=== PATIENT | female | born 1950 | race Caucasian/White ===

== ENCOUNTER 2018-05-03 13:59 | Outpatient (CLI) | payer MEDICARE, MEDICAID, SELFPAY ==
[2018-05-03 15:49] LABS: Hemoglobin A1C 8.8 % (4.5-6.2)
[2018-05-03 15:51] LABS: COMMENT (LAB VIEW ONLY) 179.77 mg/dL; Microalb ug/mg Crea 16.6 ug/mg Cr
[2018-05-03 15:53] LABS: Bilirubin Negative (Negative); Blood Negative (Negative); Clarity Clear; Glucose Negative (Negative); Ketones Negative (Negative); Leukocyte Esterase Negative (Negative); Nitrite Negative (Negative); Urobilinogen 0.2 EU/dL (Up TO 0.2); pH 5.5 (5-8)
[2018-05-03 16:22] LABS: ALT 14 U/L (12-78); AST 17 U/L (15-37); Albumin 2.9 g/dL (3.4-5.0); Alkaline Phosphatase 105 U/L (46-116); Anion Gap 6.3 mmol/L (3-11); BUN 23 mg/dL (7-18); Bilirubin, Total 0.2 mg/dL (0.2-1.0); CO2 31.7 mmol/L (21.0-32.0); CREATININE 1.37 mg/dL (0.55-1.02); Calcium 8.3 mg/dL (8.5-10.1); Chloride 106 mmol/L (98-107); Cholesterol 117 mg/dL (50-200); Estimated GFR 38.46 (mL/min/1.73m2); Glucose 117 mg/dL (70-100); HDL Cholesterol 49 mg/dL (40-60); LDL CHOLESTEROL 43 mg/dL (<100); Potassium 4.9 mmol/L (3.5-5.1); Sodium 144 mmol/L (136-145); Total Protein 6.8 g/dL (6.4-8.2); Triglyceride 208 mg/dL (30-150)
== END 2018-05-03 14:19 ==
PROVIDERS: PCP Family Medicine; Visit Provider Registered Nurse
DX: R78.5 Finding of other psychotropic drug in blood (principal); E55.9 Vitamin D deficiency, unspecified; E11.9 Type 2 diabetes mellitus without complications; I10 Essential (primary) hypertension
CPT/HCPCS: 36415; 80053; 80061; 82306; 83721; 81003; 82043; 82570; 83036; 87086

== ENCOUNTER 2018-09-14 19:08 | Emergency (ER) | payer MEDICARE, MEDICAID, SELFPAY ==
[2018-09-14] VITALS (24 sets, daily range): BP systolic 127–154; BP diastolic 49–95; PULSE 100–117; RESP 12–35; TEMP 35.1–36.8; O2SAT 93–97
--- NOTE | 2018-09-14 19:17 | W.ED.GENAD ---
Discharge Plan Disposition Patient Disposition: HOME Condition: Good Discharge Details Chief Complaint: ColdExpose Clinical Impression: Fall, Exposure to environmental cold, Accidental hypothermia Reason For Visit: ROD Primary Care Provider: Mary Ann Luo ED Provider: Santos Whitney Meds and New Rx's Prescriptions: New magnesium oxide 400 mg capsule 400 mg PO BID Qty: 30 RF: 0 Continued esomeprazole magnesium [Nexium] 40 MG capsule,delayed release(DR/EC) 40 mg PO BID RF: 0 venlafaxine [Effexor XR] 75 MG capsule,extended release 24hr 150 mg PO DAILY RF: 0 simvastatin [Zocor] 40 MG tablet 40 mg PO HS RF: 0 calcium carbonate-vitamin D3 [Calcium 600 + D(3)] 1 EACH tablet 1 ea PO DAILY RF: 0 ergocalciferol (vitamin D2) 2,000 UNIT tablet 2,000 unit PO DAILY RF: 0 lisinopril 10 MG tablet 10 mg PO DAILY RF: 0 glyburide [Diabeta] 5 MG tablet 5 mg PO BID RF: 0 tramadol 50 MG tablet 100 mg PO BID PRNRF: 0 gabapentin [Neurontin] 300 MG capsule 300 mg PO TID RF: 0 Humalog KwikPen Insulin 100 unit/mL Insulin Pen 5 unit SUBCUT QAC RF: 0 Discharge Instructions Additional Instructions: Laboratory studies will need to be repeated next week. Please follow-up with primary care. You should have your BMP and your magnesium rechecked. Take magnesium for now as it was quite low here. Continue other medications as before. Return to ED for any noticeable changes to your digits in regards to pain, color, sensation. There does not appear to be any evidence of frostbite. There is no evidence of fractures. Referrals: Mary Ann Luo [Primary Care Provider] - Medical Decision Making <Santos Whitney MD - Last Filed: 09/14/18 23:17> Patient here status post fall outside. She had a prolonged cold exposure. She complains of back pain which may be chronic. She also complains of ankle pain which may be chronic. She does not have overt evidence of frostbite. Her core temperature is not below 93. Randle with temperature sensor was placed. IV was established and warm fluids given. Bear hugger applied. Laboratory studies ordered. X-ray of the lumbar spine, pelvis and right ankle were obtained. Labs significant for an elevated white count likely stress reaction related to being in the cold. Chemistries with potassium of 5.6. She also has renal insufficiency with creatinine 1.5. Both are chronic. Potassium is a chronically elevated and she has no EKG changes. She has received IV fluids which will likely help bring it down. I am otherwise not going to treat for hyperkalemia. Her magnesium is quite low at 0.9. This is replaced with IV mag. I will send her out on oral mag. Glucose is elevated. She has not used insulin today. She is given Humalog per her sliding scale. Urine is negative. X-rays without fracture of the ankle or pelvis. Questionable fracture of the LS spine. CT scans therefore obtained. No fracture is identified, just degenerative change. Patient's temperature is back to normal. She feels better. Extremities and digits do not appear to have evidence of frostbite. Face and ears also appear normal. Safe for discharge home. She will need to follow-up with primary care next week and have repeat BMP and magnesium done. Return to ED if any issues. Lab Data Lab results reviewed: Yes I reviewed the patient's lab results. ECG Data Attestation: I personally reviewed and interpreted this ECG (s) as follows: Interpretation: Sinus tachycardia at 109. Normal intervals and axis. No acute ST changes. HPI <Santos Whitney MD - Last Filed: 09/14/18 23:17> General Mode of arrival: EMS. Date/Time Provider Initiated Documentation: 09/14/18 19:17. Limitations to Documentation: no limitations. Information obtained by: patient. HPI Narrative: Patient brought in by ambulance after she fell trying to get into her car. She landed on her buttocks and back. She did not have a loss of consciousness. However, when she fell she was unable to get up. She has been out in the cold now for a few hours. She denies syncope. She denies chest pain or shortness of breath. She has some low back pain but that is chronic and she does not think it is any worse. She has some numbness and tingling in the feet. She is very cold. Related Data Home Medications Medication Instructions Recorded Confirmed esomeprazole magnesium [Nexium] 40 mg PO BID 05/03/13 09/14/18 calcium carbonate-vitamin D3 1 ea PO DAILY 05/10/13 09/14/18 [Calcium 600 + D(3)] simvastatin [Zocor] 40 mg PO HS 05/10/13 09/14/18 venlafaxine [Effexor XR] 150 mg PO DAILY 05/10/13 09/14/18 ergocalciferol (vitamin D2) 2,000 unit PO DAILY 06/18/13 09/14/18 lisinopril 10 mg PO DAILY 06/18/13 09/14/18 gabapentin [Neurontin] 300 mg PO TID 05/30/14 09/14/18 glyburide [Diabeta] 5 mg PO BID 05/30/14 09/14/18 tramadol 100 mg PO BID PRN 05/30/14 09/14/18 Humalog KwikPen Insulin 5 unit SUBCUT [facility] 09/14/18 09/14/18 magnesium oxide 400 mg PO BID #30 cap 09/14/18 Previous Rx's Medication Instructions Recorded magnesium oxide 400 mg PO BID #30 cap 09/14/18 Allergies Allergy/AdvReac Type Severity Reaction Status Date / Time epinephrine Allergy Severe chest Unverified 09/14/18 19:29 pain/heart attack Penicillins Allergy Intermediate rsh fever Unverified 09/14/18 19:29 banana [Banana] Allergy Unverified 09/14/18 19:29 NSAIDS (Non-Steroidal Allergy unkown Unverified 09/14/18 19:29 Anti-Inflamma Sulfa (Sulfonamide Allergy rash,fever Unverified 09/14/18 19:29 Antibiotics) Tetracyclines Allergy rash fever Unverified 09/14/18 19:29 sodium polystyrene sulfonate AdvReac Severe tachy/dyspn Unverified 09/14/18 19:29 [From Kayexalate] ea/rash Niacin Preparations AdvReac Intermediate flushing Unverified 09/14/18 19:29 Review of Systems <Santos Whitney MD - Last Filed: 09/14/18 23:17> Constitutional Denies fatigue, Denies fever(s), Denies headache(s), Denies lethargy, Denies malaise and Denies weakness Eyes Denies change in vision and Denies eye pain ENT Denies facial pain, Denies headache(s), Denies nasal congestion and Denies neck pain Cardiovascular Denies chest pain, Denies syncope, Reports pedal edema, Denies lightheadedness and Denies dyspnea Respiratory Denies cough and Denies dyspnea Gastrointestinal Denies abdominal pain, Denies diarrhea, Denies nausea and Denies vomiting Genitourinary Denies dysuria and Denies pelvic pain Musculoskeletal Reports back pain, Denies neck pain and Reports numbness Integumentary/Breasts Denies wounds Neurologic Denies syncope, Denies headache(s), Denies focal weakness, Reports numbness, Denies radicular pain and Denies weakness Endocrine Denies fatigue PFSH <Santos Whitney MD - Last Filed: 09/14/18 23:17> Medical History Anemia Depression Diabetes mellitus Essential hypertension Gastroesophageal reflux disease History of breast cancer History of hepatitis C History of incisional hernia History of renal failure Migraine Morbid obesity Osteopenia Vitamin D deficiency Surgical History H/O mastectomy (Chronic) S/P cholecystectomy (Chronic) Colectomy Hernia Repair, Incisional Family History Mother No problems noted. Father No problems noted. Social History Smoking/Tobacco Use Status: Former Tobacco Use Exam <Santos Whitney MD - Last Filed: 09/14/18 23:17> Const General: cooperative and no acute distress Nutritional Appearance: obese morbidly obese Orientation: alert and oriented x3 HENMT Head: normocephalic and atraumatic Neck Neck: trachea midline and supple Chest Chest: normal palpation of entire chest wall Resp Effort & Inspection: normal respiratory effort Auscultation: clear to auscultation bilaterally Cardio Rate: tachycardic Rhythm: regular rhythm Heart Sounds: S1 normal and S2 normal Pulses: normal peripheral pulses GI Palpation: soft and nontender Other: ostomy in RLQ Back/Spine/Pelvis Thoracic/Lumbar Spine: pain with thoraco-lumbar ROM, No thoracic spinal tenderness and No lumbar spinal tenderness Pelvis: no pain with anterior-posterior compression and no pain with lateral compression Skin General skin exam: no erythema Lesions: no lesions Wounds: no wounds Neuro General: alert, oriented x3, no focal motor deficits and CN's II-XI intact bilaterally Sensory Exam: no sensory deficits noted Extrem General: pedal edema Other: No evidence of overt frostbite of digits or extremities. Some delayed capillary refill and cold toes but no erythema or pallor. Some tenderness to right ankle unclear if worse than normal.
[2018-09-14] MEDS: Lactated Ringers 1,000 ML 1000 ML IV (19:30)
--- NOTE | 2018-09-14 19:38 | DI.RAD_ITS ---
SYMPTOM/DIAGNOSIS: TRAUMA LUMBAR SPINE: The exam is limited by the patient's body habitus and mild motion on the two lateral views performed. Degenerative disc changes are again noted at L1-2. There is loss of disc height and anterior spurring. No acute fracture is visible. IMPRESSION: Limited exam. No gross evidence of an acute abnormality.
--- NOTE | 2018-09-14 19:38 | DI.RAD_ITS ---
SYMPTOM/DIAGNOSIS: TRAUMA PELVIS: No fracture or dislocation is seen. There are mild degenerative changes. IMPRESSION: No acute abnormality.
[2018-09-14 19:47] LABS: Abs Immature Grans 0.12 k/cumm (0.0-0.09); Absolute Basophil Count 0.04 k/cumm (0.0-0.2); Absolute Eosinophil Count 0.35 k/cumm (0.0-0.7); Basophils % 0.2; Eosinophils % 1.9; HCT 37.2 % (36.0-46.0); HGB 11.2 g/dL (12.0-15.5); Immature Grans % 0.7; Lymphocytes % 7.6; Mean Corp. HGB Concentration 30.1 g/dL (32.0-36.0); Mean Corpuscular Hemoglobin 24.6 pg (27.0-33.0); Mean Corpuscular Volume 81.8 fL (80-95); Mean Platelet Volume 10.3 fL (8.0-11.0); Monocytes % 3.4; Neutrophils % 86.2; Platelet Count 175 x1000/uL (130-400); RBC 4.55 m/cumm (4.00-5.20); White Blood Cell Count 18.37 k/cumm (4.4-10.8)
[2018-09-14 20:03] LABS: ALT 18 U/L (12-78); AST 27 U/L (15-37); Albumin 2.9 g/dL (3.4-5.0); Alkaline Phosphatase 130 U/L (46-116); Anion Gap 9.2 mmol/L (3-11); BUN 36 mg/dL (7-18); Bilirubin, Total 0.2 mg/dL (0.2-1.0); CO2 28.8 mmol/L (21.0-32.0); CREATININE 1.54 mg/dL (0.55-1.02); Chloride 100 mmol/L (98-107); Glucose 322 mg/dL (70-100); Magnesium 0.9 mg/dL (1.8-2.4); Potassium 5.6 mmol/L (3.5-5.1); Sodium 138 mmol/L (136-145); Total Protein 7.9 g/dL (6.4-8.2)
[2018-09-14 20:08] LABS: Troponin I < 0.02 ng/mL (0.00-0.06)
[2018-09-14 20:17] LABS: Absolute Monocyte Count 0.62 k/cumm (0.11-0.7); Absolute Neutrophil Count 15.83 k/cumm (1.2-6.7)
[2018-09-14 20:45] LABS: Bilirubin Negative (Negative); Blood Negative (Negative); Clarity Clear; Glucose 100 mg/dL (Negative); Ketones Negative (Negative); Leukocyte Esterase Negative (Negative); Nitrite Negative (Negative); Specific Gravity 1.025 (1.005-1.025); Urobilinogen 0.2 EU/dL (Up TO 0.2); pH 5.5 (5-8)
[2018-09-14] MEDS: MAGNESIUM SULFATE 2 GM/50 ML BAG IVPB (20:51)
--- NOTE | 2018-09-14 20:56 | DI.VRAD_ITS ---
EXAM: XR Lumbar Spine, 2 or 3 Views EXAM DATE/TIME: 09/14/2018 8:17 PM CLINICAL HISTORY: 68 years old, female; Injury or trauma; Fall; Initial encounter; Blunt trauma (contusions or hematomas); Injury date: 09/14/2018; Injury details: Fell backwards getting into vehicle TECHNIQUE: XR of the lumbar spine, 2 or 3 views. COMPARISON: CR LUMBAR SPINE COMPLETE 02/26/2014 1:13 PM FINDINGS: Vertebrae: The osseous mineralization is within normal limits. There are 5 nonrib-bearing lumbar vertebra. Again seen are multilevel degenerative changes, most prominent at L1-L2 where there is loss of intervertebral disc space height, endplate sclerotic changes, vacuum disc, and large marginal osteophytes. There is multilevel lower lumbar foraminal narrowing. The vertebral body heights are maintained. There is a superior endplate limbus fracture at L4 anteriorly, new since the comparison study on 02/26/2014 but with associated sclerosis, acute nondisplaced limits fractures not excluded in the setting trauma. Intraperitoneal space: There are right upper quadrant surgical clips. There is a partially imaged curvilinear density on the lateral image terminating in the device overlying the pelvis, clinical correlation is recommended. Soft tissues: Normal. IMPRESSION: 1. Lucency in the anterior superior corner of the L4 vertebral body, new since 02/26/2014 with surrounding sclerosis, a nondisplaced acute limbus fracture is not excluded in the setting of trauma. No additional fractures identified. 2. Multilevel degenerative changes. Dictated and Authenticated by: Ines Hansen MD. Ordering:ALEJANDRO Graham MD
--- NOTE | 2018-09-14 20:57 | DI.VRAD_ITS ---
EXAM: XR Pelvis, 1 or 2 Views EXAM DATE/TIME: 09/14/2018 7:39 PM CLINICAL HISTORY: 68 years old, female; Injury or trauma; Fall; Initial encounter; Blunt trauma (contusions or hematomas); Does not apply; Pelvic region; Injury date: 09/14/2018; Injury details: Fell backwards trying to get into vehicle TECHNIQUE: XR pelvis, 1 or 2 views COMPARISON: CT ABD PELVIS WO CONTRAST 06/18/2013 3:26 PM FINDINGS: Bones/joints: There is a temperature probe overlying the pelvis. The sacroiliac joints, pubic symphysis, and hips are intact. There are mild degenerative changes of the bilateral hips. No acute fracture or malalignment. Soft tissues: Normal. IMPRESSION: No acute fracture or malalignment. Dictated and Authenticated by: Ines Hansen MD. Ordering:ALEJANDRO Graham MD
[2018-09-14 21:10] LABS: Bacteria Negative HPF (Negative); C & S Indicated? No; Casts Negative LPF (Negative); Crystals Negative HPF (Negative); Epithelial Cells Few HPF (Negative); Mucus Trace (Negative); WBC Negative HPF (0-5)
--- NOTE | 2018-09-14 21:10 | DI.RAD_ITS ---
SYMPTOM/DIAGNOSIS: FALL, TRAUMA RIGHT ANKLE: There are no prior comparison exams. Two screws are seen through the distal tibia. There are severe degenerative changes of the ankle joint. No fracture or ankle mortise disruption is seen. Heel spurs are noted. IMPRESSION: Post surgical and degenerative changes. No acute abnormality.
--- NOTE | 2018-09-14 21:39 | DI.CT_ITS ---
SYMPTOM/DIAGNOSIS: FALL, TRAUMA CT LUMBAR SPINE: The exam is mildly limited by patient body habitus and motion. There are degenerative disc changes at L1-2 with anterior osteophytes. There is a chronic appearing bony density seen anterior to the L1-2 disc space. No acute fractures are seen. The remaining discs are well maintained. There are facet degenerative changes. The aorta is normal in diameter. The S-I joints appear intact. IMPRESSION: Degenerative changes greatest at L1-2. No acute abnormality.
--- NOTE | 2018-09-14 21:43 | DI.VRAD_ITS ---
EXAM: XR Right Ankle Complete, 3 or more Views EXAM DATE/TIME: 09/14/2018 9:11 PM CLINICAL HISTORY: 68 years old, female; Injury or trauma; Fall; Initial encounter; Blunt trauma; Ankle; Right; Injury date: 09/14/2018; Injury details: Fell backwards on ice; Prior surgery; Surgery date: 6+ months TECHNIQUE: XR Right ankle 3 or more views. COMPARISON: No relevant prior studies available. FINDINGS: Bones/joints: The osseous mineralization is within normal limits. There are 2 screws traversing the distal tibia fixating an oblique distal tibia fracture. No additional fractures identified. The ankle mortise is intact with mild joint space narrowing. There are mild degenerative changes in mid foot. Mild diffuse soft tissue edema. Soft tissues: See Bones/joints Finding. IMPRESSION: 1. Prior internal fixation of an oblique fracture in the distal tibia. No acute fracture or malalignment. 2. Degenerative changes of the ankle. 3. Diffuse soft tissue edema. Dictated and Authenticated by: Ines Hansen MD. Ordering:ALEJANDRO Graham MD
--- NOTE | 2018-09-14 22:11 | NUR.NOTE ---
Nursing Note: Patient stating she has a headache and that usually this is because of high blood sugar. Normally runs 160-200 per pt. Bgl 302, notified, verbal permission for pt to take her own Humalog insulin pen per sliding scale. Pt administered 23 units of Humalog into R leg.
--- NOTE | 2018-09-14 22:23 | DI.VRAD_ITS ---
EXAM: CT Lumbar Spine Without Contrast EXAM DATE/TIME: 09/14/2018 9:11 PM CLINICAL HISTORY: 68 years old, female; Injury or trauma; Fall; Initial encounter; Blunt trauma (contusions or hematomas); Injury date: 09/14/2018; Injury details: Fell backwards on ice TECHNIQUE: Axial computed tomography images of the lumbar spine without intravenous contrast. All CT scans at this facility use at least one of these dose optimization techniques: automated exposure control; mA and/or kV adjustment per patient size (includes targeted exams where dose is matched to clinical indication); or iterative reconstruction. Coronal and sagittal reformatted images were created and reviewed. COMPARISON: CR XR lumbar spine AP, LAT 09/14/2018 7:56 PM FINDINGS: Vertebrae: The lung bases are within normal limits. No acute fracture or malalignment. The vertebral body heights are maintained. There are multilevel degenerative changes of the spine, most prominent at L1-L2 where there is loss of intervertebral disc space height, vacuum disc phenomenon, and moderate anterior osteophytes. There are chronic appearing changes at the anterior superior endplates of L4 and L5 without evidence of acute fracture. Discs/Spinal canal/Neural foramina: Mild bilateral sacroiliac sclerosis and vacuum phenomenon, likely degenerative. Soft tissues: Unremarkable. Vasculature: There is trace atherosclerotic calcification of the aorta and branch vessels. IMPRESSION: No acute fracture or malalignment. Multilevel degenerative changes. Dictated and Authenticated by: Ines Hansen MD. Ordering:ALEJANDRO Graham MD
== END 2018-09-14 23:22 | disposition home or self-care (01) ==
PROVIDERS: Emergency Provider Emergency Medicine; PCP Family Medicine
DX: T68.XXXA Hypothermia, initial encounter (principal); X31.XXXA Exposure to excessive natural cold, initial encounter; V48.4XXA Person boarding or alighting a car injured in noncollision transport accident, initial encounter; E83.42 Hypomagnesemia; M54.5 Low back pain; M25.571 Pain in right ankle and joints of right foot; R20.2 Paresthesia of skin; E11.65 Type 2 diabetes mellitus with hyperglycemia; Z79.4 Long term (current) use of insulin; I12.9 Hypertensive chronic kidney disease with stage 1 through stage 4 chronic kidney disease, or unspecified chronic kidney disease; N18.9 Chronic kidney disease, unspecified; E11.22 Type 2 diabetes mellitus with diabetic chronic kidney disease
CPT/HCPCS: 36415; 51702; 80053; 93005; 96361; 96365; 99285; 72100; 72131; 72170; 73610; 81003; 81015; 83735; 84484; 85025; 93010

== ENCOUNTER 2019-12-10 15:35 | Outpatient (REF) | payer OTHER, MEDICAID, SELFPAY ==
[2019-12-10 15:28] LABS: Anion Gap 6.7 mmol/L (3-11); BUN 34 mg/dL (7-18); CO2 29.3 mmol/L (21.0-32.0); CREATININE 1.67 mg/dL (0.55-1.02); Calcium 8.9 mg/dL (8.5-10.1); Chloride 102 mmol/L (98-107); Estimated GFR 30.51 (mL/min/1.73m2); Glucose 183 mg/dL (74-106); Potassium 5.6 mmol/L (3.5-5.1); Sodium 138 mmol/L (136-145)
== END 2019-12-10 15:55 ==
LOC: LBN 15:35
PROVIDERS: PCP Family Medicine; Visit Provider Family Medicine
DX: E11.9 Type 2 diabetes mellitus without complications (principal)
CPT/HCPCS: 80048

== ENCOUNTER 2020-12-08 20:12 | Emergency (ER) | payer OTHER, MEDICAID, SELFPAY ==
[2020-12-08] VITALS (22 sets, daily range): BP systolic 118–165; BP diastolic 55–84; PULSE 106–122; RESP 14–51; TEMP 37; O2SAT 93–98
--- NOTE | 2020-12-08 20:15 | DI.RAD_ITS ---
EXAM: XR PELVIS AP CLINICAL HISTORY: fall, pain rt. TECHNIQUE: 2D digital imaging was performed. COMPARISON: No exams were available for comparison FINDINGS: Single AP view of the pelvis reveals no evidence of fracture or diastasis of the symphysis pubis and sacroiliac joints. No obvious hip fractures nor significant degenerative changes in the hips. Abund ant fecal material is noted on the right side which is probably in the cecum and possibly related to a hernia. IMPRESSION: Findings as above but no fracture of the pelvis and hips evident. DATA REPOSITORY: RADIATION DOSE DELIVERED:
--- NOTE | 2020-12-08 20:15 | DI.RAD_ITS ---
EXAM: XR FEMUR RT CLINICAL HISTORY: fall, pain rt hip. TECHNIQUE: 2D digital imaging was performed. COMPARISON: No exams were available for comparison FINDINGS: There is no evidence of hip or femur fracture. No knee joint effusion. No osseous lesions. IMPRESSION: No fracture evident. DATA REPOSITORY: RADIATION DOSE DELIVERED:
--- NOTE | 2020-12-08 20:37 | ED.GENADUL_ITS ---
Discharge Plan Disposition Patient Disposition: HOME Condition: Stable Discharge Details Clinical Impression: Contusion of hip, right, Fall Primary Care Provider: Mary Ann Luo ED Provider: Pa Evangelista Home Meds and New Rx's Prescriptions: Continued esomeprazole magnesium [Nexium] 40 MG capsule,delayed release(DR/EC) 40 mg PO BID RF: 0 venlafaxine [Effexor XR] 75 MG capsule,extended release 24hr 150 mg PO DAILY RF: 0 simvastatin [Zocor] 40 MG tablet 40 mg PO HS RF: 0 calcium carbonate-vitamin D3 [Calcium 600 + D(3)] 1 EACH tablet 1 ea PO DAILY RF: 0 ergocalciferol (vitamin D2) 2,000 UNIT tablet 2,000 unit PO DAILY RF: 0 lisinopril 10 MG tablet 10 mg PO DAILY RF: 0 glyburide [Diabeta] 5 MG tablet 5 mg PO BID RF: 0 tramadol 50 MG tablet 100 mg PO BID PRNRF: 0 gabapentin [Neurontin] 300 MG capsule 300 mg PO TID RF: 0 insulin lispro [Humalog KwikPen Insulin] 100 unit/mL Insulin Pen 5 unit SUBCUT QAC RF: 0 magnesium oxide 400 mg capsule 400 mg PO BID Qty: 30 RF: 0 Lantus Solostar U-100 Insulin 100 unit/mL (3 mL) insulin pen 56 unit SUBCUT BID RF: 0 aspirin 81 mg Tablet 81 mg PO DAILY RF: 0 albuterol sulfate [Ventolin HFA] 90 mcg/actuation Hfa Aerosol Inhaler 2 puff INHALATION Q6H RF: 0 Discharge Instructions Instructions: Fall Prevention for Older Adults (ED), Contusion in Adults (ED) Additional Instructions: Please take ibuprofen over the counter. Take 400mg by mouth every 6 hours as needed for pain. Please contact your primary care physician to arrange follow-up. Return to the ER for any worsening or new concerning symptoms. Referrals: Mary Ann Luo [Primary Care Provider] - Medical Decision Making 2040 -- 70-year-old female with morbid obesity presents after trip and fall from standing to the ground landing on her right hip, now with right hip pain that is worse with ambulation. She is neurovascular intact distally. Concern for hip fracture. Plan to obtain x-ray. 2199 --x-ray of the pelvis was interpreted by radiology: No acute abnormality. X-ray of the right femur was interpreted by radiology: No acute fracture. Patient was able to get up with walker and ambulate. She typically uses walker or wheelchair at baseline. Plan for discharge with outpatient follow-up. I spoke with the patient and her daughter about plan. Usual and customary discharge instructions were reviewed with him. Fall prevention discharge instr uctions were provided. HPI General Mode of arrival: EMS . Date/Time Provider Initiated Documentation: 12/08/20 20:29 . Limitations to Documentation: no limitations . Information obtained by: patient and EMS . HPI Narrative: 70-year-old female with multiple medical problems including morbid obesity, presents with chief complaint of right hip pain. Patient has just prior to arrival she tripped and fall while getting out of her car and landed on the pavement. She landed on her right hip with the fall. She hit her head lightly on a tire and did not lose consciousness. She has no headache or neck pain. She has no back pain. She is no chest pain or abdominal pain. Pain in the hip is moderate and worse with attempted ambulation and movement. No associated numbness or tingling Related Data Home Medications Medication Instructions Recorded Confirmed esomeprazole magnesium [Nexium] 40 mg PO BID 05/03/13 12/08/20 calcium carbonate-vitamin D3 1 ea PO DAILY 05/10/13 12/08/20 [Calcium 600 + D(3)] simvastatin [Zocor] 40 mg PO HS 05/10/13 12/08/20 venlafaxine [Effexor XR] 150 mg PO DAILY 05/10/13 12/08/20 ergocalciferol (vitamin D2) 2,000 unit PO DAILY 06/18/13 12/08/20 lisinopril 10 mg PO DAILY 06/18/13 12/08/20 gabapentin [Neurontin] 300 mg PO TID 05/30/14 12/08/20 glyburide [Diabeta] 5 mg PO BID 05/30/14 12/08/20 tramadol 100 mg PO BID PRN 05/30/14 12/08/20 insulin lispro [Humalog KwikPen 5 unit SUBCUT QAC 09/14/18 12/08/20 Insulin] magnesium oxide 400 mg PO BID #30 cap 09/14/18 12/08/20 Lantus Solostar U-100 Insulin 56 unit SUBCUT BID 12/08/20 12/08/20 albuterol sulfate [Ventolin HFA] 2 puff INHALATION Q6H 12/08/20 12/08/20 aspirin 81 mg PO DAILY 12/08/20 12/08/20 Previous Rx's Medication Instructions Recorded magnesium oxide 400 mg PO BID #30 cap 09/14/18 Allergies Allergy/AdvReac Type Severity Reaction Status Date / Time epinephrine Allergy Severe chest Unverified 12/08/20 20:23 pain/heart attack Penicillins Allergy Intermediate rsh fever Unverified 12/08/20 20:23 banana [Banana] Allergy Unverified 12/08/20 20:23 NSAIDS (Non-Steroidal Allergy unkown Unverified 12/08/20 20:23 Anti-Inflamma Sulfa (Sulfonamide Allergy rash,fever Unverified 12/08/20 20:23 Antibiotics) Tetracyclines Allergy rash fever Unverified 12/08/20 20:23 sodium polystyrene sulfonate AdvReac Severe tachy/dyspn Unverified 12/08/20 20:23 [From Kayexalate] ea/rash Niacin Preparations AdvReac Intermediate flushing Unverified 12/08/20 20:23 General Stated Complaint: Trauma TASHA: 3 Review of Systems All systems reviewed & are unremarkable except as noted in HPI and below Constitutional Constitutional: Denies fever(s) Cardiovascular Cardiovascular: Denies chest pain and Denies dyspnea Respiratory Respiratory: Denies dyspnea Gastrointestinal Gastrointestinal: Denies abdominal pain Musculoskeletal Musculoskeletal: Reports as per HPI PFSH Medical History Anemia Depression Diabetes mellitus Essential hypertension Gastroesophageal reflux disease History of breast cancer History of hepatitis C History of incisional hernia History of renal failure Migraine Morbid obesity Osteopenia Vitamin D deficiency Surgical History Colectomy H/O mastectomy Hernia Repair, Incisional x2 S/P cholecystectomy Family History Mother No problems noted. Father No problems noted. Social History Smoking/Tobacco Use Status: Former Tobacco Use Smoking risk assessment performed?: Yes Alcohol Intake: never Drug use: Never Substance use type: does not use Do you feel safe at home: Yes Do you feel safe in your relationship?: Yes Exam Const General: cooperative and no acute distress HENMT Head: normocephalic and atraumatic Mouth: moist mucous membranes Eyes Conjunctivae: normal conjunctivae Sclera: normal sclerae Neck Neck: trachea midline and supple Resp Auscultation: clear to auscultation bilaterally, no rales, no rhonchi and no wheezes Cardio Rate: regular rate and not tachycardic Rhythm: regular rhythm Pulses: dorsalis pedis present on the right 2+ GI Palpation: soft, not firm, no guarding, no masses, not rigid and nontender Skin General skin exam: no rashes or lesions noted Neuro General: patient alert, patient awake, patient oriented x3 and tone normal Extrem General: no edema Right lower extremity: hip/thigh Details: tenderness Location: of the hip Location: laterally; no deformity Psych Appearance: grossly normal Mental Status: mental status grossly normal Speech and Movement: speech and movement normal Course Vital Signs Vital signs: Vital Signs Temperature 37 C 12/08/20 20:16 Pulse 122 H 12/08/20 20:16 Respiratory Rate 22 12/08/20 20:16 Blood Pressure 141/70 H 12/08/20 20:16 Pulse Oximetry 96 12/08/20 20:16 Temperature 37 C 12/08/20 20:16 Temperature Source Skin 12/08/20 20:16 Pulse 122 H 12/08/20 20:16 Respiratory Rate 22 12/08/20 20:16 Respiratory Effort Incrsd Work of Breathing 12/08/20 20:28 Respiratory Depth Normal 12/08/20 20:26 Respiratory Pattern Normal 12/08/20 20:26 Blood Pressure 141/70 H 12/08/20 20:16 Blood Pressure Position Supine 12/08/20 20:16 Pulse Oximetry 96 12/08/20 20:16 Oxygen Delivery Method Room Air 12/08/20 20:16 Oxygen Flow Rate 0 12/08/20 20:16 Pain Level 8 12/08/20 20:26
--- NOTE | 2020-12-08 21:24 | DI.VRAD_ITS ---
PROCEDURE INFORMATION: Exam: XR Pelvis Exam date and time: 12/08/2020 8:30 PM Age: 70 years old Clinical indication: Injury or trauma; Blunt trauma (contusions or hematomas); Right; Injury date: 12/08/20; Injury details: Fall, pain R hip TECHNIQUE: Imaging protocol: XR pelvis. Views: 1 or 2 view. COMPARISON: SC XR pelvis AP 09/14/2018 7:56 PM FINDINGS: Bones/joints: Unremarkable. No acute fracture. Soft tissues: Unremarkable. IMPRESSION: No acute abnormality. Dictated and Authenticated by: Angel Luis Covington MD. Ordering:DANIELLE Winn MD
--- NOTE | 2020-12-08 21:24 | DI.VRAD_ITS ---
PROCEDURE INFORMATION: Exam: XR Right Femur Exam date and time: 12/08/2020 8:30 PM Age: 70 years old Clinical indication: Injury or trauma; Blunt trauma; Right; Injury date: 12/08/20; Injury details: Fall, R hip pain TECHNIQUE: Imaging protocol: XR Right femur. Views: 2 views. COMPARISON: No relevant prior studies available. FINDINGS: Bones/joints: Unremarkable. No acute fracture. Soft tissues: Soft tissue calcifications of the anterior thigh. IMPRESSION: No acute fracture. Dictated and Authenticated by: Angel Luis Covington MD. Ordering:DANIELLE Winn MD
[2020-12-08] MEDS: Ibuprofen 600 MG TAB PO (22:41)
== END 2020-12-08 22:55 | disposition home or self-care (01) ==
PROVIDERS: Emergency Provider Student in an Organized Health Care Education/Training Program; PCP Family Medicine
DX: S70.01XA Contusion of right hip, initial encounter (principal); W18.39XA Other fall on same level, initial encounter
CPT/HCPCS: 73552; 99284; 72170

== ENCOUNTER 2021-11-04 14:07 | Inpatient (IN) | payer MEDICARE, MEDICAID, SELFPAY ==
[2021-11-04] VITALS (45 sets, daily range): BP systolic 126–158; BP diastolic 68–104; PULSE 100–123; RESP 13–34; TEMP 36.7–36.9; O2SAT 92–99
--- NOTE | 2021-11-04 | DI.CT_ITS ---
Exam(s) CT THORACIC LUMBAR SPINE REC CT CHEST PE ABD PELVIS W EXAM: CT CHEST PE ABD PELVIS W and CT thoracic and lumbar spine recons CLINICAL HISTORY: tachycardic, hypoxic, fall, mid back pain. TECHNIQUE: Imaging Protocol: Axial CT angiography was performed with multi-slice acquisition and mu lti-planar and/or 3D reconstructions. CONTRAST MATERIAL: Intravenous: Omnipaque 350 Contrast volume:100 mL COMPARISON: CT CT lumbar spine wo from 09/14/2018 FINDINGS: The examination is limited due to patient motion artifact. CHEST: Tracheobronchial tree: Patent where visualized. Pulmonary parenchyma: No consolidation or dominant measurable mass. No architectural distortion. Mild atelectasis in the lung bases. Pulmonary Arteries: No evidence of filling defect to suggest pulmonary emboli. Mediastinum and Lashay: No dominant adenopathy or fluid collection. The esophagus is unremarkable. Visualized thyroid gland: Unremarkable. Pleura: No effusion or pneumothorax. Heart: The heart is not dilated. Coronary artery calcifications are present. No pericardial effusion . Aorta: Thoracic aorta non-dilated. No evidence of dissection. Atherosclerosis. Bones: Within normal limits for the patient's age. Soft tissues: Unremarkable. Thoracic spine recons: Degenerative changes are seen in the spine and consistent with the patient's a ge. No acute fractures or subluxations are seen in the thoracic spine. ABDOMEN: Liver: Normal density. There is a 2.9 x 2.3 cm peripherally calcified mass which appears to arise fro m the left lobe of the liver. Portal, Superior Mesenteric, and Splenic Veins: Unremarkable. Gallbladder and Biliary Tract: Status post cholecystectomy. No biliary ductal dilatation. Pancreas: Normal density, no abnormal calcifications or inflammatory process. Spleen: Normal. Adrenals: No masses seen. Kidneys: Normal size, contour and axis. No radiodense stones or obstructive uropathy. There is a 1.1 cm simple cyst in the superior pole of the left kidney. No follow-up is recommended. Abdominal Aorta: Abdominal portion non-dilated. Atherosclerosis. Bowel: The patient has a right lower quadrant colostomy. There has been a near-total colectomy. No evidence of appendicitis. No evidence of bowel obstruction or inflammation. Peritoneal Cavity: No ascites, collection or mesenteric inflammatory response. No free air. Lymph Nodes: Within normal limits. Bones: Within normal limits for the patient's age. Soft Tissues: Unremarkable. Lumbar spine recons: Age-appropriate degenerative changes are seen in the lumbar spine. No acute fra cture or subluxation in the lumbar spine is seen. PELVIS: Bladder: Evaluation of the urinary bladder is limited due to underdistention. There is a Randle cy ter in place. Reproductive Organs: There is a 7.3 x 8.1 cm cystic lesion in the left adnexa. There is a 3.2 x 2.8 cm cystic lesion in the right adnexa. These are likely ovarian in origin. There is a 4.2 cm x 2.6 c m hypodense area within the uterus. Lymph Nodes: Within normal limits. Bones: Within normal limits. IMPRESSION: 1. No evidence pulmonary embolism, thoracic aortic dissection or aneurysm. 2. No acute pulmonary process. 3. No acute abdominal pelvic process. 4. Bilateral adnexal masses. These may be ovarian in origin. Follow-up with pelvic ultrasound and/o r MRI is recommended for further characterization. 5. Hypodense lesion seen in the uterus. Differential considerations include a uterine fibroid or oth er myometrial mass. Fluid within the endometrial canal cannot be excluded. Ultrasound and/or MRI is recommended for further characterization. 6. 2.9 x 2.3 cm peripherally calcified mass which appears to arise from the liver. MRI of the abdome n is recommended for further evaluation. 7. No acute fracture of the thoracic or lumbar spine. RADIATION DOSE DELIVERED: Total DLP DATA REPOSITORY: All CT scans at this facility are submitted to the National Radiology Data Registry (NRDR) Dose Index Registry (DIR) with the [employer] (A[employer]). RADIATION OPTIMIZATION: All CT scans at this facility use at least one of these dose optimization te chniques: automated exposure control; mA and/or kV adjustment per patient size (includes targeted exa ms where dose is matched to clinical indication); or iterative reconstruction.
--- NOTE | 2021-11-04 14:30 | DI.CT_ITS ---
Exam(s) CT HEAD WO EXAM: CT HEAD WO CLINICAL HISTORY: altered, fall. TECHNIQUE: Imaging Protocol: Axial computed tomography images with coronal and sagittal reformatted images were created and reviewed COMPARISON: CT ABD PELVIS WO CONTRAST from 06/18/2013 FINDINGS: Ventricles and Extra axial spaces: Normal in size and morphology for the patient's age. Hemorrhage: None. Cerebral parenchyma: No acute territorial infarct. There are areas of decreased attenuation in the w pablo matter most consistent with small vessel ischemic disease. Midline shift: None. Brainstem/Cerebellum: Normal. Calvarium: Normal. Visualized Paranasal sinuses/Mastoids: Clear. Soft Tissues: Unremarkable. IMPRESSION: No acute intracranial process. RADIATION DOSE DELIVERED: 922.7mGy.cm Total DLP DATA REPOSITORY: All CT scans at this facility are submitted to the National Radiology Data Registry (NRDR) Dose Index Registry (DIR) with the [employer] (ACR). RADIATION OPTIMIZATION: All CT scans at this facility use at least one of these dose optimization te chniques: automated exposure control; mA and/or kV adjustment per patient size (includes targeted exa ms where dose is matched to clinical indication); or iterative reconstruction.
[2021-11-04 14:53] LABS: Absolute Basophil Count 0.07 10^3/uL (0.0-0.2); Absolute Eosinophil Count 0.27 10^3/uL (0.0-0.7); Absolute Lymphocyte Count 1.54 10^3/uL (1.2-3.4); Basophils % 0.5; Eosinophils % 1.8; HCT 38.8 % (36.0-46.0); HGB 11.6 g/dL (11.2-15.7); Immature Grans % 0.7; Lymphocytes % 10.4; MCH 25.2 pg (27.0-33.0); MCHC 29.9 % (32.0-36.0); MCV 84.2 fL (80-95); MPV 12.1 fL (8.0-11.0); Monocytes % 4.5; Neutrophils % 82.1; Nucleated RBC 0 %; Platelet Count 175 10^3/uL (130-400); RBC 4.61 10^6/uL (3.93-5.22); RDW 15.7 % (11.7-14.6); RDW-SD 47.1 fL; WBC 14.76 10^3/uL (4.4-10.8)
[2021-11-04 14:54] LABS: Absolute Monocyte Count 0.66 10^3/uL (0.1-0.8); Absolute Neutrophil Count 12.12 10^3/uL (1.2-6.7)
[2021-11-04] MEDS: Ondansetron 4 MG/2 ML VIAL IVP (15:33)
--- NOTE | 2021-11-04 15:35 | ED.GENADUL_ITS ---
Discharge Plan Disposition Patient Disposition: [facility] INPATIENT Condition: Serious Discharge Details Chief Complaint: Trauma Clinical Impression: Acute UTI, Fall, Back pain, Hyperkalemia Primary Care Provider: Mary Ann Luo ED Provider: Pa Evangelista Home Meds and New Rx's Prescriptions: No Action esomeprazole magnesium [Nexium] 40 MG capsule,delayed release(DR/EC) 40 mg PO BID 0RF venlafaxine [Effexor XR] 75 MG capsule,extended release 24hr 150 mg PO DAILY 0RF simvastatin [Zocor] 40 MG tablet 40 mg PO HS 0RF calcium carbonate-vitamin D3 [Calcium 600 + D(3)] 1 EACH tablet 1 ea PO DAILY 0RF ergocalciferol (vitamin D2) 2,000 UNIT tablet 2,000 unit PO DAILY 0RF lisinopril 10 MG tablet 10 mg PO DAILY 0RF Label Comments: not taking glyburide [Diabeta] 5 MG tablet 5 mg PO BID 0RF tramadol 50 MG tablet 100 mg PO BID PRN0RF gabapentin [Neurontin] 300 MG capsule 300 mg PO TID 0RF Label Comments: takes 600mg hs only-does not take during the day insulin lispro [Humalog KwikPen Insulin] 100 unit/mL Insulin Pen 5 unit SUBCUT QAC 0RF Rx Instructions: sliding scale magnesium oxide 400 mg capsule 400 mg PO BID Qty: 30 0RF Lantus Solostar U-100 Insulin 100 unit/mL (3 mL) insulin pen 56 unit SUBCUT BID 0RF Label Comments: INJECT 56 UNITS SUBCUTANEOUSLY TWO TIMES A DAY- Once in the am and once in the pm aspirin 81 mg Tablet 81 mg PO DAILY 0RF albuterol sulfate [Ventolin HFA] 90 mcg/actuation Hfa Aerosol Inhaler 2 puff INHALATION Q6H 0RF Medical Decision Making 1377 -- 71-year-old female with morbid obesity, fell attempting to stand from her chair and injured her back. Patient received fentanyl by EMS and now has altered mental status. History and review of systems as well as examination is somewhat limited. Patient is normotensive but tachycardic as well as hypoxic with tachypnea. I am concerned about potential pulmonary embolism as well as acute traumatic injury occluding pneumothorax and spinal fracture. Plan to obtain CT imaging of the chest to assess for PE as well as abdomen pelvis and thoracic and lumbar spine to assess for acute traumatic injury. Patient having some nausea. Will give Zofran 4 mg IV. --Labs reviewed and hyperkalemia noted with potassium of 6.1. An EKG was obtained and reviewed and interpreted by me: Please see report, sinus tachycardia 118 bpm, normal intervals with no intraventricular conduction delay. CT of the head was interpreted by radiology: No acute injury. CT of the chest abdomen pelvis was interpreted by radiology: IMPRESSION: No main or lobar pulmonary embolism. IMPRESSION: 1. No acute/traumatic abnormality in the abdomen or pelvis. 2. Right adnexal cyst 3.7 cm. Further evaluation with prompt non-emergent ultrasound or prompt non-emergent MRI is recommended to characterize. (Reference: Piter) 3. Multiple low-density uterine masses likely fibroids. CT of the lumbar and thoracic spine interpreted by radiology: No fracture. On reassessment, patient's mentation has improved. She continues to have back discomfort and nursing is concerned that she cannot safely ambulate without assistance. Patient was given initial bolus of 500 mL LR and reassessed and tachycardia persisted. Additional labs reviewed and cathed urine specimen concerning for greater than 50 WBCs with leukocytosis noted. I spoke with the patient she denies dysuria but does note that she could have a urinary tract infection -it sounds like she does not urinate frequently. Plan to check blood cultures, lactate and give additional IV fluid. I will give another bolus of 500 mL LR. Patient will be given Levaquin 750 mL. I called and spoke with the hospitalist, Dr. De Guzman, discussed ED presentation course, he recommends starting Lokelma and also checking a procalcitonin. Urine culture was not sent initially due to contamination with epithelial cells despite catheterized specimen I will repeat UA. HPI General Mode of arrival: EMS . Date/Time Provider Initiated Documentation: 11/04/21 14:38 . Limitations to Documentation: altered mental status . Information obtained by: patient . HPI Narrative: 71-year-old female with history noted in medical record of morbid obesity, hyperlipidemia, diabetes, hepatitis C, here with chief complaint of mid back pain. Patient noted she was attempting to get up out of her chair and slipped and fell to the floor. She injured her back during the fall. Patient did not hit her head and has no headache. Patient did not lose consciousness but does note that she felt a little dizzy as she was standing. Pain in the back was severe and constant. EMS administered fentanyl 100 mcg which did help her pain but then made her feel nauseous and confused. She was given Zofran ODT by EMS. History and review of systems is somewhat limited secondary to altered mental status. Patient was not on the ground for prolonged period of time - maybe 30minutes. Related Data Home Medications Medication Instructions Recorded Confirmed esomeprazole magnesium 40 mg 40 mg PO BID 05/03/13 11/04/21 capsule,delayed release (Nexium) calcium carbonate 600 mg-vitamin 1 ea PO DAILY 05/10/13 11/04/21 D3 10 mcg (400 unit) tablet (Calcium 600 + D(3)) simvastatin 40 mg tablet (Zocor) 40 mg PO HS 05/10/13 11/04/21 venlafaxine 75 mg capsule,extended 150 mg PO DAILY 05/10/13 11/04/21 release 24 hr (Effexor XR) ergocalciferol (vitamin D2) 50 mcg 2,000 unit PO DAILY 06/18/13 11/04/21 (2,000 unit) tablet lisinopril 10 mg tablet 10 mg PO DAILY 06/18/13 11/04/21 gabapentin 300 mg capsule 300 mg PO TID 05/30/14 11/04/21 (Neurontin) glyburide 5 mg tablet (Diabeta) 5 mg PO BID 05/30/14 11/04/21 tramadol 50 mg tablet 100 mg PO BID PRN 05/30/14 11/04/21 insulin lispro 100 unit/mL 5 unit SUBCUT QAC 09/14/18 11/04/21 subcutaneous pen (Humalog KwikPen (U-100) Insulin) magnesium oxide 400 mg PO BID #30 cap 09/14/18 11/04/21 albuterol sulfate 90 mcg/actuation 2 puff INHALATION Q6H 12/08/20 11/04/21 aerosol inhaler (Ventolin HFA) aspirin 81 mg tablet 81 mg PO DAILY 12/08/20 11/04/21 insulin glargine 100 unit/mL (3 56 unit SUBCUT BID 12/08/20 11/04/21 mL) subcutaneous pen (Lantus Solostar U-100 Insulin) Previous Rx's Medication Instructions Recorded magnesium oxide 400 mg PO BID #30 cap 09/14/18 Allergies Allergy/AdvReac Type Severity Reaction Status Date / Time epinephrine Allergy Severe chest Unverified 12/08/20 20:23 pain/heart attack Penicillins Allergy Intermediate rsh fever Unverified 12/08/20 20:23 banana [Banana] Allergy Unverified 12/08/20 20:23 NSAIDS (Non-Steroidal Allergy unkown Unverified 12/08/20 20:23 Anti-Inflamma Sulfa (Sulfonamide Allergy rash,fever Unverified 12/08/20 20:23 Antibiotics) Tetracyclines Allergy rash fever Unverified 12/08/20 20:23 sodium polystyrene sulfonate AdvReac Severe tachy/dyspn Unverified 12/08/20 20:23 [From Kayexalate] ea/rash Niacin Preparations AdvReac Intermediate flushing Unverified 12/08/20 20:23 General Stated Complaint: Trauma TASHA: 3 Review of Systems All systems reviewed & are unremarkable except as noted in HPI and below Constitutional Constitutional: Denies fever(s) Cardiovascular Cardiovascular: Denies chest pain and Denies dyspnea Respiratory Respiratory: Denies cough and Denies dyspnea Neurologic Neurologic: Reports as per HPI PFSH All Active Problems Contusion of hip, right (Acute) Fall (Acute) Acute UTI (Acute) Fall (Acute) Back pain (Acute) Hyperkalemia (Acute) Diabetes mellitus type 2 (Chronic) On Metformin Anemia (Chronic 05/03/13) Hemoglobin 8.2. 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 Leukocytosis. Intermittently febrile. Diverticulitis (Chronic) Recurrent. S/p high risk hemicolectomy in the setting of sepsis and hypotension 03/22/2013. Complication of a stomal leak resulting in an abdominal abscess. Readmitted to [facility] [place] 05/03/13 emergently with sepsis syndrome and had an abdominal abscess drained. Completed rehab at [facility] with discharge most recently on after extensive dressing care of the abdominal wound with a wound VAC. Hepatitis C (Chronic) Recent negative viral count. GERD (gastroesophageal reflux disease) (Chronic) Depression (Chronic) Vitamin D deficiency (Chronic) History of colostomy (Chronic) Medical History Anemia Depression Diabetes mellitus Essential hypertension Gastroesophageal reflux disease History of breast cancer History of hepatitis C History of incisional hernia History of renal failure Migraine Morbid obesity Osteopenia Vitamin D deficiency Surgical History Colectomy H/O mastectomy Hernia Repair, Incisional x2 S/P cholecystectomy Family History Mother No problems noted. Father No problems noted. Social History Smoking/Tobacco Use Status: Former Tobacco Use Smoking risk assessment performed?: Yes Alcohol Intake: never Drug use: Never Substance use type: does not use Do you feel safe at home: Yes Do you feel safe in your relationship?: Yes Exam Const General: cooperative and no acute distress Limitations: physical limitations (Body habitus) HENMT Mouth: moist mucous membranes Eyes Conjunctivae: normal conjunctivae Sclera: normal sclerae Neck Neck: trachea midline and supple Resp Effort & Inspection: tachypneic Auscultation: clear to auscultation bilaterally, no rales, no rhonchi and no wheezes Cardio Rate: regular rate and not tachycardic Rhythm: regular rhythm GI Palpation: soft, not firm, no guarding, no masses, not rigid and nontender Skin General skin exam: no rashes or lesions noted Neuro General: patient alert, patient awake and tone normal Cognition: abnormal cognition Speech: speech normal Motor: other (strength 4/5 bilateral LEs) Sensory Exam: no sensory deficits noted Extrem General: no edema Course Vital Signs Vital signs: Vital Signs Temperature 36.7 C 11/04/21 14:11 Pulse 120 H 11/04/21 14:11 Respiratory Rate 34 H 11/04/21 14:11 Blood Pressure 150/96 H 11/04/21 14:11 Pulse Oximetry 92 11/04/21 14:11 Temperature 36.7 C 11/04/21 14:11 Temperature Source Skin 11/04/21 14:11 Pulse 116 H 11/04/21 15:16 Pulse 118 H 11/04/21 15:20 Respiratory Rate 17 11/04/21 15:20 Respiratory Effort 11/04/21 14:55 Respiratory Depth Normal 11/04/21 14:55 Respiratory Pattern Normal 11/04/21 14:55 Blood Pressure 138/87 11/04/21 15:16 Blood Pressure Mean 100 11/04/21 15:16 Blood Pressure Position Sitting 11/04/21 14:11 Pulse Oximetry 99 11/04/21 15:20 Oxygen Delivery Method Room Air 11/04/21 14:11 Oxygen Flow Rate 0 11/04/21 14:11 Pain Level 0 11/04/21 14:11 Lab/Test Results Lab/Test Results: Laboratory Tests Range/Units 11/04/21 11/04/21 14:45 14:45 WBC (4.4-10.8) 10^3/uL 14.76 H RBC (3.93-5.22) 10^6/uL 4.61 Hgb (11.2-15.7) g/dL 11.6 Hct (36.0-46.0) % 38.8 MCV (80-95) fL 84.2 MCH (27.0-33.0) pg 25.2 L MCHC (32.0-36.0) % 29.9 L RDW (11.7-14.6) % 15.7 H Plt Count (130-400) 10^3/uL 175 MPV (8.0-11.0) fL 12.1 H Immature Gran % 0.7 Neutrophils % 82.1 Lymphocytes % 10.4 Monocytes % 4.5 Eosinophils % 1.8 Basophils % 0.5 Nucleated RBC % % 0 Absolute Neutrophils (1.2-6.7) 10^3/uL 12.12 H Absolute Lymphocytes (1.2-3.4) 10^3/uL 1.54 Absolute Monocytes (0.1-0.8) 10^3/uL 0.66 Absolute Eosinophils (0.0-0.7) 10^3/uL 0.27 Absolute Basophils (0.0-0.2) 10^3/uL 0.07 Sodium Cancelled Potassium Cancelled Chloride Cancelled Carbon Dioxide Cancelled Anion Gap Cancelled BUN Cancelled Creatinine Cancelled Estimated GFR/1.73 m2 Cancelled Glucose Cancelled Calcium Cancelled Total Bilirubin Cancelled AST Cancelled ALT Cancelled Alkaline Phosphatase Cancelled Total Protein Cancelled Albumin Cancelled
[2021-11-04 15:39] LABS: ALT 27 U/L (14-59); AST 43 U/L (15-37); Albumin 3.2 g/dL (3.4-5.0); Alkaline Phosphatase 95 U/L (46-116); Anion Gap 6.6 mmol/L (3-11); BUN 28 mg/dL (7-18); Bilirubin, Total 0.4 mg/dL (0.2-1.0); CO2 27.4 mmol/L (21.0-32.0); CREATININE 1.5 mg/dL (0.55-1.02); Calcium 10.4 mg/dL (8.5-10.1); Chloride 101 mmol/L (98-107); Estimated GFR 34.33 (mL/min/1.73m2); Glucose 355 mg/dL (74-106); Sodium 135 mmol/L (136-145); Total Protein 7.6 g/dL (6.4-8.2)
[2021-11-04 15:41] LABS: Potassium 6.1 mmol/L (3.5-5.1)
--- NOTE | 2021-11-04 15:45 | RT.EKG_ITS ---
APPROVED REPORT Exam: Resting ECG Reason for Exam: altered Patient Location: E HR:118 bpm ECG Measurements Heart Rate 118 AXIS OR 157 P 78 QRSd 76 QRS 51 QT 305 T 35 QTc 428 Conclusion Sinus tachycardia...rate> 99
[2021-11-04 16:10] LABS: Bilirubin Negative (Negative); Blood Small (Negative); Clarity Clear (Clear); Glucose 250 mg/dL (Negative); Ketones Trace mg/dL (Negative); Leukocyte Esterase Small (Negative); Nitrite Negative (Negative); Specific Gravity >= 1.030 (1.005-1.025); Urobilinogen 0.2 EU/dL (Up TO 0.2)
[2021-11-04 16:24] LABS: Bacteria Moderate HPF (Negative); C & S Indicated? No/Sq. Contamination; Casts Negative LPF (Negative); Crystals Negative HPF (Negative); Epithelial Cells Many HPF (Negative); Mucus Negative (Negative); RBC Negative HPF (0-2); WBC >50 HPF (0-5)
[2021-11-04] MEDS: Acetaminophen 325 MG TAB 650 MG PO (17:19)
[2021-11-04] MEDS: Lactated Ringers 500 ML IV ×2 (17:19→19:12)
--- NOTE | 2021-11-04 17:21 | DI.VRAD_ITS ---
PROCEDURE INFORMATION: Exam: CT Head Without Contrast Exam date and time: 11/04/2021 4:44 PM Age: 71 years old Clinical indication: Injury or trauma; Blunt trauma (contusions or hematomas); Patient HX: Fall, altered TECHNIQUE: Imaging protocol: Computed tomography of the head without contrast. COMPARISON: No relevant prior studies available. FINDINGS: Brain: No acute intracerebral abnormality or injury. No acute infarct or intracerebral bleed. Mild age-appropriate cerebral atrophy with minimal patchy periventricular leukomalacia in both cerebral hemispheres, consistent most likely with chronic underlying small vessel / microvascular ischemic disease. [place] Stroke Program Early CT Score (ASPECTS score) = 10, negative for acute intracerebral infarct. Cerebral ventricles: No ventriculomegaly. Paranasal sinuses: Visualized sinuses are unremarkable. No fluid levels. Mastoid air cells: Visualized mastoid air cells are well aerated. Bones/joints: Unremarkable. No acute fractures. Soft tissues: Unremarkable. IMPRESSION: 1. No acute intracerebral abnormality or injury. No acute infarct or intracerebral bleed. 2. Mild age-appropriate cerebral atrophy with minimal patchy periventricular leukomalacia in both cerebral hemispheres, consistent most likely with chronic underlying small vessel / microvascular ischemic disease. 3. [place] Stroke Program Early CT Score (ASPECTS score) = 10, negative for acute intracerebral infarct. Dictated and Authenticated by: Daniel Ordoñez MD. Ordering:DANIELLE Winn MD
[2021-11-04] MEDS: Omnipaque 350 MG/ML 100 ML BTL IJ (17:26)
--- NOTE | 2021-11-04 17:30 | DI.VRAD_ITS ---
PROCEDURE INFORMATION: Exam: CTA Chest With Contrast Exam date and time: 11/04/2021 4:50 PM Age: 71 years old Clinical indication: Injury or trauma; Generalized; Blunt trauma (contusions or hematomas); Prior surgery; Patient HX: Tachycardic, hypoxic, fall, mid back pain TECHNIQUE: Imaging protocol: Computed tomographic angiography of the chest with contrast. 3D rendering (Not supervised by radiologist): MIP and/or 3D reconstructed images were created by the technologist. Total images: 2720 COMPARISON: XR PELVIS AP 08/12/2020 20:47 FINDINGS: Pulmonary arteries: No main or lobar pulmonary arterial embolism. Limited evaluation of the segmental branches. Aorta: Atherosclerosis. No aortic aneurysm. Lungs: Unremarkable. No consolidation. No masses. Pleural spaces: Unremarkable. No pneumothorax. No pleural effusion. Heart: Unremarkable. No cardiomegaly. No pericardial effusion. Lymph nodes: Unremarkable. No enlarged lymph nodes. Bones/joints: Unremarkable. No acute fracture. Soft tissues: Unremarkable. Other findings: Images are degraded by patient respiratory motion artifact. IMPRESSION: No main or lobar pulmonary embolism. PROCEDURE INFORMATION: Exam: CT Abdomen And Pelvis With Contrast Exam date and time: 11/04/2021 4:50 PM Age: 71 years old Clinical indication: Injury or trauma; Generalized; Blunt trauma (contusions or hematomas); Prior surgery; Patient HX: Tachycardic, hypoxic, fall, mid back pain TECHNIQUE: Imaging protocol: Computed tomography of the abdomen and pelvis with contrast. COMPARISON: XR PELVIS AP 08/12/2020 20:47 FINDINGS: Liver: Normal. No mass. Gallbladder and bile ducts: The gallbladder is surgically absent. No intra or extrahepatic biliary ductal dilatation. Pancreas: Normal. No ductal dilation. Spleen: Normal. No splenomegaly. Adrenal glands: Normal. No mass. Kidneys and ureters: Normal. No hydronephrosis. Stomach and bowel: Unremarkable. No obstruction. No mucosal thickening. Appendix: No evidence of appendicitis. Intraperitoneal space: No free air. No significant fluid collection. Vasculature: Atherosclerosis. No abdominal aortic aneurysm. Lymph nodes: Unremarkable. No enlarged lymph nodes. Urinary bladder: The urinary bladder is decompressed by a Randle catheter. There is air in the urinary bladder likely secondary to recent instrumentation. Reproductive: There are heterogeneous masses in the uterus measuring up to 4 cm. There is a 3.7 cm right adnexal cyst. Bones/joints: Degenerative changes in the lumbar spine. No acute fracture. Soft tissues: There is an epigastric ventral hernia containing a loop of transverse colon. IMPRESSION: 1. No acute/traumatic abnormality in the abdomen or pelvis. 2. Right adnexal cyst 3.7 cm. Further evaluation with prompt non-emergent ultrasound or prompt non-emergent MRI is recommended to characterize. (Reference: Piter) 3. Multiple low-density uterine masses likely fibroids. REFERENCES: Piter et al. Management of Incidental Adnexal Findings on CT and MRI: A White Paper of the ACR Incidental Findings Committee, J Am Bryan Radiol. 2019;17(2):248-254. Dictated and Authenticated by: Abhay Carter MD. Ordering:DANIELLE Winn MD
--- NOTE | 2021-11-04 17:32 | DI.VRAD_ITS ---
PROCEDURE INFORMATION: Exam: CT Thoracic Spine Without Contrast Exam date and time: 11/04/2021 4:50 PM Age: 71 years old Clinical indication: Injury or trauma; Fall; Blunt trauma (contusions or hematomas); Patient HX: T/l recons; Trauma TECHNIQUE: Imaging protocol: Computed tomography images of the thoracic spine without contrast. Total images: 1811 COMPARISON: CT lumbar spine wo 08/15/2018 21:30 FINDINGS: Vertebrae: No acute fracture. Normal alignment. Discs/Spinal canal/Neural foramina: No spinal canal stenosis. No bony neural foraminal narrowing. Soft tissues: Unremarkable. IMPRESSION: No acute fracture. PROCEDURE INFORMATION: Exam: CT Lumbar Spine Without Contrast Exam date and time: 11/04/2021 4:50 PM Age: 71 years old Clinical indication: Injury or trauma; Fall; Blunt trauma (contusions or hematomas); Patient HX: T/l recons; Trauma TECHNIQUE: Imaging protocol: Computed tomography images of the lumbar spine without contrast. COMPARISON: CT lumbar spine wo 08/15/2018 21:30 FINDINGS: Vertebrae: No acute fracture. Normal alignment. Discs/Spinal canal/Neural foramina: No spinal canal stenosis. No bony neural foraminal narrowing. Soft tissues: Unremarkable. IMPRESSION: No acute fracture. Dictated and Authenticated by: Abhay Carter MD. Ordering:DANIELLE Winn MD
[2021-11-04] MEDS: levoFLOXacin 750 MG/150 ML BAG 100 MG IVPB (18:18)
[2021-11-04 18:26] LABS: Source Nasal/Nares
[2021-11-04] MEDS: Sodium Zirconium Cyclosilicate 10 GM PKT PO (18:37)
[2021-11-04 19:16] LABS: Bilirubin Negative (Negative); Blood Moderate (Negative); Clarity Cloudy (Clear); Glucose Negative (Negative); Ketones Negative (Negative); Leukocyte Esterase Small (Negative); Nitrite Negative (Negative); Urobilinogen 0.2 EU/dL (Up TO 0.2); pH 5.5 (5-8)
[2021-11-04 19:30] LABS: Lactate 1.9 mmol/L (0.6-1.4)
[2021-11-04 19:38] LABS: Bacteria Negative HPF (Negative); C & S Indicated? Yes; Casts Negative LPF (Negative); Crystals Negative HPF (Negative); Epithelial Cells Few HPF (Negative); Mucus Negative (Negative); Other Cells Negative (Negative); RBC Negative HPF (0-2); WBC >50 HPF (0-5)
--- NOTE | 2021-11-04 21:25 | HPE_ITS ---
Date of service: 11/04/21 Time of Service: 21:26 Assessment and Plan Assessment and plan (1) Acute UTI: Status: Acute Assessment and plan: Patient's first urinalysis was suspicious for UTI with moderate bacteria with many white cells and positive leukocyte Estrace however repeat urinalysis does not look quite so suspicious she still has a small amount leukocyte esterase and greater than 50 white cells but was negative for bacteria. Patient will be treated presumptively for UTI she was initially started on Levaquin 750 mg daily however because of her chronic kidney disease-changing over to Rocephin 1 g IV daily. She does have a penicillin allergy but does not have anaphylactic reaction to penicillin she just develops a fever and rash. Urine culture has been sent the patient already got a dose of Levaquin before the urine culture was sent. Blood cultures were also obtained after antibiotics were started. CT scan of the abdomen pelvis did not show any hydronephrosis or renal abscess or kidney stones. If her urine culture does not show culprit for her leukocytosis then in light of her abdominal pain I would reevaluate her abdomen with another CT scan or obtain a surgical consult in the morning. I rechecked her lactate tonight and it appears to be not rising at 2.0. I will repeat lactate level in the morning. Lipase was negative. Abdominal pain seems to be responding to Tyl enol. Not clearly his whether this was abdominal cramping whether she has some impending GI problem developing. Nevertheless her first CAT scan was done with contrast and did not show any evidence of mesenteric inflammation there was no evidence for abdominal aortic aneurysm there is no sign of mesenteric ischemia. (2) Sinus tachycardia: Status: Acute Assessment and plan: Secondary to dehydration and pain and infection. [id number] echo shows an underfilled RV and a small IVC with greater than 50% inspiratory collapse of the IVC which suggest low right atrial pressures. LV appears to be sveta well with no wall motion abnormalities. I will continue to hydrate her tonight and treat her pain and treat her for presumptive UTI. (3) Dehydration: Status: Acute Assessment and plan: IV hydration as above. She received a liter of LR in the emergency department in the form of two 500 mL boluses.I have ordered an additional 1000 mL over the next 2 hours and then decrease her IV rate down to 150 mL an hour. (4) Metabolic encephalopathy: Status: Acute Assessment and plan: Patient seems to be somewhat confused in that she could not answer her date when asked this by the nurse doing her EKG and she was vague on details regarding her PMH such as when she had her mastectomy, but she knew she is in [facility]. Her CT of her head was negative for acute changes and she has no focal neuro findings. Will treat her dehydration and infection and see how she responds (5) Chronic kidney disease: Status: Chronic (6) Fall: Status: Acute (7) Back pain: Status: Acute Assessment and plan: We will treat with Tylenol and Robaxin and prn low dose dilaudid for pain not controlled by APAP and muscle relaxers. Will consult physical therapy to evaluate and treat. I have also ordered prn dilaudid for severe back pain that is not controlled by APAP or Robaxin. If she continues to experience low back pain then she may need MRI of her spine to rule infection/occult frx not seen on CT. Note CT was only obtained of her thoracic spine. (8) Hyperkalemia: Status: Acute Assessment and plan: treated w/ Lokelma. Note she has reacted to kayexalate w/ dyspnea and t achycardia and rash. I wonder if her abdominal pain and dyspnea may be secondary to the Lokelma. In anycase she is better now and her potassium is now below 6 (now 5.7). I will recheck levels in the a.m. and not give any more Lokelma (9) Diabetes mellitus type 2: Status: Chronic Assessment and plan: dc glyburide but continue her Lantus and use sliding scale Novolog along w/ carb coverage. check glycohemoglobin a1c (10) Anemia: Status: Chronic Assessment and plan: stable. no workup planned as inpatient unless she shows signs of acute drop/bleeding. stool ordered for occult blood. (11) GERD (gastroesophageal reflux disease): Status: Chronic Assessment and plan: continue her nexium (taking 40 mg bid which is double the usual dose. She should only be on 40 mg once daily unless she has esophageal ulcers. (12) DVT prophylaxis: Status: Acute Assessment and plan: heparin 5000 units SC q8h History of Present Illness History of Present Illness Chief Complaint: fell, abdominal pain, back pain Narrative: 71 yr. 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 mastectomy who lives at home alone and fell getting out of her rocking chair and landed forward onto a storeage chest. She presented to the ER via EMS as she was unable to get up on her own and complaining of mid back pain and had antecedent dizziness but no chest pain or dyspnea and no loss of consciousness. She did have nausea and episode of vomiting. She was medicated by EMS w/ zofran and fentanyl 100 mcg. Upon arrival to the ED she was tachycardic (120 bpm), hypertensive (150/96), tachypneic (RR 34), afebrile 36.7 C, and not hypoxemic (SPO2 92% on room air). She was worked up for PE w/ CTA of the chest (neg. for PE, pneumonia or TAA) and had CT of abdomen and pelvis and had reconstruction images of her thoracic spin e. No sinal fractures or spinal stenosis or neural foraminal narrowing or subluxation was seen. CT of the abdomen and pelvis demonstrated 2.9 cm x 2.3 cm calcified mass in the left lobe of the liver, s/p cholecystectomy, 1.1 cm simple cyst superior pole left kidney but otherwise no nephrolithiasis, renal abscess or pyelonephritis nor any hydronephrosis. Spleen, adrenals, pancreas, biliary tree all normal. Bowels, right lower quadrant colostomy w/ no inflammatory changes of her remaining bowels (s/p near total colectomy). No ascites or mesenteric inflammation. No abdominal or pelvic adenopathy. No AAA. Cystic lesions in right and left pelvic adnexa and 4.2 cm x 2.6 cm hypodense area in the uterus suggestive of uterine fibroid vs myometrial mass. Noncontrast CT scan of the head showed no acute intracranial process. Her labs were indicative of an acute inflammatory or infectious process w/ WBC 14,700 w/ left shift, stable chronic anemia Hb 11.6 gm, lactate 1.9, hyperkalemia 6.1, CKD w/ BUN 27 and creatinine 1.5 (baseline 1.5 to 1.6); LFT unremarkable (AST 43 otherwise rest were normal including bilirubin). Her UA was remarkable for S.G. >1.030, 30 mg/dL protein, trace ketones, small blood, small leukocyte esterase, neg. nitrites, >50 WBC and mod. bacteria but many epithelial cells (this on a allegedly catheterized specimen). EKG demonstrated sinus tachycardia @ 118 bpm but without ischemia or hyperacute T wave changes. Patient was given Levaquin 750 mg IV for presumed UTI/possible urosepsis; and she was given a bolus of LR x 500 mL x 2 doses total of 1 liter. Patient remain ed tachycardic after the fluid boluses. She was given a dose of Lokelma in the ED for her hyperkalemia. She is admitted to the med/surg for treatment of UTI; possible urosepsis, dehydration and acute fall w/ low back pain w/out evidence for fracture. After arriving to the floor she was complaining of acute abdominal pains w/out vomiting and dyspnea but no chest pains/pressure. At first she pointed to her epigastrium but then later changed the position of her abdominal pains to the peristomal area. She has been forming stools in her ostomy of light brown nature. Her ostomy was emptied when she arrived on the floor and her bag was filling up again w/ light brown soft semiformed stool (consistency of cow pies). Patient denies any dysuria or hematuria or fevers or rigors at home. However she is poor historian as she can not tell me specifics about her breast cancer treatment or how long ago her mastectomy was. At first she had problem giving the candlemaking laborer her date. Repeat EKG was done d/t her complaints of dyspnea and epigastric pain. no acute ischemia was seen on her repeat EKG. Stat labs including troponin I level and BNP along w/ lipase and repeat lactate was ordered along w/ a follow up BMP. BMP demonstrated potassium is down to 5.5. BUN and creatinine remain the same at 27 and 1.5. Troponin I <50 ng/L and BNP is normal at 160. Repeat lactate is 2.0. Lipase is normal at 30 and procalcitonin is pending. Patient was treated w/ acetaminophen and dilaudid. POCUS of her abomen was down and no free fluid was seen around her right heaptorenal recess and none was seen around her left splenorenal recess. No hydronephrosis was seen. Limited echo was done and her LV appeared to be normal size w/ normal wall motion (EF was not calculated d/t not able to get good apical 4 chamber and 2 chamber view to perform Tatum biplane); IVC was () and the IVC collapses greater than 50% w/ inspiration. RV function appeared normal but RV appeared to be underfilled. Patient will continue w/ aggressive fluid hydration and parenteral antibiotics. Review of Systems All systems reviewed & are unremarkable except as noted in HPI and below PFSH All Active Problems Metabolic encephalopathy (Acute) DVT prophylaxis (Acute) Chronic kidney disease (Chronic) Sinus tachycardia (Acute) Dehydration (Acute) Fall (Acute) Acute UTI (Acute) Fall (Acute) Back pain (Acute) Hyperkalemia (Acute) Diabetes mellitus type 2 (Chronic) On Metformin Anemia (Chronic 05/03/13) Hemoglobin 8.2. 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 Leukocytosis. Intermittently febrile. Diverticulitis (Chronic) Recurrent. S/p high risk hemicolectomy in the setting of sepsis and hypotension 03/22/2013. Complication of a stomal leak resulting in an abdominal abscess. Readmitted to [facility] 05/03/13 emergently with sepsis syndrome and had an abdominal abscess drained. Completed rehab at [facility] with discharge most recently on after extensive dressing care of the abdominal wound with a wound VAC. Hepatitis C (Chronic) Recent negative viral count. GERD (gastroesophageal reflux disease) (Chronic) Depression (Chronic) Vitamin D deficiency (Chronic) History of colostomy (Chronic) Medical History Anemia Depression Diabetes mellitus Essential hypertension Gastroesophageal reflux disease History of breast cancer History of hepatitis C History of incisional hernia History of renal failure Migraine Morbid obesity Osteopenia Vitamin D deficiency Surgical History Colectomy H/O mastectomy Hernia Repair, Incisional x2 S/P cholecystectomy Family History Mother No problems noted. Father No problems noted. Social History (Reviewed 11/04/21 @ 23:40 by Fabián Perez Smoking/Tobacco Use Status: Former Tobacco Use Smoking risk assessment performed?: Yes Alcohol Intake: never Drug use: Never Substance use type: does not use Do you feel safe at home: Yes Do you feel safe in your relationship?: Yes Meds Allergies and Home Medications Allergies Allergy/AdvReac Type Severity Reaction Status Date / Time epinephrine Allergy Severe chest Unverified 12/08/20 20:23 pain/heart attack Penicillins Allergy Intermediate rsh fever Unverified 12/08/20 20:23 banana [Banana] Allergy Unverified 12/08/20 20:23 NSAIDS (Non-Steroidal Allergy unkown Unverified 12/08/20 20:23 Anti-Inflamma Sulfa (Sulfonamide Allergy rash,fever Unverified 12/08/20 20:23 Antibiotics) Tetracyclines Allergy rash fever Unverified 12/08/20 20:23 sodium polystyrene sulfonate AdvReac Severe tachy/dyspn Unverified 12/08/20 20:23 [From Kayexalate] ea/rash Niacin Preparations AdvReac Intermediate flushing Unverified 12/08/20 20:23 Home Medications Medication Instructions Recorded Confirmed Type esomeprazole magnesium 40 mg 40 mg PO BID 05/03/13 11/04/21 History capsule,delayed release (Nexium) calcium carbonate 600 mg-vitamin 1 ea PO DAILY 05/10/13 11/04/21 History D3 10 mcg (400 unit) tablet (Calcium 600 + D(3)) simvastatin 40 mg tablet (Zocor) 40 mg PO HS 05/10/13 11/04/21 History venlafaxine 75 mg capsule,extended 150 mg PO DAILY 05/10/13 11/04/21 History release 24 hr (Effexor XR) ergocalciferol (vitamin D2) 50 mcg 2,000 unit PO DAILY 06/18/13 11/04/21 History (2,000 unit) tablet lisinopril 10 mg tablet 10 mg PO DAILY 06/18/13 11/04/21 History gabapentin 300 mg capsule 300 mg PO TID 05/30/14 11/04/21 History (Neurontin) glyburide 5 mg tablet (Diabeta) 5 mg PO BID 05/30/14 11/04/21 History tramadol 50 mg tablet 100 mg PO BID PRN 05/30/14 11/04/21 History insulin lispro 100 unit/mL 5 unit SUBCUT QAC 09/14/18 11/04/21 History subcutaneous pen (Humalog KwikPen (U-100) Insulin) magnesium oxide 400 mg PO BID #30 cap 09/14/18 11/04/21 Rx albuterol sulfate 90 mcg/actuation 2 puff INHALATION Q6H 12/08/20 11/04/21 History aerosol inhaler (Ventolin HFA) aspirin 81 mg tablet 81 mg PO DAILY 12/08/20 11/04/21 History insulin glargine 100 unit/mL (3 56 unit SUBCUT BID 12/08/20 11/04/21 History mL) subcutaneous pen (Lantus Solostar U-100 Insulin) Exam Narrative Exam Narrative: Morbidly obese female lying in bed in semisolid position in obvious discomfort. She is alert and oriented to person place circumstance. I did not ask about date or time HEENT is unremarkable Neck is obese difficult to discern any JVD but she has no obvious distention of her neck veins. Carotid pulses are tachycardic without bruits Lungs are clear to auscultation anteriorly and posteriorly Heart is tachycardic but regular with no appreciable murmur rub Abdomen is obese with scattered bowel sounds. Colostomy in the right lower quadrant has light brown semiformed stool in the colostomy bag. Patient has some mild epigastric tenderness but no rebound tenderness. She is also tender just above the colostomy. Lower extremities are morbidly obese with nonpitting edema over the legs but no edema of her feet or ankles. Pedal pulses are intact there is no peripheral cyanosis of her hands or feet. Neuro exam motor exam is grossly intact moves all 4 extremities well with good range of motion and strength sensory exam intact to light touch however fine touch and vibratory sense and temperature were not tested. Results Imaging Imaging Studies: POCUS limited exam of abdomen was done and no hydronephrosis and no free fluid was seen in the hepatorenal or splenorenal space. Limited POCUS cardiac exam included PLAX and PSAX and subcostal views. RV and IVC appeared to be underfi lled and RV and LV function appeared to be grossly normal. Labs Result diagrams: 11/05/21 06:42 11/05/21 06:42 Labs: Laboratory Results - last 24 hr 03/11/04/21 11/04/21 14:45 14:45 15:20 WBC 14.76 H RBC 4.61 Hgb 11.6 Hct 38.8 MCV 84.2 MCH 25.2 L MCHC 29.9 L RDW 15.7 H Plt Count 175 MPV 12.1 H Immature Gran % 0.7 Neutrophils % 82.1 Lymphocytes % 10.4 Monocytes % 4.5 Eosinophils % 1.8 Basophils % 0.5 Nucleated RBC % 0 Absolute Neutrophils 12.12 H Absolute Lymphocytes 1.54 Absolute Monocytes 0.66 Absolute Eosinophils 0.27 Absolute Basophils 0.07 VBG Lactate Sodium Cancelled 135 L Potassium Cancelled 6.1 H* Chloride Cancelled 101 Carbon Dioxide Cancelled 27.4 Anion Gap Cancelled 6.6 BUN Cancelled 28 H Creatinine Cancelled 1.5 H Estimated GFR/1.73 m2 Cancelled 34.33 Glucose Cancelled 355 H Calcium Cancelled 10.4 H Total Bilirubin Cancelled 0.4 AST Cancelled 43 H ALT Cancelled 27 Alkaline Phosphatase Cancelled 95 Total Protein Cancelled 7.6 Albumin Cancelled 3.2 L Urine Color Urine Clarity Urine pH Ur Specific [place] Urine Protein Urine Ketones Urine Blood Urine Nitrite Urine Bilirubin Urine Urobilinogen Ur Leukocyte Esterase Urine RBC Urine WBC Ur Epithelial Cells Urine Crystals Urine Bacteria Urine Casts Urine Mucus Urine Other Ur Culture Indicated? Urine Glucose COVID-19 Source 11/04/21 11/04/21 11/04/21 16:00 18:25 18:39 WBC RBC Hgb Hct MCV MCH MCHC RDW Plt Count MPV Immature Gran % Neutrophils % Lymphocytes % Monocytes % Eosinophils % Basophils % Nucleated RBC % Absolute Neutrophils Absolute Lymphocytes Absolute Monocytes Absolute Eosinophils Absolute Basophils VBG Lactate Sodium Potassium Chloride Carbon Dioxide Anion Gap BUN Creatinine Estimated GFR/1.73 m2 Glucose Calcium Total Bilirubin AST ALT Alkaline Phosphatase Total Protein Albumin Urine Color Yellow Yellow Urine Clarity Clear Cloudy Urine pH 5.0 5.5 Ur Specific [place] >= 1.030 H 1.010 Urine Protein 30 H Trace H Urine Ketones Trace H Negative Urine Blood Small H Moderate H Urine Nitrite Negative Negative Urine Bilirubin Negative Negative Urine Urobilinogen 0.2 0.2 Ur Leukocyte Esterase Small H Small H Urine RBC Negative Negative Urine WBC >50 H >50 H Ur Epithelial Cells Many Few Urine Crystals Negative Negative Urine Bacteria Moderate Negative Urine Casts Negative Negative Urine Mucus Negative Negative Urine Other Negative Ur Culture Indicated? No/Sq. Contamination Yes Urine Glucose 250 H Negative COVID-19 Source Nasal/Nares 11/04/21 19:15 WBC RBC Hgb Hct MCV MCH MCHC RDW Plt Count MPV Immature Gran % Neutrophils % Lymphocytes % Monocytes % Eosinophils % Basophils % Nucleated RBC % Absolute Neutrophils Absolute Lymphocytes Absolute Monocytes Absolute Eosinophils Absolute Basophils VBG Lactate 1.9 H Sodium Potassium Chloride Carbon Dioxide Anion Gap BUN Creatinine Estimated GFR/1.73 m2 Glucose Calcium Total Bilirubin AST ALT Alkaline Phosphatase Total Protein Albumin Urine Color Urine Clarity Urine pH Ur Specific [place] Urine Protein Urine Ketones Urine Blood Urine Nitrite Urine Bilirubin Urine Urobilinogen Ur Leukocyte Esterase Urine RBC Urine WBC Ur Epithelial Cells Urine Crystals Urine Bacteria Urine Casts Urine Mucus Urine Other Ur Culture Indicated? Urine Glucose COVID-19 Source Last Vital Signs Temp 36.7 C 11/04/21 19:58 Pulse 117 H 11/04/21 20:05 Resp 18 11/04/21 19:58 BP 142/84 H 11/04/21 19:58 Pulse Ox 94 11/04/21 19:58
--- NOTE | 2021-11-04 21:30 | RT.EKG_ITS ---
APPROVED REPORT Exam: Resting ECG Reason for Exam: chest pain, dyspnea Patient Location: I HR:116 bpm ECG Measurements Heart Rate 116 AXIS IN 142 P 76 QRSd 79 QRS 37 QT 319 T 34 QTc 444 Conclusion Sinus tachycardia...rate> 99 Low voltage, precordial leads...precordial leads <1.0mV Borderline T wave abnormalities...T/QRS ratio < 1/20 or flat T
[2021-11-04 22:02] LABS: COVID-19 PCR Negative (Negative)
[2021-11-04] MEDS: Normal Saline 1,000 ML 500 ML IV (22:04)
[2021-11-04] MEDS: Normal Saline Flush 10 ML SYR IVP (22:06)
[2021-11-04] MEDS: Esomeprazole 40 MG CAPCR PO (22:34)
[2021-11-04] MEDS: Simvastatin 40 MG TAB PO (22:34)
[2021-11-04] MEDS: Gabapentin 300 MG CAP PO (22:34)
[2021-11-04] MEDS: Insulin Glargine 300 UNITS/3 ML PEN 56 UNITS SC (22:35)
[2021-11-04] MEDS: Heparin 5,000 UNITS/ML VIAL 5000 UNITS SC (22:35)
[2021-11-04] MEDS: Insulin Aspart 300 UNITS/3 ML PEN SC (22:37)
[2021-11-04 22:40] LABS: Anion Gap 4.9 mmol/L (3-11); BUN 27 mg/dL (7-18); CO2 29.1 mmol/L (21.0-32.0); CREATININE 1.5 mg/dL (0.55-1.02); Calcium 10.1 mg/dL (8.5-10.1); Chloride 102 mmol/L (98-107); Estimated GFR 34.33 (mL/min/1.73m2); Glucose 261 mg/dL (74-106); Potassium 5.5 mmol/L (3.5-5.1); Sodium 136 mmol/L (136-145)
[2021-11-04 22:42] LABS: Lipase 30 U/L (73-393)
[2021-11-04 22:52] LABS: NT-proBNP 160 pg/mL (<300); Troponin I < 50 ng/L (<or=60)
[2021-11-04] MEDS: Acetaminophen 500 MG TAB 1000 MG PO (23:22)
[2021-11-04] MEDS: HYDROmorphone 2 MG/ML SYR 0.5 MG IVP (23:23)
[2021-11-04 23:44] LABS: Lab Add On Test DONE
[2021-11-04 23:56] LABS: Creatine Kinase 18 U/L (26-192)
[2021-11-05] VITALS (11 sets, daily range): BP systolic 105–160; BP diastolic 54–84; PULSE 97–113; RESP 16–22; TEMP 36.1–36.9; O2SAT 87–98
[2021-11-05] MEDS: Pantoprazole 40 MG VIAL IVP (00:20)
[2021-11-05] MEDS: Normal Saline 1,000 ML 150 ML IV ×3 (00:20→15:10)
[2021-11-05] MEDS: Normal Saline Flush 10 ML SYR IVP ×2 (00:26→20:32)
[2021-11-05 00:53] LABS: Troponin I < 50 ng/L (<or=60)
[2021-11-05 01:55] LABS: Procalcitonin 0.2 ng/mL
[2021-11-05] MEDS: Heparin 5,000 UNITS/ML VIAL 5000 UNITS SC ×3 (06:08→22:33)
[2021-11-05] MEDS: cefTRIAXone 1,000 MG in Normal Saline 50 ML 100 MG IVPB (06:08)
[2021-11-05 06:51] LABS: Lactate 0.9 mmol/L (0.6-1.4)
[2021-11-05 06:56] LABS: Abs Immature Grans 0.07 10^3/uL (0.0-0.06); Absolute Basophil Count 0.06 10^3/uL (0.0-0.2); Absolute Eosinophil Count 0.29 10^3/uL (0.0-0.7); Absolute Lymphocyte Count 2.31 10^3/uL (1.2-3.4); Absolute Monocyte Count 0.77 10^3/uL (0.1-0.8); Absolute Neutrophil Count 7.19 10^3/uL (1.2-6.7); Basophils % 0.6; Eosinophils % 2.7; HCT 35.7 % (36.0-46.0); HGB 10.3 g/dL (11.2-15.7); Immature Grans % 0.7; Lymphocytes % 21.6; MCHC 28.9 % (32.0-36.0); MCV 86.7 fL (80-95); MPV 9.9 fL (8.0-11.0); Monocytes % 7.2; Neutrophils % 67.2; Nucleated RBC 0 %; Platelet Count 167 10^3/uL (130-400); RBC 4.12 10^6/uL (3.93-5.22); RDW 15.3 % (11.7-14.6); RDW-SD 48.2 fL; WBC 10.69 10^3/uL (4.4-10.8)
[2021-11-05 07:17] LABS: Hemoglobin A1C 8.9 % (<5.7)
[2021-11-05 07:20] LABS: ALT 21 U/L (14-59); AST 31 U/L (15-37); Albumin 2.7 g/dL (3.4-5.0); Alkaline Phosphatase 80 U/L (46-116); Anion Gap 8.7 mmol/L (3-11); BUN 25 mg/dL (7-18); Bilirubin, Total 0.2 mg/dL (0.2-1.0); C-Reactive Protein 2.75 mg/dL (0.0-0.3); CO2 24.3 mmol/L (21.0-32.0); CREATININE 1.4 mg/dL (0.55-1.02); Calcium 9.2 mg/dL (8.5-10.1); Chloride 107 mmol/L (98-107); Estimated GFR 37.18 (mL/min/1.73m2); Glucose 146 mg/dL (74-106); Potassium 4.3 mmol/L (3.5-5.1); Sodium 140 mmol/L (136-145); Total Protein 6.7 g/dL (6.4-8.2)
[2021-11-05] MEDS: Esomeprazole 40 MG CAPCR PO (07:59)
[2021-11-05] MEDS: Lactobacillus Acidophilus CAP 1 CAP PO ×2 (07:59→20:32)
[2021-11-05] MEDS: Methocarbamol 750 MG TAB PO ×4 (07:59→20:32)
[2021-11-05] MEDS: Cholecalciferol (Vitamin D3) 1,000 UNIT TAB 2000 UNITS PO (07:59)
[2021-11-05] MEDS: Aspirin 81 MG CHEW PO (07:59)
[2021-11-05] MEDS: Insulin Glargine 300 UNITS/3 ML PEN 56 UNITS SC ×2 (08:01→20:49)
[2021-11-05] MEDS: Gabapentin 300 MG CAP PO ×2 (08:01→13:43)
[2021-11-05] MEDS: Venlafaxine 150 MG CAPCR PO (08:01)
[2021-11-05] MEDS: Calcium 600mg/Vit D 200U TAB 1 TAB PO (08:01)
[2021-11-05] MEDS: Insulin Aspart 300 UNITS/3 ML PEN SC ×7 (08:04→22:32)
--- NOTE | 2021-11-05 09:50 | PHA.REVIEW ---
Pharmacy Admission Review - Admission Clinical Review (Last Reviewed 11/04/21 @ 23:40 by Fabián De Guzman) Metabolic encephalopathy (Acute) DVT prophylaxis (Acute) Sinus tachycardia (Acute) Dehydration (Acute) Fall (Acute) Acute UTI (Acute) Fall (Acute) Back pain (Acute) Hyperkalemia (Acute) epinephrine Allergy (Severe, Unverified 12/08/20 20:23) chest pain/heart attack Penicillins Allergy (Intermediate, Unverified 12/08/20 20:23) rsh fever banana [Banana] Allergy (Unverified 12/08/20 20:23) NSAIDS (Non-Steroidal Anti-Inflamma Allergy (Unverified 12/08/20 20:23) unkown Sulfa (Sulfonamide Antibiotics) Allergy (Unverified 12/08/20 20:23) rash,fever Tetracyclines Allergy (Unverified 12/08/20 20:23) rash fever sodium polystyrene sulfonate [From Kayexalate] Adverse Reaction (Severe, Unverified 12/08/20 20:23) tachy/dyspnea/rash Niacin Preparations Adverse Reaction (Intermediate, Unverified 12/08/20 20:23) flushing Resuscitation Status Full Code Height 5 ft 2 in Weight 133.4 kg - Renal Dosing Renal Dosing: BUN 25 mg/dL (7-18) H 11/05/21 06:42 Creatinine 1.4 mg/dL (0.55-1.02) H 11/05/21 06:42 Medications needing adjustments: Reviewed (SCr: 1.4, eCrCl: 49.2mL/min (using adjusted body weight). All medications dosed appropriately.) - Anticoagulation Anticoagulation: Hgb 10.3 g/dL (11.2-15.7) L 11/05/21 06:42 Hct 35.7 % (36.0-46.0) L 11/05/21 06:42 Plt Count 167 10^3/uL (130-400) 11/05/21 06:42 Creatinine 1.4 mg/dL (0.55-1.02) H 11/05/21 06:42 DVT Prophylaxis: Reviewed Medications: Heparin - Opiate Usage Evaluate Pain Scale/Pains Meds: Reviewed (Pain scale ratings: 0. Has not received any opiates since ED.) Scheduled Bowel Reg ordered if on Opiates?: No (PRN Miralax and Docusate ) - Relevant Labs Sodium 140 mmol/L (136-145) 11/05/21 06:42 Potassium 4.3 mmol/L (3.5-5.1) D 11/05/21 06:42 Chloride 107 mmol/L (98-107) 11/05/21 06:42 C-Reactive Protein 2.75 mg/dL (0.0-0.3) H 11/05/21 06:42 Electrolytes, C-Reactive P, ESR: Reviewed - DM Control DM Control: Glucose 146 mg/dL (74-106) H D 11/05/21 06:42 Hemoglobin A1c 8.9 % (<5.7) H 11/05/21 06:42 Finger Stick Blood Glucose 155 Finger Stick Blood Glucose 155 Insulin Dosing: Reviewed (Blood glucose elevated. Insulin glargine 56 units BID (home med) and insulin aspart SS ordered.) - Heart Failure/NV Heart Failure/NV: Troponin I < 50 ng/L (<or=60) 11/05/21 00:25 NT-Pro-B Natriuret Pep 160 pg/mL (<300) 11/04/21 22:14 EF%, MIRNA's, B-Blockers, Diuretics: N/A - BP Control BP Control: Blood Pressure 117/70 Blood Pressure 124/75 Blood Pressure 126/79 If elevated: Reviewed (Blood pressure within normal limits.) - Qtc Review If Elevated: N/A (QTc 428 on admission.) - IV to PO Switch IV Medications: Reviewed - Home Meds Home Med List reviewed: Intervened Relevent Home Meds Not ordered & why?: Not ordered: Duloxetine 60mg BID (Venlafaxine currently ordered), Pregabalin 50mg TID (gabapentin currently ordered), Glipizide held (insulin glargine and insulin aspart ordered while inpatient). - Current meds Current Medication Order Review: Reviewed - Comments Comments/Follow Ups: Continue to monitor vitals, labs and for medication changes.
--- NOTE | 2021-11-05 10:40 | IN_ITS ---
Date of service: 11/05/21 Time of Service: 10:40 PT Notes Visit Reasons: Urosepsis, Fall Physical Therapy Inpatient Initial Evaluation Date: 11/05/2021 Referring Doctor: Fabián Castro MD PT Orders: PT CONSULT: Fall safety assessment Precautions: Fall. Standard. Activity as tolerated. Patient Profile/Admitting Diagnosis: Raven is a 71-year-old female who presented to the ED on 11/04/2021 via EMS due to a fall during an attempt to stand up from her rocking chair, low back pain, and dizziness. Patient is diagnosed with metabolic encephalopathy, dehydration, urinary tract infection, sinus tachycardia, low back pain and hyperlipidemia. PMHX: All Active Problems? 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 Leukocytosis.? Intermittently febrile. Diverticulitis (Chronic) Recurrent? S/p high risk hemicolectomy in the setting of sepsis and hypotension 03/22/2013. Complication of a stomal leak resulting in an abdominal abscess.? Readmitted to [facility] [place] 05/03/13 emergently with sepsis syndrome and had an abdominal abscess drained. ? Completed rehab at [facility] with discharge most recently on after extensive dressing care of the abdominal wound with a wound VAC.Hepatitis C (Chronic) Recent negative viral count.GERD (gastroesophageal reflux disease) (Chronic) Depression (Chronic) Vitamin D deficiency (Chronic) History of colostomy (Chronic) Medical History? Anemia Depression Diabetes mellitus Essential hypertension Gastroesophageal reflux disease History of breast cancer History of hepatitis C History of incisional hernia History of renal failure Migraine Morbid obesity Osteopenia Vitamin D deficiency Surgical History? Colectomy H/O mastectomy Hernia Repair, Incisional x2S/P cholecystectomy Social History/Home Situation: Lives with significant other in a mobile home wit h a ramp to enter as well as 3 steps to enter. Requires assistance for all significant other for all transfers using walker. Short distance ambulation only prior to admission. Equipment Owned/DME: Front-wheeled walker, wheelchair Subjective: Agreeable to PT consult. Complains of back pain at rest and is aggravated by activity as well as weight bearing. States that she has had 3 falls in the past year. Objective: General Observation:Supine in bed. Colostomy bag in place. High BMI. Randle catheter in place. Mental Status: Alert and oriented as to person, place, time, and purpose. Able to pay attention, focus, and respond appropriately. Pain: 5-6/10 in back Vital Signs: Within normal limits as closely monitored by nursing staff ROM: Right Upper Extremity: Shoulder Flexion lacks 50% of AROM. Shoulder abduction lacks 50% of AROM. Elbow flexion WFL. Wrist flexion WFL. Functional opening and closing of hand WFL. Left Upper Extremity: Shoulder Flexion lacks 50% of AROM. Shoulder abduction lacks 50% of AROM. Elbow flexion WFL. Wrist flexion WFL. Functional opening and closing of hand WFL. Right Lower Extremity: Hip flexion unable beyond 90 while seated at edge of bed Hip abduction 10 degrees. Knee flexion 0 to 90 degrees. Ankle dorsiflexion to neutral only. Ankle plantarflexion WFL. Left Lower Extremity: Hip flexion unable beyond 90 while seated at edge of bed Hip abduction 10 degrees. Knee flexion 0 to 90 degrees. Ankle dorsiflexion to neutral only. Ankle plantarflexion WFL. Strength: Right Upper Extremity: Shoulder flexors 3-/5. Shoulder abductors 3-/5. Elbow flexors 3-/5. Elbow extensors 3-/5. Senior Premium Auditor strong. Left Upper Extremity: Shoulder flexors 3-/5. Shoulder abductors 3-/5. Elbow flexors 3-/5. Elbow extensors 3-/5. Senior Premium Auditor strong. Right Lower Extremity: Hip flexors 3-/5. Hip abductors 3-/5. Knee flexors 3-/5. Knee extensor 3-/5. Ankle dorsiflexors 3-/5. Ankle plantarflexors 4-/5. Left Lower Extremity: Hip flexors 3-/5. Hip abductors 3-/5. Knee flexors 3-/5. Knee extensor 3-/5. Ankle dorsiflexors 3-/5. Ankle plantarflexors 4-/5. Bed Mobility/Transfers: Rolling with moderate assist of 2 with cues for safe/correct technique Supine to sit with moderate assist of 2 with cues for safe/correct technique Sit to stand with minimal assist of 2 with minimal cues for safe/correct technique Stand to sit with contact-guard assist with minimal cues for safe/correct technique Bed to reclining chair with minimal assist of 2 with minimalcues for safe/correct technique Gait: 8 small hesitant steps using bariatric front wheeled walker with full weightbearing on BLE requiring minimal assist of 2. Patient complains of fatigue and weakness in BLE as well as mild shortness of breath. Patient also complained of mild dizziness. Base of support wide but with no loss of balance seen. Decreased alexis. Balance: Static Sitting: Fair Dynamic Sitting: Fair Static Standing: Fair Dynamic Standing: Poor Special Tests: Mobility Limitations Standardized Measure [facility] AM-PAC 6 clicks Basic Mobility Inpatient Short Form: Raw Score: 12 CMS Score: 69% deficit Informed Consent/Education: Patient was instructed in purpose of PT consult and plan of care. Agreeable to proceed with established PT POC to achieve personal goals. Assessment: Ambulatory dysfunction, limited functional mobility, decrease fall risk, and ADL dependence resulting from admitting diagnoses. Patient presents with clinical signs and symptoms consistent with current/admitting diagnoses that have resulted to mobility limitations, gait instability, generalized weakness, and overall ADL decline as demonstrated by the following impairment level findings: 1. Decreased strength to B LE major muscle groups 2. Impaired sitting/standing balance 3. Impaired activity tolerance 4. Limitation of joint range of motion in back and B UE/LE 5. Shortness of breath 6. Low back pain Impairments are contributing to the following functional limitations: 1. Decline in bed mobility skills 2. Decline in transfer skills 3. Difficulty with ambulation without assistive device and physical assistance 4. Increased completion time for mobility ADL performance 5. Increased risk for falls 6. Difficulty with managing steps alone safely Patient is assessed as a 66619 high complexity based on the following: History: 71-year-old femalewith past medical history as indicated above Examination: Demonstrable impairment in strength, balance, and mobility level with underlying impairments and functional limitations as exhibited above as well as deficit score of 69% utilizing the [facility] Mobility Inpatient Short Form Presentation: Evolving Decision Makin high complexity Goals: Goals X1 week 1. Supine-Sit independent 2. Sit-Supine independent 3. Sit-Stand standby assist 4. Stand-Sit with standby assist with bariatric FWW 5. Bed-Chair standby assist with bariatric FWW 6. Chair-Bed standby assist with bariatric FWW 7. Standby assist with bariatric FWW for gait on level surface with use of [] for at least [] feet without report of pain nor dyspnea 8. Good static and dynamic standing balance/tolerance Plan of Care/Treatment Plan: 1-2x/day, 7 days/week x 1 week. Plan of care has been reviewed with the CHYRON OPERATOR providing the service under Physical Therapy direction. Initiate Physical Therapy intervention for pain management as needed, strengthening, bed mobility, transfers, gait, stairs, balance training, and use of assistive device. DISCHARGE RECOMMENDATIONS: [] Home with no services [] [] Home with services [specify] [] Home with outpatient PT [] [X] SNF for continued rehabilitation. Patient will benefit from fci facility placement for continued skilled physical therapy services in order to progress mobility level, strength, and balance in preparation for a safe discharge to home. [] Intermediate Care [] [] SNF versus LTC based on ability to participate and progress [] TREATMENT CODE/TIME: 9716 x 25 minutes beginning at 10:40 AM. Thank you for the opportunity to participate in the care of this patient. Selene Collado PT, DPT, CLT [facility] [place], [place]
--- NOTE | 2021-11-05 12:36 | PDOC.CMIN ---
- If Service Date Differs Date of service: 11/05/21 Time of Service: 12:36 Care Management Initial Assess REASON FOR HOSPITALIZATION:: Urosepsis, Fall PAST MEDICAL HISTORY/PAST SURGICAL HISTORY:: All Active Problems. Metabolic encephalopathy (Acute). DVT prophylaxis (Acute). Chronic kidney disease (Chronic). Sinus tachycardia (Acute). Dehydration (Acute). Fall (Acute). Acute UTI (Acute). Fall (Acute). Back pain (Acute). Hyperkalemia (Acute). Diabetes mellitus type 2 (Chronic). On Metformin. Anemia (Chronic 05/03/13). Hemoglobin 8.2. Morbid obesity (Chronic). Hyperlipidemia (Chronic). 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 Worsening ulceration of a peristomal fistula that appears to be expanding in size. Leukocytosis. Intermittently febrile. Diverticulitis (Chronic). Recurrent. S/p high risk hemicolectomy in the setting of sepsis and hypotension 03/22/2013. Complication of a stomal leak resulting in an abdominal abscess. [place] [facility] [place] emergently with sepsis syndrome and had an abdominal abscess drained. Completed rehab at [facility] with discharge most recently on after extensive dressing care of the abdominal wound with a wound VAC. Hepatitis C (Chronic). Recent negative viral count. GERD (gastroesophageal reflux disease) (Chronic). Depression (Chronic). Vitamin D deficiency (Chronic). History of colostomy (Chronic). Medical History. Anemia. Depression. Diabetes mellitus. Essential hypertension. Gastroesophageal reflux disease. History of breast cancer. History of hepatitis C. History of incisional hernia. History of renal failure. Migraine. Morbid obesity. Osteopenia. Vitamin D deficiency. Surgical History. Colectomy. H/O mastectomy. Hernia Repair, Incisional. x2. S/P cholecystectomy PREVIOUS FUNCTIONAL STATUS/SOCIAL/FAMILY SUPPORTS:: Raven lives in [place] with a friend. She has two daughters who live locally. She uses a FWW to ambulate, and has support from family and friends, but has been independent with ADL's. CURRENT FUNCTIONAL STATUS:: Raven was sitting up in a chair when CM met with her. Her daughter, Marcia, and her son in law Gertrude were in the room. Raven stated that she has been having trouble ambulating at home lately, and when she worked with PT today, SNF was recommended for short term rehab. She stated that she is agreeable to SNF, and asked for referrals to be sent to the [facility] (first choice), [facility], [facility] and [facility]. CM sent referrals as requested. CM will continue to follow. ADVANCE DIRECTIVES:: None on file. Has patient been provided with info about the portal/API?: Yes Did the patient sign up for the portal?: No CODE STATUS:: Full Code INSURANCE COVERAGE / FINANCIAL ISSUES:: MCR/ [facility] MCR replacement/ [facility] CURRENT HOME/COMMUNITY SERVICES/EQUIPMENT:: No services. aRven uses a FWW at home. PRIMARY CARE PHYSICIAN:: Mary Ann Luo POTENTIAL DISCHARGE NEEDS:: Evaluations for further needs, follow up appoinments. PATIENT/FAMILY EDUCATION NEEDS:: Review discharge instructions regarding activity levels and medications, discussion of self care needs including ask me three. ANTICIPATED BARRIERS TO DISCHARGE:: None identified. TRANSPORTATION:: Via private vehicle by family. PLAN:: Anticipate Raven will go to SNF for short term rehab when medically cleared. She will transport via w/c van vs EMS, depending on mobility at the time of discharge. She will follow up with her PCP and discharge plan of care. CM will continue to follow.
--- NOTE | 2021-11-05 15:15 | W.PM.PROGNOT ---
Date of Service Date of service: 11/05/21 Time of Service: 15:15 Assessment and Plan Assessment and plan (1) Acute UTI: Status: Acute Assessment and plan: Due to UTI, present on admission. However, I her urine C&S was done after initiation of abx and is growing <10,000 CFU. I think it will be important to follow up the speciation/sensitivity of this regardless. Continue empiric ceftriaxone. (2) Sinus tachycardia: Status: Acute Assessment and plan: Secondary to pain and infection. Dehydration appears to have clinically resolved. D/c IVF. Consider initiation of beta blockers if remains tachcyardic despite appropriate therapy for infection after 48-72 hrs. (3) Dehydration: Status: Resolved Assessment and plan: As above (4) Metabolic encephalopathy: Status: Resolved Assessment and plan: Likely due to UTI. Resolved. Will monitor mental status with re-initiation of lyrica and cymbalta (5) Chronic kidney disease: Status: Chronic Assessment and plan: hold lisinopril in light of hyperkalemia (6) Fall: Status: Acute Assessment and plan: Continue working with PT. (7) Back pain: Status: Acute Assessment and plan: No acute process on CTs. Continue working with PT. The patient states that her back pain is actually better than her baseline at this time. (8) Hyperkalemia: Status: Resolved Assessment and plan: In setting of lisinopril use. S/p lokelma. K better. Will avoid alana-i in the future. (9) Diabetes mellitus type 2: Status: Chronic Assessment and plan: Continue basal bolus insulin (10) Anemia: Status: Chronic Assessment and plan: Outpatient follow up. (11) GERD (gastroesophageal reflux disease): Status: Chronic Assessment and plan: Continue PPI (12) DVT prophylaxis: Status: Acute Assessment and plan: heparin 5000 units SC q8h (13) Discharge planning issues: Status: Acute Assessment and plan: Full code Anticipate need for SNF on discharge Subjective Subjective Interval history since last seen: C/o shortness of breath which she thinks is worse now than when she first came to the hospital. Overall, she reports weakness. Denies dizziness, chest pain, nausea. Reports abdominal pain in the LUQ where it's been hurting since the fall. Exam Narrative Exam Narrative: General: A&Ox3, looks very mildly dyspneic, no cough, somewhat slow to respond, poor history provider HEENT: EOMI, MMM Heart: RRR, mildly tachycardic, no m/r/g Lungs: CTAB Abdomen: soft, tender in LUQ, nondistended Extremities: trace edema BLE's Objective Last Vital Signs Temp 36.8 C 11/05/21 11:34 Pulse 110 H 11/05/21 11:34 Resp 19 11/05/21 11:34 BP 105/54 L 11/05/21 11:34 Pulse Ox 93 11/05/21 11:34 Laboratory Results - last 24 hr 11/04/21 11/04/21 11/04/21 15:20 16:00 18:25 WBC RBC Hgb Hct MCV MCH MCHC RDW Plt Count MPV Immature Gran % Neutrophils % Lymphocytes % Monocytes % Eosinophils % Basophils % Nucleated RBC % Absolute Neutrophils Absolute Lymphocytes Absolute Monocytes Absolute Eosinophils Absolute Basophils VBG Lactate Sodium 135 L Potassium 6.1 H* Chloride 101 Carbon Dioxide 27.4 Anion Gap 6.6 BUN 28 H Creatinine 1.5 H Estimated GFR/1.73 m2 34.33 Glucose 355 H Hemoglobin A1c Calcium 10.4 H Total Bilirubin 0.4 AST 43 H ALT 27 Alkaline Phosphatase 95 Creatine Kinase Troponin I C-Reactive Protein NT-Pro-B Natriuret Pep Total Protein 7.6 Albumin 3.2 L Lipase Procalcitonin Prolactin Urine Color Yellow Urine Clarity Clear Urine pH 5.0 Ur Specific [place] >= 1.030 H Urine Protein 30 H Urine Ketones Trace H Urine Blood Small H Urine Nitrite Negative Urine Bilirubin Negative Urine Urobilinogen 0.2 Ur Leukocyte Esterase Small H Urine RBC Negative Urine WBC >50 H Ur Epithelial Cells Many Urine Crystals Negative Urine Bacteria Moderate Urine Casts Negative Urine Mucus Negative Urine Other Ur Culture Indicated? No/Sq. Contamination Urine Glucose 250 H COVID-19 Source Nasal/Nares SARS-CoV-2 (PCR) Negative Add-On Test Request 11/04/21 11/04/21 11/04/21 18:39 19:15 22:14 WBC RBC Hgb Hct MCV MCH MCHC RDW Plt Count MPV Immature Gran % Neutrophils % Lymphocytes % Monocytes % Eosinophils % Basophils % Nucleated RBC % Absolute Neutrophils Absolute Lymphocytes Absolute Monocytes Absolute Eosinophils Absolute Basophils VBG Lactate 1.9 H Sodium Potassium Chloride Carbon Dioxide Anion Gap BUN Creatinine Estimated GFR/1.73 m2 Glucose Hemoglobin A1c Calcium Total Bilirubin AST ALT Alkaline Phosphatase Creatine Kinase Troponin I C-Reactive Protein NT-Pro-B Natriuret Pep Total Protein Albumin Lipase Procalcitonin Prolactin Cancelled Urine Color Yellow Urine Clarity Cloudy Urine pH 5.5 Ur Specific [place] 1.010 Urine Protein Trace H Urine Ketones Negative Urine Blood Moderate H Urine Nitrite Negative Urine Bilirubin Negative Urine Urobilinogen 0.2 Ur Leukocyte Esterase Small H Urine RBC Negative Urine WBC >50 H Ur Epithelial Cells Few Urine Crystals Negative Urine Bacteria Negative Urine Casts Negative Urine Mucus Negative Urine Other Negative Ur Culture Indicated? Yes Urine Glucose Negative COVID-19 Source SARS-CoV-2 (PCR) Add-On Test Request 11/04/21 11/04/21 11/04/21 22:14 22:14 22:14 WBC RBC Hgb Hct MCV MCH MCHC RDW Plt Count MPV Immature Gran % Neutrophils % Lymphocytes % Monocytes % Eosinophils % Basophils % Nucleated RBC % Absolute Neutrophils Absolute Lymphocytes Absolute Monocytes Absolute Eosinophils Absolute Basophils VBG Lactate Sodium 136 Potassium 5.5 H Chloride 102 Carbon Dioxide 29.1 Anion Gap 4.9 BUN 27 H Creatinine 1.5 H Estimated GFR/1.73 m2 34.33 Glucose 261 H Hemoglobin A1c Calcium 10.1 Total Bilirubin AST ALT Alkaline Phosphatase Creatine Kinase Troponin I < 50 C-Reactive Protein NT-Pro-B Natriuret Pep 160 Total Protein Albumin Lipase 30 Procalcitonin Prolactin Urine Color Urine Clarity Urine pH Ur Specific [place] Urine Protein Urine Ketones Urine Blood Urine Nitrite Urine Bilirubin Urine Urobilinogen Ur Leukocyte Esterase Urine RBC Urine WBC Ur Epithelial Cells Urine Crystals Urine Bacteria Urine Casts Urine Mucus Urine Other Ur Culture Indicated? Urine Glucose COVID-19 Source SARS-CoV-2 (PCR) Add-On Test Request 11/04/21 11/04/21 11/04/21 22:14 22:14 22:14 WBC RBC Hgb Hct MCV MCH MCHC RDW Plt Count MPV Immature Gran % Neutrophils % Lymphocytes % Monocytes % Eosinophils % Basophils % Nucleated RBC % Absolute Neutrophils Absolute Lymphocytes Absolute Monocytes Absolute Eosinophils Absolute Basophils VBG Lactate 2.0 H Sodium Potassium Chloride Carbon Dioxide Anion Gap BUN Creatinine Estimated GFR/1.73 m2 Glucose Hemoglobin A1c Calcium Total Bilirubin AST ALT Alkaline Phosphatase Creatine Kinase 18 L Troponin I C-Reactive Protein NT-Pro-B Natriuret Pep Total Protein Albumin Lipase Procalcitonin 0.2 Prolactin Urine Color Urine Clarity Urine pH Ur Specific [place] Urine Protein Urine Ketones Urine Blood Urine Nitrite Urine Bilirubin Urine Urobilinogen Ur Leukocyte Esterase Urine RBC Urine WBC Ur Epithelial Cells Urine Crystals Urine Bacteria Urine Casts Urine Mucus Urine Other Ur Culture Indicated? Urine Glucose COVID-19 Source SARS-CoV-2 (PCR) Add-On Test Request 11/04/21 11/04/21 11/05/21 23:00 23:43 00:25 WBC RBC Hgb Hct MCV MCH MCHC RDW Plt Count MPV Immature Gran % Neutrophils % Lymphocytes % Monocytes % Eosinophils % Basophils % Nucleated RBC % Absolute Neutrophils Absolute Lymphocytes Absolute Monocytes Absolute Eosinophils Absolute Basophils VBG Lactate Sodium Cancelled Potassium Cancelled Chloride Cancelled Carbon Dioxide Cancelled Anion Gap Cancelled BUN Cancelled Creatinine Cancelled Estimated GFR/1.73 m2 Cancelled Glucose Cancelled Hemoglobin A1c Calcium Cancelled Total Bilirubin AST ALT Alkaline Phosphatase Creatine Kinase Troponin I < 50 C-Reactive Protein NT-Pro-B Natriuret Pep Total Protein Albumin Lipase Procalcitonin Prolactin Urine Color Urine Clarity Urine pH Ur Specific [place] Urine Protein Urine Ketones Urine Blood Urine Nitrite Urine Bilirubin Urine Urobilinogen Ur Leukocyte Esterase Urine RBC Urine WBC Ur Epithelial Cells Urine Crystals Urine Bacteria Urine Casts Urine Mucus Urine Other Ur Culture Indicated? Urine Glucose COVID-19 Source SARS-CoV-2 (PCR) Add-On Test Request DONE 11/05/21 11/05/21 11/05/21 06:42 06:42 06:42 WBC 10.69 RBC 4.12 Hgb 10.3 L Hct 35.7 L MCV 86.7 MCH 25.0 L MCHC 28.9 L RDW 15.3 H Plt Count 167 MPV 9.9 Immature Gran % 0.7 Neutrophils % 67.2 Lymphocytes % 21.6 Monocytes % 7.2 Eosinophils % 2.7 Basophils % 0.6 Nucleated RBC % 0 Absolute Neutrophils 7.19 H Absolute Lymphocytes 2.31 Absolute Monocytes 0.77 Absolute Eosinophils 0.29 Absolute Basophils 0.06 VBG Lactate 0.9 Sodium 140 Potassium 4.3 D Chloride 107 Carbon Dioxide 24.3 Anion Gap 8.7 BUN 25 H Creatinine 1.4 H Estimated GFR/1.73 m2 37.18 Glucose 146 H D Hemoglobin A1c Calcium 9.2 Total Bilirubin 0.2 AST 31 ALT 21 Alkaline Phosphatase 80 Creatine Kinase Troponin I C-Reactive Protein 2.75 H NT-Pro-B Natriuret Pep Total Protein 6.7 Albumin 2.7 L Lipase Procalcitonin Prolactin Urine Color Urine Clarity Urine pH Ur Specific [place] Urine Protein Urine Ketones Urine Blood Urine Nitrite Urine Bilirubin Urine Urobilinogen Ur Leukocyte Esterase Urine RBC Urine WBC Ur Epithelial Cells Urine Crystals Urine Bacteria Urine Casts Urine Mucus Urine Other Ur Culture Indicated? Urine Glucose COVID-19 Source SARS-CoV-2 (PCR) Add-On Test Request 11/05/21 06:42 WBC RBC Hgb Hct MCV MCH MCHC RDW Plt Count MPV Immature Gran % Neutrophils % Lymphocytes % Monocytes % Eosinophils % Basophils % Nucleated RBC % Absolute Neutrophils Absolute Lymphocytes Absolute Monocytes Absolute Eosinophils Absolute Basophils VBG Lactate Sodium Potassium Chloride Carbon Dioxide Anion Gap BUN Creatinine Estimated GFR/1.73 m2 Glucose Hemoglobin A1c 8.9 H Calcium Total Bilirubin AST ALT Alkaline Phosphatase Creatine Kinase Troponin I C-Reactive Protein NT-Pro-B Natriuret Pep Total Protein Albumin Lipase Procalcitonin Prolactin Urine Color Urine Clarity Urine pH Ur Specific [place] Urine Protein Urine Ketones Urine Blood Urine Nitrite Urine Bilirubin Urine Urobilinogen Ur Leukocyte Esterase Urine RBC Urine WBC Ur Epithelial Cells Urine Crystals Urine Bacteria Urine Casts Urine Mucus Urine Other Ur Culture Indicated? Urine Glucose COVID-19 Source SARS-CoV-2 (PCR) Add-On Test Request
[2021-11-05] MEDS: Levalbuterol HFA 15 GM INH 2 PUFF IH (16:07)
[2021-11-05] MEDS: Pregabalin 50 MG CAP PO (20:32)
[2021-11-05] MEDS: DULoxetine 30 MG CAP 60 MG PO (20:32)
[2021-11-05] MEDS: Acetaminophen 325 MG TAB PO (20:55)
[2021-11-05] MEDS: Simvastatin 40 MG TAB PO (22:33)
[2021-11-06] VITALS (15 sets, daily range): BP systolic 127–134; BP diastolic 59–79; PULSE 89–108; RESP 16–21; TEMP 36.5–36.7; O2SAT 87–98
[2021-11-06] MEDS: traMADol 50 MG TAB 100 MG PO (00:52)
[2021-11-06] MEDS: cefTRIAXone 1,000 MG in Normal Saline 50 ML 100 MG IVPB (05:23)
[2021-11-06] MEDS: Heparin 5,000 UNITS/ML VIAL 5000 UNITS SC ×3 (06:20→21:49)
[2021-11-06 07:09] LABS: Abs Immature Grans 0.04 10^3/uL (0.0-0.06); Absolute Basophil Count 0.03 10^3/uL (0.0-0.2); Absolute Eosinophil Count 0.35 10^3/uL (0.0-0.7); Absolute Lymphocyte Count 1.92 10^3/uL (1.2-3.4); Absolute Monocyte Count 0.59 10^3/uL (0.1-0.8); Absolute Neutrophil Count 4.64 10^3/uL (1.2-6.7); Basophils % 0.4; Eosinophils % 4.6; HCT 31.5 % (36.0-46.0); HGB 9.2 g/dL (11.2-15.7); Immature Grans % 0.5; Lymphocytes % 25.4; MCH 25.1 pg (27.0-33.0); MCHC 29.2 % (32.0-36.0); MCV 86.1 fL (80-95); MPV 10.2 fL (8.0-11.0); Monocytes % 7.8; Neutrophils % 61.3; Nucleated RBC 0 %; Platelet Count 141 10^3/uL (130-400); RBC 3.66 10^6/uL (3.93-5.22); RDW 15.6 % (11.7-14.6); RDW-SD 48.8 fL; WBC 7.57 10^3/uL (4.4-10.8)
[2021-11-06 07:26] LABS: Anion Gap 7.8 mmol/L (3-11); BUN 25 mg/dL (7-18); CO2 25.2 mmol/L (21.0-32.0); CREATININE 1.8 mg/dL (0.55-1.02); Chloride 110 mmol/L (98-107); Estimated GFR 27.82 (mL/min/1.73m2); Glucose 124 mg/dL (74-106); Magnesium 0.8 mg/dL (1.8-2.4); Potassium 4.6 mmol/L (3.5-5.1); Sodium 143 mmol/L (136-145)
[2021-11-06] MEDS: Cholecalciferol (Vitamin D3) 1,000 UNIT TAB 4000 UNITS PO (08:43)
[2021-11-06] MEDS: Aspirin 81 MG CHEW PO (08:43)
[2021-11-06] MEDS: Calcium 600mg/Vit D 200U TAB 1 TAB PO (08:44)
[2021-11-06] MEDS: Lactobacillus Acidophilus CAP 1 CAP PO ×2 (08:45→20:16)
[2021-11-06] MEDS: Insulin Glargine 300 UNITS/3 ML PEN 56 UNITS SC ×2 (08:48→20:17)
[2021-11-06] MEDS: Insulin Aspart 300 UNITS/3 ML PEN SC ×6 (08:48→21:49)
[2021-11-06] MEDS: Esomeprazole 40 MG CAPCR PO (08:59)
[2021-11-06] MEDS: MAGNESIUM SULFATE 4 GM/100 ML BAG IVPB (10:30)
[2021-11-06] MEDS: Normal Saline Flush 10 ML SYR IVP (10:30)
[2021-11-06] MEDS: Normal Saline 500 ML 30 ML IV (10:30)
[2021-11-06] MEDS: Acetaminophen 325 MG TAB PO (11:56)
[2021-11-06] MEDS: Methocarbamol 750 MG TAB PO ×3 (11:56→20:16)
--- NOTE | 2021-11-06 13:00 | PT.INTREAT ---
Date of service: 11/06/21 Time of Service: 11:00 PT Notes Visit Reasons: Urosepsis, Fall Inpatient Physical Therapy Treatment Note [facility] Date: 11/06/2021 PRECAUTIONS: Activities as tolerated and fall SUBJECTIVE: Stated she is willing to get up but does not really want to move out of bed. Knows her bed needs to be cleaned due to queen issues. OBJECTIVE: PAIN: Elbow and back pain complained of when getting out of bed. BED MOBILITY/TRANSFERS Rolling L/R: mod assist of one rolling to the right Supine-sit: mod assist of 2 Sit-stand: Mod assist of 2 Stand-sit: CGA assist of 2, did require mod assist of 4 with pulling Raven up in her recliner chair. GAIT Assistive Device: FWW Weight bearing: FWB Assist: Min assist of 2 and verbal cueing. Tends to keep walker too far out in front of her. Distance: 8 steps from bed to recliner chair. O2 supplement at 2L with O2 readings staying in the 90's with HR at rest at 109b/m and increasing to 132b/m with ambulation. THEREX: Performed supine ankle pumps, QS, GS, SLR with assist to 30 degrees and worked on deep breathing for 5 breaths x 4 sets. ASSESSMENT: Tolerated exercises well, but struggles with transfers and ambulation. Very fearful of falling. PLAN: Continue to encourage mobility, focus on ADL function. TREATMENT CODE/TIME: 38395 / 22004, (30') 11:00 to 11:30 am
[2021-11-06] MEDS: Pregabalin 50 MG CAP PO ×2 (14:10→20:17)
--- NOTE | 2021-11-06 18:50 | W.PM.PROGNOT ---
Date of Service Date of service: 11/06/21 Time of Service: 15:30 Assessment and Plan Assessment and plan (1) Acute UTI: Status: Acute Assessment and plan: Due to UTI, present on admission. However, her urine C&S was done after initiation of abx and is growing <10,000 CFU. speciation/sensitivity may still be useful. Continue empiric ceftriaxone. (2) Hypoxia: Status: Acute Assessment and plan: This may not be an acute finding but, rather, a chronic issue. I think Ms Dumont has a very high probability of having OHS/ITALO and needs a sleep study. She may require supplemental O2 on discharge. There is no acute respiratory process. Could benefit from PFTs. Will also obtain echo to assess for pulmonary hypertension. (3) Sinus tachycardia: Status: Acute Assessment and plan: Secondary to pain and infection. This is getting better. No longer requiring IVF. Consider initiation of beta blockers if remains tachcyardic despite appropriate therapy for infection after 48-72 hrs. (4) Dehydration: Status: Resolved Assessment and plan: As above (5) Metabolic encephalopathy: Status: Resolved Assessment and plan: Likely due to UTI. Resolved. Will monitor mental status with re-initiation of lyrica and cymbalta (6) Chronic kidney disease: Status: Chronic Assessment and plan: hold lisinopril in light of hyperkalemia (now resolved). Cr is actually worse today. She does have a queen catheter, so post-renal component is ruled out. No evidence of obstructive uropathy on CT. If Cr Continues to worsen tomorrow, I suspect this could be cardiorenal injury and, perhaps, lasix could be considered. Echo is being ordered. Continue to monitor I/O's and daily weights. (7) Fall: Status: Acute Assessment and plan: Continue working with PT. (8) Back pain: Status: Acute Assessment and plan: No acute process on CTs. Continue working with PT. The patient states that her back pain is actually better than her baseline at this time. (9) Hyperkalemia: Status: Resolved Assessment and plan: In setting of lisinopril use. S/p lokelma. K better. Will avoid alana-i in the future. (10) Diabetes mellitus type 2: Status: Chronic Assessment and plan: Continue basal bolus insulin (11) Anemia: Status: Chronic Assessment and plan: Outpatient follow up. (12) GERD (gastroesophageal reflux disease): Status: Chronic Assessment and plan: Continue PPI (13) DVT prophylaxis: Status: Acute Assessment and plan: heparin 5000 units SC q8h (14) Discharge planning issues: Status: Acute Assessment and plan: Full code Anticipate need for SNF on discharge Subjective Subjective Interval history since last seen: Ms Dumont required O2 last night - 1L - and again somewhat this morning, but this was successfully weaned off to 92% on RA. She states her breathing is better today and that she is feeling better. Denies dizziness, chest pain, shortness of breath, nausea, pain. Working with PT, who recommend SNF for discharge. Exam Narrative Exam Narrative: General: A&Ox3, on 1L of O2 at the time that I saw her, no cough, more animated today, looks better. HEENT: EOMI, MMM Heart: RRR, mildly tachycardic, no m/r/g Lungs: CTAB Abdomen: soft, nontender, nondistended Extremities: trace edema BLE's Objective Last Vital Signs Temp 36.5 C 11/06/21 15:35 Pulse 97 H 11/06/21 15:35 Resp 19 11/06/21 15:35 BP 129/59 L 11/06/21 15:35 Pulse Ox 97 11/06/21 15:35 Laboratory Results - last 24 hr 11/06/21 11/06/21 06:35 06:35 WBC 7.57 RBC 3.66 L Hgb 9.2 L Hct 31.5 L MCV 86.1 MCH 25.1 L MCHC 29.2 L RDW 15.6 H Plt Count 141 MPV 10.2 Immature Gran % 0.5 Neutrophils % 61.3 Lymphocytes % 25.4 Monocytes % 7.8 Eosinophils % 4.6 Basophils % 0.4 Nucleated RBC % 0 Absolute Neutrophils 4.64 Absolute Lymphocytes 1.92 Absolute Monocytes 0.59 Absolute Eosinophils 0.35 Absolute Basophils 0.03 Sodium 143 Potassium 4.6 Chloride 110 H Carbon Dioxide 25.2 Anion Gap 7.8 BUN 25 H Creatinine 1.8 H Estimated GFR/1.73 m2 27.82 Glucose 124 H Calcium 9.0 Magnesium 0.8 L
[2021-11-06] MEDS: DULoxetine 30 MG CAP 60 MG PO (20:16)
[2021-11-06] MEDS: Simvastatin 40 MG TAB PO (21:48)
[2021-11-07] VITALS (12 sets, daily range): BP systolic 110–161; BP diastolic 63–84; PULSE 88–102; RESP 16–21; TEMP 36.5–37.1; O2SAT 90–99
[2021-11-07] MEDS: Acetaminophen 325 MG TAB PO ×2 (04:34→13:02)
[2021-11-07] MEDS: Normal Saline Flush 10 ML SYR IVP ×4 (04:41→10:36)
[2021-11-07] MEDS: cefTRIAXone 1,000 MG in Normal Saline 50 ML 100 MG IVPB (05:12)
[2021-11-07] MEDS: Heparin 5,000 UNITS/ML VIAL 5000 UNITS SC ×3 (05:13→21:16)
[2021-11-07 07:06] LABS: Abs Immature Grans 0.05 10^3/uL (0.0-0.06); Absolute Basophil Count 0.04 10^3/uL (0.0-0.2); Absolute Eosinophil Count 0.46 10^3/uL (0.0-0.7); Absolute Lymphocyte Count 1.59 10^3/uL (1.2-3.4); Absolute Monocyte Count 0.63 10^3/uL (0.1-0.8); Absolute Neutrophil Count 5.78 10^3/uL (1.2-6.7); Basophils % 0.5; Eosinophils % 5.4; HCT 32.3 % (36.0-46.0); HGB 9.2 g/dL (11.2-15.7); Immature Grans % 0.6; Lymphocytes % 18.6; MCHC 28.5 % (32.0-36.0); MCV 87.8 fL (80-95); MPV 10.3 fL (8.0-11.0); Monocytes % 7.4; Neutrophils % 67.5; Nucleated RBC 0 %; Platelet Count 149 10^3/uL (130-400); RBC 3.68 10^6/uL (3.93-5.22); RDW 15.6 % (11.7-14.6); RDW-SD 49.4 fL; WBC 8.55 10^3/uL (4.4-10.8)
[2021-11-07 07:21] LABS: Anion Gap 6.4 mmol/L (3-11); BUN 24 mg/dL (7-18); CO2 25.6 mmol/L (21.0-32.0); CREATININE 1.9 mg/dL (0.55-1.02); Calcium 8.7 mg/dL (8.5-10.1); Chloride 109 mmol/L (98-107); Estimated GFR 26.13 (mL/min/1.73m2); Glucose 175 mg/dL (74-106); Magnesium 1.8 mg/dL (1.8-2.4); Potassium 5.3 mmol/L (3.5-5.1); Sodium 141 mmol/L (136-145)
[2021-11-07] MEDS: Cholecalciferol (Vitamin D3) 1,000 UNIT TAB 4000 UNITS PO (07:49)
[2021-11-07] MEDS: Calcium 600mg/Vit D 200U TAB 1 TAB PO (07:49)
[2021-11-07] MEDS: DULoxetine 30 MG CAP 60 MG PO ×2 (07:49→21:15)
[2021-11-07] MEDS: Pregabalin 50 MG CAP PO ×3 (07:49→21:15)
[2021-11-07] MEDS: Methocarbamol 750 MG TAB PO ×4 (07:49→21:16)
[2021-11-07] MEDS: Esomeprazole 40 MG CAPCR PO (07:50)
[2021-11-07] MEDS: Lactobacillus Acidophilus CAP 1 CAP PO ×2 (07:50→21:15)
[2021-11-07] MEDS: Aspirin 81 MG CHEW PO (07:50)
[2021-11-07] MEDS: Insulin Aspart 300 UNITS/3 ML PEN SC ×6 (07:56→21:17)
[2021-11-07] MEDS: Insulin Glargine 300 UNITS/3 ML PEN 56 UNITS SC ×2 (08:42→21:16)
[2021-11-07] MEDS: Metoprolol CR 25 MG TABCR 12.5 MG PO (08:43)
[2021-11-07] MEDS: Ondansetron O.D.T. 4 MG TABEF PO (10:45)
--- NOTE | 2021-11-07 13:26 | W.PM.PROGNOT ---
Date of Service Date of service: 11/07/21 Time of Service: 13:29 Assessment and Plan Assessment and plan (1) Acute UTI: Status: Acute Assessment and plan: Culture grew mixed gram positive edgar. Stopped Rocephin; had 3 doses. She did have an elevated WBC count on admission that has now normalized. (2) Hypoxia: Status: Acute Assessment and plan: This may not be an acute finding but, rather, a chronic issue. I think Ms Dumont has a very high probability of having OHS/ITALO and needs a sleep study. She may require supplemental O2 on discharge. There is no acute respiratory process. Could benefit from PFTs. Will also obtain echo to assess for pulmonary hypertension. (3) Sinus tachycardia: Status: Acute Assessment and plan: Secondary to pain and infection. This is getting better but still in the upper 90's, low 100's. No longer requiring IVF. Initiated low dose metoprolol CR 12.5mg po daily. (4) Dehydration: Status: Resolved Assessment and plan: As above (5) Metabolic encephalopathy: Status: Resolved Assessment and plan: No clear etiology; UTI was initially thought to be the cause but culture was negative. Resolved. Will monitor mental status with re-initiation of lyrica and cymbalta (6) Chronic kidney disease: Status: Chronic Assessment and plan: Lisinopril has been held in light of hyperkalemia (now resolved). Cr is above baseline. No evidence of obstructive uropathy on CT. If Cr Continues to worsens I suspect this could be cardiorenal injury and, perhaps, lasix could be considered. Echo is being ordered. Continue to monitor I/O's and daily weights. (7) Fall: Status: Acute Assessment and plan: Continue working with PT. (8) Back pain: Status: Acute Assessment and plan: No acute process on CTs. Continue working with PT. The patient states that her back pain is actually better than her baseline at this time. (9) Hyperkalemia: Status: Resolved Assessment and plan: In setting of lisinopril use. S/p lokelma. K better. Will avoid alana-i in the future. (10) Diabetes mellitus type 2: Status: Chronic Assessment and plan: Continue basal bolus insulin (11) Anemia: Status: Chronic Assessment and plan: Outpatient follow up. (12) GERD (gastroesophageal reflux disease): Status: Chronic Assessment and plan: Continue PPI (13) DVT prophylaxis: Status: Acute Assessment and plan: heparin 5000 units SC q8h (14) Discharge planning issues: Status: Acute Assessment and plan: Full code Anticipate need for SNF on discharge Subjective Subjective Patient reports: nausea and afebrile; denies diarrhea, vomiting or shortness of breath Interval history since last seen: Still feels generally weak with ambulation. Exam Narrative Exam Narrative: General: A&Ox3, on 2L of O2. HEENT: EOMI, MMM Heart: RRR, mildly tachycardic, no m/r/g Lungs: CTAB. Normal work of breathing. Abdomen: soft, obese, nontender, nondistended Extremities: trace edema BLE's Objective Last Vital Signs Temp 36.7 C 11/07/21 11:45 Pulse 101 H 11/07/21 11:45 Resp 21 11/07/21 11:45 BP 110/63 11/07/21 11:45 Pulse Ox 94 11/07/21 12:05 Laboratory Results - last 24 hr 11/07/21 11/07/21 06:10 06:10 WBC 8.55 RBC 3.68 L Hgb 9.2 L Hct 32.3 L MCV 87.8 MCH 25.0 L MCHC 28.5 L RDW 15.6 H Plt Count 149 MPV 10.3 Immature Gran % 0.6 Neutrophils % 67.5 Lymphocytes % 18.6 Monocytes % 7.4 Eosinophils % 5.4 Basophils % 0.5 Nucleated RBC % 0 Absolute Neutrophils 5.78 Absolute Lymphocytes 1.59 Absolute Monocytes 0.63 Absolute Eosinophils 0.46 Absolute Basophils 0.04 Sodium 141 Potassium 5.3 H Chloride 109 H Carbon Dioxide 25.6 Anion Gap 6.4 BUN 24 H Creatinine 1.9 H Estimated GFR/1.73 m2 26.13 Glucose 175 H Calcium 8.7 Magnesium 1.8
--- NOTE | 2021-11-07 14:21 | PT.INTREAT ---
Date of service: 11/07/21 Time of Service: 13:40 PT Notes Visit Reasons: Urosepsis, Fall Inpatient Physical Therapy Treatment Note [facility] Date: 11/07/2021 PRECAUTIONS: Fall and Activities as tolerated SUBJECTIVE: Stomach not feeling well this morning so PT held until post lunch. OBJECTIVE: PAIN: Back pain with bed mobility BED MOBILITY/TRANSFERS Supine-sit: with HOB at 45 degrees required mod assist of one Sit-stand: Min assist of 2 Stand-sit: CGA of 2 GAIT Assistive Device: FWW Weight bearing: FWB Assist: CGA with verbal cueing Distance: 10 steps bed to chair THEREX: Ankle pumps, QS, GS, SLR to 30 degrees, seated hip abd/add and hip flexion, UE bicep curls, shoulder horizontal abd/add and shoulder flexion for 10 reps each. ASSESSMENT: Did better with bed mobility and ambulation today. Chair was lower and this made positioning once in chair much easier. PLAN: Continue with current plan of care with focus on improved functional mobility and increased ambulation. TREATMENT CODE/TIME: 18813, (20') 1:40 to 2:00 pm
[2021-11-07] MEDS: Simvastatin 40 MG TAB PO (21:16)
[2021-11-08] VITALS (8 sets, daily range): BP systolic 113–165; BP diastolic 60–80; PULSE 56–97; RESP 14–21; TEMP 36.5–36.9; O2SAT 92–96
[2021-11-08] MEDS: Acetaminophen 325 MG TAB PO (01:16)
[2021-11-08] MEDS: traMADol 50 MG TAB 100 MG PO (03:46)
[2021-11-08] MEDS: Heparin 5,000 UNITS/ML VIAL 5000 UNITS SC ×3 (06:46→21:16)
[2021-11-08 06:51] LABS: Abs Immature Grans 0.06 10^3/uL (0.0-0.06); Absolute Basophil Count 0.05 10^3/uL (0.0-0.2); Absolute Eosinophil Count 0.45 10^3/uL (0.0-0.7); Absolute Lymphocyte Count 2.32 10^3/uL (1.2-3.4); Absolute Monocyte Count 0.63 10^3/uL (0.1-0.8); Basophils % 0.5; Eosinophils % 4.6; HCT 31.8 % (36.0-46.0); Immature Grans % 0.6; Lymphocytes % 23.6; MCH 24.7 pg (27.0-33.0); MCHC 28.3 % (32.0-36.0); MCV 87.1 fL (80-95); MPV 10.2 fL (8.0-11.0); Monocytes % 6.4; Neutrophils % 64.3; Nucleated RBC 0 %; Platelet Count 150 10^3/uL (130-400); RBC 3.65 10^6/uL (3.93-5.22); RDW 15.6 % (11.7-14.6); RDW-SD 49.5 fL; WBC 9.81 10^3/uL (4.4-10.8)
[2021-11-08 07:01] LABS: Anion Gap 7.6 mmol/L (3-11); BUN 30 mg/dL (7-18); CO2 24.4 mmol/L (21.0-32.0); CREATININE 1.5 mg/dL (0.55-1.02); Calcium 8.4 mg/dL (8.5-10.1); Chloride 110 mmol/L (98-107); Estimated GFR 34.33 (mL/min/1.73m2); Glucose 65 mg/dL (74-106); Potassium 4.5 mmol/L (3.5-5.1); Sodium 142 mmol/L (136-145)
--- NOTE | 2021-11-08 08:00 | DI.US_ITS ---
APPROVED REPORT EXAM: Comprehensive 2D, Doppler, and color-flow Echocardiogram Patient Location: In-Patient Room/Bed: 227 Hand Pleater: Mariza Neumann RDCS (AE) Indications: Suspected pulmonary Hypertension Other Information Study Quality: Fair. Technically limited study due to body habitus, patient on ventilator. Conclusion Normal left ventricular wall thickness and chamber size. Estimated ejection fraction is 55%. There are no segmental wall motion abnormalities Normal right ventricular size and systolic function Both atria are normal in size Trileaflet aortic valve without stenosis or regurgitation Mild mitral annular calcification. Mild mitral regurgitation Normal tricuspid valve with trace regurgitation. Estimated right ventricular systolic pressure is 36 mmHg Wall motion Left Ventricle The left ventricle is normal size. The left ventricular systolic function is normal. The left ventric ular ejection fraction is within the normal range. There is normal left ventricular wall thickness. T here is normal LV segmental wall motion. There is no ventricular septal defect visualized. LVEF is 55 %. Right Ventricle The right ventricle is normal size. The right ventricular systolic function is normal. The RVSP is 35 .9mmHg. Atria The left atrium size is normal. The right atrium size is normal. The interatrial septum is intact wit h no evidence for an atrial septal defect. Aortic Valve The aortic valve is normal in structure. Aortic valve is trileaflet. There is no aortic valvular sten osis. No aortic regurgitation is present. Mitral Valve Mild mitral annular calcification. No evidence of mitral valve stenosis. Mild mitral regurgitation. Tricuspid Valve The tricuspid valve is normal in structure. There is no tricuspid valve stenosis. Trace tricuspid reg urgitation. Pulmonic Valve The pulmonary valve is normal in structure. There is no pulmonic valvular stenosis. Trace pulmonic re gurgitation. Great Vessels The aortic root is normal in size. The ascending aorta is normal in size. IVC is normal in size and c ollapses >50% with inspiration. Pericardium There is no pericardial effusion. 2D Dimensions IVSD d PLAX 1.03 cm F: 0.6-1.0 LV Vol A2C d MOD 85.7 mL LVPW d PLAX 1.05 cm F: 0.6 - 1.0 LV Vol A4C d MOD 100.6 mL LVID d PLAX 4.84 cm F: 3.8 - 5.2 LA vol/ BSA A2C s A-L 16.3 mL/m2 LVDs 3.55 cm F: 2.2 - 3.5 LA vol/ BSA A4C s A-L 19.4 mL/m2 Ao Root d 2.80 cm F: 2.7 - 3.3 LA Vol/ BSA Biplane s A-L 18.0 mL/m2 RA Area A4C 12.17 cm2 LA Area A4C s MOD 16.69 cm2 RA Vol/ BSA A4C s A-L 13.1 mL/m2 LA Area A2C s MOD 15.51 cm2 Ao Asc Diam d 2.98 cm F: 2.3 - 3.1 LV EF A4C MOD 50.0 % LV EF Teichholz 50.4 % LV EF A2C MOD 55.4 % LVEF (Tatum's) 52.08 % F: 54 - 74 LV EF Biplane MOD 52.1 % LV Volume 68.58 mL F: 46 - 106 SV 49.37 mL LV Volume Index 30.61 mL/m2 F: 29 - 61 SV Index 22.06 mL/m2 LV Vol Biplane MOD 94.8 mL FS 25.65 % M-Mode TAPSE 1.92 cm (M/F) >1.7 LV Diastology MV E' medial 0.070 (>0.07 m/s) E/A Ratio 1.1 LV E/e MED 15.90 (<14) MV E Vmax 1.11 (0.4-1.3 m/s) MV E' lateral 0.084 (>0.1 m/s) MV A Vmax 1.00 (0.4-1.3 m/s) LV E/e LAT 13.10 (<14) MV E/A Ratio 1.06 MV E/E' medial 15.91 MV E/E' lateral 13.14 Aortic Valve LVOT Area 4.03 cm2 AoV Area Vmax 2.49 cm2 LVOT Vmax 0.94 m/s AoV Area/ BSA (Vmax) 1.11 cm2/m2 LVOT Mean Shviam. 0.77 m/s RADHA Mean Shivam. 2.71 cm2 LVOT Peak Grad 3.5 mmHg RADHA Mean Shivam. Index 1.21 cm2/m2 LVOT Mean Grad 2.6 mmHg LVOT VTI 0.214 m LVOT Diam s 2.25 cm AoV Vmax 1.52 m/s Velocity Ratio 0.61 AoV Mean Shivam. 1.15 m/s AoV Peak Grad 9.2 mmHg LVOT SV 86.17 mL AoV Mean Grad 5.6 mmHg AoV VTI 0.277 m AoV Area VTI 3.11 cm2 AoV Area/ BSA (VTI) 1.39 cm/m2 Mitral Valve MV DT 203 (160-240 msec) MV PHT 59 msec MV Area PHT 3.74 cm2 MV VTI 0.364 m MV Area VTI 2.37 (4.0-6.0 cm2) Pulmonary Valve PV Vmax 1.29 (0.5-1.5 m/s) RVOT Peak Gr. 2.81 mmHg PV Peak Grad 6.6 mmHg RVOT Mean Gr. 1.40 mmHg PV Mean Grad 3.0 mmHg RVOT VTI 0.128 m PV VTI 0.235 m RVOT Vmax 0.84 m/s Tricuspid Valve TR Peak Grad 32.9 mmHg TR Vmax 2.87 m/s RA Pressure 3.00 mmHg RVSP (TR) 35.9 mmHg
[2021-11-08] MEDS: Cholecalciferol (Vitamin D3) 1,000 UNIT TAB 4000 UNITS PO (08:42)
[2021-11-08] MEDS: DULoxetine 30 MG CAP 60 MG PO ×2 (08:42→21:16)
[2021-11-08] MEDS: Methocarbamol 750 MG TAB PO ×4 (08:43→21:16)
[2021-11-08] MEDS: Lactobacillus Acidophilus CAP 1 CAP PO ×2 (08:43→21:16)
[2021-11-08] MEDS: Pregabalin 50 MG CAP PO ×2 (08:43→21:16)
[2021-11-08] MEDS: Calcium 600mg/Vit D 200U TAB 1 TAB PO (08:43)
[2021-11-08] MEDS: Esomeprazole 40 MG CAPCR PO (08:43)
[2021-11-08] MEDS: Insulin Aspart 300 UNITS/3 ML PEN SC ×3 (08:43→17:28)
[2021-11-08] MEDS: Metoprolol CR 25 MG TABCR 12.5 MG PO (08:43)
[2021-11-08] MEDS: Aspirin 81 MG CHEW PO (08:43)
[2021-11-08] MEDS: Insulin Glargine 300 UNITS/3 ML PEN 56 UNITS SC (08:44)
--- NOTE | 2021-11-08 10:25 | PTTR_ITS ---
Date of service: 11/08/21 Time of Service: 10:25 PT Notes Visit Reasons: Urosepsis, Fall Inpatient Physical Therapy Treatment Note [facility] Date: 11/08/2021 PRECAUTIONS: Fall. Activities as tolerated. SUBJECTIVE: Agreeable to trying out hallway walking. Did complain of fatigue and being weak during ambulation activity. OBJECTIVE: ? PAIN: Denies ? BED MOBILITY/TRANSFERS? Sit-stand: Standby assist ? Stand-sit: Standby assist? GAIT? Assistive Device: FWW? Weight bearing: FWB Assist: Standby assist with verbal cueing ? Distance: 25 feet +20 feet +25 feet Deviation: Evonne decreased. Step length decreased. Complain of weakness and fatigue in BLE. Mild shortness of breath that resolved with rest.? THEREX: Ankle DF/PF x10, LAQs x10, seated flexion x10, seated hip abduction x10 ? ASSESSMENT: Demonstrates increasing independence with transfer and ambulation task performance now requiring only assist of 1 using front-wheeled walker. Remains to be limited by weakness and fatigue in B LE and therefore requires repeated rests. DISCHARGE RECOMMENDATIONS: [] Home with no services [] [X] Home with services. Home when medically cleared by hospitalist. Patient will benefit from home health PT services in order to progress mobility level using least restrictive assistive ambulatory device, assess home safety, identify additional equipment needs, and establish a functional maintenance program that will increase ability of patient to remain at home. [] Home with outpatient PT [] [] SNF for continued rehabilitation [] [] Group Home Care [] [] SNF versus LTC based on ability to participate and progress [] TREATMENT CODE/TIME: 26571 x 20 minutes, 10662 x 10 minutes beginning at 10:25 AM.
--- NOTE | 2021-11-08 10:55 | W.PM.PROGNOT ---
Date of Service Date of service: 11/08/21 Time of Service: 10:55 Assessment and Plan Assessment and plan (1) Acute UTI: Status: Acute Assessment and plan: Culture grew mixed gram positive edgar. Stopped Rocephin; had 3 doses. She did have an elevated WBC count on admission that has now normalized. (2) Hypoxia: Status: Acute Assessment and plan: This may not be an acute finding but, rather, a chronic issue. I think Ms Dumont has a very high probability of having OHS/ITALO and needs a sleep study. She may require supplemental O2 on discharge. There is no acute respiratory process. Could benefit from PFTs. Will also obtain echo to assess for pulmonary hypertension. (3) Sinus tachycardia: Status: Acute Assessment and plan: Secondary to pain and infection. This is getting better but still in the upper 90's, low 100's. No longer requiring IVF. Initiated low dose metoprolol CR 12.5mg po daily. (4) Dehydration: Status: Resolved Assessment and plan: As above (5) Metabolic encephalopathy: Status: Resolved Assessment and plan: No clear etiology; UTI was initially thought to be the cause but culture was negative. Resolved. Will monitor mental status with re-initiation of lyrica and cymbalta (6) Chronic kidney disease: Status: Chronic Assessment and plan: Lisinopril has been held in light of hyperkalemia (now resolved). Cr is now at baseline; 1.5 Will restart lisinopril. No evidence of obstructive uropathy on CT. Echo with normal LV wall thickness and chamber size. Est EF of 55%. No segmental wall motion abnormalities. Trileaflet aortic valve without stenosis or regurgitation Mild mitral annular calcification.? Mild mitral regurgitation Normal tricuspid valve with trace regurgitation.? Estimated right ventricular systolic pressure is 36 mmHg Continue to monitor I/O's and daily weights. (7) Fall: Status: Acute Assessment and plan: Continue working with PT. (8) Back pain: Status: Acute Assessment and plan: No acute process on CTs. Continue working with PT. Improved walking distance (with walker) today. Still fatigues easily. The patient states that her back pain is actually better than her baseline at this time. (9) Hyperkalemia: Status: Resolved Assessment and plan: In setting of lisinopril use. S/p lokelma. K normal 4.5. Will avoid alana-i in the future. (10) Diabetes mellitus type 2: Status: Chronic Assessment and plan: Continue basal bolus insulin Adjusted nighttime glargine dosage downward d/t glucose of 87 this am; though normal, concerned that with improved dietary intake while hospitalized, this may further decrease. (11) Anemia: Status: Chronic Assessment and plan: Outpatient follow up. (12) GERD (gastroesophageal reflux disease): Status: Chronic Assessment and plan: Continue PPI (13) DVT prophylaxis: Status: Acute Assessment and plan: heparin 5000 units SC q8h (14) Discharge planning issues: Status: Acute Assessment and plan: Full code Anticipate need for SNF vs home with home health; pt voices preference for the latter. Subjective Subjective Patient reports: no new complaints, tolerating a regular diet, shortness of breath (With ambulation) and afebrile; denies nausea or vomiting Exam Narrative Exam Narrative: General: A&Ox3, on 2L of O2. Sitting in wheelchair / immediately s/p walking in hallway with PT HEENT: EOMI, MMM Heart: RRR, mildly tachycardic, no murmur Lungs: CTAB. Normal work of breathing. Abdomen: soft, obese, nontender, nondistended Extremities: trace edema BLE's Objective Last Vital Signs Temp 36.7 C 11/08/21 08:30 Pulse 97 H 11/08/21 08:30 Resp 21 11/08/21 08:30 BP 165/74 H 11/08/21 08:30 Pulse Ox 96 11/08/21 08:30 Laboratory Results - last 24 hr 11/08/21 11/08/21 06:20 06:20 WBC 9.81 RBC 3.65 L Hgb 9.0 L Hct 31.8 L MCV 87.1 MCH 24.7 L MCHC 28.3 L RDW 15.6 H Plt Count 150 MPV 10.2 Immature Gran % 0.6 Neutrophils % 64.3 Lymphocytes % 23.6 Monocytes % 6.4 Eosinophils % 4.6 Basophils % 0.5 Nucleated RBC % 0 Absolute Neutrophils 6.30 Absolute Lymphocytes 2.32 Absolute Monocytes 0.63 Absolute Eosinophils 0.45 Absolute Basophils 0.05 Sodium 142 Potassium 4.5 Chloride 110 H Carbon Dioxide 24.4 Anion Gap 7.6 BUN 30 H Creatinine 1.5 H Estimated GFR/1.73 m2 34.33 Glucose 65 L D Calcium 8.4 L
--- NOTE | 2021-11-08 15:38 | PT.INTREAT ---
Date of service: 11/08/21 Time of Service: 15:24 PT Notes Visit Reasons: Urosepsis, Fall Inpatient Physical Therapy Treatment Note [facility] Date: 11/08/2021 PRECAUTIONS: Fall, activity as tolerated SUBJECTIVE: Raven is pleasant and agreeable to participating in PT, although she states that she is too tired to walk. OBJECTIVE: PAIN: No c/o pain BED MOBILITY/TRANSFERS/GAIT: Refused THEREX: Patient was instructed in a LE strengthening and stabilization program, completed in both long-sitting and seated positions, as per flow sheet. ASSESSMENT: Patient tolerated session well, although does demonstrate global weakness and limited activity tolerance. PLAN: Continue with global strengthening and gait training, as tolerated. TREATMENT CODE/TIME: 12 minutes; 26775 (15:24)
--- NOTE | 2021-11-08 18:00 | PDOC.CMPRO ---
- If Service Date Differs Date of service: 11/08/21 Time of Service: 18:00 Care Management Progress Note S/O: Raven was sitting up in her chair when CM met with her. She reported that she has been working with PT, and feels that her mobility is improving. CM reviewed the SNF referrals that were sent, and Raven stated that she feels that she has improved enough to be safe at home. CM discussed this with PT, who stated that she is near her baseline, walking stand by assist up to 25 feet. She will review SNF options tomorrow, and will decide if she would like to continue rehab in a facility or return home with HH services. CM will continue to follow. A: Raven is a 71 year old female admitted to [facility] on 11/04/21 with urosepsis, fall. P: Raven will go to SNF for short term rehab vs return home with new HH services when she is medically cleared. She will transport via w/c van, coordinated by CM. She may require a lift assist if she chooses to return home. She will follow up with her PCP and discharge plan of care. CM will continue to follow.
[2021-11-08] MEDS: Insulin Glargine 300 UNITS/3 ML PEN 45 UNITS SC (21:14)
[2021-11-08] MEDS: Simvastatin 40 MG TAB PO (21:17)
[2021-11-09] VITALS (7 sets, daily range): BP systolic 115–138; BP diastolic 59–82; PULSE 85–99; RESP 16–19; TEMP 36.3–37; O2SAT 92–94
[2021-11-09] MEDS: Heparin 5,000 UNITS/ML VIAL 5000 UNITS SC ×2 (05:12→14:30)
[2021-11-09] MEDS: Cholecalciferol (Vitamin D3) 1,000 UNIT TAB 4000 UNITS PO (08:35)
[2021-11-09] MEDS: Aspirin 81 MG CHEW PO (08:36)
[2021-11-09] MEDS: Esomeprazole 40 MG CAPCR PO (08:36)
[2021-11-09] MEDS: Lactobacillus Acidophilus CAP 1 CAP PO (08:37)
[2021-11-09] MEDS: DULoxetine 30 MG CAP 60 MG PO (08:37)
[2021-11-09] MEDS: Pregabalin 50 MG CAP PO ×2 (08:37→14:29)
[2021-11-09] MEDS: Calcium 600mg/Vit D 200U TAB 1 TAB PO (08:37)
[2021-11-09] MEDS: Metoprolol CR 25 MG TABCR 12.5 MG PO ×2 (08:38→09:19)
[2021-11-09] MEDS: Methocarbamol 750 MG TAB PO ×2 (08:38→12:33)
[2021-11-09] MEDS: Acetaminophen 325 MG TAB PO (09:18)
[2021-11-09] MEDS: Insulin Aspart 300 UNITS/3 ML PEN SC ×3 (10:47→12:38)
[2021-11-09] MEDS: Insulin Glargine 300 UNITS/3 ML PEN 56 UNITS SC (10:48)
--- NOTE | 2021-11-09 11:03 | INDS_ITS ---
Date of service: 11/09/21 Time of Service: 09:55 PT Notes Visit Reasons: Urosepsis, Fall Physical Therapy Inpatient Discharge Summary Date: 11/09/2021 Date of service: 11/05/2021 3 11/09/2021 Referring Doctor: Fabián Castro MD PT Orders: PT CONSULT: Fall safety assessment Precautions: Fall. Standard. Activity as tolerated. Patient Profile/Admitting Diagnosis: Raven is a 71-year-old female who presented to the ED on 11/04/2021 via EMS due to a fall during an attempt to stand up from her rocking chair, low back pain, and dizziness.? Patient is diagnosed with metabolic encephalopathy, dehydration, urinary tract infection, sinus tachycardia, low back pain and hyperlipidemia. PMHX: All Active Problems? 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 Leukocytosis.? Intermittently febrile. Diverticulitis (Chronic) Recurrent? S/p high risk hemicolectomy in the setting of sepsis and hypotension 03/22/2013. Complication of a stomal leak resulting in an abdominal abscess.? Readmitted to [facility] 05/03/13 emergently with sepsis syndrome and had? an abdominal abscess drained. ? Completed rehab at [facility] with discharge most recently on after extensive dressing care? of the abdominal wound with a wound VAC.Hepatitis C (Chronic) Recent negative viral count.GERD (gastroesophageal reflux disease) (Chronic) Depression (Chronic) Vitamin D deficiency (Chronic) History of colostomy (Chronic) Medical History? Anemia Depression Diabetes mellitus Essential hypertension Gastroesophageal reflux disease History of breast cancer History of hepatitis C History of incisional hernia History of renal failure Migraine Morbid obesity Osteopenia Vitamin D deficiency Surgical History? Colectomy H/O mastectomy Hernia Repair, Incisional x2S/P cholecystectomy Social History/Home Situation: Lives with significant other in a mobile home with a ramp to enter as well as 3 steps to enter.? Requires assistance for all significant other for all transfers using walker.? Short distance ambulation only prior to admission. Equipment Owned/DME: Front-wheeled walker, wheelchair Subjective: Agreeable to session. Looking forward to going home today. Objective: General Observation: Supine in bed.? Colostomy bag in place.? High BMI.? Randle catheter in place.? Mental Status: Alert and oriented as to person, place, time, and purpose. Able to pay attention, focus, and respond appropriately. Pain: Denies Vital Signs: Within normal limits as closely monitored by nursing staff ROM: Right Upper Extremity: ? Shoulder Flexion lacks 50% of AROM. Shoulder abduction lacks 50% of AROM. Elbow flexion WFL. Wrist flexion WFL. Functional opening and closing of hand WFL. Left Upper Extremity:? Shoulder Flexion lacks 50% of AROM. Shoulder abduction lacks 50% of AROM. Elbow flexion WFL. Wrist flexion WFL. Functional opening and closing of hand WFL. Right Lower Extremity: Hip flexion unable beyond 90 while seated at edge of bed Hip abduction 10 degrees. Knee flexion 0 to 90 degrees. Ankle dorsiflexion to neutral only. Ankle plantarflexion WFL. Left Lower Extremity: Hip flexion unable beyond 90 while seated at edge of bed Hip abduction 10 degrees. Knee flexion 0 to 90 degrees. Ankle dorsiflexion to neutral only. Ankle plantarflexion WFL. Strength: Right Upper Extremity: Shoulder flexors 3-/5. Shoulder abductors 3-/5. Elbow flexors 3-/5. Elbow extensors 3-/5. Personnel Arbitrator strong. Left Upper Extremity: Shoulder flexors 3-/5. Shoulder abductors 3-/5. Elbow flexors 3-/5. Elbow extensors 3-/5. Personnel Arbitrator strong. Right Lower Extremity: Hip flexors 3-/5. Hip abductors 3-/5. Knee flexors 3-/5. Knee extensor 3-/5. Ankle dorsiflexors 3-/5. Ankle plantarflexors 4-/5. Left Lower Extremity: Hip flexors 3-/5. Hip abductors 3-/5. Knee flexors 3-/5. Knee extensor 3-/5. Ankle dorsiflexors 3-/5. Ankle plantarflexors 4-/5. Bed Mobility/Transfers: Rolling with moderate assist of 2 with cues for safe/correct technique Supine to sit with moderate assist of 2 with cues for safe/correct technique Sit to stand with minimal assist of 2 with minimal cues for safe/correct technique Stand to sit with contact-guard assist with minimal cues for safe/correct technique Bed to reclining chair with minimal assist of 2 with minimalcues for safe/cor rect technique Gait: 45 feet using bariatric front-wheeled walker with standby assist and wheelchair follow for safe. Mild shortness of breath seen. Cues given for walker management Balance: Static Sitting: Fair Dynamic Sitting: Fair Static Standing: Fair Dynamic Standing: Poor Assessment: Ambulatory dysfunction, limited functional mobility, decrease fall risk, and ADL dependence resulting from admitting diagnoses. Patient presents with clinical signs and symptoms consistent with current/admitting diagnoses that have resulted to mobility limitations, gait instability, generalized weakness, and overall ADL decline as demonstrated by the following impairment level findings: 1.? Decreased strength to B LE major muscle groups 2.? Impaired sitting/standing balance 3.? Impaired activity tolerance 4.? Limitation of joint range of motion in back and B UE/LE 5.? Shortness of breath 6.? Low back pain Impairments are contributing to the following functional limitations: 1.? Decline in bed mobility skills 2.? Decline in transfer skills 3.? Difficulty with ambulation without assistive device and physical assistance 4.? Increased completion time for mobility ADL performance 5.? Increased risk for falls 6.? Difficulty with managing steps alone safely Goals: Goals X1 week 1. Supine-Sit independent NOT MET 2. Sit-Supine independent NOT MET 3. Sit-Stand standby assist NOT MET 4. Stand-Sit with standby assist with bariatric FWW NOT MET 5. Bed-Chair standby assist with bariatric FWW NOT MET 6. Chair-Bed standby assist with bariatric FWW NOT MET 7. Standby assist with bariatric FWW for gait on level surface with use of [] for at least [] feet without report of pain nor dyspnea NOT MET 8. Good static and dynamic standing balance/tolerance NOT MET DISCHARGE RECOMMENDATIONS: [] ? Home with no services [] [] ? Home with services [specify] [] ? Home with outpatient PT [] [X] ? SNF for continued rehabilitation.? Patient will benefit from senior care facility placement for continued skilled physical therapy services in order to progress mobility level, strength, and balance in preparation for a safe discharge to home. [] ? Home Care Nurse Care [] [] ? SNF versus LTC based on ability to participate and progress [] TREATMENT CODE/TIME: 61441 x 15 minutes, 33274 x 12 minutes beginning at 11:03 AM. Thank you for the opportunity to participate in the care of this patient. Selene Collado PT, DPT, CLT [facility] [place], [place]
--- NOTE | 2021-11-09 13:04 | DSE_ITS ---
Date of service: 11/09/21 Time of Service: 13:04 DS: Diagnosis Discharge Diagnosis (1) Acute UTI: Status: Resolved (2) Hypoxia: Status: Resolved (3) Sinus tachycardia: Status: Resolved (4) Dehydration: Status: Resolved (5) Metabolic encephalopathy: Status: Resolved (6) Chronic kidney disease: (7) Fall: Status: Resolved (8) Back pain: Status: Resolved (9) Hyperkalemia: Status: Resolved (10) Diabetes mellitus type 2: (11) Anemia: (12) GERD (gastroesophageal reflux disease): Discharge Plan Disposition Patient Disposition: HOME W/HOME HEALTH SERVICE Condition: Stable Discharge Details Reason For Visit: Urosepsis, Fall Admit Date/Time: 11/04/21 18:26 Admit Provider: Fabián De Guzman Attending Provider: Fabián De Guzman Primary Care Provider: Mary Ann Luo Hospital Course Hospital Course: This is a 71 year old female with history of morbid obesity, hep c, diverticulitis, enterocutaneous fistula with colostomy who presented to the ED after a fall at home that resulted in back pain. EMS transported to ED for evaluation. She was unable to provide much history as she was altered on arrival. Her work up in the ED showed hyperkalemia, dehydration and possible UTI. Her altered mental status showed normal CT scan and thought to be multifactorial with possible UTI pain and possible effect or worsened by fentanyl. She was also noted to tachycardic and did not respond to IV fluids so was started on lopressor. she otherwise remained hemodynamically stable. Her lisinopril placed on hold d/t her dehydration and addition of lopressor. She was also treated with levaquin initially but all cultures remained negative so this was discontinued. she returned to her baseline and was re-ambulated with PT. she remained hemodynamically stable. she was eating and drinking well. she was deemed appropriate for discharge to home with home health services. she will continue with metroprolol daily and hold lisinopril until discussed with outpatient team. discharge discussed with DR Iqbal. Home Meds and New Rx's Prescriptions: New metoprolol succinate 25 mg Tablet Extended Release 24 Hr 25 mg PO DAILY Qty: 30 0RF Continued simvastatin [Zocor] 40 MG tablet 40 mg PO HS 0RF calcium carbonate-vitamin D3 [Calcium 600 + D(3)] 1 EACH tablet 1 ea PO DAILY 0RF tramadol 50 MG tablet 100 mg PO HS PRN (Reason: Pain) 0RF insulin lispro [Humalog KwikPen Insulin] 100 unit/mL Insulin Pen 12 - 25 unit SUBCUT QAC 0RF Rx Instructions: sliding scale Lantus Solostar U-100 Insulin 100 unit/mL (3 mL) insulin pen 56 unit SUBCUT BID 0RF Label Comments: INJECT 56 UNITS SUBCUTANEOUSLY TWO TIMES A DAY- Once in the am and once in the pm aspirin 81 mg Tablet 81 mg PO DAILY 0RF albuterol sulfate [Ventolin HFA] 90 mcg/actuation Hfa Aerosol Inhaler 2 puff INHALATION Q4H 0RF cholecalciferol (vitamin D3) 50 mcg (2,000 unit) tablet 4,000 unit PO DAILY 0RF Label Comments: TAKE TWO TABLETS BY MOUTH EVERY DAY duloxetine 60 mg capsule,delayed release(DR/EC) 60 mg PO BID 0RF Label Comments: TAKE ONE CAPSULE BY MOUTH TWICE A DAY glipizide 5 mg tablet 10 mg PO BID 0RF Label Comments: TAKE TWO TABLETS BY MOUTH TWICE A DAY omeprazole 40 mg capsule,delayed release(DR/EC) 40 mg PO DAILY 0RF Label Comments: TAKE ONE CAPSULE BY MOUTH EVERY DAY pregabalin 50 mg capsule 50 mg PO TID 0RF Label Comments: TAKE ONE CAPSULE BY MOUTH THREE TIMES A DAY Discontinued lisinopril 10 MG tablet 10 mg PO DAILY 0RF Label Comments: not taking No Action magnesium oxide 400 mg magnesium Tablet 400 mg PO DAILY 0RF Discharge Instructions Instructions: Dehydration (DC) Stand Alone Forms: Nursing Discharge Form Referrals: Mary Ann Luo [Primary Care Provider] - (The office will call you with an appointment ) Activity:: Activity as Tolerated Equipment/Supplies:: No Equipment Needed Diet:: Carb Counting Discharge Orders Discharge Orders: Discharge Order (Routine); Ordered 11/09/21 Ordered By: Leonie Rodriguez Discharge Data Discharge Date/Time-TO BE ENTERED AT DEPARTURE: 11/09/21 15:48 DS: Summary Time Spent with Patient providing and/or coordinating discharge services: Greater than 30 minutes Status at Discharge Functional status at discharge: uses cane/walker Overall status at discharge: patient is progressing back to baseline Mental Status: mental status grossly normal Speech and Movement: speech and movement normal Mood: congruent mood Affect: normal affect Exam Const General: cooperative, comfortable, no acute distress, frail appearing and ill appearing chronically Nutritional Appearance: obese morbidly obese Orientation: alert, awake and oriented x3 HENMT Head: normal to inspection, normocephalic and atraumatic Chest Chest: normal inspection of the chest Resp Effort & Inspection: normal respiratory effort Auscultation: clear to auscultation bilaterally Cardio Rate: regular rate Rhythm: regular rhythm GI Inspection: large pannus and other (colostomy intact right side of abd, loose brown stool ) Palpation: soft Skin General skin exam: no rashes or lesions noted Neuro General: patient alert, patient awake and patient oriented x3 Extrem General: normal to inspection and full ROM Psych Mental Status: mental status grossly normal Speech and Movement: speech and movement normal Mood: congruent mood Affect: normal affect Attitude: cooperative DS: Data Vitals/I&O Vitals and I&O: Vital Signs Temperature 36.9 C 11/09/21 11:26 Temperature Source Tympanic 11/09/21 11:26 Pulse 91 H 11/09/21 11:26 Pulse Rhythm Regular 11/09/21 11:06 Pulse 121 H 11/04/21 19:01 Respiratory Rate 18 11/09/21 11:26 Respiratory Effort Non-Labored 11/09/21 11:06 Respiratory Depth Normal 11/09/21 11:06 Respiratory Pattern Normal 11/09/21 02:18 Blood Pressure 134/79 11/09/21 11:26 Blood Pressure Mean 103 11/04/21 19:01 Blood Pressure Position Sitting 11/04/21 14:11 Pulse Oximetry 93 11/09/21 11:26 Oxygen Delivery Method Room Air 11/09/21 11:26 Oxygen Flow Rate 0 11/09/21 11:26 Pain Level 0 11/09/21 11:26 Comment 11/07/21 12:05 Intake & Output 11/08/21 11/09/21 11/09/21 23:59 11:59 23:59 Intake Total 360 / 360 Output Total 1050 / 2150 1850 / 1850 Balance -1050 / -2150 -1490 / -1490 Weight 131.9 kg Intake: Oral 360 / 360 Output: Urine 500 / 1350 1850 / 1850 Stool 550 / 800 Other: Urine Color Yellow Pale Yellow Urine Appearance Clear Clear Data Completed and Pending Labs on day of discharge: Preliminary micro results at discharge 11/05/21 06:42 Blood Culture - Preliminary Blood NO GROWTH 96 HOURS 11/04/21 19:15 Blood Culture - Preliminary Blood NO GROWTH 96 HOURS PFSH All Active Problems Morbid obesity (Chronic) Hyperlipidemia (Chronic) 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 Leukocytosis. Intermittently febrile. Diverticulitis (Chronic) Recurrent. S/p high risk hemicolectomy in the setting of sepsis and hypotension 03/22/2013. Complication of a stomal leak resulting in an abdominal abscess. Readmitted to [facility] [place] 05/03/13 emergently with sepsis syndrome and had an abdominal abscess drained. Completed rehab at [facility] with discharge most recently on after extensive dressing care of the abdominal wound with a wound VAC. Hepatitis C (Chronic) Recent negative viral count. Depression (Chronic) Vitamin D deficiency (Chronic) History of colostomy (Chronic) Medical History Anemia Depression Diabetes mellitus Essential hypertension Gastroesophageal reflux disease History of breast cancer History of hepatitis C History of incisional hernia History of renal failure Migraine Morbid obesity Osteopenia Vitamin D deficiency Surgical History Colectomy H/O mastectomy Hernia Repair, Incisional x2 S/P cholecystectomy Family History Mother No problems noted. Father No problems noted. Social History Smoking/Tobacco Use Status: Former Tobacco Use Smoking risk assessment performed?: Yes Alcohol Intake: never Drug use: Never Substance use type: does not use Do you feel safe at home: Yes Do you feel safe in your relationship?: Yes
--- NOTE | 2021-11-09 13:17 | PDOC.HHF2F ---
Home Health Certification Home Health Certification: 1. Encounter Date and Reason I certify that Raven Dumont was seen by Leonie Rodriguez on 11/09/21 and that I had a [id number] encounter with this patient that meets the physician face to face encounter requirements. 2. Clinical Findings Supporting Skilled Need and Homebound Status I certify that home health services are medically necessary, include either intermittent chcf and/or physical/speech therapy, and that this patient is homebound in that absences from the home require considerable and taxing effort and are infrequent or of short duration, or are attributable to the need to receive medical care. [X] (a) Attached documentation from encounter provides clinical findings supporting skilled need and homebound status (including what assistance patient requires to leave the home). The encounter with the patient was in whole, or in part, for the following medical condition, which is the primary reason for home health care: Dehydration, Fall Long-Term: routine nursing assessment, medication oversight Physical and Occupational Therapy: routine evaluation and treatment, home safety evaluation CHAR CONVEYOR TENDER: routine evaluation and oversight Homebound: patient is unable to safely leave the house unassisted d/t decreased strength and endurance, unsteady gait, recent falls 3. Certification and Authentication I certify that I composed the above information based on my clinical judgment relating to this patient's medical condition and, if applicable, clinical findings communicated to me by the NPP or inpatient physician who performed the Home Health Referral. All further orders will be obtained through _Mary Ann Luo _(Community Based Physician - PCP)
--- NOTE | 2021-11-09 16:02 | PDOC.CMDIS ---
- If Service Date Differs Date of service: 11/09/21 Time of Service: 16:02 LACE Index Scoring Tool - Questions: Length of Stay (in days): 4 - 6 Acuity (Admit via E.D.?): Yes Comorbidities: Diabetes w/o Complication E.D. Visits: 1 - Answers: Total Score: 9 Risk of Readmission: Low Risk Care Management Discharge Reason for Hospitalization: Urosepsis, Fall Discharge Plan: Raven returned home today with new RN, PT, OT, [employer]LE [employer]ING [employer]LE[employer]. Her friend transported her home via private vehicle. CM coordinated a lift assist from [employer] upon her arriving home, as she stated that she cannot manage the steps to get into the home. She will follow up with her PCP and discharge plan of care. She is happy to be going home. Patient/Family Education Needs: Review discharge instructions regarding activity levels and medications, discussion of self care needs including ask me three and goals of care. Services Needed at Discharge: Home Health Care Services (HH RN, PT, OT, [employer]LE [employer]IVING NOZZLEMAN), Transportation (Lift assist, [employer])
== END 2021-11-09 15:48 | disposition home health service (06) | DRG 689 ==
LOC: ER 18:50 → MS 19:14
PROVIDERS: Family Medicine; Internal Medicine; Admitting Provider Internal Medicine; Emergency Provider Student in an Organized Health Care Education/Training Program; PCP Family Medicine; Visit Provider Internal Medicine
DX: N39.0 Urinary tract infection, site not specified (principal); G93.41 Metabolic encephalopathy; Z68.43 Body mass index [BMI] 50.0-59.9, adult; R00.0 Tachycardia, unspecified; E86.0 Dehydration; N18.9 Chronic kidney disease, unspecified; W19.XXXA Unspecified fall, initial encounter; M54.9 Dorsalgia, unspecified; E11.22 Type 2 diabetes mellitus with diabetic chronic kidney disease; D64.9 Anemia, unspecified; K21.9 Gastro-esophageal reflux disease without esophagitis; I12.9 Hypertensive chronic kidney disease with stage 1 through stage 4 chronic kidney disease, or unspecified chronic kidney disease; Z85.3 Personal history of malignant neoplasm of breast; Z93.3 Colostomy status; E87.5 Hyperkalemia; Z79.84 Long term (current) use of oral hypoglycemic drugs; E66.01 Morbid (severe) obesity due to excess calories; E78.5 Hyperlipidemia, unspecified; B19.20 Unspecified viral hepatitis C without hepatic coma; F32.9 Major depressive disorder, single episode, unspecified; E55.9 Vitamin D deficiency, unspecified; G43.909 Migraine, unspecified, not intractable, without status migrainosus; R06.02 Shortness of breath; R53.1 Weakness; R09.02 Hypoxemia; G47.33 Obstructive sleep apnea (adult) (pediatric)
CPT/HCPCS: 36415; 51702; 71275; 74177; 80048; 80053; 82550; 83690; 84145; 87040; 87635; 93005; 93306; 96361; 96365; 96375; 97110; 97163; 97530; 99285; U0005; 70450; 81003; 81015; 82270; 83036; 83605; 83630; 83735; 83880; 84146; 84484; 85025; 86140; 87086; 93010; 99223; 99232; 99233; 99239; J0696; J1170; J1644; J1956; J2405; J3475; J3490

== ENCOUNTER 2021-11-23 20:13 | Inpatient (IN) | payer MEDICARE, MEDICAID, SELFPAY ==
[2021-11-23] VITALS (29 sets, daily range): BP systolic 110–143; BP diastolic 64–90; PULSE 108–120; RESP 13–35; TEMP 36.5; O2SAT 78–99
--- NOTE | 2021-11-23 20:26 | W.ED.GENAD ---
Discharge Plan Disposition Patient Disposition: [facility] INPATIENT Condition: Stable Discharge Details Chief Complaint: GenMedical Clinical Impression: Back pain, Hypomagnesemia Primary Care Provider: Mary Ann Luo ED Provider: Tyrone Sky Home Meds and New Rx's Prescriptions: No Action simvastatin [Zocor] 40 MG tablet 40 mg PO HS 0RF calcium carbonate-vitamin D3 [Calcium 600 + D(3)] 1 EACH tablet 1 ea PO DAILY 0RF tramadol 50 MG tablet 100 mg PO HS PRN (Reason: Pain) 0RF insulin lispro [Humalog KwikPen Insulin] 100 unit/mL Insulin Pen 12 - 25 unit SUBCUT QAC 0RF Rx Instructions: sliding scale Lantus Solostar U-100 Insulin 100 unit/mL (3 mL) insulin pen 56 unit SUBCUT BID 0RF Label Comments: INJECT 56 UNITS SUBCUTANEOUSLY TWO TIMES A DAY- Once in the am and once in the pm aspirin 81 mg Tablet 81 mg PO DAILY 0RF albuterol sulfate [Ventolin HFA] 90 mcg/actuation Hfa Aerosol Inhaler 2 puff INHALATION Q4H 0RF cholecalciferol (vitamin D3) 50 mcg (2,000 unit) tablet 4,000 unit PO DAILY 0RF Label Comments: TAKE TWO TABLETS BY MOUTH EVERY DAY duloxetine 60 mg capsule,delayed release(DR/EC) 60 mg PO BID 0RF Label Comments: TAKE ONE CAPSULE BY MOUTH TWICE A DAY glipizide 5 mg tablet 10 mg PO BID 0RF Label Comments: TAKE TWO TABLETS BY MOUTH TWICE A DAY omeprazole 40 mg capsule,delayed release(DR/EC) 40 mg PO DAILY 0RF Label Comments: TAKE ONE CAPSULE BY MOUTH EVERY DAY pregabalin 50 mg capsule 50 mg PO TID 0RF Label Comments: TAKE ONE CAPSULE BY MOUTH THREE TIMES A DAY magnesium oxide 400 mg magnesium Tablet 400 mg PO DAILY 0RF metoprolol succinate 25 mg Tablet Extended Release 24 Hr 25 mg PO DAILY Qty: 30 0RF Medical Decision Making 71 yo female with hx of morbid obesity, hld, hepatitis C, colostomy, back pain, who comes in with ems with complaints of lower back pain. She was admitted for lower back pain within the last 3 months and initially thought to have uti but was negative. She improved with PT and pain meds and discharged. She states she has continued to have the lower back pain and is worsening. Denies abdominal pain, chest pain, fevers, chills. She has a colostomy with normal appearing stool. No abdominal tenderness. She is caox4 with no focal motor or sensation deficits. no cva tenderness but has tenderness throughout the lower back. Suspect this could be acute on chronic back pain from deconditioning and obesity but will obtain ct to evaluate for kidney stone and ct lumbar spine, and evaluate for uti. no saddle anthesia and no fevers/chills so doubt cauda equina or sea. labs show mag of less than 1 which she has had in the past but most recent was over 1. Imaging and rest of labs unremarkable. Pain improved and is tired now from meds. Her daughter states she felt the patient should have been in rehab when she was admitted last and found her in her chair screaming in pain and is not well to take care of herself at home. Do not feel she is safe for d/c, patient agreeable to admission and again having PT eval, will discuss with hospitalist. Differential Diagnosis Differential Diagnosis: uti, chronic pack pain, compression fracture Medical Records Medical records reviewed: Yes I reviewed the patient's medical records. Imaging Data Radiologic Study: Attestation: I personally reviewed and interpreted this imaging study as follows: Imaging: CT Scan Radiologist's impression: IMPRESSION: No acute lumbar fracture detected with left foraminal narrowing identified at L5-S1. Radiologic Study #2: Attestation: I personally reviewed and interpreted this imaging study as follows: Imaging: CT Scan Radiologist's impression: vIMPRESSION: No acute lumbar fracture detected with left foraminal narrowing identified at L5-S1 on lumbar ct recons Lab Data Lab results reviewed: Yes I reviewed the patient's lab results. HPI General Mode of arrival: EMS. Date/Time Provider Initiated Documentation: 11/23/21 20:20. Limitations to Documentation: no limitations. Information obtained by: patient. History of Present Illness 71 year old F presents to the emergency department with the chief complaint of low back pain, described as moderate, Quality is described as sharp, and is localized to the back. Patient reports no radiation. Patient started experiencing this month(s) (3) and it has been constant. improves with No relieving factors improve symptom(s), No exacerbating factors reported . Patient notes no other symptoms.. Patient did receive the following treatments prior to arrival, none Related Data Home Medications Medication Instructions Recorded Confirmed calcium carbonate 600 mg-vitamin 1 ea PO DAILY 05/10/13 11/23/21 D3 10 mcg (400 unit) tablet (Calcium 600 + D(3)) simvastatin 40 mg tablet (Zocor) 40 mg PO HS 05/10/13 11/23/21 tramadol 50 mg tablet 100 mg PO HS PRN 05/30/14 11/23/21 insulin lispro 100 unit/mL 12 - 25 unit SUBCUT QAC 09/14/18 11/05/21 subcutaneous pen (Humalog KwikPen (U-100) Insulin) albuterol sulfate 90 mcg/actuation 2 puff INHALATION Q4H 12/08/20 11/23/21 aerosol inhaler (Ventolin HFA) aspirin 81 mg tablet 81 mg PO DAILY 12/08/20 11/23/21 insulin glargine 100 unit/mL (3 56 unit SUBCUT BID 12/08/20 11/23/21 mL) subcutaneous pen (Lantus Solostar U-100 Insulin) cholecalciferol (vitamin D3) 50 4,000 unit PO DAILY 11/05/21 11/23/21 mcg (2,000 unit) tablet duloxetine 60 mg capsule,delayed 60 mg PO BID 11/05/21 11/23/21 release glipizide 5 mg tablet 10 mg PO BID 11/05/21 11/05/21 magnesium oxide 400 mg PO DAILY 11/05/21 11/05/21 omeprazole 40 mg capsule,delayed 40 mg PO DAILY 11/05/21 11/23/21 release pregabalin 50 mg capsule 50 mg PO TID 11/05/21 11/23/21 metoprolol succinate 25 mg 25 mg PO DAILY #30 tab 11/09/21 11/23/21 tablet,extended release 24 hr Previous Rx's Medication Instructions Recorded metoprolol succinate 25 mg 25 mg PO DAILY #30 tab 11/09/21 tablet,extended release 24 hr Allergies Allergy/AdvReac Type Severity Reaction Status Date / Time epinephrine Allergy Severe chest Unverified 11/23/21 20:26 pain/heart attack Penicillins Allergy Intermediate rsh fever Unverified 11/23/21 20:26 banana [Banana] Allergy Unverified 11/23/21 20:26 NSAIDS (Non-Steroidal Allergy unkown Unverified 11/23/21 20:26 Anti-Inflamma Sulfa (Sulfonamide Allergy rash,fever Unverified 11/23/21 20:26 Antibiotics) Tetracyclines Allergy rash fever Unverified 11/23/21 20:26 sodium polystyrene sulfonate AdvReac Severe tachy/dyspn Unverified 11/23/21 20:26 [From Kayexalate] ea/rash Niacin Preparations AdvReac Intermediate flushing Unverified 11/23/21 20:26 General Stated Complaint: GenMedical TASHA: 2 Review of Systems All systems reviewed & are unremarkable except as noted in HPI and below Constitutional Constitutional: Denies chills and Denies fever(s) Eyes Eyes: Denies loss of vision Cardiovascular Cardiovascular: Denies chest pain and Denies dyspnea Respiratory Respiratory: Denies cough and Denies dyspnea Gastrointestinal Gastrointestinal: Denies abdominal pain, Denies nausea and Denies vomiting Musculoskeletal Musculoskeletal: Denies joint swelling Integumentary/Breasts Skin/Breast: Denies rash Neurologic Neurologic: Denies loss of vision PFSH All Active Problems Hypomagnesemia (Acute) Back pain (Acute) Morbid obesity (Chronic) Hyperlipidemia (Chronic) 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 Leukocytosis. Intermittently febrile. Diverticulitis (Chronic) Recurrent. S/p high risk hemicolectomy in the setting of sepsis and hypotension 03/22/2013. Complication of a stomal leak resulting in an abdominal abscess. Readmitted to [facility] 05/03/13 emergently with sepsis syndrome and had an abdominal abscess drained. Completed rehab at [facility] with discharge most recently on after extensive dressing care of the abdominal wound with a wound VAC. Hepatitis C (Chronic) Recent negative viral count. Depression (Chronic) Vitamin D deficiency (Chronic) History of colostomy (Chronic) Medical History Anemia (05/03/13) Hemoglobin 8.2. Anemia Chronic kidney disease Depression Diabetes mellitus Diabetes mellitus type 2 On Metformin Essential hypertension Fall Gastroesophageal reflux disease GERD (gastroesophageal reflux disease) History of breast cancer History of hepatitis C History of incisional hernia History of renal failure Migraine Morbid obesity Osteopenia Vitamin D deficiency Surgical History Colectomy H/O mastectomy Hernia Repair, Incisional x2 S/P cholecystectomy Family History Mother No problems noted. Father No problems noted. Social History Smoking/Tobacco Use Status: Former Tobacco Use Smoking risk assessment performed?: Yes Alcohol Intake: never Drug use: Never Substance use type: does not use Do you feel safe at home: Yes Do you feel safe in your relationship?: Yes Exam Const General: no acute distress Orientation: alert HENMT Head: normal to inspection Ears: external ears normal General nose exam: external nose normal Mouth: moist mucous membranes Eyes General: appearance normal, both eyes and all related structures Neck Neck: normal visual inspection Resp Effort & Inspection: normal respiratory effort and able to speak in complete sentences Cardio Rate: regular rate Skin General skin exam: no rashes or lesions noted Neuro General: patient alert and patient oriented x3 Extrem General: normal to inspection Psych Mental Status: mental status grossly normal Course Vital Signs Vital signs: Vital Signs Temperature 36.5 C 11/23/21 20:13 Pulse 113 H 11/23/21 20:13 Respiratory Rate 20 11/23/21 20:13 Blood Pressure 143/72 H 11/23/21 20:13 Pulse Oximetry 97 11/23/21 20:13 Temperature 36.5 C 11/23/21 20:13 Temperature Source Skin 11/23/21 20:13 Pulse 113 H 11/23/21 20:13 Respiratory Rate 20 11/23/21 20:19 Respiratory Effort 11/23/21 20:19 Respiratory Depth Normal 11/23/21 20:19 Respiratory Pattern Normal 11/23/21 20:19 Blood Pressure 143/72 H 11/23/21 20:13 Blood Pressure Position Supine 11/23/21 20:13 Pulse Oximetry 97 11/23/21 20:13 Oxygen Delivery Method Room Air 11/23/21 20:13 Oxygen Flow Rate 0 11/23/21 20:13 Pain Level 8 11/23/21 20:13
[2021-11-23 20:28] LABS: Source Nasal/Nares
--- NOTE | 2021-11-23 20:30 | DI.CT_ITS ---
Exam(s) CT LUMBAR SPINE RECONS CT RENAL COLIC WO EXAM: CT RENAL COLIC WO CLINICAL HISTORY: lower back and flank pain. TECHNIQUE: Imaging Protocol: Axial computed tomography images with coronal and sagittal reformatted images were created and reviewed. CONTRAST MATERIAL: Noncontrast COMPARISON: CT ABD PELVIS WO CONTRAST from 06/18/[address] THORACIC LUMBAR SPINE REC from 11/04/[address] CHEST PE ABD PELVIS W from 11/04/[address] LUMBAR SPINE RECONS from 11/23/2021 FINDINGS: Exam is somewhat limited by patient body habitus and respiratory motion. ABDOMEN: Lung Bases: Respiratory motion. Heart enlarged. Liver: Mild fatty infiltration.. No measurable mass. Gallbladder and biliary tract: Status post cholecystectomy. No radiodense calculus or dilation. Pancreas: Normal density, no calcifications or inflammatory process. Spleen: Normal. Kidneys: Cyst upper pole left kidney. No change lobulated contour of the right kidney.. No radioden se stones or obstructive uropathy. No masses seen. Adrenal glands: No masses seen. Abdominal Aorta: Abdominal portion non-dilated. Mild atherosclerotic changes. 4.8 centimeter area of calcification superior to the stomach and lateral to the liver likely represen ts an area of fat necrosis. It which was visible on 2013 exam but was uncalcified at that time. Soft tissues: Right-sided ostomy, unchanged. PELVIS: Bladder: Symmetric distention, no gross wall thickening. Bowel: No obstruction or bowel wall thickening. Peritoneal cavity: No ascites, collection or mesenteric inflammatory response. Reproductive: 8.5 by 8 .7 centimeter cystic mass with septation likely originating from the left ovary. This is increased in size when compared with the previous exam. Heterogeneous uterus could indicate versus endometrial abnormality . Enlargement versus cyst of the right ovary.. Bones: CT lumbar spine: Mild levoscoliosis no compression fracture. Degenerative disc changes are n oted greater in the lower thoracic and upper lumbar levels.. Facet degenerative changes are promin ent in the lower lumbar region. Bones appear osteoporotic. No gross lytic or blastic lesions. IMPRESSION: 1. Interval increase in size of left ovarian cystic mass with septation, suspicious for neoplasm. 2. Heterogeneous lesions within the uterus, better seen on previous exam. Malignancy not excluded. 3. No acute abnormality of the lumbar spine. Degenerative changes and mild scoliosis. RADIATION DOSE DELIVERED: Total DLP DATA REPOSITORY: All CT scans at this facility are submitted to the National Radiology Data Registry (NRDR) Dose Index Registry (DIR) with the [employer] ([employer]). RADIATION OPTIMIZATION: All CT scans at this facility use at least one of these dose optimization te chniques: automated exposure control; mA and/or kV adjustment per patient size (includes targeted exa ms where dose is matched to clinical indication); or iterative reconstruction.
[2021-11-23 20:54] LABS: BE (Venous) 0 mmol/L (-2-3); HCO3 (Venous) 27 mmol/L (23-28); O2 Sat (Venous) 49 %; TCO2 (Venous) 25 mmol/L (24-29); pCO2 (Venous) 57 mmHg (41-51); pH (Venous) 7.28 (7.31-7.41); pO2 (Venous) 30 mmHg
[2021-11-23] MEDS: HYDROmorphone 2 MG/ML VIAL 1 MG IVP (21:06)
[2021-11-23] MEDS: Normal Saline 1,000 ML 150 ML IV (21:06)
[2021-11-23 21:15] LABS: COVID-19 PCR Negative (Negative)
[2021-11-23 21:19] LABS: ALT 24 U/L (14-59); AST 30 U/L (15-37); Albumin 3.3 g/dL (3.4-5.0); Alkaline Phosphatase 98 U/L (46-116); Anion Gap 8.8 mmol/L (3-11); BUN 23 mg/dL (7-18); Bilirubin, Total 0.3 mg/dL (0.2-1.0); CO2 26.2 mmol/L (21.0-32.0); CREATININE 1.5 mg/dL (0.55-1.02); Calcium 9.7 mg/dL (8.5-10.1); Chloride 104 mmol/L (98-107); ETHANOL BLOOD < 3.0 mg/dL (<10); Estimated GFR 34.33 (mL/min/1.73m2); Glucose 238 mg/dL (74-106); Potassium 5.9 mmol/L (3.5-5.1); Sodium 139 mmol/L (136-145); TSH (W/Ref FT4) 2.25 uIU/mL (0.36-3.74); Total Protein 7.7 g/dL (6.4-8.2)
[2021-11-23 21:21] LABS: Magnesium 0.7 mg/dL (1.8-2.4)
[2021-11-23 21:21] LABS: Abs Immature Grans 0.05 10^3/uL (0.0-0.06); Absolute Basophil Count 0.06 10^3/uL (0.0-0.2); Absolute Eosinophil Count 0.35 10^3/uL (0.0-0.7); Absolute Lymphocyte Count 1.54 10^3/uL (1.2-3.4); Absolute Monocyte Count 0.55 10^3/uL (0.1-0.8); Basophils % 0.5; Eosinophils % 3.1; HGB 10.6 g/dL (11.2-15.7); Immature Grans % 0.4; Lymphocytes % 13.5; MCH 24.9 pg (27.0-33.0); MCHC 28.6 % (32.0-36.0); MCV 86.9 fL (80-95); MPV 10.1 fL (8.0-11.0); Monocytes % 4.8; Neutrophils % 77.7; Nucleated RBC 0 %; Platelet Count 174 10^3/uL (130-400); RBC 4.26 10^6/uL (3.93-5.22); RDW 15.7 % (11.7-14.6); RDW-SD 49.5 fL; WBC 11.38 10^3/uL (4.4-10.8)
[2021-11-23 21:23] LABS: Absolute Neutrophil Count 8.84 10^3/uL (1.2-6.7)
[2021-11-23] MEDS: Ondansetron 4 MG/2 ML VIAL IVP (21:29)
[2021-11-23 21:32] LABS: Bilirubin, Direct 0.1 mg/dL (0.0-0.2); Creatine Kinase 26 U/L (26-192); Lipase 43 U/L (73-393)
[2021-11-23 21:45] LABS: Bilirubin Negative (Negative); Blood Negative (Negative); Clarity Sl Cloudy (Clear); Glucose Negative (Negative); Ketones Negative (Negative); Leukocyte Esterase Negative (Negative); Nitrite Negative (Negative); Specific Gravity >= 1.030 (1.005-1.025); Urobilinogen 0.2 EU/dL (Up TO 0.2); pH 5.5 (5-8)
[2021-11-23 21:52] LABS: *AMPHETAMINES SCREEN URINE Negative (Negative); *BARBITURATES SCREEN URINE Negative (Negative); *BENZODIAZEPINES SCREEN URINE Negative (Negative); Cannabinoids THC Negative (Negative); Cocaine Screen,Urine Negative (Negative); METHADONE URINE SCREEN Negative (Negative); OPIATES URINE SCREEN Negative (Negative)
[2021-11-23 21:53] LABS: Tricyclic Antidepressants Negative (Negative)
[2021-11-23 22:03] LABS: Bacteria Few HPF (Negative); C & S Indicated? No; Casts 3-5 Hyaline LPF (Negative); Crystals Negative HPF (Negative); Epithelial Cells Many HPF (Negative); Mucus Trace (Negative); RBC 0-2 HPF (0-2); WBC 0-2 HPF (0-5)
--- NOTE | 2021-11-23 22:17 | DI.VRAD_ITS ---
PROCEDURE INFORMATION: Exam: CT Lumbar Spine Without Contrast Exam date and time: 11/23/2021 9:45 PM Age: 71 years old Clinical indication: Other: Reconstructions; Additional info: Lower back , please do reconstructions TECHNIQUE: Imaging protocol: Computed tomography images of the lumbar spine without contrast. Radiation optimization: All CT scans at this facility use at least one of these dose optimization techniques: automated exposure control; mA and/or kV adjustment per patient size (includes targeted exams where dose is matched to clinical indication); or iterative reconstruction. COMPARISON: CT THORACIC LUMBAR SPINE REC 11/04/2021 4:50 PM FINDINGS: Vertebrae: There is mild levocurvature at lumbar levels and vertebral body height is grossly intact throughout lumbar levels with no acute fractures or dislocations detected. Changes of facet arthropathy are most advanced at L3-L4, L4-L5 and L5-S1 with no acute fractures detected involving the posterior elements of the lumbar spine. Discs/Spinal canal/Neural foramina: Loss of disc space height and vacuum disc phenomena noted at the L1-L2 level. No large posterior disc extrusions or severe central canal stenosis detected on this noncontrast CT examination. Left foraminal distortion noted at L5-S1 related to asymmetric and advanced facet arthropathy. Soft tissues: Unremarkable. IMPRESSION: No acute lumbar fracture detected with left foraminal narrowing identified at L5-S1. Dictated and Authenticated by: Guanako Daniel MD. Ordering:KARL Hansen MD
--- NOTE | 2021-11-23 22:28 | DI.VRAD_ITS ---
PROCEDURE INFORMATION: Exam: CT Abdomen And Pelvis Without Contrast Exam date and time: 11/23/2021 9:45 PM Age: 71 years old Clinical indication: Other: Lower back and flank pain TECHNIQUE: Imaging protocol: Computed tomography of the abdomen and pelvis without contrast. Radiation optimization: All CT scans at this facility use at least one of these dose optimization techniques: automated exposure control; mA and/or kV adjustment per patient size (includes targeted exams where dose is matched to clinical indication); or iterative reconstruction. COMPARISON: CT CHEST PE ABD PELVIS W 11/04/2021 4:50 PM FINDINGS: Liver: No focal hepatic lesions detected. Gallbladder and bile ducts: Gallbladder is surgically absent. Pancreas: No pancreatic mass or ductal dilation. Spleen: No splenomegaly or splenic mass. Adrenal glands: Normal. No mass. Kidneys and ureters: No renal mass or hydronephrosis. Stomach and bowel: Right upper quadrant colostomy site is stable in appearance and there is no evidence of bowel obstruction or perforation. Appendix: No evidence of appendicitis. Intraperitoneal space: No pneumoperitoneum or free intraperitoneal fluid detected. Arteries: Unremarkable. No abdominal aortic aneurysm. Lymph nodes: No lymphadenopathy detected. Urinary bladder: Unremarkable as visualized. Reproductive: Heterogeneous uterine masses are unchanged since the recent comparison study and may represent fibroids. Bones/joints: Facet arthropathy again seen throughout mid to lower lumbar levels with no acute fractures detected at abdominopelvic levels. Soft tissues: Unremarkable. IMPRESSION: 1. Heterogeneous uterine masses are similar appearance and may represent uterine fibroids. MRI could provide additional diagnostic information. 2. Stable appearance of right upper quadrant colostomy with no evidence of bowel obstruction or perforation. Dictated and Authenticated by: Guanako Daniel MD. Ordering:KARL Hansen MD
[2021-11-23] MEDS: MAGNESIUM SULFATE 2 GM/50 ML BAG IVPB (22:37)
--- NOTE | 2021-11-23 23:04 | HPE_ITS ---
Date of service: 11/23/21 Time of Service: 23:04 Assessment and Plan Assessment and plan (1) Back pain: Status: Acute Assessment and plan: Chronic back pain, no specific etiology identified. I think that pain management will be the focus here, along with PT and presumably a course of Rehab. 1. LBP: prn analgesics, PT 2. Hyperkalemia: will recheck to make sure not pseudo. I don't know whether it m ay be possible she has been still taking the MIRNA? If true hyperkalemia will give dose of kayexlate. 3. Hypo mag: unknown etiology. has received in ER, will trend. 4. DM: will follow on Lantus plus SS Reveiwed ADs, daughter states patient is Full Code. 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 Initially thought o have UTI though cxx negative and antibiotics d/c'ed. There were discussions at the time about transfer to Rehab but patient declined. She was today found by daughter in chair complaining of ongoing back pain, unable to manage and is brought in for evaluation. Of note daughter states she has not been taking her Tramadol. Here in ER evaluation of note for absence of fever; white count of 11.3; K 5.9 (h/o chronic hyperkalemia, Lisinopril was held last visit), Mg 0.9 (h/o chronic hypomag of unknown etiology, ordered for Mg supplements); benign U/A; negative CT abdomen and pelvis and negative renal CT. patienbt given 1 mg Dilaudid and 2 gm MgSO4. I was asked to evaluate for admission. Patient states pain has resolved. Daughter notes patient is somewhat tired and confused since Dilaudid, but is agreeable to staying. 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 Leukocytosis. Intermittently febrile. Diverticulitis (Chronic) Recurrent. S/p high risk hemicolectomy in the setting of sepsis and hypotension 03/22/2013. Complication of a stomal leak resulting in an abdominal abscess. [place] [facility] emergently with sepsis syndrome and had an abdominal abscess drained. Completed rehab at [facility] with discharge most recently on after extensive dressing care of the abdominal wound with a wound VAC. Hepatitis C (Chronic) Recent negative viral count. Depression (Chronic) Vitamin D deficiency (Chronic) History of colostomy (Chronic) Medical History Anemia (05/03/13) Hemoglobin 8.2. Anemia Chronic kidney disease Depression Diabetes mellitus Diabetes mellitus type 2 On Metformin Essential hypertension Fall Gastroesophageal reflux disease GERD (gastroesophageal reflux disease) History of breast cancer History of hepatitis C History of incisional hernia History of renal failure Migraine Morbid obesity Osteopenia Vitamin D deficiency Surgical History Colectomy H/O mastectomy Hernia Repair, Incisional x2 S/P cholecystectomy Family History Mother No problems noted. Father No problems noted. Social History Smoking/Tobacco Use Status: Former Tobacco Use Smoking risk assessment performed?: Yes Alcohol Intake: never Drug use: Never Substance use type: does not use Do you feel safe at home: Yes Do you feel safe in your relationship?: Yes Meds Allergies and Home Medications Allergies Allergy/AdvReac Type Severity Reaction Status Date / Time epinephrine Allergy Severe chest Unverified 11/23/21 20:26 pain/heart attack Penicillins Allergy Intermediate rsh fever Unverified 11/23/21 20:26 banana [Banana] Allergy Unverified 11/23/21 20:26 NSAIDS (Non-Steroidal Allergy unkown Unverified 11/23/21 20:26 Anti-Inflamma Sulfa (Sulfonamide Allergy rash,fever Unverified 11/23/21 20:26 Antibiotics) Tetracyclines Allergy rash fever Unverified 11/23/21 20:26 sodium polystyrene sulfonate AdvReac Severe tachy/dyspn Unverified 11/23/21 20:26 [From Kayexalate] ea/rash Niacin Preparations AdvReac Intermediate flushing Unverified 11/23/21 20:26 Home Medications Medication Instructions Recorded Confirmed Type calcium carbonate 600 mg-vitamin 1 ea PO DAILY 05/10/13 11/23/21 History D3 10 mcg (400 unit) tablet (Calcium 600 + D(3)) simvastatin 40 mg tablet (Zocor) 40 mg PO HS 05/10/13 11/23/21 History tramadol 50 mg tablet 100 mg PO HS PRN 05/30/14 11/23/21 History insulin lispro 100 unit/mL 12 - 25 unit SUBCUT QAC 09/14/18 11/05/21 History subcutaneous pen (Humalog KwikPen (U-100) Insulin) albuterol sulfate 90 mcg/actuation 2 puff INHALATION Q4H 12/08/20 11/23/21 History aerosol inhaler (Ventolin HFA) aspirin 81 mg tablet 81 mg PO DAILY 12/08/20 11/23/21 History insulin glargine 100 unit/mL (3 56 unit SUBCUT BID 12/08/20 11/23/21 History mL) subcutaneous pen (Lantus Solostar U-100 Insulin) cholecalciferol (vitamin D3) 50 4,000 unit PO DAILY 11/05/21 11/23/21 History mcg (2,000 unit) tablet duloxetine 60 mg capsule,delayed 60 mg PO BID 11/05/21 11/23/21 History release glipizide 5 mg tablet 10 mg PO BID 11/05/21 11/05/21 History magnesium oxide 400 mg PO DAILY 11/05/21 11/05/21 History omeprazole 40 mg capsule,delayed 40 mg PO DAILY 11/05/21 11/23/21 History release pregabalin 50 mg capsule 50 mg PO TID 11/05/21 11/23/21 History metoprolol succinate 25 mg 25 mg PO DAILY #30 tab 11/09/21 11/23/21 Rx tablet,extended release 24 hr Exam Narrative Exam Narrative: 143/72, 113, 36.5, 20, 96% 2L NC. HEENT atraumatic; neck supple; lungs clear; heart tachy/regular; abdomen soft and NT, colostomy patent, confluent areas of echymosis lower abdomen left>right; extremities w/o edema; neuro awake but sleepy, moves all4s, able to have semi coherent conversation Results Labs Result diagrams: 11/23/21 21:00 11/23/21 20:46 Labs: Laboratory Results - last 24 hr 11/23/21 11/23/21 11/23/21 20:20 20:46 20:46 WBC RBC Hgb Hct MCV MCH MCHC RDW Plt Count MPV Immature Gran % Neutrophils % Lymphocytes % Monocytes % Eosinophils % Basophils % Nucleated RBC % Absolute Neutrophils Absolute Lymphocytes Absolute Monocytes Absolute Eosinophils Absolute Basophils VBG pH 7.28 L VBG pCO2 57 H VBG pO2 30 VBG HCO3 27 VBG Total CO2 25 VBG O2 Saturation 49 VBG Base Excess 0 Sodium 139 Potassium 5.9 H Chloride 104 Carbon Dioxide 26.2 Anion Gap 8.8 BUN 23 H Creatinine 1.5 H Estimated GFR/1.73 m2 34.33 Glucose 238 H Calcium 9.7 Magnesium 0.7 L Total Bilirubin 0.3 Conjugated Bilirubin 0.1 AST 30 ALT 24 Alkaline Phosphatase 98 Creatine Kinase 26 Total Protein 7.7 Albumin 3.3 L Lipase 43 TSH 2.25 Urine Color Urine Clarity Urine pH Ur Specific Alton Urine Protein Urine Ketones Urine Blood Urine Nitrite Urine Bilirubin Urine Urobilinogen Ur Leukocyte Esterase Urine RBC Urine WBC Ur Epithelial Cells Urine Crystals Urine Bacteria Urine Casts Urine Mucus Ur Culture Indicated? Urine Glucose Urine Opiates Screen Urine Methadone Screen Ur Barbiturates Screen Ur Tricyclics Screen Ur Amphetamines Screen U Benzodiazepines Scrn Urine Cocaine Screen Ur THC Screen Ethyl Alcohol < 3.0 COVID-19 Source Nasal/Nares SARS-CoV-2 (PCR) Negative 11/23/21 11/23/21 11/23/21 21:00 21:10 21:10 WBC 11.38 H RBC 4.26 Hgb 10.6 L Hct 37.0 MCV 86.9 MCH 24.9 L MCHC 28.6 L RDW 15.7 H Plt Count 174 MPV 10.1 Immature Gran % 0.4 Neutrophils % 77.7 Lymphocytes % 13.5 Monocytes % 4.8 Eosinophils % 3.1 Basophils % 0.5 Nucleated RBC % 0 Absolute Neutrophils 8.84 H Absolute Lymphocytes 1.54 Absolute Monocytes 0.55 Absolute Eosinophils 0.35 Absolute Basophils 0.06 VBG pH VBG pCO2 VBG pO2 VBG HCO3 VBG Total CO2 VBG O2 Saturation VBG Base Excess Sodium Potassium Chloride Carbon Dioxide Anion Gap BUN Creatinine Estimated GFR/1.73 m2 Glucose Calcium Magnesium Total Bilirubin Conjugated Bilirubin AST ALT Alkaline Phosphatase Creatine Kinase Total Protein Albumin Lipase TSH Urine Color Yellow Urine Clarity Sl Cloudy Urine pH 5.5 Ur Specific Alton >= 1.030 H Urine Protein 30 H Urine Ketones Negative Urine Blood Negative Urine Nitrite Negative Urine Bilirubin Negative Urine Urobilinogen 0.2 Ur Leukocyte Esterase Negative Urine RBC 0-2 Urine WBC 0-2 Ur Epithelial Cells Many Urine Crystals Negative Urine Bacteria Few Urine Casts 3-5 Hyaline Urine Mucus Trace Ur Culture Indicated? No Urine Glucose Negative Urine Opiates Screen Negative Urine Methadone Screen Negative Ur Barbiturates Screen Negative Ur Tricyclics Screen Negative Ur Amphetamines Screen Negative U Benzodiazepines Scrn Negative Urine Cocaine Screen Negative Ur THC Screen Negative Ethyl Alcohol COVID-19 Source SARS-CoV-2 (PCR) Last Vital Signs Temp 36.5 C 11/23/21 20:13 Pulse 113 H 11/23/21 20:13 Resp 20 11/23/21 20:19 BP 143/72 H 11/23/21 20:13 Pulse Ox 96 11/23/21 22:40
[2021-11-23 23:55] LABS: Potassium 5.9 mmol/L (3.5-5.1)
[2021-11-24] VITALS (19 sets, daily range): BP systolic 98–155; BP diastolic 51–88; PULSE 92–114; RESP 16–24; TEMP 36.3–37.3; O2SAT 94–100
[2021-11-24] MEDS: Albuterol HFA 8 GM 60 PUFF INH IH ×6 (01:17→21:20)
[2021-11-24] MEDS: Enoxaparin 40 MG/0.4 ML SYR SC (05:36)
[2021-11-24 06:54] LABS: BUN 23 mg/dL (7-18); CREATININE 1.4 mg/dL (0.55-1.02); Calcium 8.7 mg/dL (8.5-10.1); Chloride 107 mmol/L (98-107); Estimated GFR 37.18 (mL/min/1.73m2); Glucose 161 mg/dL (74-106); Magnesium 1.2 mg/dL (1.8-2.4); Potassium 4.9 mmol/L (3.5-5.1); Sodium 139 mmol/L (136-145)
[2021-11-24 07:24] LABS: Platelet Count 111 10^3/uL (130-400)
[2021-11-24] MEDS: MAGNESIUM SULFATE 2 GM/50 ML BAG IVPB (10:08)
[2021-11-24] MEDS: Insulin Glargine 300 UNITS/3 ML PEN 25 UNITS SC ×2 (10:08→21:22)
[2021-11-24] MEDS: Insulin Aspart 300 UNITS/3 ML PEN SC ×3 (10:08→17:33)
[2021-11-24] MEDS: Calcium 600mg/Vit D 200U TAB 1 TAB PO (10:09)
[2021-11-24] MEDS: Magnesium Oxide 400 MG TAB PO ×2 (10:09→21:18)
[2021-11-24] MEDS: Aspirin 81 MG CHEW PO (10:09)
[2021-11-24] MEDS: Metoprolol CR 25 MG TABCR PO (10:10)
[2021-11-24] MEDS: DULoxetine 30 MG CAP 60 MG PO ×2 (10:10→21:18)
[2021-11-24] MEDS: Cholecalciferol (Vitamin D3) 1,000 UNIT TAB 4000 UNITS PO (10:10)
[2021-11-24] MEDS: Pregabalin 50 MG CAP PO ×3 (10:10→21:18)
[2021-11-24] MEDS: Omeprazole 20 MG CAPCR 40 MG PO (10:10)
--- NOTE | 2021-11-24 10:43 | INITIAL_ITS ---
- If Service Date Differs Date of service: 11/24/21 Time of Service: 10:43 Care Management Initial Assess REASON FOR HOSPITALIZATION:: Back pain PAST MEDICAL HISTORY/PAST SURGICAL HISTORY:: All Active Problems . Back pain (Acute). Morbid obesity (Chronic). Hyperlipidemia (Chronic). 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 Worsening ulceration of a peristomal fistula that appears to be expanding in size. Leukocytosis. Intermittently febrile. Diverticulitis (Chronic). Recurrent. S/p high risk hemicolectomy in the setting of sepsis and hypotension 03/22/2013. Complication of a stomal leak resulting in an abdominal abscess. Readmitted to [facility] [place] 05/03[place]13 emergently with sepsis syndrome and had an abdominal abscess drained. Completed rehab at [facility] with discharge most recently on after extensive dressing care of the abdominal wound with a wound VAC. Hepatitis C (Chronic). Recent negative viral count. Depression (Chronic). Vitamin D deficiency (Chronic). History of colostomy (Chronic). Medical History . Anemia (05/03/13). Hemoglobin 8.2. Anemia. Chronic kidney disease. Depression. Diabetes mellitus. Diabetes mellitus type 2. On Metformin. Essential hypertension. Fall. Gastroesophageal reflux disease. GERD (gastroesophageal reflux disease). History of breast cancer. History of hepatitis C. History of incisional hernia. History of renal failure. Migraine. Morbid obesity. Osteopenia. Vitamin D deficiency. Surgical History . Colectomy. H/O mastectomy. Hernia Repair, Incisional. x2. S/P cholecystectomy PREVIOUS FUNCTIONAL STATUS/SOCIAL/FAMILY SUPPORTS:: Raven lives in [facility] with her boyfriend Rodolfo. She has three daughters who live locally. Raven uses an electric wheelchair for mobility and also has a FWW but walks very little, if at all. She has support from family and friends and has been receiving home health services for the past 2 weeks. CURRENT FUNCTIONAL STATUS:: DIALLO was asked to meet with Raven's family along with provider Leonie Rodriguez. A meeting was held in the visitors room and Raven's daughters Whitney (via phone) and Marcia participated. The discussion focused on the need, as identified by the family, for Raven to go to rehab. They verbalized feeling she is not safe to be at home and was found in urine soaked clothing yestrerday. They informed CM and SPECIAL SERVICES COORDINATOR that home health had been ordered after her last admission but was never initiated. (Raven was hospitalized from 11/04-11/09 at [facility].) During that admission Raven was encouraged to go to rehab but refused. Upon investigation, it was determined that HH had been initiated on 11/10/21 and had made a total of 6 visits. After a discussion with the family, the SPECIAL SERVICES COORDINATOR and CM met with Raven and suggested that she would benefit from short term rehab. Raven agreed to have referrals sent as well as to have a Palliative Care consult. She had a 3 night qualifying stay in October and has a [employer] MCR replacement plan as well as community Medicaid. ADVANCE DIRECTIVES:: none on file Has patient been provided with info about the portal/API?: Yes Did the patient sign up for the portal?: No CODE STATUS:: Full Code INSURANCE COVERAGE / FINANCIAL ISSUES:: [employer] Medicare Replacement Plan. Medicaid CURRENT HOME/COMMUNITY SERVICES/EQUIPMENT:: FWW. [facility] nursing, PT and OT PRIMARY CARE PHYSICIAN:: Mary Ann Luo POTENTIAL DISCHARGE NEEDS:: Follow up with PCP and plan of care PATIENT/FAMILY EDUCATION NEEDS:: Review discharge instructions regarding activity levels and medications, discussion of self care needs including ask me three. TRANSPORTATION:: via private vehicle PLAN:: Raven will likely be transferred to a nursing home facility for short term rehab prior to returning home. Referrals have been sent to [facility] and [facility]. She will follow up with the facility providers and plan of care and transport via w/c van. CM will continue to support Raven and assess for ongoing discharge considerations.
--- NOTE | 2021-11-24 10:54 | IN_ITS ---
Date of service: 11/24/21 Time of Service: 10:54 PT Notes Visit Reasons: Back Pain Physical Therapy Inpatient Initial Evaluation Date: 11/24/2021 Referring Doctor: Angel Luis Ford MD PT Orders: PT CONSULT: Chronic back pain Precautions: Fall. Standard. Activity as tolerated. Patient Profile/Admitting Diagnosis: Raven is a 71-year-old female who presented to the ED on 11/23/2021 due to exacerbation of low back pain and generalized weakness. Patient is diagnosed with exacerbation of low back pain, hyperkalemia, and hypomagnesemia. PMHX: All Active Problems? 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 Leukocytosis.? Intermittently febrile. Diverticulitis (Chronic) Recurrent.? S/p high risk hemicolectomy in the setting of sepsis and hypotension 03/22/2013. Complication of a stomal leak resulting in an abdominal abscess.? [place] [facility] with sepsis syndrome and had an abdominal abscess drained. ? Completed rehab at [facility] with discharge most recently on after extensive dressing care of the abdominal wound with a wound VAC.Hepatitis C (Chronic) Recent negative viral count.Depression (Chronic) Vitamin D deficiency (Chronic) History of colostomy (Chronic) Medical History? Anemia (05/03/13) Hemoglobin 8.2.Anemia Chronic kidney disease Depression Diabetes mellitus Diabetes mellitus type 2 On MetforminEssential hypertension Fall Gastroesophageal reflux disease GERD (gastroesophageal reflux disease) History of breast cancer History of hepatitis C History of incisional hernia History of renal failure Migraine Morbid obesity Osteopenia Vitamin D deficiency Surgical History? Colectomy H/O mastectomy Hernia Repair, Incisional x2 S/P cholecystectomy Social History/Home Situation: Lives with significant other in a mobile home with a ramp to enter and alternate 3 steps to enter.? Requires assistance from significant other for all transfers using walker.? Short distance ambulation only prior to admission. Equipment Owned/DME: Front-wheeled walker, wheelchair Subjective: Agreeable to PT consult. Complains of back pain at rest and is aggravated by a ctivity as well as weight bearing.? States that she has had 3 falls in the past year. Objective: General Observation: Supine in bed.? Colostomy bag in place.? High BMI.? Randle catheter in place.? Mental Status: Alert and oriented as to person, place, time, and purpose. Able to pay attention, focus, and respond appropriately. Pain: /10 in back Vital Signs: Within normal limits as closely monitored by nursing staff ROM: Right Upper Extremity: ? Shoulder Flexion lacks 50% of AROM. Shoulder abduction lacks 50% of AROM. Elbow flexion WFL. Wrist flexion WFL. Functional opening and closing of hand WFL. Left Upper Extremity:? Shoulder Flexion lacks 50% of AROM. Shoulder abduction lacks 50% of AROM. Elbow flexion WFL. Wrist flexion WFL. Functional opening and closing of hand WFL. Right Lower Extremity: Hip flexion unable beyond 90 while seated at edge of bed Hip abduction 10 degrees. Knee flexion 0 to 90 degrees. Ankle dorsiflexion to neutral only. Ankle plantarflexion WFL. Left Lower Extremity: Hip flexion unable beyond 90 while seated at edge of bed Hip abduction 10 degrees. Knee flexion 0 to 90 degrees. Ankle dorsiflexion to neutral only. Ankle plantarflexion WFL. Strength: Right Upper Extremity: Shoulder flexors 3-/5. Shoulder abductors 3-/5. Elbow flexors 3-/5. Elbow extensors 3-/5. Garment Presser strong. Left Upper Extremity: Shoulder flexors 3-/5. Shoulder abductors 3-/5. Elbow flexors 3-/5. Elbow extensors 3-/5. Garment Presser strong. Right Lower Extremity: Hip flexors 3-/5. Hip abductors 3-/5. Knee flexors 3-/5. Knee extensor 3-/5. Ankle dorsiflexors 3-/5. Ankle plantarflexors 4-/5. Left Lower Extremity: Hip flexors 3-/5. Hip abductors 3-/5. Knee flexors 3-/5. Knee extensor 3-/5. Ankle dorsiflexors 3-/5. Ankle plantarflexors 4-/5. Bed Mobility/Transfers: Rolling with moderate assist of 2 with cues for safe/correct technique Sit to stand with minimal assist of 2 with minimal cues for safe/correct technique Stand to sit with minimal assist of 2 with minimal cues for safe/correct te chnique Bed to reclining chair with contact guard assist of 2 with minimalcues for safe/correct technique Gait: Tolerated 8 steps using bariatric front wheeled walker with full weight bearing on B LE requiring minimal assist of 2.? Patient complains of fatigue and weakness in BLE as well as mild shortness of breath.? Base of support wide but with no loss of balance seen.? Decreased alexis. Pain in back at 7/10 Balance: Static Sitting: Good Dynamic Sitting: Fair Static Standing: Poor Dynamic Standing: Poor Special Tests: Mobility Limitations Standardized Measure [facility] AM-PAC 6 clicks Basic Mobility Inpatient Short Form: Raw Score: 14 CMS Score: 61% deficit? ? ? Informed Consent/Education:? Patient was instructed in purpose of PT consult and plan of care. Agreeable to sarah cota with established PT POC to achieve personal goals. ASSESSMENT: Ambulatory dysfunction, limited functional mobility, decrease fall risk, and ADL dependence resulting from exacerbation of low back pain, high BMI, and comorbid conditions as above. Limited ability of significant other to help due to own mobility issues. Patient presents with clinical signs and symptoms consistent with curren t/admitting diagnoses that have resulted to mobility limitations, gait instability, generalized weakness, and overall ADL decline as demonstrated by the following impairment level findings: 1.? Decreased strength to B LE major muscle groups 2.? Impaired sitting/standing balance 3.? Impaired activity tolerance 4.? Limitation of joint range of motion in back and B UE/LE 5.? Shortness of breath 6.? Low back pain Impairments are contributing to the following functional limitations: 1.? Decline in bed mobility skills 2.? Decline in transfer skills 3.? Difficulty with ambulation without assistive device and physical assistance 4.? Increased completion time for mobility ADL performance 5.? Increased risk for falls 6.? Difficulty with managing steps alone safely Patient is assessed as a 07261 high complexity based on the following: History: 71-year-old femalewith past medical history as indicated above Examination: Demonstrable impairment in strength, balance, and mobility level with underlying impairments and functional limitations as exhibited above as well as deficit score of 69% utilizing the [facility] Mobility Inpatient Short Form Presentation: Evolving Decision Makin high complexity Goals: Goals X1 week 1. Supine-Sit independent 2. Sit-Supine independent 3. Sit-Stand standby assist 4. Stand-Sit with standby assist with bariatric FWW 5. Bed-Chair standby assist with bariatric FWW 6. Chair-Bed standby assist with bariatric FWW 7. Standby assist with bariatric FWW for gait on level surface with use of FWW for at least 30 feet without report of pain nor dyspnea 8. Good static and dynamic standing balance/tolerance Plan of Care/Treatment Plan: 1-2x/day, 7 days/week x 1 week. Plan of care has been reviewed with the MARKET MANAGER providing the service under Physical Therapy direction. Initiate Physical Therapy intervention for pain management as needed, strengthening, bed mobility, transfers, gait, stairs, balance training, and use of assistive device. DISCHARGE RECOMMENDATIONS: [] ? Home with no services [] [] ? Home with services [specify] [] ? Home with outpatient PT [] [X] ? SNF for continued rehabilitation.? Patient will benefit from fdc facility placement for continued skilled physical therapy services in order to progress mobility level, strength, and balance in preparation for a safe discharge to home. [] ? Market Research Consultant Care [] [] ? SNF versus LTC based on ability to participate and progress [] TREATMENT CODE/TIME: 55121? x 20 minutes, 57921 x 17 minutes beginning at 10:54 AM. Thank you for the opportunity to participate in the care of this patient. Selene Collado PT, DPT, CLT [facility] [place], [place]
--- NOTE | 2021-11-24 11:12 | CHAPLAIN ---
Raven was stilling up in bed when I visited. She told me she came in last night and her daughter brought her in. We had a brief visit. I will continue to visit.
[2021-11-24] MEDS: Nystatin POWDER 60 GM JAR TP ×2 (14:02→21:41)
--- NOTE | 2021-11-24 14:43 | W.PM.PROGNOT ---
Date of Service Date of service: 11/24/21 Time of Service: 14:43 Assessment and Plan Assessment and plan (1) Back pain: Status: Acute Assessment and plan: better managed today will schedule apap, add lidocaine patch (2) Morbid obesity: Status: Chronic Assessment and plan: BMI 57 nutrition consult (3) Diabetes mellitus type 2: Status: Acute Assessment and plan: A1C in October 2021 was 8.9 continue diabetic diet, blood sugar checks ac/hs with coverage as needed. glipizide on hold while hospitalized 1/2 dose of lantus bid while hospitalized, adjust as needed. (4) Depression: Status: Chronic Assessment and plan: continue home medication, (5) Essential hypertension: Status: Acute Assessment and plan: blood pressure stable, (6) Chronic kidney disease: Status: Chronic Assessment and plan: creatinine stable and at baseline 1.4 avoid nephrotoxic drugs, renal dosing as needed. renal CT: ABDOMEN: Lung Bases: Respiratory motion.? Heart enlarged. Liver: Mild fatty infiltration..? No measurable mass. Gallbladder and biliary tract: Status post cholecystectomy.? No radiodense calculus or dilation. Pancreas: Normal density, no calcifications or inflammatory process. Spleen: Normal. Kidneys: Cyst upper pole left kidney.? No change lobulated contour of the right kidney..? No radiodense stones or obstructive uropathy. No masses seen. Adrenal glands: No masses seen. Abdominal Aorta: Abdominal portion non-dilated. Mild atherosclerotic changes. 4.8 centimeter area of calcification superior to the stomach and lateral to the liver likely represents an area of fat necrosis.? It which was visible on 2013 exam but was uncalcified at that time. Soft tissues: Right-sided ostomy, unchanged. PELVIS:? Bladder: Symmetric distention, no gross wall thickening. Bowel: No obstruction or bowel wall thickening. Peritoneal cavity: No ascites, collection or mesenteric inflammatory response. Reproductive: 8.5 by 8.7 centimeter cystic mass with septation likely originating from the left? ovary.? This is increased in size when compared with the previous exam.? Heterogeneous uterus could indicate versus endometrial abnormality . Enlargement versus cyst of the right ovary.. Bones: CT lumbar spine: Mild levoscoliosis no compression fracture.? Degenerative disc changes? are noted greater in the lower thoracic and upper lumbar levels..? ? Facet degenerative changes are prominent in the lower lumbar region.? Bones appear osteoporotic.? No gross lytic or blastic lesions. IMPRESSION: 1.? Interval increase in size of left ovarian cystic mass with septation, suspicious for neoplasm. 2.? Heterogeneous lesions within the uterus, better seen on previous exam.? Malignancy not excluded. 3.? No acute abnormality of the lumbar spine.? Degenerative changes and mild scoliosis. (7) Mass of left ovary: Status: Acute Assessment and plan: suspicious for neoplasm will obtain MRI to better characterized. will need obstetrics gyn physician referral. palliative care consult (8) DVT prophylaxis: Status: Acute Assessment and plan: enoxaparin daily (9) Discharge planning issues: Status: Acute Assessment and plan: PT consulted and anticipate a discharge to rehabilitation prior to returning home discharge discussed with Dr Iqbal Subjective Subjective Interval history since last seen: working with PT and has been reambulated. patient is oriented and alert but not giving consistent history (stated that home health was not going in but apparently have gone in about 7 times. when asked she reported they were actually coming in and working with her afterall. Exam Const General: no acute distress, disheveled (older than stated age), frail appearing and ill appearing chronically Nutritional Appearance: obese Orientation: alert, awake and oriented x3 HENMT Head: normal to inspection, normocephalic and atraumatic Mouth: oral mucosae normal Resp Effort & Inspection: normal respiratory effort Cardio Rate: regular rate Rhythm: regular rhythm GI Inspection: large pannus and obesity Skin Rashes: rashes noted (fungal, skin folds) Neuro General: patient alert and patient awake Extrem General: edema Psych Appearance: disheveled Mental Status: other (withdrawn) Mood: other (withdrawn) Affect: blunted Attitude: avoids eye contact Insight: limited Judgment: limited Objective Last Vital Signs Temp 37.3 C 11/24/21 11:43 Pulse 102 H 11/24/21 11:43 Resp 20 11/24/21 11:43 BP 101/71 11/24/21 11:43 Pulse Ox 96 11/24/21 11:43 Laboratory Results - last 24 hr 11/23/21 11/23/21 11/23/21 20:20 20:46 20:46 WBC RBC Hgb Hct MCV MCH MCHC RDW Plt Count MPV Immature Gran % Neutrophils % Lymphocytes % Monocytes % Eosinophils % Basophils % Nucleated RBC % Absolute Neutrophils Absolute Lymphocytes Absolute Monocytes Absolute Eosinophils Absolute Basophils VBG pH 7.28 L VBG pCO2 57 H VBG pO2 30 VBG HCO3 27 VBG Total CO2 25 VBG O2 Saturation 49 VBG Base Excess 0 Sodium 139 Potassium 5.9 H Chloride 104 Carbon Dioxide 26.2 Anion Gap 8.8 BUN 23 H Creatinine 1.5 H Estimated GFR/1.73 m2 34.33 Glucose 238 H Calcium 9.7 Magnesium 0.7 L Total Bilirubin 0.3 Conjugated Bilirubin 0.1 AST 30 ALT 24 Alkaline Phosphatase 98 Creatine Kinase 26 Total Protein 7.7 Albumin 3.3 L Lipase 43 TSH 2.25 Urine Color Urine Clarity Urine pH Ur Specific [place] Urine Protein Urine Ketones Urine Blood Urine Nitrite Urine Bilirubin Urine Urobilinogen Ur Leukocyte Esterase Urine RBC Urine WBC Ur Epithelial Cells Urine Crystals Urine Bacteria Urine Casts Urine Mucus Ur Culture Indicated? Urine Glucose Urine Opiates Screen Urine Methadone Screen Ur Barbiturates Screen Ur Tricyclics Screen Ur Amphetamines Screen U Benzodiazepines Scrn Urine Cocaine Screen Ur THC Screen Ethyl Alcohol < 3.0 COVID-19 Source Nasal/Nares SARS-CoV-2 (PCR) Negative 11/23/21 11/23/21 11/23/21 21:00 21:10 21:10 WBC 11.38 H RBC 4.26 Hgb 10.6 L Hct 37.0 MCV 86.9 MCH 24.9 L MCHC 28.6 L RDW 15.7 H Plt Count 174 MPV 10.1 Immature Gran % 0.4 Neutrophils % 77.7 Lymphocytes % 13.5 Monocytes % 4.8 Eosinophils % 3.1 Basophils % 0.5 Nucleated RBC % 0 Absolute Neutrophils 8.84 H Absolute Lymphocytes 1.54 Absolute Monocytes 0.55 Absolute Eosinophils 0.35 Absolute Basophils 0.06 VBG pH VBG pCO2 VBG pO2 VBG HCO3 VBG Total CO2 VBG O2 Saturation VBG Base Excess Sodium Potassium Chloride Carbon Dioxide Anion Gap BUN Creatinine Estimated GFR/1.73 m2 Glucose Calcium Magnesium Total Bilirubin Conjugated Bilirubin AST ALT Alkaline Phosphatase Creatine Kinase Total Protein Albumin Lipase TSH Urine Color Yellow Urine Clarity Sl Cloudy Urine pH 5.5 Ur Specific [place] >= 1.030 H Urine Protein 30 H Urine Ketones Negative Urine Blood Negative Urine Nitrite Negative Urine Bilirubin Negative Urine Urobilinogen 0.2 Ur Leukocyte Esterase Negative Urine RBC 0-2 Urine WBC 0-2 Ur Epithelial Cells Many Urine Crystals Negative Urine Bacteria Few Urine Casts 3-5 Hyaline Urine Mucus Trace Ur Culture Indicated? No Urine Glucose Negative Urine Opiates Screen Negative Urine Methadone Screen Negative Ur Barbiturates Screen Negative Ur Tricyclics Screen Negative Ur Amphetamines Screen Negative U Benzodiazepines Scrn Negative Urine Cocaine Screen Negative Ur THC Screen Negative Ethyl Alcohol COVID-19 Source SARS-CoV-2 (PCR) 11/23/21 11/24/21 11/24/21 23:45 06:35 06:35 WBC RBC Hgb Hct MCV MCH MCHC RDW Plt Count 111 L MPV Immature Gran % Neutrophils % Lymphocytes % Monocytes % Eosinophils % Basophils % Nucleated RBC % Absolute Neutrophils Absolute Lymphocytes Absolute Monocytes Absolute Eosinophils Absolute Basophils VBG pH VBG pCO2 VBG pO2 VBG HCO3 VBG Total CO2 VBG O2 Saturation VBG Base Excess Sodium 139 Potassium 5.9 H 4.9 Chloride 107 Carbon Dioxide 22.0 Anion Gap 10.0 BUN 23 H Creatinine 1.4 H Estimated GFR/1.73 m2 37.18 Glucose 161 H D Calcium 8.7 Magnesium 1.2 L Total Bilirubin Conjugated Bilirubin AST ALT Alkaline Phosphatase Creatine Kinase Total Protein Albumin Lipase TSH Urine Color Urine Clarity Urine pH Ur Specific [place] Urine Protein Urine Ketones Urine Blood Urine Nitrite Urine Bilirubin Urine Urobilinogen Ur Leukocyte Esterase Urine RBC Urine WBC Ur Epithelial Cells Urine Crystals Urine Bacteria Urine Casts Urine Mucus Ur Culture Indicated? Urine Glucose Urine Opiates Screen Urine Methadone Screen Ur Barbiturates Screen Ur Tricyclics Screen Ur Amphetamines Screen U Benzodiazepines Scrn Urine Cocaine Screen Ur THC Screen Ethyl Alcohol COVID-19 Source SARS-CoV-2 (PCR)
--- NOTE | 2021-11-24 14:44 | PT.INTREAT ---
Date of service: 11/24/21 Time of Service: 14:08 PT Notes Visit Reasons: Back Pain Inpatient Physical Therapy Treatment Note [facility] Date: 11/24/2021 PRECAUTIONS: Fall, LBP SUBJECTIVE: Raven is pleasant and agreeable to participating in PT. She states that she does not walk much or move much at home. Her daughter is present during the session, she states that she only transfers from recliner where she lives to her commode and back. Raven is reporting that she would like to go to rehab to work on improving her strength and activity tolerance. OBJECTIVE: PAIN: Patient c/o unspecified LBP pain with gait training, transfers and bed mobility. BED MOBILITY/TRANSFERS Rolling L/R: Instructed patient in log rolling technique, patient did not attempt Supine-sit: SBA with HOB at 20 degrees Sit-supine: CGA with HOB flat Sit-stand: SBA Stand-sit: SBA GAIT Assistive Device: FWW Weight bearing: Full Assist: CGA Distance: 12' Deviation: SOB, increased fatigue, wide DIPESH, c/o LBP THEREX: Patient completes weight shifting exercises as well as functional [id number] exercise, as per flow sheet. ASSESSMENT: Patient tolerated session with complaint of SOB, increased fatigue, and LBP with all activity. She demonstrates severe deconditioning and global weakness. PLAN: Continue global strengthening and general conditioning for improved activity tolerance and mobility. TREATMENT CODE/TIME: 26 minutes; 25267 x2 (14:08)
[2021-11-24] MEDS: Acetaminophen 325 MG TAB 650 MG PO ×2 (17:20→21:17)
[2021-11-24] MEDS: Lidocaine 5% Patch 2 PATCH TP (17:21)
[2021-11-24] MEDS: Simvastatin 40 MG TAB PO (21:18)
[2021-11-25] VITALS (8 sets, daily range): BP systolic 97–140; BP diastolic 57–77; PULSE 79–100; RESP 20–24; TEMP 36.2–37; O2SAT 90–94
[2021-11-25] MEDS: Albuterol HFA 8 GM 60 PUFF INH IH ×3 (02:10→09:13)
[2021-11-25] MEDS: Enoxaparin 40 MG/0.4 ML SYR SC (05:49)
[2021-11-25 07:44] LABS: Abs Immature Grans 0.04 10^3/uL (0.0-0.06); Absolute Basophil Count 0.04 10^3/uL (0.0-0.2); Absolute Eosinophil Count 0.39 10^3/uL (0.0-0.7); Absolute Lymphocyte Count 2.02 10^3/uL (1.2-3.4); Absolute Monocyte Count 0.64 10^3/uL (0.1-0.8); Absolute Neutrophil Count 5.88 10^3/uL (1.2-6.7); Basophils % 0.4; Eosinophils % 4.3; HCT 31.9 % (36.0-46.0); HGB 9.1 g/dL (11.2-15.7); Immature Grans % 0.4; Lymphocytes % 22.4; MCH 25.1 pg (27.0-33.0); MCHC 28.5 % (32.0-36.0); MCV 87.9 fL (80-95); MPV 10.1 fL (8.0-11.0); Monocytes % 7.1; Neutrophils % 65.4; Nucleated RBC 0 %; Platelet Count 138 10^3/uL (130-400); RBC 3.63 10^6/uL (3.93-5.22); RDW 15.7 % (11.7-14.6); RDW-SD 50.3 fL; WBC 9.01 10^3/uL (4.4-10.8)
[2021-11-25 07:52] LABS: Anion Gap 8.2 mmol/L (3-11); BUN 26 mg/dL (7-18); CO2 26.8 mmol/L (21.0-32.0); CREATININE 1.7 mg/dL (0.55-1.02); Chloride 106 mmol/L (98-107); Estimated GFR 29.71 (mL/min/1.73m2); Glucose 156 mg/dL (74-106); Sodium 141 mmol/L (136-145)
[2021-11-25] MEDS: Insulin Aspart 300 UNITS/3 ML PEN SC ×3 (07:58→16:56)
[2021-11-25 08:06] LABS: Magnesium 1.4 mg/dL (1.8-2.4)
[2021-11-25] MEDS: Acetaminophen 325 MG TAB 650 MG PO ×4 (09:13→19:49)
[2021-11-25] MEDS: Calcium 600mg/Vit D 200U TAB 1 TAB PO (09:13)
[2021-11-25] MEDS: Aspirin 81 MG CHEW PO (09:13)
[2021-11-25] MEDS: Cholecalciferol (Vitamin D3) 1,000 UNIT TAB 4000 UNITS PO (09:14)
[2021-11-25] MEDS: Insulin Glargine 300 UNITS/3 ML PEN 25 UNITS SC ×2 (09:14→21:59)
[2021-11-25] MEDS: DULoxetine 30 MG CAP 60 MG PO ×2 (09:14→19:50)
[2021-11-25] MEDS: Metoprolol CR 25 MG TABCR PO (09:15)
[2021-11-25] MEDS: Pregabalin 50 MG CAP PO ×3 (09:15→19:50)
[2021-11-25] MEDS: MAGNESIUM SULFATE 2 GM/50 ML BAG IVPB (09:15)
[2021-11-25] MEDS: Magnesium Oxide 400 MG TAB PO ×2 (09:15→19:50)
[2021-11-25] MEDS: Nystatin POWDER 60 GM JAR TP ×3 (09:16→21:35)
--- NOTE | 2021-11-25 09:37 | CMPROGNOTE_ITS ---
- If Service Date Differs Date of service: 11/25/21 Time of Service: 09:37 Care Management Progress Note S/O:Raven was sitting up in a chair when CM met with her. She was open to conversation and interacted well with CM. CM reminded Raven about the conversation yesterday regarding rehab and inquired if she remembered the discussion. Raven responded that she did but informed CM that she felt that she would [place] go to [facility]. CM explained that [facility] [place] not a [place]hab hospital but Raven indicated that she was concerned about the growth on my liver that was discussed. CM clarified that it was a cyst on her ovary, not her liver and that her provider planned to do an MRI for further clarification. Raven worked with PT this morning and did very well. She was able to ambulate to the door and into the hallway with her walker. She appeared pleased with her progress. Referrals were sent to [facility] and the [facility] and are currently under review. A: Raven is a 71 year old woman admitted on 11/23/21 with back pain P:Raven will likely be transferred to a fpc facility for short term rehab prior to returning home. Referrals have been sent to [facility] and the [facility]. She will follow up with the facility providers and plan of care and transport via w/c van. CM will continue to support Raven and assess for ongoing discharge considerations.
--- NOTE | 2021-11-25 09:57 | OTIE_ITS ---
Occupational Therapy Notes Inpatient Occupational Therapy Evaluation Date: 11/25/21 Referring Doctor:Michael Iqbal MD OT Orders: Non Urgent Precautions: Fall, standard, Full PATIENT PROFILE/ADMITTING DIAGNOSIS: Pt is a 71 year old female who was admitted to [facility] for the following dx of mass of (L) ovary, chronic kidney disease, essential HTN, DM II, back pain, morbid obesity, hyperlipidemia, entercutaneous fistula, diverticulitis, hepatitis C, depression, Vit D deficiency. She presented to the ED with exacerbated back pain and generalized weakness. Past Medical History: All Active Problems? 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 Leukocytosis.? Intermittently febrile. Diverticulitis (Chronic) Recurrent.? S/p high risk hemicolectomy in the setting of sepsis and hypotension 03/22/2013. Complication of a stomal leak resulting in an abdominal abscess.? Readmitted to [facility] 05/03/13 emergently with sepsis syndrome and had? an abdominal abscess drained. ? Completed rehab at [facility] with discharge most recently on after extensive dressing care? of the abdominal wound with a wound VAC.Hepatitis C (Chronic) Recent negative viral count.Depression (Chronic) Vitamin D deficiency (Chronic) History of colostomy (Chronic) Medical History? Anemia (05/03/13) Hemoglobin 8.2.Anemia Chronic kidney disease Depression Diabetes mellitus Diabetes mellitus type 2 On MetforminEssential hypertension Fall Gastroesophageal reflux disease GERD (gastroesophageal reflux disease) History of breast cancer History of hepatitis C History of incisional hernia History of renal failure Migraine Morbid obesity Osteopenia Vitamin D deficiency Surgical History? Colectomy H/O mastectomy Hernia Repair, Incisional x2 S/P cholecystectomy Social History/Home Situation: Pt lives in a private home and reports that she is (I) at her baseline level of function. She does note that she doesn't do a lot of cooking due to prolonged standing but reports that otherwise she can perform her bathing in tub shower, dressing and grooming techniques. She also reports that she is able to drive. She states that she has had HH services prior. Equipment owned/DME: shower bench, grab bars, FWW SUBJECTIVE: Pt was sitting in chair when OT arrived. She states that she is doing well and notes that she is receptive to OT evaluation today. OBJECTIVE: General Observation: Pleasant, IV in (L) UE, Colostomy Randle catheter, obesity and high BMI Mental Status: A&Ox4 Pain: no c.o pain ROM: RUE AROM WFL lacking some shoulder flexion L UE AROM WFL lacking some shoulder flexion STRENGTH: RUE 3+/5 throughout LUE 3+/5 throughout FUNCTIONAL MOBILITY/ADLS: Self Care Training: OT educated and trained pt in energy conservation techniques to household task, ADL/IADL performance, and went over options of adaptive equipment in terms of functional (I) for ADLs. Pt is receptive and OT provided pt with handouts with supporting information to training. OT will monitor this. EATING Sitting in chair, (I) With hand to mouth coordination, (I) opening a closing containers, (I) and appropriate use of silverware. BALANCE: Static sitting Normal Dynamic Sitting Normal SPECIAL TESTS: Daily Activity Limitations Standardized Measure [facility] AM -PAC ?6 clicks? Daily Activity Inpatient Short Form: Raw score: 18 INFORMED CONSENT/EDUCATION: Pt instructed in purpose of OT Consult and plan of care. ASSESSMENT: Patient is a 71-year-old female referred to occupational therapy services with diagnosis of mass of (L) ovary, chronic kidney disease, essential HTN, DM II, back pain, morbid obesity, hyperlipidemia, entercutaneous fistula, diverticulitis, hepatitis C, depression, Vit D deficiency. Patient presents with clinical signs and symptoms consistent with dx, as demonstrated by the following impairment level findings/functional limitations: Impairments in ADL/IADL and leisure activities, decreased functional activity tolerance, decreased functional mobility required for ADL performance, decreased strength in (B) UE, decreased LE dressing and bathing. [facility] score 18 Patient is assessed as a Moderate 85432 complexity based on the following: History: see above Examination: see functional limitations as noted above Presentation: evolving Decision Making: Moderate complexity based on examination GOALS Goals x1 week 1. Transfers (I) 2. Dressing sitting in chair (I) UE, min (A) LE 3. Bathing standing at sink (I) UE and min (A) LE 4. Toileting on toilet (I) 5. Grooming standing at the sink (I) brushing teeth with ideal technique 6. Pt will be able to demonstrate appropriate energy conservation techniques during ADLs. PLAN OF CARE/TREATMENT PLAN: 1x/day, 5 days/ week x 1week Initiate Occupational Therapy Services for bathing, dressing, grooming, toileting, eating, transfer training. DISCHARGE RECOMMENDATIONS OT recommends that pt go to SNF for continued progression of her functional (I) and increased (I) in her ADL/IADL routines. TREATMENT TIME/MINUTES/CODES 84110, [id number] Aisha Claros OTR/[facility]
--- NOTE | 2021-11-25 10:07 | PGE_ITS ---
Date of Service Date of service: 11/25/21 Time of Service: 10:07 Assessment and Plan Assessment and plan (1) Back pain: Status: Acute Assessment and plan: better managed continue scheduled apap, add lidocaine patch (2) Morbid obesity: Status: Chronic Assessment and plan: BMI 57 nutrition consult (3) Diabetes mellitus type 2: Status: Acute Assessment and plan: blood sugars well controlled in the 100's A1C in October 2021 was 8.9 continue diabetic diet, blood sugar checks ac/hs with coverage as needed. glipizide on hold while hospitalized continue 1/2 dose of lantus bid while hospitalized, adjust as needed. (4) Depression: Status: Chronic Assessment and plan: continue home medication, (5) Essential hypertension: Status: Acute Assessment and plan: blood pressure stable, (6) Chronic kidney disease: Status: Chronic Assessment and plan: creatinine up to 2.0 will give 1 liter of NS today avoid nephrotoxic drugs, renal dosing as needed. elevated potassium, will give lasix and one dose of veltassa. renal CT: ABDOMEN: Lung Bases: Respiratory motion.? Heart enlarged. Liver: Mild fatty infiltration..? No measurable mass. Gallbladder and biliary tract: Status post cholecystectomy.? No radiodense calcu charisse or dilation. Pancreas: Normal density, no calcifications or inflammatory process. Spleen: Normal. Kidneys: Cyst upper pole left kidney.? No change lobulated contour of the right kidney..? No radiodense stones or obstructive uropathy. No masses seen. Adrenal glands: No masses seen. Abdominal Aorta: Abdominal portion non-dilated. Mild atherosclerotic changes. 4.8 centimeter area of calcification superior to the stomach and lateral to the liver likely represents an area of fat necrosis.? It which was visible on 2013 exam but was uncalcified at that time. Soft tissues: Right-sided ostomy, unchanged. PELVIS:? Bladder: Symmetric distention, no gross wall thickening. Bowel: No obstruction or bowel wall thickening. Peritoneal cavity: No ascites, collection or mesenteric inflammatory response. Reproductive: 8.5 by 8.7 centimeter cystic mass with septation likely originating from the left? ovary.? This is increased in size when compared with the previous exam.? Heterogeneous uterus could indicate versus endometrial abnormality . Enlargement versus cyst of the right ovary.. Bones: CT lumbar spine: Mild levoscoliosis no compression fracture.? Degenerative disc changes? are noted greater in the lower thoracic and upper lumbar levels..? ? Facet degenerative changes are prominent in the lower lumbar region.? Bones appear osteoporotic.? No gross lytic or blastic lesions. IMPRESSION: 1.? Interval increase in size of left ovarian cystic mass with septation, suspicious for neoplasm. 2.? Heterogeneous lesions within the uterus, better seen on previous exam.? Malignancy not excluded. 3.? No acute abnormality of the lumbar spine.? Degenerative changes and mild scoliosis. (7) Mass of left ovary: Status: Acute Assessment and plan: suspicious for neoplasm will obtain MRI to better characterized, giving IV fluid as GFR needs to be greater than 30. will need content development specialist referral outpatient. palliative care consult (8) DVT prophylaxis: Status: Acute Assessment and plan: enoxaparin daily (9) Discharge planning issues: Status: Acute Assessment and plan: PT consulted and anticipate a discharge to rehabilitation prior to returning home discharge discussed with Dr Iqbal Subjective Subjective Patient reports: no new complaints, tolerating liquids well, tolerating a regular diet and afebrile; denies shortness of breath Exam Const General: no acute distress, disheveled (older than stated age), frail appearing and ill appearing chronically Nutritional Appearance: obese Orientation: alert, awake and oriented x3 HENMT Head: normal to inspection, normocephalic and atraumatic Mouth: oral mucosae normal Resp Effort & Inspection: normal respiratory effort Cardio Rate: regular rate Rhythm: regular rhythm GI Inspection: large pannus and obesity Skin Rashes: rashes noted (fungal, skin folds) Neuro General: patient alert and patient awake Extrem General: edema Psych Appearance: disheveled Mental Status: other (withdrawn) Mood: other (withdrawn) Affect: blunted Attitude: avoids eye contact Insight: limited Judgment: limited Objective Last Vital Signs Temp 36.2 C L 11/25/21 08:23 Pulse 80 11/25/21 08:23 Resp 20 11/25/21 08:23 BP 118/70 11/25/21 08:23 Pulse Ox 90 L 11/25/21 08:23 Laboratory Results - last 24 hr 11/25/21 11/25/21 11/25/21 07:00 07:00 07:00 WBC 9.01 RBC 3.63 L Hgb 9.1 L Hct 31.9 L MCV 87.9 MCH 25.1 L MCHC 28.5 L RDW 15.7 H Plt Count 138 MPV 10.1 Immature Gran % 0.4 Neutrophils % 65.4 Lymphocytes % 22.4 Monocytes % 7.1 Eosinophils % 4.3 Basophils % 0.4 Nucleated RBC % 0 Absolute Neutrophils 5.88 Absolute Lymphocytes 2.02 Absolute Monocytes 0.64 Absolute Eosinophils 0.39 Absolute Basophils 0.04 Sodium 141 Potassium 5.0 Chloride 106 Carbon Dioxide 26.8 Anion Gap 8.2 BUN 26 H Creatinine 1.7 H Estimated GFR/1.73 m2 29.71 Glucose 156 H Calcium 9.0 Magnesium 1.4 L
[2021-11-25] MEDS: Normal Saline 1,000 ML 100 ML IV (12:10)
--- NOTE | 2021-11-25 15:06 | PT.INTREAT ---
Date of service: 11/25/21 Time of Service: 10:32 PT Notes Visit Reasons: Back Pain Inpatient Physical Therapy Treatment Note [facility] Date: 11/25/2021 PRECAUTIONS: Fall, LBP, Activity as tolerated SUBJECTIVE: Raven is pleasant and agreeable to participating in PT. She states that she is feeling a little better today. OBJECTIVE: PAIN: Patient c/o B LE and UE fatigue as well as LBP with gait training BED MOBILITY/TRANSFERS Sit-supine: Min A with HOB flat Sit-stand: SBA Stand-sit: SBA Chair-bed: CGA GAIT Assistive Device: FWW Weight bearing: Full Assist: CGA Distance: 16' + 25' in a.m.; 5' in p.m. Deviation: Moderate SOB, increased fatigue, wide DIPESH; seated rest x1 in a.m. THEREX: Patient was instructed in an UE and LE strengthening program, completed in a seated position, as per flow sheet. ASSESSMENT: Patient tolerated session with c/o increased fatigue and with SOB and LBP with gait training. She was able to tolerate a progression in gait distance with FWW support and CGA. PLAN: Continue with global strengthening and general conditioning for improved mobility, as well as gait and transfer training. TREATMENT CODE/TIME: Session 1: 18 minutes; 46193 (10:32) Session 2: 14 minutes; [id number] (14:46)
[2021-11-25] MEDS: Lidocaine 5% Patch 2 PATCH TP (16:13)
[2021-11-25 16:25] LABS: Anion Gap 8.5 mmol/L (3-11); BUN 31 mg/dL (7-18); CO2 24.5 mmol/L (21.0-32.0); Calcium 9.4 mg/dL (8.5-10.1); Chloride 104 mmol/L (98-107); Estimated GFR 24.63 (mL/min/1.73m2); Potassium 5.6 mmol/L (3.5-5.1); Sodium 137 mmol/L (136-145)
[2021-11-25 16:39] LABS: Glucose 271 mg/dL (74-106)
[2021-11-25] MEDS: Furosemide 20 MG/2 ML VIAL IVP (18:36)
[2021-11-25] MEDS: Simvastatin 40 MG TAB PO (19:50)
[2021-11-26] VITALS (7 sets, daily range): BP systolic 93–138; BP diastolic 62–73; PULSE 89–95; RESP 18–24; TEMP 36–36.8; O2SAT 93–98
--- NOTE | 2021-11-26 | DI.US_ITS ---
Exam(s) US PELVIS EXAM: US PELVIS CLINICAL HISTORY: ovarian cyst. TECHNIQUE: Transabdominal pelvic ultrasound was performed using standard protocol. COMPARISON: CT CT RENAL COLIC WO from 11/23/2021 FINDINGS: Examination limited by patient body habitus. UTERUS: Position: Anteverted. Size: 7.8 long by 5.2 AP by 5.9 transverse cm Endometrium: 3.6 cm. This is thickened for a postmenopausal patient. Myometrium: Unremarkable. Cervix: Unremarkable. OVARIES: The patient reports a history of bilateral oophorectomy. CUL-DE-SAC: Free fluid: None. Other: There is an 8.1 x 8.4 x 8.4 cm septated left adnexal cystic lesion. There is blood flow noted in the periphery of the lesion. IMPRESSION: 1. The patient reports a history of bilateral oophorectomy. Please correlate with surgical history. 2. Multi-septated cystic 8.1 x 8.4 x 8.4 cm left adnexal lesion. Neoplasm cannot be excluded. This may be of ovarian origin or possibly arise from the uterus. A non gynecologic pelvic mass should als o be considered. 3. Marked thickening of the endometrium in this postmenopausal patient. Gynecologic consult is recom mended. DATA REPOSITORY:
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
[2021-11-26] MEDS: Insulin Aspart 300 UNITS/3 ML PEN SC ×3 (08:11→18:17)
[2021-11-26] MEDS: Cholecalciferol (Vitamin D3) 1,000 UNIT TAB 4000 UNITS PO (08:11)
[2021-11-26] MEDS: Nystatin POWDER 60 GM JAR TP ×3 (08:11→20:36)
[2021-11-26] MEDS: Acetaminophen 325 MG TAB 650 MG PO ×4 (08:12→20:27)
[2021-11-26] MEDS: Pregabalin 50 MG CAP PO ×3 (08:12→20:27)
[2021-11-26] MEDS: DULoxetine 30 MG CAP 60 MG PO ×2 (08:12→20:26)
[2021-11-26] MEDS: Aspirin 81 MG CHEW PO (08:12)
[2021-11-26] MEDS: Metoprolol CR 25 MG TABCR PO (08:12)
[2021-11-26] MEDS: Magnesium Oxide 400 MG TAB PO ×2 (08:12→20:27)
[2021-11-26] MEDS: Calcium 600mg/Vit D 200U TAB 1 TAB PO (08:13)
[2021-11-26] MEDS: Insulin Glargine 300 UNITS/3 ML PEN 25 UNITS SC (08:15)
--- NOTE | 2021-11-26 10:01 | OT.INNT ---
Occupational Therapy Notes 11/26/21 OT attempted to see pt this morning and she was getting an IV at this time. OT will attempt to see pt again later today. Aisha Claros, OTR/L
--- NOTE | 2021-11-26 10:40 | DM INPTCON_ITS ---
Date of service: 11/26/21 Time of Service: 10:40 Diabetes Inpatient Consult Reason for Visit: dm DESCRIPTION/ASSESSMENT: Met with Raven today and offered outpatient services for glycemic and weight management. She declined. Raven is a 71 year old female with BMI 57 with long standing hx of DM2, CKD, HTN, HLD, Morbid obesity. Noted with 20 lbs weight gain in last 2 years. Home DM meds: glipizide 10 mg BID, lispro 12-25 u TID, 56 units lantus BID. Current DM meds contributing to weight gain. A1C: 8.9% (11/02/21) indicates blood sugars not at target. Recommend keeping A1C <8.5% in view of comorbidities. May benefit from a GLPra or SGLT2i and red uction on basal insulin. Would also recommend d/c glipizide as can cause weight gain. Following Diabetic Diet with adqequate intake. INTERVENTION: Continue current meal plan At discharge, recommend referral to endocrinology for Dm med adjustment PLAN: will be available prn. Time Spent in Nutritional Counseling and Treatment: 10
[2021-11-26 10:53] LABS: Abs Immature Grans 0.06 10^3/uL (0.0-0.06); Absolute Basophil Count 0.04 10^3/uL (0.0-0.2); Absolute Eosinophil Count 0.48 10^3/uL (0.0-0.7); Absolute Lymphocyte Count 1.15 10^3/uL (1.2-3.4); Absolute Monocyte Count 0.61 10^3/uL (0.1-0.8); Absolute Neutrophil Count 7.96 10^3/uL (1.2-6.7); Basophils % 0.4; Eosinophils % 4.7; HCT 36.6 % (36.0-46.0); HGB 10.6 g/dL (11.2-15.7); Immature Grans % 0.6; Lymphocytes % 11.2; MCV 86.3 fL (80-95); MPV 10.2 fL (8.0-11.0); Monocytes % 5.9; Neutrophils % 77.2; Platelet Count 139 10^3/uL (130-400); RBC 4.24 10^6/uL (3.93-5.22); RDW 15.9 % (11.7-14.6); RDW-SD 49.2 fL
[2021-11-26 11:01] LABS: Anion Gap 6.7 mmol/L (3-11); BUN 31 mg/dL (7-18); CO2 26.3 mmol/L (21.0-32.0); CREATININE 1.7 mg/dL (0.55-1.02); Calcium 10.4 mg/dL (8.5-10.1); Chloride 103 mmol/L (98-107); Estimated GFR 29.71 (mL/min/1.73m2); Glucose 254 mg/dL (74-106); Magnesium 1.8 mg/dL (1.8-2.4); Potassium 5.4 mmol/L (3.5-5.1); Sodium 136 mmol/L (136-145)
--- NOTE | 2021-11-26 11:35 | PDOC.CMPRO ---
- If Service Date Differs Date of service: 11/26/21 Time of Service: 11:35 Care Management Progress Note S/O: S/O: Raven was sitting up in her chair when CM met with her. Raven was tentatively accepted at [facility], pending PA, which has been started by [facility]. CM reviewed this with Raven, stating that if the PA is obtained, she will likely transport there on Monday. If not, she will likely return home with support. Per PT, she is doing very well, and progressing toward her goals. CM will continue to follow. A: Raven is a 71 year old woman admitted on 11/23/21 with back pain P:Raven will likely be transferred to a fpc facility for short term rehab prior to returning home. Referrals have been sent to [facility] and the [facility]. She will follow up with the facility providers and plan of care and transport via w/c van. CM will continue to support Raven and assess for ongoing discharge considerations.
[2021-11-26 13:33] LABS: Bilirubin Negative (Negative); Blood Negative (Negative); Clarity Cloudy (Clear); Glucose Negative (Negative); Ketones Negative (Negative); Leukocyte Esterase Negative (Negative); Nitrite Negative (Negative); Urobilinogen 0.2 EU/dL (Up TO 0.2); pH 5.5 (5-8)
--- NOTE | 2021-11-26 13:52 | PGE_ITS ---
Date of Service Date of service: 11/26/21 Time of Service: 16:56 Assessment and Plan Assessment and plan (1) Delirium: Status: Acute Assessment and plan: patient with baseline cognitive impairment now more confused. UTI ruled out. head CT October 2021 with no acute intracranial pathology. suspect d/t multiple co-morbidities, hospitalization and underlying cognitive impairment \ consider repeat head CT, (2) Back pain: Status: Acute Assessment and plan: better managed continue scheduled apap, add lidocaine patch (3) Morbid obesity: Status: Chronic Assessment and plan: BMI 57 nutrition consult (4) Diabetes mellitus type 2: Status: Acute Assessment and plan: blood sugar 200-250's A1C in October 2021 was 8.9 continue diabetic diet, blood sugar checks ac/hs with coverage as needed. glipizide on hold while hospitalized will increase lantus to 30 units bid as her blood sugars have been over 200 (home dose is 56 BID) (5) Depression: Status: Chronic Assessment and plan: continue home medication, (6) Essential hypertension: Status: Acute Assessment and plan: blood pressure stable, (7) Chronic kidney disease: Status: Chronic Assessment and plan: creatinine back down to 1.7 given 1 liter of NS yesterday potassium improved to 5.4 from 5.6 will give veltassa and another lasix push 20 mg. avoid nephrotoxic drugs, renal dosing as needed. renal CT: ABDOMEN: Lung Bases: Respiratory motion.? Heart enlarged. Liver: Mild fatty infiltration..? No measurable mass. Gallbladder and biliary tract: Status post cholecystectomy.? No radiodense calculus or dilation. Pancreas: Normal density, no calcifications or inflammatory process. Spleen: Normal. Kidneys: Cyst upper pole left kidney.? No change lobulated contour of the right kidney..? No radiodense stones or obstructive uropathy. No masses seen. Adrenal glands: No masses seen. Abdominal Aorta: Abdominal portion non-dilated. Mild atherosclerotic changes. 4.8 centimeter area of calcification superior to the stomach and lateral to the liver likely represents an area of fat necrosis.? It which was visible on 2013 exam but was uncalcified at that time. Soft tissues: Right-sided ostomy, unchanged. PELVIS:? Bladder: Symmetric distention, no gross wall thickening. Bowel: No obstruction or bowel wall thickening. Peritoneal cavity: No ascites, collection or mesenteric inflammatory response. Reproductive: 8.5 by 8.7 centimeter cystic mass with septation likely originating from the left? ovary.? This is increased in size when compared with the previous exam.? Heterogeneous uterus could indicate versus endometrial abnormality . Enlargement versus cyst of the right ovary.. Bones: CT lumbar spine: Mild levoscoliosis no compression fracture.? Degenerative disc changes? are noted greater in the lower thoracic and upper lumbar levels..? ? Facet degenerative changes are prominent in the lower lumbar region.? Bones appear osteoporotic.? No gross lytic or blastic lesions. IMPRESSION: 1.? Interval increase in size of left ovarian cystic mass with septation, suspicious for neoplasm. 2.? Heterogeneous lesions within the uterus, better seen on previous exam.? Malignancy not excluded. 3.? No acute abnormality of the lumbar spine.? Degenerative changes and mild scoliosis. (8) Mass of left ovary: Status: Acute Assessment and plan: suspicious for neoplasm will obtain MRI to better characterized, giving IV fluid as GFR needs to be greater than 30. will need environmental professional referral outpatient. palliative care consult (9) DVT prophylaxis: Status: Acute Assessment and plan: enoxaparin daily (10) Discharge planning issues: Status: Acute Assessment and plan: PT consulted and anticipate a discharge to rehabilitation prior to returning home discharge discussed with Dr Iqbal Subjective Subjective Patient reports: no new complaints, tolerating liquids well, tolerating a regular diet and afebrile; denies shortness of breath Exam Const General: no acute distress, frail appearing and ill appearing chronically Nutritional Appearance: obese Orientation: alert, awake, oriented to person and confused HENIN Head: normal to inspection, normocephalic and atraumatic Mouth: oral mucosae normal Resp Effort & Inspection: normal respiratory effort Cardio Rate: regular rate Rhythm: regular rhythm GI Inspection: large pannus and obesity Skin Rashes: rashes noted (fungal, skin folds) Neuro General: patient alert, patient awake and oriented Patient Orientation: Person and Confused Extrem General: edema Psych Appearance: disheveled Mental Status: other (withdrawn) Mood: other (withdrawn) Affect: blunted Attitude: avoids eye contact Insight: limited Judgment: limited Objective Last Vital Signs Temp 36.8 C 11/26/21 12:13 Pulse 89 11/26/21 12:13 Resp 20 11/26/21 12:13 BP 138/70 11/26/21 12:13 Pulse Ox 95 11/26/21 12:13 Laboratory Results - last 24 hr 11/25/21 11/26/21 11/26/21 16:05 10:26 10:27 WBC 10.30 RBC 4.24 Hgb 10.6 L Hct 36.6 MCV 86.3 MCH 25.0 L MCHC 29.0 L RDW 15.9 H Plt Count 139 MPV 10.2 Immature Gran % 0.6 Neutrophils % 77.2 Lymphocytes % 11.2 Monocytes % 5.9 Eosinophils % 4.7 Basophils % 0.4 Nucleated RBC % 0.0 Absolute Neutrophils 7.96 H Absolute Lymphocytes 1.15 L Absolute Monocytes 0.61 Absolute Eosinophils 0.48 Absolute Basophils 0.04 Sodium 137 136 Potassium 5.6 H 5.4 H Chloride 104 103 Carbon Dioxide 24.5 26.3 Anion Gap 8.5 6.7 BUN 31 H 31 H Creatinine 2.0 H 1.7 H Estimated GFR/1.73 m2 24.63 29.71 Glucose 271 H D 254 H Calcium 9.4 10.4 H Magnesium 1.8 Urine Color Urine Clarity Urine pH Ur Specific [place] Urine Protein Urine Ketones Urine Blood Urine Nitrite Urine Bilirubin Urine Urobilinogen Ur Leukocyte Esterase Urine Glucose 11/26/21 13:15 WBC RBC Hgb Hct MCV MCH MCHC RDW Plt Count MPV Immature Gran % Neutrophils % Lymphocytes % Monocytes % Eosinophils % Basophils % Nucleated RBC % Absolute Neutrophils Absolute Lymphocytes Absolute Monocytes Absolute Eosinophils Absolute Basophils Sodium Potassium Chloride Carbon Dioxide Anion Gap BUN Creatinine Estimated GFR/1.73 m2 Glucose Calcium Magnesium Urine Color Yellow Urine Clarity Cloudy Urine pH 5.5 Ur Specific [place] 1.020 Urine Protein Negative Urine Ketones Negative Urine Blood Negative Urine Nitrite Negative Urine Bilirubin Negative Urine Urobilinogen 0.2 Ur Leukocyte Esterase Negative Urine Glucose Negative
--- NOTE | 2021-11-26 14:25 | PT.INTREAT ---
Date of service: 11/26/21 Time of Service: 13:06 PT Notes Visit Reasons: Back Pain Inpatient Physical Therapy Treatment Note [facility] Date: 11/26/2021 PRECAUTIONS: Fall, LBP, Activity as tolerated SUBJECTIVE: Raven states that she has been incontinent today. When asked where she is she states at [place] something or other. OBJECTIVE: Held morning session as patient had been frequently incontinent and confused. During p.m. session, patient called out to her SO, Rodolfo, and reported that he was just in the kitchen with her. PAIN: No c/o pain BED MOBILITY/TRANSFERS Sit-supine: Max A x2 Sit-stand: SBA Stand-sit: SBA Chair-bed: CGA GAIT Assistive Device: FWW Weight bearing: Full Assist: CGA Distance: 10' Deviation: Moderate SOB, increased fatigue, wide DIPESH, LOB x1 TOILETING: Patient toileted with assist. ASSESSMENT: Patient tolerated session with increased confusion. She was limited today due to her acute AMS. PLAN: Continue with global strengthening and general conditioning for improved mobility, as well as gait and transfer training. TREATMENT CODE/TIME: 15 minutes; 46492 (13:06)
[2021-11-26] MEDS: Normal Saline Flush 10 ML SYR IVP (14:38)
[2021-11-26] MEDS: Furosemide 20 MG/2 ML VIAL IVP (14:38)
[2021-11-26] MEDS: Lidocaine 5% Patch 2 PATCH TP (15:31)
--- NOTE | 2021-11-26 18:44 | PDOC.CMPRO ---
- If Service Date Differs Date of service: 11/26/21 Time of Service: 18:44
[2021-11-26] MEDS: Insulin Glargine 300 UNITS/3 ML PEN 30 UNITS SC (20:25)
[2021-11-26] MEDS: Simvastatin 40 MG TAB PO (20:27)
[2021-11-27 04:49] VITALS: PULSE 90
[2021-11-27 05:12] VITALS: BP 118/70; PULSE 95; RESP 18; TEMP 36; O2SAT 92
[2021-11-27 07:00] VITALS: PULSE 93
[2021-11-27 07:10] VITALS: BP 126/82; PULSE 90; RESP 18; TEMP 36.8; O2SAT 96
[2021-11-27 07:16] LABS: BUN 32 mg/dL (7-18); CREATININE 1.5 mg/dL (0.55-1.02); Calcium 10.9 mg/dL (8.5-10.1); Chloride 105 mmol/L (98-107); Estimated GFR 34.33 (mL/min/1.73m2); Glucose 229 mg/dL (74-106); Potassium 5.2 mmol/L (3.5-5.1); Sodium 140 mmol/L (136-145)
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
[2021-11-27] MEDS: Insulin Aspart 300 UNITS/3 ML PEN SC ×3 (08:42→17:37)
[2021-11-27] MEDS: Acetaminophen 325 MG TAB 650 MG PO ×4 (08:43→20:26)
[2021-11-27] MEDS: Magnesium Oxide 400 MG TAB PO ×2 (08:48→20:26)
[2021-11-27] MEDS: Cholecalciferol (Vitamin D3) 1,000 UNIT TAB 4000 UNITS PO (08:48)
[2021-11-27] MEDS: Pregabalin 50 MG CAP PO ×3 (08:49→20:26)
[2021-11-27] MEDS: Nystatin POWDER 60 GM JAR TP ×2 (08:50→20:39)
[2021-11-27] MEDS: Sodium Zirconium Cyclosilicate 10 GM PKT PO (08:56)
[2021-11-27] MEDS: Metoprolol CR 25 MG TABCR PO (11:20)
[2021-11-27] MEDS: DULoxetine 30 MG CAP 60 MG PO ×2 (11:21→20:26)
[2021-11-27] MEDS: Calcium 600mg/Vit D 200U TAB 1 TAB PO (11:21)
[2021-11-27] MEDS: QUEtiapine 25 MG TAB 12.5 MG PO (11:24)
[2021-11-27] MEDS: Aspirin 81 MG CHEW PO (11:25)
[2021-11-27] MEDS: Insulin Glargine 300 UNITS/3 ML PEN 35 UNITS SC ×2 (11:26→20:26)
[2021-11-27 12:09] VITALS: BP 142/87; PULSE 98; RESP 18; TEMP 37; O2SAT 98
--- NOTE | 2021-11-27 13:39 | W.PM.PROGNOT ---
Date of Service Date of service: 11/27/21 Time of Service: 17:30 Assessment and Plan Assessment and plan (1) Delirium: Status: Acute Assessment and plan: patient with baseline cognitive impairment now more confused. UTI ruled out 11/[address] October 2021 with no acute intracranial pathology. suspect d/t multiple co-morbidities, hospitalization and underlying cognitive impairment (2) Back pain: Status: Acute Assessment and plan: better managed continue scheduled apap, add lidocaine patch (3) Morbid obesity: Status: Chronic Assessment and plan: BMI 57.2 nutrition consulted (4) Diabetes mellitus type 2: Status: Acute Assessment and plan: blood sugar 228-334 A1C in October 2021 was 8.9 continue diabetic diet, blood sugar checks ac/hs with coverage as needed. glipizide remains on hold while hospitalized will increase Lantus to 35 units bid (home dose is 56 BID) (5) Depression: Status: Chronic Assessment and plan: continue home medication, (6) Essential hypertension: Status: Acute Assessment and plan: blood pressure stable, Continue Metoprolol (7) Chronic kidney disease: Status: Chronic Assessment and plan: creatinine down to 1.5 from 2.0 will continue to avoid nephrotoxic drugs, renal dosing as needed. patient started on Lokema for K = 5.[address]: on 11/26 ABDOMEN: Kidneys: Cyst upper pole left kidney.? No change lobulated contour of the right kidney..? No radiodense stones or obstructive uropathy. No masses seen. 4.8 centimeter area of calcification superior to the stomach and lateral to the liver likely represents an area of fat necrosis.? It which was visible on 2013 exam but was uncalcified at that time. Soft tissues: Right-sided ostomy, unchanged. PELVIS:? Peritoneal cavity:Reproductive: 8.5 by 8.7 centimeter cystic mass with septation likely originating from the left? ovary.? This is increased in size when compared with the previous exam.? Heterogeneous uterus could indicate versus endometrial abnormality . Enlargement versus cyst of the right ovary.. Bones: CT lumbar spine: Mild levoscoliosis no compression fracture.? Degenerative disc changes? are noted greater in the lower thoracic and upper lumbar levels..? ? Facet degenerative changes are prominent in the lower lumbar region.? Bones appear osteoporotic.? No gross lytic or blastic lesions. IMPRESSION: 1.? Interval increase in size of left ovarian cystic mass with septation, suspicious for neoplasm. 2.? Heterogeneous lesions within the uterus, better seen on previous exam.? Malignancy not excluded. 3.? No acute abnormality of the lumbar spine.? Degenerative changes and mild scoliosis. (8) Mass of left ovary: Status: Acute Assessment and plan: suspicious for neoplasm will obtain MRI to better characterized, giving IV fluid as GFR needs to be greater than 30. Will need track dresser referral outpatient. palliative care consult pending (9) DVT prophylaxis: Status: Acute Assessment and plan: Continue enoxaparin daily (10) Discharge planning issues: Status: Acute Assessment and plan: Care management is following patient Anticipating a discharge to rehabilitation prior to returning home discharge discussed with Dr travis I have independently examined katie and agree with documentation, assessment and plan Subjective Subjective Patient reports: no new complaints, tolerating a regular diet, flatus, bowel movement, shortness of breath (on exertion) and afebrile; denies nausea or vomiting Exam Narrative Exam Narrative: 143/72, 113, 36.5, 20, 96% 2L NC. HEENT atraumatic; neck supple; lungs clear; heart tachy/regular; abdomen soft and NT, colostomy patent, confluent areas of echymosis lower abdomen left>right; extremities w/o edema; neuro awake but sleepy, moves all4s, able to have semi coherent conversation Const General: no acute distress, disheveled (older than stated age), frail appearing and ill appearing chronically Nutritional Appearance: obese Orientation: alert, awake, oriented to person and confused [facility] Head: normal to inspection, normocephalic and atraumatic Mouth: oral mucosae normal Eyes Alignment and Position: alignment normal and position normal Neck Neck: normal visual inspection Chest Chest: normal inspection of the chest Resp Effort & Inspection: normal respiratory effort Auscultation: clear to auscultation bilaterally Cardio Rate: regular rate Rhythm: regular rhythm GI Inspection: large pannus and obesity Other: Colostomy in place, stoma is red and beefy looking; patent Skin Rashes: rashes noted (fungal, skin folds) Neuro General: patient alert, patient awake and oriented Patient Orientation: Person and Confused Extrem General: normal to inspection and no pedal edema Psych Appearance: disheveled Mental Status: other (withdrawn) Mood: other (withdrawn) Affect: blunted Attitude: avoids eye contact Insight: limited Judgment: limited Objective Last Vital Signs Temp 98.6 F 11/27/21 12:09 Pulse 98 H 11/27/21 12:09 Resp 18 11/27/21 12:09 BP 142/87 H 11/27/21 12:09 Pulse Ox 98 11/27/21 12:09 Laboratory Results - last 24 hr 11/27/21 06:35 Sodium 140 Potassium 5.2 H Chloride 105 Carbon Dioxide 28.0 Anion Gap 7.0 BUN 32 H Creatinine 1.5 H Estimated GFR/1.73 m2 34.33 Glucose 229 H Calcium 10.9 H
[2021-11-27] MEDS: Lidocaine 5% Patch 2 PATCH TP (17:37)
[2021-11-27 19:37] VITALS: BP 131/69; PULSE 84; RESP 18; TEMP 36.4; O2SAT 94
[2021-11-27] MEDS: Simvastatin 40 MG TAB PO (20:26)
[2021-11-28 03:41] VITALS: BP 134/70; PULSE 82; RESP 18; TEMP 36.3; O2SAT 94
[2021-11-28 06:56] LABS: Anion Gap 7.3 mmol/L (3-11); BUN 31 mg/dL (7-18); CO2 28.7 mmol/L (21.0-32.0); CREATININE 1.3 mg/dL (0.55-1.02); Chloride 105 mmol/L (98-107); Estimated GFR 40.49 (mL/min/1.73m2); Glucose 198 mg/dL (74-106); Potassium 5.3 mmol/L (3.5-5.1); Sodium 141 mmol/L (136-145)
[2021-11-28 07:31] VITALS: BP 163/81; PULSE 86; RESP 18; TEMP 36.7; O2SAT 93
[2021-11-28] MEDS: Insulin Aspart 300 UNITS/3 ML PEN SC ×3 (08:19→17:14)
[2021-11-28] MEDS: Insulin Glargine 300 UNITS/3 ML PEN 35 UNITS SC (08:20)
[2021-11-28] MEDS: Nystatin POWDER 60 GM JAR TP ×2 (08:20→19:45)
[2021-11-28] MEDS: Acetaminophen 325 MG TAB 650 MG PO ×4 (08:21→19:54)
[2021-11-28] MEDS: DULoxetine 30 MG CAP 60 MG PO ×2 (08:21→19:53)
[2021-11-28] MEDS: Magnesium Oxide 400 MG TAB PO ×2 (08:21→19:54)
[2021-11-28] MEDS: Calcium 600mg/Vit D 200U TAB 1 TAB PO (08:21)
[2021-11-28] MEDS: Cholecalciferol (Vitamin D3) 1,000 UNIT TAB 4000 UNITS PO (08:21)
[2021-11-28] MEDS: Pregabalin 50 MG CAP PO ×3 (08:21→19:53)
[2021-11-28] MEDS: Metoprolol CR 25 MG TABCR PO (08:21)
[2021-11-28] MEDS: Aspirin 81 MG CHEW PO (08:21)
--- NOTE | 2021-11-28 14:24 | W.PM.PROGNOT ---
Date of Service Date of service: 11/28/21 Time of Service: 14:24 Assessment and Plan Assessment and plan (1) Delirium: Status: Acute Assessment and plan: improved with seroquel and ? sleep. UTI ruled out. head CT October 2021 with no acute intracranial pathology. suspect d/t multiple co-morbidities, hospitalization and underlying cognitive impairment (2) Back pain: Status: Acute Assessment and plan: no further reports of pain continue scheduled apap, add lidocaine patch PT/OT (3) Morbid obesity: Status: Chronic Assessment and plan: BMI 57 nutrition consult (4) Diabetes mellitus type 2: Status: Acute Assessment and plan: blood sugar elevated as she is not following diabetic diet and food being brought in. A1C in October 2021 was 8.9 continue diabetic diet, blood sugar checks ac/hs with coverage as needed. glipizide on hold while hospitalized will increase lantus to 45 units bid as her blood sugars have been over 200 and into 300's (home dose is 56 BID) (5) Depression: Status: Chronic Assessment and plan: continue home medication, (6) Essential hypertension: Status: Acute Assessment and plan: continue home medication and monitor (7) Chronic kidney disease: Status: Chronic Assessment and plan: creatinine now improved to 1.3 with GFR of 40 which is below baseline potassium still remains elevated will schedule lokelma for 3 doses, avoid nephrotoxic drugs, renal dosing as needed. recheck labs in am (8) Mass of left ovary: Status: Acute Assessment and plan: suspicious for neoplasm will obtain MRI to better characterized, now GFR over 30 plan for am. will need trailhead construction worker referral outpatient. palliative care consult (9) DVT prophylaxis: Status: Acute Assessment and plan: enoxaparin daily (10) Discharge planning issues: Status: Acute Assessment and plan: Care management is following patient Anticipating a discharge to rehabilitation prior to returning home Discussed with Dr travis Subjective Subjective Patient reports: no new complaints, tolerating liquids well, tolerating a regular diet and afebrile; denies shortness of breath Interval history since last seen: confusion improving Exam Const General: no acute distress, frail appearing and ill appearing chronically Nutritional Appearance: obese Orientation: alert, awake, oriented to person and confused [facility] Head: normal to inspection, normocephalic and atraumatic Mouth: oral mucosae normal Resp Effort & Inspection: normal respiratory effort GI Inspection: large pannus and obesity Skin Rashes: rashes noted (fungal, skin folds) Neuro General: patient alert, patient awake and oriented Patient Orientation: Person and Confused Extrem General: edema Objective Last Vital Signs Temp 36.7 C 11/28/21 07:31 Pulse 86 11/28/21 07:31 Resp 18 11/28/21 07:31 BP 163/81 H 11/28/21 07:31 Pulse Ox 93 11/28/21 07:31 Laboratory Results - last 24 hr 11/28/21 06:20 Sodium 141 Potassium 5.3 H Chloride 105 Carbon Dioxide 28.7 Anion Gap 7.3 BUN 31 H Creatinine 1.3 H Estimated GFR/1.73 m2 40.49 Glucose 198 H Calcium 11.0 H
[2021-11-28 15:04] VITALS: BP 143/93; PULSE 92; RESP 18; TEMP 36.7; O2SAT 94
[2021-11-28] MEDS: Lidocaine 5% Patch 2 PATCH TP (15:31)
[2021-11-28] MEDS: Sodium Zirconium Cyclosilicate 10 GM PKT PO (15:32)
[2021-11-28 19:45] VITALS: BP 143/73; PULSE 92; RESP 18; TEMP 36.9; O2SAT 95
[2021-11-28] MEDS: QUEtiapine 25 MG TAB 12.5 MG PO (19:53)
[2021-11-28] MEDS: Simvastatin 40 MG TAB PO (19:54)
[2021-11-28] MEDS: Insulin Glargine 300 UNITS/3 ML PEN 45 UNITS SC (19:55)
[2021-11-29] MEDS: Sodium Zirconium Cyclosilicate 10 GM PKT PO (05:47)
[2021-11-29 06:31] VITALS: BP 150/76; PULSE 85; RESP 18; TEMP 36.2; O2SAT 95
[2021-11-29] MEDS: Nystatin POWDER 60 GM JAR TP ×3 (08:19→20:00)
[2021-11-29] MEDS: Insulin Aspart 300 UNITS/3 ML PEN SC ×3 (08:20→17:59)
[2021-11-29] MEDS: Insulin Glargine 300 UNITS/3 ML PEN 45 UNITS SC ×2 (08:21→21:52)
[2021-11-29] MEDS: Cholecalciferol (Vitamin D3) 1,000 UNIT TAB 4000 UNITS PO (08:21)
[2021-11-29] MEDS: Metoprolol CR 25 MG TABCR PO (08:22)
[2021-11-29] MEDS: Calcium 600mg/Vit D 200U TAB 1 TAB PO (08:22)
[2021-11-29] MEDS: Pregabalin 50 MG CAP PO ×3 (08:22→19:59)
[2021-11-29] MEDS: DULoxetine 30 MG CAP 60 MG PO ×2 (08:22→19:59)
[2021-11-29] MEDS: Acetaminophen 325 MG TAB 650 MG PO ×4 (08:22→20:00)
[2021-11-29] MEDS: Aspirin 81 MG CHEW PO (08:22)
[2021-11-29] MEDS: Magnesium Oxide 400 MG TAB PO ×2 (08:22→20:00)
--- NOTE | 2021-11-29 08:49 | PDOC.CMPRO ---
- If Service Date Differs Date of service: 11/29/21 Time of Service: 08:49 Care Management Progress Note S/O: Raven was sitting up in her chair visiting with her boyfriend Rodolfo when CM met with her. She had hoped to be able to go to [facility] but they have declined to offer her a bed. CM will follow up with [facility] and send additional referrals if needed. Raven stated that she is doing much better and has been able to ambulate with assistance. According to PT notes, she has actually ambulated only for short distances. Clinically Raven is doing well and reported to CM that her pain has improved. A: Raven is a 71 year old woman admitted on 11/23/21 with back pain P:Raven will likely be transferred to a shelter facility for short term rehab prior to returning home. Referrals have been sent to [facility], who declined her, and [facility]. She will follow up with the facility providers and plan of care and transport via w/c van. CM will continue to support Raven and assess for ongoing discharge considerations.
--- NOTE | 2021-11-29 12:53 | PCNE_ITS ---
Date of service: 11/29/21 Time of Service: 09:00 History of Present Illness Narrative: Ms. 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; 11/26 w/more confusion, UTI r/o, suspected multiple causes; medically stable at this time, unsure discharge timeline or POC Pt reports LBP nearly resolved w/current use of lidocaine patches and scheduled apap; reports has continued to engage in PT; is willing to be discharged to short term rehab to continue to improve strength; pt agrees that at this time it is not safe for her to return home d/t increased support w/ADLs and strength, does have all equipment needs at home (electric WC and FWW); reports iADLs: eating, dressing, toileting, cannot use shower, gives self bed baths, is able to ambulate at baseline w/o assistance but limited, is incontinent of urine 2- 3x/day r/t urgency pt reports feels confused sometimes, when feels this way is able to sit down and think things thru, denies forgetfulness; denies anxiety/depression Reports AD on file at PCP office, Valerio w/Dolores; daughters Marcia and Whitney listed as HCAs, pt does not wish to distinguish primary HCA, either is fine; has 3rd daughter Isela whom wishes to not participate in DPOA; granddaughter Patricia is quite helpful w/fuel oil clerk that BF Bill does not do, Bill does all cooking and cleaning, is primary caregiver; has several grand children and 4 greats Goal: go to camp on [facility], has a ramp, feels this is safer than home in [place]; spend time with family, would like to do more After visit CM reports that PA was declined for SNF d/t not meeting acuity requirements w/chronic LBP Assessment and Plan Assessment and plan (1) Delirium: Status: Acute Assessment and plan: UTI r/o; suspect r/t multiple co-morbidities, hospitalization and underlying co gnitive impairment (2) Back pain: Status: Acute Assessment and plan: controlled (3) Morbid obesity: Status: Chronic (4) History of colostomy: Status: Chronic Assessment and plan: no issues (5) Decreased activities of daily living (ADL): Status: Acute Assessment and plan: continues to engage in PT, did not meet acuity status for SNF, to work w/family for discharge planning goals of returning home w/[facility] or watermelon inspector placement pending insurance coverage and pt/family goals Review of Systems Constitutional Constitutional: Reports as per HPI PFS All Active Problems Decreased activities of daily living (ADL) (Acute) Delirium (Acute) Discharge planning issues (Acute) DVT prophylaxis (Acute) Mass of left ovary (Acute) Chronic kidney disease (Chronic) Essential hypertension (Acute) Diabetes mellitus type 2 (Acute) On Metformin Back pain (Acute) Morbid obesity (Chronic) Hyperlipidemia (Chronic) 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 Leukocytosis. Intermittently febrile. Diverticulitis (Chronic) Recurrent. S/p high risk hemicolectomy in the setting of sepsis and hypotension 03/22/2013. Complication of a stomal leak resulting in an abdominal abscess. Readmitted to [facility] 05/03/13 emergently with sepsis syndrome and had an abdominal abscess drained. Completed rehab at [facility] with discharge most recently on after extensive dressing care of the abdominal wound with a wound VAC. Hepatitis C (Chronic) Recent negative viral count. Depression (Chronic) Vitamin D deficiency (Chronic) History of colostomy (Chronic) Medical History Anemia (05/03/13) Hemoglobin 8.2. Anemia Depression Diabetes mellitus Fall Gastroesophageal reflux disease GERD (gastroesophageal reflux disease) History of breast cancer History of hepatitis C History of incisional hernia History of renal failure Migraine Morbid obesity Osteopenia Vitamin D deficiency Surgical History Colectomy H/O mastectomy Hernia Repair, Incisional x2 S/P cholecystectomy Family History Mother No problems noted. Father No problems noted. Social History Smoking/Tobacco Use Status: Former Tobacco Use Smoking risk assessment performed?: Yes Alcohol Intake: never Drug use: Never Substance use type: does not use Do you feel safe at home: Yes Do you feel safe in your relationship?: Yes Exam Narrative Exam Narrative: pt sitting comfortably in recliner throughout visit Const General: cooperative, comfortable and no acute distress Nutritional Appearance: obese HENMT Head: normocephalic and atraumatic Ears: hearing grossly normal bilaterally Resp Effort & Inspection: normal respiratory effort, able to speak in complete sentences, no audible wheezes and no cough Psych Appearance: grossly normal Speech and Movement: speech clear Mood: congruent mood Affect: blunted Thought Content: normal Insight: limited Judgment: limited Results Last Vital Signs Temp 97.2 F L 11/29/21 06:31 Pulse 85 11/29/21 06:31 Resp 18 11/29/21 06:31 BP 150/76 H 11/29/21 06:31 Pulse Ox 95 11/29/21 06:31 Labs Result diagrams: 11/26/21 10:26 11/28/21 06:20
--- NOTE | 2021-11-29 14:37 | PT.INTREAT ---
PT Notes Visit Reasons: Back Pain Inpatient Physical Therapy Treatment Note [facility] Date: 11/29/21 PRECAUTIONS:fall SUBJECTIVE: Raven states that she is feeling good today. She denies back pain. OBJECTIVE: PAIN: 0/10 currently BED MOBILITY/TRANSFERS Sit-stand: SBA Stand-sit: SBA, with increased time to perform scooting back in chair GAIT : too fatigued after completion of therex THEREX: Patient completed sitting and standing exercises, as noted on flowsheet. She requires CGA and frequent rest periods during all standing exercises. Post-treatment, patient remained up to chair with chair alarm in place. She was oriented to call joyner with daughter present upon PT departure. ASSESSMENT: Improving comfort. Tolerated introduction of standing exercises well, although ultimately too fatigued to ambulate. PLAN: Continue PT intervention to maximize functional mobility and activity tolerance. TREATMENT CODE/TIME: 2:05-2:35 ([id number])
[2021-11-29 15:09] VITALS: BP 139/85; PULSE 104; RESP 20; TEMP 36.4; O2SAT 91
[2021-11-29] MEDS: Lidocaine 5% Patch 2 PATCH TP (15:30)
--- NOTE | 2021-11-29 17:16 | W.PM.PROGNOT ---
Date of Service Date of service: 11/29/21 Time of Service: 17:17 Assessment and Plan Assessment and plan (1) Delirium: Status: Resolved Assessment and plan: improved with seroquel and ? sleep. appears back to her baseline suspect d/t multiple co-morbidities, hospitalization and underlying cognitive impairment (2) Back pain: Status: Acute Assessment and plan: no further reports of pain continue scheduled apap, add lidocaine patch PT/OT (3) Morbid obesity: Status: Chronic Assessment and plan: BMI 57 nutrition consult (4) Diabetes mellitus type 2: Status: Acute Assessment and plan: blood sugar elevated as she is not following diabetic diet and food being brought in. A1C in October 2021 was 8.9 continue diabetic diet, blood sugar checks ac/hs with coverage as needed. glipizide on hold while hospitalized continue lantus to 45 units bid as her blood sugars have improved to 172-215 (home dose is 56 BID) (5) Depression: Status: Chronic Assessment and plan: continue home medication, (6) Essential hypertension: Status: Acute Assessment and plan: continue home medication and monitor (7) Chronic kidney disease: Status: Chronic Assessment and plan: creatinine now improved to 1.3 with GFR of 40 which is below baseline potassium still remains elevated will schedule lokelma for 3 doses, avoid nephrotoxic drugs, renal dosing as needed. recheck labs in am (8) Mass of left ovary: Status: Acute Assessment and plan: suspicious for neoplasm will obtain MRI to better characterized, now GFR over 30 plan for am. will need political science research assistant referral outpatient. palliative care consult (9) DVT prophylaxis: Status: Acute Assessment and plan: enoxaparin daily (10) Discharge planning issues: Status: Acute Assessment and plan: Care management is following patient Anticipating a discharge to rehabilitation prior to returning home Discussed with Dr travis Subjective Subjective Patient reports: no new complaints, feels better, tolerating liquids well, tolerating a regular diet and afebrile; denies shortness of breath Interval history since last seen: less confused and likely at baseline Exam Const General: cooperative, frail appearing and ill appearing chronically Nutritional Appearance: obese Orientation: alert, awake and oriented x3 HENMT Head: normal to inspection, normocephalic and atraumatic Resp Effort & Inspection: normal respiratory effort Auscultation: clear to auscultation bilaterally Cardio Rate: regular rate Rhythm: regular rhythm GI Inspection: normal to inspection, large pannus, obesity and other (colostomy draining well ) Skin General skin exam: no rashes or lesions noted Neuro General: patient alert, patient awake, oriented Patient Orientation: Person and Place, moves all extremities and no focal motor deficits Speech: speech normal Gait: gait assisted Method: walker Extrem General: edema Psych Appearance: grossly normal Speech and Movement: speech and movement normal Attitude: cooperative Thought Process: normal Thought Content: normal Insight: limited Judgment: limited Objective Last Vital Signs Temp 36.4 C L 11/29/21 15:09 Pulse 104 H 11/29/21 15:09 Resp 20 11/29/21 15:09 BP 139/85 11/29/21 15:09 Pulse Ox 91 L 11/29/21 15:09
[2021-11-29] MEDS: QUEtiapine 25 MG TAB 12.5 MG PO (20:00)
[2021-11-29] MEDS: Simvastatin 40 MG TAB PO (20:00)
--- NOTE | 2021-11-30 | DI.MRI_ITS ---
Exam(s) MR PELVIS WO/W EXAM: MR PELVIS WO/W CLINICAL HISTORY: cyst ovarian, mass ovarian. TECHNIQUE: Multiplanar multisequence MRI was performed. COMPARISON: No exams were available for comparison FINDINGS: MR examination of the pelvis was performed according to the usual protocol including post contrast mu ltiplanar imaging. Urinary bladder appears intact. No gross pelvic adenopathy and pelvic fat shows normal signal. There is an 8 cm in diameter septated predominantly cystic lesion in the left adnexa, there are areas of wall thickening, the findings are suspicious for ovarian carcinoma in this age group.. Tissue sa mpling recommended. On the right, there is an elongated fluid signal finding suggesting fallopian tube. There is a multi -septated right ovarian cyst with mild wall thickening of the septations. Findings are indeterminate for ovarian carcinoma, tissue sampling recommended Uterus is enlarged, measuring, measuring to 30 millimeters thickness. There is heterogeneous signal in endometrial cavity extending into myometrium and suggesting mass. Mass could either originate wit hin myometrium or within endometrial cavity. Neoplasm suspected, tissue sampling recommended. IMPRESSION: Suspicious lesions of left ovary, right ovary, and uterus, including endometrium and/or myometrium. Tissue sampling recommended for all 3 lesions. No gross pelvic lymphadenopathy identified. No gross fat invasion. DATA REPOSITORY:
--- NOTE | 2021-11-30 | DI.MRI_ITS ---
Exam(s) MR ABDOMEN WO/W EXAM: MR ABDOMEN WO/W CLINICAL HISTORY: liver lesions, ovarian mass. TECHNIQUE: Multiplanar multisequence MRI was performed. COMPARISON: CT ABD PELVIS WO CONTRAST from 06/18/[address] lumbar spine wo from 09/14/[address] CHEST PE ABD PELVIS W from 11/04/[address] RENAL COLIC WO from 11/23/2021 FINDINGS: MR examination of the abdomen was performed according to the usual protocol with additional multiphas ic post contrast imaging of the upper abdomen. Visualized aorta and IVC are of normal diameter. No upper abdominal adenopathy. Adrenals and kidney s are unremarkable with an incidental small left renal cyst. Spleen appears normal. No abnormality seen involving the pancreas. No biliary ductal dilatation. Hepatic parenchyma appears normal. There is a 46 x 29 millimeter in diameter masslike finding seen adjacent to the gastric fundus and ad jacent to the left lobe of the liver., review of a prior CT examination from June 2013 shows a pr edominantly fat attenuation lesion corresponding in location to this finding with suggestion of highe r attenuation border, raising the possibility that this represents an area of fat necrosis or other f atty tumor. This appears smaller on the current examination in comparison with the prior study. On the MR examination, there appears to be a defined tissue plane between the lesion in question and the liver. There is no enhancing hepatic lesion nor is there evident enhancement of the extrahepatic le ernesto in question period The MR findings suggest a chronic involuting mass, possibly old fat necrosis. Active neoplasm arisin g from the gastric fundus is not entirely excluded. I would suggest that follow-up CT examination be obtained in 6 months. IMPRESSION: No hepatic lesion identified. Left upper quadrant lesion identified on CT probably represents old fa t necrosis. DATA REPOSITORY:
[2021-11-30 00:05] VITALS: BP 166/93; PULSE 101; RESP 16; TEMP 36.5; O2SAT 97
[2021-11-30] MEDS: Cholecalciferol (Vitamin D3) 1,000 UNIT TAB 4000 UNITS PO (07:59)
[2021-11-30] MEDS: Aspirin 81 MG CHEW PO (07:59)
[2021-11-30] MEDS: DULoxetine 30 MG CAP 60 MG PO ×2 (07:59→19:21)
[2021-11-30] MEDS: Acetaminophen 325 MG TAB 650 MG PO ×4 (08:00→19:20)
[2021-11-30] MEDS: Pregabalin 50 MG CAP PO ×3 (08:00→19:23)
[2021-11-30] MEDS: Metoprolol CR 25 MG TABCR PO (08:00)
[2021-11-30] MEDS: Calcium 600mg/Vit D 200U TAB 1 TAB PO (08:00)
[2021-11-30] MEDS: Magnesium Oxide 400 MG TAB PO ×2 (08:00→19:21)
[2021-11-30] MEDS: Nystatin POWDER 60 GM JAR TP ×3 (08:01→19:41)
[2021-11-30] MEDS: Insulin Aspart 300 UNITS/3 ML PEN SC ×3 (08:20→17:05)
[2021-11-30] MEDS: Insulin Glargine 300 UNITS/3 ML PEN 45 UNITS SC ×2 (08:21→19:35)
[2021-11-30 08:50] VITALS: BP 144/77; PULSE 90; RESP 20; TEMP 36.8; O2SAT 94
--- NOTE | 2021-11-30 10:05 | CMPROGNOTE_ITS ---
- If Service Date Differs Date of service: 11/30/21 Time of Service: 10:05 Care Management Progress Note S/O: Raven was sitting up in her chair when CM met with her. She was smiling and interacted well with CM. Raven asked about progress regarding the SNF referrals that had been sent to [facility] and [facility]. CM informed her yesterday that [facility] had declined to offer her a bed. [facility] was contacted by CM today but stated they could not locate the referral so CM faxed it again with updated information. In conversation, Raven indicated that she would like to go home if [facility] does not offer her a bed. CM replied that we can discuss other options with her care team if/when [facility] declines to offer her a bed. Raven verbalized that she found the plan agreeable. A: Raven is a 71 year old woman admitted on 11/23/21 with back pain P:Raven will likely be transferred to a shelter facility for short term rehab prior to returning home. Referrals have been sent to [facility], who declined her, and [facility]. She will follow up with the facility providers and plan of care and transport via w/c van. CM will continue to support Raven and assess for ongoing discharge considerations.
[2021-11-30 12:01] LABS: Anion Gap 11.1 mmol/L (3-11); BUN 34 mg/dL (7-18); CO2 26.9 mmol/L (21.0-32.0); CREATININE 1.5 mg/dL (0.55-1.02); Calcium 10.5 mg/dL (8.5-10.1); Chloride 101 mmol/L (98-107); Estimated GFR 34.33 (mL/min/1.73m2); Glucose 253 mg/dL (74-106); Potassium 4.9 mmol/L (3.5-5.1); Sodium 139 mmol/L (136-145)
--- NOTE | 2021-11-30 14:26 | PT.INTREAT ---
Date of service: 11/30/21 Time of Service: 11:19 PT Notes Visit Reasons: Back Pain Inpatient Physical Therapy Treatment Note [facility] Date: 11/30/2021 PRECAUTIONS: LBP, Activity as tolerated SUBJECTIVE: Raven is pleasant and agreeable to participating in PT. She states that she is feeling better and feels that she is more mobile than she has been in a long time. She also indicates a decrease in her LBP since her admission. OBJECTIVE: Discussed removing or relocating her commode at home so that she would have to get up and walk to the bathroom or further to the commode to keep her moving when she returns to home. PAIN: Patient c/o LBP in p.m. with poor posture with gait training BED MOBILITY/TRANSFERS Sit-supine: S with HOB flat Sit-stand: S Stand-sit: S GAIT Assistive Device: FWW Weight bearing: Full Assist: SBA Distance: 15' + 10' + 5' + 20' + 15' in a.m.; 15' + 20' + 20' + 10' + 20' in p.m. Deviation: Frequent seated rests due to global fatigue and SOB, max cueing for FWW management TOILETING: Patient toileted with assist in both a.m. and p.m. ASSESSMENT: Patient tolerated session with c/o increased global fatigue and SOB with gait training, although demonstrates increased activity tolerance. PLAN: Continue with global strengthening and general conditioning for improved mobility and activity tolerance. TREATMENT CODE/TIME: Session 1: 24 minutes; [id number] x2 (11:19) Session 2: 30 minutes; [id number] x2 (13:38)
[2021-11-30 14:46] VITALS: BP 119/73; PULSE 94; RESP 18; TEMP 37; O2SAT 92
[2021-11-30] MEDS: Lidocaine 5% Patch 2 PATCH TP (17:02)
--- NOTE | 2021-11-30 17:23 | W.PM.PROGNOT ---
Date of Service Date of service: 11/30/21 Time of Service: 16:00 Assessment and Plan Assessment and plan (1) Delirium: Status: Resolved Assessment and plan: Patient with baseline cognitive impairment no confusion at the time of the exam. UTI ruled out head CT October 2021 with no acute intracranial pathology. (2) Back pain: Status: Acute Assessment and plan: Pain 0/10; better managed continue scheduled APA, and lidocaine patch (3) Morbid obesity: Status: Chronic Assessment and plan: BMI 57.2; continue diabetic consistent CHO diet nutrition consultation still pending (4) Diabetes mellitus type 2: Status: Acute Assessment and plan: blood sugar 179- 230 in the past 24 hours A1C in October 2021 was 8.9 Will continue diabetic diet, blood sugar checks ac/hs with coverage as needed. glipizide remains on hold while hospitalized will keep Lantus dose of 45 units SC BID (5) Depression: Status: Chronic Assessment and plan: continue home medication, (6) Essential hypertension: Status: Acute Assessment and plan: blood pressure stable, Will continue Metoprolol (7) Chronic kidney disease: Status: Chronic Assessment and plan: creatinine = 1.5 was also 1.5 on 11/27 will continue to avoid nephrotoxic drugs, renal dosing as needed. patient started on Lokema for K = 5.[address]: on 11/26 ABDOMEN: Kidneys: Cyst upper pole left kidney.? No change lobulated contour of the right kidney..? No radiodense stones or obstructive uropathy. No masses seen. 4.8 centimeter area of calcification superior to the stomach and lateral to the liver likely represents an area of fat necrosis.? It which was visible on 2012 exam but was uncalcified at that time. Soft tissues: Right-sided ostomy, unchanged. PELVIS:? Peritoneal cavity:Reproductive: 8.5 by 8.7 centimeter cystic mass with septation likely originating from the left? ovary.? This is increased in size when compared with the previous exam.? Heterogeneous uterus could indicate versus endometrial abnormality . Enlargement versus cyst of the right ovary.. Bones: CT lumbar spine: Mild levoscoliosis no compression fracture.? Degenerative disc changes? are noted greater in the lower thoracic and upper lumbar levels..? ? Facet degenerative changes are prominent in the lower lumbar region.? Bones appear osteoporotic.? No gross lytic or blastic lesions. IMPRESSION: 1.? Interval increase in size of left ovarian cystic mass with septation, suspicious for neoplasm. 2.? Heterogeneous lesions within the uterus, better seen on previous exam.? Malignancy not excluded. 3.? No acute abnormality of the lumbar spine.? Degenerative changes and mild scoliosis. (8) Mass of left ovary: Status: Acute Assessment and plan: suspicious for neoplasm MRI w/o contrast completed; will obtain MRI with contrast on 12/01 after IV line placement in AM. Will need resin maker referral outpatient. palliative care consult completed 11/29 (9) DVT prophylaxis: Status: Acute Assessment and plan: Continue enoxaparin daily (10) Discharge planning issues: Status: Acute Assessment and plan: Care management is following patient Still anticipating a discharge to rehabilitation prior to returning home I have independently examined the patient and am in agreement with documentation, assessment and plan discharge discussed with Dr De Guzman Subjective Subjective Patient reports: no new complaints, tolerating a regular diet, flatus, bowel movement, shortness of breath (on exertion) and afebrile; denies nausea or vomiting Exam Narrative Exam Narrative: 143/72, 113, 36.5, 20, 96% 2L NC. HEENT atraumatic; neck supple; lungs clear; heart tachy/regular; abdomen soft and NT, colostomy patent, confluent areas of echymosis lower abdomen left>right; extremities w/o edema; neuro awake but sleepy, moves all4s, able to have semi coherent conversation Const General: no acute distress, disheveled (older than stated age), frail appearing and ill appearing chronically Nutritional Appearance: obese Orientation: alert, awake, oriented x3, oriented to person and confused [facility] Head: normal to inspection, normocephalic and atraumatic Mouth: oral mucosae normal Eyes Alignment and Position: alignment normal and position normal Neck Neck: normal visual inspection Chest Chest: normal inspection of the chest Other: surgical scar to chest. Resp Effort & Inspection: normal respiratory effort Auscultation: clear to auscultation bilaterally Cardio Rate: regular rate Rhythm: regular rhythm Heart Sounds: S1 normal and S2 normal GI Inspection: large pannus and obesity Other: Colostomy to right abd wall, patent, small amount of stool in the bag. Skin General skin exam: scars (healed to ABD and anterior chest) Rashes: rashes noted (fungal, skin folds) Neuro General: patient alert, patient awake and oriented Patient Orientation: Person, Place and Time Cognition: normal cognition Speech: speech normal Extrem General: normal to inspection, no pedal edema and edema Psych Appearance: grossly normal Mental Status: mental status grossly normal Affect: normal affect Attitude: avoids eye contact Objective Last Vital Signs Temp 98.6 F 11/30/21 14:46 Pulse 94 H 11/30/21 14:46 Resp 18 11/30/21 14:46 BP 119/73 11/30/21 14:46 Pulse Ox 92 11/30/21 14:46 Laboratory Results - last 24 hr 11/30/21 11:45 Sodium 139 Potassium 4.9 Chloride 101 Carbon Dioxide 26.9 Anion Gap 11.1 H BUN 34 H Creatinine 1.5 H Estimated GFR/1.73 m2 34.33 Glucose 253 H Calcium 10.5 H
[2021-11-30] MEDS: QUEtiapine 25 MG TAB 12.5 MG PO (19:20)
[2021-11-30] MEDS: Simvastatin 40 MG TAB PO (19:23)
[2021-11-30 22:41] VITALS: BP 125/92; PULSE 97; RESP 20; TEMP 36.7; O2SAT 94
[2021-12-01 07:38] VITALS: BP 125/70; PULSE 82; RESP 18; TEMP 36.4; O2SAT 93
[2021-12-01] MEDS: Acetaminophen 325 MG TAB 650 MG PO ×4 (08:11→20:35)
[2021-12-01] MEDS: Cholecalciferol (Vitamin D3) 1,000 UNIT TAB 4000 UNITS PO (08:12)
[2021-12-01] MEDS: Calcium 600mg/Vit D 200U TAB 1 TAB PO (08:12)
[2021-12-01] MEDS: Aspirin 81 MG CHEW PO (08:12)
[2021-12-01] MEDS: Insulin Aspart 300 UNITS/3 ML PEN SC ×3 (08:13→17:36)
[2021-12-01] MEDS: DULoxetine 30 MG CAP 60 MG PO ×2 (08:13→20:35)
[2021-12-01] MEDS: Insulin Glargine 300 UNITS/3 ML PEN 45 UNITS SC (08:14)
[2021-12-01] MEDS: Magnesium Oxide 400 MG TAB PO ×2 (08:15→20:36)
[2021-12-01] MEDS: Nystatin POWDER 60 GM JAR TP ×3 (08:15→20:37)
[2021-12-01] MEDS: Metoprolol CR 25 MG TABCR PO (08:15)
[2021-12-01] MEDS: Pregabalin 50 MG CAP PO ×3 (08:16→20:36)
[2021-12-01 08:58] LABS: Anion Gap 4.7 mmol/L (3-11); BUN 36 mg/dL (7-18); CO2 29.3 mmol/L (21.0-32.0); CREATININE 1.4 mg/dL (0.55-1.02); Calcium 9.7 mg/dL (8.5-10.1); Chloride 104 mmol/L (98-107); Estimated GFR 37.18 (mL/min/1.73m2); Glucose 232 mg/dL (74-106); Potassium 5.3 mmol/L (3.5-5.1); Sodium 138 mmol/L (136-145)
--- NOTE | 2021-12-01 09:03 | CMPROGNOTE_ITS ---
- If Service Date Differs Date of service: 12/01/21 Time of Service: 09:03 Care Management Progress Note S/O: Raven was sitting up in her chair when CM met with her. She was preparing to go back for the rest of the MRI started yesterday. This is being done to follow up on the mass seen on her ovary in earlier studies. Raven admitted to being a bit nervous about having the test as it is uncomfortable. CM discussed the fact that [facility] declined to offer her a bed and that the [facility] has not responded. Raven again stated that she would still like to return home if possible. Per PT, she has made great progress and has exceeded her baseline functioning. Raven's daughter was present for the afternoon PT session yesterday and was impressed by her progress. If Raven does return home, there will be a plan put into place which will outline expectations for both Raven and her family to ensure continued improvement. A: Raven is a 71 year old woman admitted on 11/23/21 with back pain P:Raven will likely be transferred to a [facility] facility for short term rehab prior to returning home, if a bed offer can be secured. Referrals have been sent to [facility] and the [facility] and both facilities declined to make a bed offer. She will follow up with the facility providers and plan of care and transport via w/c van. CM will continue to support Ravne and assess for ongoing discharge considerations.
[2021-12-01] MEDS: Normal Saline 500 ML IV (10:26)
[2021-12-01] MEDS: Ketorolac 15 MG/ML VIAL IVP (10:27)
[2021-12-01] MEDS: Normal Saline Flush 10 ML SYR IVP ×3 (10:27→13:43)
[2021-12-01] MEDS: MORPHine 2 MG/ML SYR IVP (11:05)
[2021-12-01] MEDS: Gadoterate meglumine 20 ML VIAL IVP (12:41)
--- NOTE | 2021-12-01 14:09 | PGE_ITS ---
Date of Service Date of service: 12/01/21 Time of Service: 14:09 Assessment and Plan Assessment and plan (1) Delirium: Status: Resolved Assessment and plan: appears back to her baseline continue seroquel at HS suspect d/t multiple co-morbidities, hospitalization and underlying cognitive impairment (2) Back pain: Status: Acute Assessment and plan: pain controlled continue scheduled apap, add lidocaine patch PT/OT (3) Morbid obesity: Status: Chronic Assessment and plan: BMI 57 nutrition consult (4) Diabetes mellitus type 2: Status: Acute Assessment and plan: patient not diet compliant blood sugar 175- 226 over past 24 hours A1C in October 2021 was 8.9 Will continue diabetic diet, blood sugar checks ac/hs with coverage as needed. glipizide remains on hold while hospitalized increase Lantus dose to 50 units SC BID (5) Depression: Status: Chronic Assessment and plan: continue home medication, (6) Essential hypertension: Status: Acute Assessment and plan: continue home medication and monitor (7) Chronic kidney disease: Status: Chronic Assessment and plan: creatinine now improved to 1.3 with GFR of 40 which is below baseline potassium still remains elevated will schedule lokelma for 3 doses, avoid nephrotoxic drugs, renal dosing as needed. recheck labs in am (8) Mass of left ovary: Status: Acute Assessment and plan: suspicious for primary ovarian MRI shows suspicious lesions of left ovary, right ovary, and uterus, including endometrium and/or myometrium.? Tissue sampling recommended for all 3 lesions. will need interventional neuroradiologist oncology referral outpatient. palliative care consulted (9) DVT prophylaxis: Status: Acute Assessment and plan: enoxaparin daily (10) Discharge planning issues: Status: Acute Assessment and plan: Care management is following patient referrals placed for inpatient rehab. is progressing with PT and if no facility will take her we will arrange discharge to home with home health services once she is safe. will need interventional neuroradiologist oncology referral outpatient. discharge discussed with Dr De Guzman Subjective Subjective Patient reports: no new complaints, feels better, tolerating liquids well, tolerating a regular diet, bowel movement and afebrile; denies shortness of breath Interval history since last seen: less confused and likely at baseline Exam Const General: cooperative, no acute distress, frail appearing and ill appearing chronically Nutritional Appearance: obese Orientation: alert, awake and oriented x3 HENMT Head: normal to inspection, normocephalic and atraumatic Mouth: oral mucosae normal Resp Effort & Inspection: normal respiratory effort Auscultation: clear to auscultation bilaterally Cardio Rate: regular rate Rhythm: regular rhythm GI Inspection: normal to inspection, large pannus, obesity and other (colostomy draining well ) Skin Rashes: rashes noted (fungal, skin folds) Neuro General: patient alert, patient awake, oriented Patient Orientation: Person and Place, moves all extremities and no focal motor deficits Speech: speech normal Gait: gait assisted Method: walker Extrem General: edema Psych Appearance: grossly normal Speech and Movement: speech and movement normal Attitude: cooperative Thought Process: normal Thought Content: normal Insight: limited Judgment: limited Objective Last Vital Signs Temp 36.4 C L 12/01/21 07:38 Pulse 82 12/01/21 07:38 Resp 18 12/01/21 07:38 BP 125/70 12/01/21 07:38 Pulse Ox 93 12/01/21 07:38 Laboratory Results - last 24 hr 12/01/21 08:35 Sodium 138 Potassium 5.3 H Chloride 104 Carbon Dioxide 29.3 Anion Gap 4.7 BUN 36 H Creatinine 1.4 H Estimated GFR/1.73 m2 37.18 Glucose 232 H Calcium 9.7
--- NOTE | 2021-12-01 14:13 | INPN_ITS ---
Date of service: 12/01/21 Time of Service: 14:13 PT Notes Visit Reasons: Back Pain Physical Therapy Inpatient Progress Note Date: 12/01/2021 Dates of service: 11/24/2021 through 12/01/2021 Referring Doctor: Angel Luis Ford MD PT Orders: PT CONSULT: Chronic back pain Precautions: Fall. Standard. Activity as tolerated. Patient Profile/Admitting Diagnosis: Raven is a 71-year-old female who presented to the ED on 11/23/2021 due to exacerbation of low back pain and generalized weakness.? Patient is diagnosed with exacerbation of low back pain, hyperkalemia, and hypomagnesemia.? PMHX: All Active Problems? 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 Leukocytosis.? Intermittently febrile. Diverticulitis (Chronic) Recurrent.? S/p high risk hemicolectomy in the setting of sepsis and hypotension 03/22/2013. Complication of a stomal leak resulting in an abdominal abscess.? Readmitted to [facility] 05/03/13 emergently with sepsis syndrome and had? an abdominal abscess drained. ? Completed rehab at [facility] with discharge most recently on after extensive dressing care? of the abdominal wound with a wound VAC.Hepatitis C (Chronic) Recent negative viral count. Depression (Chronic) Vitamin D deficiency (Chronic) History of colostomy (Chronic) Medical History? Anemia (05/03/13) Hemoglobin 8.2. Chronic kidney disease Depression Diabetes mellitus Diabetes mellitus type 2 On Metformin Essential hypertension Fall Gastroesophageal reflux disease GERD (gastroesophageal reflux disease) History of breast cancer History of hepatitis C History of incisional hernia History of renal failure Migraine Morbid obesity Osteopenia Vitamin D deficiency Surgical History? Colectomy H/O mastectomy Hernia Repair, Incisional x2 S/P cholecystectomy Social History/Home Situation: Lives with significant other in a mobile home with a ramp to enter and alternate 3 steps to enter.? Requires assistance from significant other for all transfers using walker.? Short distance ambulation only prior to admission. Equipment Owned/DME: Front-wheeled walker, wheelchair Subjective: Hoping that she does not need to go to a SNF but understands why she may need a short-term stay. Somewhat agreeable to some modifications in the home to allow for consistent ambulation. Objective: General Observation:? Supine in bed.? Colostomy bag in place.? High BMI.? Randle catheter in place.? Mental Status: Alert and oriented as to person, place, time, and purpose. Able to pay attention, focus, and respond appropriately. Pain: 4-5/10 in back ROM: Right Upper Extremity: ? Shoulder Flexion lacks 50% of AROM. Shoulder abduction lacks 50% of AROM. Elbow flexion WFL. Wrist flexion WFL. Functional opening and closing of hand WFL. Left Upper Extremity:? Shoulder Flexion lacks 50% of AROM. Shoulder abduction lacks 50% of AROM. Elbow flexion WFL. Wrist flexion WFL. Functional opening and closing of hand WFL. Right Lower Extremity: Hip flexion unable beyond 90 while seated at edge of bed Hip abduction 10 degrees. Knee flexion 0 to 90 degrees. Ankle dorsiflexion to neutral only. Ankle plantarflexion WFL. Left Lower Extremity: Hip flexion unable beyond 90 while seated at edge of bed Hip abduction 10 degrees. Knee flexion 0 to 90 degrees. Ankle dorsiflexion to neutral only. Ankle plantarflexion WFL. Strength: Right Upper Extremity: Shoulder flexors 3-/5. Shoulder abductors 3-/5. Elbow flexors 3-/5. Elbow extensors 3-/5. Sewing Machine Assembler strong. Left Upper Extremity: Shoulder flexors 3-/5. Shoulder abductors 3-/5. Elbow flexors 3-/5. Elbow extensors 3-/5. Sewing Machine Assembler strong. Right Lower Extremity: Hip flexors 3-/5. Hip abductors 3-/5. Knee flexors 3-/5. Knee extensor 3-/5. Ankle dorsiflexors 3-/5. Ankle plantarflexors 4-/5. Left Lower Extremity: Hip flexors 3-/5. Hip abductors 3-/5. Knee flexors 3-/5. Knee extensor 3-/5. Ankle dorsiflexors 3-/5. Ankle plantarflexors 4-/5. Bed Mobility/Transfers: Sit to stand supervision Stand to sit supervision Bed to reclining chair supervision Gait: Tolerated 25 steps +30 steps +30 steps + 52 steps with wheelchair follow using bariatric front-wheeled walker. Mild shortness of breath and onset of fatigue that required seated rests. Wheelchair mobility: Able to perform self propulsion of wheelchair about 80 feet using B UE and without foot rests to allow for increased B LE mobility. Balance: Static Sitting: Good Dynamic Sitting: Good Static Standing: Fair Dynamic Standing: Fair Special Tests: Mobility Limitations Standardized Measure [facility] AM-PAC 6 clicks Basic Mobility Inpatient Short Form: Raw Score: 23 CMS Score: 11% deficit? ? ? Informed Consent/Education:? Patient was instructed in purpose of PT consult and plan of care. Agreeable to proceed with established PT POC to achieve personal goals. ASSESSMENT: Patient demonstrates functional mobility improvements as shown by mobility level above, improved activity tolerance, decrease report of low back pain, and improved cognition. Patient presents with clinical signs and symptoms consistent with current/admitting diagnoses that have resulted to mobility limitations, gait instability, generalized weakness, and overall ADL decline as demonstrated by the following impairment level findings: 1.? Decreased strength to B LE major muscle groups 2.? Impaired standing balance 3.? Limitation of joint range of motion in back and B UE/LE 4.? Shortness of breath 5.? Decreasing low back pain intensity Impairments are contributing to the following functional limitations: 1.? Difficulty with ambulation without assistive device 2.? Increased completion time for mobility ADL performance 3.? Increased risk for falls Patient is assessed as a 92531 high complexity based on the following: History: 71-year-old female with past medical history as indicated above Examination: Demonstrable impairment in strength, balance, and mobility level with underlying impairments and functional limitations as exhibited above as well as deficit score of 69% utilizing the [facility] Mobility Inpatient Short Form Presentation: Evolving Decision Makin high complexity Goals: Goals X1 week 1. Supine-Sit independent NOT MET, CONTINUE 2. Sit-Supine independent NOT MET, CONTINUE 3. Sit-Stand standby assist MET, UPGRADE to independent 4. Stand-Sit with standby assist with bariatric FWW MET, UPGRADE to independent 5. Bed-Chair standby assist with bariatric FWW MET, UPGRADE to independent 6. Chair-Bed standby assist with bariatric FWW MET, UPGRADE to independent 7. Standby assist with bariatric FWW for gait on level surface with use of FWW for at least 30 feet without report of pain nor dyspnea MET, UPGRADE to independent for 75 feet using bariatric FWW 8. Good static and dynamic standing balance/tolerance NOT MET, CONTINUE Plan of Care/Treatment Plan: 1-2x/day, 7 days/week x 1 week. Plan of care has been reviewed with the OUTDOOR ADVERTISING LEASING AGENT providing the service under Physical Therapy direction. Continue with Physical Therapy intervention for pain management as needed, strengthening, bed mobility, transfers, gait, stairs, balance training, and use of assistive device. DISCHARGE RECOMMENDATIONS: [] ? Home with no services [] [X] ? Home with services. If patient decides to come home after short term rehab, will need to work with PT to modify home environment to encourage increased ambulation using FWW. [] ? Home with outpatient PT [] [X] ? SNF for continued rehabilitation.? Patient will benefit from [facility] facility placement for continued skilled physical therapy services in order to progress mobility level, strength, and balance in preparation for a safe discharge to home. [] ? [facility] [] [] ? SNF versus LTC based on ability to participate and progress [] TREATMENT CODE/TIME: 83425 x 44 minutes beginning at 14:13 PM. Thank you for the opportunity to participate in the care of this patient. Selene Collado PT, DPT, CLT [facility] [place], [place]
[2021-12-01 15:35] VITALS: BP 149/81; PULSE 88; RESP 19; TEMP 36.6; O2SAT 96
[2021-12-01] MEDS: Sodium Zirconium Cyclosilicate 10 GM PKT PO ×2 (15:40→22:13)
[2021-12-01] MEDS: Lidocaine 5% Patch 2 PATCH TP (15:42)
[2021-12-01] MEDS: QUEtiapine 25 MG TAB 12.5 MG PO (20:35)
[2021-12-01] MEDS: Simvastatin 40 MG TAB PO (20:35)
[2021-12-01] MEDS: Insulin Glargine 300 UNITS/3 ML PEN 50 UNITS SC (20:38)
[2021-12-01 23:32] VITALS: BP 111/73; PULSE 75; RESP 18; TEMP 36.6; O2SAT 92
[2021-12-02] MEDS: Sodium Zirconium Cyclosilicate 10 GM PKT PO (06:03)
[2021-12-02 07:32] VITALS: BP 112/62; PULSE 93; RESP 18; TEMP 36.5; O2SAT 98
[2021-12-02] MEDS: Acetaminophen 325 MG TAB 650 MG PO ×3 (07:53→15:31)
[2021-12-02] MEDS: Aspirin 81 MG CHEW PO (07:54)
[2021-12-02] MEDS: Calcium 600mg/Vit D 200U TAB 1 TAB PO (07:54)
[2021-12-02] MEDS: Cholecalciferol (Vitamin D3) 1,000 UNIT TAB 4000 UNITS PO (07:54)
[2021-12-02] MEDS: DULoxetine 30 MG CAP 60 MG PO (07:54)
[2021-12-02] MEDS: Magnesium Oxide 400 MG TAB PO (07:55)
[2021-12-02] MEDS: Metoprolol CR 25 MG TABCR PO (07:55)
[2021-12-02] MEDS: Nystatin POWDER 60 GM JAR TP ×2 (07:55→15:31)
[2021-12-02] MEDS: Pregabalin 50 MG CAP PO ×2 (07:55→15:31)
[2021-12-02] MEDS: Insulin Aspart 300 UNITS/3 ML PEN SC ×2 (08:37→12:17)
[2021-12-02] MEDS: Insulin Glargine 300 UNITS/3 ML PEN 50 UNITS SC (08:38)
[2021-12-02 10:40] LABS: Potassium 4.9 mmol/L (3.5-5.1)
--- NOTE | 2021-12-02 12:43 | W.PM.DS.N ---
Date of service: 12/02/21 Time of Service: 12:43 DS: Diagnosis Discharge Diagnosis (1) Delirium: Status: Resolved (2) Back pain: Status: Acute (3) Morbid obesity: Status: Chronic (4) Diabetes mellitus type 2: Status: Acute (5) Depression: Status: Chronic (6) Essential hypertension: Status: Acute (7) Chronic kidney disease: Status: Chronic (8) Mass of left ovary: Status: Acute Discharge Plan Disposition Patient Disposition: HOME W/HOME HEALTH SERVICE Condition: Stable Discharge Details Reason For Visit: Back Pain Admit Date/Time: 11/23/21 23:23 Admit Provider: Angel Luis Ford Attending Provider: Angel Luis Ford Primary Care Provider: Mary Ann Luo Hospital Course Hospital Course: Ms Dumont is a 71 year old female with PMHx of CKD III with episodes of recurrent hyperkalemia, Type 2 DM, memory impairement without a formal diagnosis of dementia, and obesity with BMI of 57.2 kg/m2, who was admitted to [facility] hospitalist service on 11/23/21 after being discharged home on 11/09/21 having refused to go to a SNF on discharge and failing to thrive at home, found by daughter to be sitting at home in her chair, not getting up and not able to care for herself due to her back pain. Additionally, she was found to have a potassium of 5.9, magnesium of 0.9. Her electrolyte abnormalities were addressed and the patient's pain was treated with IV dilaudid in the ED. The patient was evaluated by physical therapy, was treated with scheduled tylenol and with lidocaine patches. Her imaging revealed bilateral ovarian masses and heterogenous appearance of the uterus, malignancy not excluded, but it ruled out acute spinal pathology. MRI of the pelvis was obtained, confirming the findings. Outpatient referral for CLINICAL APPLICATION SPECIALIST was placed ([facility]) as the patient's BMI of 57.2 kg/m2 makes her too high of a surgical/anesthesia risk to undergo this workup in our facility. Her hyperkalemia was treated with veltassa and lokelma throughout hospitalization as well as with IVF. She was noted to be more confused. UTI was ruled out and, ultimately, as the patient was thought to have underlying memory/cognitive impairment, it is now felt to have been due to delirium due to change of environment, change of sleep schedules. She was initiated on low dose seroquel (12.5 mg PO qpm) with significant effect. She is medically stable for discharge home today with resumption of home health nursing and PT. Care for patient as well as completion of her discharge summary took 45 minutes on the day of discharge. Home Meds and New Rx's Prescriptions: New lidocaine 5 % Adhesive Patch,Medicated 2 patch topical Q24H Qty: 60 0RF Rx Instructions: apply to painful area on back on for 12 hrs off for 12 hrs quetiapine 25 mg Tablet 12.5 mg PO QPM Qty: 15 0RF Lokelma 10 gram powder in packet 10 g PO DAILY Qty: 30 0RF Continued simvastatin [Zocor] 40 MG tablet 40 mg PO HS 0RF calcium carbonate-vitamin D3 [Calcium 600 + D(3)] 1 EACH tablet 1 ea PO DAILY 0RF tramadol 50 MG tablet 100 mg PO HS PRN (Reason: Pain) 0RF insulin lispro [Humalog KwikPen Insulin] 100 unit/mL Insulin Pen 12 - 25 unit SUBCUT QAC 0RF Rx Instructions: sliding scale Lantus Solostar U-100 Insulin 100 unit/mL (3 mL) insulin pen 56 unit SUBCUT BID 0RF Label Comments: INJECT 56 UNITS SUBCUTANEOUSLY TWO TIMES A DAY- Once in the am and once in the pm aspirin 81 mg Tablet 81 mg PO DAILY 0RF albuterol sulfate [Ventolin HFA] 90 mcg/actuation Hfa Aerosol Inhaler 2 puff INHALATION Q4H 0RF cholecalciferol (vitamin D3) 50 mcg (2,000 unit) tablet 4,000 unit PO DAILY 0RF Label Comments: TAKE TWO TABLETS BY MOUTH EVERY DAY duloxetine 60 mg capsule,delayed release(DR/EC) 60 mg PO BID 0RF Label Comments: TAKE ONE CAPSULE BY MOUTH TWICE A DAY glipizide 5 mg tablet 10 mg PO BID 0RF Label Comments: TAKE TWO TABLETS BY MOUTH TWICE A DAY omeprazole 40 mg capsule,delayed release(DR/EC) 40 mg PO DAILY 0RF Label Comments: TAKE ONE CAPSULE BY MOUTH EVERY DAY pregabalin 50 mg capsule 50 mg PO TID 0RF Label Comments: TAKE ONE CAPSULE BY MOUTH THREE TIMES A DAY metoprolol succinate 25 mg Tablet Extended Release 24 Hr 25 mg PO DAILY Qty: 30 0RF Changed magnesium oxide 400 mg magnesium Tablet 400 mg PO BID Qty: 60 0RF Discharge Instructions Instructions: Quetiapine (By mouth), Sodium Zirconium Cyclosilicate (By mouth), Potassium Content of Foods List (DC), Chronic Kidney Disease Diet (DC), Acute Delirium (DC), Back Pain (ED) Additional Instructions: Follow up with your PCP In 1-2 weeks. Follow up with [facility] gynecology for further investigation of your pelvic lesions. Return to the hospital with any fever, bleeding, chest pain, shortness of breath. Follow a low potassium diet. Care Plan Goals: Resumption of home health nursing and PT. Stand Alone Forms: Nursing Discharge Form Referrals: [facility] [OTHER] - (Office will call you with appointment Lesions involving B ovaries, uterus, endometrium +/- myometrium. Requiring biopsy, unable to obtain at [facility] due to patient's weight. Referral to CLINICAL APPLICATION SPECIALIST/ONC) Mary Ann Luo [Primary Care Provider] - 12/24/21 3:45 pm [facility] [Provider Group] Activity:: Activity as Tolerated Equipment/Supplies:: No Equipment Needed Diet:: carb consistent low potassium diet Discharge Orders Discharge Orders: Discharge Order (Routine); Ordered 12/02/21 Ordered By: Luisa Luna DS: Summary Time Spent with Patient providing and/or coordinating discharge services: Greater than 30 minutes Status at Discharge Functional status at discharge: uses cane/walker Overall status at discharge: patient is back to baseline Mental Status: mental status grossly normal Speech and Movement: speech and movement normal Mood: congruent mood Affect: normal affect Exam Narrative Exam Narrative: General: Pleasant elderly obese female who appears comfortable, not in acute distress, A&Ox3 HEENT: EOMI, MMM Heart: RRR, no m/r/g Lungs: faint rales at B bases Abdomen: soft, nontender, nondistended Extremities: no edema BLEs Psych Mental Status: mental status grossly normal Speech and Movement: speech and movement normal Mood: congruent mood Affect: normal affect DS: Data Vitals/I&O Vitals and I&O: Vital Signs Temperature 36.5 C 12/02/21 07:32 Temperature Source Tympanic 12/02/21 07:32 Pulse 93 H 12/02/21 07:32 Pulse Rhythm Regular 12/02/21 08:31 Pulse 111 H 11/24/21 00:50 Respiratory Rate 18 12/02/21 07:32 Respiratory Effort Non-Labored 12/02/21 08:31 Respiratory Depth Normal 12/02/21 08:31 Respiratory Pattern Normal 12/02/21 08:31 Blood Pressure 112/62 12/02/21 07:32 Blood Pressure Mean 66 11/24/21 00:16 Blood Pressure Position Supine 11/23/21 20:13 Pulse Oximetry 98 12/02/21 07:32 Oxygen Delivery Method Room Air 12/02/21 07:32 Oxygen Flow Rate 0 12/02/21 07:32 Pain Level 5 12/02/21 12:18 Comment 11/30/21 22:41 Intake & Output 12/01/21 12/02/21 12/02/21 23:59 11:59 23:59 Intake Total 500 / 740 480 / 480 Output Total 400 / 1200 Balance 100 / -460 480 / 480 Intake: IV 500 / 500 Oral 480 / 480 Output: Urine 300 / 700 Stool 100 / 500 Other: Urine Color Yellow Yellow Urine Appearance Clear Clear Urine Odor Normal None Voiding Methods Bedside Commode Bedside Commode Data Completed and Pending Completed studies during hospitalization [Text1]: CT renal colic w/o contrast: 1.? Interval increase in size of left ovarian cystic mass with septation, suspicious for neoplasm. 2.? Heterogeneous lesions within the uterus, better seen on previous exam.? Malignancy not excluded. 3.? No acute abnormality of the lumbar spine.? Degenerative changes and mild scoliosis. CT lumbar spine: 1.? Interval increase in size of left ovarian cystic mass with septation, suspicious for neoplasm. 2.? Heterogeneous lesions within the uterus, better seen on previous exam.? Malignancy not excluded. 3.? No acute abnormality of the lumbar spine.? Degenerative changes and mild scoliosis. US pelvis: 1. The patient reports a history of bilateral oophorectomy.? Please correlate with surgical history. 2. Multi-septated cystic 8.1 x 8.4 x 8.4 cm left adnexal lesion.? Neoplasm cannot be excluded.? This may be of ovarian origin or possibly arise from the uterus.? A non gynecologic pelvic mass should also be considered. 3. Marked thickening of the endometrium in this postmenopausal patient.? Gynecologic consult is recommended. MR abdomen: No hepatic lesion identified.? Left upper quadrant lesion identified on CT probably represents old fat necrosis. MRI pelvis: Suspicious lesions of left ovary, right ovary, and uterus, including endometrium and/or myometrium.? Tissue sampling recommended for all 3 lesions. No gross pelvic lymphadenopathy identified.? No gross fat invasion. 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 Leukocytosis. Intermittently febrile. Diverticulitis (Chronic) Recurrent. S/p high risk hemicolectomy in the setting of sepsis and hypotension 03/22/2013. Complication of a stomal leak resulting in an abdominal abscess. Readmitted to [facility] 05/03/13 emergently with sepsis syndrome and had an abdominal abscess drained. Completed rehab at [facility] with discharge most recently on after extensive dressing care of the abdominal wound with a wound VAC. Hepatitis C (Chronic) Recent negative viral count. Depression (Chronic) Vitamin D deficiency (Chronic) History of colostomy (Chronic) Medical History Anemia (05/03/13) Hemoglobin 8.2. Anemia Depression Diabetes mellitus Fall Gastroesophageal reflux disease GERD (gastroesophageal reflux disease) History of breast cancer History of hepatitis C History of incisional hernia History of renal failure Migraine Morbid obesity Osteopenia Vitamin D deficiency Surgical History Colectomy H/O mastectomy Hernia Repair, Incisional x2 S/P cholecystectomy Family History Mother No problems noted. Father No problems noted. Social History Smoking/Tobacco Use Status: Former Tobacco Use Smoking risk assessment performed?: Yes Alcohol Intake: never Drug use: Never Substance use type: does not use Do you feel safe at home: Yes Do you feel safe in your relationship?: Yes
--- NOTE | 2021-12-02 14:40 | PDOC.CMDIS ---
- If Service Date Differs Date of service: 12/02/21 Time of Service: 14:40 LACE Index Scoring Tool - Questions: Length of Stay (in days): 7 - 13 Acuity (Admit via E.D.?): Yes Comorbidities: Diabetes w/o Complication, Any Tumor, Liver or Renal Disease E.D. Visits: 3 - Answers: Total Score: 16 Risk of Readmission: High Risk Care Management Discharge Reason for Hospitalization: Back pain Discharge Plan: Raven will discharge home with a resumption of home health services. She will follow up with her PCP and plan of care and transport with family. Patient/Family Education Needs: Review discharge instructions regarding activity levels and medications, discussion of self care needs including ask me three.
--- NOTE | 2021-12-02 16:00 | PT.INDS ---
Date of service: 12/02/21 PT Notes Visit Reasons: Back Pain Physical Therapy Inpatient Discharge Summary Date: 12/02/2021 Dates of service: 11/24/2021 through 12/01/2021 Referring Doctor: Angel Luis Ford MD PT Orders: PT CONSULT: Chronic back pain Precautions: Fall. Standard. Activity as tolerated. Patient Profile/Admitting Diagnosis: Raven is a 71-year-old female who presented to the ED on 11/23/2021 due to exacerbation of low back pain and generalized weakness.? Patient is diagnosed with exacerbation of low back pain, hyperkalemia, and hypomagnesemia.? PMHX: All Active Problems? 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 Leukocytosis.? Intermittently febrile. Diverticulitis (Chronic) Recurrent.? S/p high risk hemicolectomy in the setting of sepsis and hypotension 03/22/2013. Complication of a stomal leak resulting in an abdominal abscess.? Readmitted to [facility] 05/03/13 emergently with sepsis syndrome and had? an abdominal abscess drained. ? Completed rehab at [facility] with discharge most recently on after extensive dressing care? of the abdominal wound with a wound VAC.Hepatitis C (Chronic) Recent negative viral count. Depression (Chronic) Vitamin D deficiency (Chronic) History of colostomy (Chronic) Medical History? Anemia (05/03/13) Hemoglobin 8.2. Chronic kidney disease Depression Diabetes mellitus Diabetes mellitus type 2 On Metformin Essential hypertension Fall Gastroesophageal reflux disease GERD (gastroesophageal reflux disease) History of breast cancer History of hepatitis C History of incisional hernia History of renal failure Migraine Morbid obesity Osteopenia Vitamin D deficiency Surgical History? Colectomy H/O mastectomy Hernia Repair, Incisional x2 S/P cholecystectomy Social History/Home Situation: Lives with significant other in a mobile home with a ramp to enter and alternate 3 steps to enter.? Requires assistance from significant other for all transfers using walker.? Short distance ambulation only prior to admission. Equipment Owned/DME: Front-wheeled walker, wheelchair Subjective: NT. See most recent PERFORATOR OPERATOR notes. Objective: General Observation:? NT. See most recent PERFORATOR OPERATOR notes. Mental Status: NT. See most recent PERFORATOR OPERATOR notes. Pain: NT. See most recent PERFORATOR OPERATOR notes. ROM: Right Upper Extremity: ? Shoulder Flexion lacks 50% of AROM. Shoulder abduction lacks 50% of AROM. Elbow flexion WFL. Wrist flexion WFL. Functional opening and closing of hand WFL. Left Upper Extremity:? Shoulder Flexion lacks 50% of AROM. Shoulder abduction lacks 50% of AROM. Elbow flexion WFL. Wrist flexion WFL. Functional opening and closing of hand WFL. Right Lower Extremity: Hip flexion unable beyond 90 while seated at edge of bed Hip abduction 10 degrees. Knee flexion 0 to 90 degrees. Ankle dorsiflexion to neutral only. Ankle plantarflexion WFL. Left Lower Extremity: Hip flexion unable beyond 90 while seated at edge of bed Hip abduction 10 degrees. Knee flexion 0 to 90 degrees. Ankle dorsiflexion to neutral only. Ankle plantarflexion WFL. Strength: Right Upper Extremity: Shoulder flexors 3-/5. Shoulder abductors 3-/5. Elbow flexors 3-/5. Elbow extensors 3-/5. Recovery Agent strong. Left Upper Extremity: Shoulder flexors 3-/5. Shoulder abductors 3-/5. Elbow flexors 3-/5. Elbow extensors 3-/5. Recovery Agent strong. Right Lower Extremity: Hip flexors 3-/5. Hip abductors 3-/5. Knee flexors 3-/5. Knee extensor 3-/5. Ankle dorsiflexors 3-/5. Ankle plantarflexors 4-/5. Left Lower Extremity: Hip flexors 3-/5. Hip abductors 3-/5. Knee flexors 3-/5. Knee extensor 3-/5. Ankle dorsiflexors 3-/5. Ankle plantarflexors 4-/5. Bed Mobility/Transfers: Sit to stand supervision Stand to sit supervision Bed to reclining chair supervision Gait: Tolerated 25 steps +30 steps +30 steps + 52 steps with wheelchair follow using bariatric front-wheeled walker.? Mild shortness of breath and onset of fatigue that required seated rests.? Wheelchair mobility:? Able to perform self propulsion of wheelchair about 80 feet using B UE and without foot rests to allow for increased B LE mobility. Balance: Static Sitting: Good Dynamic Sitting: Good Static Standing: Fair Dynamic Standing: Fair ASSESSMENT: Patient demonstrates functional mobility improvement during this episode of care as evidenced by the mobility level above and goal status below. She will however need continued services to address remaining impairments to maximize mobility level and maximize ability to stay home Patient demonstrates functional mobility improvements as shown by mobility level above, improved activity tolerance, decrease report of low back pain,? and improved cognition.? Patient presents with clinical signs and symptoms consistent with current/admitting diagnoses that have resulted to mobility limitations, gait instability, generalized weakness, and overall ADL decline as demonstrated by the following impairment level findings: 1.? Decreased strength to B LE major muscle groups 2.? Impaired standing balance 3.? Limitation of joint range of motion in back and B UE/LE 4.? Shortness of breath 5.? Decreasing low back pain intensity Impairments are contributing to the following functional limitations: 1.? Difficulty with ambulation without assistive device 2.? Increased completion time for mobility ADL performance 3.? Increased risk for falls Goals: Goals X1 week 1. Supine-Sit independent?NOT MET 2. Sit-Supine independent?NOT MET 3. Sit-Stand standby assist?MET 4. Stand-Sit with standby assist with bariatric FWW?MET 5. Bed-Chair standby assist with bariatric FWW?MET 6. Chair-Bed standby assist with bariatric FWW?MET 7. Standby assist with bariatric FWW for gait on level surface with use of FWW for at least 30 feet without report of pain nor dyspnea?MET 8. Good static and dynamic standing balance/tolerance??NOT MET DISCHARGE RECOMMENDATIONS: [] ? Home with no services [] [X] ? Home with services.? If patient decides to come home after short term rehab,? will need to work with PT to modify home environment to encourage increased ambulation using FWW. [] ? Home with outpatient PT [] [X] ? SNF for continued rehabilitation.? Patient will benefit from intermediate facility placement for continued skilled physical therapy services in order to progress mobility level, strength, and balance in preparation for a safe discharge to home. [] ? Intermediate Care [] [] ? SNF versus LTC based on ability to participate and progress [] TREATMENT CODE/TIME: HI Thank you for the opportunity to participate in the care of this patient. Selene Collado PT, DPT, CLT [facility] [place], [place]
== END 2021-12-02 16:07 | disposition home health service (06) | DRG 552 ==
LOC: ER 11-24 00:27 → MS 11-24 00:31
PROVIDERS: Family Medicine; Internal Medicine; Nurse Practitioner Acute Care; Admitting Provider General Practice; Emergency Provider Emergency Medicine; PCP Family Medicine; Visit Provider General Practice
DX: M54.50 Low back pain, unspecified (principal); F05 Delirium due to known physiological condition; Z68.43 Body mass index [BMI] 50.0-59.9, adult; R41.89 Other symptoms and signs involving cognitive functions and awareness; N18.30 Chronic kidney disease, stage 3 unspecified; E66.01 Morbid (severe) obesity due to excess calories; R41.3 Other amnesia; E87.5 Hyperkalemia; E83.42 Hypomagnesemia; Z79.4 Long term (current) use of insulin; G89.29 Other chronic pain; E78.5 Hyperlipidemia, unspecified; F32.9 Major depressive disorder, single episode, unspecified; E55.9 Vitamin D deficiency, unspecified; D64.9 Anemia, unspecified; B18.2 Chronic viral hepatitis C; I12.9 Hypertensive chronic kidney disease with stage 1 through stage 4 chronic kidney disease, or unspecified chronic kidney disease; E11.22 Type 2 diabetes mellitus with diabetic chronic kidney disease; Z79.84 Long term (current) use of oral hypoglycemic drugs; K21.9 Gastro-esophageal reflux disease without esophagitis; G43.909 Migraine, unspecified, not intractable, without status migrainosus; Z85.3 Personal history of malignant neoplasm of breast; D49.59 Neoplasm of unspecified behavior of other genitourinary organ; R93.89 Abnormal findings on diagnostic imaging of other specified body structures
CPT/HCPCS: 36415; 36416; 51701; 72197; 74183; 80048; 80053; 80307; 82550; 82805; 82962; 83690; 87635; 94640; 96361; 96365; 96366; 96375; 97110; 97161; 97166; 97530; 97535; 99285; J1650; 74176; 76856; 80320; 81003; 81015; 82248; 83735; 84132; 84443; 85025; 85049; 99222; 99233; 99239; J1885; J1941; J2270; J2405; J3490

== ENCOUNTER 2021-12-09 16:34 | Outpatient (REF) | payer MEDICARE, MEDICAID, SELFPAY ==
[2021-12-09 13:59] LABS: ALT 18 U/L (14-59); AST 19 U/L (15-37); Albumin 2.7 g/dL (3.4-5.0); Alkaline Phosphatase 93 U/L (46-116); Anion Gap 4.6 mmol/L (3-11); BUN 15 mg/dL (7-18); Bilirubin, Total 0.3 mg/dL (0.2-1.0); CO2 32.4 mmol/L (21.0-32.0); CREATININE 1.2 mg/dL (0.55-1.02); Calcium 7.4 mg/dL (8.5-10.1); Chloride 106 mmol/L (98-107); Estimated GFR 44.41 (mL/min/1.73m2); Glucose 122 mg/dL (74-106); Potassium 4.4 mmol/L (3.5-5.1); Sodium 143 mmol/L (136-145); Total Protein 6.2 g/dL (6.4-8.2)
== END 2021-12-09 16:35 | disposition home or self-care (01) ==
LOC: LBN 16:34
PROVIDERS: PCP Family Medicine; Visit Provider Family Medicine
DX: E11.22 Type 2 diabetes mellitus with diabetic chronic kidney disease (principal); E87.5 Hyperkalemia; D63.1 Anemia in chronic kidney disease; N18.30 Chronic kidney disease, stage 3 unspecified
CPT/HCPCS: 80053

== ENCOUNTER 2022-03-16 17:52 | Inpatient (IN) | payer MEDICARE, MEDICAID, SELFPAY ==
[2022-03-16] VITALS (29 sets, daily range): BP systolic 93–118; BP diastolic 44–84; PULSE 57–112; RESP 13–25; TEMP 36.8–36.9; O2SAT 89–100
--- NOTE | 2022-03-16 17:45 | RT.EKG_ITS ---
APPROVED REPORT Exam: Resting ECG Reason for Exam: dizzy Patient Location: E HR:101 bpm ECG Measurements Heart Rate 101 AXIS MN 146 P 75 QRSd 76 QRS 50 QT 331 T 47 QTc 429 Conclusion Sinus tachycardia...rate> 99 Low voltage, precordial leads...precordial leads <1.0mV
--- NOTE | 2022-03-16 17:45 | RT.EKG_ITS ---
APPROVED REPORT Exam: Resting ECG Reason for Exam: dizzy Patient Location: E HR:98 bpm ECG Measurements Heart Rate 98 AXIS WY 156 P 75 QRSd 77 QRS 49 QT 346 T 49 QTc 441 Conclusion Sinus rhythm...normal P axis, V-rate 60- 99 Normal Electrocardiogram
[2022-03-16 18:20] LABS: Abs Immature Grans 0.09 10^3/uL (0.0-0.06); Absolute Eosinophil Count 0.42 10^3/uL (0.0-0.7); Absolute Lymphocyte Count 1.46 10^3/uL (1.2-3.4); Absolute Monocyte Count 0.76 10^3/uL (0.1-0.8); Absolute Neutrophil Count 10.76 10^3/uL (1.2-6.7); Basophils % 0.4; Eosinophils % 3.1; HCT 31.4 % (36.0-46.0); HGB 8.8 g/dL (11.2-15.7); Immature Grans % 0.7; Lymphocytes % 10.8; MCH 23.2 pg (27.0-33.0); MCV 83 fL (80-95); MPV 9.8 fL (8.0-11.0); Monocytes % 5.6; Neutrophils % 79.4; Platelet Count 188 10^3/uL (130-400); RDW 17.1 % (11.7-14.6); RDW-SD 51.4 fL; WBC 13.55 10^3/uL (4.4-10.8)
[2022-03-16 18:21] LABS: Absolute Basophil Count 0.05 10^3/uL (0.0-0.2)
[2022-03-16 18:46] LABS: ALT 15 U/L (14-59); AST 18 U/L (15-37); Albumin 2.6 g/dL (3.4-5.0); Alkaline Phosphatase 96 U/L (46-116); Anion Gap 8.3 mmol/L (3-11); BUN 24 mg/dL (7-18); Bilirubin, Total 0.3 mg/dL (0.2-1.0); CO2 28.7 mmol/L (21.0-32.0); CREATININE 2.3 mg/dL (0.55-1.02); Chloride 101 mmol/L (98-107); Glucose 251 mg/dL (74-106); Magnesium 1.3 mg/dL (1.8-2.4); Potassium 5.1 mmol/L (3.5-5.1); Sodium 138 mmol/L (136-145); TSH (W/Ref FT4) 1.59 uIU/mL (0.36-3.74); Total Protein 6.9 g/dL (6.4-8.2); Troponin I < 50 ng/L (<or=60)
[2022-03-16 19:21] LABS: D-Dimer 1413 ng/mlFEU (<500)
--- NOTE | 2022-03-16 19:30 | DI.CT_ITS ---
Exam(s) CT HEAD WO EXAM: CT HEAD WO CLINICAL HISTORY: fall, head trauma. TECHNIQUE: Imaging Protocol: Axial computed tomography images with coronal and sagittal reformatted images were created and reviewed COMPARISON: CT CT HEAD WO from 11/04/2021 FINDINGS: Ventricles and Extra axial spaces: Normal in size and morphology for the patient's age. Hemorrhage: None. Cerebral parenchyma: Minimal white matter changes of small vessel disease. Midline shift: None. Brainstem/Cerebellum: Small area of hypodensity likely old infarct. There is streak artifact in this location.. Calvarium: Normal. Visualized Paranasal sinuses/Mastoids: Clear. Soft Tissues: Unremarkable. IMPRESSION: No acute intracranial process. RADIATION DOSE DELIVERED: 646.65mGy.cm Total DLP DATA REPOSITORY: All CT scans at this facility are submitted to the National Radiology Data Registry (NRDR) Dose Index Registry (DIR) with the [employer] (ACR). RADIATION OPTIMIZATION: All CT scans at this facility use at least one of these dose optimization te chniques: automated exposure control; mA and/or kV adjustment per patient size (includes targeted exa ms where dose is matched to clinical indication); or iterative reconstruction.
[2022-03-16] MEDS: Normal Saline 500 ML IV (19:33)
--- NOTE | 2022-03-16 19:34 | W.ED.GENAD ---
Discharge Plan Disposition Patient Disposition: [facility] INPATIENT Condition: Serious Discharge Details Clinical Impression: Dizziness, Anemia, SANDY (acute kidney injury), Hypomagnesemia, D-dimer, elevated Primary Care Provider: Mary Ann Luo ED Provider: Pa Evangelista Home Meds and New Rx's Prescriptions: No Action simvastatin [Zocor] 40 MG tablet 40 mg PO HS calcium carbonate-vitamin D3 [Calcium 600 + D(3)] 1 EACH tablet 1 ea PO DAILY insulin lispro [Humalog KwikPen Insulin] 100 unit/mL Insulin Pen 12 - 25 unit SUBCUT BID Rx Instructions: sliding scale lidocaine 5 % Adhesive Patch,Medicated 2 patch topical Q24H Qty: 60 0RF Rx Instructions: apply to painful area on back on for 12 hrs off for 12 hrs quetiapine 25 mg Tablet 12.5 mg PO QPM Qty: 15 0RF magnesium oxide 400 mg magnesium Tablet 400 mg PO BID Qty: 60 0RF lisinopril 10 mg tablet 1 tab PO DAILY insulin glargine [Lantus Solostar U-100 Insulin] 100 unit/mL (3 mL) insulin pen 56 unit SUBCUT BID Label Comments: INJECT 56 UNITS SUBCUTANEOUSLY TWO TIMES A DAY- Once in the am and once in the pm aspirin 81 mg Tablet 81 mg PO DAILY albuterol sulfate [Ventolin HFA] 90 mcg/actuation Hfa Aerosol Inhaler 2 puff INHALATION Q4H cholecalciferol (vitamin D3) 50 mcg (2,000 unit) tablet 4,000 unit PO DAILY Label Comments: TAKE TWO TABLETS BY MOUTH EVERY DAY duloxetine 60 mg capsule,delayed release(DR/EC) 60 mg PO BID Label Comments: TAKE ONE CAPSULE BY MOUTH TWICE A DAY glipizide 5 mg tablet 10 mg PO BID Label Comments: TAKE TWO TABLETS BY MOUTH TWICE A DAY omeprazole 40 mg capsule,delayed release(DR/EC) 40 mg PO DAILY Label Comments: TAKE ONE CAPSULE BY MOUTH EVERY DAY pregabalin 50 mg capsule 50 mg PO TID Label Comments: TAKE ONE CAPSULE BY MOUTH THREE TIMES A DAY metoprolol succinate 25 mg Tablet Extended Release 24 Hr 25 mg PO DAILY Qty: 30 0RF Medical Decision Making 1900 --72-year-old female with multiple medical problems including history of diabetes, DVT, hypertension, hyperlipidemia, hepatitis C, chronic kidney disease, here generally not feeling well the past 3 days, dizzy today with fall. Patient was pale and diaphoretic per EMS. Patient is now tachycardic with borderline low blood pressure. Will give IV fluid bolus. Considered arrhythmia and ACS. EKG was reviewed and interpreted by me: Sinus tachycardia 101 bpm, low voltage, no STEMI, nondiagnostic. Labs reviewed and creatinine is significantly elevated from baseline. Concern for acute on chronic renal disease. Consider acute life-threatening pulmonary embolism. D-dimer is elevated but unfortunately given kidney function, unable to CT. Plan for consider V/Q vs CT if GFR improved. I will initiate treatment with Lovenox. Plan to obtain CT head to assess for acute intracranial traumatic hemorrhage given fall prior to initiation of Lovenox. Patient has hypomagnesemia which may be contributing to weakness. I will give magnesium 2 g IV. -- CT head neg. I called and spoke with Dr. Sorto, discussed ED presentation and course, he will admit the patient. He request bridging orders be placed to the floor with IV fluid infusion at 125 mL/h. Lab Data Lab results reviewed: Yes I reviewed the patient's lab results. Labs: Laboratory Tests Range/Units 03/16/22 03/16/22 03/16/22 18:14 18:14 18:45 WBC (4.4-10.8) 10^3/uL 13.55 H RBC (3.93-5.22) 10^6/uL 3.80 L Hgb (11.2-15.7) g/dL 8.8 L Hct (36.0-46.0) % 31.4 L MCV (80-95) fL 83 MCH (27.0-33.0) pg 23.2 L MCHC (32.0-36.0) % 28.0 L RDW (11.7-14.6) % 17.1 H Plt Count (130-400) 10^3/uL 188 MPV (8.0-11.0) fL 9.8 Immature Gran % 0.7 Neutrophils % 79.4 Lymphocytes % 10.8 Monocytes % 5.6 Eosinophils % 3.1 Basophils % 0.4 Nucleated RBC % (0.0-0.3) % 0.0 Absolute Neutrophils (1.2-6.7) 10^3/uL 10.76 H Absolute Lymphocytes (1.2-3.4) 10^3/uL 1.46 Absolute Monocytes (0.1-0.8) 10^3/uL 0.76 Absolute Eosinophils (0.0-0.7) 10^3/uL 0.42 Absolute Basophils (0.0-0.2) 10^3/uL 0.05 D-Dimer (<500) ng/mlFEU 1413 H Sodium (136-145) mmol/L 138 Potassium (3.5-5.1) mmol/L 5.1 Chloride (98-107) mmol/L 101 Carbon Dioxide (21.0-32.0) mmol/L 28.7 Anion Gap (3-11) mmol/L 8.3 BUN (7-18) mg/dL 24 H Creatinine (0.55-1.02) mg/dL 2.3 H Estimated GFR/1.73 m2 (mL/min/1.73m2) 20.90 Glucose (74-106) mg/dL 251 H Calcium (8.5-10.1) mg/dL 9.0 Magnesium (1.8-2.4) mg/dL 1.3 L Total Bilirubin (0.2-1.0) mg/dL 0.3 AST (15-37) U/L 18 ALT (14-59) U/L 15 Alkaline Phosphatase (46-116) U/L 96 Troponin I (<or=60) ng/L < 50 Total Protein (6.4-8.2) g/dL 6.9 Albumin (3.4-5.0) g/dL 2.6 L TSH (0.36-3.74) uIU/mL 1.59 COVID-19 Source Range/Units 03/16/22 20:05 WBC (4.4-10.8) 10^3/uL RBC (3.93-5.22) 10^6/uL Hgb (11.2-15.7) g/dL Hct (36.0-46.0) % MCV (80-95) fL MCH (27.0-33.0) pg MCHC (32.0-36.0) % RDW (11.7-14.6) % Plt Count (130-400) 10^3/uL MPV (8.0-11.0) fL Immature Gran % Neutrophils % Lymphocytes % Monocytes % Eosinophils % Basophils % Nucleated RBC % (0.0-0.3) % Absolute Neutrophils (1.2-6.7) 10^3/uL Absolute Lymphocytes (1.2-3.4) 10^3/uL Absolute Monocytes (0.1-0.8) 10^3/uL Absolute Eosinophils (0.0-0.7) 10^3/uL Absolute Basophils (0.0-0.2) 10^3/uL D-Dimer (<500) ng/mlFEU Sodium (136-145) mmol/L Potassium (3.5-5.1) mmol/L Chloride (98-107) mmol/L Carbon Dioxide (21.0-32.0) mmol/L Anion Gap (3-11) mmol/L BUN (7-18) mg/dL Creatinine (0.55-1.02) mg/dL Estimated GFR/1.73 m2 (mL/min/1.73m2) Glucose (74-106) mg/dL Calcium (8.5-10.1) mg/dL Magnesium (1.8-2.4) mg/dL Total Bilirubin (0.2-1.0) mg/dL AST (15-37) U/L ALT (14-59) U/L Alkaline Phosphatase (46-116) U/L Troponin I (<or=60) ng/L Total Protein (6.4-8.2) g/dL Albumin (3.4-5.0) g/dL TSH (0.36-3.74) uIU/mL COVID-19 Source Nasal/Nares HPI General Mode of arrival: ambulatory. Date/Time Provider Initiated Documentation: 03/16/22 17:55. Limitations to Documentation: no limitations. Information obtained by: patient. HPI Narrative: 72yo female with multiple medical problems including history of chronic kidney disease, hypertension, diabetes, morbid obesity, hyperlipidemia, colostomy, hepatitis C, depression, presents today with chief complaint of generalized weakness. Patient notes she has been feeling generally unwell for the past 3 days and today was quite weak. She is felt dizzy today and did fall and struck the back of her head on a dog kennel. Patient does not think she lost consciousness. EMS arrived to find the patient dizzy, pale and diaphoretic. Symptoms were severe and now improved. She denies associated fever. No cough. Patient is concerned that her symptoms of the past 2 days may be related to a new medication that was recently prescribed. She is unsure as to what the medication is. Related Data Home Medications Medication Instructions Recorded Confirmed calcium carbonate 600 mg-vitamin 1 ea PO DAILY 05/10/13 03/16/22 D3 10 mcg (400 unit) tablet (Calcium 600 + D(3)) simvastatin 40 mg tablet (Zocor) 40 mg PO HS 05/10/13 03/16/22 insulin lispro 100 unit/mL 12 - 25 unit subcut BID 09/14/18 03/16/22 subcutaneous pen (Humalog KwikPen (U-100) Insulin) albuterol sulfate 90 mcg/actuation 2 puff inhalation Q4H 12/08/20 03/16/22 aerosol inhaler (Ventolin HFA) aspirin 81 mg tablet 81 mg PO DAILY 12/08/20 03/16/22 insulin glargine 100 unit/mL (3 56 unit subcut BID 12/08/20 03/16/22 mL) subcutaneous pen (Lantus Solostar U-100 Insulin) cholecalciferol (vitamin D3) 50 4,000 unit PO DAILY 11/05/21 03/16/22 mcg (2,000 unit) tablet duloxetine 60 mg capsule,delayed 60 mg PO BID 11/05/21 03/16/22 release glipizide 5 mg tablet 10 mg PO BID 11/05/21 03/16/22 omeprazole 40 mg capsule,delayed 40 mg PO DAILY 11/05/21 03/16/22 release pregabalin 50 mg capsule 50 mg PO TID 11/05/21 03/16/22 metoprolol succinate 25 mg 25 mg PO DAILY #30 tabs 11/09/21 03/16/22 tablet,extended release 24 hr lidocaine 5 % topical patch 2 patch topical Q24H #60 ea 12/02/21 03/16/22 magnesium oxide 400 mg PO BID #60 tabs 12/02/21 03/16/22 quetiapine 25 mg tablet 12.5 mg PO QPM #15 tabs 12/02/21 03/16/22 lisinopril 10 mg tablet 1 tab PO DAILY 03/16/22 03/16/22 Previous Rx's Medication Instructions Recorded metoprolol succinate 25 mg 25 mg PO DAILY #30 tabs 11/09/21 tablet,extended release 24 hr lidocaine 5 % topical patch 2 patch topical Q24H #60 ea 12/02/21 magnesium oxide 400 mg PO BID #60 tabs 12/02/21 quetiapine 25 mg tablet 12.5 mg PO QPM #15 tabs 12/02/21 Allergies Allergy/AdvReac Type Severity Reaction Status Date / Time epinephrine Allergy Severe chest Unverified 03/16/22 18:02 pain/heart attack Penicillins Allergy Intermediate rsh fever Unverified 03/16/22 18:02 banana [Banana] Allergy Unverified 03/16/22 18:02 NSAIDS (Non-Steroidal Allergy unkown Unverified 03/16/22 18:02 Anti-Inflamma Sulfa (Sulfonamide Allergy rash,fever Unverified 03/16/22 18:02 Antibiotics) Tetracyclines Allergy rash fever Unverified 03/16/22 18:02 sodium polystyrene sulfonate AdvReac Severe tachy/dyspn Unverified 03/16/22 18:02 [From Kayexalate] ea/rash Niacin Preparations AdvReac Intermediate flushing Unverified 03/16/22 18:02 General Stated Complaint: Dizzy/Sync TASHA: 3 Review of Systems All systems reviewed & are unremarkable except as noted in HPI and below Constitutional Constitutional: Denies fever(s) and Reports weakness Cardiovascular Cardiovascular: Denies chest pain Gastrointestinal Gastrointestinal: Denies nausea and Denies vomiting Neurologic Neurologic: Reports weakness PFSH All Active Problems Dizziness (Acute) Anemia (Chronic) SANDY (acute kidney injury) (Acute) Hypomagnesemia (Acute) D-dimer, elevated (Acute) Decreased activities of daily living (ADL) (Acute) Mass of left ovary (Acute) Chronic kidney disease (Chronic) Essential hypertension (Acute) Diabetes mellitus type 2 (Acute) On Metformin Back pain (Acute) Morbid obesity (Chronic) Hyperlipidemia (Chronic) 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 Leukocytosis. Intermittently febrile. Diverticulitis (Chronic) Recurrent. S/p high risk hemicolectomy in the setting of sepsis and hypotension 03/22/2013. Complication of a stomal leak resulting in an abdominal abscess. Readmitted to [facility] 05/03/13 emergently with sepsis syndrome and had an abdominal abscess drained. Completed rehab at [facility] with discharge most recently on after extensive dressing care of the abdominal wound with a wound VAC. Hepatitis C (Chronic) Recent negative viral count. Depression (Chronic) Vitamin D deficiency (Chronic) History of colostomy (Chronic) Medical History Anemia (05/03/13) Hemoglobin 8.2. Anemia Depression Diabetes mellitus Fall Gastroesophageal reflux disease GERD (gastroesophageal reflux disease) History of breast cancer History of hepatitis C History of incisional hernia History of renal failure Migraine Morbid obesity Osteopenia Palliative care patient Vitamin D deficiency Surgical History Colectomy H/O mastectomy Hernia Repair, Incisional x2 S/P cholecystectomy Family History Mother No problems noted. Father No problems noted. Social History Smoking/Tobacco Use Status: Former Tobacco Use Smoking risk assessment performed?: Yes Alcohol Intake: never Drug use: Never Substance use type: does not use Do you feel safe at home: Yes Do you feel safe in your relationship?: Yes Exam Const General: cooperative and no acute distress Nutritional Appearance: obese Orientation: alert and awake [facility] Head: normocephalic and atraumatic Mouth: moist mucous membranes Eyes Conjunctivae: normal conjunctivae Sclera: normal sclerae Neck Neck: trachea midline and supple Resp Auscultation: clear to auscultation bilaterally, no rales, no rhonchi and no wheezes Cardio Rate: regular rate and not tachycardic Rhythm: regular rhythm GI Palpation: soft, not firm, no guarding, no masses, not rigid and nontender Skin General skin exam: no rashes or lesions noted Neuro General: patient alert, patient awake, patient oriented x3 and tone normal Extrem General: calf tenderness bilaterally and edema Psych Appearance: grossly normal Mental Status: mental status grossly normal Speech and Movement: speech and movement normal Course Vital Signs Vital signs: Vital Signs Temperature 36.8 C 03/16/22 17:58 Pulse 57 L 03/16/22 17:58 Respiratory Rate 18 03/16/22 17:58 Blood Pressure 110/46 L 03/16/22 17:58 Pulse Oximetry 94 03/16/22 17:58 Temperature 36.8 C 03/16/22 17:58 Temperature Source Skin 03/16/22 17:58 Pulse 57 L 03/16/22 17:58 Respiratory Rate 19 03/16/22 18:11 Respiratory Effort Non-Labored 03/16/22 18:11 Respiratory Depth Normal 03/16/22 18:11 Respiratory Pattern Normal 03/16/22 18:11 Blood Pressure 96/58 L 03/16/22 19:17 Blood Pressure Position Sitting 03/16/22 17:58 Pulse Oximetry 94 03/16/22 17:58 Oxygen Delivery Method Room Air 03/16/22 17:58 Oxygen Flow Rate 0 03/16/22 17:58 Pain Level 8 03/16/22 17:58 Comment 03/16/22 19:17 Lab/Test Results Lab/Test Results: Laboratory Tests Range/Units 03/16/22 03/16/22 03/16/22 18:14 18:14 18:45 WBC (4.4-10.8) 10^3/uL 13.55 H RBC (3.93-5.22) 10^6/uL 3.80 L Hgb (11.2-15.7) g/dL 8.8 L Hct (36.0-46.0) % 31.4 L MCV (80-95) fL 83 MCH (27.0-33.0) pg 23.2 L MCHC (32.0-36.0) % 28.0 L RDW (11.7-14.6) % 17.1 H Plt Count (130-400) 10^3/uL 188 MPV (8.0-11.0) fL 9.8 Immature Gran % 0.7 Neutrophils % 79.4 Lymphocytes % 10.8 Monocytes % 5.6 Eosinophils % 3.1 Basophils % 0.4 Nucleated RBC % (0.0-0.3) % 0.0 Absolute Neutrophils (1.2-6.7) 10^3/uL 10.76 H Absolute Lymphocytes (1.2-3.4) 10^3/uL 1.46 Absolute Monocytes (0.1-0.8) 10^3/uL 0.76 Absolute Eosinophils (0.0-0.7) 10^3/uL 0.42 Absolute Basophils (0.0-0.2) 10^3/uL 0.05 D-Dimer (<500) ng/mlFEU 1413 H Sodium (136-145) mmol/L 138 Potassium (3.5-5.1) mmol/L 5.1 Chloride (98-107) mmol/L 101 Carbon Dioxide (21.0-32.0) mmol/L 28.7 Anion Gap (3-11) mmol/L 8.3 BUN (7-18) mg/dL 24 H Creatinine (0.55-1.02) mg/dL 2.3 H Estimated GFR/1.73 m2 (mL/min/1.73m2) 20.90 Glucose (74-106) mg/dL 251 H Calcium (8.5-10.1) mg/dL 9.0 Magnesium (1.8-2.4) mg/dL 1.3 L Total Bilirubin (0.2-1.0) mg/dL 0.3 AST (15-37) U/L 18 ALT (14-59) U/L 15 Alkaline Phosphatase (46-116) U/L 96 Troponin I (<or=60) ng/L < 50 Total Protein (6.4-8.2) g/dL 6.9 Albumin (3.4-5.0) g/dL 2.6 L TSH (0.36-3.74) uIU/mL 1.59
[2022-03-16 20:10] LABS: Source Nasal/Nares
[2022-03-16] MEDS: MAGNESIUM SULFATE 2 GM/50 ML BAG IVPB (20:46)
--- NOTE | 2022-03-16 20:58 | DI.VRAD_ITS ---
PROCEDURE INFORMATION: Exam: CT Head Without Contrast Exam date and time: 03/16/2022 8:23 PM Age: 72 years old Clinical indication: Injury or trauma; Blunt trauma (contusions or hematomas); Consciousness not specified; Injury date: 03/16/22; Injury details: Fall, head trauma TECHNIQUE: Imaging protocol: Computed tomography of the head without contrast. Radiation optimization: All CT scans at this facility use at least one of these dose optimization techniques: automated exposure control; mA and/or kV adjustment per patient size (includes targeted exams where dose is matched to clinical indication); or iterative reconstruction. 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 No evidence of acute transcortical infarction. No acute intracranial hemorrhage, edema, midline shift, or mass effect. Cerebral ventricles: No ventriculomegaly. Paranasal sinuses: Visualized sinuses are unremarkable. No fluid levels. Mastoid air cells: Visualized mastoid air cells are well aerated. Orbital cavities: Status post bilateral lens replacement surgery. Bones/joints: Unremarkable. No acute fracture. Soft tissues: Unremarkable. Vasculature: Mild vascular calcification of the intracranial internal carotid arteries. IMPRESSION: No acute intracranial abnormality is appreciated. Dictated and Authenticated by: Santos Alonso MD. Ordering:DANIELLE Winn MD
[2022-03-16] MEDS: Enoxaparin 120 MG/0.8 ML SYR 140 MG SC (21:29)
[2022-03-16 22:56] LABS: Troponin I < 50 ng/L (<or=60)
--- NOTE | 2022-03-16 23:14 | W.PM.HP.N ---
Date of service: 03/16/22 Time of Service: 23:14 Assessment and Plan Assessment and plan (1) SANDY (acute kidney injury): Start date: 03/16/22 Status: Acute Assessment and plan: This is a 72-year-old lady who is a full code who lives at home appear to be markedly debilitated but ambulate at home with the use of assistive devices and uses wheelchair. She had recent increased weakness and a fall at home prompting ED evaluation. She had no obvious injury but appeared to be dehydrated. She also appeared to be more anemic from her baseline with a drop in her hemoglobin but 2 g/dL from 10-8. She had no reported problems with her diabetes but is on a high dose of Lantus twice daily by review of her outpatient medication reconciliation. Urinalysis was unrevealing and did not appear to have any acute infectious process. She was admitted for IV hydration and consideration of CTA if her creatinine improved with PE not ruled out and patient having had 1 dose of therapeutic Lovenox which would be covering her for 24 hours. She is a full code. She will need rehabilitation before returning home but her baseline appears poor. She does have a caregiver at home. (2) Anemia: Status: Chronic Assessment and plan: Check for deficiencies and monitor. Transfuse if needed. Consider evaluation for blood loss. (3) Dizziness: Start date: 03/16/22 Status: Acute Assessment and plan: This appears to be associate with her acute dehydration and will be monitored as she is rehydrated. (4) Fall: Start date: 03/16/22 Status: Acute Assessment and plan: No injury by evaluation, physical therapy and Occupational Therapy to see patient in the morning. She may need rehabilitation prior to returning home with limited activity and ambulation at home by history. (5) D-dimer, elevated: Start date: 03/16/22 Status: Acute Assessment and plan: Follow-up clinically and consider venous Dopplers lower extremities and CT of the chest if creatinine improves and allows performance of this procedure. (6) Diabetes mellitus type 2: Status: Chronic Assessment and plan: Monitor with glucometer and short acting insulin coverage holding Lantus for now and other outpatient treatments. Watch for hypoglycemia. History of Present Illness History of Present Illness Chief Complaint: Weakness with dizziness Narrative: This is a 72-year-old female patient who has chronic morbid obesity cared for by a friend named Rodolfo who usually ambulates with a walker and has a wheelchair. She had not felt well over the last 3 days prior to presentation to the ED and was dizzy having had a fall prior to admission. Imaging in the ED revealed no acute injury. She was tachycardic and slightly hypotensive with an elevation in her creatinine from her baseline not allowing CTA with positive D-dimer and concern for PE but ED physician gave 1 dose of therapeutic 24-hour Lovenox. CTA could be reconsidered in morning. She was thought to be mostly SANDY or dehydrated on top of history of CKD also having anemia which appears to be worse but could be associated with chronic disease. She appears generally unhealthy with a long list of medical problems including diabetes but denies any recent hypoglycemia or polyuria/polydipsia with minimal conversation. At the time I interviewed the patient she was less awake but nurse reported that she was able to give accurate history when first coming to the [facility] for care. She received IV hydration which did help her tachycardia. Her medications were reviewed and some of her antihypertensives were also modified or held. She was admitted for IV hydration and cardiac monitoring. She is a full code. Review of Systems Narrative: 13 point review of systems otherwise unrevealing or stable. 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 Leukocytosis. Intermittently febrile. Diverticulitis (Chronic) Recurrent. S/p high risk hemicolectomy in the setting of sepsis and hypotension 03/22/2013. Complication of a stomal leak resulting in an abdominal abscess. Readmitted to [facility] 05/03/13 emergently with sepsis syndrome and had an abdominal abscess drained. Completed rehab at [facility] with discharge most recently on after extensive dressing care of the abdominal wound with a wound VAC. Hepatitis C (Chronic) Recent negative viral count. Depression (Chronic) Vitamin D deficiency (Chronic) History of colostomy (Chronic) Medical History Anemia (05/03/13) Hemoglobin 8.2. Anemia Depression Diabetes mellitus Fall Gastroesophageal reflux disease GERD (gastroesophageal reflux disease) History of breast cancer History of hepatitis C History of incisional hernia History of renal failure Migraine Morbid obesity Osteopenia Palliative care patient Vitamin D deficiency Surgical History Colectomy H/O mastectomy Hernia Repair, Incisional x2 S/P cholecystectomy Family History Mother No problems noted. Father No problems noted. Social History Smoking/Tobacco Use Status: Former Tobacco Use Smoking risk assessment performed?: Yes Alcohol Intake: never Drug use: Never Substance use type: does not use Do you feel safe at home: Yes Do you feel safe in your relationship?: Yes Meds Allergies and Home Medications Allergies Allergy/AdvReac Type Severity Reaction Status Date / Time epinephrine Allergy Severe chest Unverified 03/16/22 18:02 pain/heart attack Penicillins Allergy Intermediate rsh fever Unverified 03/16/22 18:02 banana [Banana] Allergy Unverified 03/16/22 18:02 NSAIDS (Non-Steroidal Allergy unkown Unverified 03/16/22 18:02 Anti-Inflamma Sulfa (Sulfonamide Allergy rash,fever Unverified 03/16/22 18:02 Antibiotics) Tetracyclines Allergy rash fever Unverified 03/16/22 18:02 sodium polystyrene sulfonate AdvReac Severe tachy/dyspn Unverified 03/16/22 18:02 [From Kayexalate] ea/rash Niacin Preparations AdvReac Intermediate flushing Unverified 03/16/22 18:02 Home Medications Medication Instructions Recorded Confirmed Type calcium carbonate 600 mg-vitamin 1 ea PO DAILY 05/10/13 03/16/22 History D3 10 mcg (400 unit) tablet (Calcium 600 + D(3)) simvastatin 40 mg tablet (Zocor) 40 mg PO HS 05/10/13 03/16/22 History insulin lispro 100 unit/mL 12 - 25 unit subcut BID 09/14/18 03/16/22 History subcutaneous pen (Humalog KwikPen (U-100) Insulin) albuterol sulfate 90 mcg/actuation 2 puff inhalation Q4H 12/08/20 03/16/22 History aerosol inhaler (Ventolin HFA) aspirin 81 mg tablet 81 mg PO DAILY 12/08/20 03/16/22 History insulin glargine 100 unit/mL (3 56 unit subcut BID 12/08/20 03/16/22 History mL) subcutaneous pen (Lantus Solostar U-100 Insulin) cholecalciferol (vitamin D3) 50 4,000 unit PO DAILY 11/05/21 03/16/22 History mcg (2,000 unit) tablet duloxetine 60 mg capsule,delayed 60 mg PO BID 11/05/21 03/16/22 History release glipizide 5 mg tablet 10 mg PO BID 11/05/21 03/16/22 History omeprazole 40 mg capsule,delayed 40 mg PO DAILY 11/05/21 03/16/22 History release pregabalin 50 mg capsule 50 mg PO TID 11/05/21 03/16/22 History metoprolol succinate 25 mg 25 mg PO DAILY #30 tabs 11/09/21 03/16/22 Rx tablet,extended release 24 hr lidocaine 5 % topical patch 2 patch topical Q24H #60 ea 12/02/21 03/16/22 Rx magnesium oxide 400 mg PO BID #60 tabs 12/02/21 03/16/22 Rx quetiapine 25 mg tablet 12.5 mg PO QPM #15 tabs 12/02/21 03/16/22 Rx lisinopril 10 mg tablet 1 tab PO DAILY 03/16/22 03/16/22 History Exam Narrative Exam Narrative: General: Patient is morbidly obese, confused at the time of exam not oriented to person place or time but attempting to answer questions though not correctly. She appears in no acute distress and slightly delirious. HEENT: Normocephalic, face with coarsened features, eyes with pupils equal reactive light symmetrically, extraocular movement intact and sclera anicteric. Oropharynx with dry mucosa. Neck: Supple without JVD. Lungs: Clear to auscultation with patient examined supine and not able to sit up. Back: Exam limited because of patient's delirium and not able to sit up. Breast: Bilateral mastectomy with clean scars and no palpable masses. Heart: Regular rate and rhythm with no appreciable murmur or gallop. Abdomen: Morbid obesity with large pannus, soft without guarding or tenderness, bowel sounds positive in all quadrants. No palpable hepatosplenomegaly but exam limited by obesity. Genitalia/rectal: Exam deferred. Extremities: Morbidly obese over upper and lower extremities, no pitting edema, no cyanosis or clubbing. Fair capillary refill. Skin: Pale, warm and dry. Neuro: Cranial nerves II through XII appear to be grossly intact. No focalizing motor deficits. Patient is moving slowly but moves all extremities. Psych: Patient has a flattened affect and appears confused with some inappropriate answers of questions but no inappropriate thought processes manifested. She has some delirium. Remote and recent memory testing not possible. Results Imaging Imaging Studies: Exam: CT Head Without Contrast Exam date and time: 03/16/2022 8:23 PM Age: 72 years old Clinical indication: Injury or trauma; Blunt trauma (contusions or hematomas); Consciousness not specified; Injury date: 03/16/22; Injury details: Fall, head trauma TECHNIQUE: Imaging protocol: Computed tomography of the head without contrast. Radiation optimization: All CT scans at this facility use at least one of these dose optimization techniques: automated exposure control; mA and/or kV adjustment per patient size (includes targeted exams where dose is matched to clinical indication); or iterative reconstruction. 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 No evidence of acute transcortical infarction. No acute intracranial hemorrhage, edema, midline shift, or mass effect. Cerebral ventricles: No ventriculomegaly. Paranasal sinuses: Visualized sinuses are unremarkable. No fluid levels. Mastoid air cells: Visualized mastoid air cells are well aerated. Orbital cavities: Status post bilateral lens replacement surgery. Bones/joints: Unremarkable. No acute fracture. Soft tissues: Unremarkable. Vasculature: Mild vascular calcification of the intracranial internal carotid arteries. IMPRESSION: No acute intracranial abnormality is appreciated. Labs Result diagrams: 03/16/22 18:14 03/16/22 18:14 Labs: Laboratory Results - last 24 hr 03/16/22 03/16/22 03/16/22 18:14 18:14 18:45 WBC 13.55 H RBC 3.80 L Hgb 8.8 L Hct 31.4 L MCV 83 MCH 23.2 L MCHC 28.0 L RDW 17.1 H Plt Count 188 MPV 9.8 Immature Gran % 0.7 Neutrophils % 79.4 Lymphocytes % 10.8 Monocytes % 5.6 Eosinophils % 3.1 Basophils % 0.4 Nucleated RBC % 0.0 Absolute Neutrophils 10.76 H Absolute Lymphocytes 1.46 Absolute Monocytes 0.76 Absolute Eosinophils 0.42 Absolute Basophils 0.05 D-Dimer 1413 H Sodium 138 Potassium 5.1 Chloride 101 Carbon Dioxide 28.7 Anion Gap 8.3 BUN 24 H Creatinine 2.3 H Estimated GFR/1.73 m2 20.90 Glucose 251 H Calcium 9.0 Magnesium 1.3 L Total Bilirubin 0.3 AST 18 ALT 15 Alkaline Phosphatase 96 Troponin I < 50 Total Protein 6.9 Albumin 2.6 L TSH 1.59 COVID-19 Source 03/16/22 03/16/22 20:05 20:15 WBC RBC Hgb Hct MCV MCH MCHC RDW Plt Count MPV Immature Gran % Neutrophils % Lymphocytes % Monocytes % Eosinophils % Basophils % Nucleated RBC % Absolute Neutrophils Absolute Lymphocytes Absolute Monocytes Absolute Eosinophils Absolute Basophils D-Dimer Sodium Potassium Chloride Carbon Dioxide Anion Gap BUN Creatinine Estimated GFR/1.73 m2 Glucose Calcium Magnesium Total Bilirubin AST ALT Alkaline Phosphatase Troponin I < 50 Total Protein Albumin TSH COVID-19 Source Nasal/Nares Last Vital Signs Temp 36.9 C 03/16/22 22:50 Pulse 78 03/16/22 22:50 Resp 20 03/16/22 22:50 BP 118/66 03/16/22 22:50 Pulse Ox 96 03/16/22 22:50
[2022-03-16 23:56] LABS: Bilirubin Small (Negative); Blood Trace-intact (Negative); Clarity Cloudy (Clear); Glucose Negative (Negative); Ketones Negative (Negative); Leukocyte Esterase Moderate (Negative); Nitrite Negative (Negative); Specific Gravity >= 1.030 (1.005-1.025); Urobilinogen 0.2 EU/dL (Up TO 0.2); pH 5.5 (5-8)
[2022-03-17] VITALS (12 sets, daily range): BP systolic 96–141; BP diastolic 55–75; PULSE 77–98; RESP 12–20; TEMP 36.1–36.8; O2SAT 93–99
[2022-03-17] MEDS: Lactated Ringers 1,000 ML 125 ML IV ×3 (00:01→16:20)
[2022-03-17 00:05] LABS: WBC >50 HPF (0-5)
[2022-03-17 00:06] LABS: Bacteria Moderate HPF (Negative); C & S Indicated? Yes; Crystals Negative HPF (Negative); Epithelial Cells Moderate HPF (Negative); Mucus Negative (Negative); RBC 0-2 HPF (0-2)
[2022-03-17 00:20] LABS: COVID-19 PCR Negative (Negative)
[2022-03-17 07:31] LABS: Abs Immature Grans 0.08 10^3/uL (0.0-0.06); Absolute Basophil Count 0.05 10^3/uL (0.0-0.2); Absolute Eosinophil Count 0.51 10^3/uL (0.0-0.7); Absolute Lymphocyte Count 2.48 10^3/uL (1.2-3.4); Absolute Neutrophil Count 8.47 10^3/uL (1.2-6.7); Basophils % 0.4; Eosinophils % 4.1; HCT 29.7 % (36.0-46.0); Immature Grans % 0.6; Lymphocytes % 20.1; MCH 22.6 pg (27.0-33.0); MCHC 26.9 % (32.0-36.0); MCV 84 fL (80-95); MPV 10.1 fL (8.0-11.0); Monocytes % 6.2; Neutrophils % 68.6; RBC 3.54 10^6/uL (3.93-5.22); RDW 17.2 % (11.7-14.6); RDW-SD 52.2 fL; WBC 12.35 10^3/uL (4.4-10.8)
[2022-03-17 07:32] LABS: Absolute Monocyte Count 0.77 10^3/uL (0.1-0.8)
[2022-03-17 07:49] LABS: ALT 14 U/L (14-59); AST 13 U/L (15-37); Albumin 2.4 g/dL (3.4-5.0); Alkaline Phosphatase 92 U/L (46-116); Anion Gap 5.9 mmol/L (3-11); BUN 25 mg/dL (7-18); Bilirubin, Total 0.3 mg/dL (0.2-1.0); CO2 30.1 mmol/L (21.0-32.0); CREATININE 2.4 mg/dL (0.55-1.02); Calcium 8.6 mg/dL (8.5-10.1); Chloride 101 mmol/L (98-107); Glucose 102 mg/dL (74-106); Magnesium 1.1 mg/dL (1.8-2.4); Potassium 4.1 mmol/L (3.5-5.1); Sodium 137 mmol/L (136-145); Total Protein 6.6 g/dL (6.4-8.2)
[2022-03-17 07:54] LABS: Iron 31 ug/dL (50-170); Total Iron Binding Capacity 341 ug/dL (250-450); Transferrin Sat 9 % (15-50)
[2022-03-17 07:58] LABS: Platelet Count 184 10^3/uL (130-400)
[2022-03-17 07:59] LABS: Diff Comment Diff Reviewed; Hypochromasia 2+; Polychromasia Present
[2022-03-17 08:22] LABS: Ferritin 25 ng/mL (8-252); Folate 2.9 ng/mL (8.6-20.0); Vitamin B12 340 pg/mL (193-986)
[2022-03-17] MEDS: Calcium 600mg/Vit D 200U TAB 1 TAB PO (08:26)
[2022-03-17] MEDS: DULoxetine 30 MG CAP 60 MG PO ×2 (08:27→20:48)
[2022-03-17] MEDS: Magnesium Oxide 400 MG TAB PO ×2 (08:27→20:48)
[2022-03-17] MEDS: Pregabalin 50 MG CAP PO ×3 (08:27→20:49)
[2022-03-17] MEDS: Cholecalciferol (Vitamin D3) 1,000 UNIT TAB 4000 UNITS PO (08:27)
[2022-03-17] MEDS: Metoprolol 12.5 MG TAB PO ×2 (08:28→20:48)
[2022-03-17] MEDS: Omeprazole 20 MG CAPCR 40 MG PO (08:28)
[2022-03-17] MEDS: Aspirin 81 MG CHEW PO (08:28)
[2022-03-17] MEDS: Albuterol HFA 8 GM 60 PUFF INH IH ×4 (08:47→21:41)
--- NOTE | 2022-03-17 09:25 | PT.INIE ---
Date of service: 03/17/22 Time of Service: 09:25 PT Notes Visit Reasons: SANDY, Dizziness with Falls, Anemia Physical Therapy Inpatient Initial Evaluation Date: 03/17/2022 Referring Doctor: Fabián De Guzman MD PT Orders: PT CONSULT: Fall Safety Assessment Precautions: Fall. Standard. Activity as tolerated. Patient Profile/Admitting Diagnosis: Raven is a 71-year-old female who presented to the ED on 11/23/2021 due to exacerbation of low back pain and generalized weakness.? Patient is diagnosed with exacerbation of low back pain, hyperkalemia, and hypomagnesemia.? PMHX: All Active Problems? 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 Leukocytosis.? Intermittently febrile. Diverticulitis (Chronic) Recurrent.? S/p high risk hemicolectomy in the setting of sepsis and hypotension 03/22/2013. Complication of a stomal leak resulting in an abdominal abscess.? Readmitted to [facility] 05/03/13 emergently with sepsis syndrome and had an abdominal abscess drained. ? Completed rehab at [facility] with discharge most recently on after extensive dressing care of the abdominal wound with a wound VAC. Hepatitis C (Chronic) Recent negative viral count.Depression (Chronic) Vitamin D deficiency (Chronic) History of colostomy (Chronic) Medical History? Anemia (05/03/13) Hemoglobin 8.2.Anemia Depression Diabetes mellitus Fall Gastroesophageal reflux disease GERD (gastroesophageal reflux disease) History of breast cancer History of hepatitis C History of incisional hernia History of renal failure Migraine Morbid obesity Osteopenia Palliative care patient Vitamin D deficiency Surgical History? Colectomy H/O mastectomy Hernia Repair, Incisional x2S/P cholecystectomy Social History/Home Situation: Lives with significant other in a mobile home with a ramp to enter and alternate 3 steps to enter.? Requires assistance from significant other for all transfers using walker.? Short distance ambulation only prior to admission. Equipment Owned/DME: Front-wheeled walker, wheelchair Subjective: Agreeable to PT consult. Complains of fatigue and weakness in B LE. R ankle and foot painful to touch Objective: General Observation:? Supine in bed.? Colostomy bag in place.? High BMI.? Telemetry monitoring in place. Mental Status: Alert and oriented as to person, place, time, and purpose. Able to pay attention, focus, and respond appropriately. Pain: Minimal pain in R foot to touch Vital Signs: Within normal limits as closely monitored by nursing staff ROM: Right Upper Extremity: ? Shoulder Flexion lacks 50% of AROM. Shoulder abduction lacks 50% of AROM. Elbow flexion WFL. Wrist flexion WFL. Functional opening and closing of hand WFL. Left Upper Extremity:? Shoulder Flexion lacks 50% of AROM. Shoulder abduction lacks 50% of AROM. Elbow flexion WFL. Wrist flexion WFL. Functional opening and closing of hand WFL. Right Lower Extremity: Hip flexion unable beyond 90 while seated at edge of bed Hip abduction 10 degrees. Knee flexion 0 to 90 degrees. Ankle dorsiflexion to neutral only. Ankle plantarflexion WFL. Left Lower Extremity: Hip flexion unable beyond 90 while seated at edge of bed Hip abduction 10 degrees. Knee flexion 0 to 90 degrees. Ankle dorsiflexion to neutral only. Ankle plantarflexion WFL. Strength: Right Upper Extremity: Shoulder flexors 3-/5. Shoulder abductors 3-/5. Elbow flexors 3-/5. Elbow extensors 3-/5. Opto Mechanical Engineer strong. Left Upper Extremity: Shoulder flexors 3-/5. Shoulder abductors 3-/5. Elbow flexors 3-/5. Elbow extensors 3-/5. Opto Mechanical Engineer strong. Right Lower Extremity: Hip flexors 3-/5. Hip abductors 3-/5. Knee flexors 3-/5. Knee extensor 3-/5. Ankle dorsiflexors 3-/5. Ankle plantarflexors 4-/5. Left Lower Extremity: Hip flexors 3-/5. Hip abductors 3-/5. Knee flexors 3-/5. Knee extensor 3-/5. Ankle dorsiflexors 3-/5. Ankle plantarflexors 4-/5. Bed Mobility/Transfers: Rolling with minimal assist with cues for safe/correct technique Sit to stand with minimal assist of 2, bed height increased for safety Stand to sit with contact guard assist of 2 with FWW Bed to reclining chair with minimal assist of 2 with minimal cues for safe/correct technique Gait: Tolerated 4 small steps + 5-6 steps using bariatric front-wheeled walker with full weight bearing on B LE requiring minimal assist of 2.? Patient complains of fatigue and weakness in B LE as well as mild shortness of breath.? Step width wide. No loss of balance seen.? Decreased alexis.? Balance: Static Sitting: Good Dynamic Sitting: Fair Static Standing: Fair Dynamic Standing: Poor Special Tests: Mobility Limitations Standardized Measure [facility] AM-PAC 6 clicks Basic Mobility Inpatient Short Form: Raw Score: 12 CMS Score: 69% deficit? ? ? Informed Consent/Education:? Patient was instructed in purpose of PT consult and plan of care. Agreeable to proceed with established PT POC to achieve personal goals. ASSESSMENT: Patient demonstrates ambulatory dysfunction, limited functional mobility, decrease fall risk, and ADL dependence resulting from SANDY, Anemia, dizziness, recent fall, high BMI, and comorbid conditions as above whic all increase risk for repeated falls.? Limited ability of significant other to help due to own mobility issues. Patient presents with clinical signs and symptoms consistent with current/admitting diagnoses that have resulted to mobility limitations, gait instability, generalized weakness, and overall ADL decline as demonstrated by the following impairment level findings: 1.? Decreased strength to B LE major muscle groups 2.? Impaired sitting/standing balance 3.? Impaired activity tolerance 4.? Limitation of joint range of motion in back and B UE/LE 5.? Shortness of breath 6.? Low back pain Impairments are contributing to the following functional limitations: 1.? Decline in bed mobility skills 2.? Decline in transfer skills 3.? Difficulty with ambulation without assistive device and physical assistance 4.? Increased completion time for mobility ADL performance 5.? Increased risk for falls 6.? Difficulty with managing steps alone safely Patient is assessed as a 64650 high complexity based on the following: History: 72-year-old femalewith past medical history as indicated above Examination: Demonstrable impairment in strength, balance, and mobility level with underlying impairments and functional limitations as exhibited above as well as deficit score of 69% utilizing the [facility] Mobility Inpatient Short Form Presentation: Evolving Decision Makin high complexity Goals: Goals X1 week 1. Supine-Sit independent 2. Sit-Supine independent 3. Sit-Stand standby assist 4. Stand-Sit with standby assist with bariatric FWW 5. Bed-Chair standby assist with bariatric FWW 6. Chair-Bed standby assist with bariatric FWW 7. Standby assist with bariatric FWW for gait on level surface with use of FWW for at least 30 feet without report of pain nor dyspnea 8. Good static and dynamic standing balance/tolerance Plan of Care/Treatment Plan: 1-2x/day, 7 days/week x 1 week. Plan of care has been reviewed with the SIGNALS INTELLIGENCE ANALYST providing the service under Physical Therapy direction. Initiate Physical Therapy intervention for pain management as needed, strengthening, bed mobility, transfers, gait, stairs, balance training, and use of assistive device. DISCHARGE RECOMMENDATIONS: [] ? Home with no services [] [] ? Home with services [specify] [] ? Home with outpatient PT [] [X] ? SNF for continued rehabilitation.? Patient will benefit from [facility] facility placement for continued skilled physical therapy services in order to progress mobility level, strength, and balance in preparation for a safe discharge to home. [] ? [facility] Care [] [] ? SNF versus LTC based on ability to participate and progress [] TREATMENT CODE/TIME: 57408? x 20 minutes, 50337 x 23 minutes beginning at 9:25 AM. Thank you for the opportunity to participate in the care of this patient. Selene Collado PT, DPT, CLT [facility] [place], [place]
[2022-03-17 10:24] LABS: Creatine Kinase 19 U/L (26-192)
[2022-03-17] MEDS: MAGNESIUM SULFATE 4 GM/100 ML BAG IVPB (10:35)
--- NOTE | 2022-03-17 11:31 | W.PM.PROGNOT ---
Date of Service Date of service: 03/17/22 Time of Service: 11:31 Assessment and Plan Assessment and plan (1) SANDY (acute kidney injury): Start date: 03/16/22 Status: Acute Assessment and plan: continue IV fluids avoid nephrotoxic drugs, renal dosing monitor I&O closely, place queen follow labs closely renal ultrasound (2) Anemia: Status: Chronic Assessment and plan: iron deficient, replete check stool for OB (3) Dizziness: Start date: 03/16/22 Status: Acute Assessment and plan: This appears to be associate with her acute dehydration and will be monitored as she is rehydrated. (4) Fall: Start date: 03/16/22 Status: Acute Assessment and plan: No injury by evaluation, physical therapy and Occupational Therapy consultation refuses inpatient rehabilitation (5) D-dimer, elevated: Start date: 03/16/22 Status: Acute Assessment and plan: of unknown significance and expected with multiple recent falls. Follow-up clinically and consider venous Dopplers lower extremities and CT of the chest if creatinine improves. (6) Diabetes mellitus type 2: Status: Chronic Assessment and plan: Monitor with glucometer and short acting insulin coverage holding Lantus for now and other outpatient treatments. Watch for hypoglycemia. diabetic diet (7) DVT prophylaxis: Status: Acute Assessment and plan: received full dose lovenox in the ED (8) Discharge planning issues: Status: Acute Assessment and plan: refuses inpatient rehabilitation will likely discharge to home with home health services. discussed with DR De Guzman. Subjective Subjective Patient reports: no new complaints, feels better, tolerating liquids well, tolerating a regular diet and afebrile; denies shortness of breath Exam Const General: cooperative, no acute distress and ill appearing chronically Nutritional Appearance: obese morbidly obese Orientation: alert, awake and oriented x3 HENMT Head: normal to inspection, normocephalic and atraumatic Mouth: oral mucosae normal Eyes General: appearance normal, both eyes and all related structures Sclera: sclerae normal Resp Effort & Inspection: normal respiratory effort Cardio Rate: regular rate Rhythm: regular rhythm GI Inspection: large pannus and obesity Palpation: soft and nontender Extrem General: no pedal edema Objective Last Vital Signs Temp 36.7 C 03/17/22 07:30 Pulse 98 H 03/17/22 07:30 Resp 14 03/17/22 07:30 BP 96/61 L 03/17/22 09:04 Pulse Ox 96 03/17/22 07:30 Laboratory Results - last 24 hr 03/16/22 03/16/22 03/16/22 18:14 18:14 18:45 WBC 13.55 H RBC 3.80 L Hgb 8.8 L Hct 31.4 L MCV 83 MCH 23.2 L MCHC 28.0 L RDW 17.1 H Plt Count 188 MPV 9.8 Immature Gran % 0.7 Neutrophils % 79.4 Lymphocytes % 10.8 Monocytes % 5.6 Eosinophils % 3.1 Basophils % 0.4 Nucleated RBC % 0.0 Absolute Neutrophils 10.76 H Absolute Lymphocytes 1.46 Absolute Monocytes 0.76 Absolute Eosinophils 0.42 Absolute Basophils 0.05 RBC Morphology Polychromasia Hypochromasia D-Dimer 1413 H Sodium 138 Potassium 5.1 Chloride 101 Carbon Dioxide 28.7 Anion Gap 8.3 BUN 24 H Creatinine 2.3 H Estimated GFR/1.73 m2 20.90 Glucose 251 H Calcium 9.0 Magnesium 1.3 L Iron TIBC Transferrin % Sat Ferritin Total Bilirubin 0.3 AST 18 ALT 15 Alkaline Phosphatase 96 Creatine Kinase Troponin I < 50 Total Protein 6.9 Albumin 2.6 L Vitamin B12 Folate TSH 1.59 Urine Color Urine Clarity Urine pH Ur Specific Clifton Urine Protein Urine Ketones Urine Blood Urine Nitrite Urine Bilirubin Urine Urobilinogen Ur Leukocyte Esterase Urine RBC Urine WBC Ur Epithelial Cells Urine Crystals Urine Bacteria Urine Mucus Ur Culture Indicated? Urine Glucose COVID-19 Source SARS-CoV-2 (PCR) 03/16/22 03/16/22 03/16/22 20:05 20:15 23:50 WBC RBC Hgb Hct MCV MCH MCHC RDW Plt Count MPV Immature Gran % Neutrophils % Lymphocytes % Monocytes % Eosinophils % Basophils % Nucleated RBC % Absolute Neutrophils Absolute Lymphocytes Absolute Monocytes Absolute Eosinophils Absolute Basophils RBC Morphology Polychromasia Hypochromasia D-Dimer Sodium Potassium Chloride Carbon Dioxide Anion Gap BUN Creatinine Estimated GFR/1.73 m2 Glucose Calcium Magnesium Iron TIBC Transferrin % Sat Ferritin Total Bilirubin AST ALT Alkaline Phosphatase Creatine Kinase Troponin I < 50 Total Protein Albumin Vitamin B12 Folate TSH Urine Color Yellow Urine Clarity Cloudy Urine pH 5.5 Ur Specific Clifton >= 1.030 H Urine Protein 100 H Urine Ketones Negative Urine Blood Trace-intact H Urine Nitrite Negative Urine Bilirubin Small H Urine Urobilinogen 0.2 Ur Leukocyte Esterase Moderate H Urine RBC 0-2 Urine WBC >50 H Ur Epithelial Cells Moderate Urine Crystals Negative Urine Bacteria Moderate Urine Mucus Negative Ur Culture Indicated? Yes Urine Glucose Negative COVID-19 Source Nasal/Nares SARS-CoV-2 (PCR) Negative 03/17/22 03/17/22 03/17/22 06:21 06:21 06:21 WBC RBC Hgb Hct MCV MCH MCHC RDW Plt Count MPV Immature Gran % Neutrophils % Lymphocytes % Monocytes % Eosinophils % Basophils % Nucleated RBC % Absolute Neutrophils Absolute Lymphocytes Absolute Monocytes Absolute Eosinophils Absolute Basophils RBC Morphology Polychromasia Hypochromasia D-Dimer Sodium 137 Potassium 4.1 D Chloride 101 Carbon Dioxide 30.1 Anion Gap 5.9 BUN 25 H Creatinine 2.4 H Estimated GFR/1.73 m2 19.90 Glucose 102 Calcium 8.6 Magnesium 1.1 L Iron 31 L TIBC 341 Transferrin % Sat 9 L Ferritin 25 Total Bilirubin 0.3 AST 13 L ALT 14 Alkaline Phosphatase 92 Creatine Kinase Troponin I Total Protein 6.6 Albumin 2.4 L Vitamin B12 340 Folate 2.9 L TSH Urine Color Urine Clarity Urine pH Ur Specific Clif[place] Urine Protein Urine Ketones Urine Blood Urine Nitrite Urine Bilirubin Urine Urobilinogen Ur Leukocyte Esterase Urine RBC Urine WBC Ur Epithelial Cells Urine Crystals Urine Bacteria Urine Mucus Ur Culture Indicated? Urine Glucose COVID-19 Source SARS-CoV-2 (PCR) 03/17/22 03/17/22 06:21 06:21 WBC 12.35 H RBC 3.54 L Hgb 8.0 L Hct 29.7 L MCV 84 MCH 22.6 L MCHC 26.9 L RDW 17.2 H Plt Count 184 MPV 10.1 Immature Gran % 0.6 Neutrophils % 68.6 Lymphocytes % 20.1 Monocytes % 6.2 Eosinophils % 4.1 Basophils % 0.4 Nucleated RBC % 0.0 Absolute Neutrophils 8.47 H Absolute Lymphocytes 2.48 Absolute Monocytes 0.77 Absolute Eosinophils 0.51 Absolute Basophils 0.05 RBC Morphology See Below Polychromasia Present Hypochromasia 2+ D-Dimer Sodium Potassium Chloride Carbon Dioxide Anion Gap BUN Creatinine Estimated GFR/1.73 m2 Glucose Calcium Magnesium Iron TIBC Transferrin % Sat Ferritin Total Bilirubin AST ALT Alkaline Phosphatase Creatine Kinase 19 L Troponin I Total Protein Albumin Vitamin B12 Folate TSH Urine Color Urine Clarity Urine pH Ur Specific Cl[place] Urine Protein Urine Ketones Urine Blood Urine Nitrite Urine Bilirubin Urine Urobilinogen Ur Leukocyte Esterase Urine RBC Urine WBC Ur Epithelial Cells Urine Crystals Urine Bacteria Urine Mucus Ur Culture Indicated? Urine Glucose COVID-19 Source SARS-CoV-2 (PCR)
[2022-03-17 11:35] LABS: Hemoglobin A1C 6.9 % (<5.7)
[2022-03-17] MEDS: Insulin Aspart 300 UNITS/3 ML PEN SC ×2 (11:46→17:05)
--- NOTE | 2022-03-17 12:05 | INITIAL_ITS ---
- If Service Date Differs Date of service: 03/17/22 Time of Service: 12:05 Care Management Initial Assess REASON FOR HOSPITALIZATION:: SANDY, dizziness with falls, anemia PAST MEDICAL HISTORY/PAST SURGICAL HISTORY:: All Active Problems. Fall (Acute). Dizziness (Acute). Anemia (Chronic). SANDY (acute kidney injury) (Acute). Hypomagnesemia (Acute). D-dimer, elevated (Acute). Decreased activities of daily living (ADL) (Acute). Mass of left ovary (Acute). Chronic kidney disease (Chronic). Essential hypertension (Acute). Diabetes mellitus type 2 (Chronic). On Metformin. Back pain (Acute). Morbid obesity (Chronic). Hyperlipidemia (Chronic). 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 Worsening ulceration of a peristomal fistula that appears to be expanding in size. Leukocytosis. Intermittently febrile. Diverticulitis (Chronic). Recurrent. S/p high risk hemicolectomy in the setting of sepsis and hypotension 03/22/2013. Complication of a stomal leak resulting in an abdominal abscess. Readmitted to [facility] 05/03/13 emergently with sepsis syndrome and had an abdominal abscess drained. Completed rehab at [facility] with discharge most recently on after extensive dressing care of the abdominal wound with a wound VAC. Hepatitis C (Chronic). Recent negative viral count. Depression (Chronic). Vitamin D deficiency (Chronic). History of colostomy (Chronic). Medical History. Anemia (05/03/13). Hemoglobin 8.2. Anemia. Depression. Diabetes mellitus. Fall. Gastroesophageal reflux disease. GERD (gastroesophageal reflux disease). History of breast cancer. History of hepatitis C. History of incisional hernia. History of renal failure. Migraine. Morbid obesity. Osteopenia. Palliative care patient. Vitamin D deficiency. Surgical History. Colectomy. H/O mastectomy. Hernia Repair, Incisional. x2. S/P cholecystectomy PREVIOUS FUNCTIONAL STATUS/SOCIAL/FAMILY SUPPORTS:: Raven lives in [facility] with her boyfriend Rodolfo. She has three daughters who live locally. Raven uses an electric wheelchair for mobility and also has a FWW but walks very little, if at all. She has support from family and friends. CURRENT FUNCTIONAL STATUS:: Raven was lying in bed when CM met with her. Her daughter, and two son in laws were visiting. The provider was also in the room, discussing her plan of care with the family. Raven has stated that she does not want to go to rehab, although her family would like her to. Per provider, her kidney function did not improve overnight, but she is receiving IV fluids, and will recheck her labs in the morning. CM will continue to follow. ADVANCE DIRECTIVES:: On file, Ning Raicarmelo listed as agent. Marcia Granados listed as alternate agent. Has patient been provided with info about the portal/API?: Yes Did the patient sign up for the portal?: No CODE STATUS:: Full Code INSURANCE COVERAGE / FINANCIAL ISSUES:: [facility] MCR replacement/ [facility] CURRENT HOME/COMMUNITY SERVICES/EQUIPMENT:: Electric w/c, FWW PRIMARY CARE PHYSICIAN:: Mary Ann Luo POTENTIAL DISCHARGE NEEDS:: Follow up with PCP and plan of care PATIENT/FAMILY EDUCATION NEEDS:: Review discharge instructions regarding activity levels and medications, discussion of self care needs including ask me three. ANTICIPATED BARRIERS TO DISCHARGE:: None TRANSPORTATION:: via private vehicle PLAN:: Raven will likely return home when medically cleared. She will transport via private vehicle by family. She will follow up with her PCP and discharge plan of care. CM will continue to follow.
--- NOTE | 2022-03-17 13:35 | PTTR_ITS ---
Date of service: 03/17/22 Time of Service: 13:35 PT Notes Visit Reasons: SANDY, Dizziness with Falls, Anemia Physical Therapy Inpatient Treatment Note Date: 03/17/2022 Precautions: Fall. Standard. Activity as tolerated. Subjective: Agreeable to PT session. Objective: General Observation:? Seated on chair.? Colostomy bag in place.? High BMI.? Telemetry monitoring in place. Mental Status: Alert and oriented as to person, place, time, and purpose. Able to pay attention, focus, and respond appropriately. Pain: Minimal pain in R foot to touch Vital Signs: Within normal limits as closely monitored by nursing staff Bed Mobility/Transfers: Stand to sit onto edge of bed with contact guard assist Sit to supine minimal assist to B LE Gait: Tolerated 10 small steps + 1 turn + 4 step backs using bariatric front-wheeled walker with full weight bearing on B LE requiring contact guard assist of 2.? Patient was not short of breath nor fatigued as she did covering less distance this morning.? Step width wide. No loss of balance seen.? Decreased alexis.?Nurses Julia and Kathryn as well as LNAs Alexandria and Kay were present in room to provide assistance for safety. THERA EX: Supine hip abduction x 10 R/L DBE with chest expansion ex with B UE shoudler flexion Supine [id number] x 10 R/L DBE with chest expansions x with B UE shoulder horizontal abd/add Supine bridging x 5 with patient only able to contract gluteals and B trunk extensors but unable to lift bottom up due to high BMI Balance: Static Sitting: Good Dynamic Sitting: Fair Static Standing: Fair Dynamic Standing: Poor ASSESSMENT: Activity tolerance much improved this afternoon with increased ambulation di stance and stability demonstrated for this session. PLAN: Progress strength, mobility, and balance as tolerated. DISCHARGE RECOMMENDATIONS: [] ? Home with no services [] [] ? Home with services [specify] [] ? Home with outpatient PT [] [X] ? SNF for continued rehabilitation.? Patient will benefit from prison facility placement for continued skilled physical therapy services in order to progress mobility level, strength, and balance in preparation for a safe discharge to home. [] ? [facility] [] [] ? SNF versus LTC based on ability to participate and progress [] TREATMENT CODE/TIME: 49158 x 30 minutes, 90675 x 17 minutes beginning at 13:35 PM.
[2022-03-17] MEDS: Nystatin POWDER 15 GM JAR TP ×2 (14:09→20:51)
[2022-03-17] MEDS: IRON SUCROSE COMPLEX 300 MG in Normal Saline 250 ML 167 MG IVPB (14:31)
--- NOTE | 2022-03-17 16:13 | CHAPLAIN ---
I had a short visit with Raven. I introduced myself, explained my role and offered support. She was not interested in a longer conversation at this point.
[2022-03-17] MEDS: Simvastatin 40 MG TAB PO (20:48)
[2022-03-17] MEDS: QUEtiapine 25 MG TAB 12.5 MG PO (20:49)
[2022-03-17] MEDS: traMADol 50 MG TAB 100 MG PO (23:09)
[2022-03-18] VITALS (10 sets, daily range): BP systolic 109–141; BP diastolic 67–77; PULSE 85–92; RESP 16–18; TEMP 36.2–37.2; O2SAT 83–99
[2022-03-18] MEDS: Lactated Ringers 1,000 ML 125 ML IV ×2 (00:20→08:05)
[2022-03-18 07:13] LABS: HCT 29.6 % (36.0-46.0); HGB 8.3 g/dL (11.2-15.7); MCH 23.1 pg (27.0-33.0); MCV 83 fL (80-95); MPV 10.3 fL (8.0-11.0); Platelet Count 175 10^3/uL (130-400); RBC 3.59 10^6/uL (3.93-5.22); RDW 17.2 % (11.7-14.6); RDW-SD 51.7 fL; WBC 9.59 10^3/uL (4.4-10.8)
[2022-03-18 07:43] LABS: BUN 22 mg/dL (7-18); CREATININE 1.9 mg/dL (0.55-1.02); Calcium 8.9 mg/dL (8.5-10.1); Chloride 105 mmol/L (98-107); Estimated GFR 26.06 (mL/min/1.73m2); Glucose 107 mg/dL (74-106); Potassium 5.2 mmol/L (3.5-5.1); Sodium 141 mmol/L (136-145)
[2022-03-18] MEDS: Omeprazole 20 MG CAPCR 40 MG PO (08:02)
[2022-03-18] MEDS: DULoxetine 30 MG CAP 60 MG PO ×2 (08:03→20:19)
[2022-03-18] MEDS: Magnesium Oxide 400 MG TAB PO ×2 (08:03→20:19)
[2022-03-18] MEDS: Pregabalin 50 MG CAP PO ×3 (08:03→20:20)
[2022-03-18] MEDS: Cholecalciferol (Vitamin D3) 1,000 UNIT TAB 4000 UNITS PO (08:04)
[2022-03-18] MEDS: Metoprolol 12.5 MG TAB PO ×2 (08:04→20:19)
[2022-03-18] MEDS: Aspirin 81 MG CHEW PO (08:04)
[2022-03-18] MEDS: Calcium 600mg/Vit D 200U TAB 1 TAB PO (08:04)
[2022-03-18] MEDS: Albuterol HFA 8 GM 60 PUFF INH IH ×3 (08:22→20:20)
--- NOTE | 2022-03-18 09:11 | PDOC.CMPRO ---
- If Service Date Differs Date of service: 03/18/22 Time of Service: 09:11 Care Management Progress Note S/O: Raven was sitting up in her chair when CM met with her this morning. She reported that she is not willing to go to a SNF. Later in the day, she met with Palliative care, and agreed to follow up with them out patient. CM returned to her room when her daughter and son in law arrived, and at that time Raven agreed to referrals being sent to multiple facilities for consideration for short term rehab. CM assisted Raven to update her [place] advanced directives. CM sent referrals to [place] (first choice), the [facility], [facility], [facility], [facility] and the [facility]. CM will continue to follow. A: Raven is a 72 year old female admitted to [facility] on 03/16/22 for SANDY, dizziness with falls, anemia. P: Raven will likely return home vs SNF when medically cleared. She will transport via private vehicle by family. She will follow up with her PCP and discharge plan of care. CM will continue to follow.
[2022-03-18] MEDS: Nystatin POWDER 15 GM JAR TP ×3 (09:30→20:20)
--- NOTE | 2022-03-18 10:53 | PT.INTREAT ---
Date of service: 03/18/22 Time of Service: 10:22 PT Notes Visit Reasons: SANDY, Dizziness with Falls, Anemia Inpatient Physical Therapy Treatment Note [facility] Date: 03/18/2022 PRECAUTIONS: Fall, Activity as tolerated SUBJECTIVE: Raven is pleasant and agreeable to participating in PT. She is adamant that she does not want to discharge to anywhere but home. She acknowledges that she is not safe at home, falling frequently. She states that if she could get a Codie for home, her family wouldn't have to call the ambulance to get her up off the floor when she falls. OBJECTIVE: PAIN: No c/o pain BED MOBILITY/TRANSFERS Supine-sit: Min A with B LE with HOB flat Sit-supine: SBA with HOB at 40 degrees Sit-stand: SBA Stand-sit: SBA Bed-chair: SBA GAIT Assistive Device: Bariatric FWW Weight bearing: Full Assist: CGA Distance: 8' in a.m.; 5 steps in p.m. Deviation: Global fatigue, SOB, max cueing for FWW management ASSESSMENT: Patient tolerated session with c/o increased global fatigue and SOB with gait training, although demonstrates increased activity tolerance. PLAN: Continue with global strengthening and general conditioning for improved mobility and activity tolerance. TREATMENT CODE/TIME: Session 1: 35 minutes; 31395 x2 (10:22) Session 2: 10 minutes; 34900 (15:57)
[2022-03-18] MEDS: Insulin Aspart 300 UNITS/3 ML PEN SC ×3 (11:50→22:00)
[2022-03-18] MEDS: cefTRIAXone 1 GM/50 ML BAG IVPB (12:41)
--- NOTE | 2022-03-18 13:38 | W.PALLCONSUL ---
Date of service: 03/18/22 Time of Service: 13:38 History of Present Illness Narrative: Raven was seen in her room with her daughter, Marcia and her present. Her sig other, Rodolfo joined the visit near the end. We discussed goals of care. She has AD from 2012. She is a full code, she would only want to be on a ventilator for a short period of time. She stated today that she would not want dialysis if offered. She is OK with being in the hospital if needed. We discussed the PT recommendation that she go to rehab to get stronger prior to going home. She is reluctant to go to rehab but after discussing, she is open to her daughter going to visit [facility] for her consideration. Her family thinks she needs rehab to be successful at home. She wants to revisit AD with Marcia present. She is agreeable to f/u with palliative as an outpatient. Assessment and Plan Assessment and plan (1) Fall: Status: Acute (2) Dizziness: Status: Acute (3) Anemia: Status: Chronic (4) SANDY (acute kidney injury): Status: Acute (5) Chronic kidney disease: Status: Chronic (6) Essential hypertension: Status: Acute (7) Diabetes mellitus type 2: Status: Chronic (8) Palliative care patient: Assessment and plan: Raven is a pleasant 72 yo female with weakness, falls, obesity, DM, UTI, CKD. Discussed goals of care. She is a full code, she would only want to be on a ventilator for a short period of time. She stated today that she would not want dialysis if offered. She is OK with being in the hospital if needed. We discussed the PT recommendation that she go to rehab to get stronger prior to going home. She is reluctant to go to rehab but after discussing, she is open to her daughter going to visit [facility] for her consideration. Her family thinks she needs rehab to be successful at home. She wants to revisit AD with Marcia present. She is agreeable to f/u with palliative as an outpatient. Review of Systems Narrative: Denies SOB, CP, nausea/vomiting. 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 Leukocytosis. Intermittently febrile. Diverticulitis (Chronic) Recurrent. S/p high risk hemicolectomy in the setting of sepsis and hypotension 03/22/2013. Complication of a stomal leak resulting in an abdominal abscess. Readmitted to [facility] 05/03/13 emergently with sepsis syndrome and had an abdominal abscess drained. Com[facility] re[facility] at [facility] with discharge most recently on after extensive dressing care of the abdominal wound with a wound VAC. Hepatitis C (Chronic) Recent negative viral count. Depression (Chronic) Vitamin D deficiency (Chronic) History of colostomy (Chronic) Medical History Anemia (05/03/13) Hemoglobin 8.2. Anemia Depression Diabetes mellitus Fall Gastroesophageal reflux disease GERD (gastroesophageal reflux disease) History of breast cancer History of hepatitis C History of incisional hernia History of renal failure Migraine Morbid obesity Osteopenia Palliative care patient Vitamin D deficiency Surgical History Colectomy H/O mastectomy Hernia Repair, Incisional x2 S/P cholecystectomy Family History Mother No problems noted. Father No problems noted. Social History Smoking/Tobacco Use Status: Former Tobacco Use Smoking risk assessment performed?: Yes Alcohol Intake: never Drug use: Never Substance use type: does not use Do you feel safe at home: Yes Do you feel safe in your relationship?: Yes Exam Narrative Exam Narrative: General: pleasant 72 year old female, obese, sitting up in recliner with family members present. She is awake and alert, answers questions appropriately. HEENT: normocephalic, atraumatic, EOMI, mmm. Neck: supple. Respiratory: respirations appear even and unlabored. Extremities: moves all 4 extremities freely. Results Last Vital Signs Temp 37.0 C 03/18/22 11:42 Pulse 91 H 03/18/22 11:43 Resp 16 03/18/22 11:42 BP 109/67 03/18/22 11:42 Pulse Ox 95 03/18/22 11:42 Labs Result diagrams: 03/18/22 06:25 03/18/22 06:25 Labs: Laboratory Results - last 24 hr 03/18/22 03/18/22 03/18/22 06:25 06:25 06:25 WBC 9.59 RBC 3.59 L Hgb 8.3 L Hct 29.6 L MCV 83 MCH 23.1 L MCHC 28.0 L RDW 17.2 H Plt Count 175 MPV 10.3 Sodium 141 Potassium 5.2 H D Chloride 105 Carbon Dioxide 33.0 H Anion Gap 3.0 BUN 22 H Creatinine 1.9 H Estimated GFR/1.73 m2 26.06 Glucose 107 H Calcium 8.9 Magnesium 2.0 Cancelled
--- NOTE | 2022-03-18 15:58 | W.PM.PROGNOT ---
Date of Service Date of service: 03/18/22 Time of Service: 15:58 Assessment and Plan Assessment and plan (1) UTI (urinary tract infection): Status: Acute Assessment and plan: ID& sensitivity pending. continue day 2 ceftriaxone (2) SANDY (acute kidney injury): Start date: 03/16/22 Status: Acute Assessment and plan: will discontinue IV fluids avoid nephrotoxic drugs, renal dosing continue queen for accurate I&O follow labs closely consider renal ultrasound if not improving (3) Anemia: Status: Chronic Assessment and plan: iron deficient, replete check stool for OB (4) Dizziness: Start date: 03/16/22 Status: Resolved Assessment and plan: This appears to be associate with her acute dehydration and will be monitored as she is rehydrated. (5) Fall: Start date: 03/16/22 Status: Acute Assessment and plan: physical therapy and Occupational Therapy consultation considering inpatient rehabilitation which is recommendation (6) D-dimer, elevated: Start date: 03/16/22 Status: Acute Assessment and plan: of unknown significance and expected with multiple recent falls. Follow-up clinically and consider venous Dopplers lower extremities and CT of the chest if creatinine improves. (7) Diabetes mellitus type 2: Status: Chronic Assessment and plan: Monitor with glucometer and short acting insulin coverage holding Lantus for now and other outpatient treatments. Watch for hypoglycemia. diabetic diet (8) DVT prophylaxis: Status: Acute Assessment and plan: full dose lovenox (9) Discharge planning issues: Status: Acute Assessment and plan: considering inpatient rehabilitation, referrals sent to [facility] to do a site visit anticipate medical discharge over next few days discussed with DR De Guzman. Subjective Subjective Patient reports: no new complaints, feels better, tolerating liquids well, tolerating a regular diet and afebrile; denies shortness of breath Interval history since last seen: working with physical therapy but slow to progress Exam Const General: cooperative, no acute distress and ill appearing chronically Nutritional Appearance: obese morbidly obese Orientation: alert, awake and oriented x3 HENMT Head: normal to inspection, normocephalic and atraumatic Mouth: oral mucosae normal Eyes General: appearance normal, both eyes and all related structures Sclera: sclerae normal Resp Effort & Inspection: normal respiratory effort Cardio Rate: regular rate Rhythm: regular rhythm GI Inspection: large pannus and obesity Palpation: soft and nontender Extrem General: no pedal edema Objective Last Vital Signs Temp 37.0 C 03/18/22 11:42 Pulse 91 H 03/18/22 11:43 Resp 16 03/18/22 11:42 BP 109/67 03/18/22 11:42 Pulse Ox 95 03/18/22 11:42 Laboratory Results - last 24 hr 03/18/22 03/18/22 03/18/22 06:25 06:25 06:25 WBC 9.59 RBC 3.59 L Hgb 8.3 L Hct 29.6 L MCV 83 MCH 23.1 L MCHC 28.0 L RDW 17.2 H Plt Count 175 MPV 10.3 Sodium 141 Potassium 5.2 H D Chloride 105 Carbon Dioxide 33.0 H Anion Gap 3.0 BUN 22 H Creatinine 1.9 H Estimated GFR/1.73 m2 26.06 Glucose 107 H Calcium 8.9 Magnesium 2.0 Cancelled
[2022-03-18] MEDS: Lactated Ringers 1,000 ML 80 ML IV (16:53)
[2022-03-18] MEDS: QUEtiapine 25 MG TAB 12.5 MG PO (20:19)
[2022-03-18] MEDS: Simvastatin 40 MG TAB PO (20:19)
[2022-03-18] MEDS: Normal Saline Flush 10 ML SYR IVP (20:25)
[2022-03-18] MEDS: Lidocaine 5% Patch 2 PATCH TP (22:00)
[2022-03-18] MEDS: traMADol 50 MG TAB 100 MG PO (22:00)
[2022-03-19] VITALS (9 sets, daily range): BP systolic 107–147; BP diastolic 65–75; PULSE 85–94; RESP 16–20; TEMP 36.2–36.9; O2SAT 94–99
[2022-03-19] MEDS: Albuterol HFA 8 GM 60 PUFF INH IH ×3 (00:35→19:45)
[2022-03-19] MEDS: Normal Saline Flush 10 ML SYR IVP ×4 (00:38→19:44)
[2022-03-19] MEDS: Lactated Ringers 1,000 ML 80 ML IV (05:00)
--- NOTE | 2022-03-19 08:26 | PT.INTREAT ---
Date of service: 03/19/22 Time of Service: 08:08 PT Notes Visit Reasons: SANDY, Dizziness with Falls, Anemia Inpatient Physical Therapy Treatment Note [facility] Date: 03/19/2022 PRECAUTIONS: Fall, Activity as tolerated SUBJECTIVE: Raven is pleasant and agreeable to participating in PT. She reports numbness in B feet due to laying in bed too long. OBJECTIVE: PAIN: No c/o pain BED MOBILITY/TRANSFERS Supine-sit: SBA with HOB at 50 degrees Sit-stand: SBA Stand-sit: SBA Bed-chair: SBA GAIT Assistive Device: Bariatric FWW Weight bearing: Full Assist: SBA x2 Distance: 5' to chair Deviation: Global fatigue, SOB ASSESSMENT: Patient tolerated session with c/o increased global fatigue and SOB with gait training. Patient demonstrates global weakness and severe deconditioning. She is not receptive to progressing her gait distance at this time. She is also not receptive to SNF-level placement at this time, although based on current functional mobility and activity tolerance, patient is not safe to return to home where she has reportedly been falling multiple times per week. PLAN: Continue with global strengthening and general conditioning for improved mobility and activity tolerance. TREATMENT CODE/TIME:11 minutes; 12543 (08:08)
[2022-03-19] MEDS: cefTRIAXone 1 GM/50 ML BAG IVPB (09:00)
[2022-03-19] MEDS: Cholecalciferol (Vitamin D3) 1,000 UNIT TAB 4000 UNITS PO (09:01)
[2022-03-19] MEDS: Omeprazole 20 MG CAPCR 40 MG PO (09:01)
[2022-03-19] MEDS: DULoxetine 30 MG CAP 60 MG PO ×2 (09:01→19:44)
[2022-03-19] MEDS: Calcium 600mg/Vit D 200U TAB 1 TAB PO (09:01)
[2022-03-19] MEDS: Aspirin 81 MG CHEW PO (09:01)
[2022-03-19] MEDS: Magnesium Oxide 400 MG TAB PO ×2 (09:01→19:45)
[2022-03-19] MEDS: Pregabalin 50 MG CAP PO ×3 (09:01→19:45)
[2022-03-19] MEDS: Metoprolol 12.5 MG TAB PO ×2 (09:01→19:44)
[2022-03-19] MEDS: Nystatin POWDER 15 GM JAR TP (10:13)
[2022-03-19] MEDS: Patch Removal 2 EACH TP (10:15)
[2022-03-19] MEDS: Insulin Aspart 300 UNITS/3 ML PEN SC ×3 (12:09→21:27)
[2022-03-19] MEDS: Nystatin POWDER 60 GM JAR TP (15:02)
[2022-03-19] MEDS: Acetaminophen 325 MG TAB PO (16:21)
--- NOTE | 2022-03-19 16:48 | W.PM.PROGNOT ---
Date of Service Date of service: 03/19/22 Time of Service: 16:48 Assessment and Plan Assessment and plan (1) UTI (urinary tract infection): Status: Acute Assessment and plan: ID& sensitivity seerratia Marcescens. sensitive to ceftriaxone - continue day 3 ceftriaxone (2) SANDY (acute kidney injury): Start date: 03/16/22 Status: Acute Assessment and plan: will discontinue IV fluids avoid nephrotoxic drugs, renal dosing continue queen for accurate I&O follow labs closely consider renal ultrasound if not improving K 5.2 - it was 4.1 on 03/18/22 - will recheck ~ 4:30 PM today (3) Anemia: Status: Chronic Assessment and plan: iron deficient, replete check stool for OB - negative to date H&H 04/11 - recheck 03/20/2022 (4) Dizziness: Start date: 03/16/22 Status: Resolved Assessment and plan: This appears to be associated with her acute dehydration and will be monitored as she is rehydrated. No dizziness reported (5) Fall: Start date: 03/16/22 Status: Acute Assessment and plan: physical therapy and Occupational Therapy consultation considering inpatient rehabilitation which is recommendation (6) D-dimer, elevated: Start date: 03/16/22 Status: Acute Assessment and plan: of unknown significance and expected with multiple recent falls. Follow-up clinically and consider venous Dopplers lower extremities and CT of the chest if creatinine improves - sl better today 1.9, still high No diff breathing - will continue to monitor (7) Diabetes mellitus type 2: Status: Chronic Assessment and plan: Monitor with glucometer and short acting insulin coverage holding Lantus for now and other outpatient treatments. Watch for hypoglycemia. diabetic diet Glucose -107 this am (8) DVT prophylaxis: Status: Acute Assessment and plan: full dose lovenox (9) Discharge planning issues: Status: Acute Assessment and plan: considering inpatient rehabilitation, referrals sent to [facility] to do a site visit anticipate medical discharge over next few days discussed with Dr De Guzman. Subjective Subjective Patient reports: no new complaints Exam Const General: cooperative, no acute distress and ill appearing chronically Nutritional Appearance: obese morbidly obese Orientation: alert, awake and oriented x3 HENMT Head: normal to inspection, normocephalic and atraumatic Mouth: oral mucosae normal Eyes General: appearance normal, both eyes and all related structures Sclera: sclerae normal Resp Effort & Inspection: normal respiratory effort Cardio Rate: regular rate Rhythm: regular rhythm GI Inspection: large pannus and obesity Palpation: soft and nontender Extrem General: no pedal edema Objective Last Vital Signs Temp 36.5 C 03/19/22 16:01 Pulse 85 03/19/22 16:01 Resp 20 03/19/22 16:01 BP 147/75 H 03/19/22 16:01 Pulse Ox 99 03/19/22 16:01 Reviewed Pertinent PMH: Yes
[2022-03-19 17:02] LABS: Anion Gap 6.3 mmol/L (3-11); BUN 21 mg/dL (7-18); CO2 28.7 mmol/L (21.0-32.0); CREATININE 1.6 mg/dL (0.55-1.02); Calcium 9.4 mg/dL (8.5-10.1); Chloride 107 mmol/L (98-107); Estimated GFR 31.78 (mL/min/1.73m2); Glucose 181 mg/dL (74-106); Sodium 142 mmol/L (136-145)
[2022-03-19 17:07] LABS: Potassium 6.8 mmol/L (3.5-5.1)
[2022-03-19 18:35] LABS: Abs Immature Grans 0.12 10^3/uL (0.0-0.06); Absolute Basophil Count 0.03 10^3/uL (0.0-0.2); Absolute Eosinophil Count 0.51 10^3/uL (0.0-0.7); Absolute Lymphocyte Count 1.11 10^3/uL (1.2-3.4); Absolute Monocyte Count 0.56 10^3/uL (0.1-0.8); Absolute Neutrophil Count 6.82 10^3/uL (1.2-6.7); Basophils % 0.3; Eosinophils % 5.6; HCT 29.8 % (36.0-46.0); HGB 8.2 g/dL (11.2-15.7); Immature Grans % 1.3; Lymphocytes % 12.1; MCH 23.4 pg (27.0-33.0); MCHC 27.5 % (32.0-36.0); MCV 85 fL (80-95); MPV 9.7 fL (8.0-11.0); Monocytes % 6.1; Neutrophils % 74.6; Platelet Count 169 10^3/uL (130-400); RDW 17.2 % (11.7-14.6); RDW-SD 52.4 fL; WBC 9.15 10^3/uL (4.4-10.8)
[2022-03-19 18:44] LABS: Potassium 6.1 mmol/L (3.5-5.1)
[2022-03-19 18:58] LABS: Diff Comment RBC Morph Reviewed; Hypochromasia 2+; Stomatocytes 2+
[2022-03-19] MEDS: Simvastatin 40 MG TAB PO (19:45)
[2022-03-19] MEDS: QUEtiapine 25 MG TAB 12.5 MG PO (19:45)
[2022-03-19] MEDS: Sodium Zirconium Cyclosilicate 10 GM PKT PO (19:46)
[2022-03-19] MEDS: traMADol 50 MG TAB 100 MG PO (21:27)
[2022-03-19] MEDS: Lidocaine 5% Patch 2 PATCH TP (21:27)
[2022-03-20] VITALS (13 sets, daily range): BP systolic 132–149; BP diastolic 72–78; PULSE 71–100; RESP 16–24; TEMP 36.3–37.3; O2SAT 94–98
[2022-03-20] MEDS: Albuterol HFA 8 GM 60 PUFF INH IH ×6 (00:25→19:58)
[2022-03-20 07:18] LABS: Abs Immature Grans 0.16 10^3/uL (0.0-0.06); Absolute Basophil Count 0.04 10^3/uL (0.0-0.2); Absolute Eosinophil Count 0.45 10^3/uL (0.0-0.7); Absolute Lymphocyte Count 1.53 10^3/uL (1.2-3.4); Absolute Monocyte Count 0.79 10^3/uL (0.1-0.8); Absolute Neutrophil Count 6.26 10^3/uL (1.2-6.7); Basophils % 0.4; Eosinophils % 4.9; HCT 29.2 % (36.0-46.0); HGB 8.2 g/dL (11.2-15.7); Immature Grans % 1.7; Lymphocytes % 16.6; MCH 23.4 pg (27.0-33.0); MCHC 28.1 % (32.0-36.0); MCV 83 fL (80-95); MPV 10.4 fL (8.0-11.0); Monocytes % 8.6; Neutrophils % 67.8; Platelet Count 162 10^3/uL (130-400); RDW 17.4 % (11.7-14.6); RDW-SD 51.5 fL; WBC 9.23 10^3/uL (4.4-10.8)
[2022-03-20 07:34] LABS: ALT 16 U/L (14-59); AST 23 U/L (15-37); Albumin 2.4 g/dL (3.4-5.0); Alkaline Phosphatase 92 U/L (46-116); BUN 20 mg/dL (7-18); Bilirubin, Total 0.2 mg/dL (0.2-1.0); CREATININE 1.5 mg/dL (0.55-1.02); Calcium 9.4 mg/dL (8.5-10.1); Chloride 107 mmol/L (98-107); Estimated GFR 34.23 (mL/min/1.73m2); Glucose 152 mg/dL (74-106); Magnesium 1.5 mg/dL (1.8-2.4); Sodium 143 mmol/L (136-145); Total Protein 6.6 g/dL (6.4-8.2)
[2022-03-20 07:38] LABS: Potassium 6.1 mmol/L (3.5-5.1)
--- NOTE | 2022-03-20 08:45 | RT.EKG_ITS ---
APPROVED REPORT Exam: Resting ECG Reason for Exam: Hyperkalemia Patient Location: I HR:102 bpm ECG Measurements Heart Rate 102 AXIS TN 150 P 70 QRSd 82 QRS 41 QT 315 T 37 QTc 411 Conclusion Sinus tachycardia...rate> 99 Atrial premature complex...SV complex w/ short R-R interval Low voltage, precordial leads...precordial leads <1.0mV Poor R wave progression
[2022-03-20 09:28] LABS: BE (Venous) 5 mmol/L (-2-3); HCO3 (Venous) 31 mmol/L (23-28); O2 Sat (Venous) 94 %; TCO2 (Venous) 30 mmol/L (24-29); pCO2 (Venous) 55 mmHg (41-51); pH (Venous) 7.36 (7.31-7.41); pO2 (Venous) 65 mmHg
[2022-03-20] MEDS: Normal Saline 500 ML 30 ML IV (09:54)
[2022-03-20] MEDS: Sodium Zirconium Cyclosilicate 10 GM PKT PO ×3 (09:54→22:19)
[2022-03-20] MEDS: Normal Saline Flush 10 ML SYR IVP (09:55)
[2022-03-20] MEDS: Omeprazole 20 MG CAPCR 40 MG PO (09:55)
[2022-03-20] MEDS: cefTRIAXone 1 GM/50 ML BAG IVPB (09:55)
[2022-03-20] MEDS: Cholecalciferol (Vitamin D3) 1,000 UNIT TAB 4000 UNITS PO (09:56)
[2022-03-20] MEDS: Pregabalin 50 MG CAP PO (09:56)
[2022-03-20] MEDS: Metoprolol 12.5 MG TAB PO ×2 (09:56→19:59)
[2022-03-20] MEDS: Patch Removal 2 EACH TP (09:56)
[2022-03-20] MEDS: Magnesium Oxide 400 MG TAB PO ×2 (09:56→19:59)
[2022-03-20] MEDS: Calcium 600mg/Vit D 200U TAB 1 TAB PO (09:56)
[2022-03-20] MEDS: DULoxetine 30 MG CAP 60 MG PO ×2 (09:56→20:00)
[2022-03-20] MEDS: Aspirin 81 MG CHEW PO (09:58)
[2022-03-20 10:05] LABS: Bilirubin Negative (Negative); Blood Moderate (Negative); Clarity Clear (Clear); Glucose Negative (Negative); Ketones Negative (Negative); Leukocyte Esterase Small (Negative); Nitrite Negative (Negative); Specific Gravity 1.015 (1.005-1.025); Urobilinogen 0.2 EU/dL (Up TO 0.2); pH 5.5 (5-8)
[2022-03-20 10:15] LABS: Bacteria Rare HPF (Negative); C & S Indicated? Yes; Casts 0-2 Hyaline LPF (Negative); Crystals Negative HPF (Negative); Epithelial Cells Few HPF (Negative); Mucus Negative (Negative)
--- NOTE | 2022-03-20 11:27 | PT.INTREAT ---
Date of service: 03/20/22 Time of Service: 09:05 PT Notes Visit Reasons: SANDY, Dizziness with Falls, Anemia Inpatient Physical Therapy Treatment Note [facility] Date: 03/20/2022 PRECAUTIONS: Fall, Activity as tolerated SUBJECTIVE: Raven reports that she is not feeling well today. She reports that she did not sleep well and that she is not feeling well today. She reports that her Randle was replaced with a new one and that it is painful. OBJECTIVE: Session was interrupted x2. At third attempt, patient had been transferred to her chair by nursing, who reports that she is very fatigued and unable to do more at this time. PAIN: Patient c/o pain with Randle catheter BED MOBILITY/TRANSFERS Supine-sit: CGA with HOB at 50 degrees Sit-supine: SBA with HOB at 50 degrees ASSESSMENT: Patient demonstrates severe global weakness and very limited activity tolerance. Patient is not safe to return to home at this point. Recommend discharge to SNF-level facility when medically cleared for continued strengthening. PLAN: Continue with global strengthening and general conditioning for improved mobility and activity tolerance. TREATMENT CODE/TIME: 10 minutes; 74665 (09:05)
[2022-03-20] MEDS: Insulin Aspart 300 UNITS/3 ML PEN SC ×3 (11:53→22:19)
[2022-03-20] MEDS: Pregabalin 50 MG CAP 100 MG PO ×2 (13:06→20:00)
[2022-03-20] MEDS: oxyCODONE 5 MG TAB PO (13:06)
--- NOTE | 2022-03-20 14:38 | W.PM.PROGNOT ---
Date of Service Date of service: 03/20/22 Time of Service: 14:38 Assessment and Plan Assessment and plan (1) UTI (urinary tract infection): Status: Acute Assessment and plan: ID& sensitivity seerratia Marcescens. sensitive to ceftriaxone - continue day 4 ceftriaxone (2) SANDY (acute kidney injury): Status: Acute Assessment and plan: Bun and creat improving BUN 21/Creat 1.5 will discontinue IV fluids avoid nephrotoxic drugs, renal dosing continue queen for accurate I&O follow labs closely Potassium 6.1 - after lokalma x 3 - down to 5.3 - unclear why it went up (3) Anemia: Status: Chronic Assessment and plan: iron deficient, replete check stool for OB - negative to date H&H 04/11 - flat (4) Dizziness: Status: Resolved Assessment and plan: This appears to be associated with her acute dehydration and will be monitored as she is rehydrated. No dizziness reported (5) Pain: Status: Acute Assessment and plan: Bilateral foot pain - chronic - oxycodone prn - increased lyrica to 100 mg TID after discussion with pharmacy and Dr De Guzman (6) Fall: Status: Acute Assessment and plan: physical therapy and Occupational Therapy consultation considering inpatient rehabilitation which is recommendation (7) D-dimer, elevated: Status: Acute Assessment and plan: of unknown significance and expected with multiple recent falls. No diff breathing - will continue to monitor (8) Diabetes mellitus type 2: Status: Chronic Assessment and plan: Monitor with glucometer and short acting insulin coverage holding Lantus for now and other outpatient treatments. Watch for hypoglycemia. diabetic diet Glucose -152 this am (9) DVT prophylaxis: Status: Acute Assessment and plan: full dose lovenox (10) Discharge planning issues: Status: Acute Assessment and plan: considering inpatient rehabilitation, referrals sent to [facility] to do a site visit anticipate medical discharge over next few days discussed with Dr De Guzman. Subjective Subjective Patient reports: feels better Interval history since last seen: C/O 05/23 pain to bilat feet - not new, but not controlled currently Exam Const General: cooperative, no acute distress and ill appearing chronically Nutritional Appearance: obese morbidly obese Orientation: alert, awake and oriented x3 HENMT Head: normal to inspection, normocephalic and atraumatic Mouth: oral mucosae normal Eyes General: appearance normal, both eyes and all related structures Sclera: sclerae normal Resp Effort & Inspection: normal respiratory effort Cardio Rate: regular rate Rhythm: regular rhythm GI Inspection: large pannus and obesity Palpation: soft and nontender Extrem General: no pedal edema Objective Last Vital Signs Temp 37.2 C 03/20/22 08:09 Pulse 100 H 03/20/22 09:01 Resp 24 03/20/22 09:01 BP 132/76 03/20/22 08:09 Pulse Ox 94 03/20/22 09:01 Laboratory Results - last 24 hr 03/19/22 03/19/22 03/19/22 16:30 18:20 18:20 WBC 9.15 RBC 3.50 L Hgb 8.2 L Hct 29.8 L MCV 85 MCH 23.4 L MCHC 27.5 L RDW 17.2 H Plt Count 169 MPV 9.7 Immature Gran % 1.3 Neutrophils % 74.6 Lymphocytes % 12.1 Monocytes % 6.1 Eosinophils % 5.6 Basophils % 0.3 Nucleated RBC % 0.0 Absolute Neutrophils 6.82 H Absolute Lymphocytes 1.11 L Absolute Monocytes 0.56 Absolute Eosinophils 0.51 Absolute Basophils 0.03 RBC Morphology See Below Hypochromasia 2+ Stomatocytes 2+ VBG pH VBG pCO2 VBG pO2 VBG HCO3 VBG Total CO2 VBG O2 Saturation VBG Base Excess Sodium 142 Potassium 6.8 H* D 6.1 H* Chloride 107 Carbon Dioxide 28.7 Anion Gap 6.3 BUN 21 H Creatinine 1.6 H Estimated GFR/1.73 m2 31.78 Glucose 181 H Calcium 9.4 Magnesium Total Bilirubin AST ALT Alkaline Phosphatase Total Protein Albumin Urine Color Urine Clarity Urine pH Ur Specific Reading Urine Protein Urine Ketones Urine Blood Urine Nitrite Urine Bilirubin Urine Urobilinogen Ur Leukocyte Esterase Urine RBC Urine WBC Ur Epithelial Cells Urine Crystals Urine Bacteria Urine Casts Urine Mucus Ur Culture Indicated? Urine Glucose 03/20/22 03/20/22 03/20/22 06:50 06:50 09:25 WBC 9.23 RBC 3.50 L Hgb 8.2 L Hct 29.2 L MCV 83 MCH 23.4 L MCHC 28.1 L RDW 17.4 H Plt Count 162 MPV 10.4 Immature Gran % 1.7 Neutrophils % 67.8 Lymphocytes % 16.6 Monocytes % 8.6 Eosinophils % 4.9 Basophils % 0.4 Nucleated RBC % 0.0 Absolute Neutrophils 6.26 Absolute Lymphocytes 1.53 Absolute Monocytes 0.79 Absolute Eosinophils 0.45 Absolute Basophils 0.04 RBC Morphology Hypochromasia Stomatocytes VBG pH 7.36 VBG pCO2 55 H VBG pO2 65 VBG HCO3 31 H VBG Total CO2 30 H VBG O2 Saturation 94 VBG Base Excess 5 H Sodium 143 Potassium 6.1 H* Chloride 107 Carbon Dioxide 33.0 H Anion Gap 3.0 BUN 20 H Creatinine 1.5 H Estimated GFR/1.73 m2 34.23 Glucose 152 H Calcium 9.4 Magnesium 1.5 L Total Bilirubin 0.2 AST 23 ALT 16 Alkaline Phosphatase 92 Total Protein 6.6 Albumin 2.4 L Urine Color Urine Clarity Urine pH Ur Specific [place] Urine Protein Urine Ketones Urine Blood Urine Nitrite Urine Bilirubin Urine Urobilinogen Ur Leukocyte Esterase Urine RBC Urine WBC Ur Epithelial Cells Urine Crystals Urine Bacteria Urine Casts Urine Mucus Ur Culture Indicated? Urine Glucose 03/20/22 09:50 WBC RBC Hgb Hct MCV MCH MCHC RDW Plt Count MPV Immature Gran % Neutrophils % Lymphocytes % Monocytes % Eosinophils % Basophils % Nucleated RBC % Absolute Neutrophils Absolute Lymphocytes Absolute Monocytes Absolute Eosinophils Absolute Basophils RBC Morphology Hypochromasia Stomatocytes VBG pH VBG pCO2 VBG pO2 VBG HCO3 VBG Total CO2 VBG O2 Saturation VBG Base Excess Sodium Potassium Chloride Carbon Dioxide Anion Gap BUN Creatinine Estimated GFR/1.73 m2 Glucose Calcium Magnesium Total Bilirubin AST ALT Alkaline Phosphatase Total Protein Albumin Urine Color Yellow Urine Clarity Clear Urine pH 5.5 Ur Specific Reading 1.015 Urine Protein 30 H Urine Ketones Negative Urine Blood Moderate H Urine Nitrite Negative Urine Bilirubin Negative Urine Urobilinogen 0.2 Ur Leukocyte Esterase Small H Urine RBC 10-20 H Urine WBC 10-20 H Ur Epithelial Cells Few Urine Crystals Negative Urine Bacteria Rare Urine Casts 0-2 Hyaline Urine Mucus Negative Ur Culture Indicated? Yes Urine Glucose Negative Reviewed Pertinent PMH: Yes
[2022-03-20 15:39] LABS: Anion Gap 0.4 mmol/L (3-11); BUN 21 mg/dL (7-18); CO2 34.6 mmol/L (21.0-32.0); CREATININE 1.5 mg/dL (0.55-1.02); Calcium 8.9 mg/dL (8.5-10.1); Chloride 105 mmol/L (98-107); Estimated GFR 34.23 (mL/min/1.73m2); Glucose 230 mg/dL (74-106); Potassium 5.3 mmol/L (3.5-5.1); Sodium 140 mmol/L (136-145)
[2022-03-20] MEDS: Nystatin POWDER 60 GM JAR TP ×2 (15:41→19:59)
[2022-03-20 17:35] LABS: Sodium, Urine 109 mmol/L
[2022-03-20 17:38] LABS: POTASSIUM,URINE RANDOM 16 mmol/L
[2022-03-20] MEDS: QUEtiapine 25 MG TAB 12.5 MG PO (19:59)
[2022-03-20] MEDS: Simvastatin 40 MG TAB PO (20:00)
[2022-03-20] MEDS: traMADol 50 MG TAB 100 MG PO (22:19)
[2022-03-20] MEDS: Lidocaine 5% Patch 2 PATCH TP (22:20)
[2022-03-21] VITALS (8 sets, daily range): BP systolic 121–146; BP diastolic 60–80; PULSE 77–97; RESP 17–22; TEMP 36.2–37.1; O2SAT 94–96
[2022-03-21] MEDS: Albuterol HFA 8 GM 60 PUFF INH IH ×5 (04:37→20:10)
[2022-03-21] MEDS: Sodium Zirconium Cyclosilicate 10 GM PKT PO (06:02)
[2022-03-21] MEDS: Magnesium Oxide 400 MG TAB PO ×2 (08:16→20:11)
[2022-03-21] MEDS: Aspirin 81 MG CHEW PO (08:16)
[2022-03-21] MEDS: Pregabalin 50 MG CAP 100 MG PO ×3 (08:17→20:11)
[2022-03-21] MEDS: Omeprazole 20 MG CAPCR 40 MG PO (08:17)
[2022-03-21] MEDS: DULoxetine 30 MG CAP 60 MG PO ×2 (08:17→20:11)
[2022-03-21] MEDS: Cholecalciferol (Vitamin D3) 1,000 UNIT TAB 4000 UNITS PO (08:17)
[2022-03-21] MEDS: Metoprolol 12.5 MG TAB PO ×2 (08:17→20:11)
[2022-03-21] MEDS: Calcium 600mg/Vit D 200U TAB 1 TAB PO (08:18)
[2022-03-21] MEDS: cefTRIAXone 1 GM/50 ML BAG IVPB (08:18)
[2022-03-21] MEDS: Normal Saline Flush 10 ML SYR IVP (08:19)
[2022-03-21] MEDS: Nystatin POWDER 60 GM JAR TP ×3 (08:20→20:12)
[2022-03-21] MEDS: Insulin Aspart 300 UNITS/3 ML PEN SC ×4 (08:20→22:20)
[2022-03-21] MEDS: Acetaminophen 325 MG TAB PO (08:44)
[2022-03-21] MEDS: Patch Removal 2 EACH TP (10:00)
[2022-03-21 10:20] LABS: Abs Immature Grans 0.15 10^3/uL (0.0-0.06); Absolute Basophil Count 0.04 10^3/uL (0.0-0.2); Absolute Eosinophil Count 0.46 10^3/uL (0.0-0.7); Absolute Lymphocyte Count 1.07 10^3/uL (1.2-3.4); Absolute Monocyte Count 0.61 10^3/uL (0.1-0.8); Absolute Neutrophil Count 6.16 10^3/uL (1.2-6.7); Basophils % 0.5; Eosinophils % 5.4; HCT 28.1 % (36.0-46.0); HGB 7.8 g/dL (11.2-15.7); Immature Grans % 1.8; Lymphocytes % 12.6; MCH 23.6 pg (27.0-33.0); MCHC 27.8 % (32.0-36.0); MCV 85 fL (80-95); Monocytes % 7.2; Neutrophils % 72.5; Platelet Count 152 10^3/uL (130-400); RDW 17.7 % (11.7-14.6); WBC 8.49 10^3/uL (4.4-10.8)
[2022-03-21 10:34] LABS: Anion Gap 3.6 mmol/L (3-11); BUN 19 mg/dL (7-18); CO2 34.4 mmol/L (21.0-32.0); CREATININE 1.4 mg/dL (0.55-1.02); Chloride 103 mmol/L (98-107); Estimated GFR 37.07 (mL/min/1.73m2); Glucose 239 mg/dL (74-106); Magnesium 1.2 mg/dL (1.8-2.4); Potassium 4.6 mmol/L (3.5-5.1); Sodium 141 mmol/L (136-145)
[2022-03-21 10:35] LABS: Diff Comment RBC Morph Reviewed; Hypochromasia 1+; Polychromasia Present
--- NOTE | 2022-03-21 11:54 | PGE_ITS ---
Date of Service Date of service: 03/21/22 Time of Service: 11:54 Assessment and Plan Assessment and plan (1) UTI (urinary tract infection): Status: Acute Assessment and plan: ID& sensitivity seerratia Marcescens. sensitive to ceftriaxone - continue day 5 ceftriaxone (2) SANDY (acute kidney injury): Status: Acute Assessment and plan: Bun and creat improving BUN 21/Creat 1.5 will discontinue IV fluids avoid nephrotoxic drugs, renal dosing continue queen for accurate I&O follow labs closely Potassium 4.6 (3) Anemia: Status: Chronic Assessment and plan: iron deficient, replete check stool for OB - negative to date H&H down 7.8 - iron 325 mg BID (4) Pain: Status: Acute Assessment and plan: Bilateral foot pain - chronic - oxycodone prn - increased lyrica to 100 mg TID after discussion with pharmacy and Dr De Guzman Improved after tylenol, she asked for oxycodone this morning stating she had 10/10 bilat foot pain, hopefully the increase in Lyrica will negate the need for a narcotic pain reliever (5) Fall: Status: Acute Assessment and plan: physical therapy and Occupational Therapy consultation considering inpatient rehabilitation which is recommendation - awaiting daughters thought on [facility] for her; will check with care mgt (6) D-dimer, elevated: Status: Acute Assessment and plan: of unknown significance and expected with multiple recent falls. No diff breathing - will continue to monitor (7) Diabetes mellitus type 2: Status: Chronic Assessment and plan: Monitor with glucometer and short acting insulin coverage holding Lantus for now and other outpatient treatments. Watch for hypoglycemia. diabetic diet Glucose - this am (8) DVT prophylaxis: Status: Acute Assessment and plan: full dose lovenox (9) Discharge planning issues: Status: Acute Assessment and plan: considering inpatient rehabilitation, [facility] to do a site visit anticipate medical discharge over next few days discussed with Dr De Guzman. Subjective Subjective Patient reports: no new complaints, feels better, still having pain (bilat feet ), tolerating a regular diet and afebrile; denies diarrhea, nausea, vomiting or shortness of breath Interval history since last seen: Raven states today she does not want to participate in PT and she wants to go home. She states she does not want to go to rehab, ever. She states shes lives with someone that can help her and her family is trying to get rid of her. She does not have much motivation to get better. Palliative care is seeing her again today. When asked what her goals are - go home. Exam Const General: cooperative, no acute distress and ill appearing chronically Nutritional Appearance: obese morbidly obese Orientation: alert, awake and oriented x3 HENMT Head: normal to inspection, normocephalic and atraumatic Mouth: oral mucosae normal Eyes General: appearance normal, both eyes and all related structures Sclera: sclerae normal Resp Effort & Inspection: normal respiratory effort Cardio Rate: regular rate Rhythm: regular rhythm GI Inspection: large pannus and obesity Palpation: soft and nontender Extrem General: no pedal edema Objective Last Vital Signs Temp 36.8 C 03/21/22 11:19 Pulse 87 03/21/22 11:27 Resp 19 03/21/22 11:19 BP 142/77 H 03/21/22 11:19 Pulse Ox 94 03/21/22 11:19 Laboratory Results - last 24 hr 03/20/22 03/20/22 03/20/22 10:20 10:20 15:22 WBC RBC Hgb Hct MCV MCH MCHC RDW Plt Count MPV Immature Gran % Neutrophils % Band Neutrophils % Lymphocytes % Atypical Lymphs % Monocytes % Eosinophils % Basophils % Metamyelocytes % Myelocytes % Promyelocytes % Other Cells % Nucleated RBC % Absolute Neutrophils Absolute Lymphocytes Absolute Monocytes Absolute Eosinophils Absolute Basophils RBC Morphology Polychromasia Hypochromasia Poikilocytosis Basophilic Stippling Anisocytosis Microcytosis Macrocytosis Spherocytes Tear Drop Cells Ovalocytes Stomatocytes [place] Bodies Busy Cells/Echinocytes Acanthocytes (Spur) Schistocytes Sodium 140 Potassium 5.3 H Chloride 105 Carbon Dioxide 34.6 H Anion Gap 0.4 L BUN 21 H Creatinine 1.5 H Estimated GFR/1.73 m2 34.23 Glucose 230 H Calcium 8.9 Magnesium Ur Random Sodium 109 Ur Random Potassium 16 03/21/22 03/21/22 03/21/22 09:02 09:03 10:15 WBC Cancelled RBC Cancelled Hgb Cancelled Hct Cancelled MCV Cancelled MCH Cancelled MCHC Cancelled RDW Cancelled Plt Count Cancelled MPV Cancelled Immature Gran % Cancelled Neutrophils % Cancelled Band Neutrophils % Cancelled Lymphocytes % Cancelled Atypical Lymphs % Cancelled Monocytes % Cancelled Eosinophils % Cancelled Basophils % Cancelled Metamyelocytes % Cancelled Myelocytes % Cancelled Promyelocytes % Cancelled Other Cells % Cancelled Nucleated RBC % Cancelled Absolute Neutrophils Cancelled Absolute Lymphocytes Cancelled Absolute Monocytes Cancelled Absolute Eosinophils Cancelled Absolute Basophils Cancelled RBC Morphology Cancelled Polychromasia Cancelled Hypochromasia Cancelled Poikilocytosis Cancelled Basophilic Stippling Cancelled Anisocytosis Cancelled Microcytosis Cancelled Macrocytosis Cancelled Spherocytes Cancelled Tear Drop Cells Cancelled Ovalocytes Cancelled Stomatocytes Cancelled [place] Bodies Cancelled Ti Cells/Echinocytes Cancelled Acanthocytes (Spur) Cancelled Schistocytes Cancelled Sodium Cancelled 141 Potassium Cancelled 4.6 Chloride Cancelled 103 Carbon Dioxide Cancelled 34.4 H Anion Gap Cancelled 3.6 BUN Cancelled 19 H Creatinine Cancelled 1.4 H Estimated GFR/1.73 m2 Cancelled 37.07 Glucose Cancelled 239 H Calcium Cancelled 9.0 Magnesium Cancelled 1.2 L Ur Random Sodium Ur Random Potassium 03/21/22 10:15 WBC 8.49 RBC 3.30 L Hgb 7.8 L Hct 28.1 L MCV 85 MCH 23.6 L MCHC 27.8 L RDW 17.7 H Plt Count 152 MPV 9.0 Immature Gran % 1.8 Neutrophils % 72.5 Band Neutrophils % Lymphocytes % 12.6 Atypical Lymphs % Monocytes % 7.2 Eosinophils % 5.4 Basophils % 0.5 Metamyelocytes % Myelocytes % Promyelocytes % Other Cells % Nucleated RBC % 0.0 Absolute Neutrophils 6.16 Absolute Lymphocytes 1.07 L Absolute Monocytes 0.61 Absolute Eosinophils 0.46 Absolute Basophils 0.04 RBC Morphology See Below Polychromasia Present Hypochromasia 1+ Poikilocytosis Basophilic Stippling Anisocytosis Microcytosis Macrocytosis Spherocytes Tear Drop Cells Ovalocytes Stomatocytes [place] Bodies Busy Cells/Echinocytes Acanthocytes (Spur) Schistocytes Sodium Potassium Chloride Carbon Dioxide Anion Gap BUN Creatinine Estimated GFR/1.73 m2 Glucose Calcium Magnesium Ur Random Sodium Ur Random Potassium
[2022-03-21] MEDS: Ferrous Sulfate 325 MG TAB PO ×2 (12:45→22:20)
--- NOTE | 2022-03-21 13:10 | PT.INNT ---
Date of service: 03/21/22 Time of Service: 13:10 PT Notes Visit Reasons: SANDY, Dizziness with Falls, Anemia 03/21/2022 Patient not available for PT session x2 this morning due to attempts to draw blood for labs, then refused x1 due to back and B foot pain and general unwell feelings. Patient refused afternoon PT session with similar sentiments. Will attempt to resume PT services tomorrow morning.
--- NOTE | 2022-03-21 13:29 | CMPROGNOTE_ITS ---
- If Service Date Differs Date of service: 03/21/22 Time of Service: 13:29 Care Management Progress Note S/O: Raven was lying in bed when CM met with her. She stated that she does not feel well today, and she had an uneventful weekend. Per RN, she refused PT this morning, and Raven stated that she is not feeling up to it today. CM contacted all facilities where referrals were sent, and there have not been any bed offers. [facility] stated that they do not have a bed currently, but that CM can follow up later this week, if she still requires rehab. CM left messages with [facility], [facility], [facility], and [facility]. [facility] declined her due to her insurance, which they do not accept. Per report, she is not medically cleared for discharge today. CM will continue to follow. A: Raven is a 72 year old female admitted to [facility] on 03/16/22 for SANDY, dizziness with falls, anemia. P: Raven will likely return home vs SNF when medically cleared. She will transport via private vehicle by family. She will follow up with her PCP and discharge plan of care. CM will continue to follow.
--- NOTE | 2022-03-21 16:38 | PCNE_ITS ---
Date of service: 03/21/22 Time of Service: 15:30 History of Present Illness Narrative: Ms. Carbajal is a 72 y/o F currently inpatient at [facility] 2/2 dehydration; PMHx sig for?morbid obesity, HLD, hepatitis C, colostomy, back pain, DM w/CKD, cognitive impairment; present today pt and pt perfume maker Rodolfo Patient preference to return home vs SNF. Would be willing to consider SNF pending location, open to consideration, however goal is to return home JOSSIE. Patient lives in [facility] with partner Rodolfo. Rodolfo performs all instrumental ADLs except for medication prep. Patient independent with ADLs at baseline, Bill provides assistance with colostomy bag changes. limited mobility at baseline, sleeping in chair able to self transfer with use of walker to commode, ambulation limited to this. Has electric wheelchair outside, does not get outside daily. Reports last fall a few months ago, however has had frequent falls at home. Has [facility] engaged [facility]hab, did not have it positive experience which is why preference to be home, feels that all rehabs are ganging up on her at this time and denying her. Reports history of engaging in HH, however did not feel that this was worth her time. Would be willing to engage in physical therapy if able to get slow at her pace and were engaging. PT while in hospital has been moving too fast, was not feeling well today which is why she refused PT, will consider tomorrow. Reports feels can safely return home, has equipment needs, Rodolfo feels patient is safe to return home as well. Had family social support around who may be able to provide additional caregiver support. Willing for [facility] health PT, OT for home safety assessment with STEAM ENGINEER assessment. Has recently updated advanced directive, healthcare agent listed Crystal is primary Whitney is secondary. Remains full code, however would consider DNR upon further conversations regarding successful resuscitation and long-term outcomes. Would only consider dialysis for a short time, ventilator support on short-t erm, no feeding tube, short-term IVF, would want to go to hospital Hospital course: presented to [facility] ED on 03/16/22 w/CC x3days dizziness w/fall; workup consistent w/dehydration; SANDY improving w/hydration; UTI tx w/ceftriaxone; met w/PC to f/u outpatient; plan initially for d/c to SNF, pt now preferring to be d/c'd home Assessment and Plan Assessment and plan (1) Palliative care patient: Assessment and plan: continue to follow through outpatient, HV to be scheduled at discharge (2) Chronic kidney disease: Status: Chronic Assessment and plan: pt would only want dialysis if short term, would not want dialysis indefinitely (3) SANDY (acute kidney injury): Status: Acute Assessment and plan: Bun and creat improving BUN 21/Creat 1.5 switch to PO fluids; continue to avoid nephrotoxic drugs and renally dose; follow labs closely Potassium 4.6 (4) Decreased activities of daily living (ADL): Status: Acute Assessment and plan: preference to return home at d/c, has enough family caregiver support at home, agreeable to [facility] referral at discharge, recommend RN/PT/OT/CLINICAL DATA ANALYST, w/OT home safety assessment for recommendations for grab bars etc and STEAM ENGINEER qualifications reviewed recommendation for SNF for appropriate rehabilitation to match pt goals and wishes to return home safely; pt agreeable to consider pending location of SNF accepted to (5) Depression: Status: Chronic Assessment and plan: continue to follow and reassess (6) Full code status: Status: Acute Assessment and plan: pt considering DNR status pending conversation r/t CPR success rates and outcomes continue to review and update PRN Review of Systems Constitutional Constitutional: Reports as per HPI PFSH All Active Problems Full code status (Acute) Pain (Acute) UTI (urinary tract infection) (Acute) Discharge planning issues (Acute) DVT prophylaxis (Acute) Fall (Acute) Anemia (Chronic) SANDY (acute kidney injury) (Acute) Hypomagnesemia (Acute) D-dimer, elevated (Acute) Decreased activities of daily living (ADL) (Acute) Mass of left ovary (Acute) Chronic kidney disease (Chronic) Essential hypertension (Acute) Diabetes mellitus type 2 (Chronic) On Metformin Back pain (Acute) Morbid obesity (Chronic) Hyperlipidemia (Chronic) 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 Leukocytosis. Intermittently febrile. Diverticulitis (Chronic) Recurrent. S/p high risk hemicolectomy in the setting of sepsis and hypotension 03/22/2013. Complication of a stomal leak resulting in an abdominal abscess. Readmitted to [facility] 05/03/13 emergently with sepsis syndrome and had an abdominal abscess drained. Completed rehab at [facility] with discharge most recently on after extensive dressing care of the abdominal wound with a wound VAC. Hepatitis C (Chronic) Recent negative viral count. Depression (Chronic) Vitamin D deficiency (Chronic) History of colostomy (Chronic) Medical History Anemia (05/03/13) Hemoglobin 8.2. Anemia Depression Diabetes mellitus Fall Gastroesophageal reflux disease GERD (gastroesophageal reflux disease) History of breast cancer History of hepatitis C History of incisional hernia History of renal failure Migraine Morbid obesity Osteopenia Palliative care patient Vitamin D deficiency Surgical History Colectomy H/O mastectomy Hernia Repair, Incisional x2 S/P cholecystectomy Family History Mother No problems noted. Father No problems noted. Social History Smoking/Tobacco Use Status: Former Tobacco Use Smoking risk assessment performed?: Yes Alcohol Intake: never Drug use: Never Substance use type: does not use Do you feel safe at home: Yes Do you feel safe in your relationship?: Yes Exam Const General: cooperative, comfortable and no acute distress Nutritional Appearance: obese Orientation: alert, awake and oriented x3 HENMT Head: normal to inspection, normocephalic and atraumatic Resp Effort & Inspection: normal respiratory effort, able to speak in complete sentences, no audible wheezes and no cough Other: clear pale yellow urine noted in catheter bag Skin General skin exam: no rashes or lesions noted Psych Speech and Movement: speech clear Attitude: cooperative and guarded Thought Process: impoverished Insight: limited Judgment: limited Results Last Vital Signs Temp 98.8 F 03/21/22 15:06 Pulse 88 03/21/22 15:06 Resp 19 03/21/22 15:06 BP 141/80 H 03/21/22 15:06 Pulse Ox 94 03/21/22 15:06 Labs Result diagrams: 03/21/22 10:15 03/21/22 10:15 Labs: Laboratory Results - last 24 hr 03/20/22 03/20/22 03/21/22 10:20 10:20 09:02 WBC Cancelled RBC Cancelled Hgb Cancelled Hct Cancelled MCV Cancelled MCH Cancelled MCHC Cancelled RDW Cancelled Plt Count Cancelled MPV Cancelled Immature Gran % Cancelled Neutrophils % Cancelled Band Neutrophils % Cancelled Lymphocytes % Cancelled Atypical Lymphs % Cancelled Monocytes % Cancelled Eosinophils % Cancelled Basophils % Cancelled Metamyelocytes % Cancelled Myelocytes % Cancelled Promyelocytes % Cancelled Other Cells % Cancelled Nucleated RBC % Cancelled Absolute Neutrophils Cancelled Absolute Lymphocytes Cancelled Absolute Monocytes Cancelled Absolute Eosinophils Cancelled Absolute Basophils Cancelled RBC Morphology Cancelled Polychromasia Cancelled Hypochromasia Cancelled Poikilocytosis Cancelled Basophilic Stippling Cancelled Anisocytosis Cancelled Microcytosis Cancelled Macrocytosis Cancelled Spherocytes Cancelled Tear Drop Cells Cancelled Ovalocytes Cancelled Stomatocytes Cancelled [place] Bodies Cancelled Ti Cells/Echinocytes Cancelled Acanthocytes (Spur) Cancelled Schistocytes Cancelled Sodium Potassium Chloride Carbon Dioxide Anion Gap BUN Creatinine Estimated GFR/1.73 m2 Glucose Calcium Magnesium Ur Random Sodium 109 Ur Random Potassium 16 03/21/22 03/21/22 03/21/22 09:03 10:15 10:15 WBC 8.49 RBC 3.30 L Hgb 7.8 L Hct 28.1 L MCV 85 MCH 23.6 L MCHC 27.8 L RDW 17.7 H Plt Count 152 MPV 9.0 Immature Gran % 1.8 Neutrophils % 72.5 Band Neutrophils % Lymphocytes % 12.6 Atypical Lymphs % Monocytes % 7.2 Eosinophils % 5.4 Basophils % 0.5 Metamyelocytes % Myelocytes % Promyelocytes % Other Cells % Nucleated RBC % 0.0 Absolute Neutrophils 6.16 Absolute Lymphocytes 1.07 L Absolute Monocytes 0.61 Absolute Eosinophils 0.46 Absolute Basophils 0.04 RBC Morphology See Below Polychromasia Present Hypochromasia 1+ Poikilocytosis Basophilic Stippling Anisocytosis Microcytosis Macrocytosis Spherocytes Tear Drop Cells Ovalocytes Stomatocytes [place] Bodies Ti Cells/Echinocytes Acanthocytes (Spur) Schistocytes Sodium Cancelled 141 Potassium Cancelled 4.6 Chloride Cancelled 103 Carbon Dioxide Cancelled 34.4 H Anion Gap Cancelled 3.6 BUN Cancelled 19 H Creatinine Cancelled 1.4 H Estimated GFR/1.73 m2 Cancelled 37.07 Glucose Cancelled 239 H Calcium Cancelled 9.0 Magnesium Cancelled 1.2 L Ur Random Sodium Ur Random Potassium
[2022-03-21] MEDS: Simvastatin 40 MG TAB PO (20:11)
[2022-03-21] MEDS: QUEtiapine 25 MG TAB 12.5 MG PO (20:12)
[2022-03-21] MEDS: Lidocaine 5% Patch 2 PATCH TP (22:19)
[2022-03-21] MEDS: traMADol 50 MG TAB 100 MG PO (22:20)
[2022-03-22 03:10] VITALS: BP 130/60; PULSE 85; RESP 22; TEMP 36.5; O2SAT 96
[2022-03-22] MEDS: Albuterol HFA 8 GM 60 PUFF INH IH ×2 (04:45→09:02)
[2022-03-22 07:11] LABS: Anion Gap 4.6 mmol/L (3-11); BUN 16 mg/dL (7-18); CO2 33.4 mmol/L (21.0-32.0); CREATININE 1.3 mg/dL (0.55-1.02); Calcium 9.1 mg/dL (8.5-10.1); Chloride 105 mmol/L (98-107); Estimated GFR 40.38 (mL/min/1.73m2); Glucose 151 mg/dL (74-106); Magnesium 1.1 mg/dL (1.8-2.4); Potassium 4.7 mmol/L (3.5-5.1); Sodium 143 mmol/L (136-145)
[2022-03-22 07:36] VITALS: BP 106/58; PULSE 78; RESP 20; TEMP 36.5; O2SAT 94
[2022-03-22 08:03] LABS: Abs Immature Grans 0.13 10^3/uL (0.0-0.06); Absolute Basophil Count 0.02 10^3/uL (0.0-0.2); Absolute Eosinophil Count 0.48 10^3/uL (0.0-0.7); Absolute Lymphocyte Count 1.35 10^3/uL (1.2-3.4); Absolute Monocyte Count 0.62 10^3/uL (0.1-0.8); Absolute Neutrophil Count 5.72 10^3/uL (1.2-6.7); Basophils % 0.2; Eosinophils % 5.8; HCT 30.1 % (36.0-46.0); HGB 8.5 g/dL (11.2-15.7); Immature Grans % 1.6; Lymphocytes % 16.2; MCH 23.6 pg (27.0-33.0); MCHC 28.2 % (32.0-36.0); MCV 84 fL (80-95); MPV 9.5 fL (8.0-11.0); Monocytes % 7.5; Neutrophils % 68.7; Platelet Count 165 10^3/uL (130-400); RDW 17.8 % (11.7-14.6); RDW-SD 53.2 fL; WBC 8.32 10^3/uL (4.4-10.8)
[2022-03-22] MEDS: Aspirin 81 MG CHEW PO (08:06)
[2022-03-22] MEDS: Calcium 600mg/Vit D 200U TAB 1 TAB PO (08:07)
[2022-03-22] MEDS: cefTRIAXone 1 GM/50 ML BAG IVPB (08:07)
[2022-03-22] MEDS: Cholecalciferol (Vitamin D3) 1,000 UNIT TAB 4000 UNITS PO (08:08)
[2022-03-22] MEDS: DULoxetine 30 MG CAP 60 MG PO ×2 (08:09→20:37)
[2022-03-22] MEDS: Insulin Aspart 300 UNITS/3 ML PEN SC ×4 (08:13→22:49)
[2022-03-22] MEDS: Magnesium Oxide 400 MG TAB PO ×2 (08:15→20:37)
[2022-03-22] MEDS: Normal Saline Flush 10 ML SYR IVP ×2 (08:16→09:44)
[2022-03-22] MEDS: Nystatin POWDER 60 GM JAR TP ×3 (08:17→20:38)
[2022-03-22] MEDS: Omeprazole 20 MG CAPCR 40 MG PO (08:17)
[2022-03-22] MEDS: Pregabalin 50 MG CAP 100 MG PO ×3 (08:18→20:37)
[2022-03-22] MEDS: Metoprolol 12.5 MG TAB PO ×2 (08:20→20:38)
[2022-03-22] MEDS: MAGNESIUM SULFATE 4 GM/100 ML BAG IVPB (09:43)
[2022-03-22] MEDS: Ferrous Sulfate 325 MG TAB PO ×2 (09:51→22:46)
[2022-03-22] MEDS: Patch Removal 2 EACH TP (09:59)
[2022-03-22 11:12] VITALS: BP 132/52; PULSE 91; RESP 18; TEMP 36.6; O2SAT 95
[2022-03-22] MEDS: Acetaminophen 325 MG TAB PO (11:46)
--- NOTE | 2022-03-22 11:54 | W.INDIABCONS ---
Date of service: 03/22/22 Time of Service: 11:55 Diabetes Inpatient Consult Reason for Visit: dm DESCRIPTION/ASSESSMENT: Met with Raven and her today to review diet recommendations for optimal glycemic management. Admitted with UTI with long standing hx of morbid obesity, CKD, HTN, DM2. Home DM meds: lispro 12-25 at meals, lantus 56 units BID, glipizide 5 mg qd. Most recent A1C: 8.4%. In view of comorbidities and age, A1C at goal (<8.5%). Current DM regime may be contributing to weight gain. Would recommend switching to Levemir and adding either or both Trulicity and Jardiance. INTERVENTION: Provided information on continuous glucose monitors as aid in managing DM- provided written materials to bring to her PCP after discharge. Encouraged Raven to make outpatient appt. with me for weight and DM management. PLAN: will be available prn Time Spent in Nutritional Counseling and Treatment: 20
[2022-03-22 12:48] VITALS: RESP 4; O2SAT 94
[2022-03-22] MEDS: Levalbuterol 1.25 MG/3 ML UPD VIAL UPD (12:48)
--- NOTE | 2022-03-22 13:14 | PGE_ITS ---
Date of Service Date of service: 03/22/22 Time of Service: 13:14 Assessment and Plan Assessment and plan (1) SANDY (acute kidney injury): Status: Acute Assessment and plan: Bun and creat improving BUN 16/Creat 1.3 will discontinue IV fluids avoid nephrotoxic drugs, renal dosing continue queen for accurate I&O follow labs closely Potassium 4.7 (2) Anemia: Status: Chronic Assessment and plan: iron deficient, replete check stool for OB - negative to date H&H up - iron 325 mg BID (3) Pain: Status: Acute Assessment and plan: Bilateral foot pain - chronic - oxycodone prn - Improved after tylenol, Lyrica 100 mg TID seems to be helping (4) Fall: Status: Acute Assessment and plan: physical therapy and Occupational Therapy consultation considering inpatient rehabilitation which is recommendation (5) D-dimer, elevated: Status: Acute Assessment and plan: of unknown significance and expected with multiple recent falls. No diff breathing, but some wheezing today - levalbuteral nebs, s/t tachycardia - will continue to monitor (6) Diabetes mellitus type 2: Status: Chronic Assessment and plan: Monitor with glucometer and short acting insulin coverage holding Lantus for now and other outpatient treatments. Watch for hypoglycemia. diabetic diet Glucose - this am 151 (7) UTI (urinary tract infection): Status: Resolved Assessment and plan: ID& sensitivity seerratia Marcescens. sensitive to ceftriaxone - discontinued today; course completed (8) DVT prophylaxis: Status: Acute Assessment and plan: full dose lovenox (9) Discharge planning issues: Status: Acute Assessment and plan: considering inpatient rehabilitation, referrals sent to [facility], jameel did a site visit - she liked it, there are currently no beds. She would also entertain the [facility]. anticipate medical discharge over next few days discussed with Dr Iqbal. Subjective Subjective Patient reports: no new complaints, tolerating a regular diet, bowel movement and afebrile; denies diarrhea, nausea, vomiting or fever Interval history since last seen: This morning Raven said she was going home. She was unable to get from the bed to the chair that was directly adjacent to the bed with max assist. We again discussed rehab and she agreed to the [place]. Care mgt will do a referral. Exam Const General: cooperative, comfortable and no acute distress Nutritional Appearance: obese Orientation: alert, awake and oriented x3 HENMT Head: normal to inspection, normocephalic and atraumatic Resp Effort & Inspection: normal respiratory effort, able to speak in complete sentences and no cough Auscultation: wheezes expiratory wheezes (throughout ) Other: clear pale yellow urine noted in catheter bag Skin General skin exam: no rashes or lesions noted Psych Speech and Movement: speech clear Attitude: cooperative and guarded Thought Process: impoverished Insight: limited Judgment: limited Objective Last Vital Signs Temp 36.6 C 03/22/22 11:12 Pulse 91 H 03/22/22 11:12 Resp 18 03/22/22 11:12 BP 132/52 L 03/22/22 11:12 Pulse Ox 94 03/22/22 12:48 Laboratory Results - last 24 hr 03/20/22 03/22/22 03/22/22 10:20 06:20 07:55 WBC 8.32 RBC 3.60 L Hgb 8.5 L Hct 30.1 L MCV 84 MCH 23.6 L MCHC 28.2 L RDW 17.8 H Plt Count 165 MPV 9.5 Immature Gran % 1.6 Neutrophils % 68.7 Lymphocytes % 16.2 Monocytes % 7.5 Eosinophils % 5.8 Basophils % 0.2 Nucleated RBC % 0.0 Absolute Neutrophils 5.72 Absolute Lymphocytes 1.35 Absolute Monocytes 0.62 Absolute Eosinophils 0.48 Absolute Basophils 0.02 Sodium 143 Potassium 4.7 Chloride 105 Carbon Dioxide 33.4 H Anion Gap 4.6 BUN 16 Creatinine 1.3 H Estimated GFR/1.73 m2 40.38 Glucose 151 H Calcium 9.1 Magnesium 1.1 L Urine Chloride 110
--- NOTE | 2022-03-22 14:11 | NUR.NOTE ---
Nursing Note: nurse present in the room with PT. Pt resistive to getting up, initially standing then sitting back down, repeatedly saying I can't do this. Pt's granddaughter and boyfriend present in the room. Pt taken off O2 for transfer. Pt eventually made it to chair, but needed assist x3 to sit up straight. Pt's O2 86%. 2L nasal cannula applied and pt recovered to 94% on 2L. Pt's granddaughter said she's worried about pt coming home and hurting herself or hurting granddaughter during transferring. Pt's granddaughter said she doesn't think she could physically help patient. Pt's boyfriend said that pt is not physically ready to come home.
--- NOTE | 2022-03-22 14:13 | CHAPLAIN ---
I had a short visit with Raven. She wasn't interested in further conversation. Raven will be here a week tomorrow. She hopes to go home, but according to Care Management notes would agree to a SNF if necessary.
[2022-03-22] MEDS: IRON SUCROSE COMPLEX 300 MG in Normal Saline 250 ML 167 MG IVPB (15:04)
--- NOTE | 2022-03-22 15:31 | PT.INTREAT ---
Date of service: 03/22/22 Time of Service: 11:32 PT Notes Visit Reasons: SANDY, Dizziness with Falls, Anemia Inpatient Physical Therapy Treatment Note [facility] Date: 03/22/2022 PRECAUTIONS: Activity as tolerated SUBJECTIVE: Raven is pleasant and agreeable to participating in PT. She reports that she is still not feeling well. She agrees that she will require rehab prior to returning to home to build her strength. OBJECTIVE: PAIN: Patient c/o R foot pain (per patient is chronic) at all times BED MOBILITY/TRANSFERS Supine-sit: SBA with HOB at 30 degrees Sit-supine: Min A of B LE with HOB flat Sit-stand: SBA Stand-sit: SBA GAIT Assistive Device: FWW Weight bearing: Full Assist: CGA Distance: 3 steps in a.m.; 4' in p.m. Deviation: SOB, max cueing for FWW management, increased fatigue ASSESSMENT: Patient tolerated session with c/o increased global fatigue and SOB with gait training, demonstrating limited activity tolerance. Recommend discharge to SNF-level rehab for global strengthening. PLAN: Continue with global strengthening and general conditioning for improved mobility and activity tolerance. TREATMENT CODE/TIME: Session 1: 30 minutes; 30272 x2 (11:32) Session 2: 10 minutes; [id number] (14:30)
[2022-03-22 15:32] VITALS: BP 141/69; PULSE 90; RESP 18; TEMP 36.5; O2SAT 93
--- NOTE | 2022-03-22 16:33 | PDOC.CMPRO ---
- If Service Date Differs Date of service: 03/22/22 Time of Service: 16:33 Care Management Progress Note S/O: Raven was sitting up in her chair when CM met with her. She reported that she is very tired today, and asked that she is moved back to her bed. CM reported that after following up with several facilities, there are no beds available currently. CM will continue to pursue short term rehab for Raven, which she is agreeable to. CM informed her HYDRAULIC MODELING ENGINEER that she would like to be moved to bed, who reported that PT will assist to get her back to bed as part of her afternoon therapy session. CM will continue to follow. A: Raven is a 72 year old female admitted to [facility] on 03/16/22 for SANDY, dizziness with falls, anemia. P: Raven will likely return home vs SNF when medically cleared. She will transport via private vehicle by family. She will follow up with her PCP and discharge plan of care. CM will continue to follow.
[2022-03-22 19:30] VITALS: BP 133/66; PULSE 96; RESP 18; TEMP 36.7; O2SAT 94
[2022-03-22] MEDS: QUEtiapine 25 MG TAB 12.5 MG PO (20:37)
[2022-03-22] MEDS: Simvastatin 40 MG TAB PO (20:38)
[2022-03-22] MEDS: traMADol 50 MG TAB 100 MG PO (22:46)
[2022-03-22] MEDS: Lidocaine 5% Patch 2 PATCH TP (22:50)
[2022-03-23] VITALS (8 sets, daily range): BP systolic 116–145; BP diastolic 62–87; PULSE 85–100; RESP 4–20; TEMP 36.5–36.7; O2SAT 92–99
[2022-03-23] MEDS: oxyCODONE 5 MG TAB PO ×2 (01:13→15:34)
[2022-03-23 06:39] LABS: Abs Immature Grans 0.29 10^3/uL (0.0-0.06); Absolute Basophil Count 0.06 10^3/uL (0.0-0.2); Absolute Eosinophil Count 0.58 10^3/uL (0.0-0.7); Absolute Lymphocyte Count 1.37 10^3/uL (1.2-3.4); Absolute Monocyte Count 0.71 10^3/uL (0.1-0.8); Absolute Neutrophil Count 6.61 10^3/uL (1.2-6.7); Basophils % 0.6; HCT 29.3 % (36.0-46.0); HGB 8.3 g/dL (11.2-15.7); Lymphocytes % 14.2; MCH 23.8 pg (27.0-33.0); MCHC 28.3 % (32.0-36.0); MCV 84 fL (80-95); MPV 9.8 fL (8.0-11.0); Monocytes % 7.4; Neutrophils % 68.8; Platelet Count 170 10^3/uL (130-400); RBC 3.49 10^6/uL (3.93-5.22); RDW-SD 53.3 fL; WBC 9.62 10^3/uL (4.4-10.8)
[2022-03-23 06:59] LABS: Anion Gap 4.3 mmol/L (3-11); BUN 16 mg/dL (7-18); CO2 34.7 mmol/L (21.0-32.0); CREATININE 1.2 mg/dL (0.55-1.02); Calcium 9.1 mg/dL (8.5-10.1); Chloride 103 mmol/L (98-107); Estimated GFR 44.29 (mL/min/1.73m2); Glucose 164 mg/dL (74-106); Magnesium 1.6 mg/dL (1.8-2.4); Potassium 4.8 mmol/L (3.5-5.1); Sodium 142 mmol/L (136-145)
[2022-03-23] MEDS: Cholecalciferol (Vitamin D3) 1,000 UNIT TAB 4000 UNITS PO (08:04)
[2022-03-23] MEDS: Aspirin 81 MG CHEW PO (08:04)
[2022-03-23] MEDS: Calcium 600mg/Vit D 200U TAB 1 TAB PO (08:04)
[2022-03-23] MEDS: DULoxetine 30 MG CAP 60 MG PO ×2 (08:05→20:12)
[2022-03-23] MEDS: Acetaminophen 325 MG TAB PO ×2 (08:07→12:04)
[2022-03-23] MEDS: Insulin Aspart 300 UNITS/3 ML PEN SC ×4 (08:08→22:33)
[2022-03-23] MEDS: Normal Saline Flush 10 ML SYR IVP (08:09)
[2022-03-23] MEDS: Magnesium Oxide 400 MG TAB PO ×2 (08:10→20:12)
[2022-03-23] MEDS: Metoprolol 12.5 MG TAB PO ×2 (08:10→20:12)
[2022-03-23] MEDS: Pregabalin 50 MG CAP 100 MG PO ×3 (08:10→20:12)
[2022-03-23] MEDS: Nystatin POWDER 60 GM JAR TP ×3 (08:10→20:13)
[2022-03-23] MEDS: Omeprazole 20 MG CAPCR 40 MG PO (08:10)
--- NOTE | 2022-03-23 08:37 | DI.RAD_ITS ---
Exam(s) XR ANKLE RT COMPLETE EXAM: XR ANKLE RT COMPLETE CLINICAL HISTORY: S/P fall - pain (surgical repair yrs ago) TECHNIQUE: COMPARISON: CR XR ANKLE RT COMPLETE from 09/14/2018 FINDINGS: Three views were obtained and show previously described fixation screws of the distal tibia. Ankle m ortise appears well maintained. There is no evidence of acute fracture or dislocation. There are mi ld degenerative changes of the tibiotalar and talofibular joints. IMPRESSION: RADIATION DOSE DELIVERED: Total DLP
[2022-03-23] MEDS: Levalbuterol 1.25 MG/3 ML UPD VIAL UPD ×3 (10:18→22:40)
[2022-03-23] MEDS: Ferrous Sulfate 325 MG TAB PO ×2 (10:18→22:33)
[2022-03-23] MEDS: Patch Removal 2 EACH TP (10:21)
--- NOTE | 2022-03-23 13:54 | W.PM.PROGNOT ---
Date of Service Date of service: 03/23/22 Time of Service: 13:54 Assessment and Plan Assessment and plan (1) SANDY (acute kidney injury): Status: Acute Assessment and plan: Bun and creat improving BUN 16/Creat 1.2 avoid nephrotoxic drugs, renal dosing continue queen for accurate I&O follow labs closely Potassium 4.8 - (2) Anemia: Status: Chronic Assessment and plan: iron deficient, replete check stool for OB - negative to date H&H 04/11 continuing iron 325 mg BID (3) Pain: Status: Acute Assessment and plan: Bilateral foot pain - chronic - oxycodone prn - Improved after tylenol, Lyrica 100 mg TID seems to be helping (4) Fall: Status: Acute Assessment and plan: physical therapy and occupational therapy consultation considering inpatient rehabilitation which is recommendation, accepted @ [facility], will go [place] w03/25 ar 11:00 am (5) D-dimer, elevated: Status: Acute Assessment and plan: of unknown significance and expected with multiple recent falls. No diff breathing, but some wheezing today - levalbuteral nebs, s/t tachycardia - will continue to monitor (6) Diabetes mellitus type 2: Status: Chronic Assessment and plan: Monitor with glucometer and short acting insulin coverage holding Lantus for now and other outpatient treatments. Watch for hypoglycemia. diabetic diet Glucose - 164 this am (7) UTI (urinary tract infection): Status: Resolved Assessment and plan: ID& sensitivity seerratia Marcescens. sensitive to ceftriaxone -course completed (8) DVT prophylaxis: Status: Acute Assessment and plan: full dose lovenox (9) Discharge planning issues: Status: Acute Assessment and plan: considering inpatient rehabilitation, referrals sent to [facility], daughter did a site visit - she liked it, there are currently no beds. She would also entertain the [employer]. anticipate medical discharge over next few days discussed with Dr Iqbal. Subjective Subjective Patient reports: no new complaints, feels better and tolerating a regular diet; denies diarrhea, nausea, vomiting or fever Exam Const General: cooperative, comfortable and no acute distress Nutritional Appearance: obese Orientation: alert, awake and oriented x3 HENMT Head: normal to inspection, normocephalic and atraumatic Resp Effort & Inspection: normal respiratory effort, able to speak in complete sentences and no cough Auscultation: wheezes expiratory wheezes (throughout ) Other: clear pale yellow urine noted in catheter bag Skin General skin exam: no rashes or lesions noted Psych Speech and Movement: speech clear Attitude: cooperative and guarded Thought Process: impoverished Insight: limited Judgment: limited Objective Last Vital Signs Temp 36.7 C 03/23/22 11:42 Pulse 87 03/23/22 11:42 Resp 20 03/23/22 11:42 BP 116/62 03/23/22 11:42 Pulse Ox 92 03/23/22 11:42 Laboratory Results - last 24 hr 03/23/22 03/23/22 06:25 06:25 WBC 9.62 RBC 3.49 L Hgb 8.3 L Hct 29.3 L MCV 84 MCH 23.8 L MCHC 28.3 L RDW 18.0 H Plt Count 170 MPV 9.8 Immature Gran % 3.0 Neutrophils % 68.8 Lymphocytes % 14.2 Monocytes % 7.4 Eosinophils % 6.0 Basophils % 0.6 Nucleated RBC % 0.0 Absolute Neutrophils 6.61 Absolute Lymphocytes 1.37 Absolute Monocytes 0.71 Absolute Eosinophils 0.58 Absolute Basophils 0.06 Sodium 142 Potassium 4.8 Chloride 103 Carbon Dioxide 34.7 H Anion Gap 4.3 BUN 16 Creatinine 1.2 H Estimated GFR/1.73 m2 44.29 Glucose 164 H Calcium 9.1 Magnesium 1.6 L
--- NOTE | 2022-03-23 14:03 | PTTR_ITS ---
Date of service: 03/23/22 Time of Service: 14:03 PT Notes Visit Reasons: SANDY, Dizziness with Falls, Anemia Inpatient Physical Therapy Treatment Note [facility] Date: 03/23/2022 PRECAUTIONS: Repeated falls. Low endurance, needs frequent rests. Activity as tolerated. SUBJECTIVE: Agreeable to trying out short distance walking when her brace was fixed and a trial of post-op shoes on B feet was done. She reports pain and significant tenderness in the R foot at 02/20. KHRIS Coombs confirmed that the x-ray of ankle and foot from yesterday showed no fracture nor dislocation and that the hardware from 30 years back are intact and are in place. OBJECTIVE: ? ? ? General observation: Wwelling on top of R foot. Slipper sock over brace.? PAIN: 6-02/20 in R foot and ankle ? BED MOBILITY/TRANSFERS? Sit-stand: stand by assist ? Stand-sit: stand by assist ? GAIT? Assistive Device: FWW, R ankle brace inside post op shoe, post op shoe on L to balance leg length? Weight bearing: Full Assist: contact guard assist ? Distance:? 8 small steps for the first try, 10 bigger steps after a few minutes of rest for the morning session; 10 steps in the afternoon? Deviation: Complains of less pain with use of brace + post op shoe. Needed cueing to lean to opposite side to enable better limb advancement of the limb on the other side. Required cueing not to propel FWW too far from self to allow maximum support and effective weight bearing through B UE. Gait wide-based. ASSESSMENT: Fearfulness of falling and R ankle/foot pain limiting motivation to participate in therapy. Needs premedication for pain. Readjusted R ankle/foot brace to allow for maximum support. Provided post op shoe to R that will allow brace to optimally work. Another post op shoe on the L given as well that will equalize leg length and improve efficiency of walking while decreasing pain. PLAN: Progress strength, balance, and mobility level as tolerated. Premedicate for pain. DISCHARGE RECOMMENDATIONS: [] Home with no services [] [] Home with services [specify] [] Home with outpatient PT [] [X] SNF for continued rehabilitation. Patient will benefit from care home facility placement for continued skilled physical therapy services in order to progress mobility level, strength, and balance in preparation for a safe discharge to home. [] [facility] [] [] SNF versus LTC based on ability to participate and progress [] TREATMENT CODE/TIME: Session 1-- [id number] x 51 minutes beginning at 10:36 AM ? Session 2-- [id number] x 21 minutes beginning at 14:03 PM
--- NOTE | 2022-03-23 15:43 | PDOC.CMPRO ---
- If Service Date Differs Date of service: 03/23/22 Time of Service: 15:43 Care Management Progress Note S/O: Raven was resting today when CM attempted to meet with her. Per report, she walked with PT, and PT was planning another session this afternoon. CM talked to Dina, admissions at the [facility] in [place] today, who stated that they are reviewing her referral, and would like to meet Raven prior to providing a decision about admission. There are limited short term rehab beds currently. CM has called and followed up on all referrals, no bed offers have been made. CM will continue to follow. A: Raven is a 72 year old female admitted to [facility] on 03/16/22 for SANDY, dizziness with falls, anemia. P: Raven will likely return home vs SNF when medically cleared. She will transport via private vehicle by family. She will follow up with her PCP and discharge plan of care. CM will continue to follow.
[2022-03-23] MEDS: Simvastatin 40 MG TAB PO (20:12)
[2022-03-23] MEDS: Lidocaine 5% Patch 2 PATCH TP (22:33)
[2022-03-23] MEDS: traMADol 50 MG TAB 100 MG PO (22:33)
[2022-03-24 03:34] VITALS: BP 135/65; PULSE 93; RESP 17; TEMP 37; O2SAT 97
[2022-03-24 07:03] LABS: HCT 29.1 % (36.0-46.0); HGB 8.3 g/dL (11.2-15.7); MCH 24.3 pg (27.0-33.0); MCHC 28.5 % (32.0-36.0); MCV 85 fL (80-95); MPV 9.7 fL (8.0-11.0); Platelet Count 169 10^3/uL (130-400); RBC 3.41 10^6/uL (3.93-5.22); RDW 18.5 % (11.7-14.6); RDW-SD 55.8 fL; WBC 10.21 10^3/uL (4.4-10.8)
[2022-03-24 07:43] VITALS: BP 144/72; PULSE 98; RESP 20; TEMP 36.8; O2SAT 95
[2022-03-24 08:21] LABS: BUN 16 mg/dL (7-18); CREATININE 1.2 mg/dL (0.55-1.02); Calcium 8.8 mg/dL (8.5-10.1); Chloride 102 mmol/L (98-107); Estimated GFR 44.29 (mL/min/1.73m2); Glucose 176 mg/dL (74-106); Magnesium 1.3 mg/dL (1.8-2.4); Potassium 4.9 mmol/L (3.5-5.1); Sodium 142 mmol/L (136-145)
[2022-03-24] MEDS: Normal Saline Flush 10 ML SYR IVP ×2 (08:56→22:02)
[2022-03-24] MEDS: Metoprolol 12.5 MG TAB PO ×2 (08:57→19:51)
[2022-03-24] MEDS: Cholecalciferol (Vitamin D3) 1,000 UNIT TAB 4000 UNITS PO (08:57)
[2022-03-24] MEDS: Aspirin 81 MG CHEW PO (08:57)
[2022-03-24] MEDS: Pregabalin 50 MG CAP 100 MG PO ×3 (08:57→19:51)
[2022-03-24] MEDS: Omeprazole 20 MG CAPCR 40 MG PO (08:57)
[2022-03-24] MEDS: Insulin Aspart 300 UNITS/3 ML PEN SC ×4 (08:58→22:21)
[2022-03-24] MEDS: DULoxetine 30 MG CAP 60 MG PO ×2 (08:58→19:51)
[2022-03-24] MEDS: Calcium 600mg/Vit D 200U TAB 1 TAB PO (08:58)
[2022-03-24] MEDS: Magnesium Oxide 400 MG TAB PO ×2 (08:58→19:51)
[2022-03-24] MEDS: Nystatin POWDER 60 GM JAR TP ×3 (08:59→19:52)
[2022-03-24] MEDS: Normal Saline 500 ML 50 ML IV (09:25)
[2022-03-24] MEDS: MAGNESIUM SULFATE 2 GM/50 ML BAG IVPB (09:27)
[2022-03-24] MEDS: oxyCODONE 5 MG TAB PO ×3 (09:30→22:21)
[2022-03-24] MEDS: Ferrous Sulfate 325 MG TAB PO ×2 (10:30→22:02)
[2022-03-24] MEDS: Patch Removal 2 EACH TP (10:30)
--- NOTE | 2022-03-24 11:28 | PHACLINREV_ITS ---
Pharmacy Admission Review - Admission Clinical Review (Last Reviewed 03/21/22 @ 16:51 by Yelena Barreto NP) Full code status (Acute) Pain (Acute) Discharge planning issues (Acute) DVT prophylaxis (Acute) Fall (Acute) SANDY (acute kidney injury) (Acute) Hypomagnesemia (Acute) D-dimer, elevated (Acute) Decreased activities of daily living (ADL) (Acute) Essential hypertension (Acute) epinephrine Allergy (Severe, Unverified 03/16/22 18:02) chest pain/heart attack Penicillins Allergy (Intermediate, Unverified 03/16/22 18:02) rsh fever banana [Banana] Allergy (Unverified 03/16/22 18:02) NSAIDS (Non-Steroidal Anti-Inflamma Allergy (Unverified 03/16/22 18:02) unkown Sulfa (Sulfonamide Antibiotics) Allergy (Unverified 03/16/22 18:02) rash,fever Tetracyclines Allergy (Unverified 03/16/22 18:02) rash fever sodium polystyrene sulfonate [From Kayexalate] Adverse Reaction (Severe, Unverified 03/16/22 18:02) tachy/dyspnea/rash Niacin Preparations Adverse Reaction (Intermediate, Unverified 03/16/22 18:02) flushing Resuscitation Status Full Code Height 5 ft Weight 143.9 kg - Comments Comments/Follow Ups: pending placement to a SNF - Renal Dosing Renal Dosing: BUN 16 mg/dL (7-18) 03/24/22 06:33 Creatinine 1.2 mg/dL (0.55-1.02) H 03/24/22 06:33 Medications needing adjustments: Reviewed List of meds needing interventions: eCrCl 57.55 ml/min - Anticoagulation Anticoagulation: Hgb 8.3 g/dL (11.2-15.7) L 03/24/22 06:33 Hct 29.1 % (36.0-46.0) L 03/24/22 06:33 Plt Count 169 10^3/uL (130-400) 03/24/22 06:33 Creatinine 1.2 mg/dL (0.55-1.02) H 03/24/22 06:33 DVT Prophylaxis: Reviewed Medications: Enoxaparin Therapeutic Anticoagulation: Reviewed Medications: Enoxaparin - Opiate Usage Evaluate Pain Scale/Pains Meds: Reviewed Scheduled Bowel Reg ordered if on Opiates?: No (PRN ORDERS) - Relevant Labs Sodium 142 mmol/L (136-145) 03/24/22 06:33 Potassium 4.9 mmol/L (3.5-5.1) 03/24/22 06:33 Chloride 102 mmol/L (98-107) 03/24/22 06:33 Magnesium 1.3 mg/dL (1.8-2.4) L 03/24/22 06:33 Electrolytes, C-Reactive P, ESR: Intervened (added daily lokelma to active orders, was on home med list from PCP) - DM Control DM Control: Glucose 176 mg/dL (74-106) H 03/24/22 06:33 Hemoglobin A1c 6.9 % (<5.7) H 03/17/22 06:21 Finger Stick Blood Glucose 184 Finger Stick Blood Glucose 184 Finger Stick Blood Glucose 184 Insulin Dosing: Intervened (made sure MD aware of BID glargine dosing on home med list, aspart per SS ordered, will continue to monitor) - Heart Failure/UT Heart Failure/UT: Troponin I < 50 ng/L (<or=60) 03/16/22 20:15 EF%, MIRNA's, B-Blockers, Diuretics: Reviewed - BP Control BP Control: Blood Pressure 144/72 Blood Pressure 135/65 Blood Pressure 129/76 If elevated: Reviewed - Qtc Review If Elevated: Reviewed - IV to PO Switch IV Medications: Reviewed - Home Meds Home Med List reviewed: Intervened Relevent Home Meds Not ordered & why?: updated per home med list from PCP at [facility]; not ordered: glipizide, lantus, lisinopril - Current meds Current Medication Order Review: Reviewed
[2022-03-24 11:39] VITALS: BP 141/62; PULSE 87; RESP 20; TEMP 35.9; O2SAT 96
--- NOTE | 2022-03-24 12:22 | PDOC.CMPRO ---
- If Service Date Differs Date of service: 03/24/22 Time of Service: 12:23 Care Management Progress Note S/O: Raven was sitting up in her chair, getting ready to work with PT when CM met with her. She reported that she is doing ok today. CM received a bed offer from the [facility] today, after CM requested that they review her referral. The [facility] submitted a PA to her insurance for her STR stay today, and plans to accept her tomorrow, 03/25/22 at 11am, pending approval. CM set up RCT w/c van for 11 am tomorrow. Raven is agreeable to this plan. CM will continue to follow. A: Raven is a 72 year old female admitted to [facility] on 03/16/22 for SANDY, dizziness with falls, anemia. P: Raven will likely return home vs SNF when medically cleared. She will transport via private vehicle by family. She will follow up with her PCP and discharge plan of care. CM will continue to follow.
--- NOTE | 2022-03-24 14:41 | PT.INTREAT ---
Date of service: 03/24/22 Time of Service: 08:52 PT Notes Visit Reasons: SANDY, Dizziness with Falls, Anemia Inpatient Physical Therapy Treatment Note [facility] Date: 03/24/2022 PRECAUTIONS: Fall, Activity as tolerated SUBJECTIVE: Raven reports that she is still not feeling well, she reports fatigue. She is agreeable to getting up to the chair. OBJECTIVE: B post-op shoes and ankle stabilizer on with all weight bearing PAIN: Patient c/o severe R dorsal foot pain with pressure and gait training BED MOBILITY/TRANSFERS Sit-stand: CGA x2 Stand-sit: CGA x2 Bed-chair: CGA x2 GAIT Assistive Device: Bariatric FWW Weight bearing: Full Assist: CGA x2 Distance: 4' in a.m.; 6 steps x3 in p.m. Deviation: Moderate SOB, increased fatigue, wide DIPESH; seated rest x3 THEREX: Patient was instructed in a seated LE strengthening program, to include: ankle pumps, heel raises, LAQ, hip flexion and hip abduction. ASSESSMENT: Patient tolerated session with c/o increased fatigue and with SOB with all activity. She requires frequent rest with gait training due to significant R dorsal foot pain. Patient will require continued skilled PT intervention, as she is not safe to return to home at this time. PLAN: Continue with global strengthening and general conditioning for improved mobility, as well as gait and transfer training. TREATMENT CODE/TIME: Session 1: 15 minutes; 09289 (08:52) Session 2: 25 minutes; [id number], [id number] (13:03)
[2022-03-24] MEDS: Sodium Zirconium Cyclosilicate 10 GM PKT PO (14:59)
[2022-03-24 15:41] VITALS: BP 128/84; PULSE 91; RESP 20; TEMP 36.8; O2SAT 99
--- NOTE | 2022-03-24 15:44 | W.PM.PROGNOT ---
Date of Service Date of service: 03/24/22 Time of Service: 15:44 Assessment and Plan Assessment and plan (1) SANDY (acute kidney injury): Status: Acute Assessment and plan: Bun and creat improving BUN 16/Creat 1.2 avoid nephrotoxic drugs, renal dosing continue queen for accurate I&O follow labs closely Potassium 4.9 Pharmacy informed today that she takes Lokelma everyday at home - this was not evident on her med rec on admission and pharmacy did not recogize this until today - Lokelma daily added to her meds, this will help with her fluctuating potassium (2) Anemia: Status: Chronic Assessment and plan: iron deficient, replete check stool for OB - negative to date H&H 04/11 continuing iron 325 mg BID Verofer 500 mg IV (3) Pain: Status: Acute Assessment and plan: Bilateral foot pain - chronic - oxycodone prn - Improved after tylenol, Lyrica 100 mg TID seems to be helping (4) Fall: Status: Acute Assessment and plan: physical therapy and occupational therapy consultation will consider rehab (5) D-dimer, elevated: Status: Acute Assessment and plan: of unknown significance and expected with multiple recent falls. No diff breathing, but some wheezing today - levalbuteral nebs, s/t tachycardia - will continue to monitor (6) Diabetes mellitus type 2: Status: Chronic Assessment and plan: Monitor with glucometer and short acting insulin coverage holding Lantus for now and other outpatient treatments. Watch for hypoglycemia. diabetic diet Glucose - 176 this am (7) UTI (urinary tract infection): Status: Resolved Assessment and plan: ID& sensitivity seerratia Marcescens. sensitive to ceftriaxone -course completed (8) DVT prophylaxis: Status: Acute Assessment and plan: full dose lovenox (9) Discharge planning issues: Status: Acute Assessment and plan: considering inpatient rehabilitation, referrals sent to [facility], [facility] did a site visit - she liked it, there are currently no beds. She would also entertain the [facility]. The [facility] did accept her today and she will be discharged tomorrow am via [facility] van. anticipate medical discharge over next few days discussed with Dr Iqbal. Subjective Subjective Patient reports: no new complaints, feels better, pain is less, tolerating a regular diet and bowel movement; denies flatus, diarrhea, nausea, vomiting, shortness of breath (does have some exp wheezes) or fever Exam Const General: cooperative, comfortable and no acute distress Nutritional Appearance: obese Orientation: alert, awake and oriented x3 HENMT Head: normal to inspection, normocephalic and atraumatic Resp Effort & Inspection: normal respiratory effort, able to speak in complete sentences and no cough Auscultation: wheezes expiratory wheezes (throughout ) Other: clear pale yellow urine noted in catheter bag Skin General skin exam: no rashes or lesions noted Psych Speech and Movement: speech clear Attitude: cooperative and guarded Thought Process: impoverished Insight: limited Judgment: limited Objective Last Vital Signs Temp 36.8 C 03/24/22 15:41 Pulse 91 H 03/24/22 15:41 Resp 20 03/24/22 15:41 BP 128/84 03/24/22 15:41 Pulse Ox 99 03/24/22 15:41 Laboratory Results - last 24 hr 03/24/22 03/24/22 06:33 06:33 WBC 10.21 RBC 3.41 L Hgb 8.3 L Hct 29.1 L MCV 85 MCH 24.3 L MCHC 28.5 L RDW 18.5 H Plt Count 169 MPV 9.7 Sodium 142 Potassium 4.9 Chloride 102 Carbon Dioxide 36.0 H Anion Gap 4.0 BUN 16 Creatinine 1.2 H Estimated GFR/1.73 m2 44.29 Glucose 176 H Calcium 8.8 Magnesium 1.3 L
[2022-03-24] MEDS: Acetaminophen 325 MG TAB PO (16:32)
[2022-03-24 19:40] VITALS: BP 121/67; PULSE 92; RESP 20; TEMP 36; O2SAT 95
[2022-03-24] MEDS: QUEtiapine 25 MG TAB 12.5 MG PO (19:51)
[2022-03-24] MEDS: Simvastatin 40 MG TAB PO (19:51)
--- NOTE | 2022-03-24 19:52 | W.PM.DS.N ---
Date of service: 03/25/22 Time of Service: 10:00 DS: Diagnosis Discharge Diagnosis (1) SANDY (acute kidney injury): Status: Acute (2) Anemia: Status: Chronic (3) Pain: Status: Acute (4) Fall: Status: Acute (5) D-dimer, elevated: Status: Acute (6) Diabetes mellitus type 2: Status: Chronic (7) UTI (urinary tract infection): Status: Resolved (8) DVT prophylaxis: Status: Acute (9) Discharge planning issues: Status: Acute Discharge Plan Disposition Patient Disposition: SNF (LEVEL 1) [facility] Condition: Serious Discharge Details Reason For Visit: SANDY, Dizziness with Falls, Anemia Admit Date/Time: 03/16/22 21:13 Admit Provider: Angel Luis Sorto Attending Provider: Angel Luis Sorto Primary Care Provider: Mary Ann Luo Hospital Course Hospital Course: This is a 72-year-old patient with a past medical history of diabetes, hyperkalemia, hypertension, morbid obesity, diverticulitis, and depression who is a full code and lives at home. Shine presented to the [facility] Emergency department 03/16/2022 with the complaint of recent increased weakness and a fall at home. She had no obvious injury but appeared to be dehydrated.? She also appeared to be more anemic from her baseline with a drop in her hemoglobin 2 g/dL from 10-8.? She had no reported problems with her diabetes but is on a high dose of Lantus twice daily by review of her outpatient medication reconciliation. Urinalysis was unrevealing and did not appear to have any acute infectious process. She was admitted for IV hydration. She does have a caregiver at home. Her potassium remained high during hospitalization, it was not found out until late that she does take lokelma daily at home. Her potassium did normalize. She did have low iron, chronic anemia and received 3 infusions and will continue oral iro on discharge. She was unwilling to work with PT here because her ankle hurt. We did do an xray to rule out injury from when she fell, there has been previous trauma and hardware, there are no acute changes. We fitted her for an air cast and added a cast shoe and she felt much more comfortable and did get up and participate with PT. Her baseline is poor and she knows she has a lot of work to do. She is being discharged to the [facility] for rehab. Her goal is to ultmately go home. Home Meds and New Rx's Prescriptions: New lidocaine 5 % Adhesive Patch,Medicated 2 patch topical HS Qty: 0 0RF ferrous sulfate 325 mg (65 mg iron) Tablet 325 mg PO BID@1000,2200 Qty: 0 0RF polyethylene glycol 3350 17 gram Powder In Packet 17 g PO DAILY PRN PRN (Reason: Constipation) Qty: 0 0RF Continued simvastatin [Zocor] 40 MG tablet 40 mg PO HS calcium carbonate-vitamin D3 [Calcium 600 + D(3)] 1 EACH tablet 1 ea PO DAILY quetiapine 25 mg Tablet 12.5 mg PO QPM Qty: 15 0RF magnesium oxide 400 mg magnesium Tablet 400 mg PO BID Qty: 60 0RF lisinopril 10 mg tablet 10 mg PO DAILY tramadol 50 mg Tablet 100 mg PO QHS nystatin 100,000 unit/gram cream 1 applic TOPICAL TID lidocaine 5 % Adhesive Patch,Medicated 1 patch TOPICAL DAILY Rx Instructions: leave on most painful area for up to 12 hrs aspirin 81 mg Tablet,Chewable 81 mg PO DAILY Lokelma 10 gram powder in packet 10 g PO DAILY Label Comments: TAKE 10 GRAMS (1 PACKET) ORALLY DAILY BEFORE BREAKFAST Rx Instructions: BEFORE BREAKFAST insulin glargine [Lantus Solostar U-100 Insulin] 100 unit/mL (3 mL) insulin pen 56 unit SUBCUT BID Label Comments: INJECT 56 UNITS SUBCUTANEOUSLY TWO TIMES A DAY- Once in the am and once in the pm albuterol sulfate [Ventolin HFA] 90 mcg/actuation Hfa Aerosol Inhaler 2 puff INHALATION Q4H cholecalciferol (vitamin D3) 50 mcg (2,000 unit) tablet 4,000 unit PO DAILY Label Comments: TAKE TWO TABLETS BY MOUTH EVERY DAY duloxetine 60 mg capsule,delayed release(DR/EC) 60 mg PO BID Label Comments: TAKE ONE CAPSULE BY MOUTH TWICE A DAY glipizide 5 mg tablet 10 mg PO BID Label Comments: TAKE TWO TABLETS BY MOUTH TWICE A DAY omeprazole 40 mg capsule,delayed release(DR/EC) 40 mg PO DAILY Label Comments: TAKE ONE CAPSULE BY MOUTH EVERY DAY pregabalin 50 mg capsule 50 mg PO TID Label Comments: TAKE ONE CAPSULE BY MOUTH THREE TIMES A DAY metoprolol succinate 25 mg Tablet Extended Release 24 Hr 25 mg PO DAILY Qty: 30 0RF Discontinued insulin lispro [Humalog KwikPen Insulin] 100 unit/mL Insulin Pen 12 - 25 unit SUBCUT TID Rx Instructions: sliding scale Discharge Instructions Instructions: Fall Prevention for Older Adults (DC), Hyperkalemia (DC) Activity:: Activity as Tolerated Equipment/Supplies:: Walker Diet:: Carb Counting DS: Summary Time Spent with Patient providing and/or coordinating discharge services: Greater than 30 minutes Status at Discharge Functional status at discharge: uses cane/walker Overall status at discharge: patient is progressing back to baseline Mental Status: mental status grossly normal Speech and Movement: speech clear Mood: congruent mood Affect: normal affect Exam Const General: cooperative, comfortable and no acute distress Nutritional Appearance: obese Orientation: alert, awake and oriented x3 HENMT Head: normal to inspection, normocephalic and atraumatic Resp Effort & Inspection: normal respiratory effort, able to speak in complete sentences and no cough Auscultation: wheezes expiratory wheezes (throughout ) Other: clear pale yellow urine noted in catheter bag Skin General skin exam: no rashes or lesions noted Psych Mental Status: mental status grossly normal Speech and Movement: speech clear Mood: congruent mood Affect: normal affect Attitude: cooperative and guarded Thought Process: impoverished Insight: limited Judgment: limited DS: Data Vitals/I&O Vitals and I&O: Vital Signs Temperature 36.8 C 03/24/22 15:41 Temperature Source Tympanic 03/24/22 15:41 Pulse 91 H 03/24/22 15:41 Pulse Rhythm Regular 03/24/22 16:24 Pulse 98 H 03/16/22 21:31 Respiratory Rate 20 03/24/22 15:41 Respiratory Effort Non-Labored 03/24/22 16:24 Respiratory Depth Normal 03/24/22 16:24 Respiratory Pattern Normal 03/24/22 16:24 Blood Pressure 128/84 03/24/22 15:41 Blood Pressure Mean 69 03/16/22 21:31 Blood Pressure Position Sitting 03/16/22 17:58 Pulse Oximetry 99 03/24/22 15:41 Oxygen Delivery Method Nasal Cannula 03/24/22 15:41 Oxygen Flow Rate 1 03/24/22 15:41 Pain Level 3 03/24/22 17:32 Comment 03/17/22 09:04 Intake & Output 03/23/22 03/24/22 03/24/22 23:59 11:59 23:59 Intake Total 240 / 240 780.833 / 1550.833 770 / 1550.833 Output Total 1250 / 1950 650 / 1350 700 / 1350 Balance -1010 / -1710 130.833 / 200.833 70 / 200.833 Weight 143.9 kg Intake: IV 60.833 / 110.833 50 / 110.833 Oral 240 / 240 720 / 1440 720 / 1440 Output: Urine 1000 / 1700 650 / 1050 400 / 1050 Stool 250 / 250 300 / 300 Other: Urine Color Yellow Yellow Yellow Urine Appearance Clear Clear Clear Urine Odor Normal Stool Occult Blood Negative Stool Characteristics Soft Voiding Methods Indwelling Catheter Data Completed and Pending Labs on day of discharge: Labs from last 24 hours 03/24/22 03/24/22 06:33 06:33 WBC 10.21 RBC 3.41 L Hgb 8.3 L Hct 29.1 L MCV 85 MCH 24.3 L MCHC 28.5 L RDW 18.5 H Plt Count 169 MPV 9.7 Sodium 142 Potassium 4.9 Chloride 102 Carbon Dioxide 36.0 H Anion Gap 4.0 BUN 16 Creatinine 1.2 H Estimated GFR/1.73 m2 44.29 Glucose 176 H Calcium 8.8 Magnesium 1.3 L PFSH All Active Problems Full code status (Acute) Pain (Acute) Discharge planning issues (Acute) DVT prophylaxis (Acute) Fall (Acute) Anemia (Chronic) SANDY (acute kidney injury) (Acute) Hypomagnesemia (Acute) D-dimer, elevated (Acute) Decreased activities of daily living (ADL) (Acute) Mass of left ovary (Acute) Chronic kidney disease (Chronic) Essential hypertension (Acute) Diabetes mellitus type 2 (Chronic) On Metformin Back pain (Acute) Morbid obesity (Chronic) Hyperlipidemia (Chronic) 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 Leukocytosis. Intermittently febrile. Diverticulitis (Chronic) Recurrent. S/p high risk hemicolectomy in the setting of sepsis and hypotension 03/22/2013. Complication of a stomal leak resulting in an abdominal abscess. Readmitted to [facility] 05/03/13 emergently with sepsis syndrome and had an abdominal abscess drained. Completed rehab at [facility] with discharge most recently on after extensive dressing care of the abdominal wound with a wound VAC. Hepatitis C (Chronic) Recent negative viral count. Depression (Chronic) Vitamin D deficiency (Chronic) History of colostomy (Chronic) Medical History Anemia (05/03/13) Hemoglobin 8.2. Anemia Depression Diabetes mellitus Fall Gastroesophageal reflux disease GERD (gastroesophageal reflux disease) History of breast cancer History of hepatitis C History of incisional hernia History of renal failure Migraine Morbid obesity Osteopenia Palliative care patient Vitamin D deficiency Surgical History Colectomy H/O mastectomy Hernia Repair, Incisional x2 S/P cholecystectomy Family History Mother No problems noted. Father No problems noted. Social History Smoking/Tobacco Use Status: Former Tobacco Use Smoking risk assessment performed?: Yes Alcohol Intake: never Drug use: Never Substance use type: does not use Do you feel safe at home: Yes Do you feel safe in your relationship?: Yes
[2022-03-24] MEDS: Lidocaine 5% Patch 2 PATCH TP (22:02)
[2022-03-24] MEDS: traMADol 50 MG TAB 100 MG PO (22:02)
[2022-03-24 23:15] VITALS: BP 126/76; PULSE 86; RESP 18; TEMP 35.3; O2SAT 95
[2022-03-25 03:15] VITALS: BP 118/75; PULSE 85; RESP 20; TEMP 35.8; O2SAT 94
[2022-03-25 03:35] LABS: Source Nasal/Nares
[2022-03-25] MEDS: Sodium Zirconium Cyclosilicate 10 GM PKT PO (06:07)
[2022-03-25 07:24] VITALS: BP 154/76; PULSE 94; RESP 18; TEMP 35.9; O2SAT 92
--- NOTE | 2022-03-25 09:27 | W.PM.DS.N ---
Date of service: 03/25/22 Time of Service: 09:27 DS: Diagnosis Discharge Diagnosis (1) SANDY (acute kidney injury): Status: Acute (2) Anemia: Status: Chronic (3) Pain: Status: Acute (4) Fall: Status: Acute (5) D-dimer, elevated: Status: Acute (6) Diabetes mellitus type 2: Status: Chronic (7) UTI (urinary tract infection): Status: Resolved Discharge Plan Disposition Patient Disposition: SNF (LEVEL 1) [facility] Condition: Serious Discharge Details Reason For Visit: SANDY, Dizziness with Falls, Anemia Admit Date/Time: 03/16/22 21:13 Admit Provider: Angel Luis Sorto Attending Provider: Angel Luis Sorto Primary Care Provider: Mary Ann Luo Hospital Course Hospital Course: This is a 72-year-old patient with a past medical history of diabetes, hyperkalemia, hypertension, morbid obesity, diverticulitis, and depression who is a full code and lives at home. Shine presented to the [facility] Emergency department 03/16/2022 with the complaint of recent increased weakness and a fall at home. She had no obvious injury but appeared to be dehydrated.? She also appeared to be more anemic from her baseline with a drop in her hemoglobin 2 g/dL from 10-8.? She had no reported problems with her diabetes but is on a high dose of Lantus twice daily by review of her outpatient medication reconciliation. Urinalysis was unrevealing and did not appear to have any acute infectious process. She was admitted for IV hydration. She does have a caregiver at home. Her potassium remained high during hospitalization, it was not found out until late that she does take lokelma daily at home. Her potassium did normalize. She did have low iron, chronic anemia and received 3 infusions and will continue oral iro on discharge. She was unwilling to work with PT here because her ankle hurt. We did do an xray to rule out injury from when she fell, there has been previous trauma and hardware, there are no acute changes. We fitted her for an air cast and added a cast shoe and she felt much more comfortable and did get up and participate with PT. Her baseline is poor and she knows she has a lot of work to do. She is being discharged to the [facility] for rehab. Her goal is to ultmately go home. discussed with DR Iqbal Home Meds and New Rx's Prescriptions: New lidocaine 5 % Adhesive Patch,Medicated 2 patch topical HS Qty: 0 0RF ferrous sulfate 325 mg (65 mg iron) Tablet 325 mg PO BID@1000,2200 Qty: 0 0RF polyethylene glycol 3350 17 gram Powder In Packet 17 g PO DAILY PRN PRN (Reason: Constipation) Qty: 0 0RF Continued simvastatin [Zocor] 40 MG tablet 40 mg PO HS calcium carbonate-vitamin D3 [Calcium 600 + D(3)] 1 EACH tablet 1 ea PO DAILY quetiapine 25 mg Tablet 12.5 mg PO QPM Qty: 15 0RF magnesium oxide 400 mg magnesium Tablet 400 mg PO BID Qty: 60 0RF lisinopril 10 mg tablet 10 mg PO DAILY tramadol 50 mg Tablet 100 mg PO QHS nystatin 100,000 unit/gram cream 1 applic TOPICAL TID lidocaine 5 % Adhesive Patch,Medicated 1 patch TOPICAL DAILY Rx Instructions: leave on most painful area for up to 12 hrs aspirin 81 mg Tablet,Chewable 81 mg PO DAILY Lokelma 10 gram powder in packet 10 g PO DAILY Label Comments: TAKE 10 GRAMS (1 PACKET) ORALLY DAILY BEFORE BREAKFAST Rx Instructions: BEFORE BREAKFAST insulin glargine [Lantus Solostar U-100 Insulin] 100 unit/mL (3 mL) insulin pen 56 unit SUBCUT BID Label Comments: INJECT 56 UNITS SUBCUTANEOUSLY TWO TIMES A DAY- Once in the am and once in the pm albuterol sulfate [Ventolin HFA] 90 mcg/actuation Hfa Aerosol Inhaler 2 puff INHALATION Q4H cholecalciferol (vitamin D3) 50 mcg (2,000 unit) tablet 4,000 unit PO DAILY Label Comments: TAKE TWO TABLETS BY MOUTH EVERY DAY duloxetine 60 mg capsule,delayed release(DR/EC) 60 mg PO BID Label Comments: TAKE ONE CAPSULE BY MOUTH TWICE A DAY glipizide 5 mg tablet 10 mg PO BID Label Comments: TAKE TWO TABLETS BY MOUTH TWICE A DAY omeprazole 40 mg capsule,delayed release(DR/EC) 40 mg PO DAILY Label Comments: TAKE ONE CAPSULE BY MOUTH EVERY DAY pregabalin 50 mg capsule 50 mg PO TID Label Comments: TAKE ONE CAPSULE BY MOUTH THREE TIMES A DAY metoprolol succinate 25 mg Tablet Extended Release 24 Hr 25 mg PO DAILY Qty: 30 0RF Discontinued insulin lispro [Humalog KwikPen Insulin] 100 unit/mL Insulin Pen 12 - 25 unit SUBCUT TID Rx Instructions: sliding scale Discharge Instructions Instructions: Fall Prevention for Older Adults (DC), Hyperkalemia (DC) Stand Alone Forms: Nursing Discharge Form Activity:: Activity as Tolerated Equipment/Supplies:: Walker Diet:: Carb Counting Discharge Orders Discharge Orders: Discharge Order (Routine); Ordered 03/25/22 Ordered By: Leonie Rodriguez Discharge Data Discharge Date/Time-TO BE ENTERED AT DEPARTURE: 03/25/22 11:09 DS: Summary Time Spent with Patient providing and/or coordinating discharge services: Greater than 30 minutes Status at Discharge Functional status at discharge: uses cane/walker Overall status at discharge: patient is not back to baseline Mental Status: mental status grossly normal Speech and Movement: speech clear Mood: congruent mood Affect: normal affect Exam Const General: cooperative, comfortable and no acute distress Nutritional Appearance: obese Orientation: alert, awake and oriented x3 HENMT Head: normal to inspection, normocephalic and atraumatic Resp Effort & Inspection: normal respiratory effort, able to speak in complete sentences and no cough Other: clear pale yellow urine noted in catheter bag Skin General skin exam: no rashes or lesions noted Psych Mental Status: mental status grossly normal Speech and Movement: speech clear Mood: congruent mood Affect: normal affect Attitude: cooperative and guarded Thought Process: impoverished Insight: limited Judgment: limited DS: Data Vitals/I&O Vitals and I&O: Vital Signs Temperature 35.9 C L 03/25/22 07:24 Temperature Source Tympanic 03/25/22 07:24 Pulse 94 H 03/25/22 07:24 Pulse Rhythm Regular 03/25/22 03:35 Pulse 98 H 03/16/22 21:31 Respiratory Rate 18 03/25/22 07:24 Respiratory Effort 03/25/22 03:35 Respiratory Depth Normal 03/25/22 03:35 Respiratory Pattern Normal 03/25/22 03:35 Blood Pressure 154/76 H 03/25/22 07:24 Blood Pressure Mean 69 03/16/22 21:31 Blood Pressure Position Sitting 03/16/22 17:58 Pulse Oximetry 92 03/25/22 07:24 Oxygen Delivery Method Nasal Cannula 03/25/22 07:24 Oxygen Flow Rate 1 03/25/22 07:24 Pain Level 8 03/25/22 07:24 Comment 03/24/22 23:15 Intake & Output 03/24/22 03/24/22 03/25/22 11:59 23:59 11:59 Intake Total 780.833 / 0633.152 1628 / 1835.833 Output Total 650 / 1950 1300 / 1950 200 / 200 Balance 130.833 / -114.167 -245 / -114.167 -200 / -200 Weight 143.9 kg 144.4 kg Intake: IV 60.833 / 395.833 335 / 395.833 Oral 720 / 1440 720 / 1440 Output: Urine 650 / 1450 800 / 1450 200 / 200 Stool 500 / 500 Other: Urine Color Yellow Light Ana Yellow Urine Appearance Clear Clear Cloudy Urine Odor Normal Comment Randle patent and draining, occasional leakage when repostioning in bed. Patient requested a brief at this time. Voiding Methods Indwelling Catheter Data Completed and Pending Labs on day of discharge: Labs from last 24 hours 03/25/22 03:30 COVID-19 Source Nasal/Nares SARS-CoV-2 (PCR) Pending [facility] All Active Problems Full code status (Acute) Pain (Acute) Discharge planning issues (Acute) DVT prophylaxis (Acute) Fall (Acute) Anemia (Chronic) SANDY (acute kidney injury) (Acute) Hypomagnesemia (Acute) D-dimer, elevated (Acute) Decreased activities of daily living (ADL) (Acute) Mass of left ovary (Acute) Chronic kidney disease (Chronic) Essential hypertension (Acute) Diabetes mellitus type 2 (Chronic) On Metformin Back pain (Acute) Morbid obesity (Chronic) Hyperlipidemia (Chronic) 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 Leukocytosis. Intermittently febrile. Diverticulitis (Chronic) Recurrent. S/p high risk hemicolectomy in the setting of sepsis and hypotension 03/22/2013. Complication of a stomal leak resulting in an abdominal abscess. Read[place] [facility] [place]03[place] emergently with sepsis syndrome and had an abdominal abscess drained. Completed rehab at [facility] with discharge most recently on after extensive dressing care of the abdominal wound with a wound VAC. Hepatitis C (Chronic) Recent negative viral count. Depression (Chronic) Vitamin D deficiency (Chronic) History of colostomy (Chronic) Medical History Anemia (05/03/13) Hemoglobin 8.2. Anemia Depression Diabetes mellitus Fall Gastroesophageal reflux disease GERD (gastroesophageal reflux disease) History of breast cancer History of hepatitis C History of incisional hernia History of renal failure Migraine Morbid obesity Osteopenia Palliative care patient Vitamin D deficiency Surgical History Colectomy H/O mastectomy Hernia Repair, Incisional x2 S/P cholecystectomy Family History Mother No problems noted. Father No problems noted. Social History Smoking/Tobacco Use Status: Former Tobacco Use Smoking risk assessment performed?: Yes Alcohol Intake: never Drug use: Never Substance use type: does not use Do you feel safe at home: Yes Do you feel safe in your relationship?: Yes
[2022-03-25] MEDS: Aspirin 81 MG CHEW PO (10:01)
[2022-03-25] MEDS: Magnesium Oxide 400 MG TAB PO (10:01)
[2022-03-25] MEDS: Ferrous Sulfate 325 MG TAB PO (10:01)
[2022-03-25] MEDS: Cholecalciferol (Vitamin D3) 1,000 UNIT TAB 4000 UNITS PO (10:01)
[2022-03-25] MEDS: Calcium 600mg/Vit D 200U TAB 1 TAB PO (10:02)
[2022-03-25] MEDS: Metoprolol 12.5 MG TAB PO (10:02)
[2022-03-25] MEDS: Pregabalin 50 MG CAP 100 MG PO (10:02)
[2022-03-25] MEDS: DULoxetine 30 MG CAP 60 MG PO (10:02)
[2022-03-25] MEDS: Omeprazole 20 MG CAPCR 40 MG PO (10:02)
[2022-03-25] MEDS: Nystatin POWDER 60 GM JAR TP (10:03)
[2022-03-25] MEDS: Insulin Aspart 300 UNITS/3 ML PEN SC (10:03)
[2022-03-25] MEDS: Patch Removal 2 EACH TP (10:07)
--- NOTE | 2022-03-25 10:36 | CMDISCH_ITS ---
- If Service Date Differs Date of service: 03/25/22 Time of Service: 10:36 LACE Index Scoring Tool - Questions: Length of Stay (in days): 7 - 13 Acuity (Admit via E.D.?): Yes Comorbidities: Diabetes w/o Complication, Liver or Renal Disease E.D. Visits: 3 - Answers: Total Score: 16 Risk of Readmission: High Risk Care Management Discharge Reason for Hospitalization: SANDY, dizziness with falls, anemia Discharge Plan: Raven will transition to the [facility] for short term rehab prior to returning home. She will transport via [place] [facility], coordinated by CM. She will follow up with her PCP and discharge plan of care. Patient/Family Education Needs: Review discharge instructions and limitations, discussion of self care needs including ask me three and goals of care. Services Needed at Discharge: Shelter Facility ([facility]), Transportation ([place] [facility])
--- NOTE | 2022-03-25 11:12 | PT.INTREAT ---
PT Notes Visit Reasons: SANDY, Dizziness with Falls, Anemia Inpatient Physical Therapy Treatment Note [facility] Date: 03/25/22 SUBJECTIVE: Maricel [facility] OBJECTIVE: [] PAIN: right foot pain BED MOBILITY/TRANSFERS Supine-sit: SBA Sit-stand: Max assist x1 with bed elevated Stand-sit: min assist Bed-Chair: max A x2 GAIT Assistive Device: FWW Weight bearing: AT Assist: max A x1, and min A x1 Distance: pivot transfer ASSESSMENT: tolerated fair. C/o foot pain which decreased her ability/willingness to transfer. Much encouragement needed. Cues required to maneuver walker appropriately. PLAN: pt d/c to [facility] TREATMENT CODE/TIME: 15 min [id number]
[2022-03-25 12:16] LABS: COVID-19 PCR Negative (Negative)
== END 2022-03-25 11:09 | disposition skilled nursing facility (03) | DRG 683 ==
LOC: ER 21:31 → MS 22:35
PROVIDERS: Internal Medicine; Nurse Practitioner Acute Care; Nurse Practitioner Family; Admitting Provider Family Medicine; Emergency Provider Student in an Organized Health Care Education/Training Program; PCP Family Medicine; Visit Provider Family Medicine
DX: N17.9 Acute kidney failure, unspecified (principal); F05 Delirium due to known physiological condition; Z68.44 Body mass index [BMI] 60.0-69.9, adult; N39.0 Urinary tract infection, site not specified; E11.9 Type 2 diabetes mellitus without complications; D50.9 Iron deficiency anemia, unspecified; E66.01 Morbid (severe) obesity due to excess calories; F32.A Depression, unspecified; N18.9 Chronic kidney disease, unspecified; I12.9 Hypertensive chronic kidney disease with stage 1 through stage 4 chronic kidney disease, or unspecified chronic kidney disease; N83.8 Other noninflammatory disorders of ovary, fallopian tube and broad ligament; Z79.84 Long term (current) use of oral hypoglycemic drugs; E78.5 Hyperlipidemia, unspecified; M54.9 Dorsalgia, unspecified; E55.9 Vitamin D deficiency, unspecified; E83.42 Hypomagnesemia; E86.0 Dehydration; Z90.49 Acquired absence of other specified parts of digestive tract; Z98.0 Intestinal bypass and anastomosis status; R00.0 Tachycardia, unspecified; Z85.3 Personal history of malignant neoplasm of breast; W19.XXXA Unspecified fall, initial encounter; K21.9 Gastro-esophageal reflux disease without esophagitis; B96.89 Other specified bacterial agents as the cause of diseases classified elsewhere; G89.29 Other chronic pain; Z79.4 Long term (current) use of insulin; I95.9 Hypotension, unspecified; M79.672 Pain in left foot; M79.671 Pain in right foot; Z87.891 Personal history of nicotine dependence; R79.1 Abnormal coagulation profile; M25.571 Pain in right ankle and joints of right foot; E87.5 Hyperkalemia; Z86.19 Personal history of other infectious and parasitic diseases; E87.6 Hypokalemia
CPT/HCPCS: 36415; 36416; 80048; 80053; 82550; 82805; 85027; 87077; 87635; 93005; 94640; 96361; 96365; 96366; 96372; 97110; 97163; 97530; 99285; 70450; 73610; 81003; 81015; 82436; 82607; 82728; 82746; 83036; 83540; 83550; 83735; 84132; 84133; 84300; 84443; 84484; 85025; 85379; 87086; 87186; 93010; 94760; 99223; 99232; 99233; 99239; J0696; J1650; J1756; J3475; J3490; J7614

== ENCOUNTER 2022-03-27 07:43 | Inpatient (IN) | payer MEDICARE, MEDICAID, SELFPAY ==
[2022-03-27] VITALS (9 sets, daily range): BP systolic 129–152; BP diastolic 55–81; PULSE 104–113; RESP 4–24; TEMP 36.2–37.7; O2SAT 92–100
--- NOTE | 2022-03-27 07:45 | RT.EKG_ITS ---
APPROVED REPORT Exam: Resting ECG Reason for Exam: shortness of breath Patient Location: E HR:110 bpm ECG Measurements Heart Rate 110 AXIS HI 159 P 70 QRSd 75 QRS 56 QT 326 T 45 QTc 440 Conclusion Sinus tachycardia. No significant change from previous 03/20/22
--- NOTE | 2022-03-27 08:00 | DI.RAD_ITS ---
Exam(s) XR PORTABLE CHEST AP EXAM: XR PORTABLE CHEST AP CLINICAL HISTORY: SOB TECHNIQUE: 2D digital imaging was performed. COMPARISON: No exams were available for comparison FINDINGS: The heart is enlarged. The lung bases are under penetrated there is overlying abdominal soft tissues . There are no visible pleural effusions. There is vascular prominence and increased interstitial m arkings consistent with CHF. There is no focal area consolidation. IMPRESSION: Findings consistent with CHF. DATA REPOSITORY: RADIATION DOSE DELIVERED:
[2022-03-27] MEDS: Albuterol/Ipratropium 3 ML UPD VIAL (08:05)
--- NOTE | 2022-03-27 08:15 | W.ED.GENAD ---
Discharge Plan Disposition Patient Disposition: [facility] INPATIENT Condition: Improving Discharge Details Chief Complaint: SOB Clinical Impression: Morbid obesity, COPD exacerbation, CHF (congestive heart failure) Primary Care Provider: Mary Ann Luo ED Provider: Rayshawn De La O Home Meds and New Rx's Prescriptions: No Action simvastatin [Zocor] 40 MG tablet 40 mg PO HS calcium carbonate-vitamin D3 [Calcium 600 + D(3)] 1 EACH tablet 1 ea PO DAILY quetiapine 25 mg Tablet 12.5 mg PO QPM Qty: 15 0RF magnesium oxide 400 mg magnesium Tablet 400 mg PO BID Qty: 60 0RF lisinopril 10 mg tablet 10 mg PO DAILY tramadol 50 mg Tablet 100 mg PO QHS nystatin 100,000 unit/gram cream 1 applic TOPICAL TID lidocaine 5 % Adhesive Patch,Medicated 1 patch TOPICAL DAILY Rx Instructions: leave on most painful area for up to 12 hrs aspirin 81 mg Tablet,Chewable 81 mg PO DAILY Lokelma 10 gram powder in packet 10 g PO DAILY Label Comments: TAKE 10 GRAMS (1 PACKET) ORALLY DAILY BEFORE BREAKFAST Rx Instructions: BEFORE BREAKFAST lidocaine 5 % Adhesive Patch,Medicated 2 patch topical HS Qty: 0 0RF ferrous sulfate 325 mg (65 mg iron) Tablet 325 mg PO BID@1000,2200 Qty: 0 0RF polyethylene glycol 3350 17 gram Powder In Packet 17 g PO DAILY PRN PRN (Reason: Constipation) Qty: 0 0RF insulin glargine [Lantus Solostar U-100 Insulin] 100 unit/mL (3 mL) insulin pen 56 unit SUBCUT BID Label Comments: INJECT 56 UNITS SUBCUTANEOUSLY TWO TIMES A DAY- Once in the am and once in the pm albuterol sulfate [Ventolin HFA] 90 mcg/actuation Hfa Aerosol Inhaler 2 puff INHALATION Q4H cholecalciferol (vitamin D3) 50 mcg (2,000 unit) tablet 4,000 unit PO DAILY Label Comments: TAKE TWO TABLETS BY MOUTH EVERY DAY duloxetine 60 mg capsule,delayed release(DR/EC) 60 mg PO BID Label Comments: TAKE ONE CAPSULE BY MOUTH TWICE A DAY glipizide 5 mg tablet 10 mg PO BID Label Comments: TAKE TWO TABLETS BY MOUTH TWICE A DAY omeprazole 40 mg capsule,delayed release(DR/EC) 40 mg PO DAILY Label Comments: TAKE ONE CAPSULE BY MOUTH EVERY DAY pregabalin 50 mg capsule 50 mg PO TID Label Comments: TAKE ONE CAPSULE BY MOUTH THREE TIMES A DAY metoprolol succinate 25 mg Tablet Extended Release 24 Hr 25 mg PO DAILY Qty: 30 0RF Medical Decision Making 72-year-old female with a number of chronic medical problems presents from the [facility] where she has been for approximately 1 day following discharge from the hospital. She was noted to have increased work of breathing, wheezing, hypoxia for which EMS was called. She was given a DuoNeb en route with improvement. She denies having a recent cough. Her COVID test on March 25 was negative. Patient placed in a monitored bed, IV access established, inhaled beta agonist therapy initiated with DuoNeb treatment. Patient given steroids and magnesium. Laboratory panel, EKG and chest x-ray obtained. Chest x-ray reveals prominent vasculature and mild interstitial thickening, no focal consolidation. Cardiomegaly present. Impression is of CHF exacerbation. Laboratories note a negative troponin and a BNP of 1448 which is elevated over previous. Note of low magnesium 1.3 which was supplemented in the ER. Renal function appears to be at baseline with a BUN of 16 creatinine 1.2. Will initiate diuresis. This appears to be combination of COPD exacerbation as well as CHF exacerbation. Patient with difficult IV access. Multiple nursing attempts and attempted Dr. Dickey had been difficult. She has a functional upper extremity IV and is stable. Discussed further work-up and management with the admitting hospitalist team. HPI General Mode of arrival: EMS. Date/Time Provider Initiated Documentation: 03/27/22 07:47. Limitations to Documentation: no limitations. Information obtained by: patient and EMS. History of Present Illness 72 year old F presents to the emergency department with the chief complaint of Shortness of breath and hypoxia to 60% at the [facility], described as moderate and similar to prior episodes, Quality is described as dull and constant, and is localized to the chest. Patient reports no radiation. Patient started experiencing this minute(s) and it has been other (Improving). Rest improves symptom(s), Patient notes shortness of breath; denies chest pain, cough and syncope. Patient did receive the following treatments prior to arrival, other (DuoNeb and oxygen on route with EMS) Related Data Home Medications Medication Instructions Recorded Confirmed calcium carbonate 600 mg-vitamin 1 ea PO DAILY 05/10/13 03/27/22 D3 10 mcg (400 unit) tablet (Calcium 600 + D(3)) simvastatin 40 mg tablet (Zocor) 40 mg PO HS 05/10/13 03/27/22 albuterol sulfate 90 mcg/actuation 2 puff inhalation Q4H 12/08/20 03/27/22 aerosol inhaler (Ventolin HFA) insulin glargine 100 unit/mL (3 56 unit subcut BID 12/08/20 03/27/22 mL) subcutaneous pen (Lantus Solostar U-100 Insulin) cholecalciferol (vitamin D3) 50 4,000 unit PO DAILY 11/05/21 03/27/22 mcg (2,000 unit) tablet duloxetine 60 mg capsule,delayed 60 mg PO BID 11/05/21 03/27/22 release glipizide 5 mg tablet 10 mg PO BID 11/05/21 03/27/22 omeprazole 40 mg capsule,delayed 40 mg PO DAILY 11/05/21 03/27/22 release pregabalin 50 mg capsule 50 mg PO TID 11/05/21 03/27/22 metoprolol succinate 25 mg 25 mg PO DAILY #30 tabs 11/09/21 03/27/22 tablet,extended release 24 hr magnesium oxide 400 mg PO BID #60 tabs 12/02/21 03/27/22 quetiapine 25 mg tablet 12.5 mg PO QPM #15 tabs 12/02/21 03/27/22 lisinopril 10 mg tablet 10 mg PO DAILY 03/16/22 03/27/22 tramadol 50 mg tablet 100 mg PO QHS 03/17/22 03/27/22 aspirin 81 mg chewable tablet 81 mg PO DAILY 03/24/22 03/27/22 ferrous sulfate 325 mg (65 mg 325 mg PO BID@1000,2200 #0 tabs 03/24/22 03/27/22 iron) tablet lidocaine 5 % topical patch 1 patch topical DAILY 03/24/22 03/27/22 lidocaine 5 % topical patch 2 patch topical HS #0 ea 03/24/22 03/27/22 nystatin 100,000 unit/gram topical 1 applic topical TID 03/24/22 03/27/22 cream polyethylene glycol 3350 17 gram 17 g PO DAILY PRN PRN Constipation 03/24/22 03/27/22 oral powder packet #0 ea sodium zirconium cyclosilicate 10 10 g PO DAILY 03/24/22 03/27/22 gram oral powder packet (Lokelma) Previous Rx's Medication Instructions Recorded metoprolol succinate 25 mg 25 mg PO DAILY #30 tabs 11/09/21 tablet,extended release 24 hr magnesium oxide 400 mg PO BID #60 tabs 12/02/21 quetiapine 25 mg tablet 12.5 mg PO QPM #15 tabs 12/02/21 ferrous sulfate 325 mg (65 mg 325 mg PO BID@1000,2200 #0 tabs 03/24/22 iron) tablet lidocaine 5 % topical patch 2 patch topical HS #0 ea 03/24/22 polyethylene glycol 3350 17 gram 17 g PO DAILY PRN PRN Constipation 03/24/22 oral powder packet #0 ea Allergies Allergy/AdvReac Type Severity Reaction Status Date / Time epinephrine Allergy Severe chest Unverified 03/27/22 07:57 pain/heart attack Penicillins Allergy Intermediate rsh fever Unverified 03/27/22 07:57 banana [Banana] Allergy Unverified 03/27/22 07:57 NSAIDS (Non-Steroidal Allergy unkown Unverified 03/27/22 07:57 Anti-Inflamma Sulfa (Sulfonamide Allergy rash,fever Unverified 03/27/22 07:57 Antibiotics) Tetracyclines Allergy rash fever Unverified 03/27/22 07:57 sodium polystyrene sulfonate AdvReac Severe tachy/dyspn Unverified 03/27/22 07:57 [From Kayexalate] ea/rash Niacin Preparations AdvReac Intermediate flushing Unverified 03/27/22 07:57 General Stated Complaint: SOB TASHA: 2 Review of Systems Narrative: Recent admission. States he remains bedbound. Eating in bed. Denies new lower extremity swelling, no chest pain, no palpitations. Recent negative COVID test March 25. 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 Leukocytosis. Intermittently febrile. Diverticulitis (Chronic) Recurrent. S/p high risk hemicolectomy in the setting of sepsis and hypotension 03/22/2013. Complication of a stomal leak resulting in an abdominal abscess. [place] [facility] [place] emergently with sepsis syndrome and had an abdominal abscess drained. Completed rehab at [facility] with discharge most recently on after extensive dressing care of the abdominal wound with a wound VAC. Hepatitis C (Chronic) Recent negative viral count. Depression (Chronic) Vitamin D deficiency (Chronic) History of colostomy (Chronic) Medical History Anemia (05/03/13) Hemoglobin 8.2. Anemia Depression Diabetes mellitus Fall Gastroesophageal reflux disease GERD (gastroesophageal reflux disease) History of breast cancer History of hepatitis C History of incisional hernia History of renal failure Migraine Morbid obesity Osteopenia Palliative care patient Vitamin D deficiency Surgical History Colectomy H/O mastectomy Hernia Repair, Incisional x2 S/P cholecystectomy Family History Mother No problems noted. Father No problems noted. Social History Smoking/Tobacco Use Status: Former Tobacco Use Smoking risk assessment performed?: Yes Alcohol Intake: never Drug use: Never Substance use type: does not use Do you feel safe at home: Yes Do you feel safe in your relationship?: Yes Exam Narrative Exam Narrative: GEN: awake, alert, oriented 3. Pleasant, interactive. HEAD: Normocephalic, atraumatic ENT: Mucous membranes moist, oropharynx unremarkable, External ear exam unremarkable EYES: PERRL, EOMI NECK: Full ROM, no ZAINAB, no menigismus CHEST/RESP: Nontender, bilateral end expiratory wheeze present. Mild increased work of breathing. CARDIOVASCULAR: Regular and tachycardic, no murmur, rub ludivina. Weak rad pulse bilateral ABDOMEN: Soft, nontender, no mass. +Bowel sounds EXT: Full ROM, no significant edema, no rash Neuro: Grossly normal neurologic exam, conversant, interactive. Psych: Speech fluent, thoughts congruent, affect normal Course Vital Signs Vital signs: Vital Signs Temperature 36.2 C L 03/27/22 07:53 Pulse 111 H 03/27/22 07:53 Respiratory Rate 20 03/27/22 07:53 Blood Pressure 140/55 L 03/27/22 07:53 Pulse Oximetry 100 03/27/22 07:53 Temperature 36.2 C L 03/27/22 07:53 Pulse 111 H 03/27/22 07:53 Respiratory Rate 20 03/27/22 07:53 Blood Pressure 140/55 L 03/27/22 07:53 Blood Pressure Position Supine 03/27/22 07:53 Pulse Oximetry 100 03/27/22 07:53 Oxygen Delivery Method Aerosol Mask 03/27/22 07:53 Oxygen Flow Rate 6 03/27/22 07:53
[2022-03-27 08:52] LABS: COVID-19 PCR Negative (Negative); Influenza A PCR Negative (Negative); Influenza B PCR Negative (Negative); RSV PCR Negative (Negative); Source Nasopharynx
[2022-03-27] MEDS: MAGNESIUM SULFATE 1 GM/100 ML BAG IVPB (08:52)
[2022-03-27] MEDS: methylPREDNISolone SUCC 125 MG VIAL IVP (09:00)
[2022-03-27] MEDS: Albuterol/Ipratropium 3 ML UPD VIAL UPD ×3 (09:12→11:55)
[2022-03-27 09:13] LABS: ALT 18 U/L (14-59); AST 23 U/L (15-37); Albumin 2.5 g/dL (3.4-5.0); Alkaline Phosphatase 126 U/L (46-116); BUN 16 mg/dL (7-18); Bilirubin, Total 0.3 mg/dL (0.2-1.0); CREATININE 1.2 mg/dL (0.55-1.02); Calcium 9.3 mg/dL (8.5-10.1); Chloride 101 mmol/L (98-107); Estimated GFR 44.29 (mL/min/1.73m2); Glucose 234 mg/dL (74-106); Magnesium 1.3 mg/dL (1.8-2.4); NT-proBNP 1448 pg/mL (<300); Potassium 5.1 mmol/L (3.5-5.1); Sodium 140 mmol/L (136-145); Total Protein 7.5 g/dL (6.4-8.2); Troponin I < 50 ng/L (<or=60)
--- NOTE | 2022-03-27 09:35 | DI.VRAD_ITS ---
PROCEDURE INFORMATION: Exam: XR Chest Exam date and time: 03/27/2022 9:07 AM Age: 72 years old Clinical indication: Other: SOB TECHNIQUE: Imaging protocol: Radiologic exam of the chest. Views: 1 view. COMPARISON: CT CHEST PE ABD PELVIS W 11/04/2021 4:50 PM FINDINGS: Lungs: Lungs are adequately expanded. There is pulmonary vascular prominence and mild interstitial thickening without focal consolidation. Pleural spaces: Mild blunting of the costophrenic angle suggests small pleural effusions. No pneumothorax. Heart/Mediastinum: Cardiomegaly. Atherosclerosis of the aortic arch. Bones/joints: Degenerative changes of the shoulders and spine. No acute osseous findings. IMPRESSION: Constellation of findings favor CHF exacerbation. Dictated and Authenticated by: Lillie iPckard MD. Ordering:BRAYAN Tabares MD
[2022-03-27] MEDS: Furosemide 20 MG/2 ML VIAL IVP (10:19)
[2022-03-27 10:29] LABS: Abs Immature Grans 0.29 10^3/uL (0.0-0.06); Absolute Basophil Count 0.05 10^3/uL (0.0-0.2); Absolute Neutrophil Count 13.26 10^3/uL (1.2-6.7); Basophils % 0.3; Eosinophils % 1.8; HCT 29.9 % (36.0-46.0); HGB 8.2 g/dL (11.2-15.7); Immature Grans % 1.9; Lymphocytes % 5.4; MCH 23.8 pg (27.0-33.0); MCHC 27.4 % (32.0-36.0); MCV 87 fL (80-95); MPV 9.8 fL (8.0-11.0); Neutrophils % 86.6; Nucleated RBC 0.2 % (0.0-0.3); Platelet Count 163 10^3/uL (130-400); RBC 3.44 10^6/uL (3.93-5.22); RDW-SD 59.1 fL; WBC 15.31 10^3/uL (4.4-10.8)
[2022-03-27 10:30] LABS: Absolute Eosinophil Count 0.28 10^3/uL (0.0-0.7); Absolute Lymphocyte Count 0.83 10^3/uL (1.2-3.4); Absolute Monocyte Count 0.61 10^3/uL (0.1-0.8)
--- NOTE | 2022-03-27 12:00 | HPE_ITS ---
Date of service: 03/27/22 Time of Service: 14:00 Assessment and Plan Assessment and plan (1) CHF (congestive heart failure): Status: Chronic Assessment and plan: Acute Pro BNP 1448 Strict I&O diurese daily weights (2) COPD exacerbation: Status: Acute Assessment and plan: Acute on chronic; nebs, oxygen, IS, acapella (3) Leukocytosis: Status: Acute Assessment and plan: WBC 15 Lactate pending - BC not done, unable to obtain by lab or ED. Ceftriaxone 2 gm daily (4) Chronic kidney disease: Status: Chronic Assessment and plan: BUN 16 Creat 1.2 (5) Essential hypertension: Status: Chronic Assessment and plan: chronic - stable - continue home meds (6) Diabetes mellitus type 2: Status: Chronic Assessment and plan: chronic - sliding scale, finger sticks AC & HS (7) Morbid obesity: Status: Chronic Assessment and plan: Nutrition and diabtetic educator consults (8) DVT prophylaxis: Status: Acute Assessment and plan: Enoxaparin full dose (possible PE - unable to do CT s/t venous access) (9) Discharge planning issues: Status: Acute Assessment and plan: Return to the [facility]. History of Present Illness History of Present Illness Chief Complaint: Difficulty breathing Narrative: 72-year-old female with a number of chronic medical problems presents to the [facility] emergency department from the [facility] where she has been for approximately 1 day following discharge from the hospital.? She was noted to have increased work of breathing, wheezing, hypoxia for which EMS was called.? She was given a DuoNeb en route with improvement.? She denies having a recent cough.? Her COVID test on March 25 was negative. Chest x-ray reveals prominent vasculature and mild interstitial thickening, no focal consolidation.? Cardiomegaly present.? Impression is of CHF exacerbation.? Laboratories note a negative troponin and a BNP of 1448 which is elevated over previous.? Note of low magnesium 1.3 which was supplemented in the ED.? Renal function appears to be at baseline with a BUN of 16 creatinine 1.2. Diuresis was initiated. She has a combination of COPD exacerbation as well as CHF exacerbation.? She was stuck many times in the ED, venous and arterial and getting anymore blood was unsuccessful. She does have a patent IV to the right AC, but it does not draw. 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 Leukocytosis. Intermittently febrile. Diverticulitis (Chronic) Recurrent. S/p high risk hemicolectomy in the setting of sepsis and hypotension 03/22/2013. Complication of a stomal leak resulting in an abdominal abscess. Readmitted to [facility] 05/03/13 emergently with sepsis syndrome and had an abdominal abscess drained. Completed rehab at [facility] with discharge most recently on after extensive dressing care of the abdominal wound with a wound VAC. Hepatitis C (Chronic) Recent negative viral count. Depression (Chronic) Vitamin D deficiency (Chronic) History of colostomy (Chronic) Medical History Anemia (05/03/13) Hemoglobin 8.2. Anemia Depression Diabetes mellitus Fall Gastroesophageal reflux disease GERD (gastroesophageal reflux disease) History of breast cancer History of hepatitis C History of incisional hernia History of renal failure Migraine Morbid obesity Osteopenia Palliative care patient Vitamin D deficiency Surgical History Colectomy H/O mastectomy Hernia Repair, Incisional x2 S/P cholecystectomy Family History Mother No problems noted. Father No problems noted. Social History Smoking/Tobacco Use Status: Former Tobacco Use Smoking risk assessment performed?: Yes Alcohol Intake: never Drug use: Never Substance use type: does not use Do you feel safe at home: Yes Do you feel safe in your relationship?: Yes Meds Allergies and Home Medications Allergies Allergy/AdvReac Type Severity Reaction Status Date / Time epinephrine Allergy Severe chest Unverified 03/27/22 07:57 pain/heart attack Penicillins Allergy Intermediate rsh fever Unverified 03/27/22 07:57 banana [Banana] Allergy Unverified 03/27/22 07:57 NSAIDS (Non-Steroidal Allergy unkown Unverified 03/27/22 07:57 Anti-Inflamma Sulfa (Sulfonamide Allergy rash,fever Unverified 03/27/22 07:57 Antibiotics) Tetracyclines Allergy rash fever Unverified 03/27/22 07:57 sodium polystyrene sulfonate AdvReac Severe tachy/dyspn Unverified 03/27/22 07:57 [From Kayexalate] ea/rash Niacin Preparations AdvReac Intermediate flushing Unverified 03/27/22 07:57 Home Medications Medication Instructions Recorded Confirmed Type calcium carbonate 600 mg-vitamin 1 ea PO DAILY 05/10/13 03/27/22 History D3 10 mcg (400 unit) tablet (Calcium 600 + D(3)) simvastatin 40 mg tablet (Zocor) 40 mg PO HS 05/10/13 03/27/22 History albuterol sulfate 90 mcg/actuation 2 puff inhalation Q4H 12/08/20 03/27/22 History aerosol inhaler (Ventolin HFA) insulin glargine 100 unit/mL (3 56 unit subcut BID 12/08/20 03/27/22 History mL) subcutaneous pen (Lantus Solostar U-100 Insulin) cholecalciferol (vitamin D3) 50 4,000 unit PO DAILY 11/05/21 03/27/22 History mcg (2,000 unit) tablet duloxetine 60 mg capsule,delayed 60 mg PO BID 11/05/21 03/27/22 History release glipizide 5 mg tablet 10 mg PO BID 11/05/21 03/27/22 History omeprazole 40 mg capsule,delayed 40 mg PO DAILY 11/05/21 03/27/22 History release pregabalin 50 mg capsule 50 mg PO TID 11/05/21 03/27/22 History metoprolol succinate 25 mg 25 mg PO DAILY #30 tabs 11/09/21 03/27/22 Rx tablet,extended release 24 hr magnesium oxide 400 mg PO BID #60 tabs 12/02/21 03/27/22 Rx quetiapine 25 mg tablet 12.5 mg PO QPM #15 tabs 12/02/21 03/27/22 Rx lisinopril 10 mg tablet 10 mg PO DAILY 03/16/22 03/27/22 History tramadol 50 mg tablet 100 mg PO QHS 03/17/22 03/27/22 History aspirin 81 mg chewable tablet 81 mg PO DAILY 03/24/22 03/27/22 History ferrous sulfate 325 mg (65 mg 325 mg PO BID@1000,2200 #0 tabs 03/24/22 03/27/22 Rx iron) tablet lidocaine 5 % topical patch 1 patch topical DAILY 03/24/22 03/27/22 History lidocaine 5 % topical patch 2 patch topical HS #0 ea 03/24/22 03/27/22 Rx nystatin 100,000 unit/gram topical 1 applic topical TID 03/24/22 03/27/22 History cream polyethylene glycol 3350 17 gram 17 g PO DAILY PRN PRN Constipation 03/24/22 03/27/22 Rx oral powder packet #0 ea sodium zirconium cyclosilicate 10 10 g PO DAILY 03/24/22 03/27/22 History gram oral powder packet (Lokelma) Exam Narrative Exam Narrative: GEN: awake, alert, oriented 3. Pleasant, interactive. HEAD: Normocephalic, atraumatic ENT: Mucous membranes moist, oropharynx unremarkable, External ear exam unremarkable EYES: PERRL, EOMI NECK: Full ROM, no ZAINAB, no menigismus CHEST/RESP: Nontender, slight bilateral end expiratory wheeze present. Mild increased work of breathing. CARDIOVASCULAR: Regular and tachycardic, no murmur, rub ludivina. ABDOMEN: Soft, nontender, no mass. +Bowel sounds EXT: Full ROM, no significant edema, no rash Neuro: Grossly normal neurologic exam, conversant, interactive. Psych: Speech fluent, thoughts congruent, affect normal Results Labs Result diagrams: 03/27/22 10:25 03/27/22 17:20 Labs: Laboratory Results - last 24 hr 03/27/22 03/27/22 03/27/22 08:00 08:06 08:45 WBC RBC Hgb Hct MCV MCH MCHC RDW Plt Count MPV Immature Gran % Neutrophils % Lymphocytes % Monocytes % Eosinophils % Basophils % Nucleated RBC % Absolute Neutrophils Absolute Lymphocytes Absolute Monocytes Absolute Eosinophils Absolute Basophils ABG Sample Site Cancelled ABG pH Cancelled ABG pCO2 Cancelled ABG pO2 Cancelled ABG HCO3 Cancelled ABG Total CO2 Cancelled ABG O2 Saturation Cancelled ABG Base Excess Cancelled Oxygen Liter Flow Cancelled FiO2 Cancelled Sodium 140 Potassium 5.1 Chloride 101 Carbon Dioxide 37.0 H Anion Gap 2.0 L BUN 16 Creatinine 1.2 H Estimated GFR/1.73 m2 44.29 Glucose 234 H Calcium 9.3 Magnesium 1.3 L Total Bilirubin 0.3 AST 23 ALT 18 Alkaline Phosphatase 126 H Troponin I < 50 NT-Pro-B Natriuret Pep 1448 H Total Protein 7.5 Albumin 2.5 L COVID-19 Source Nasopharynx SARS-CoV-2 (PCR) Negative Influenza Type A (PCR) Negative Influenza Type B (PCR) Negative RSV (PCR) Negative 03/27/22 03/27/22 08:45 10:25 WBC 15.31 H RBC 3.44 L Hgb 8.2 L Hct 29.9 L MCV 87 MCH 23.8 L MCHC 27.4 L RDW 20.0 H Plt Count 163 MPV 9.8 Immature Gran % 1.9 Neutrophils % 86.6 Lymphocytes % 5.4 Monocytes % 4.0 Eosinophils % 1.8 Basophils % 0.3 Nucleated RBC % 0.2 Absolute Neutrophils 13.26 H Absolute Lymphocytes 0.83 L Absolute Monocytes 0.61 Absolute Eosinophils 0.28 Absolute Basophils 0.05 ABG Sample Site ABG pH ABG pCO2 ABG pO2 ABG HCO3 ABG Total CO2 ABG O2 Saturation ABG Base Excess Oxygen Liter Flow FiO2 Sodium Potassium Chloride Carbon Dioxide Anion Gap BUN Creatinine Estimated GFR/1.73 m2 Glucose Calcium Magnesium Total Bilirubin AST ALT Alkaline Phosphatase Troponin I NT-Pro-B Natriuret Pep Cancelled Total Protein Albumin COVID-19 Source SARS-CoV-2 (PCR) Influenza Type A (PCR) Influenza Type B (PCR) RSV (PCR) Last Vital Signs Temp 37.1 C 03/27/22 11:01 Pulse 111 H 03/27/22 11:01 Resp 22 03/27/22 11:01 BP 129/72 03/27/22 11:01 Pulse Ox 92 03/27/22 11:01
[2022-03-27 12:26] LABS: Lab Add On Test DONE
[2022-03-27 13:15] LABS: Procalcitonin 0.3 ng/mL
[2022-03-27] MEDS: Normal Saline Flush 10 ML SYR IVP (13:42)
[2022-03-27] MEDS: MAGNESIUM SULFATE 4 GM/100 ML BAG IVPB (13:45)
[2022-03-27 15:15] LABS: Bilirubin Negative (Negative); Blood Negative (Negative); Clarity Clear (Clear); Glucose 500 mg/dL (Negative); Ketones Negative (Negative); Leukocyte Esterase Negative (Negative); Nitrite Negative (Negative); Specific Gravity 1.015 (1.005-1.025); Urobilinogen 0.2 EU/dL (Up TO 0.2)
[2022-03-27 17:43] LABS: Glucose 491 mg/dL (74-106)
[2022-03-27] MEDS: Insulin Aspart 300 UNITS/3 ML PEN SC (18:08)
[2022-03-27] MEDS: cefTRIAXone 2 GM/50 ML BAG IVPB (18:35)
[2022-03-27 18:45] LABS: Lactate 1.9 mmol/L (0.9-1.7)
[2022-03-27] MEDS: QUEtiapine 25 MG TAB 12.5 MG PO (20:53)
[2022-03-27] MEDS: Pregabalin 50 MG CAP PO (20:53)
[2022-03-27] MEDS: DULoxetine 30 MG CAP 60 MG PO (20:53)
[2022-03-27] MEDS: glipiZIDE 5 MG TAB 10 MG PO (20:54)
[2022-03-27] MEDS: Magnesium Oxide 400 MG TAB PO (20:54)
[2022-03-27 22:01] LABS: Glucose 456 mg/dL (74-106)
[2022-03-27] MEDS: Ferrous Sulfate 325 MG TAB PO (22:05)
[2022-03-27] MEDS: traMADol 50 MG TAB 100 MG PO (22:05)
[2022-03-27] MEDS: Lidocaine 5% Patch 2 PATCH TP (22:05)
[2022-03-27] MEDS: Simvastatin 40 MG TAB PO (22:06)
[2022-03-27] MEDS: Insulin Glargine 300 UNITS/3 ML PEN 25 UNITS SC (22:14)
[2022-03-28] VITALS (10 sets, daily range): BP systolic 108–150; BP diastolic 68–85; PULSE 90–103; RESP 16–24; TEMP 36.2–36.7; O2SAT 93–99
[2022-03-28] MEDS: Insulin Aspart 300 UNITS/3 ML PEN 10 UNITS SC
[2022-03-28] MEDS: Normal Saline Flush 10 ML SYR IVP ×2 (06:15→17:35)
[2022-03-28] MEDS: LORazepam 20 MG/10 ML VIAL IVP (06:15)
[2022-03-28 06:44] LABS: Abs Immature Grans 0.22 10^3/uL (0.0-0.06); Absolute Eosinophil Count 0.01 10^3/uL (0.0-0.7); Absolute Lymphocyte Count 0.68 10^3/uL (1.2-3.4); Absolute Monocyte Count 0.77 10^3/uL (0.1-0.8); Basophils % 0.1; Eosinophils % 0.1; HCT 28.1 % (36.0-46.0); HGB 8.1 g/dL (11.2-15.7); Immature Grans % 1.6; MCH 24.3 pg (27.0-33.0); MCHC 28.8 % (32.0-36.0); MCV 84 fL (80-95); MPV 9.9 fL (8.0-11.0); Monocytes % 5.7; Neutrophils % 87.5; Nucleated RBC 0.2 % (0.0-0.3); Platelet Count 148 10^3/uL (130-400); RBC 3.34 10^6/uL (3.93-5.22); RDW 20.1 % (11.7-14.6); RDW-SD 58.1 fL; WBC 13.51 10^3/uL (4.4-10.8)
[2022-03-28 07:01] LABS: Anion Gap 3.3 mmol/L (3-11); BUN 22 mg/dL (7-18); CO2 37.7 mmol/L (21.0-32.0); CREATININE 1.3 mg/dL (0.55-1.02); Calcium 9.4 mg/dL (8.5-10.1); Chloride 98 mmol/L (98-107); Estimated GFR 40.38 (mL/min/1.73m2); Glucose 350 mg/dL (74-106); Magnesium 2.2 mg/dL (1.8-2.4); Sodium 139 mmol/L (136-145)
[2022-03-28 07:02] LABS: Absolute Basophil Count 0.01 10^3/uL (0.0-0.2); Absolute Neutrophil Count 11.82 10^3/uL (1.2-6.7)
[2022-03-28 07:20] LABS: Anisocytosis 2+; Hypochromasia 1+; Microcytosis 2+; Polychromasia Present
[2022-03-28] MEDS: glipiZIDE 5 MG TAB 10 MG PO ×2 (08:30→16:35)
[2022-03-28] MEDS: Pregabalin 50 MG CAP PO ×3 (08:30→20:23)
[2022-03-28] MEDS: DULoxetine 30 MG CAP 60 MG PO ×2 (08:30→20:23)
[2022-03-28] MEDS: Metoprolol CR 25 MG TABCR PO (08:31)
[2022-03-28] MEDS: Magnesium Oxide 400 MG TAB PO ×2 (08:31→20:23)
[2022-03-28] MEDS: Lisinopril 10 MG TAB PO (08:31)
[2022-03-28] MEDS: Sodium Zirconium Cyclosilicate 10 GM PKT PO (08:31)
[2022-03-28] MEDS: Aspirin 81 MG CHEW PO (08:31)
[2022-03-28] MEDS: Nystatin CREAM 30 GM TUBE TP ×3 (08:32→20:23)
[2022-03-28] MEDS: Insulin Glargine 300 UNITS/3 ML PEN 25 UNITS SC ×2 (08:33→21:27)
[2022-03-28] MEDS: Insulin Aspart 300 UNITS/3 ML PEN SC ×3 (08:34→17:36)
--- NOTE | 2022-03-28 09:29 | PDOC.CMIN ---
- If Service Date Differs Date of service: 03/28/22 Time of Service: 09:29 Care Management Initial Assess REASON FOR HOSPITALIZATION:: CHF PAST MEDICAL HISTORY/PAST SURGICAL HISTORY:: All Active Problems . Leukocytosis (Acute). DVT prophylaxis (Acute). Discharge planning issues (Acute). COPD exacerbation (Acute). CHF (congestive heart failure) (Chronic). Fall (Acute). Anemia (Chronic). Decreased activities of daily living (ADL) (Acute). Mass of left ovary (Acute). Chronic kidney disease (Chronic). Essential hypertension (Chronic). Diabetes mellitus type 2 (Chronic). On Metformin. Back pain (Acute). Morbid obesity (Chronic). Hyperlipidemia (Chronic). 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 Worsening ulceration of a peristomal fistula that appears to be expanding in size. Leukocytosis. Intermittently febrile. Diverticulitis (Chronic). Recurrent. S/p high risk hemicolectomy in the setting of sepsis and hypotension 03/22/2013. Complication of a stomal leak resulting in an abdominal abscess. Readmitted to [facility] 05/03/13 emergently with sepsis syndrome and had an abdominal abscess drained. Completed rehab at [facility] with discharge most recently on after extensive dressing care of the abdominal wound with a wound VAC. Hepatitis C (Chronic). Recent negative viral count. Depression (Chronic). Vitamin D deficiency (Chronic). History of colostomy (Chronic). Medical History . Anemia (05/03/13). Hemoglobin 8.2. Anemia. Depression. Diabetes mellitus. Fall. Gastroesophageal reflux disease. GERD (gastroesophageal reflux disease). History of breast cancer. History of hepatitis C. History of incisional hernia. History of renal failure. Migraine. Morbid obesity. Osteopenia. Palliative care patient. Vitamin D deficiency. Surgical History . Colectomy. H/O mastectomy. Hernia Repair, Incisional. x2. S/P cholecystectomy PREVIOUS FUNCTIONAL STATUS/SOCIAL/FAMILY SUPPORTS:: Raven lives in [facility] with her boyfriend Rodolfo, although most recently she has been at [facility] for short term rehab. She has three daughters who live locally. Raven uses an electric wheelchair for mobility and also has a FWW but walks very little, if at all. She has support from family and friends. CURRENT FUNCTIONAL STATUS:: Raven was preparing to transfer from her bed to chair with PT when CM came to see her. She had a lot of difficulty but managed to walk about 3 to 4 feet with her walker. She was not in a good mood as evidenced by her tone directed at nursing when requested to use her left hand to push herself off of the bed. Raven received her lunch when CM was with her and requested a ham sandwich instead of egg salad. CM provided education about a low sodium diet recommended for patients with CHF. CM indicated that ham would not be on her diet it has a high sodium content. Raven stated she didn't care and that she eats ham all the time. Raven also stated that she would like to go home from [facility]. She shared that her family does not like [facility]. CM informed her that a conversation was held with her daughter this morning who wanted her to return to the [facility]. Raven indicated that she and Rodolfo are not getting along very well and that this is a new development. He had told her daughter Marcia that he cannot care for her anymore and Raven stated he doesn't have to. When asked who would be able to care for her, she replied my granddaughter. She informed CM that her granddaughter would move in with her if Bill wasn't there. Raven also informed CM that she believes that Rodolfo may be taking her money from their joint checking account. She explained that she intends to remove him from her account but understands that he ananda need to sign off on this if it to happen. ADVANCE DIRECTIVES:: On file. Ning shaver Has patient been provided with info about the portal/API?: Yes Did the patient sign up for the portal?: No CODE STATUS:: Full Code INSURANCE COVERAGE / FINANCIAL ISSUES:: [facility] Medicare Replacement CURRENT HOME/COMMUNITY SERVICES/EQUIPMENT:: currently at the [facility] for short term rehab PRIMARY CARE PHYSICIAN:: Mary Ann Luo POTENTIAL DISCHARGE NEEDS:: Follow up with PCP and plan of care PATIENT/FAMILY EDUCATION NEEDS:: Review discharge instructions regarding activity levels and medications, diet, including sodium restriction, discussion of self care needs including ask me three. PLAN:: Raven will likely return to the [facility] when medically cleared, although she is currently stating that she wants to go home. This was her position for much of her last admission as well. Raven will transport via private vehicle by family. She will follow up with her PCP and discharge plan of care. CM will continue to follow. Readmission - Within the Past 30 Days Yes or No: Y - Date of First Admission Date of 1st Admission: 03/16/22 - Date of this Admission Date of Admission: 03/27/22 This admission was: Through ED - If the patient came from Ext. Facility Call the Facility to discuss the patient's admission: This is a new diagnosis of CHF. - Ask the Care Team Members: What do you think caused the patient to be readmitted: Raven was often reluctant to move and to ambulate with PT during last admission. - Assessment for Readmission Summary of readmission circumstances, based upon interviews: Raven was at [facility] for only 2 days prior to admission. She developed SOB while there and was diagnosed with CHF in the ED. This is a new diagnosis for Raven.
--- NOTE | 2022-03-28 09:44 | PT.INNT ---
Date of service: 03/28/22 Time of Service: 09:44 PT Notes Visit Reasons: Congestive heart failure Patient was given 1.0 mg of Ativan at 6 am today but patient remains unable to sustain wakefulness and is somnolent. Will try approach patient later this morning to attempt a PT eval. Thank you for the opportunity to participate in the care of this patient. Selene Collado PT, DPT, CLT [facility] [place], [place]
[2022-03-28] MEDS: Ferrous Sulfate 325 MG TAB PO ×2 (10:28→21:28)
[2022-03-28] MEDS: Patch Removal 2 EACH TP (10:36)
--- NOTE | 2022-03-28 11:47 | PT.INIE ---
Date of service: 03/28/22 Time of Service: 11:47 PT Notes Visit Reasons: Congestive heart failure Physical Therapy Inpatient Initial Evaluation Date: 03/28/2022 Referring Doctor: Corin Kennedy MD PT Orders: PT CONSULT: Fall Safety Assessment Precautions: Fall. Standard. Activity as tolerated. Patient Profile/Admitting Diagnosis: Patient was seen from 03/17/2022 through 03/25/2022 for management of exacerbation of low back pain, hyperkalemia, and hypomagnesemia.? Raven is a 71-year-old female who presented again to the ED on to the ED on 03/27/2022 due to increasing shortness of breath, wheezing, and hypoxia. Patient is diagnosed with exacerbation of congestive heart failure and COPD. PMHX: All Active Problems? 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 Leukocytosis.? Intermittently febrile. Diverticulitis (Chronic) Recurrent.? S/p high risk hemicolectomy in the setting of sepsis and hypotension 03/22/2013. Complication of a stomal leak resulting in an abdominal abscess.? Readmitted to [facility] 05/03/13 emergently with sepsis syndrome and had an abdominal abscess drained. ? Completed rehab at [facility] with discharge most recently on after extensive dressing care of ? ?? the abdominal wound with a wound VAC. Hepatitis C (Chronic) Recent negative viral count.Depression (Chronic) Vitamin D deficiency (Chronic) History of colostomy (Chronic) Medical History? Anemia (05/03/13) Hemoglobin 8.2.Anemia Depression Diabetes mellitus Fall Gastroesophageal reflux disease GERD (gastroesophageal reflux disease) History of breast cancer History of hepatitis C History of incisional hernia History of renal failure Migraine Morbid obesity Osteopenia Palliative care patient Vitamin D deficiency Surgical History? Colectomy H/O mastectomy Hernia Repair, Incisional x2S/P cholecystectomy Social History/Home Situation: Lives with significant other in a mobile home with a ramp to enter and alternate 3 steps to enter.? Requires assistance from significant other for all transfers using walker.? Short distance ambulation only prior to admission. Equipment Owned/DME: Front-wheeled walker, wheelchair Subjective: Somnolent during first attempt of PT around 9:44 am this morning but was awake during the second attempt at 11:47AM and was agreeable to transferring to bedside chair. Objective: General Observation:? Supine in bed.? Colostomy bag in place.? High BMI.? Telemetry monitoring in place. Mental Status: Alert and oriented as to person, place, time, and purpose. Able to pay attention, focus, and respond appropriately. Pain: Minimal pain in R foot to touch Vital Signs: Within normal limits as closely monitored by nursing staff. Blood sugar taken right before lunch by Nurse Prabhakar was 268 mg/dL. ROM: Right Upper Extremity: ? Shoulder Flexion lacks 50% of AROM. Shoulder abduction lacks 50% of AROM. Elbow flexion WFL. Wrist flexion WFL. Functional opening and closing of hand WFL. Left Upper Extremity:? Shoulder Flexion lacks 50% of AROM. Shoulder abduction lacks 50% of AROM. Elbow flexion WFL. Wrist flexion WFL. Functional opening and closing of hand WFL. Right Lower Extremity: Hip flexion unable beyond 90 while seated at edge of bed Hip abduction 10 degrees. Knee flexion 0 to 90 degrees. Ankle dorsiflexion to neutral only. Ankle plantarflexion WFL. Left Lower Extremity: Hip flexion unable beyond 90 while seated at edge of bed Hip abduction 10 degrees. Knee flexion 0 to 90 degrees. Ankle dorsiflexion to neutral only. Ankle plantarflexion WFL. Strength: Right Upper Extremity: Shoulder flexors 3-/5. Shoulder abductors 3-/5. Elbow flexors 3-/5. Elbow extensors 3-/5. [employer] Lead strong. Left Upper Extremity: Shoulder flexors 3-/5. Shoulder abductors 3-/5. Elbow flexors 3-/5. Elbow extensors 3-/5. [employer] Lead strong. Right Lower Extremity: Hip flexors 3-/5. Hip abductors 3-/5. Knee flexors 3-/5. Knee extensor 3-/5. Ankle dorsiflexors 3-/5. Ankle plantarflexors 4-/5. Left Lower Extremity: Hip flexors 3-/5. Hip abductors 3-/5. Knee flexors 3-/5. Knee extensor 3-/5. Ankle dorsiflexors 3-/5. Ankle plantarflexors 4-/5. Bed Mobility/Transfers: Rolling with minimal assist with cues for safe/correct technique Sit to stand with minimal assist of 2, bed height increased for safety Stand to sit with minimal assist of 2 with FWW Bed to reclining chair with minimal assist of 2 with minimal cues for safe/correct technique Gait: Tolerated 10 small steps using bariatric front-wheeled walker with full weight bearing on B LE requiring minimal assist of 2.? Patient complains of fatigue and weakness in B LE as well as mild shortness of breath.? Step width wide. No loss of balance seen.? Decreased alexis.? Nurse Tri, Nurse Markus, and CM Svetlana assisted with transfer and positioning patient comfortably on the chair. Balance: Static Sitting: Good Dynamic Sitting: Fair Static Standing: Fair Dynamic Standing: Poor Special Tests: Mobility Limitations Standardized Measure [facility]-PAC 6 clicks Basic Mobility Inpatient Short Form: Raw Score: 12 CMS Score: 69% deficit? ? ? Informed Consent/Education:? Patient was instructed in purpose of PT consult and plan of care. Agreeable to proceed with established PT POC to achieve personal goals. ASSESSMENT: Patient demonstrates ambulatory dysfunction, limited functional mobility, decrease fall risk, and ADL dependence resulting from SANDY, Anemia,? dizziness, recent fall, high BMI, and comorbid conditions as above whic all increase risk for repeated falls.? Limited ability of significant other to help due to own mobility issues.? Patient presents with clinical signs and symptoms consistent with current/admitting diagnoses that have resulted to mobility limitations, gait instability, generalized weakness, and overall ADL decline as demonstrated by the following impairment level findings: 1.? Decreased strength to B LE major muscle groups 2.? Impaired sitting/standing balance 3.? Impaired activity tolerance 4.? Limitation of joint range of motion in back and B UE/LE 5.? Shortness of breath 6.? Low back pain Impairments are contributing to the following functional limitations: 1.? Decline in bed mobility skills 2.? Decline in transfer skills 3.? Difficulty with ambulation without assistive device and physical assistance 4.? Increased completion time for mobility ADL performance 5.? Increased risk for falls 6.? Difficulty with managing steps alone safely Patient is assessed as a 11731 high complexity based on the following: History: 72-year-old femalewith past medical history as indicated above Examination: Demonstrable impairment in strength, balance, and mobility level with underlying impairments and functional limitations as exhibited above as well as deficit score of 69% utilizing the [facility] Mobility Inpatient Short Form Presentation: Evolving Decision Makin high complexity Goals: Goals X1 week 1. Supine-Sit independent 2. Sit-Supine independent 3. Sit-Stand standby assist 4. Stand-Sit with standby assist with bariatric FWW 5. Bed-Chair standby assist with bariatric FWW 6. Chair-Bed standby assist with bariatric FWW 7. Standby assist with bariatric FWW for gait on level surface with use of FWW for at least 30 feet without report of pain nor dyspnea 8. Good static and dynamic standing balance/tolerance Plan of Care/Treatment Plan: 1-2x/day, 7 days/week x 1 week. Plan of care has been reviewed with the LIVE SOURCE OPERATOR providing the service under Physical Therapy direction. Initiate Physical Therapy intervention for pain management as needed, strengthening, bed mobility, transfers, gait, stairs, balance training, and use of assistive device. DISCHARGE RECOMMENDATIONS: [] ? Home with no services [] [] ? Home with services [specify] [] ? Home with outpatient PT [] [X] ? SNF for continued rehabilitation.? Patient will benefit from intermediate facility placement for continued skilled physical therapy services in order to progress mobility level, strength, and balance in preparation for a safe discharge to home. [] ? Half-Way Care [] [] ? SNF versus LTC based on ability to participate and progress [] TREATMENT CODE/TIME: 61937? x 23 minutes beginning at 11:47 AM. Thank you for the opportunity to participate in the care of this patient. Selene Collado PT, DPT, CLT [facility] [place], [place]
--- NOTE | 2022-03-28 11:53 | PHA.REVIEW ---
Pharmacy Admission Review - Admission Clinical Review (Last Reviewed 03/27/22 @ 08:21 by Rayshawn De La O MD) Leukocytosis (Acute) DVT prophylaxis (Acute) Discharge planning issues (Acute) COPD exacerbation (Acute) epinephrine Allergy (Severe, Unverified 03/27/22 07:57) chest pain/heart attack Penicillins Allergy (Intermediate, Unverified 03/27/22 07:57) rsh fever banana [Banana] Allergy (Unverified 03/27/22 07:57) NSAIDS (Non-Steroidal Anti-Inflamma Allergy (Unverified 03/27/22 07:57) unkown Sulfa (Sulfonamide Antibiotics) Allergy (Unverified 03/27/22 07:57) rash,fever Tetracyclines Allergy (Unverified 03/27/22 07:57) rash fever sodium polystyrene sulfonate [From Kayexalate] Adverse Reaction (Severe, Unverified 03/27/22 07:57) tachy/dyspnea/rash Niacin Preparations Adverse Reaction (Intermediate, Unverified 03/27/22 07:57) flushing Resuscitation Status Full Code Height 5 ft 2 in Weight 137.7 kg - Renal Dosing Renal Dosing: BUN 22 mg/dL (7-18) H 03/28/22 06:35 Creatinine 1.3 mg/dL (0.55-1.02) H 03/28/22 06:35 Medications needing adjustments: Reviewed (Crcl ~53.3 mL/min using adjusted body weight, current meds okay.) - Anticoagulation Anticoagulation: Hgb 8.1 g/dL (11.2-15.7) L 03/28/22 06:35 Hct 28.1 % (36.0-46.0) L 03/28/22 06:35 Plt Count 148 10^3/uL (130-400) 03/28/22 06:35 INR Cancelled 03/27/22 08:15 Creatinine 1.3 mg/dL (0.55-1.02) H 03/28/22 06:35 DVT Prophylaxis: N/A Therapeutic Anticoagulation: Reviewed Medications: Enoxaparin (therapeutic dosing ordered due to possible PE, unable to do CT per H&P) - Opiate Usage Evaluate Pain Scale/Pains Meds: Reviewed Scheduled Bowel Reg ordered if on Opiates?: No (has PRN meds ordered) - Relevant Labs Sodium 139 mmol/L (136-145) 03/28/22 06:35 Potassium 5.0 mmol/L (3.5-5.1) 03/28/22 06:35 Chloride 98 mmol/L (98-107) 03/28/22 06:35 Magnesium 2.2 mg/dL (1.8-2.4) 03/28/22 06:35 Electrolytes, C-Reactive P, ESR: Reviewed (PO mag replacement ordered BID, lokelma ordered daily) - DM Control DM Control: Glucose 350 mg/dL (74-106) H 03/28/22 06:35 Finger Stick Blood Glucose 268 Finger Stick Blood Glucose 268 Finger Stick Blood Glucose 316 Finger Stick Blood Glucose 316 Finger Stick Blood Glucose 316 Finger Stick Blood Glucose 316 Finger Stick Blood Glucose 329 Finger Stick Blood Glucose 329 Insulin Dosing: Reviewed (Scheduled insulin glargine, sliding scale aspart, and glipizide ordered) - Heart Failure/LA Heart Failure/LA: Troponin I < 50 ng/L (<or=60) 03/27/22 08:45 NT-Pro-B Natriuret Pep 1448 pg/mL (<300) H 03/27/22 08:45 NT-Pro-B Natriuret Pep Cancelled 03/27/22 08:45 EF%, MIRNA's, B-Blockers, Diuretics: Reviewed - BP Control BP Control: Blood Pressure 145/69 Blood Pressure 150/85 Blood Pressure 108/68 If elevated: Reviewed (BP has been up and down a bit since admission. Pt has lisinopril and metoprolol ordered.) - Qtc Review If Elevated: N/A (QTc 440 on admission) - IV to PO Switch IV Medications: Reviewed - Home Meds Home Med List reviewed: Reviewed (Med list in [facility] was updated last admission based on the med list from PCP's office per Pharmacy Clinical Review from that admission.) Relevent Home Meds Not ordered & why?: all home meds are currently ordered - Current meds Current Medication Order Review: Intervened (Adjusted the timing of the glipizide order based on the med administration time policy. Previous pharmacist discontinued duplicate med orders.) - Comments Comments/Follow Ups: Watch BP, BG, SCr, mag, K+, H/H, and for med changes (possible renal dose adjustments) Antibiotic Activity - Pharmacy Antibiotic Review Pharmacy Antibiotic Activity: Reviewed, no change (ceftriaxone ordered (day 2 starts this evening))
--- NOTE | 2022-03-28 12:55 | W.NUTCONSULT ---
Date of service: 03/28/22 Time of Service: 12:55 Nutritional Consult ASSESSMENT: Received consult for education on diet with CHF. Met with Raven this morning. She declines education. Previously had met with her for diabetes education, and she declined that as well. She was, however, interested, in getting a continuous glucose monitor- provided her with information/contact info for out patient nutritional counseling after discharge. NUTRITIONAL DIAGNOSIS: Morbid Obesity with BMI of 55 Food Nutrition and nuttrition related knowledge deficit. Not ready for diet/lifestyle changes INTERVENTION: Low Salt, diabetic diet Limit excess fluid intake MONITORING AND EVALUATION: weight, po intake, labs Time Spent in Nutritional Counseling and Treatment: 0
--- NOTE | 2022-03-28 13:45 | W.PM.PROGNOT ---
Date of Service Date of service: 03/28/22 Time of Service: 13:45 Assessment and Plan Assessment and plan (1) CHF (congestive heart failure): Status: Chronic Assessment and plan: continue diuresis with strict I&O daily weights, down 5.6 kg overnight and + 3 liters last echo October 2021, consider repeating if echo available. Conclusion Normal left ventricular wall thickness and chamber size.? Estimated ejection fraction is 55%.? There are no segmental wall motion abnormalities Normal right ventricular size and systolic function Both atria are normal in size [place] aortic valve without stenosis or regurgitation Mild mitral annular calcification.? Mild mitral regurgitation Normal tricuspid valve with trace regurgitation.? Estimated right ventricular systolic pressure is 36 mmHg (2) COPD exacerbation: Status: Acute Assessment and plan: Acute on chronic; nebs, oxygen, IS, acapella (3) Leukocytosis: Status: Acute Assessment and plan: WBC 15 on admission and trending downward Lactate 1.9 - BC not done, unable to obtain by lab or ED. procal 0.3 CXR most consistent with CHF but could be respiratory source of infection urine negative continue Ceftriaxone 2 gm daily day 25 as she seems to be improving. (4) Chronic kidney disease: Status: Chronic Assessment and plan: stable and at baseline. BUN 16 Creat 1.2 (5) Essential hypertension: Status: Chronic Assessment and plan: chronic - stable - continue home meds (6) Diabetes mellitus type 2: Status: Chronic Assessment and plan: chronic - sliding scale, finger sticks AC & HS blood sugar poorly controlled in setting of high dose steroids. continue home diabetes management A1C was 6.9 on march 17, 2022 (7) Morbid obesity: Status: Chronic Assessment and plan: Nutrition and diabtetic educator consults (8) DVT prophylaxis: Status: Acute Assessment and plan: Enoxaparin full dose (possible PE - unable to do CT s/t venous access) (9) Discharge planning issues: Status: Acute Assessment and plan: Return to the [facility] when medically stable. palliative care following: goals of care, code status case management following for discharge planning. discussed with DR De Guzman. Subjective Subjective Patient reports: no new complaints and afebrile; denies shortness of breath Exam Const General: cooperative, comfortable and no acute distress Nutritional Appearance: obese Orientation: alert, awake and oriented x3 HENMT Head: normal to inspection, normocephalic and atraumatic Resp Effort & Inspection: normal respiratory effort, able to speak in complete sentences and no cough Other: clear pale yellow urine noted in catheter bag Skin General skin exam: no rashes or lesions noted Psych Mental Status: mental status grossly normal Speech and Movement: speech clear Mood: congruent mood Affect: normal affect Insight: limited Judgment: limited Objective Last Vital Signs Temp 36.2 C L 03/28/22 11:53 Pulse 95 H 03/28/22 11:53 Resp 16 03/28/22 11:53 BP 131/69 03/28/22 11:53 Pulse Ox 98 03/28/22 11:53 Laboratory Results - last 24 hr 03/27/22 03/27/22 03/27/22 14:35 17:20 18:35 WBC RBC Hgb Hct MCV MCH MCHC RDW Plt Count MPV Immature Gran % Neutrophils % Lymphocytes % Monocytes % Eosinophils % Basophils % Nucleated RBC % Absolute Neutrophils Absolute Lymphocytes Absolute Monocytes Absolute Eosinophils Absolute Basophils RBC Morphology Polychromasia Hypochromasia Anisocytosis Microcytosis VBG Lactate 1.9 H Sodium Potassium Chloride Carbon Dioxide Anion Gap BUN Creatinine Estimated GFR/1.73 m2 Glucose 491 H Calcium Magnesium Urine Color Yellow Urine Clarity Clear Urine pH 6.0 Ur Specific [place] 1.015 Urine Protein Negative Urine Ketones Negative Urine Blood Negative Urine Nitrite Negative Urine Bilirubin Negative Urine Urobilinogen 0.2 Ur Leukocyte Esterase Negative Urine Glucose 500 H Add-On Test Request 03/27/22 03/27/22 03/28/22 21:38 Unknown 06:35 WBC RBC Hgb Hct MCV MCH MCHC RDW Plt Count MPV Immature Gran % Neutrophils % Lymphocytes % Monocytes % Eosinophils % Basophils % Nucleated RBC % Absolute Neutrophils Absolute Lymphocytes Absolute Monocytes Absolute Eosinophils Absolute Basophils RBC Morphology Polychromasia Hypochromasia Anisocytosis Microcytosis VBG Lactate Sodium 139 Potassium 5.0 Chloride 98 Carbon Dioxide 37.7 H Anion Gap 3.3 BUN 22 H Creatinine 1.3 H Estimated GFR/1.73 m2 40.38 Glucose 456 H 350 H Calcium 9.4 Magnesium 2.2 Urine Color Urine Clarity Urine pH Ur Specific [place] Urine Protein Urine Ketones Urine Blood Urine Nitrite Urine Bilirubin Urine Urobilinogen Ur Leukocyte Esterase Urine Glucose Add-On Test Request Cancelled 03/28/22 06:35 WBC 13.51 H RBC 3.34 L Hgb 8.1 L Hct 28.1 L MCV 84 MCH 24.3 L MCHC 28.8 L RDW 20.1 H Plt Count 148 MPV 9.9 Immature Gran % 1.6 Neutrophils % 87.5 Lymphocytes % 5.0 Monocytes % 5.7 Eosinophils % 0.1 Basophils % 0.1 Nucleated RBC % 0.2 Absolute Neutrophils 11.82 H Absolute Lymphocytes 0.68 L Absolute Monocytes 0.77 Absolute Eosinophils 0.01 Absolute Basophils 0.01 RBC Morphology See Below Polychromasia Present Hypochromasia 1+ Anisocytosis 2+ Microcytosis 2+ VBG Lactate Sodium Potassium Chloride Carbon Dioxide Anion Gap BUN Creatinine Estimated GFR/1.73 m2 Glucose Calcium Magnesium Urine Color Urine Clarity Urine pH Ur Specific [place] Urine Protein Urine Ketones Urine Blood Urine Nitrite Urine Bilirubin Urine Urobilinogen Ur Leukocyte Esterase Urine Glucose Add-On Test Request
[2022-03-28] MEDS: cefTRIAXone 2 GM/50 ML BAG IVPB (17:35)
[2022-03-28] MEDS: Furosemide 20 MG/2 ML VIAL IVP (17:35)
--- NOTE | 2022-03-28 18:00 | PT.INDS ---
Date of service: 03/28/22 PT Notes Visit Reasons: Congestive heart failure Physical Therapy Inpatient Discharge Summary Date: 03/28/2022 Dates of Service: 03/17/2022 through 03/24/2022 This is a clinical summary of care provided for the duration of dates listed above. No charge was made in the completion of this documentation. Referring Doctor: Fabián De Guzman MD PT Orders: PT CONSULT: Fall Safety Assessment Precautions: Fall. Standard. Activity as tolerated. Patient Profile/Admitting Diagnosis: Raven is a 71-year-old female who presented to the ED on 11/23/2021 due to exacerbation of low back pain and generalized weakness.? Patient is diagnosed with exacerbation of low back pain, hyperkalemia, and hypomagnesemia.? PMHX: All Active Problems? 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 Leukocytosis.? Intermittently febrile. Diverticulitis (Chronic) Recurrent.? S/p high risk hemicolectomy in the setting of sepsis and hypotension 03/22/2013. Complication of a stomal leak resulting in an abdominal abscess.? Readmitted to [facility] 05/03/13 emergently with sepsis syndrome and had an abdominal abscess drained. ? Completed rehab at [facility] with discharge most recently on after extensive dressing care of ? ?? the abdominal wound with a wound VAC. Hepatitis C (Chronic) Recent negative viral count.Depression (Chronic) Vitamin D deficiency (Chronic) History of colostomy (Chronic) Medical History? Anemia (05/03/13) Hemoglobin 8.2.Anemia Depression Diabetes mellitus Fall Gastroesophageal reflux disease GERD (gastroesophageal reflux disease) History of breast cancer History of hepatitis C History of incisional hernia History of renal failure Migraine Morbid obesity Osteopenia Palliative care patient Vitamin D deficiency Surgical History? Colectomy H/O mastectomy Hernia Repair, Incisional x2S/P cholecystectomy Social History/Home Situation: Lives with significant other in a mobile home with a ramp to enter and alternate 3 steps to enter.? Requires assistance from significant other for all transfers using walker.? Short distance ambulation only prior to admission. Equipment Owned/DME: Front-wheeled walker, wheelchair Subjective: NT. See most recent TRACTOR ENGINE MECHANIC notes. Objective: General Observation:? NT. See most recent TRACTOR ENGINE MECHANIC notes. Mental Status: NT. See most recent TRACTOR ENGINE MECHANIC notes. Pain: NT. See most recent TRACTOR ENGINE MECHANIC notes. Vital Signs: NT. See most recent TRACTOR ENGINE MECHANIC notes. ROM: Right Upper Extremity: ? Shoulder Flexion lacks 50% of AROM. Shoulder abduction lacks 50% of AROM. Elbow flexion WFL. Wrist flexion WFL. Functional opening and closing of hand WFL. Left Upper Extremity:? Shoulder Flexion lacks 50% of AROM. Shoulder abduction lacks 50% of AROM. Elbow flexion WFL. Wrist flexion WFL. Functional opening and closing of hand WFL. Right Lower Extremity: Hip flexion unable beyond 90 while seated at edge of bed Hip abduction 10 degrees. Knee flexion 0 to 90 degrees. Ankle dorsiflexion to neutral only. Ankle plantarflexion WFL. Left Lower Extremity: Hip flexion unable beyond 90 while seated at edge of bed Hip abduction 10 degrees. Knee flexion 0 to 90 degrees. Ankle dorsiflexion to neutral only. Ankle plantarflexion WFL. Strength: Right Upper Extremity: Shoulder flexors 3-/5. Shoulder abductors 3-/5. Elbow flexors 3-/5. Elbow extensors 3-/5. Guide Dog Instructor strong. Left Upper Extremity: Shoulder flexors 3-/5. Shoulder abductors 3-/5. Elbow flexors 3-/5. Elbow extensors 3-/5. Guide Dog Instructor strong. Right Lower Extremity: Hip flexors 3-/5. Hip abductors 3-/5. Knee flexors 3-/5. Knee extensor 3-/5. Ankle dorsiflexors 3-/5. Ankle plantarflexors 4-/5. Left Lower Extremity: Hip flexors 3-/5. Hip abductors 3-/5. Knee flexors 3-/5. Knee extensor 3-/5. Ankle dorsiflexors 3-/5. Ankle plantarflexors 4-/5. BED MOBILITY/TRANSFERS? Sit-stand: CGA x2? Stand-sit: CGA x2? Bed-chair: CGA x2 ? GAIT? Assistive Device: Bariatric FWW? Weight bearing: Full Assist: CGA x2 ? Distance:? 4' in a.m.; 6 steps x3 in p.m. ? Deviation: Moderate SOB, increased fatigue, wide DIPESH; seated rest x3? Balance: Static Sitting: Good Dynamic Sitting: Fair Static Standing: Fair Dynamic Standing: Poor ASSESSMENT: Patient demonstrates ambulatory dysfunction, limited functional mobility, decrease fall risk, and ADL dependence resulting from SNADY, Anemia,? dizziness, recent fall, high BMI, and comorbid conditions as above whic all increase risk for repeated falls.? Limited ability of significant other to help due to own mobility issues.? Patient presents with clinical signs and symptoms consistent with current/admitting diagnoses that have resulted to mobility limitations, gait instability, generalized weakness, and overall ADL decline as demonstrated by the following impairment level findings: 1.? Decreased strength to B LE major muscle groups 2.? Impaired sitting/standing balance 3.? Impaired activity tolerance 4.? Limitation of joint range of motion in back and B UE/LE 5.? Shortness of breath 6.? Low back pain Impairments are contributing to the following functional limitations: 1.? Decline in bed mobility skills 2.? Decline in transfer skills 3.? Difficulty with ambulation without assistive device and physical assistance 4.? Increased completion time for mobility ADL performance 5.? Increased risk for falls 6.? Difficulty with managing steps alone safely Goals: Goals X1 week 1. Supine-Sit independent NOT MET 2. Sit-Supine independent NOT MET 3. Sit-Stand standby assist NOT MET 4. Stand-Sit with standby assist with bariatric FWW NOT MET 5. Bed-Chair standby assist with bariatric FWW NOT MET 6. Chair-Bed standby assist with bariatric FWW NOT MET 7. Standby assist with bariatric FWW for gait on level surface with use of FWW for at least 30 feet without report of pain nor dyspnea NOT MET 8. Good static and dynamic standing balance/tolerance NOT MET DISCHARGE RECOMMENDATIONS: [] ? Home with no services [] [] ? Home with services [specify] [] ? Home with outpatient PT [] [X] ? SNF for continued rehabilitation.? Patient will benefit from jail facility placement for continued skilled physical therapy services in order to progress mobility level, strength, and balance in preparation for a safe discharge to home. [] ? Detention Care [] [] ? SNF versus LTC based on ability to participate and progress [] TREATMENT CODE/TIME: AR Thank you for the opportunity to participate in the care of this patient. Selene Collado PT, DPT, CLT [facility] [place], [place]
[2022-03-28] MEDS: QUEtiapine 25 MG TAB 12.5 MG PO (20:23)
--- NOTE | 2022-03-28 20:26 | W.PALLCONSUL ---
Date of service: 03/28/22 Time of Service: 14:00 History of Present Illness Narrative: Ms. Carbajal is a 72 y/o F currently inpatient at [facility] 2/2 COPD/CHF exacerbation;?PMHx sig for?morbid obesity, HLD, hepatitis C, colostomy, back pain, DM w/CKD; pt was recently hospitalized from 03/16-03/25 r/t weakness, d/c'd to the [facility] for SNF, returning to [facility] ED on 03/27/22 w/CC SOB, admitted for COPD/CHF exacerbation CM unavailable at time of visit; pt does not wish to return to the [facility], or any SNF, did not feel received appropriate care, did not receive any therapy for first 24h, was having a hard time w/food; preference to return home; home is handicapped accessible, w/ramp in one door, reports feels able to get self out in case of fire; partner and housemate Bill no longer able to provide care for her ta home, pt states granddaughter Patricia has offered to help, however she doesn't have transportation to pt's home; daughters Marcia and Ning not involved too much in care, unsure of if will visit; would be willing to have [facility] RN/PT/OT services resumed, is working w/CM to see if insurance could pay for LOAN AND CREDIT MANAGER and housekeeping; pt reports feeling much better, is aware is requiring full ADL assistance; would like to return to walking, hsa been WC dependent for years, but able to use walker for transfers, feels good about this progress; pain persists BLE, no changes; continues w/queen and colostomy, no reported issues at is time; [facility] daughters Marcia and Ning, preference for Marcia as she's been more involved; remains FULL code, AD on file Assessment and Plan Assessment and plan (1) Palliative care patient: Assessment and plan: continue to follow throughout inpatient stay, may transition to swing bed d/c uncertain at this time, need for CM f/u pt unsafe to return home w/o caregiver assistance consider family meeting (2) Decreased activities of daily living (ADL): Status: Acute Assessment and plan: WC bound, colostomy and queen care, dependent ADLs, minus eating dependent instrumental ADLs including cooking, cleaning, transportation, bathing; medications come in bubble packs (3) No able caregiver in household: Status: Acute Assessment and plan: d/c'd home vs SNF vs swing bed (4) COPD exacerbation: Status: Acute Assessment and plan: Acute on chronic; continue nebs, oxygen, IS, acapella (5) Full code status: Status: Acute Assessment and plan: reviewed AD completed previously, pt remains FULL code, wishes to stay alive for family, would like to return to walking even small bits like she was a few weeks ago; continue to review CODE status, pt preference not to be kept alive on machines; (6) CHF (congestive heart failure): Status: Chronic Assessment and plan: continue diuresis with strict I&O daily weights, down 5.6 kg overnight and + 3 liters Review of Systems Narrative: see HPI PFSH All Active Problems Full code status (Acute) No able caregiver in household (Acute) Leukocytosis (Acute) DVT prophylaxis (Acute) Discharge planning issues (Acute) COPD exacerbation (Acute) CHF (congestive heart failure) (Chronic) Fall (Acute) Anemia (Chronic) Decreased activities of daily living (ADL) (Acute) Mass of left ovary (Acute) Chronic kidney disease (Chronic) Essential hypertension (Chronic) Diabetes mellitus type 2 (Chronic) On Metformin Back pain (Acute) Morbid obesity (Chronic) Hyperlipidemia (Chronic) 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 Leukocytosis. Intermittently febrile. Diverticulitis (Chronic) Recurrent. S/p high risk hemicolectomy in the setting of sepsis and hypotension 03/22/2013. Complication of a stomal leak resulting in an abdominal abscess. Readmitted to [facility] 05/03/13 emergently with sepsis syndrome and had an abdominal abscess drained. Completed rehab at [facility] with discharge most recently on after extensive dressing care of the abdominal wound with a wound VAC. Hepatitis C (Chronic) Recent negative viral count. Depression (Chronic) Vitamin D deficiency (Chronic) History of colostomy (Chronic) Medical History Anemia (05/03/13) Hemoglobin 8.2. Anemia Depression Diabetes mellitus Fall Gastroesophageal reflux disease GERD (gastroesophageal reflux disease) History of breast cancer History of hepatitis C History of incisional hernia History of renal failure Migraine Morbid obesity Osteopenia Palliative care patient Vitamin D deficiency Surgical History Colectomy H/O mastectomy Hernia Repair, Incisional x2 S/P cholecystectomy Family History Mother No problems noted. Father No problems noted. Social History Smoking/Tobacco Use Status: Former Tobacco Use Smoking risk assessment performed?: Yes Alcohol Intake: never Drug use: Never Substance use type: does not use Do you feel safe at home: Yes Do you feel safe in your relationship?: Yes Exam Const General: cooperative, comfortable and no acute distress Nutritional Appearance: obese Orientation: alert, awake and oriented x3 HENMT Head: normal to inspection, normocephalic and atraumatic Resp Effort & Inspection: normal respiratory effort, able to speak in complete sentences, no audible wheezes and no cough Other: clear pale yellow urine noted in catheter bag Skin General skin exam: no rashes or lesions noted Psych Speech and Movement: speech clear Attitude: cooperative and guarded Thought Process: impoverished Insight: limited Judgment: limited Results Last Vital Signs Temp 97.7 F 03/28/22 19:24 Pulse 94 H 03/28/22 19:24 Resp 19 03/28/22 19:24 BP 148/85 H 03/28/22 19:24 Pulse Ox 98 03/28/22 19:24 Labs Result diagrams: 03/28/22 06:35 03/28/22 06:35 Labs: Laboratory Results - last 24 hr 03/27/22 03/28/22 03/28/22 21:38 06:35 06:35 WBC 13.51 H RBC 3.34 L Hgb 8.1 L Hct 28.1 L MCV 84 MCH 24.3 L MCHC 28.8 L RDW 20.1 H Plt Count 148 MPV 9.9 Immature Gran % 1.6 Neutrophils % 87.5 Lymphocytes % 5.0 Monocytes % 5.7 Eosinophils % 0.1 Basophils % 0.1 Nucleated RBC % 0.2 Absolute Neutrophils 11.82 H Absolute Lymphocytes 0.68 L Absolute Monocytes 0.77 Absolute Eosinophils 0.01 Absolute Basophils 0.01 RBC Morphology See Below Polychromasia Present Hypochromasia 1+ Anisocytosis 2+ Microcytosis 2+ Sodium 139 Potassium 5.0 Chloride 98 Carbon Dioxide 37.7 H Anion Gap 3.3 BUN 22 H Creatinine 1.3 H Estimated GFR/1.73 m2 40.38 Glucose 456 H 350 H Calcium 9.4 Magnesium 2.2
[2022-03-28] MEDS: Simvastatin 40 MG TAB PO (21:28)
[2022-03-28] MEDS: traMADol 50 MG TAB 100 MG PO (21:28)
[2022-03-28] MEDS: Lidocaine 5% Patch 2 PATCH TP (21:29)
[2022-03-29] VITALS (12 sets, daily range): BP systolic 96–139; BP diastolic 58–79; PULSE 89–96; RESP 18–20; TEMP 36.2–36.7; O2SAT 93–100
[2022-03-29 06:31] LABS: Abs Immature Grans 0.14 10^3/uL (0.0-0.06); Absolute Basophil Count 0.04 10^3/uL (0.0-0.2); Absolute Lymphocyte Count 2.26 10^3/uL (1.2-3.4); Absolute Monocyte Count 0.78 10^3/uL (0.1-0.8); Absolute Neutrophil Count 9.42 10^3/uL (1.2-6.7); Basophils % 0.3; Eosinophils % 2.3; HCT 28.9 % (36.0-46.0); HGB 8.2 g/dL (11.2-15.7); Immature Grans % 1.1; Lymphocytes % 17.5; MCH 24.6 pg (27.0-33.0); MCHC 28.4 % (32.0-36.0); MCV 87 fL (80-95); MPV 9.9 fL (8.0-11.0); Neutrophils % 72.8; Platelet Count 167 10^3/uL (130-400); RBC 3.34 10^6/uL (3.93-5.22); RDW 20.6 % (11.7-14.6); RDW-SD 62.8 fL; WBC 12.94 10^3/uL (4.4-10.8)
[2022-03-29 06:42] LABS: BUN 31 mg/dL (7-18); CREATININE 1.3 mg/dL (0.55-1.02); Calcium 9.5 mg/dL (8.5-10.1); Chloride 99 mmol/L (98-107); Estimated GFR 40.38 (mL/min/1.73m2); Glucose 95 mg/dL (74-106); Sodium 143 mmol/L (136-145)
[2022-03-29 06:49] LABS: Anisocytosis 2+; Diff Comment RBC Morph Reviewed; Hypochromasia 1+; Polychromasia Present
[2022-03-29] MEDS: Omeprazole 20 MG CAPCR 40 MG PO (08:19)
[2022-03-29] MEDS: Sodium Zirconium Cyclosilicate 10 GM PKT PO (08:19)
[2022-03-29] MEDS: glipiZIDE 5 MG TAB 10 MG PO ×2 (08:20→17:16)
[2022-03-29] MEDS: Acetaminophen 325 MG TAB PO (08:20)
[2022-03-29] MEDS: Calcium 600mg/Vit D 200U TAB 1 TAB PO (08:20)
[2022-03-29] MEDS: Lisinopril 10 MG TAB PO (08:22)
[2022-03-29] MEDS: DULoxetine 30 MG CAP 60 MG PO ×2 (08:22→20:10)
[2022-03-29] MEDS: Metoprolol CR 25 MG TABCR PO (08:22)
[2022-03-29] MEDS: Cholecalciferol (Vitamin D3) 1,000 UNIT TAB 4000 UNITS PO (08:23)
[2022-03-29] MEDS: Magnesium Oxide 400 MG TAB PO ×2 (08:23→20:10)
[2022-03-29] MEDS: Pregabalin 50 MG CAP PO ×3 (08:23→20:10)
[2022-03-29] MEDS: Normal Saline Flush 10 ML SYR IVP ×2 (08:24→17:16)
[2022-03-29] MEDS: Aspirin 81 MG CHEW PO (08:24)
[2022-03-29] MEDS: Insulin Glargine 300 UNITS/3 ML PEN 25 UNITS SC ×2 (08:25→20:10)
--- NOTE | 2022-03-29 08:45 | PGE_ITS ---
Date of Service Date of service: 03/29/22 Time of Service: 08:45 Assessment and Plan Assessment and plan (1) CHF (congestive heart failure): Status: Chronic Assessment and plan: continue diuresis with strict I&O daily weights down 2.1 kg since yesterday (total 7 kg since 03/27/22. Repeat echo was not done today It was reported that she had gained 10 pounds after discharge from hospital 03/25 and returned 03/27 - upon reviewing the chart, she left on 03/25 @ 144 kg and returned 03/27 @143 kg. Conclusion Normal left ventricular wall thickness and chamber size.? Estimated ejection fraction is 55%.? There are no segmental wall motion abnormalities Normal right ventricular size and systolic function Both atria are normal in size Trileaflet aortic valve without stenosis or regurgitation Mild mitral annular calcification.? Mild mitral regurgitation Normal tricuspid valve with trace regurgitation.? Estimated right ventricular systolic pressure is 36 mmHg (2) IV infiltrate: Status: Acute Assessment and plan: Large infiltrate from midline left AC - the line was pulled -intact- - 2gm ceftriaxone - I called [facility] pharnacy and they advised to elevate, apply heat - they do not recommend hyaluronidase. Reviewed with Dr De Guzman, he suggested ice instead of heat. There is not an antidote. Pulses are strong, equal, RN SURGERY ICU ~3 sec, no numbess, no tingling, moves hand and fingers. Left upper arm much larger than right. (3) COPD exacerbation: Status: Acute Assessment and plan: Acute on chronic; nebs, oxygen, IS, acapella (4) Leukocytosis: Status: Acute Assessment and plan: WBC 15 on admission and trending downward- today 12.94 Lactate 1.9 - BC not done, unable to obtain by lab or ED. procal 0.3 CXR most consistent with CHF but could be respiratory source of infection urine negative continue Ceftriaxone 2 gm daily day 3/5 as she seems to be improving. (5) Chronic kidney disease: Status: Chronic Assessment and plan: stable and at baseline. BUN 16 Creat 1.2 (6) Essential hypertension: Status: Chronic Assessment and plan: chronic - stable - continue home meds (7) Diabetes mellitus type 2: Status: Chronic Assessment and plan: chronic - sliding scale, finger sticks AC & HS blood sugar poorly controlled in setting of high dose steroids. continue home diabetes management A1C was 6.9 on march 17, 2022 (8) Morbid obesity: Status: Chronic Assessment and plan: Nutrition and diabtetic educator consults (9) DVT prophylaxis: Status: Acute Assessment and plan: Enoxaparin full dose (possible PE - unable to do CT s/t venous access) (10) Discharge planning issues: Status: Acute Assessment and plan: Return to the [facility] when medically stable. palliative care following: goals of care, code status case management following for discharge planning. discussed with Dr De Guzman. Subjective Subjective Patient reports: no new complaints and feels better Interval history since last seen: Raven is doing a lot better. She is participating in her plan of care. She did not want a midline but after discussion and explanation of why it is important, she agreed. She is smiling, took a shower and is eager to go home. We discussed how she would handle being at home alone without support and that I recommended she return to the [facility] until that is all settled. She lives alone and has not help. Her boyfriend can't help her and her family is quite busy. I explained she would probably fail at home by herself, expecially with this set back. She said she has a gear cutting machine set up operator and they are coming here tomorrow - I asked if I could meet with she and the gear cutting machine set up operator when the gear cutting machine set up operator is here to help solidify a plan, she said I could. Exam Narrative Exam Narrative: ? Const General: cooperative, comfortable and no acute distress Nutritional Appearance: obese Orientation: alert, awake and oriented x3 HENMT Head: normal to inspection, normocephalic and atraumatic Resp Effort & Inspection: normal respiratory effort, able to speak in complete sentences, no audible wheezes and no cough Other: clear pale yellow urine noted in catheter bag Skin General skin exam: no rashes or lesions noted Psych Speech and Movement: speech clear Attitude: cooperative and guarded Thought Process: impoverished Insight: limited Judgment: limited Objective Last Vital Signs Temp 36.6 C 03/29/22 04:15 Pulse 89 03/29/22 07:11 Resp 18 03/29/22 07:11 BP 138/70 03/29/22 04:15 Pulse Ox 98 03/29/22 08:04 Laboratory Results - last 24 hr 03/29/22 03/29/22 06:05 06:05 WBC 12.94 H RBC 3.34 L Hgb 8.2 L Hct 28.9 L MCV 87 MCH 24.6 L MCHC 28.4 L RDW 20.6 H Plt Count 167 MPV 9.9 Immature Gran % 1.1 Neutrophils % 72.8 Lymphocytes % 17.5 Monocytes % 6.0 Eosinophils % 2.3 Basophils % 0.3 Nucleated RBC % 0.0 Absolute Neutrophils 9.42 H Absolute Lymphocytes 2.26 Absolute Monocytes 0.78 Absolute Eosinophils 0.30 Absolute Basophils 0.04 RBC Morphology See Below Polychromasia Present Hypochromasia 1+ Anisocytosis 2+ Sodium 143 Potassium 4.0 D Chloride 99 Carbon Dioxide 41.0 H Anion Gap 3.0 BUN 31 H Creatinine 1.3 H Estimated GFR/1.73 m2 40.38 Glucose 95 Calcium 9.5 Reviewed Pertinent PMH: Yes
[2022-03-29] MEDS: Ferrous Sulfate 325 MG TAB PO ×2 (10:23→21:07)
[2022-03-29] MEDS: Insulin Aspart 300 UNITS/3 ML PEN SC ×2 (12:32→17:16)
[2022-03-29] MEDS: Nystatin CREAM 30 GM TUBE TP ×3 (13:05→20:10)
[2022-03-29] MEDS: Patch Removal 2 EACH TP (13:05)
--- NOTE | 2022-03-29 13:36 | PT.INTREAT ---
Date of service: 03/29/22 Time of Service: 10:41 PT Notes Visit Reasons: Congestive heart failure Physical Therapy Inpatient Treatment Note Date: 03/29/2022 Precautions: Fall. Standard. Activity as tolerated. Subjective: Agreeable to PT consult. Needed more encouragement to increase distance during ambulation activity. Complains of pain in the R foot at about 4-5/10. Objective: General Observation:? Supine in bed.? Colostomy bag in place.? High BMI.? Telemetry monitoring in place. Mental Status: Alert and oriented as to person, place, time, and purpose. Able to pay attention, focus, and respond appropriately. Pain: Moderate pain in R foot to touch Vital Signs: Within normal limits as closely monitored by nursing staff.? Blood sugar taken right before lunch by Nurse Vanna was 268 mg/dL. Bed Mobility/Transfers: Sit to stand with minimal assist of 2 with use of B UE for support Stand to sit with minimal assist of 2 with use of B UE for support Gait: Tolerated 10-12 small steps in the morning using bariatric front-wheeled walker with full weight bearing on B LE requiring contcat guard assist of 2 and chair follow of another for safety; in the afternoon patient completed 6-8 steps from reclining chair to transport chair with assistance of .? Patient complains of fatigue and weakness in B LE as well as mild shortness of breath.? Step width wide. No loss of balance seen.? Decreased alexis.? LNAs Ana and Alexandria assisted with activity in the morning, LNAs Crystal and new CUSTOMER SUPPORT CONSULTANT int he afternoon for safety. Balance: Static Sitting: Good Dynamic Sitting: Fair Static Standing: Fair Dynamic Standing: Poor ASSESSMENT: Patient is able to walk farther with use of R ankle brace and post op shoes to B sides. Continues to be limited by pain and decreased activity tolerance from high BMI. Prognosis for c=achieving goals is fair at this time as patient requires extensive encouragement to participate in walking activity. Insistent about going home and has refused return to the [facility] or transfer to [facility] other SNF. Hoping to get assistnce from home health for day to day activities. DISCHARGE RECOMMENDATIONS: [] ? Home with no services [] [] ? Home with services [specify] [] ? Home with outpatient PT [] [X] ? SNF for continued rehabilitation.? Patient will benefit from jail facility placement for continued skilled physical therapy services in order to progress mobility level, strength, and balance in preparation for a safe discharge to home. [] ? [employer] [facility] [] [] ? SNF versus LTC based on ability to participate and progress [] TREATMENT CODE/TIME: Session 1-- 81492 x 27 minutes beginning at 10:41 AM. Session 2-- [id number] x 16 minutes beginning at 13:36 PM. CC:
[2022-03-29] MEDS: cefTRIAXone 2 GM/50 ML BAG IVPB (17:17)
[2022-03-29] MEDS: Bacitracin 1 PACKET TP (18:53)
[2022-03-29] MEDS: QUEtiapine 25 MG TAB 12.5 MG PO (20:10)
[2022-03-29] MEDS: Lidocaine 5% Patch 2 PATCH TP (21:06)
[2022-03-29] MEDS: Simvastatin 40 MG TAB PO (21:07)
[2022-03-29] MEDS: traMADol 50 MG TAB 100 MG PO (21:07)
--- NOTE | 2022-03-30 | DI.US_ITS ---
Exam(s) US EXTREMITY VENOUS BI EXAM: US EXTREMITY VENOUS BI CLINICAL HISTORY: Elevated DDimer - no venous access. TECHNIQUE: Ultrasound performed using standard protocol. COMPARISON: US US ECHOCARDIOGRAM from 03/30/2022 FINDINGS: Duplex venous ultrasound was performed according to the usual protocol. The deep veins are freely com pressible throughout and there is normal flow augmentation with manual calf compression. 2D and Doppl er evaluation are unremarkable. IMPRESSION: No evidence of deep venous thrombosis of the right or left lower extremity. DATA REPOSITORY:
[2022-03-30 02:55] VITALS: BP 112/66; PULSE 94; RESP 18; TEMP 36.5; O2SAT 97
[2022-03-30] MEDS: Acetaminophen 325 MG TAB PO (04:59)
[2022-03-30] MEDS: oxyCODONE 5 MG TAB PO ×2 (05:50→17:06)
[2022-03-30 07:45] VITALS: O2SAT 96
[2022-03-30 07:52] VITALS: BP 114/63; PULSE 91; RESP 18; TEMP 36.3; O2SAT 96
[2022-03-30] MEDS: Cholecalciferol (Vitamin D3) 1,000 UNIT TAB 4000 UNITS PO (07:54)
[2022-03-30] MEDS: glipiZIDE 5 MG TAB 10 MG PO ×2 (07:54→17:06)
[2022-03-30] MEDS: Omeprazole 20 MG CAPCR 40 MG PO ×2 (07:55→21:05)
[2022-03-30] MEDS: Calcium 600mg/Vit D 200U TAB 1 TAB PO (07:55)
[2022-03-30] MEDS: DULoxetine 30 MG CAP 60 MG PO ×2 (07:55→21:04)
[2022-03-30] MEDS: Aspirin 81 MG CHEW PO (07:55)
[2022-03-30] MEDS: Pregabalin 50 MG CAP PO ×3 (07:55→21:04)
[2022-03-30] MEDS: Metoprolol CR 25 MG TABCR PO (07:56)
[2022-03-30] MEDS: Lisinopril 10 MG TAB PO (07:56)
[2022-03-30] MEDS: Insulin Glargine 300 UNITS/3 ML PEN 25 UNITS SC ×2 (07:57→22:45)
[2022-03-30] MEDS: Magnesium Oxide 400 MG TAB PO ×2 (07:57→21:04)
[2022-03-30] MEDS: Ferrous Sulfate 325 MG TAB PO ×2 (07:57→21:05)
[2022-03-30] MEDS: Nystatin CREAM 30 GM TUBE TP ×3 (08:01→21:05)
--- NOTE | 2022-03-30 09:09 | W.PM.PROGNOT ---
Date of Service Date of service: 03/30/22 Time of Service: 16:00 Assessment and Plan Assessment and plan (1) CHF (congestive heart failure): Status: Chronic Assessment and plan: continue diuresis with strict I&O daily weights - static 137. Repeat echo was done today - not read yet Lungs are clear, distant, O2 2 LPM NC - SPO2's 98% - will ask to wean (2) IV infiltrate: Status: Acute Assessment and plan: Large infiltrate from midline left AC -arm remains hard and swollen - continue elevation and ice Pulses are strong, equal, HOUSEHOLD COORDINATOR ~3 sec, no numbess, no tingling, moves hand and fingers. Left upper arm continues to be larger than right. (3) COPD exacerbation: Status: Acute Assessment and plan: Acute on chronic; nebs, oxygen, IS, acapella (4) Leukocytosis: Status: Acute Assessment and plan: Unable to draw labs - (5) Chronic kidney disease: Status: Chronic Assessment and plan: stable and at baseline. unable to draw labs (6) Essential hypertension: Status: Chronic Assessment and plan: chronic - stable - continue home meds (7) Diabetes mellitus type 2: Status: Chronic Assessment and plan: chronic - sliding scale, finger sticks AC & HS blood sugar poorly controlled in setting of high dose steroids. continue home diabetes management A1C was 6.9 on march 17, 2022 (8) Morbid obesity: Status: Chronic Assessment and plan: Nutrition and diabtetic educator consults (9) DVT prophylaxis: Status: Acute Assessment and plan: Enoxaparin discontinued (10) Discharge planning issues: Status: Acute Assessment and plan: Return to the [facility] when medically stable. palliative care following: goals of care, code status case management following for discharge planning. discussed with Dr De Guzman. Subjective Subjective Patient reports: no new complaints and tolerating a regular diet; denies flatus, diarrhea, vomiting or fever Interval history since last seen: Raven does not want to go back to the [facility], she would like to go home. There was a family meeting regarding safety, her wishes to go home and who, if anyone, would be available to help her. See Care Mgt note. She was going to be discharged today, either to home or back to the [facility]. It was noted she had some BRB around her stoma, under the adhesive. The lab was unable to draw blood. I asked if they could do a POC H & H - the stool itself is brown; unable to get a pure specimen for a hemocult so it did test positive. I doubt it is a GI bleed, however we will get surgery to see her .We did stop the enoxapari - she did have neg BLE US today. She had an echo today - no results. Exam Narrative Exam Narrative: ? Const General: cooperative, comfortable and no acute distress Nutritional Appearance: obese Orientation: alert, awake and oriented x3 HENMT Head: normal to inspection, normocephalic and atraumatic Resp Effort & Inspection: normal respiratory effort, able to speak in complete sentences, no audible wheezes and no cough GI Inspection: normal to inspection Palpation: soft, no guarding and nontender Auscultation: normal bowel sounds Other: BRB surrounding ostomy. Other: clear pale yellow urine noted in catheter bag Skin General skin exam: no rashes or lesions noted Psych Speech and Movement: speech clear Attitude: cooperative and guarded Thought Process: impoverished Insight: limited Judgment: limited Objective Last Vital Signs Temp 36.3 C L 03/30/22 07:52 Pulse 91 H 03/30/22 07:52 Resp 18 03/30/22 07:52 BP 114/63 03/30/22 07:52 Pulse Ox 96 03/30/22 07:52 Reviewed Pertinent PMH: Yes Objective Narrative Objective Narrative: BLE US IMPRESSION: No evidence of deep venous thrombosis of the right or left lower extremity.
[2022-03-30] MEDS: Sodium Zirconium Cyclosilicate 10 GM PKT PO (09:55)
[2022-03-30] MEDS: Patch Removal 2 EACH TP (09:57)
[2022-03-30] MEDS: Insulin Aspart 300 UNITS/3 ML PEN SC ×2 (11:43→17:06)
[2022-03-30 13:29] VITALS: O2SAT 95
--- NOTE | 2022-03-30 15:18 | PT.INTREAT ---
PT Notes Visit Reasons: Congestive heart failure Inpatient Physical Therapy Treatment Note [facility] Date: 03/30/22 SUBJECTIVE: Pt states that she is refusing to go to any type of nsg home or rehab. I am going home. OBJECTIVE: [] PAIN:R foot pain BED MOBILITY/TRANSFERS Rolling L/R: mod assist Supine-sit: max of 2 Sit-stand: max of 2 Stand-sit: A of 2 GAIT Assistive Device:FWW Weight bearing:AT Assist: 2 assist Distance: 7 steps in am and 5 steps pm Deviation: AFO on right and post op shoe bilaterally. ASSESSMENT: tolerated session fair. Still requires max assist with all transfers, and all unsafe. Safety hazard noted as she tends to just sit when tired vs making sure a chair or bed is behind her. She would like other to more to help her. She is not willing to go to rehab. Plans to get home and sit in her recliner. Too tired to exercise after ambulation. PLAN: continue POC, trying to progress her safety and strength with transfers TREATMENT CODE/TIME: 25 min in am and 15 min pm. [id number]
[2022-03-30 15:39] VITALS: BP 126/73; PULSE 97; RESP 18; TEMP 37; O2SAT 98
--- NOTE | 2022-03-30 16:23 | CMPROGNOTE_ITS ---
- If Service Date Differs Date of service: 03/30/22 Time of Service: 16:23 Care Management Progress Note S/O:Raven has been medically cleared for discharge. She has a bed at the [facility] but is expressing a desire to go home. Raven is unable to ambulate without assist of 2 and then only for very short distances (6-10 steps). She lives with her elderly partner Rodolfo who is not in good health. She does have some family nearby but they are unable to assist with her care. A family meeting was held this afternoon with Rodolfo, her daughter Marcia, 2 other daughters via phone, 2 sons-in -law and a grand daughter. All of the family members were united in trying to convince aRven to return to the [facility] but she was insistent that she was going home. She became confrontational with her family and threatened to make Rodolfo move out if he refused to care for her (they live in her mobile home) and demanded that Marcia return her car, even though she is no longer able to drive. As the family was unable to change Raven's mind, plans for discharge home were being discussed when it was discovered that she had bloody stool in her ostomy. She will remain at [facility] tonight until this can be evaluated. A: Raven is a 72 year old woiman admitted on 03/29/22 with CHF. P:Raven came to [facility] from the [facility] where she had been for only a couple of days. She had transferred there for short term rehab for strengthening prior to returning home. She has expressed reluctance to return to the [facility] but her family feels strongly that she cannot care for herself at home. PT is strongly recommending SNF. She was found to have heme positive stool (bloody appearing) in her oastomy so will remain at [facility] until this is investigated.
[2022-03-30 17:59] LABS: Absolute Basophil Count 0.04 10^3/uL (0.0-0.2); Absolute Eosinophil Count 0.54 10^3/uL (0.0-0.7); Absolute Lymphocyte Count 1.22 10^3/uL (1.2-3.4); Absolute Monocyte Count 0.78 10^3/uL (0.1-0.8); Absolute Neutrophil Count 9.92 10^3/uL (1.2-6.7); Basophils % 0.3; Eosinophils % 4.3; HCT 26.3 % (36.0-46.0); HGB 7.4 g/dL (11.2-15.7); Immature Grans % 0.8; Lymphocytes % 9.7; MCH 24.8 pg (27.0-33.0); MCHC 28.1 % (32.0-36.0); MCV 88 fL (80-95); MPV 9.9 fL (8.0-11.0); Monocytes % 6.2; Neutrophils % 78.7; Platelet Count 150 10^3/uL (130-400); RBC 2.98 10^6/uL (3.93-5.22); RDW-SD 65.5 fL
[2022-03-30 18:16] LABS: Anisocytosis 2+; Diff Comment RBC Morph Reviewed
[2022-03-30 18:17] LABS: Basophilic Stippling 2+; Hypochromasia 2+; Poikilocytes 2+; Polychromasia Present
[2022-03-30 18:21] LABS: Anion Gap 3.9 mmol/L (3-11); BUN 39 mg/dL (7-18); CO2 37.1 mmol/L (21.0-32.0); CREATININE 1.4 mg/dL (0.55-1.02); Calcium 9.1 mg/dL (8.5-10.1); Chloride 98 mmol/L (98-107); Estimated GFR 37.07 (mL/min/1.73m2); Glucose 276 mg/dL (74-106); Magnesium 1.7 mg/dL (1.8-2.4); Potassium 4.6 mmol/L (3.5-5.1); Sodium 139 mmol/L (136-145)
[2022-03-30 18:42] LABS: Procalcitonin 0.3 ng/mL
[2022-03-30] MEDS: QUEtiapine 25 MG TAB 12.5 MG PO (21:05)
[2022-03-30] MEDS: traMADol 50 MG TAB 100 MG PO (22:44)
[2022-03-30] MEDS: Simvastatin 40 MG TAB PO (22:45)
[2022-03-30] MEDS: Lidocaine 5% Patch 2 PATCH TP (22:45)
[2022-03-31] VITALS (10 sets, daily range): BP systolic 114–129; BP diastolic 67–77; PULSE 82–94; RESP 1–20; TEMP 36.2–36.4; O2SAT 72–100
[2022-03-31 06:47] LABS: Absolute Basophil Count 0.03 10^3/uL (0.0-0.2); Absolute Eosinophil Count 0.51 10^3/uL (0.0-0.7); Absolute Lymphocyte Count 1.52 10^3/uL (1.2-3.4); Absolute Monocyte Count 0.61 10^3/uL (0.1-0.8); Basophils % 0.3; Eosinophils % 4.7; HCT 25.9 % (36.0-46.0); HGB 7.4 g/dL (11.2-15.7); Immature Grans % 0.9; Lymphocytes % 13.9; MCH 24.9 pg (27.0-33.0); MCHC 28.6 % (32.0-36.0); MCV 87 fL (80-95); MPV 9.8 fL (8.0-11.0); Monocytes % 5.6; Neutrophils % 74.6; Platelet Count 149 10^3/uL (130-400); RBC 2.97 10^6/uL (3.93-5.22); RDW 21.2 % (11.7-14.6); RDW-SD 66.2 fL; WBC 10.95 10^3/uL (4.4-10.8)
[2022-03-31 06:50] LABS: Absolute Neutrophil Count 8.17 10^3/uL (1.2-6.7)
[2022-03-31 07:00] LABS: Anion Gap 3.9 mmol/L (3-11); BUN 39 mg/dL (7-18); CO2 37.1 mmol/L (21.0-32.0); CREATININE 1.3 mg/dL (0.55-1.02); Chloride 100 mmol/L (98-107); Estimated GFR 40.38 (mL/min/1.73m2); Glucose 162 mg/dL (74-106); Magnesium 1.7 mg/dL (1.8-2.4); Potassium 4.3 mmol/L (3.5-5.1); Sodium 141 mmol/L (136-145)
[2022-03-31 07:45] LABS: Anisocytosis 2+; Basophilic Stippling Present; Diff Comment Diff Reviewed; Hypochromasia 2+
[2022-03-31] MEDS: Omeprazole 20 MG CAPCR 40 MG PO ×2 (07:47→20:53)
[2022-03-31] MEDS: glipiZIDE 5 MG TAB 10 MG PO ×2 (07:47→16:18)
[2022-03-31] MEDS: Aspirin 81 MG CHEW PO (07:48)
[2022-03-31] MEDS: Cholecalciferol (Vitamin D3) 1,000 UNIT TAB 4000 UNITS PO (07:48)
[2022-03-31] MEDS: Lisinopril 10 MG TAB PO (07:49)
[2022-03-31] MEDS: Ferrous Sulfate 325 MG TAB PO ×2 (07:49→20:54)
[2022-03-31] MEDS: DULoxetine 30 MG CAP 60 MG PO ×2 (07:49→20:54)
[2022-03-31] MEDS: Metoprolol CR 25 MG TABCR PO (07:49)
[2022-03-31] MEDS: Pregabalin 50 MG CAP PO ×3 (07:49→20:53)
[2022-03-31] MEDS: Calcium 600mg/Vit D 200U TAB 1 TAB PO (07:50)
[2022-03-31] MEDS: Magnesium Oxide 400 MG TAB PO ×2 (07:50→20:54)
[2022-03-31] MEDS: oxyCODONE 5 MG TAB PO ×2 (07:50→13:39)
[2022-03-31] MEDS: Insulin Glargine 300 UNITS/3 ML PEN 25 UNITS SC ×2 (08:05→20:57)
[2022-03-31] MEDS: Insulin Aspart 300 UNITS/3 ML PEN SC ×3 (08:07→17:22)
[2022-03-31] MEDS: Nystatin CREAM 30 GM TUBE TP ×3 (08:08→21:02)
--- NOTE | 2022-03-31 10:07 | PTTR_ITS ---
Date of service: 03/31/22 Time of Service: 10:07 PT Notes Visit Reasons: Congestive heart failure Physical Therapy Inpatient Treatment Note Date: 03/31/2022 Precautions: Fall. Standard. Activity as tolerated. Subjective: Continues to report fatigue, weakness and pain/tenderness in right leg and foot as well as new pain in left upper extremity 4-5/10 at rest and worst at 8/10 with weight bearing. Insistent about going home despite worsening mobility level now needing use of STEDY lift for all transfers. Objective: General Observation:? Supine in bed.? Engorged L arm from IV infiltration. Colostomy bag in place.? High BMI.? Telemetry monitoring in place. Mental Status: Alert and oriented as to person, place, time, and purpose. Able to pay attention, focus, and respond appropriately. Pain: Moderate to maximal pain and tenderness in R foot and left upper arm at 8/10 worst pain with weight bearing Vital Signs: Please see nursing staff close monitoring of vital signs Bed Mobility/Transfers: Sit to stand with moderate assist of 3 with use of B UE for support and STEDY lift Stand to sit with moderate assist of 3 with use of B UE for support and STEDY lift Gait: Unable Balance: Static Sitting: Good Dynamic Sitting: Fair Static Standing: Unable Dynamic Standing: Unable ASSESSMENT: Significant decline in mobility now needing use of STEDY lift and assist of 3 for all transfers due to inability to use L UE (from new pain from IV infil tration) for push off during sit-stand and because of continued pain/tenderness in R leg and foot. Family and significant other have expressed that they are unable and do not feel safe with providing mobility assistance for patient at home. Patient has poor prognosis thriving at home safely, has high risk for repeated falls and injury, and has increased re-hospitalization rate. Patient however is adamant about going home despite safe discharge recommendations. DISCHARGE RECOMMENDATIONS: [] ? Home with no services [] [] ? Home with services [specify] [] ? Home with outpatient PT [] [X] ? SNF for continued rehabilitation.? Patient will benefit from assisted facility placement for continued skilled physical therapy services in order to progress mobility level, strength, and balance in preparation for a safe discharge to home. [] ? High Scaler Care [] [] ? SNF versus LTC based on ability to participate and progress [] TREATMENT CODE/TIME: 73292 x 25 minutes beginning at 10:07 AM.
[2022-03-31] MEDS: Sodium Zirconium Cyclosilicate 10 GM PKT PO (10:13)
[2022-03-31] MEDS: Patch Removal 2 EACH TP (10:30)
[2022-03-31] MEDS: Albuterol/Ipratropium 3 ML UPD VIAL UPD (10:45)
[2022-03-31] MEDS: Normal Saline Flush 10 ML SYR (12:00)
--- NOTE | 2022-03-31 13:10 | SCONE_ITS ---
Date of service: 03/31/22 Time of Service: 13:10 Assessment and Plan Assessment and plan (1) Hypergranulation: Status: Acute Assessment and plan: - We will plan on fulguration of hypergranulation tissue in OR tomorrow strictly under local. Patient is not a candidate for any sedation. (2) Bleeding from colostomy stoma: Status: Acute (3) History of hepatitis C: (4) History of breast cancer: (5) GERD (gastroesophageal reflux disease): (6) Diabetes mellitus: (7) Diverticulitis: Status: Chronic (8) Enterocutaneous fistula: Status: Acute (9) Hepatitis C: Status: Chronic (10) Hyperlipidemia: Status: Chronic (11) Morbid obesity: Status: Chronic (12) Diabetes mellitus type 2: Status: Chronic (13) Essential hypertension: Status: Chronic (14) Chronic kidney disease: Status: Chronic (15) Decreased activities of daily living (ADL): Status: Acute (16) Anemia: Status: Chronic (17) CHF (congestive heart failure): Status: Chronic (18) COPD exacerbation: Status: Acute History of Present Illness Narrative: Patient was admitted on 03/27 with increased work of breathing and shortness of breath. She had just been discharged on 03/26. She was originally admitted for weakness and fall. We are asked to see her regarding bleeding around her colostomy. She has had a colostomy for many years due to blood poisoning. From the patient's description it sounds like she had a ruptured diverticula. She has no other open wounds on the abdomen. Upon removal of the colostomy bag and examination does show that she has significant hypergranulation tissue around the border at the mucocutaneous junction. These are quite friable and bleeds readily. She has had removal of granulation tissue before for bleeding.. Her BMI is 58. She does have significant CHF and [place] and airway obstruction due to obesity. She is not a candidate for surgery/colonoscopy given her BMI and cardiac status, [place] [facility] [place] We will plan on doing cauterization/fulguration of granulation tissue in the OR, but under local. Review of Systems All systems reviewed & are unremarkable except as noted in HPI and below PFSH All Active Problems Bleeding from colostomy stoma (Acute) Hypergranulation (Acute) IV infiltrate (Acute) Full code status (Acute) No able caregiver in household (Acute) Leukocytosis (Acute) DVT prophylaxis (Acute) Discharge planning issues (Acute) COPD exacerbation (Acute) CHF (congestive heart failure) (Chronic) Fall (Acute) Anemia (Chronic) Decreased activities of daily living (ADL) (Acute) Mass of left ovary (Acute) Chronic kidney disease (Chronic) Essential hypertension (Chronic) Diabetes mellitus type 2 (Chronic) On Metformin Back pain (Acute) Morbid obesity (Chronic) Hyperlipidemia (Chronic) 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 Leukocytosis. Intermittently febrile. Diverticulitis (Chronic) Recurrent. S/p high risk hemicolectomy in the setting of sepsis and hypotension 03/22/2013. Complication of a stomal leak resulting in an abdominal abscess. [place] [facility] [place] with sepsis syndrome and had an abdominal abscess drained. Completed rehab at [facility] with discharge most recently on after extensive dressing care of the abdominal wound with a wound VAC. Hepatitis C (Chronic) Recent negative viral count. Depression (Chronic) Vitamin D deficiency (Chronic) History of colostomy (Chronic) Medical History Anemia (05/03/13) Hemoglobin 8.2. Anemia Depression Diabetes mellitus Fall Gastroesophageal reflux disease GERD (gastroesophageal reflux disease) History of breast cancer History of hepatitis C History of incisional hernia History of renal failure Migraine Morbid obesity Osteopenia Palliative care patient Vitamin D deficiency Surgical History Colectomy H/O mastectomy Hernia Repair, Incisional x2 S/P cholecystectomy Family History Mother No problems noted. Father No problems noted. Social History Smoking/Tobacco Use Status: Former Tobacco Use Smoking risk assessment performed?: Yes Alcohol Intake: never Drug use: Never Substance use type: does not use Do you feel safe at home: Yes Do you feel safe in your relationship?: Yes Exam Const General: cooperative, healthy appearing and no acute distress Orientation: alert, awake and oriented x3 Resp Effort & Inspection: normal respiratory effort GI Inspection: large pannus, obesity and scar Palpation: soft Other: Colostomy in right lower quadrant. Wanted to remove the bag, the mucosa cutaneous junction, there multiple multiple areas of hypergranulation tissue. These bleed quite readily with even the slightest bit of trauma. Abdomen is soft and non-tender. She is tolerating p.o.'s. Results Last Vital Signs Temp 36.2 C L 03/31/22 08:03 Pulse 82 03/31/22 09:50 Resp 16 03/31/22 08:03 BP 118/67 03/31/22 08:03 Pulse Ox 94 03/31/22 10:30 Labs Result diagrams: 03/31/22 06:36 03/31/22 06:36 Labs: Laboratory Results - last 24 hr 03/30/22 03/30/22 03/30/22 16:59 17:45 17:45 WBC Cancelled RBC Cancelled Hgb Cancelled Hct Cancelled MCV Cancelled MCH Cancelled MCHC Cancelled RDW Cancelled Plt Count Cancelled MPV Cancelled Immature Gran % Cancelled Neutrophils % Cancelled Band Neutrophils % Cancelled Lymphocytes % Cancelled Atypical Lymphs % Cancelled Monocytes % Cancelled Eosinophils % Cancelled Basophils % Cancelled Metamyelocytes % Cancelled Myelocytes % Cancelled Promyelocytes % Cancelled Other Cells % Cancelled Nucleated RBC % Cancelled Absolute Neutrophils Cancelled Absolute Lymphocytes Cancelled Absolute Monocytes Cancelled Absolute Eosinophils Cancelled Absolute Basophils Cancelled RBC Morphology Cancelled Polychromasia Cancelled Hypochromasia Cancelled Poikilocytosis Cancelled Basophilic Stippling Cancelled Anisocytosis Cancelled Microcytosis Cancelled Macrocytosis Cancelled Spherocytes Cancelled Tear Drop Cells Cancelled Ovalocytes Cancelled Stomatocytes Cancelled [place]-Sandston Bodies Cancelled [place] Cells/Echinocytes Cancelled Acanthocytes (Spur) Cancelled Schistocytes Cancelled Sodium 139 Potassium 4.6 Chloride 98 Carbon Dioxide 37.1 H Anion Gap 3.9 BUN 39 H Creatinine 1.4 H Estimated GFR/1.73 m2 37.07 Glucose 276 H Calcium 9.1 Magnesium 1.7 L Procalcitonin 0.3 03/30/22 03/31/22 03/31/22 17:45 06:36 06:36 WBC 12.60 H 10.95 H RBC 2.98 L 2.97 L Hgb 7.4 L 7.4 L Hct 26.3 L 25.9 L MCV 88 87 MCH 24.8 L 24.9 L MCHC 28.1 L 28.6 L RDW 21.0 H 21.2 H Plt Count 150 149 MPV 9.9 9.8 Immature Gran % 0.8 0.9 Neutrophils % 78.7 74.6 Band Neutrophils % Lymphocytes % 9.7 13.9 Atypical Lymphs % Monocytes % 6.2 5.6 Eosinophils % 4.3 4.7 Basophils % 0.3 0.3 Metamyelocytes % Myelocytes % Promyelocytes % Other Cells % Nucleated RBC % 0.0 0.0 Absolute Neutrophils 9.92 H 8.17 H Absolute Lymphocytes 1.22 1.52 Absolute Monocytes 0.78 0.61 Absolute Eosinophils 0.54 0.51 Absolute Basophils 0.04 0.03 RBC Morphology See Below See Below Polychromasia Present Hypochromasia 2+ 2+ Poikilocytosis 2+ Basophilic Stippling 2+ Present Anisocytosis 2+ 2+ Microcytosis Macrocytosis Spherocytes Tear Drop Cells Ovalocytes Stomatocytes Cabrera-Sandston Bodies [place] Cells/Echinocytes Acanthocytes (Spur) Schistocytes Sodium 141 Potassium 4.3 Chloride 100 Carbon Dioxide 37.1 H Anion Gap 3.9 BUN 39 H Creatinine 1.3 H Estimated GFR/1.73 m2 40.38 Glucose 162 H Calcium 9.0 Magnesium 1.7 L Procalcitonin
--- NOTE | 2022-03-31 14:45 | CMPROGNOTE_ITS ---
- If Service Date Differs Date of service: 03/31/22 Time of Service: 14:45 Care Management Progress Note S/O: Raven remains inpatient; surgical consult today resulting in new plan for Raven to go to OR tomorrow for ostomy cauterization, per MD. CM continues to follow. A: 72 year old female admitted to [facility] CHF P: Raven reports she will be returning home upon discharge. [facility] staff and her family have been advocating for Raven to make the choice to return to the [facility] as she is currently unable to ambulate and requires max assist with stedy lift. If she is permitted to return home in observance of her patient right, it will be via EMS transport, and anticipated APS report. CM continues to follow.
--- NOTE | 2022-03-31 14:52 | PGE_ITS ---
Date of Service Date of service: 03/31/22 Time of Service: 14:52 Assessment and Plan Assessment and plan (1) CHF (congestive heart failure): Status: Chronic Assessment and plan: continue diuresis with strict I&O daily weights - static 137. Lungs are clear, distant, weaning down to RA, currently on 1 LPM (2) Bleeding from colostomy stoma: Status: Acute Assessment and plan: It was noted yesterday tereza that there was BRB on the edge of the colsomy stoma when the appliance was taken down for changing. The staff member also stated there was BRB in the bag earlier in the day. There does not appear to be a lot of blood - mostly stool, brown, coming out of stoma, there is a red ring of oozing BRB under the appliance adhesive. She declined labs originally, but agreed to have them drawn this am. her H&H is dpwm to 7.4 & 25.9 - she continues to decline an IV - reviewed the importance of IV access, she still declined. She is going to go to the OR tomorrow 04/01/22 for cauterization. Enoxaparin was discontinued 03/29/2022. (3) IV infiltrate: Status: Acute Assessment and plan: Large infiltrate from midline left AC -arm remains hard and swollen - continue elevation and ice, improving slowly Pulses are strong, equal, CERTIFIED FORKLIFT OPERATOR ~3 sec, no numbess, no tingling, moves hand and fingers. Left upper arm continues to be larger than right. (4) COPD exacerbation: Status: Acute Assessment and plan: Acute on chronic; nebs, oxygen, IS, acapella - weaning oxygen and doing well. She does not have home oxygen. (5) Leukocytosis: Status: Acute Assessment and plan: improving WBC 10.95 (6) Chronic kidney disease: Status: Chronic Assessment and plan: stable and at baseline. BUN 39, Creat 1.3 Refuses IV (7) Essential hypertension: Status: Chronic Assessment and plan: chronic - stable - continue home meds (8) Diabetes mellitus type 2: Status: Chronic Assessment and plan: chronic - sliding scale, finger sticks AC & HS blood sugar poorly controlled in setting of high dose steroids. continue home diabetes management A1C was 6.9 on march 17, 2022 (9) Morbid obesity: Status: Chronic Assessment and plan: Nutrition and diabtetic educator consults (10) DVT prophylaxis: Status: Resolved Assessment and plan: Enoxaparin discontinued (11) Discharge planning issues: Status: Acute Assessment and plan: She is refusing to return to the [facility] and only wants to go home. We have had family meetings, and the family does not want her to go home, they can not support her in terms of caring for her. They have jobs, lives, etc. They say they will not care for her. She does acknowledge that. I asked her if she understood if she goes home alone she could , she said she did understand that and is willing to take that risk. I asked if she had given up if she is interested in changing her code status or home hospice and she did not want either. She remains a full code. palliative care following: goals of care case management following for discharge planning. discussed with Dr De Guzman. Subjective Subjective Patient reports: no new complaints Exam Narrative Exam Narrative: Const General: no acute distress Nutritional Appearance: obese [facility] Head: normocephalic Ears: external ears normal and no periauricular adenopathy General nose exam: nasal mucous membranes and turbinates normal Face and sinus: sinuses nontender Mouth: oropharynx normal and moist mucous membranes Teeth and gingiva: dentition normal Eyes General: appearance normal, both eyes and all related structures Pupils: PERRL Neck Neck: normal visual inspection and no lymphadenopathy Chest Chest: normal inspection of the chest Resp Effort & Inspection: normal respiratory effort Auscultation: no rales, no rhonchi and wheezes expiratory wheezes (expiratory squeeks bilateral lower lung mary) Cardio Rate: tachycardic - 90's at rest Rhythm: regular rhythm Heart Sounds: S1 normal, S2 normal and no murmurs Pulses: radial pulses present bilaterally GI Inspection: normal to inspection Palpation: soft Skin General skin exam: no rashes or lesions noted, lots of bruises from IV sticks and lab draws on both Neuro General: patient alert, patient awake and patient oriented x3 Extrem General: no clubbing, cyanosis - + BLE edema 1/2 way up lower leg right > left Left upper arm, continues to be swollen, hard from IV infiltration; good pulse distal, CERTIFIED FORKLIFT OPERATOR ~ 3 sec. Psych Mental Status: mental status grossly normal Affect: normal affect Attitude: cooperative Const General: cooperative, healthy appearing and no acute distress Orientation: alert, awake and oriented x3 Resp Effort & Inspection: normal respiratory effort GI Inspection: large pannus, obesity and scar Palpation: soft Other: Colostomy in right lower quadrant. Wanted to remove the bag, the mucosa cutaneous junction, there multiple multiple areas of hypergranulation tissue. These bleed quite readily with even the slightest bit of trauma. Abdomen is soft and non-tender. She is tolerating p.o.'s. Objective Last Vital Signs Temp 36.2 C L 03/31/22 08:03 Pulse 82 03/31/22 09:50 Resp 16 03/31/22 08:03 BP 118/67 03/31/22 08:03 Pulse Ox 91 L 03/31/22 13:00 Laboratory Results - last 24 hr 03/30/22 03/30/22 03/30/22 16:59 17:45 17:45 WBC Cancelled RBC Cancelled Hgb Cancelled Hct Cancelled MCV Cancelled MCH Cancelled MCHC Cancelled RDW Cancelled Plt Count Cancelled MPV Cancelled Immature Gran % Cancelled Neutrophils % Cancelled Band Neutrophils % Cancelled Lymphocytes % Cancelled Atypical Lymphs % Cancelled Monocytes % Cancelled Eosinophils % Cancelled Basophils % Cancelled Metamyelocytes % Cancelled Myelocytes % Cancelled Promyelocytes % Cancelled Other Cells % Cancelled Nucleated RBC % Cancelled Absolute Neutrophils Cancelled Absolute Lymphocytes Cancelled Absolute Monocytes Cancelled Absolute Eosinophils Cancelled Absolute Basophils Cancelled RBC Morphology Cancelled Polychromasia Cancelled Hypochromasia Cancelled Poikilocytosis Cancelled Basophilic Stippling Cancelled Anisocytosis Cancelled Microcytosis Cancelled Macrocytosis Cancelled Spherocytes Cancelled Tear Drop Cells Cancelled Ovalocytes Cancelled Stomatocytes Cancelled Cabrera-Creighton Bodies Cancelled Ti Cells/Echinocytes Cancelled Acanthocytes (Spur) Cancelled Schistocytes Cancelled Sodium 139 Potassium 4.6 Chloride 98 Carbon Dioxide 37.1 H Anion Gap 3.9 BUN 39 H Creatinine 1.4 H Estimated GFR/1.73 m2 37.07 Glucose 276 H Calcium 9.1 Magnesium 1.7 L Procalcitonin 0.3 03/30/22 03/31/22 03/31/22 17:45 06:36 06:36 WBC 12.60 H 10.95 H RBC 2.98 L 2.97 L Hgb 7.4 L 7.4 L Hct 26.3 L 25.9 L MCV 88 87 MCH 24.8 L 24.9 L MCHC 28.1 L 28.6 L RDW 21.0 H 21.2 H Plt Count 150 149 MPV 9.9 9.8 Immature Gran % 0.8 0.9 Neutrophils % 78.7 74.6 Band Neutrophils % Lymphocytes % 9.7 13.9 Atypical Lymphs % Monocytes % 6.2 5.6 Eosinophils % 4.3 4.7 Basophils % 0.3 0.3 Metamyelocytes % Myelocytes % Promyelocytes % Other Cells % Nucleated RBC % 0.0 0.0 Absolute Neutrophils 9.92 H 8.17 H Absolute Lymphocytes 1.22 1.52 Absolute Monocytes 0.78 0.61 Absolute Eosinophils 0.54 0.51 Absolute Basophils 0.04 0.03 RBC Morphology See Below See Below Polychromasia Present Hypochromasia 2+ 2+ Poikilocytosis 2+ Basophilic Stippling 2+ Present Anisocytosis 2+ 2+ Microcytosis Macrocytosis Spherocytes Tear Drop Cells Ovalocytes Stomatocytes Cabrera-Creighton Bodies [place] Cells/Echinocytes Acanthocytes (Spur) Schistocytes Sodium 141 Potassium 4.3 Chloride 100 Carbon Dioxide 37.1 H Anion Gap 3.9 BUN 39 H Creatinine 1.3 H Estimated GFR/1.73 m2 40.38 Glucose 162 H Calcium 9.0 Magnesium 1.7 L Procalcitonin Reviewed Pertinent PMH: Yes
--- NOTE | 2022-03-31 15:30 | PTTR_ITS ---
PT Notes Visit Reasons: Congestive heart failure Date: 03/31/22 SUBJECTIVE: Pt states that she is extremely tired and just got back in bed some 20 minutes ago. OBJECTIVE: ? Patient is lying Supine with HOB to 20 degrees. She is sleeping but aroused easily with verbal commands. Randle catheter in place. Therapeutic Procedures ([id number] 2) Minutes =25 X HEP Review and corrective instruction X Applied appropriate level of tactile cues for targeted muscle facilitation X Applied corrective movement based instruction for stability and motor control X Patient requiring the need for continued therapeutic instruction as the nature of their movement based diagnosis is not allowing pure independent exercise involvement at this time X Other: Heel slides 2 x 10 with cues Long axis lower extremity rolling and rotation, 2 x 10 both internal and external with unilateral movement Mini bridge with gluteal set with knees at 45 degrees. x 10 Resisted long axis lower hip extension isometric x 10 ea SCapular retraction x 10 Shoulder flexion on right to end range 2 x 10 Elbow flexion x 10 bilaterally Attempt to facilitate pelvic tilt but struggled with technique. Same goes for abdominal bracing. Very poor motor control and activation through core musculature. In the future, possibly utilize biofeedback for neuro- reeducation GAIT? Refused OOB ASSESSMENT:? Patient willing to only participate in bed activities after initially refusing to get out of bed. She demonstrates pain avoidance behavior with several body areas. Lack of movement based motivation is continuing to be the driving force that is mitigating her progressions for independent living return. PLAN: continue POC, trying to progress her safety and strength with transfers TREATMENT CODE/TIME:? 25 min PM. [id number]
[2022-03-31] MEDS: Acetaminophen 325 MG TAB PO (16:18)
[2022-03-31] MEDS: Lidocaine 5% Patch 2 PATCH TP (20:52)
[2022-03-31] MEDS: Simvastatin 40 MG TAB PO (20:53)
[2022-03-31] MEDS: QUEtiapine 25 MG TAB 12.5 MG PO (20:53)
[2022-03-31] MEDS: traMADol 50 MG TAB 100 MG PO (21:12)
[2022-04-01] VITALS (19 sets, daily range): BP systolic 105–143; BP diastolic 52–84; PULSE 83–96; RESP 15–22; TEMP 36.1–37.5; O2SAT 92–98
[2022-04-01] MEDS: Nystatin CREAM 30 GM TUBE TP ×3 (04:30→19:31)
[2022-04-01] MEDS: Acetaminophen 325 MG TAB PO ×2 (05:17→19:29)
[2022-04-01 07:06] LABS: Abs Immature Grans 0.09 10^3/uL (0.0-0.06); Absolute Basophil Count 0.04 10^3/uL (0.0-0.2); Absolute Lymphocyte Count 1.43 10^3/uL (1.2-3.4); Basophils % 0.4; Eosinophils % 5.3; HCT 23.6 % (36.0-46.0); Immature Grans % 0.8; Lymphocytes % 12.7; MCH 24.7 pg (27.0-33.0); MCHC 27.5 % (32.0-36.0); MCV 90 fL (80-95); MPV 10.3 fL (8.0-11.0); Monocytes % 6.1; Neutrophils % 74.7; Platelet Count 143 10^3/uL (130-400); RBC 2.63 10^6/uL (3.93-5.22); RDW 21.2 % (11.7-14.6); RDW-SD 68.4 fL; WBC 11.23 10^3/uL (4.4-10.8)
[2022-04-01 07:15] LABS: Anion Gap 2.1 mmol/L (3-11); BUN 44 mg/dL (7-18); CO2 38.9 mmol/L (21.0-32.0); CREATININE 1.6 mg/dL (0.55-1.02); Chloride 100 mmol/L (98-107); Estimated GFR 31.78 (mL/min/1.73m2); Glucose 202 mg/dL (74-106); Magnesium 1.7 mg/dL (1.8-2.4); Potassium 4.3 mmol/L (3.5-5.1); Sodium 141 mmol/L (136-145)
[2022-04-01 07:17] LABS: Absolute Monocyte Count 0.69 10^3/uL (0.1-0.8); Absolute Neutrophil Count 8.39 10^3/uL (1.2-6.7)
[2022-04-01 07:18] LABS: HGB 6.5 g/dL (11.2-15.7)
[2022-04-01 07:34] LABS: Anisocytosis 2+; Diff Comment RBC Morph Reviewed; Hypochromasia 1+
[2022-04-01] MEDS: Aspirin 81 MG CHEW PO (07:34)
[2022-04-01] MEDS: Omeprazole 20 MG CAPCR 40 MG PO ×2 (07:34→19:29)
[2022-04-01] MEDS: Cholecalciferol (Vitamin D3) 1,000 UNIT TAB 4000 UNITS PO (07:34)
[2022-04-01] MEDS: glipiZIDE 5 MG TAB 10 MG PO ×2 (07:34→16:13)
[2022-04-01] MEDS: Pregabalin 50 MG CAP PO ×3 (07:35→19:30)
[2022-04-01] MEDS: Magnesium Oxide 400 MG TAB PO ×2 (07:35→19:29)
[2022-04-01] MEDS: Calcium 600mg/Vit D 200U TAB 1 TAB PO (07:35)
[2022-04-01] MEDS: DULoxetine 30 MG CAP 60 MG PO ×2 (07:35→19:28)
[2022-04-01] MEDS: Metoprolol CR 25 MG TABCR PO (07:36)
[2022-04-01] MEDS: Ferrous Sulfate 325 MG TAB PO ×2 (07:36→19:29)
[2022-04-01] MEDS: Lisinopril 10 MG TAB PO (07:36)
[2022-04-01] MEDS: Insulin Glargine 300 UNITS/3 ML PEN 25 UNITS SC ×2 (08:19→20:45)
[2022-04-01] MEDS: Insulin Aspart 300 UNITS/3 ML PEN SC ×3 (08:21→16:42)
--- NOTE | 2022-04-01 09:10 | CMPROGNOTE_ITS ---
- If Service Date Differs Date of service: 04/01/22 Time of Service: 09:10 Care Management Progress Note S/O: Raven went to the OR this morning for cauterization of the skin surrounding her stoma. She also had a midline catheter placed in surgery by anesthesia in order to receive blood. Her H&H was 6.5 and 23.6 this morning. It had previously been 7.4 and 25.9. Additionally, her WBC remains elevated at 11.23 and her BUN and creatinine are slightly increased although she does have chronic kidney disease. A: 72 year old female admitted to [facility] with CHF P: Raven reports she will be returning home upon discharge. [facility] staff and her family have been advocating for Raven to make the choice to return to the [facility] as she is currently unable to ambulate and requires max assist with stedy lift. If she is permitted to return home in observance of her patient right, it will be via EMS transport, and anticipated APS report. CM continues to follow.
[2022-04-01] MEDS: Patch Removal 2 EACH TP (09:42)
[2022-04-01] MEDS: Normal Saline Flush 10 ML SYR ×2 (11:15→13:45)
--- NOTE | 2022-04-01 11:31 | W.ANESVAS ---
Midline Placement Date Performed: 04/01/22 Procedure Time: 11:20 Requesting Provider: Marcy Mart Procedure Location: Operating Room Sedation Given (Indicate Dose Given): No Sedation given Patient Mental Status: Awake Sterility: Hand Hygiene, Surgical Cap, Surgical Mask, Sterile Gloves, Sterile Drape/Sheet and Chlorhexidine Laterality: Left Insertion Site: Other Midline Device: PowerGlide Pro 20G Catheter Length: 10 cm Midline Procedure Procedure: 1% Lidocaine to skin and subcutaneous tissue with 25g needle and Vessel accessed with needle Dressing: Tegaderm Applied and Other Blood Return: Present Flushes: Easily Ultrasound: Sterile probe cover and gel used Ultrasound Image Saved?: Yes Number of Attempts (See previous attempts in note section): 1 Procedure Tolerated: No Complications Procedure Outcome: Successful Procedure Comment:: Was consulted by hospitalist and general surgery in regards to establishing vascular access. peripheral scanning with US performed, vessels identified peripherally but they where too deep or not anatomically able to be accessed due to subcutaneous tissues being in the way. Left and right neck scanned with no easily identifiable IJ or EJ. The question of an IJ may have had clot in it, but due to movement with respirations unable to confirm with compression or doppler. The chest was scanned and a small vessel at ~ 2 cm on the left chest was identified, it is unclear if this is the axillary vein or another vessel. A 10 cm midline catheter was placed without difficulty. There was no pulsitle blood noted, and there was good blood flow fall with gravity with IV tubing, and with agitated saline flush it was noted in the RV on PSLAX view. The line was then sutured in place by Barron. Performed By: Franck Ambrocio
[2022-04-01] MEDS: Bupivacaine 0.25% Pres-Free W/EPI 30 ML VIAL (11:50)
--- NOTE | 2022-04-01 13:15 | W.PM.OP ---
Date of service: 04/01/22 Time of Service: 13:15 Operative Note Operative Note DATE OF PROCEDURE: 04/01/22 PRE-OP DIAGNOSIS: fulgeration of hypergranulation tissue/venous access POST-OP DIAGNOSIS: same SURGEON: Marcy Mart ANESTHESIA TYPE: Local By Surgeon Refer to Anesthesia Record ESTIMATED BLOOD LOSS: 5 PATHOLOGY: none sent COMPLICATIONS: None Patient was transported to: same day Patient's condition: stable Procedure Description: - Vascular access was obtained by LANEY Dietz. Please see his op report for placement of . We will provide care for this line as a central line, not as a midline. -Patient then was turned towards the hypergranulation tissue colostomy. Patient had 60 g of Emla applied prior to the procedure. This is removed. The mucocutaneous junction was cleansed with Betadine. Fulguration of the areas of hypergranulation was carried out. Floseal was applied. There was one area that continued to have some oozing and a single stitch of 3-0 Chromicl was placed. Colostomy appliance was reapplied. Patient tolerated procedure well without complication and transferred to cover room in stable condition.
--- NOTE | 2022-04-01 13:42 | PT.INTREAT ---
PT Notes Visit Reasons: Congestive heart failure Inpatient Physical Therapy Treatment Note [facility] Date: 03/31/22 SUBJECTIVE: I'm about to have surgery. I feel ok but I am not getting out of bed. I am about to get blood and they told me I had to stay in bed. OBJECTIVE: [] Held treatment this am as pt having a surgical procedure. THEREX: In pm session, pt preformed a global LE strengthening routine consisting of AP's, glut sets with attempts of bridging, SLR, hip ABD and heel slides, as well as scap retraction. All ex performed 10x. ASSESSMENT: pt quite sleepy and had a difficult time focusing on exercises. Redirection and encouragement required a few times t/o session. PLAN: will continue to progress her strength and functional mobility following PT POC. TREATMENT CODE/TIME: 15 min [id number]
--- NOTE | 2022-04-01 13:57 | PGE_ITS ---
Date of Service Date of service: 04/01/22 Time of Service: 13:57 Assessment and Plan Assessment and plan (1) CHF (congestive heart failure): Status: Chronic Assessment and plan: continue diuresis with strict I&O daily weights - static 138. Lungs are clear, distant, weaned oxygen down to 1 lpm, unable to get below 1 lpm without SPO2 below 90%.currently continued on 1 LPM (2) Bleeding from colostomy stoma: Status: Acute Assessment and plan: Went to the OR w surgery for cautery; midline placed left upper chest by anesthesia while there. (3) Anemia: Assessment and plan: H&H 6.5 & 23 - type and screen done - 2 units of blood transfused - will recheck this tereza. (4) IV infiltrate: Status: Acute Assessment and plan: Large infiltrate from midline left AC -arm remains hard and swollen - continue elevation and continues to improve. Pullses are strong, equal, BUSINESS SUPPORT ASSISTANT ~3 sec, no numbess, no tingling, moves hand and fingers. Left upper arm continues to be larger than right. (5) COPD exacerbation: Status: Acute Assessment and plan: Acute on chronic; nebs, oxygen, IS, acapella - weaning oxygen and doing well. She does not have home oxygen, she can't get below 1 lpm here; she will have to go home with oxygen. (6) Leukocytosis: Status: Acute Assessment and plan: WBC 11.23 (7) Chronic kidney disease: Status: Chronic Assessment and plan: Worsening - BUN 44, Creat 1.6 Lisinopril held (8) Essential hypertension: Status: Chronic Assessment and plan: chronic - stable - lisinopril held (9) Diabetes mellitus type 2: Status: Chronic Assessment and plan: chronic - sliding scale, finger sticks AC & HS A1C was 6.9 on march 17, 2022 (10) Morbid obesity: Status: Chronic Assessment and plan: Nutrition and diabtetic educator consults (11) DVT prophylaxis: Status: Resolved Assessment and plan: Enoxaparin discontinued SCD's (12) Discharge planning issues: Status: Acute Assessment and plan: She is refusing to return to the [facility] and only wants to go home. We have had family meetings, and the family does not want her to go home, they can not support her in terms of caring for her. They have jobs, lives, etc. They say they will not care for her. She does acknowledge that. I asked her if she understood if she goes home alone she could , she said she did understand that and is willing to take that risk. I asked if she had given up if she is interested in changing her code status or home hospice and she did not want either. She remains a full code. palliative care following: goals of care case management following for discharge planning. discussed with Dr De Guzman. Subjective Subjective Patient reports: no new complaints and tolerating a regular diet Interval history since last seen: Raven went to the OR to have her colostomy edges cauterized by surgery. While there a midline was placed in her left upper chest area by anesthesia. Exam Narrative Exam Narrative: ? Const General: cooperative, comfortable and no acute distress Nutritional Appearance: obese Orientation: alert, awake and oriented x3 HENMT Head: normal to inspection, normocephalic and atraumatic Resp Effort & Inspection: normal respiratory effort, able to speak in complete sentences, no audible wheezes and no cough GI Inspection: normal to inspection Palpation: soft, no guarding and nontender Auscultation: normal bowel sounds Other: BRB surrounding ostomy. Other: clear pale yellow urine noted in catheter bag Skin General skin exam: no rashes or lesions noted Psych Speech and Movement: speech clear Attitude: cooperative and guarded Thought Process: impoverished Insight: limited Judgment: limited Objective Last Vital Signs Temp 36.8 C 04/01/22 13:50 Pulse 91 H 04/01/22 13:50 Resp 20 04/01/22 13:50 BP 116/55 L 04/01/22 13:50 Pulse Ox 97 04/01/22 13:50 Laboratory Results - last 24 hr 04/01/22 04/01/22 04/01/22 06:20 06:20 09:15 WBC 11.23 H RBC 2.63 L Hgb 6.5 L* Hct 23.6 L MCV 90 MCH 24.7 L MCHC 27.5 L RDW 21.2 H Plt Count 143 MPV 10.3 Immature Gran % 0.8 Neutrophils % 74.7 Lymphocytes % 12.7 Monocytes % 6.1 Eosinophils % 5.3 Basophils % 0.4 Nucleated RBC % 0.0 Absolute Neutrophils 8.39 H Absolute Lymphocytes 1.43 Absolute Monocytes 0.69 Absolute Eosinophils 0.60 Absolute Basophils 0.04 RBC Morphology See Below Hypochromasia 1+ Anisocytosis 2+ Sodium 141 Potassium 4.3 Chloride 100 Carbon Dioxide 38.9 H Anion Gap 2.1 L BUN 44 H Creatinine 1.6 H Estimated GFR/1.73 m2 31.78 Glucose 202 H Calcium 9.0 Magnesium 1.7 L Patient ABO/Rh A Positive Antibody Screen NEGATIVE Crossmatch See Detail Reviewed Pertinent PMH: Yes
[2022-04-01] MEDS: Sodium Zirconium Cyclosilicate 10 GM PKT PO (14:17)
[2022-04-01] MEDS: oxyCODONE 5 MG TAB PO (16:13)
[2022-04-01] MEDS: Normal Saline Flush 10 ML SYR IVP ×5 (16:14→21:47)
[2022-04-01] MEDS: Furosemide 20 MG/2 ML VIAL IVP (16:15)
[2022-04-01] MEDS: QUEtiapine 25 MG TAB 12.5 MG PO (19:30)
[2022-04-01] MEDS: MAGNESIUM SULFATE 2 GM/50 ML BAG IVPB (20:44)
[2022-04-01] MEDS: Furosemide 40 MG/4 ML VIAL IVP (21:47)
[2022-04-01] MEDS: Simvastatin 40 MG TAB PO (21:47)
[2022-04-01] MEDS: traMADol 50 MG TAB 100 MG PO (21:47)
[2022-04-01] MEDS: Lidocaine 5% Patch 2 PATCH TP (21:48)
--- NOTE | 2022-04-01 23:24 | NUR.NOTE ---
Nursing Note: Pt was difficult to arouse for 2200 medications, had to be reawoken several times. kept closing eyes and falling back asleep. not answering questions appropriately, delayed responses, not able to state where she was. Vitals stable (see chart). charge nurse notified and came into room to see patient. patient then awoke more, able to keep eyes open, and answered questions appropriately after hot car charger Chris emphasized importance of cooperation. pt now appropriate but drowsy.
[2022-04-02 00:29] LABS: HCT 30.3 % (36.0-46.0)
[2022-04-02 03:22] VITALS: BP 106/65; PULSE 91; RESP 16; TEMP 36.6; O2SAT 92
[2022-04-02 06:50] LABS: Abs Immature Grans 0.13 10^3/uL (0.0-0.06); Absolute Basophil Count 0.05 10^3/uL (0.0-0.2); Absolute Eosinophil Count 0.71 10^3/uL (0.0-0.7); Absolute Lymphocyte Count 1.16 10^3/uL (1.2-3.4); Absolute Monocyte Count 0.68 10^3/uL (0.1-0.8); Basophils % 0.4; Eosinophils % 6.2; HCT 31.7 % (36.0-46.0); HGB 9.5 g/dL (11.2-15.7); Immature Grans % 1.1; Lymphocytes % 10.2; MCH 26.3 pg (27.0-33.0); MCV 88 fL (80-95); MPV 9.5 fL (8.0-11.0); Neutrophils % 76.1; Platelet Count 173 10^3/uL (130-400); RBC 3.61 10^6/uL (3.93-5.22); RDW 19.1 % (11.7-14.6); RDW-SD 60.6 fL; WBC 11.38 10^3/uL (4.4-10.8)
[2022-04-02 06:52] LABS: Absolute Neutrophil Count 8.66 10^3/uL (1.2-6.7)
[2022-04-02 07:06] LABS: BUN 41 mg/dL (7-18); CREATININE 1.5 mg/dL (0.55-1.02); Calcium 9.5 mg/dL (8.5-10.1); Chloride 102 mmol/L (98-107); Estimated GFR 34.23 (mL/min/1.73m2); Glucose 155 mg/dL (74-106); Potassium 4.4 mmol/L (3.5-5.1); Sodium 143 mmol/L (136-145)
[2022-04-02] MEDS: Aspirin 81 MG CHEW PO (08:21)
[2022-04-02] MEDS: Ferrous Sulfate 325 MG TAB PO ×2 (08:22→20:09)
[2022-04-02] MEDS: Cholecalciferol (Vitamin D3) 1,000 UNIT TAB 4000 UNITS PO (08:22)
[2022-04-02] MEDS: Omeprazole 20 MG CAPCR 40 MG PO ×2 (08:22→20:10)
[2022-04-02] MEDS: oxyCODONE 5 MG TAB PO ×2 (08:22→14:07)
[2022-04-02] MEDS: Pregabalin 50 MG CAP PO ×3 (08:22→20:10)
[2022-04-02] MEDS: Calcium 600mg/Vit D 200U TAB 1 TAB PO (08:22)
[2022-04-02] MEDS: DULoxetine 30 MG CAP 60 MG PO ×2 (08:22→20:10)
[2022-04-02] MEDS: glipiZIDE 5 MG TAB 10 MG PO ×2 (08:22→17:05)
[2022-04-02] MEDS: Magnesium Oxide 400 MG TAB PO ×2 (08:23→20:10)
[2022-04-02] MEDS: Acetaminophen 325 MG TAB PO ×3 (08:23→18:06)
[2022-04-02] MEDS: Normal Saline Flush 10 ML SYR IVP ×2 (08:23→20:09)
[2022-04-02] MEDS: Metoprolol CR 25 MG TABCR PO (08:23)
[2022-04-02] MEDS: Insulin Aspart 300 UNITS/3 ML PEN SC ×3 (08:24→17:05)
[2022-04-02] MEDS: Insulin Glargine 300 UNITS/3 ML PEN 25 UNITS SC ×2 (08:24→21:28)
[2022-04-02] MEDS: Nystatin CREAM 30 GM TUBE TP ×2 (08:25→20:09)
[2022-04-02] MEDS: Sodium Zirconium Cyclosilicate 10 GM PKT PO (10:17)
[2022-04-02] MEDS: Patch Removal 2 EACH TP (10:18)
--- NOTE | 2022-04-02 10:44 | PT.INTREAT ---
Date of service: 04/02/22 Time of Service: 10:44 PT Notes Visit Reasons: Congestive heart failure Physical Therapy Inpatient Treatment Note Date: 04/02/2022 Precautions: Fall. Standard. Activity as tolerated. Subjective: Adamant about staying in bed as she states that she has 8/10 pain in her R arm and R leg despite repeated persuasion and education from this provider. She states that if she does go home, she will be able to just get up and move as she needs to. She states that she is only willing to move her feetand legs for me this morning. Expressed that she has a hrd spot in her stoma which may require another surgery [place] [facility] [place] Patient was informed that her report regarding the stoma will be relayed to Nurse Plascencia. Objective: General Observation:? Supine in bed.? Engorged L arm from IV infiltration.? Colostomy bag in place.? High BMI.? Telemetry monitoring in place. Mental Status: Alert and oriented as to person, place, time, and purpose. Pain: Moderate to maximal pain and tenderness in R foot and left upper arm at 8/10 at rest Vital Signs: Please see nursing staff close monitoring of vital signs THERA EX: Supine heel slides x10 R arm combined FADIR/EABER x 10 Mini bridges (REFUSED) Hip abd/add (REFDUSED) DBE x 5 Bed Mobility/Transfers: Patient refused to be sat at edge of bed despite several attempts of PT Gait: Patient refused to be sat at edge of bed despite several attempts of PT to use STEDY lift Balance: Static Sitting: Unable Dynamic Sitting: Unable Static Standing: Unable Dynamic Standing: Unable ASSESSMENT: Explained to client that doing unresisted bed exercises is not enough to regain her strength back. Lacks motivation. Non-compliant with mobility retraining. Pain in L arm and R LE and worsening depression on top of high BMI all limit achievement of goals at this time. Patient has poor prognosis for thriving at home safely,? has high risk for repeated falls and injury,? and has increased re-hospitalization rate.?Will discuss patient goals again in the next session as said goals do not align with what she is willing to do during therapy. Will plan on discontinuation from services if she remains unwilling to work on mobility retraining, i.e. supine<>sit, sit<>stand, transfers, and short distance ambulation for bed<>chair transfers. WIll update CM about plans as needed. DISCHARGE RECOMMENDATIONS: [] ? Home with no services [] [] ? Home with services [specify] [] ? Home with outpatient PT [] [X] ? SNF for continued rehabilitation.? Patient will benefit from alf facility placement for continued skilled physical therapy services in order to progress mobility level, strength, and balance in preparation for a safe discharge to home. [] ? [facility] [] [] ? SNF versus LTC based on ability to participate and progress [] TREATMENT CODE/TIME: 29440 x 10, 37149 x 20 minutes beginning at 10:44 AM.
[2022-04-02 11:26] VITALS: BP 123/70; PULSE 83; RESP 20; TEMP 36; O2SAT 94
--- NOTE | 2022-04-02 11:55 | W.PM.PROGNOT ---
Date of Service Date of service: 04/02/22 Time of Service: 11:55 Assessment and Plan Assessment and plan (1) Hypergranulation: Status: Acute Assessment and plan: - Change colostomy bag as required. Try to avoid frequent changes of ostomy wafer -Patient does have a chromic stitch in under the wafer. This will fall out on its own and does not require removal -Stable for discharge from surgical standpoint. Will reevaluate as necessary (2) Bleeding from colostomy stoma: Status: Acute (3) Anemia: Status: Chronic Assessment and plan: Hemoglobin 9 today (4) IV infiltrate: Status: Acute Assessment and plan: Arm is is still firm. There is ecchymosis and swelling. There is no redness or signs of acute infection (5) Need for intravenous access: Status: Acute Assessment and plan: Line site is clean dry intact and functioning well. Will follow peripherally. For flushing purposes, treat as central line. Objective Last Vital Signs Temp 36 C L 04/02/22 11:26 Pulse 83 04/02/22 11:26 Resp 20 04/02/22 11:26 BP 123/70 04/02/22 11:26 Pulse Ox 94 04/02/22 11:26 Laboratory Results - last 24 hr 04/01/22 04/02/22 04/02/22 09:15 00:18 06:15 WBC RBC Hgb 9.0 L D Hct 30.3 L MCV MCH MCHC RDW Plt Count MPV Immature Gran % Neutrophils % Lymphocytes % Monocytes % Eosinophils % Basophils % Nucleated RBC % Absolute Neutrophils Absolute Lymphocytes Absolute Monocytes Absolute Eosinophils Absolute Basophils Sodium 143 Potassium 4.4 Chloride 102 Carbon Dioxide 39.0 H Anion Gap 2.0 L BUN 41 H Creatinine 1.5 H Estimated GFR/1.73 m2 34.23 Glucose 155 H Calcium 9.5 Magnesium 2.0 Patient ABO/Rh A Positive Antibody Screen NEGATIVE Crossmatch See Detail 04/02/22 06:15 WBC 11.38 H RBC 3.61 L Hgb 9.5 L Hct 31.7 L MCV 88 MCH 26.3 L MCHC 30.0 L D RDW 19.1 H Plt Count 173 MPV 9.5 Immature Gran % 1.1 Neutrophils % 76.1 Lymphocytes % 10.2 Monocytes % 6.0 Eosinophils % 6.2 Basophils % 0.4 Nucleated RBC % 0.0 Absolute Neutrophils 8.66 H Absolute Lymphocytes 1.16 L Absolute Monocytes 0.68 Absolute Eosinophils 0.71 H Absolute Basophils 0.05 Sodium Potassium Chloride Carbon Dioxide Anion Gap BUN Creatinine Estimated GFR/1.73 m2 Glucose Calcium Magnesium Patient ABO/Rh Antibody Screen Crossmatch
[2022-04-02 15:23] VITALS: BP 124/73; PULSE 84; RESP 24; TEMP 36.6; O2SAT 94
--- NOTE | 2022-04-02 17:32 | W.PM.PROGNOT ---
Date of Service Date of service: 04/02/22 Time of Service: 17:32 Assessment and Plan Assessment and plan (1) CHF (congestive heart failure): Status: Chronic Assessment and plan: continue diuresis with strict I&O daily weights - static 136. Lungs are clear, distant, weaned oxygen down to 1 lpm, unable to get below 1 lpm without SPO2 below 90%.currently continued on 1 LPM (2) IV infiltrate: Status: Acute Assessment and plan: Arm is is still firm. There is ecchymosis and swelling. There is no redness or signs of acute infection, she does still c/o pain to that arm, will continue ice and elevation, she has prn pain medication available to her (3) COPD exacerbation: Status: Acute Assessment and plan: Acute on chronic; nebs, oxygen, IS, acapella - weaning oxygen and doing well. She does not have home oxygen, she continues to need 1 lpm here; she will have to go home with oxygen. (4) Bleeding from colostomy stoma: Status: Resolved Assessment and plan: Went to the OR w surgery for cautery 04/01/2022; no further bleeding (5) Leukocytosis: Status: Acute Assessment and plan: WBC 11.38 (6) Chronic kidney disease: Status: Chronic Assessment and plan: Worsening - BUN 44, Creat 1.6 Lisinopril held (7) Essential hypertension: Status: Chronic Assessment and plan: chronic - stable - lisinopril held (8) Diabetes mellitus type 2: Status: Chronic Assessment and plan: chronic - sliding scale, finger sticks AC & HS A1C was 6.9 on march 17, 2022 (9) Morbid obesity: Status: Chronic Assessment and plan: Nutrition and diabtetic educator consults (10) DVT prophylaxis: Status: Resolved Assessment and plan: Enoxaparin discontinued SCD's / TEDS, if H&H is stable tomorrow, will add heparin sq (11) Discharge planning issues: Status: Acute Assessment and plan: She continues to want to go home tomorrow, despite family not willing to take her home. She remains a full code. palliative care following: goals of care case management following for discharge planning discussed with Dr Luna Subjective Subjective Patient reports: no new complaints, tolerating a regular diet and afebrile; denies diarrhea, nausea, vomiting or shortness of breath Interval history since last seen: Family was in again today. They continue to not want to take her home, but are making plans to take her home because they know she won't go anywhere else but home. She has had no bleeding from her colostomy. Her H&H has improved 9.5 and 31 - we will check it again tomorrow 04/03/22 - She states she continues to feel tired, but does feel better than yesterday. Little to no work with PT. Exam Narrative Exam Narrative: ? Const General: cooperative, comfortable and no acute distress Nutritional Appearance: obese Orientation: alert, awake and oriented x3 HENMT Head: normal to inspection, normocephalic and atraumatic Resp Effort & Inspection: normal respiratory effort, able to speak in complete sentences, no audible wheezes and no cough GI Inspection: normal to inspection Palpation: soft, no guarding and nontender Auscultation: normal bowel sounds Other: BRB surrounding ostomy. Other: clear pale yellow urine noted in catheter bag Skin General skin exam: no rashes or lesions noted Psych Speech and Movement: speech clear Attitude: cooperative and guarded Thought Process: impoverished Insight: limited Judgment: limited Objective Last Vital Signs Temp 36.6 C 04/02/22 15:23 Pulse 84 04/02/22 15:23 Resp 24 04/02/22 15:23 BP 124/73 04/02/22 15:23 Pulse Ox 94 04/02/22 15:23 Laboratory Results - last 24 hr 04/01/22 04/02/22 04/02/22 09:15 00:18 06:15 WBC RBC Hgb 9.0 L D Hct 30.3 L MCV MCH MCHC RDW Plt Count MPV Immature Gran % Neutrophils % Lymphocytes % Monocytes % Eosinophils % Basophils % Nucleated RBC % Absolute Neutrophils Absolute Lymphocytes Absolute Monocytes Absolute Eosinophils Absolute Basophils Sodium 143 Potassium 4.4 Chloride 102 Carbon Dioxide 39.0 H Anion Gap 2.0 L BUN 41 H Creatinine 1.5 H Estimated GFR/1.73 m2 34.23 Glucose 155 H Calcium 9.5 Magnesium 2.0 Crossmatch See Detail 04/02/22 06:15 WBC 11.38 H RBC 3.61 L Hgb 9.5 L Hct 31.7 L MCV 88 MCH 26.3 L MCHC 30.0 L D RDW 19.1 H Plt Count 173 MPV 9.5 Immature Gran % 1.1 Neutrophils % 76.1 Lymphocytes % 10.2 Monocytes % 6.0 Eosinophils % 6.2 Basophils % 0.4 Nucleated RBC % 0.0 Absolute Neutrophils 8.66 H Absolute Lymphocytes 1.16 L Absolute Monocytes 0.68 Absolute Eosinophils 0.71 H Absolute Basophils 0.05 Sodium Potassium Chloride Carbon Dioxide Anion Gap BUN Creatinine Estimated GFR/1.73 m2 Glucose Calcium Magnesium Crossmatch Reviewed Pertinent PMH: Yes
[2022-04-02 19:07] VITALS: BP 118/68; PULSE 83; RESP 22; TEMP 36; O2SAT 94
[2022-04-02] MEDS: traMADol 50 MG TAB 100 MG PO (20:09)
[2022-04-02] MEDS: QUEtiapine 25 MG TAB 12.5 MG PO (20:10)
[2022-04-02] MEDS: Simvastatin 40 MG TAB PO (20:10)
[2022-04-02] MEDS: Lidocaine 5% Patch 2 PATCH TP (21:28)
[2022-04-02 23:03] VITALS: BP 118/68; PULSE 83; RESP 22; TEMP 36.8; O2SAT 94
[2022-04-03 03:22] VITALS: BP 118/64; PULSE 83; RESP 20; TEMP 36.7; O2SAT 94
[2022-04-03] MEDS: oxyCODONE 5 MG TAB PO ×2 (04:48→10:59)
[2022-04-03] MEDS: Acetaminophen 325 MG TAB PO ×3 (04:48→13:57)
[2022-04-03 06:53] LABS: Abs Immature Grans 0.11 10^3/uL (0.0-0.06); Absolute Basophil Count 0.03 10^3/uL (0.0-0.2); Absolute Eosinophil Count 0.71 10^3/uL (0.0-0.7); Absolute Lymphocyte Count 1.28 10^3/uL (1.2-3.4); Absolute Monocyte Count 0.69 10^3/uL (0.1-0.8); Absolute Neutrophil Count 6.23 10^3/uL (1.2-6.7); Basophils % 0.3; Eosinophils % 7.8; HCT 31.6 % (36.0-46.0); HGB 9.3 g/dL (11.2-15.7); Immature Grans % 1.2; Lymphocytes % 14.1; MCH 26.7 pg (27.0-33.0); MCHC 29.4 % (32.0-36.0); MCV 91 fL (80-95); MPV 9.5 fL (8.0-11.0); Monocytes % 7.6; Platelet Count 173 10^3/uL (130-400); RBC 3.48 10^6/uL (3.93-5.22); RDW 19.6 % (11.7-14.6); RDW-SD 64.6 fL; WBC 9.05 10^3/uL (4.4-10.8)
[2022-04-03 07:11] LABS: Anion Gap 2.4 mmol/L (3-11); BUN 39 mg/dL (7-18); CO2 40.6 mmol/L (21.0-32.0); CREATININE 1.4 mg/dL (0.55-1.02); Calcium 9.3 mg/dL (8.5-10.1); Chloride 101 mmol/L (98-107); Estimated GFR 37.07 (mL/min/1.73m2); Glucose 142 mg/dL (74-106); Magnesium 1.9 mg/dL (1.8-2.4); Potassium 4.4 mmol/L (3.5-5.1); Sodium 144 mmol/L (136-145)
[2022-04-03] MEDS: Omeprazole 20 MG CAPCR 40 MG PO (07:31)
[2022-04-03] MEDS: glipiZIDE 5 MG TAB 10 MG PO (07:31)
[2022-04-03] MEDS: Ferrous Sulfate 325 MG TAB PO (07:31)
[2022-04-03 07:53] VITALS: BP 101/63; PULSE 88; RESP 20; TEMP 36.1; O2SAT 95
[2022-04-03] MEDS: Insulin Glargine 300 UNITS/3 ML PEN 25 UNITS SC (08:40)
[2022-04-03] MEDS: Normal Saline Flush 10 ML SYR IVP (08:40)
[2022-04-03] MEDS: Magnesium Oxide 400 MG TAB PO (08:41)
[2022-04-03] MEDS: Aspirin 81 MG CHEW PO (08:41)
[2022-04-03] MEDS: Nystatin CREAM 30 GM TUBE TP ×2 (08:41→13:57)
[2022-04-03] MEDS: Cholecalciferol (Vitamin D3) 1,000 UNIT TAB 4000 UNITS PO (08:42)
[2022-04-03] MEDS: Pregabalin 50 MG CAP PO ×2 (08:42→13:57)
[2022-04-03] MEDS: Metoprolol CR 25 MG TABCR PO (08:42)
[2022-04-03] MEDS: DULoxetine 30 MG CAP 60 MG PO (08:42)
[2022-04-03] MEDS: Calcium 600mg/Vit D 200U TAB 1 TAB PO (08:42)
[2022-04-03] MEDS: Patch Removal 2 EACH TP (10:23)
[2022-04-03] MEDS: Sodium Zirconium Cyclosilicate 10 GM PKT PO (10:23)
--- NOTE | 2022-04-03 11:03 | PT.INTREAT ---
Date of service: 04/03/22 Time of Service: 09:15 PT Notes Visit Reasons: Congestive heart failure Inpatient Physical Therapy Treatment Note [facility] Date: 04/03/2022 Precautions: Fall. Standard. Activity as tolerated. Subjective: Still refusing to get up to sit on edge of bed or to try transferring to chair. Only willing to do bed exercises, too tired. We discussed importance of moving to preserve mobility. Objective: Pain: Moderate pain and tenderness in R foot and left upper arm. Nursing staff handling pain control with left upper arm. THERA EX: Supine heel slides with care given to protect skin of heels right/ left x10 Glut sets/ quad sets x 10 R arm bicep curls x10 R shoulder flexion to comfortable end range x 10 Hip abd/add right / left x10 SLRs right/ left x 10 Hip IR/ER right/ left x10 Scap retraction x 10 reps Bed Mobility/Transfers: Patient refused to sit at edge of bed, despite several attempts from PT and nurse Plascencia. Assessment: Continues to refuse any activity other than bed exercises. Will need significant assistance with mobility if she does return home, unless much more willing to move independently outside of hospital setting. Plan: Continue to encourage mobility for improved functional activity. TREATMENT CODE/TIME: [id number], 9:15 to 9:30 am
[2022-04-03 11:25] VITALS: BP 143/79; PULSE 88; RESP 20; TEMP 36.4; O2SAT 98
[2022-04-03] MEDS: Insulin Aspart 300 UNITS/3 ML PEN SC (12:26)
[2022-04-03 15:46] VITALS: BP 113/68; PULSE 85; RESP 18; TEMP 36.6; O2SAT 95
[2022-04-03] MEDS: Bacitracin 1 PACKET (16:10)
--- NOTE | 2022-04-03 22:29 | DSE_ITS ---
DS: Diagnosis Discharge Diagnosis (1) CHF (congestive heart failure): Status: Chronic (2) COPD exacerbation: Status: Acute (3) Leukocytosis: Status: Resolved (4) Chronic kidney disease: Status: Chronic (5) Essential hypertension: Status: Chronic (6) Diabetes mellitus type 2: Status: Chronic (7) Morbid obesity: Status: Chronic Discharge Plan Disposition Patient Disposition: AGAINST MEDICAL ADVICE Condition: Improving Discharge Details Reason For Visit: CHF Admit Date/Time: 03/29/22 13:15 Admit Provider: Michael Iqbal Attending Provider: Michael Iqbal Primary Care Provider: Mary Ann Luo [place] [facility] Hospital Course: This 72-year-old female patient with several chronic medical problems presented to the [facility] emergency department from the [facility], where she was for approximately one day following discharge from the hospital. She was noted to have increased work of breathing, wheezing, and hypoxia, for which EMS was called. She was given a DuoNeb enroute with improvement. She denied having a recent cough. Her COVID test on March 25 was negative. Chest x-ray revealed prominent vasculature and mild interstitial thickening, with no focal consolidation?Cardiomegaly present. The impression was CHF exacerbation. Labs - negative troponin and a BNP of 1448, which is elevated over the previous. The renal function was at her baseline on admission. Diuresis was initiated. She had a combination of COPD exacerbation as well as CHF exacerbation. She did not have adequate vascular access to do a CT for PE; therefore, she was treated with therapeutic Lovenox. She received antibiotics and diuretics. On day seven, she had improved and was well enough to be discharged to the [facility] when she began bleeding around her colostomy. The Lovenox was stopped. Surgery was consulted, and she was brought to the OR for cautery. She did well, and there was no further bleeding. Her hemoglobin did drop to 6.5, and she was transfused with two units of blood, with her hemoglobin improving to over 9. She was back to baseline and was to be discharged back to the [facility]. She refused to go there and was firm that she wanted to go home. Care management and I met with her family, with her permission, to make a safe discharge plan. The family stated clearly they did not want to and couldn't take care of her at home. Her also stated he did not want to care for her at home, it was too much for him, and he was not in good health. She refused PT almost every day. I had many conversations with her regarding concerns for her safety and ability to be successful at home. She stated she believed she could be successful and her would help her ? despite his refusing to help her. She told him that if he did not take care of her, she would kick him out of the home. I explained to her that the [facility] staff would help her regain her strength, that she was even more deconditioned than the last admission, and their help would help her be safer at home. I told her they were holding her bed there. She refused every time I brought it up. I explained many times our and her family's concerns. She could not get up off the bed without three assistants and a stand assist device. She said she could get around at home with her electric wheelchair and lift chair. I explained if she left, it would be against medical advice and that she could fall, become ill, or possibly if she went home. She said she understood, it was her choice, and she would go home. She called her . He arrived 6 hours later to pick her up. She understood what against medical advice is and signed a paper stating that she was leaving against medical advice. Nursing removed her urinary catheter and IV and assisted her into a wheelchair. They also helped her into their car. Discussed with Dr Luna Home Meds and New Rx's Prescriptions: Continued simvastatin [Zocor] 40 MG tablet 40 mg PO HS calcium carbonate-vitamin D3 [Calcium 600 + D(3)] 1 EACH tablet 1 ea PO DAILY quetiapine 25 mg Tablet 12.5 mg PO QPM Qty: 15 0RF magnesium oxide 400 mg magnesium Tablet 400 mg PO BID Qty: 60 0RF lisinopril 10 mg tablet 10 mg PO DAILY tramadol 50 mg Tablet 100 mg PO QHS nystatin 100,000 unit/gram cream 1 applic TOPICAL TID aspirin 81 mg Tablet,Chewable 81 mg PO DAILY Lokelma 10 gram powder in packet 10 g PO DAILY Label Comments: TAKE 10 GRAMS (1 PACKET) ORALLY DAILY BEFORE BREAKFAST Rx Instructions: BEFORE BREAKFAST lidocaine 5 % Adhesive Patch,Medicated 2 patch topical HS Qty: 0 0RF ferrous sulfate 325 mg (65 mg iron) Tablet 325 mg PO BID@1000,2200 Qty: 0 0RF polyethylene glycol 3350 17 gram Powder In Packet 17 g PO DAILY PRN PRN (Reason: Constipation) Qty: 0 0RF albuterol sulfate [Ventolin HFA] 90 mcg/actuation Hfa Aerosol Inhaler 2 puff INHALATION Q4H cholecalciferol (vitamin D3) 50 mcg (2,000 unit) tablet 4,000 unit PO DAILY Label Comments: TAKE TWO TABLETS BY MOUTH EVERY DAY duloxetine 60 mg capsule,delayed release(DR/EC) 60 mg PO BID Label Comments: TAKE ONE CAPSULE BY MOUTH TWICE A DAY glipizide 5 mg tablet 10 mg PO BID Label Comments: TAKE TWO TABLETS BY MOUTH TWICE A DAY omeprazole 40 mg capsule,delayed release(DR/EC) 40 mg PO DAILY Label Comments: TAKE ONE CAPSULE BY MOUTH EVERY DAY pregabalin 50 mg capsule 50 mg PO TID Label Comments: TAKE ONE CAPSULE BY MOUTH THREE TIMES A DAY metoprolol succinate 25 mg Tablet Extended Release 24 Hr 25 mg PO DAILY Qty: 30 0RF Changed insulin glargine [Lantus Solostar U-100 Insulin] 100 unit/mL (3 mL) insulin pen 25 unit SUBCUT BID Qty: 0 0RF Label Comments: INJECT 56 UNITS SUBCUTANEOUSLY TWO TIMES A DAY- Once in the am and once in the pm Discharge Instructions Referrals: Mary Ann Luo [Primary Care Provider] - (1 week) Activity:: Activity as Tolerated Diet:: Low Sodium Discharge Orders Discharge Orders: Discharge Order (Routine); Ordered 04/03/22 Ordered By: Corin Kennedy Discharge Data Discharge Date/Time-TO BE ENTERED AT DEPARTURE: 04/03/22 16:34 DS: Summary Time Spent with Patient providing and/or coordinating discharge services: Greater than 30 minutes Status at Discharge Functional status at discharge: wheelchair bound Overall status at discharge: patient is not back to baseline Mental Status: mental status grossly normal Speech and Movement: speech and movement normal Mood: congruent mood Affect: normal affect Exam Psych Mental Status: mental status grossly normal Speech and Movement: speech and movement normal Mood: congruent mood Affect: normal affect DS: Data Vitals/I&O Vitals and I&O: Vital Signs Temperature 36.6 C 04/03/22 15:46 Temperature Source Tympanic 04/03/22 15:46 Pulse 85 04/03/22 15:46 Pulse Rhythm Regular 04/03/22 07:30 Respiratory Rate 18 04/03/22 15:46 Respiratory Effort Non-Labored 04/03/22 07:30 Respiratory Depth Normal 04/03/22 07:30 Respiratory Pattern Normal 04/03/22 07:30 Blood Pressure 113/68 04/03/22 15:46 Blood Pressure Position Supine 03/27/22 07:53 Pulse Oximetry 95 04/03/22 15:46 Oxygen Delivery Method Nasal Cannula 04/03/22 15:46 Oxygen Flow Rate 1 04/03/22 15:46 Pain Level 8 04/03/22 15:46 Comment 04/03/22 15:46 Intake & Output 04/02/22 04/03/22 04/03/22 23:59 11:59 23:59 Intake Total 480 / 780 560 / 800 240 / 800 Output Total 500 / 1575 825 / 1300 475 / 1300 Balance -20 / -795 -265 / -500 -235 / -500 Weight 136.9 kg 140.7 kg Intake: IV 20 / 20 Oral 480 / 760 540 / 780 240 / 780 Output: Urine 350 / 1425 825 / 1100 275 / 1100 Stool 150 / 150 200 / 200 Other: Urine Color Yellow Yellow Yellow Urine Appearance Clear Clear Clear Data Completed and Pending Labs on day of discharge: Labs from last 24 hours 04/03/22 04/03/22 06:15 06:15 WBC 9.05 RBC 3.48 L Hgb 9.3 L Hct 31.6 L MCV 91 MCH 26.7 L MCHC 29.4 L RDW 19.6 H Plt Count 173 MPV 9.5 Immature Gran % 1.2 Neutrophils % 69.0 Lymphocytes % 14.1 Monocytes % 7.6 Eosinophils % 7.8 Basophils % 0.3 Nucleated RBC % 0.0 Absolute Neutrophils 6.23 Absolute Lymphocytes 1.28 Absolute Monocytes 0.69 Absolute Eosinophils 0.71 H Absolute Basophils 0.03 Sodium 144 Potassium 4.4 Chloride 101 Carbon Dioxide 40.6 H Anion Gap 2.4 L BUN 39 H Creatinine 1.4 H Estimated GFR/1.73 m2 37.07 Glucose 142 H Calcium 9.3 Magnesium 1.9 PFSH All Active Problems (Updated 04/04/22 @ 00:08 by AGNIESZKA VITAL) COPD exacerbation (Acute) CHF (congestive heart failure) (Chronic) Fall (Acute) Anemia (Chronic) Mass of left ovary (Acute) Chronic kidney disease (Chronic) Essential hypertension (Chronic) Diabetes mellitus type 2 (Chronic) On Metformin Back pain (Acute) Morbid obesity (Chronic) Hyperlipidemia (Chronic) Depression (Chronic) Vitamin D deficiency (Chronic) History of colostomy (Chronic) Medical History Anemia (05/03/13) Hemoglobin 8.2. Anemia Depression Diabetes mellitus Fall Gastroesophageal reflux disease GERD (gastroesophageal reflux disease) History of breast cancer History of hepatitis C History of incisional hernia History of renal failure Migraine Morbid obesity Osteopenia Palliative care patient Vitamin D deficiency Surgical History Colectomy H/O mastectomy Hernia Repair, Incisional x2 S/P cholecystectomy Family History Mother No problems noted. Father No problems noted. Social History Smoking/Tobacco Use Status: Former Tobacco Use Smoking risk assessment performed?: Yes Alcohol Intake: never Drug use: Never Substance use type: does not use Do you feel safe at home: Yes Do you feel safe in your relationship?: Yes
--- NOTE | 2022-04-04 18:30 | INDS_ITS ---
Date of service: 04/04/22 PT Notes Visit Reasons: Congestive heart failure Physical Therapy Inpatient Discharge Summary Date: 04/03/2022 Dates of service: 03/28/2022 through 04/03/2022 This is a clinical summary of care provided for the duration of dates listed above. No charge was made in the completion of this documentation. Referring Doctor: Corin Kennedy MD PT Orders: PT CONSULT: Fall Safety Assessment Precautions: Fall. Standard. Activity as tolerated. Patient Profile/Admitting Diagnosis: Patient was seen from 03/17/2022 through 03/25/2022 for management of exacerbation of low back pain, hyperkalemia, and hypomagnesemia.? Raven is a 71-year-old female who presented again to the ED on to the ED on 03/27/2022 due to increasing shortness of breath, wheezing, and hypoxia.? Patient is diagnosed with exacerbation of congestive heart failure and COPD. PMHX: All Active Problems? 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 Leukocytosis.? Intermittently febrile. Diverticulitis (Chronic) Recurrent.? S/p high risk hemicolectomy in the setting of sepsis and hypoten [place] 03/22/2013. Complication of a stomal leak resulting in an abdominal abscess.? [place] [facility] [place]03[place] emergently with sepsis syndrome and had an abdominal abscess drained. ? Completed rehab at [facility] with discharge most recently on after extensive dressing care of ? ?? the abdominal wound with a wound VAC. Hepatitis C (Chronic) Recent negative viral count.Depression (Chronic) Vitamin D deficiency (Chronic) History of colostomy (Chronic) Medical History? Anemia (05/03/13) Hemoglobin 8.2.Anemia Depression Diabetes mellitus Fall Gastroesophageal reflux disease GERD (gastroesophageal reflux disease) History of breast cancer History of hepatitis C History of incisional hernia History of renal failure Migraine Morbid obesity Osteopenia Palliative care patient Vitamin D deficiency Surgical History? Colectomy H/O mastectomy Hernia Repair, Incisional x2S/P cholecystectomy Social History/Home Situation: Lives with significant other in a mobile home with a ramp to enter and alternate 3 steps to enter.? Requires assistance from significant other for all transfers using walker.? Short distance ambulation only prior to admission. Equipment Owned/DME: Front-wheeled walker, wheelchair Subjective: NT. See most recent RAT CULTURIST notes. Objective: General Observation:? NT. See most recent RAT CULTURIST notes. Mental Status: NT. See most recent RAT CULTURIST notes. Pain: NT. See most recent RAT CULTURIST notes. Vital Signs: NT. See most recent RAT CULTURIST notes. ROM: Right Upper Extremity: ? Shoulder Flexion lacks 50% of AROM. Shoulder abduction lacks 50% of AROM. Elbow flexion WFL. Wrist flexion WFL. Functional opening and closing of hand WFL. Left Upper Extremity:? Shoulder Flexion lacks 50% of AROM. Shoulder abduction lacks 50% of AROM. Elbow flexion WFL. Wrist flexion WFL. Functional opening and closing of hand WFL. Right Lower Extremity: Hip flexion unable beyond 90 while seated at edge of bed Hip abduction 10 degrees. Knee flexion 0 to 90 degrees. Ankle dorsiflexion to neutral only. Ankle plantarflexion WFL. Left Lower Extremity: Hip flexion unable beyond 90 while seated at edge of bed Hip abduction 10 degrees. Knee flexion 0 to 90 degrees. Ankle dorsiflexion to neutral only. Ankle plantarflexion WFL. Strength: Right Upper Extremity: Shoulder flexors 3-/5. Shoulder abductors 3-/5. Elbow flexors 3-/5. Elbow extensors 3-/5. Work Counselor strong. Left Upper Extremity: Shoulder flexors 3-/5. Shoulder abductors 3-/5. Elbow flexors 3-/5. Elbow extensors 3-/5. Work Counselor strong. Right Lower Extremity: Hip flexors 3-/5. Hip abductors 3-/5. Knee flexors 3-/5. Knee extensor 3-/5. Ankle dorsiflexors 3-/5. Ankle plantarflexors 4-/5. Left Lower Extremity: Hip flexors 3-/5. Hip abductors 3-/5. Knee flexors 3-/5. Knee extensor 3-/5. Ankle dorsiflexors 3-/5. Ankle plantarflexors 4-/5. THERA EX: Supine heel slides x10 R arm combined FADIR/EABER x 10 Mini bridges (REFUSED) Hip abd/add (REFUSED) DBE x 5 Bed Mobility/Transfers: Patient refused to be sat at edge of bed despite several attempts of PT Gait: Patient refused to be sat at edge of bed despite several attempts of PT to use STEDY lift Balance: Static Sitting: Unable Dynamic Sitting: Unable Static Standing: Unable Dynamic Standing: Unable ASSESSMENT: Poor patient compliance. Patient demonstrates ambulatory dysfunction, limited functional mobility, decrease fall risk, and ADL dependence resulting from SANDY, Anemia,? dizziness, recent fall, high BMI, and comorbid conditions as above whic all increase risk for repeated falls.? Limited ability of significant other to help due to own mobility issues.? Patient presents with clinical signs and symptoms consistent with current/admitting diagnoses that have resulted to mobility limitations, gait instability, generalized weakness, and overall ADL decline as demonstrated by the following impairment level findings: 1.? Decreased strength to B LE major muscle groups 2.? Impaired sitting/standing balance 3.? Impaired activity tolerance 4.? Limitation of joint range of motion in back and B UE/LE 5.? Shortness of breath 6.? Low back pain Impairments are contributing to the following functional limitations: 1.? Decline in bed mobility skills 2.? Decline in transfer skills 3.? Difficulty with ambulation without assistive device and physical assistance 4.? Increased completion time for mobility ADL performance 5.? Increased risk for falls 6.? Difficulty with managing steps alone safely Goals: Goals X1 week 1. Supine-Sit independent NOT MET 2. Sit-Supine independent NOT MET 3. Sit-Stand standby assist NOT MET 4. Stand-Sit with standby assist with bariatric FWW NOT MET 5. Bed-Chair standby assist with bariatric FWW NOT MET 6. Chair-Bed standby assist with bariatric FWW NOT MET 7. Standby assist with bariatric FWW for gait on level surface with use of FWW for at least 30 feet without report of pain nor dyspnea NOT MET 8. Good static and dynamic standing balance/tolerance NOT MET DISCHARGE RECOMMENDATIONS: [] ? Home with no services [] [] ? Home with services [specify] [] ? Home with outpatient PT [] [X] ? SNF for continued rehabilitation.? Patient will benefit from skilled [facility] facility placement for continued skilled physical therapy services in order to progress mobility level, strength, and balance in preparation for a safe discharge to home. [] ? Floor Inspector Care [] [] ? SNF versus LTC based on ability to participate and progress [] TREATMENT CODE/TIME: [place] Thank you for the opportunity to participate in the care of this patient. Selene Collado PT, DPT, CLT [facility] [place], [place]
== END 2022-04-03 16:34 | disposition left against medical advice (07) | DRG 292 ==
LOC: ER 10:42 → MS 11:12
PROVIDERS: Internal Medicine; Nurse Practitioner Acute Care; Nurse Practitioner Family; Surgery; Admitting Provider Family Medicine; Emergency Provider Emergency Medicine; PCP Family Medicine; Visit Provider Family Medicine
DX: I13.0 Hypertensive heart and chronic kidney disease with heart failure and stage 1 through stage 4 chronic kidney disease, or unspecified chronic kidney disease (principal); J44.1 Chronic obstructive pulmonary disease with (acute) exacerbation; Z68.43 Body mass index [BMI] 50.0-59.9, adult; K63.2 Fistula of intestine; K94.01 Colostomy hemorrhage; E11.22 Type 2 diabetes mellitus with diabetic chronic kidney disease; Z79.4 Long term (current) use of insulin; E66.01 Morbid (severe) obesity due to excess calories; E83.42 Hypomagnesemia; D64.9 Anemia, unspecified; N18.9 Chronic kidney disease, unspecified; Z79.84 Long term (current) use of oral hypoglycemic drugs; E78.5 Hyperlipidemia, unspecified; B18.2 Chronic viral hepatitis C; F32.A Depression, unspecified; K21.9 Gastro-esophageal reflux disease without esophagitis; Z85.3 Personal history of malignant neoplasm of breast; Z90.49 Acquired absence of other specified parts of digestive tract; Z87.891 Personal history of nicotine dependence; D72.829 Elevated white blood cell count, unspecified; R09.02 Hypoxemia; T80.89XA Other complications following infusion, transfusion and therapeutic injection, initial encounter; R60.0 Localized edema; I50.9 Heart failure, unspecified; L92.8 Other granulomatous disorders of the skin and subcutaneous tissue
CPT/HCPCS: 17110; 36410; 36415; 36416; 76942; 80048; 80053; 82805; 82947; 82962; 84145; 86850; 86900; 86901; 86920; 87637; 93005; 96365; 96372; 96375; 97110; 97163; 97530; 99222; 99285; 71045; 81003; 83605; 83735; 83880; 84484; 85014; 85018; 85025; 85610; 85730; 93010; 93306; 93970; 94640; 94667; 99219; 99232; 99233; 99239; J1650; J1940; J1941; J2930; J3475; J3490; J7620; P9016

== ENCOUNTER 2022-08-31 22:59 | Inpatient (IN) | payer MEDICARE, MEDICAID, SELFPAY ==
[2022-08-31] VITALS (37 sets, daily range): BP systolic 130–150; BP diastolic 60–80; PULSE 105–114; RESP 15–29; O2SAT 93
--- NOTE | 2022-08-31 22:57 | NUR.NOTE ---
Referral faxed to [facility] to f/u next available appt for Hematemesis.Nursing Note:
--- NOTE | 2022-08-31 23:00 | RT.EKG_ITS ---
APPROVED REPORT Exam: Resting ECG Reason for Exam: difficulty breathing Patient Location: E HR:111 bpm ECG Measurements Heart Rate 111 AXIS OR 159 P 79 QRSd 77 QRS 59 QT 314 T 49 QTc 427 Conclusion Sinus tachycardia...rate> 99
--- NOTE | 2022-08-31 23:00 | DI.RAD_ITS ---
Exam(s) XR CHEST 2V PA LATERAL EXAM: XR CHEST 2V PA LATERAL CLINICAL HISTORY: SOB. TECHNIQUE: 2D digital imaging was performed. COMPARISON: CR,XR XR PORTABLE CHEST AP from 03/27/2022 FINDINGS: 2 views: Heart size is upper normal. The mediastinum is not widened. Lungs are clear. No infiltrates nor pleural effusions. IMPRESSION: No acute pulmonary findings. DATA REPOSITORY: RADIATION DOSE DELIVERED:
--- NOTE | 2022-08-31 23:14 | W.ED.GENAD ---
Discharge Plan Discharge Details Chief Complaint: SOB Primary Care Provider: Mary Ann Luo ED Provider: Rayshawn De La O Home Meds and New Rx's Prescriptions: No Action simvastatin [Zocor] 40 MG tablet 40 mg PO HS calcium carbonate-vitamin D3 [Calcium 600 + D(3)] 1 EACH tablet 1 ea PO DAILY quetiapine 25 mg Tablet 12.5 mg PO QPM Qty: 15 0RF magnesium oxide 400 mg magnesium Tablet 400 mg PO BID Qty: 60 0RF lisinopril 10 mg tablet 10 mg PO DAILY tramadol 50 mg Tablet 100 mg PO QHS nystatin 100,000 unit/gram cream 1 applic TOPICAL TID aspirin 81 mg Tablet,Chewable 81 mg PO DAILY Lokelma 10 gram powder in packet 10 g PO DAILY Label Comments: TAKE 10 GRAMS (1 PACKET) ORALLY DAILY BEFORE BREAKFAST Rx Instructions: BEFORE BREAKFAST lidocaine 5 % Adhesive Patch,Medicated 2 patch topical HS Qty: 0 0RF ferrous sulfate 325 mg (65 mg iron) Tablet 325 mg PO BID@1000,2200 Qty: 0 0RF polyethylene glycol 3350 17 gram Powder In Packet 17 g PO DAILY PRN PRN (Reason: Constipation) Qty: 0 0RF insulin glargine [Lantus Solostar U-100 Insulin] 100 unit/mL (3 mL) insulin pen 25 unit SUBCUT BID Qty: 0 0RF Label Comments: INJECT 56 UNITS SUBCUTANEOUSLY TWO TIMES A DAY- Once in the am and once in the pm albuterol sulfate [Ventolin HFA] 90 mcg/actuation Hfa Aerosol Inhaler 2 puff INHALATION Q4H cholecalciferol (vitamin D3) 50 mcg (2,000 unit) tablet 4,000 unit PO DAILY Label Comments: TAKE TWO TABLETS BY MOUTH EVERY DAY duloxetine 60 mg capsule,delayed release(DR/EC) 60 mg PO BID Label Comments: TAKE ONE CAPSULE BY MOUTH TWICE A DAY glipizide 5 mg tablet 10 mg PO BID Label Comments: TAKE TWO TABLETS BY MOUTH TWICE A DAY omeprazole 40 mg capsule,delayed release(DR/EC) 40 mg PO DAILY Label Comments: TAKE ONE CAPSULE BY MOUTH EVERY DAY pregabalin 50 mg capsule 50 mg PO TID Label Comments: TAKE ONE CAPSULE BY MOUTH THREE TIMES A DAY metoprolol succinate 25 mg Tablet Extended Release 24 Hr 25 mg PO DAILY Qty: 30 0RF Medical Decision Making 72-year-old female presents from home via EMS. She has had 1 week of progressive weakness that has been associated with a cough 4 days time and now 2 days of shortness of breath. Weak to the point where she was unable to get out of her chair at home. She has had some falls earlier this week and a number of EMS/fire department lift assists. She has not noted a fever. She has had some increased frequency and foul-smelling urine. Patient is alert and interactive. Her resting pulse is approximately 115 and rest approximately 92% on room air that corrects with 2 L oxygen. She has areas of yeast and skin breakdown in her lower abdomen and groin. These were cleansed and dressed with antifungal cream. She has a history of CHF, COPD, chronic kidney disease, morbid obesity, hypertension and diabetes. She required a rehabilitation stay at the end of this previous summer, but now is back at home. IV access established, screening labs obtained, patient referred for chest x-ray, EKG. Her diagnostic studie: Troponin negative, BNP 171. BUN is 40 with a creatinine of 1.8. Sodium 135. Initial potassium elevated at 7.3, recheck at 5.0 Urine positive nitrites and numerous white blood cells present. Chest x-ray: No acute cardiopulmonary findings. Given her weakness, dehydration, failure to thrive at home, recurrent falls this week and now with active urinary tract infection, patient will require admission. HPI General Mode of arrival: EMS. Date/Time Provider Initiated Documentation: 08/31/22 23:03. Limitations to Documentation: no limitations. Information obtained by: patient and EMS. History of Present Illness 72 year old F presents to the emergency department with the chief complaint of Weakness and shortness of breath for 1 week, described as moderate, and is localized to the chest. Patient reports no radiation. Patient started experiencing this day(s) and it has been intermittent. No relieving factors improve symptom(s), Movement worsens symptoms . Patient notes cough, shortness of breath and other (Increased frequency of urination and foul-smelling urine); denies chest pain and fever/chills. Patient did receive the following treatments prior to arrival, none Related Data Home Medications Medication Instructions Recorded Confirmed calcium carbonate 600 mg-vitamin 1 ea PO DAILY 05/10/13 03/27/22 D3 10 mcg (400 unit) tablet (Calcium 600 + D(3)) simvastatin 40 mg tablet (Zocor) 40 mg PO HS 05/10/13 03/27/22 albuterol sulfate 90 mcg/actuation 2 puff inhalation Q4H 12/08/20 03/27/22 aerosol inhaler (Ventolin HFA) cholecalciferol (vitamin D3) 50 4,000 unit PO DAILY 11/05/21 03/27/22 mcg (2,000 unit) tablet duloxetine 60 mg capsule,delayed 60 mg PO BID 11/05/21 03/27/22 release glipizide 5 mg tablet 10 mg PO BID 11/05/21 03/27/22 omeprazole 40 mg capsule,delayed 40 mg PO DAILY 11/05/21 03/27/22 release pregabalin 50 mg capsule 50 mg PO TID 11/05/21 03/27/22 metoprolol succinate 25 mg 25 mg PO DAILY #30 tabs 11/09/21 03/27/22 tablet,extended release 24 hr magnesium oxide 400 mg PO BID #60 tabs 12/02/21 03/27/22 quetiapine 25 mg tablet 12.5 mg PO QPM #15 tabs 12/02/21 03/27/22 lisinopril 10 mg tablet 10 mg PO DAILY 03/16/22 03/27/22 tramadol 50 mg tablet 100 mg PO QHS 03/17/22 03/27/22 aspirin 81 mg chewable tablet 81 mg PO DAILY 03/24/22 03/27/22 ferrous sulfate 325 mg (65 mg 325 mg PO BID@1000,2200 #0 tabs 03/24/22 03/27/22 iron) tablet lidocaine 5 % topical patch 2 patch topical HS #0 ea 03/24/22 03/27/22 nystatin 100,000 unit/gram topical 1 applic topical TID 03/24/22 03/27/22 cream polyethylene glycol 3350 17 gram 17 g PO DAILY PRN PRN Constipation 03/24/22 03/27/22 oral powder packet #0 ea sodium zirconium cyclosilicate 10 10 g PO DAILY 03/24/22 03/27/22 gram oral powder packet (Lokelma) insulin glargine 100 unit/mL (3 25 unit (0.25 mL) subcut BID #0 mL 04/03/22 03/27/22 mL) subcutaneous pen (Lantus Solostar U-100 Insulin) Previous Rx's Medication Instructions Recorded metoprolol succinate 25 mg 25 mg PO DAILY #30 tabs 11/09/21 tablet,extended release 24 hr magnesium oxide 400 mg PO BID #60 tabs 12/02/21 quetiapine 25 mg tablet 12.5 mg PO QPM #15 tabs 12/02/21 ferrous sulfate 325 mg (65 mg 325 mg PO BID@1000,2200 #0 tabs 03/24/22 iron) tablet lidocaine 5 % topical patch 2 patch topical HS #0 ea 03/24/22 polyethylene glycol 3350 17 gram 17 g PO DAILY PRN PRN Constipation 03/24/22 oral powder packet #0 ea insulin glargine 100 unit/mL (3 25 unit (0.25 mL) subcut BID #0 mL 04/03/22 mL) subcutaneous pen (Lantus Solostar U-100 Insulin) Allergies Allergy/AdvReac Type Severity Reaction Status Date / Time epinephrine Allergy Severe chest Unverified 09/01/22 00:16 pain/heart attack Penicillins Allergy Intermediate rsh fever Unverified 09/01/22 00:16 banana [Banana] Allergy Unverified 09/01/22 00:16 NSAIDS (Non-Steroidal Allergy unkown Unverified 09/01/22 00:16 Anti-Inflamma Sulfa (Sulfonamide Allergy rash,fever Unverified 09/01/22 00:16 Antibiotics) Tetracyclines Allergy rash fever Unverified 09/01/22 00:16 sodium polystyrene sulfonate AdvReac Severe tachy/dyspn Unverified 09/01/22 00:16 [From Kayexalate] ea/rash Niacin Preparations AdvReac Intermediate flushing Unverified 09/01/22 00:16 General Stated Complaint: SOB TASHA: 3 Review of Systems Narrative: No fever, no known sick contacts. Generalized weakness today. Unable to get out of her chair. No falls today. She has had increased frequency of urination, a cough for 1 week and shortness of breath over the past 2 days time. She denies chest pain. 8 systems were reviewed. PFSH All Active Problems COPD exacerbation (Acute) CHF (congestive heart failure) (Chronic) Fall (Acute) Anemia (Chronic) Mass of left ovary (Acute) Chronic kidney disease (Chronic) Essential hypertension (Chronic) Diabetes mellitus type 2 (Chronic) On Metformin Back pain (Acute) Morbid obesity (Chronic) Hyperlipidemia (Chronic) Depression (Chronic) Vitamin D deficiency (Chronic) History of colostomy (Chronic) Medical History Anemia (05/03/13) Hemoglobin 8.2. Anemia Depression Diabetes mellitus Diverticulitis Recurrent. S/p high risk hemicolectomy in the setting of sepsis and hypotension 03/22/2013. Complication of a stomal leak resulting in an abdominal abscess. Readmitted to [facility] [place] 05/03/13 emergently with sepsis syndrome and had an abdominal abscess drained. Completed rehab at [facility] with discharge most recently on after extensive dressing care of the abdominal wound with a wound VAC. 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 Leukocytosis. Intermittently febrile. Fall Gastroesophageal reflux disease GERD (gastroesophageal reflux disease) Hepatitis C Recent negative viral count. History of breast cancer History of hepatitis C History of incisional hernia History of renal failure Migraine Morbid obesity Osteopenia Palliative care patient Vitamin D deficiency Surgical History Colectomy H/O mastectomy Hernia Repair, Incisional x2 S/P cholecystectomy Family History Mother No problems noted. Father No problems noted. Social History Smoking/Tobacco Use Status: Former Tobacco Use Smoking risk assessment performed?: Yes Alcohol Intake: never Drug use: Never Substance use type: does not use Do you feel safe at home: Yes Do you feel safe in your relationship?: Yes Exam Narrative Exam Narrative: GEN: awake, alert, oriented 3. Pleasant, well groomed, interactive. HEAD: Normocephalic, atraumatic ENT: Mucous membranes dry, oropharynx unremarkable, External ear exam unremarkable EYES: PERRL, EOMI NECK: Full ROM, no ZAINAB, no menigismus CHEST/RESP: Nontender, distant CARDIOVASCULAR: Distant, regular and tachycardic, no murmur, rub ludivina. 2+ Rad pulse bilateral ABDOMEN: Soft, nontender, no mass. +Bowel sounds. The patient has skin breakdown and small amount of discharge in her lower abdominal skin folds. EXT: Full ROM, pitting pretibial edema, no rash Neuro: Grossly normal neurologic exam, conversant, interactive. Psych: Speech fluent, thoughts congruent, affect normal Course Vital Signs Vital signs: Vital Signs Pulse 114 H 08/31/22 22:58 Respiratory Rate 20 08/31/22 22:58 Blood Pressure 131/60 08/31/22 22:58 Pulse Oximetry 93 08/31/22 22:58 Temperature Source Temporal Artery Scan 08/31/22 22:58 Pulse 114 H 08/31/22 22:58 Respiratory Rate 20 08/31/22 22:58 Respiratory Effort 08/31/22 23:06 Respiratory Depth Normal 08/31/22 23:06 Respiratory Pattern Normal 08/31/22 23:06 Blood Pressure 131/60 08/31/22 22:58 Blood Pressure Position Supine 08/31/22 22:58 Pulse Oximetry 93 08/31/22 22:58 Oxygen Delivery Method Room Air 08/31/22 22:58 Oxygen Flow Rate 0 08/31/22 22:58 Pain Level 10 08/31/22 22:58
[2022-08-31 23:38] LABS: Absolute Basophil Count 0.07 10^3/uL (0.0-0.2); Absolute Lymphocyte Count 0.95 10^3/uL (1.2-3.4); Absolute Monocyte Count 0.57 10^3/uL (0.1-0.8); Basophils % 0.5; Eosinophils % 3.5; HCT 41.5 % (36.0-46.0); HGB 12.6 g/dL (11.2-15.7); Immature Grans % 0.8; Lymphocytes % 7.1; MCH 28.8 pg (27.0-33.0); MCHC 30.4 % (32.0-36.0); MCV 95 fL (80-95); MPV 9.3 fL (8.0-11.0); Monocytes % 4.3; Neutrophils % 83.8; Platelet Count 148 10^3/uL (130-400); RBC 4.37 10^6/uL (3.93-5.22); RDW 13.6 % (11.7-14.6); RDW-SD 47.7 fL; WBC 13.33 10^3/uL (4.4-10.8)
[2022-08-31 23:39] LABS: Absolute Eosinophil Count 0.47 10^3/uL (0.0-0.7); Absolute Neutrophil Count 11.17 10^3/uL (1.2-6.7)
[2022-09-01] VITALS (20 sets, daily range): BP systolic 104–147; BP diastolic 59–85; PULSE 84–109; RESP 18–24; TEMP 36–36.8; O2SAT 86–95
[2022-09-01] MEDS: Clotrimazole 1% 15 GM TUBE TP (00:08)
[2022-09-01 00:10] LABS: PTT Activated 19.9 sec (21.0-27.5); Prothrombin Time 9.8 sec (9.3-11.0)
[2022-09-01 00:14] LABS: COVID-19 PCR Negative (Negative); Influenza A PCR Negative (Negative); Influenza B PCR Negative (Negative); RSV PCR Negative (Negative); Source Nasopharynx
[2022-09-01 00:15] LABS: Bilirubin Negative (Negative); Blood Negative (Negative); Clarity Cloudy (Clear); Glucose Negative (Negative); Ketones Negative (Negative); Leukocyte Esterase Small (Negative); Nitrite Positive (Negative); Specific Gravity 1.025 (1.005-1.025); Urobilinogen 0.2 EU/dL (Up TO 0.2); pH 5.5 (5-8)
[2022-09-01 00:17] LABS: ALT 14 U/L (14-59); AST 19 U/L (15-37); Alkaline Phosphatase 142 U/L (46-116); Anion Gap 4.5 mmol/L (3-11); BUN 40 mg/dL (7-18); Bilirubin, Total 0.4 mg/dL (0.2-1.0); CO2 30.5 mmol/L (21.0-32.0); CREATININE 1.8 mg/dL (0.55-1.02); Calcium 9.2 mg/dL (8.5-10.1); Chloride 100 mmol/L (98-107); Estimated GFR 29.75 (mL/min/1.73m2); Glucose 285 mg/dL (74-106); Magnesium 1.3 mg/dL (1.8-2.4); NT-proBNP 171 pg/mL (<300); Sodium 135 mmol/L (136-145); Total Protein 8.1 g/dL (6.4-8.2); Troponin I < 50 ng/L (<or=60)
[2022-09-01 00:22] LABS: Potassium 7.3 mmol/L (3.5-5.1)
[2022-09-01 00:24] LABS: Bacteria Few HPF (Negative); C & S Indicated? Yes; Crystals Negative HPF (Negative); Epithelial Cells Few HPF (Negative); Mucus Negative (Negative); RBC Negative HPF (0-2); WBC >50 HPF (0-5)
--- NOTE | 2022-09-01 00:28 | NUR.NOTE ---
Nursing Note: pharmacy consult added due to pt not having her medication list with her and is not able to remember all medications at this time
--- NOTE | 2022-09-01 00:30 | NUR.NOTE ---
During lab draw pt requested to see her black pocketbook medics gave medical staff a large black bag on her arrival to ED. Pt made aware that only her black bag was given to ED staff. Pt states Well I hope that it's here. I just pulled out a bunch of money to pay bills. Black pocketbook is not in ED with pt.
[2022-09-01] MEDS: cefTRIAXone 1 GM/50 ML BAG IVPB ×2 (00:38→23:10)
[2022-09-01] MEDS: Albuterol/Ipratropium 3 ML UPD VIAL UPD (00:55)
--- NOTE | 2022-09-01 00:55 | DI.VRAD_ITS ---
PROCEDURE INFORMATION: Exam: XR Chest Exam date and time: 09/01/2022 12:18 AM Age: 72 years old Clinical indication: Shortness of breath; Additional info: SOB TECHNIQUE: Imaging protocol: Radiologic exam of the chest. Views: 2 views. COMPARISON: XR PORTABLE CHEST AP 03/27/2022 9:07 AM FINDINGS: Lungs: Unremarkable. No consolidation. Pleural spaces: Unremarkable. No pleural effusion. No pneumothorax. Heart/Mediastinum: The cardiac silhouette is enlarged. Bones/joints: Unremarkable. IMPRESSION: No acute cardiopulmonary findings. Dictated and Authenticated by: Chalo Givens MD. Ordering:BRAYAN Tabares MD
[2022-09-01] MEDS: MAGNESIUM SULFATE 2 GM/50 ML BAG IVPB (01:11)
--- NOTE | 2022-09-01 01:12 | HPE_ITS ---
Date of service: 09/01/22 Time of Service: 01:14 Assessment and Plan Assessment and plan (1) Acute UTI: Status: Acute Assessment and plan: She has grown ceftriaxone sensitive Serretia in the past. Will await urine culture obtained. - continue ceftriaxone - monitor I/O's (2) CHF (congestive heart failure): Status: Chronic Assessment and plan: Last echo 03/2022. Patient not currently exacerbated. - continue home meds (3) Chronic kidney disease: Status: Chronic Assessment and plan: Slight increase from prior Cr. Possibly some prerenal versus from infection. -s/p fluid resuscitation (1L only ordered) - will monitor - I/O's (4) Diabetes mellitus type 2: Status: Chronic Assessment and plan: - On lantus, will add SSI - AC&HS fingersticks (5) Morbid obesity: Status: Chronic Assessment and plan: Concern for OHS given prior blood gases. Will monitor for signs of worsening hypercapnia - should have outpatient sleep study (6) Hyperlipidemia: Status: Chronic Assessment and plan: continue home meds (7) Depression: Status: Chronic Assessment and plan: Continue home meds (8) COPD (chronic obstructive pulmonary disease): Status: Chronic Assessment and plan: Former smoking, no PFT's. Presumptive diagnosis - albuterol prn (9) Fall: Status: Acute Assessment and plan: PT assessment History of Present Illness Narrative: This is a very comorbid (DM, COPD, CHF, obesity, likely OHS?) 72 yo with several hospital admission who presents to the ED with several days of weakness, shortness of breath and cough. Her weakness has resulted in falls earlier in the week that required EMS/fire assistance. She has not noted fevers but does endorses worsening smell to her urine. Her labs found a leukocytosis with a positive UA for infection. Her creatinine is slightly elevated from baseline. Her CXR did not find anything acute. Her bnp was low. She was given ceftriaxone and was volume resuscitated in the ED. He last echo is from 03/2022 which showed a normal appearing LV, but the RV could not be assessed. She has not had PFT's. She has previously seen palliative care, she remains a full code. She states that she has been getting progressively weaker and has noticed a cough and some increased shortness of breath in the past few days. She is sleeping comfortably at time of assessment. She did not appear clinically volume overloaded at time of assessment and is saturating well on room air. She was written ofr continuous IVF, but I did change these to just a single liter given her cardiac history. PFSH All Active Problems COPD (chronic obstructive pulmonary disease) (Chronic) Acute UTI (Acute) COPD exacerbation (Acute) CHF (congestive heart failure) (Chronic) Fall (Acute) Anemia (Chronic) Mass of left ovary (Acute) Chronic kidney disease (Chronic) Essential hypertension (Chronic) Diabetes mellitus type 2 (Chronic) On Metformin Back pain (Acute) Morbid obesity (Chronic) Hyperlipidemia (Chronic) Depression (Chronic) Vitamin D deficiency (Chronic) History of colostomy (Chronic) Medical History Anemia (05/03/13) Hemoglobin 8.2. Anemia Depression Diabetes mellitus Diverticulitis Recurrent. S/p high risk hemicolectomy in the setting of sepsis and hypotension 03/22/2013. Complication of a stomal leak resulting in an abdominal abscess. [place] [facility] [place] with sepsis syndrome and had an abdominal abscess drained. Completed rehab at [facility] with discharge most recently on after extensive dressing care of the abdominal wound with a wound VAC. 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 Leukocytosis. Intermittently febrile. Fall Gastroesophageal reflux disease GERD (gastroesophageal reflux disease) Hepatitis C Recent negative viral count. History of breast cancer History of hepatitis C History of incisional hernia History of renal failure Migraine Morbid obesity Osteopenia Palliative care patient Vitamin D deficiency Surgical History Colectomy H/O mastectomy Hernia Repair, Incisional x2 S/P cholecystectomy Family History Mother No problems noted. Father No problems noted. Social History Smoking/Tobacco Use Status: Former Tobacco Use Smoking risk assessment performed?: Yes Alcohol Intake: never Drug use: Never Substance use type: does not use Do you feel safe at home: Yes Do you feel safe in your relationship?: Yes Meds Allergies and Home Medications Allergies Allergy/AdvReac Type Severity Reaction Status Date / Time epinephrine Allergy Severe chest Unverified 09/01/22 00:16 pain/heart attack Penicillins Allergy Intermediate rsh fever Unverified 09/01/22 00:16 banana [Banana] Allergy Unverified 09/01/22 00:16 NSAIDS (Non-Steroidal Allergy unkown Unverified 09/01/22 00:16 Anti-Inflamma Sulfa (Sulfonamide Allergy rash,fever Unverified 09/01/22 00:16 Antibiotics) Tetracyclines Allergy rash fever Unverified 09/01/22 00:16 sodium polystyrene sulfonate AdvReac Severe tachy/dyspn Unverified 09/01/22 00:16 [From Kayexalate] ea/rash Niacin Preparations AdvReac Intermediate flushing Unverified 09/01/22 00:16 Home Medications Medication Instructions Recorded Confirmed Type calcium carbonate 600 mg-vitamin 1 ea PO DAILY 05/10/13 03/27/22 History D3 10 mcg (400 unit) tablet (Calcium 600 + D(3)) simvastatin 40 mg tablet (Zocor) 40 mg PO HS 05/10/13 03/27/22 History albuterol sulfate 90 mcg/actuation 2 puff inhalation Q4H 12/08/20 03/27/22 History aerosol inhaler (Ventolin HFA) cholecalciferol (vitamin D3) 50 4,000 unit PO DAILY 11/05/21 03/27/22 History mcg (2,000 unit) tablet duloxetine 60 mg capsule,delayed 60 mg PO BID 11/05/21 03/27/22 History release glipizide 5 mg tablet 10 mg PO BID 11/05/21 03/27/22 History omeprazole 40 mg capsule,delayed 40 mg PO DAILY 11/05/21 03/27/22 History release pregabalin 50 mg capsule 50 mg PO TID 11/05/21 03/27/22 History metoprolol succinate 25 mg 25 mg PO DAILY #30 tabs 11/09/21 03/27/22 Rx tablet,extended release 24 hr magnesium oxide 400 mg PO BID #60 tabs 12/02/21 03/27/22 Rx quetiapine 25 mg tablet 12.5 mg PO QPM #15 tabs 12/02/21 03/27/22 Rx lisinopril 10 mg tablet 10 mg PO DAILY 03/16/22 03/27/22 History tramadol 50 mg tablet 100 mg PO QHS 03/17/22 03/27/22 History aspirin 81 mg chewable tablet 81 mg PO DAILY 03/24/22 03/27/22 History ferrous sulfate 325 mg (65 mg 325 mg PO BID@1000,2200 #0 tabs 03/24/22 03/27/22 Rx iron) tablet lidocaine 5 % topical patch 2 patch topical HS #0 ea 03/24/22 03/27/22 Rx nystatin 100,000 unit/gram topical 1 applic topical TID 03/24/22 03/27/22 His tory cream polyethylene glycol 3350 17 gram 17 g PO DAILY PRN PRN Constipation 03/24/22 03/27/22 Rx oral powder packet #0 ea sodium zirconium cyclosilicate 10 10 g PO DAILY 03/24/22 03/27/22 History gram oral powder packet (Lokelma) insulin glargine 100 unit/mL (3 25 unit (0.25 mL) subcut BID #0 mL 04/03/22 03/27/22 Rx mL) subcutaneous pen (Lantus Solostar U-100 Insulin) Exam Narrative Exam Narrative: Gen: NAD, normal respiratory effort, obese HENT: PERRL Chest: No respiratory distress, normal appearance of chest, diminished breath sounds but no crackles or wheezing Heart: regular rate and rhythym, no murmurs, rubs or gallops Abdomen: Non-distended, soft, non tender Extremities: No clubbing, edema, cyanosis, rashes Neuro: AAOx3 , non focal Psych: cooperative, appropriate mental affect Results Labs Result diagrams: 08/31/22 23:30 09/01/22 00:30 Labs: Laboratory Results - last 24 hr 08/31/22 08/31/22 08/31/22 23:30 23:30 23:35 WBC 13.33 H RBC 4.37 Hgb 12.6 Hct 41.5 MCV 95 MCH 28.8 MCHC 30.4 L RDW 13.6 Plt Count 148 MPV 9.3 Immature Gran % 0.8 Neutrophils % 83.8 Lymphocytes % 7.1 Monocytes % 4.3 Eosinophils % 3.5 Basophils % 0.5 Nucleated RBC % 0.0 Absolute Neutrophils 11.17 H Absolute Lymphocytes 0.95 L Absolute Monocytes 0.57 Absolute Eosinophils 0.47 Absolute Basophils 0.07 PT INR APTT Sodium Potassium Chloride Carbon Dioxide Anion Gap BUN Creatinine Est GFR (CKD-EPI 2020) Glucose Calcium Magnesium Total Bilirubin AST ALT Alkaline Phosphatase Troponin I NT-Pro-B Natriuret Pep Total Protein Albumin Urine Color Yellow Urine Clarity Cloudy Urine pH 5.5 Ur Specific [place] 1.025 Urine Protein 30 H Urine Ketones Negative Urine Blood Negative Urine Nitrite Positive H Urine Bilirubin Negative Urine Urobilinogen 0.2 Ur Leukocyte Esterase Small H Urine RBC Negative Urine WBC >50 H Ur Epithelial Cells Few Urine Crystals Negative Urine Bacteria Few Urine Mucus Negative Ur Culture Indicated? Yes Urine Glucose Negative COVID-19 Source Nasopharynx SARS-CoV-2 (PCR) Negative Influenza Type A (PCR) Negative Influenza Type B (PCR) Negative RSV (PCR) Negative 08/31/22 08/31/22 08/31/22 23:40 23:49 23:49 WBC RBC Hgb Hct MCV MCH MCHC RDW Plt Count MPV Immature Gran % Neutrophils % Lymphocytes % Monocytes % Eosinophils % Basophils % Nucleated RBC % Absolute Neutrophils Absolute Lymphocytes Absolute Monocytes Absolute Eosinophils Absolute Basophils PT 9.8 INR 1.0 APTT 19.9 L Sodium 135 L Potassium 7.3 H* Chloride 100 Carbon Dioxide 30.5 Anion Gap 4.5 BUN 40 H Creatinine 1.8 H Est GFR (CKD-EPI 2020) 29.75 Glucose 285 H Calcium 9.2 Magnesium 1.3 L Total Bilirubin 0.4 AST 19 ALT 14 Alkaline Phosphatase 142 H Troponin I < 50 NT-Pro-B Natriuret Pep 171 Total Protein 8.1 Albumin 3.0 L Urine Color Cancelled Urine Clarity Cancelled Urine pH Cancelled Ur Specific [place] Cancelled Urine Protein Cancelled Urine Ketones Cancelled Urine Blood Cancelled Urine Nitrite Cancelled Urine Bilirubin Cancelled Urine Urobilinogen Cancelled Ur Leukocyte Esterase Cancelled Urine RBC Urine WBC Ur Epithelial Cells Urine Crystals Urine Bacteria Urine Mucus Ur Culture Indicated? Urine Glucose Cancelled COVID-19 Source SARS-CoV-2 (PCR) Influenza Type A (PCR) Influenza Type B (PCR) RSV (PCR) 09/01/22 00:30 WBC RBC Hgb Hct MCV MCH MCHC RDW Plt Count MPV Immature Gran % Neutrophils % Lymphocytes % Monocytes % Eosinophils % Basophils % Nucleated RBC % Absolute Neutrophils Absolute Lymphocytes Absolute Monocytes Absolute Eosinophils Absolute Basophils PT INR APTT Sodium Potassium 5.0 D Chloride Carbon Dioxide Anion Gap BUN Creatinine Est GFR (CKD-EPI 2020) Glucose Calcium Magnesium Total Bilirubin AST ALT Alkaline Phosphatase Troponin I NT-Pro-B Natriuret Pep Total Protein Albumin Urine Color Urine Clarity Urine pH Ur Specific [place] Urine Protein Urine Ketones Urine Blood Urine Nitrite Urine Bilirubin Urine Urobilinogen Ur Leukocyte Esterase Urine RBC Urine WBC Ur Epithelial Cells Urine Crystals Urine Bacteria Urine Mucus Ur Culture Indicated? Urine Glucose COVID-19 Source SARS-CoV-2 (PCR) Influenza Type A (PCR) Influenza Type B (PCR) RSV (PCR) Last Vital Signs Pulse 114 H 08/31/22 22:58 Resp 20 08/31/22 22:58 BP 131/60 08/31/22 22:58 Pulse Ox 93 08/31/22 22:58 Time Spent Time spent with Patient: 40-54 minutes Time was spent: preparing to see the patient(eg.review tests), obtaining and/or reviewing separately otained hiistory, ordering medications,tests, procedures, referring, communicating with other health resident care manager and indepentently interpreting results
[2022-09-01 02:26] LABS: Troponin I < 50 ng/L (<or=60)
[2022-09-01] MEDS: traMADol 50 MG TAB 100 MG PO ×2 (02:46→20:44)
[2022-09-01] MEDS: Normal Saline 1,000 ML 150 ML IV (02:58)
[2022-09-01] MEDS: Heparin 5,000 UNITS/ML VIAL 5000 UNITS SC ×3 (06:25→20:55)
[2022-09-01 06:49] LABS: Abs Immature Grans 0.07 10^3/uL (0.0-0.06); Absolute Basophil Count 0.04 10^3/uL (0.0-0.2); Absolute Eosinophil Count 0.28 10^3/uL (0.0-0.7); Absolute Lymphocyte Count 1.39 10^3/uL (1.2-3.4); Basophils % 0.3; Eosinophils % 2.3; HCT 37.6 % (36.0-46.0); HGB 11.2 g/dL (11.2-15.7); Immature Grans % 0.6; Lymphocytes % 11.5; MCH 28.6 pg (27.0-33.0); MCHC 29.8 % (32.0-36.0); MCV 96 fL (80-95); MPV 9.5 fL (8.0-11.0); Monocytes % 6.9; Neutrophils % 78.4; Platelet Count 151 10^3/uL (130-400); RBC 3.92 10^6/uL (3.93-5.22); RDW 13.7 % (11.7-14.6); RDW-SD 48.6 fL
[2022-09-01 06:53] LABS: Absolute Monocyte Count 0.83 10^3/uL (0.1-0.8); Absolute Neutrophil Count 9.49 10^3/uL (1.2-6.7)
[2022-09-01 07:00] LABS: Anion Gap 6.1 mmol/L (3-11); BUN 41 mg/dL (7-18); CO2 31.9 mmol/L (21.0-32.0); CREATININE 1.7 mg/dL (0.55-1.02); Calcium 9.1 mg/dL (8.5-10.1); Chloride 103 mmol/L (98-107); Estimated GFR 31.86 (mL/min/1.73m2); Glucose 177 mg/dL (74-106); Sodium 141 mmol/L (136-145)
[2022-09-01] MEDS: Metoprolol CR 25 MG TABCR PO (08:07)
[2022-09-01] MEDS: Omeprazole 20 MG CAPCR 40 MG PO (08:07)
[2022-09-01] MEDS: Aspirin 81 MG CHEW PO (08:07)
[2022-09-01] MEDS: Pregabalin 50 MG CAP PO ×2 (08:07→14:08)
[2022-09-01] MEDS: DULoxetine 30 MG CAP 60 MG PO ×2 (08:07→20:43)
[2022-09-01] MEDS: Magnesium Oxide 400 MG TAB PO ×2 (08:08→20:44)
[2022-09-01] MEDS: Lisinopril 10 MG TAB PO (08:08)
[2022-09-01] MEDS: Sodium Zirconium Cyclosilicate 10 GM PKT PO (08:54)
--- NOTE | 2022-09-01 09:18 | IN_ITS ---
PT Notes Visit Reasons: Urinary tract infection Physical Therapy Inpatient Initial Evaluation Date: 09/01/2022 Referring Doctor: Ashtyn Kc MD PT Orders: PT CONSULT: Eval/Treat Precautions: Fall. Standard. Activity as tolerated. Patient Profile/Admitting Diagnosis: Raven is a 72-year-old female who presented to the ED on 08/31/2022 due to 1 week of progressive weakness, 4 days of cough, and 2 days of shortness of breath with repeated falls earlier this week. Patient is admitted to [facility] for management of acute urinary tract infection, CHF, CKD, DM type II, hyperlipidemia, depression, and COPD. PMHX: All Active Problems? COPD (chronic obstructive pulmonary disease) (Chronic) Acute UTI (Acute) COPD exacerbation (Acute) CHF (congestive heart failure) (Chronic) Fall (Acute) Anemia (Chronic) Mass of left ovary (Acute) Chronic kidney disease (Chronic) Essential hypertension (Chronic) Diabetes mellitus type 2 (Chronic) On MetforminBack pain (Acute) Morbid obesity (Chronic) Hyperlipidemia (Chronic) Depression (Chronic) Vitamin D deficiency (Chronic) History of colostomy (Chronic) Medical History? Anemia (05/03/13) Hemoglobin 8.2.Anemia Depression Diabetes mellitus Diverticulitis Recurrent.? S/p high risk hemicolectomy in the setting of sepsis and hypotension 03/22/2013. Complication of a stomal leak resulting in an abdominal abscess.? Readmitted to [facility] [place] 05/03/13 emergently with sepsis syndrome and had an abdominal abscess drained. ? Completed rehab at [facility] with discharge most recently on after extensive dressing care of the abdominal wound with a wound VAC. 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 Leukocytosis.? Intermittently febrile.Fall Gastroesophageal reflux disease GERD (gastroesophageal reflux disease) Hepatitis C Recent negative viral count.History of breast cancer History of hepatitis C History of incisional hernia History of renal failure Migraine Morbid obesity Osteopenia Palliative care patient Vitamin D deficiency Surgical History? Colectomy H/O mastectomy Hernia Repair, Incisional x2 S/P cholecystectomy Social History/Home Situation: Lives with significant other in a mobile home with a ramp to enter and alternate 3 steps to enter.? Bed-bound since March 2022. Equipment Owned/DME: Front-wheeled walker, wheelchair Subjective: I cannot do anything! Patient states that she mostly stays in bed now. Complains of pain in low back, B legs, and feet with weight bearing. When asked if somebody is able to assist at home after she voids urine, she states that she tries to manage on her own. Only willing to stand up with lift assist for this session. Objective: General Observation:? Supine in bed.? Colostomy bag in place.? High BMI.? Randle catheter in place. Mental Status: Alert and oriented as to person, place, time, and purpose. Able to pay attention, focus, and respond appropriately. Pain: Moderate to severe pain in B feet to touch Vital Signs: Within normal limits as closely monitored by nursing staff ROM: Right Upper Extremity: ? Shoulder Flexion lacks 50% of AROM. Shoulder abduction lacks 50% of AROM. Elbow flexion WFL. Wrist flexion WFL. Functional opening and closing of hand WFL. Left Upper Extremity:? Shoulder Flexion lacks 50% of AROM. Shoulder abduction lacks 50% of AROM. Elbow flexion WFL. Wrist flexion WFL. Functional opening and closing of hand WFL. Right Lower Extremity: Hip flexion unable beyond 90 while seated at edge of bed. Hip abduction 10 degrees. Knee flexion 0 to 90 degrees. Ankle dorsiflexion to neutral only. Ankle plantarflexion WFL. Left Lower Extremity: Hip flexion unable beyond 90 while seated at edge of bed. Hip abduction 10 degrees. Knee flexion 0 to 90 degrees. Ankle dorsiflexion to neutral only. Ankle plantarflexion WFL. Strength: Right Upper Extremity: Shoulder flexors 3-/5. Shoulder abductors 3-/5. Elbow flexors 3-/5. Elbow extensors 3-/5. Real Estate Agent strong. Left Upper Extremity: Shoulder flexors 3-/5. Shoulder abductors 3-/5. Elbow flexors 3-/5. Elbow extensors 3-/5. Real Estate Agent strong. Right Lower Extremity: Hip flexors 2-/5. Hip abductors 2-/5. Knee flexors 2-/5. Knee extensor 2-/5. Ankle dorsiflexors 2-/5. Ankle plantarflexors 2-/5. Left Lower Extremity: Hip flexors 2-/5. Hip abductors 2-/5. Knee flexors 2-/5. Knee extensor 2-/5. Ankle dorsiflexors 2-/5. Ankle plantarflexors 2-/5. Bed Mobility/Transfers: Supine to sit with moderate assist of 2 with HOB at 45 degrees Sit to stand with moderate assist of 2 using STEDY lift Stand to sit with moderate assist of 2 using STEDY lift Bed to reclining chair with moderate assist of 2 using STEDY lift Gait: Unable Balance: Static Sitting: Fair Dynamic Sitting: Poor Static Standing: Fair Dynamic Standing: Poor Special Tests: Mobility Limitations Standardized Measure [facility] AM-PAC 6 clicks Basic Mobility Inpatient Short Form: Raw Score: 6 CMS Score: 100% deficit? ? ? Informed Consent/Education:? Patient was instructed in purpose of PT consult and plan of care. Agreeable to proceed with established PT POC to achieve personal goals. ASSESSMENT: Patient unable and fearful to ambulate, limited bed mobility skills, increased fall risk, and ADL dependence resulting from acute urinary tract infection, CHF, CKD, DM type II, hyperlipidemia, depression, and COPD.? Limited ability of significant other to help due to own mobility issues.? Patient presents with clinical signs and symptoms consistent with current/admitting diagnoses that have resulted to mobility limitations, gait instability, generalized weakness, and overall ADL decline as demonstrated by the following impairment level findings: 1.? Decreased strength to B UE/LE major muscle groups 2.? Impaired sitting/standing balance 3.? Impaired activity tolerance 4.? Limitation of joint range of motion in back and B UE/LE 5.? Shortness of breath 6.? Low back pain Impairments are contributing to the following functional limitations: 1.? Decline in bed mobility skills 2.? Decline in transfer skills 3.? Unable and fearful to ambulation without assistive device and physical assistance 4.? Increased completion time for mobility ADL performance 5.? Increased risk for falls 6.? Difficulty with managing steps alone safely Patient is assessed as a 28720 high complexity based on the following: History: 72-year-old femalewith past medical history as indicated above Examination: Demonstrable impairment in strength, balance, and mobility level with underlying impairments and functional limitations as exhibited above as well as deficit score of 69% utilizing the [facility] Mobility Inpatient Short Form Presentation: Evolving Decision Makin high complexity Goals: Goals X1 week 1. Supine-Sit minimal assist 2. Sit-Supine minimal assist 3. Sit-Stand moderate assist 4. Stand-Sit moderate assist with bariatric FWW 5. Bed-Chair moderate assist with bariatric FWW 6. Chair-Bed moderate assist with bariatric FWW 7. Fair static and dynamic standing balance/tolerance Plan of Care/Treatment Plan: 1-2x/day, 7 days/week x 1 week. Plan of care has been reviewed with the THERMAL CUTTING MACHINE OPERATOR providing the service under Physical Therapy direction. Initiate Physical Therapy intervention for pain management as needed, strengthening, bed mobility, transfers, gait, stairs, balance training, and use of assistive device. DISCHARGE RECOMMENDATIONS: [] ? Home with no services [] [] ? Home with services [specify] [] ? Home with outpatient PT [] [X] ? SNF for continued rehabilitation.? Patient will benefit from detention facility placement for continued skilled physical therapy services in order to progress mobility level, strength, and balance in preparation for a safe discharge to home. [] ? Certified Court Interpreter Care [] [] ? SNF versus LTC based on ability to participate and progress [] TREATMENT CODE/TIME: 67156? x 30 minutes, 63974 x 20 minutes beginning at 9:18 AM. Thank you for the opportunity to participate in the care of this patient. Selene Collado PT, DPT, CLT [facility] [place], [place]
[2022-09-01] MEDS: Albuterol HFA 8 GM 60 PUFF INH IH ×5 (09:25→23:52)
[2022-09-01] MEDS: Insulin Glargine 300 UNITS/3 ML PEN 25 UNITS SC ×2 (09:53→21:07)
[2022-09-01] MEDS: Ferrous Sulfate 325 MG TAB PO ×2 (09:53→20:44)
[2022-09-01] MEDS: Nystatin CREAM 15 GM TUBE TP ×3 (09:53→20:46)
--- NOTE | 2022-09-01 10:04 | PGE_ITS ---
Date of Service Date of service: 09/01/22 Time of Service: 10:04 Objective Last Vital Signs Temp 36.7 C 09/01/22 07:59 Pulse 101 H 09/01/22 07:59 Resp 20 09/01/22 07:59 BP 124/76 09/01/22 07:59 Pulse Ox 94 09/01/22 09:32 Laboratory Results - last 24 hr 08/31/22 08/31/22 08/31/22 23:30 23:30 23:35 WBC 13.33 H RBC 4.37 Hgb 12.6 Hct 41.5 MCV 95 MCH 28.8 MCHC 30.4 L RDW 13.6 Plt Count 148 MPV 9.3 Immature Gran % 0.8 Neutrophils % 83.8 Lymphocytes % 7.1 Monocytes % 4.3 Eosinophils % 3.5 Basophils % 0.5 Nucleated RBC % 0.0 Absolute Neutrophils 11.17 H Absolute Lymphocytes 0.95 L Absolute Monocytes 0.57 Absolute Eosinophils 0.47 Absolute Basophils 0.07 PT INR APTT Sodium Potassium Chloride Carbon Dioxide Anion Gap BUN Creatinine Est GFR (CKD-EPI 2020) Glucose Calcium Magnesium Total Bilirubin AST ALT Alkaline Phosphatase Troponin I NT-Pro-B Natriuret Pep Total Protein Albumin Urine Color Yellow Urine Clarity Cloudy Urine pH 5.5 Ur Specific [place] 1.025 Urine Protein 30 H Urine Ketones Negative Urine Blood Negative Urine Nitrite Positive H Urine Bilirubin Negative Urine Urobilinogen 0.2 Ur Leukocyte Esterase Small H Urine RBC Negative Urine WBC >50 H Ur Epithelial Cells Few Urine Crystals Negative Urine Bacteria Few Urine Mucus Negative Ur Culture Indicated? Yes Urine Glucose Negative COVID-19 Source Nasopharynx SARS-CoV-2 (PCR) Negative Influenza Type A (PCR) Negative Influenza Type B (PCR) Negative RSV (PCR) Negative 08/31/22 08/31/22 08/31/22 23:40 23:49 23:49 WBC RBC Hgb Hct MCV MCH MCHC RDW Plt Count MPV Immature Gran % Neutrophils % Lymphocytes % Monocytes % Eosinophils % Basophils % Nucleated RBC % Absolute Neutrophils Absolute Lymphocytes Absolute Monocytes Absolute Eosinophils Absolute Basophils PT 9.8 INR 1.0 APTT 19.9 L Sodium 135 L Potassium 7.3 H* Chloride 100 Carbon Dioxide 30.5 Anion Gap 4.5 BUN 40 H Creatinine 1.8 H Est GFR (CKD-EPI 2020) 29.75 Glucose 285 H Calcium 9.2 Magnesium 1.3 L Total Bilirubin 0.4 AST 19 ALT 14 Alkaline Phosphatase 142 H Troponin I < 50 NT-Pro-B Natriuret Pep 171 Total Protein 8.1 Albumin 3.0 L Urine Color Cancelled Urine Clarity Cancelled Urine pH Cancelled Ur Specific [place] Cancelled Urine Protein Cancelled Urine Ketones Cancelled Urine Blood Cancelled Urine Nitrite Cancelled Urine Bilirubin Cancelled Urine Urobilinogen Cancelled Ur Leukocyte Esterase Cancelled Urine RBC Urine WBC Ur Epithelial Cells Urine Crystals Urine Bacteria Urine Mucus Ur Culture Indicated? Urine Glucose Cancelled COVID-19 Source SARS-CoV-2 (PCR) Influenza Type A (PCR) Influenza Type B (PCR) RSV (PCR) 09/01/22 09/01/22 09/01/22 00:30 02:00 06:13 WBC RBC Hgb Hct MCV MCH MCHC RDW Plt Count MPV Immature Gran % Neutrophils % Lymphocytes % Monocytes % Eosinophils % Basophils % Nucleated RBC % Absolute Neutrophils Absolute Lymphocytes Absolute Monocytes Absolute Eosinophils Absolute Basophils PT INR APTT Sodium 141 Potassium 5.0 D 5.0 Chloride 103 Carbon Dioxide 31.9 Anion Gap 6.1 BUN 41 H Creatinine 1.7 H Est GFR (CKD-EPI 2020) 31.86 Glucose 177 H Calcium 9.1 Magnesium Total Bilirubin AST ALT Alkaline Phosphatase Troponin I < 50 NT-Pro-B Natriuret Pep Total Protein Albumin Urine Color Urine Clarity Urine pH Ur Specific [place] Urine Protein Urine Ketones Urine Blood Urine Nitrite Urine Bilirubin Urine Urobilinogen Ur Leukocyte Esterase Urine RBC Urine WBC Ur Epithelial Cells Urine Crystals Urine Bacteria Urine Mucus Ur Culture Indicated? Urine Glucose COVID-19 Source SARS-CoV-2 (PCR) Influenza Type A (PCR) Influenza Type B (PCR) RSV (PCR) 09/01/22 06:13 WBC 12.10 H RBC 3.92 L Hgb 11.2 Hct 37.6 MCV 96 H MCH 28.6 MCHC 29.8 L RDW 13.7 Plt Count 151 MPV 9.5 Immature Gran % 0.6 Neutrophils % 78.4 Lymphocytes % 11.5 Monocytes % 6.9 Eosinophils % 2.3 Basophils % 0.3 Nucleated RBC % 0.0 Absolute Neutrophils 9.49 H Absolute Lymphocytes 1.39 Absolute Monocytes 0.83 H Absolute Eosinophils 0.28 Absolute Basophils 0.04 PT INR APTT Sodium Potassium Chloride Carbon Dioxide Anion Gap BUN Creatinine Est GFR (CKD-EPI 2021) Glucose Calcium Magnesium Total Bilirubin AST ALT Alkaline Phosphatase Troponin I NT-Pro-B Natriuret Pep Total Protein Albumin Urine Color Urine Clarity Urine pH Ur Specific [place] Urine Protein Urine Ketones Urine Blood Urine Nitrite Urine Bilirubin Urine Urobilinogen Ur Leukocyte Esterase Urine RBC Urine WBC Ur Epithelial Cells Urine Crystals Urine Bacteria Urine Mucus Ur Culture Indicated? Urine Glucose COVID-19 Source SARS-CoV-2 (PCR) Influenza Type A (PCR) Influenza Type B (PCR) RSV (PCR)
--- NOTE | 2022-09-01 11:32 | PTTR_ITS ---
Date of service: 09/01/22 Time of Service: 11:32 PT Notes Visit Reasons: Urinary tract infection Physical Therapy Inpatient Treatment Note Date: 09/01/2022 Precautions: Fall. Standard. Activity as tolerated. Subjective: Adamant about going back to bed as she states that she is not comfortable on the chair, did not want to wait after lunch to transfer. Objective: General Observation:? Supine in bed.? Colostomy bag in place.? High BMI.? Randle catheter in place. Mental Status: Alert and oriented as to person, place, time, and purpose. Able to pay attention, focus, and respond appropriately. Pain: Moderate to severe pain in B feet to touch Vital Signs: Within normal limits as closely monitored by nursing staff Bed Mobility/Transfers: Supine to sit with moderate assist of 2 with HOB at 45 degrees Sit to stand with maximal assist of 2 using STEDY lift; needed to try x 3 with assist of 2 Stand to sit with moderate assist of 2 using STEDY lift Reclining chair to bed with moderate assist of 2 using STEDY lift Gait: Unable Balance: Static Sitting: Fair Dynamic Sitting: Poor Static Standing: Fair Dynamic Standing: Poor ASSESSMENT: Patient unable and fearful to ambulate, limited bed mobility skills, increased fall risk, and ADL dependence resulting from acute urinary tract infection, CHF, CKD, DM type II, hyperlipidemia, depression, and COPD.? Limited ability of significant other to help due to own mobility issues.? Patient presents with clinical signs and symptoms consistent with current/admitting diagnoses that have resulted to mobility limitations, gait instability, generalized weakness, and overall ADL decline as demonstrated by the following impairment level findings: DISCHARGE RECOMMENDATIONS: [] ? Home with no services [] [] ? Home with services [specify] [] ? Home with outpatient PT [] [X] ? SNF for continued rehabilitation.? Patient will benefit from halfway facility placement for continued skilled physical therapy services in order to progress mobility level, strength, and balance in preparation for a safe discharge to home. [] ? [facility] [] [] ? SNF versus LTC based on ability to participate and progress [] TREATMENT CODE/TIME: ?40621 x 25 minutes beginning at 11:32 AM.
[2022-09-01] MEDS: Insulin Aspart 300 UNITS/3 ML PEN SC ×2 (11:45→16:50)
--- NOTE | 2022-09-01 13:44 | W.PM.PROGNOT ---
Date of Service Date of service: 09/01/22 Time of Service: 09:00 Assessment and Plan Assessment and plan (1) Acute UTI: Status: Acute Assessment and plan: In 03/2023 patient was admitted for ceftriaxone sensitive Serretia.Will wait urine culture results to update antibiotic therapy if needed. We will continue ceftriaxone Patient has an indwelling urinary catheter; it might be beneficial for better outcomes to discontinue as there are no indications for it at this time. CBC in AM (2) Pain: Status: Acute Assessment and plan: Patient is on Lyrica which as been approved for neuropathic diabetic pain. She is c/o burning to her feet and we will increase her lyrica dose to 75 mg TID and reassessed in 3 to 5 days Due to her Allergy and CKD, NSAIDs are not an option at this time. We want to also try to give her Acetaminophen 650 mg every 8 hours schedule for 48 hours and evaluate the effectiveness (3) CHF (congestive heart failure): Status: Chronic Assessment and plan: Last echo 03/2022 with an LVEF of 55.9%.Patient not currently exacerbated. - continue home meds - monitor I/O's and daily weight (4) Chronic kidney disease: Status: Chronic Assessment and plan: Patient c/o CVA tenderness and has a Cr of 1.2 in the context of a UTI. She was also fluid resuscitated in the ED with 1l of IVF. We will consider a renal US with persistent and increased symptoms Her potassium was 7.3 initially and 5.0 when reverified. She received Lokelma and we will recheck her K this PM; PM K= 4.5 - BMP in AM - I/O's Spoke to the office of Dr. Luo at [facility], pt did not f/u after she was discharged in 03/2023.Her last visit was in 12/2021. She also mentioned that she was not aware that he had to take her Lokelma at home. (5) Diabetes mellitus type 2: Status: Chronic Assessment and plan: Glucose 177 to 209 -On lantus, will add SSI - AC&HS fingersticks (6) Morbid obesity: Status: Chronic Assessment and plan: Concern for OHS given prior blood gases. Will monitor for signs of worsening hypercapnia - should have outpatient sleep study (7) Hyperlipidemia: Status: Chronic Assessment and plan: continue home meds (8) Depression: Status: Chronic Assessment and plan: Continue home meds (9) COPD (chronic obstructive pulmonary disease): Status: Chronic Assessment and plan: Former smoking , no formal testing available - albuterol prn (10) Fall: Status: Acute Assessment and plan: Patient reporting staying down for hours after falls until her SO comes home. PT assessment Will consult with case management for devices for safety such as life-alert (11) On deep vein thrombosis (DVT) prophylaxis: Status: Acute Assessment and plan: Patient is on Heaprin 5000 units SQ Q 8 hours (12) Discharge planning issues: Status: Acute Assessment and plan: Patient will return home when medically stable Care management is investigating on devices to improve safety at home Discussed with Dr. De Guzman Subjective Subjective Interval history since last seen: Patient stating that she is feeling slightly better, she still c/o of chills, no fever or night sweats.reporting burning pain her feet at 8/10 She denies dizziness, reports generalized weakness Denies difficulty breathing, no cough Denies chest pain or palpitations Denies nausea, hematochezia, reports that her colostomy functions adequately Denies dysuria at this time Reports difficulty mobilizing herself and frequents falls at home Exam Narrative Exam Narrative: patient is sitting in the recliner at this time. She is speaking in full sentences, she is somnolent but still awake enough to continue interview Head is normocephalic, atraumatic Facial structures are well aligned Lungs are bilaterally clear Bilateral mastectomy S1, S2 no murmur, no LE edema, pulses are present to extremities Abdomen is large, non-tender, colostomy to right upper abdomen patent and intact, Randle in place draining clear yellow urine Const General: cooperative Objective Last Vital Signs Temp 98.1 F 09/01/22 07:59 Pulse 101 H 09/01/22 07:59 Resp 20 09/01/22 07:59 BP 124/76 09/01/22 07:59 Pulse Ox 94 09/01/22 09:32 Laboratory Results - last 24 hr 08/31/22 08/31/22 08/31/22 23:30 23:30 23:35 WBC 13.33 H RBC 4.37 Hgb 12.6 Hct 41.5 MCV 95 MCH 28.8 MCHC 30.4 L RDW 13.6 Plt Count 148 MPV 9.3 Immature Gran % 0.8 Neutrophils % 83.8 Lymphocytes % 7.1 Monocytes % 4.3 Eosinophils % 3.5 Basophils % 0.5 Nucleated RBC % 0.0 Absolute Neutrophils 11.17 H Absolute Lymphocytes 0.95 L Absolute Monocytes 0.57 Absolute Eosinophils 0.47 Absolute Basophils 0.07 PT INR APTT Sodium Potassium Chloride Carbon Dioxide Anion Gap BUN Creatinine Est GFR (CKD-EPI 2020) Glucose Calcium Magnesium Total Bilirubin AST ALT Alkaline Phosphatase Troponin I NT-Pro-B Natriuret Pep Total Protein Albumin Urine Color Yellow Urine Clarity Cloudy Urine pH 5.5 Ur Specific [place] 1.025 Urine Protein 30 H Urine Ketones Negative Urine Blood Negative Urine Nitrite Positive H Urine Bilirubin Negative Urine Urobilinogen 0.2 Ur Leukocyte Esterase Small H Urine RBC Negative Urine WBC >50 H Ur Epithelial Cells Few Urine Crystals Negative Urine Bacteria Few Urine Mucus Negative Ur Culture Indicated? Yes Urine Glucose Negative COVID- Source Nasopharynx SARS-CoV-2 (PCR) Negative Influenza Type A (PCR) Negative Influenza Type B (PCR) Negative RSV (PCR) Negative 08/31/22 08/31/22 08/31/22 23:40 23:49 23:49 WBC RBC Hgb Hct MCV MCH MCHC RDW Plt Count MPV Immature Gran % Neutrophils % Lymphocytes % Monocytes % Eosinophils % Basophils % Nucleated RBC % Absolute Neutrophils Absolute Lymphocytes Absolute Monocytes Absolute Eosinophils Absolute Basophils PT 9.8 INR 1.0 APTT 19.9 L Sodium 135 L Potassium 7.3 H* Chloride 100 Carbon Dioxide 30.5 Anion Gap 4.5 BUN 40 H Creatinine 1.8 H Est GFR (CKD-EPI 2020) 29.75 Glucose 285 H Calcium 9.2 Magnesium 1.3 L Total Bilirubin 0.4 AST 19 ALT 14 Alkaline Phosphatase 142 H Troponin I < 50 NT-Pro-B Natriuret Pep 171 Total Protein 8.1 Albumin 3.0 L Urine Color Cancelled Urine Clarity Cancelled Urine pH Cancelled Ur Specific [place] Cancelled Urine Protein Cancelled Urine Ketones Cancelled Urine Blood Cancelled Urine Nitrite Cancelled Urine Bilirubin Cancelled Urine Urobilinogen Cancelled Ur Leukocyte Esterase Cancelled Urine RBC Urine WBC Ur Epithelial Cells Urine Crystals Urine Bacteria Urine Mucus Ur Culture Indicated? Urine Glucose Cancelled COVID-19 Source SARS-CoV-2 (PCR) Influenza Type A (PCR) Influenza Type B (PCR) RSV (PCR) 09/01/22 09/01/2223 00:30 02:00 06:13 WBC RBC Hgb Hct MCV MCH MCHC RDW Plt Count MPV Immature Gran % Neutrophils % Lymphocytes % Monocytes % Eosinophils % Basophils % Nucleated RBC % Absolute Neutrophils Absolute Lymphocytes Absolute Monocytes Absolute Eosinophils Absolute Basophils PT INR APTT Sodium 141 Potassium 5.0 D 5.0 Chloride 103 Carbon Dioxide 31.9 Anion Gap 6.1 BUN 41 H Creatinine 1.7 H Est GFR (CKD-EPI 2020) 31.86 Glucose 177 H Calcium 9.1 Magnesium Total Bilirubin AST ALT Alkaline Phosphatase Troponin I < 50 NT-Pro-B Natriuret Pep Total Protein Albumin Urine Color Urine Clarity Urine pH Ur Specific [place] Urine Protein Urine Ketones Urine Blood Urine Nitrite Urine Bilirubin Urine Urobilinogen Ur Leukocyte Esterase Urine RBC Urine WBC Ur Epithelial Cells Urine Crystals Urine Bacteria Urine Mucus Ur Culture Indicated? Urine Glucose COVID-19 Source SARS-CoV-2 (PCR) Influenza Type A (PCR) Influenza Type B (PCR) RSV (PCR) 09/01/22 06:13 WBC 12.10 H RBC 3.92 L Hgb 11.2 Hct 37.6 MCV 96 H MCH 28.6 MCHC 29.8 L RDW 13.7 Plt Count 151 MPV 9.5 Immature Gran % 0.6 Neutrophils % 78.4 Lymphocytes % 11.5 Monocytes % 6.9 Eosinophils % 2.3 Basophils % 0.3 Nucleated RBC % 0.0 Absolute Neutrophils 9.49 H Absolute Lymphocytes 1.39 Absolute Monocytes 0.83 H Absolute Eosinophils 0.28 Absolute Basophils 0.04 PT INR APTT Sodium Potassium Chloride Carbon Dioxide Anion Gap BUN Creatinine Est GFR (CKD-EPI 2020) Glucose Calcium Magnesium Total Bilirubin AST ALT Alkaline Phosphatase Troponin I NT-Pro-B Natriuret Pep Total Protein Albumin Urine Color Urine Clarity Urine pH Ur Specific [place] Urine Protein Urine Ketones Urine Blood Urine Nitrite Urine Bilirubin Urine Urobilinogen Ur Leukocyte Esterase Urine RBC Urine WBC Ur Epithelial Cells Urine Crystals Urine Bacteria Urine Mucus Ur Culture Indicated? Urine Glucose COVID-19 Source SARS-CoV-2 (PCR) Influenza Type A (PCR) Influenza Type B (PCR) RSV (PCR) Time Spent with Patient Time Spent with Patient: >50 minutes Time was spent: preparing to see the patient(eg.review tests), referring, communicating with other health hospice spiritual care coordinator and indepentently interpreting results
[2022-09-01 14:09] LABS: BUN 39 mg/dL (7-18); CREATININE 1.8 mg/dL (0.55-1.02); Calcium 8.7 mg/dL (8.5-10.1); Chloride 104 mmol/L (98-107); Estimated GFR 29.75 (mL/min/1.73m2); Glucose 209 mg/dL (74-106); Potassium 4.5 mmol/L (3.5-5.1); Sodium 140 mmol/L (136-145)
[2022-09-01] MEDS: Fluconazole 150 MG TAB PO (15:39)
--- NOTE | 2022-09-01 16:13 | INITIAL_ITS ---
- If Service Date Differs Date of service: 09/01/22 Time of Service: 16:34 Care Management Initial Assess REASON FOR HOSPITALIZATION:: UTI PAST MEDICAL HISTORY/PAST SURGICAL HISTORY:: Medical History . Anemia (05/03/13). Hemoglobin 8.2. Anemia. Depression. Diabetes mellitus. Diverticulitis. Recurrent. S/p high risk hemicolectomy in the setting of sepsis and hypotension 03/22/2013. Complication of a stomal leak resulting in an abdominal abscess. Readmitted to [facility] 05/03/13 emergently with sepsis syndrome and had an abdominal abscess drained. Completed rehab at [facility] with discharge most recently on after extensive dressing care of the abdominal wound with a wound VAC. 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 Worsening ulceration of a peristomal fistula that appears to be expanding in size. Leukocytosis. Intermittently febrile. Fall. Gastroesophageal reflux disease. GERD (gastroesophageal reflux disease). Hepatitis C. Recent negative viral count. History of breast cancer. History of hepatitis C. History of incisional hernia. History of renal failure. Migraine. Morbid obesity. Osteopenia. Palliative care patient. Vitamin D deficiency. Surgical History . Colectomy. H/O mastectomy. Hernia Repair, Incisional. x2. S/P cholecystectomy PREVIOUS FUNCTIONAL STATUS/SOCIAL/FAMILY SUPPORTS:: Raven lives in [facility] with her boyfriend Rodolfo, although most recently she has been at [facility] for short term rehab. She has three daughters who live locally. Raven uses an electric wheelchair for mobility and also has a FWW but walks very little, if at all. She has support from family and friends. CURRENT FUNCTIONAL STATUS:: Raven continues to be closely monitored. She has a history of non-compliance. CM to provide life alert resources; COA contact as well. ADVANCE DIRECTIVES:: On file. Ning shaver Has patient been provided with info about the portal/API?: Yes Did the patient sign up for the portal?: No CODE STATUS:: Full Code INSURANCE COVERAGE / FINANCIAL ISSUES:: [facility] Medicare Replacement PRIMARY CARE PHYSICIAN:: Mary Ann Luo POTENTIAL DISCHARGE NEEDS:: Follow up with PCP and plan of care PATIENT/FAMILY EDUCATION NEEDS:: Review discharge instructions regarding activity levels and medications, diet, including sodium restriction, discussion of self care needs including ask me three. ANTICIPATED BARRIERS TO DISCHARGE:: None identifed. TRANSPORTATION:: Via private vehicle with family. PLAN:: Raven will return home when ready per MD. Raven will transport via private vehicle by family. She will follow up with her PCP and discharge plan of care. CM will continue to follow.
--- NOTE | 2022-09-01 18:39 | TELEP.MEDREC ---
Date of service: 09/01/22 Time of Service: 18:39 [facility] Allergies Allergies: epinephrine Allergy (Severe, Unverified 09/01/22 00:16) chest pain/heart attack Penicillins Allergy (Intermediate, Unverified 09/01/22 00:16) rsh fever banana [Banana] Allergy (Unverified 09/01/22 00:16) NSAIDS (Non-Steroidal Anti-Inflamma Allergy (Unverified 09/01/22 00:16) unkown Sulfa (Sulfonamide Antibiotics) Allergy (Unverified 09/01/22 00:16) rash,fever Tetracyclines Allergy (Unverified 09/01/22 00:16) rash fever sodium polystyrene sulfonate [From Kayexalate] Adverse Reaction (Severe, Unverified 09/01/22 00:16) tachy/dyspnea/rash Niacin Preparations Adverse Reaction (Intermediate, Unverified 09/01/22 00:16) flushing Interview Person Interviewed: Patient could only state she took all of her medications in he bubble packs from her pharmacy. Gillian was contacted and they faxed a copy of her most recent bubble pack fill log. Quality Quality of Interview/Accuracy of Medication List: Fair Sources Sources used to compile medication list: [facility] [employer] [facility] Medication List, [facility] [employer] Changes made to Home Medication List: ADDITIONS: none DELETIONS: Miralax, Lidocaine patches, ferrous sulfate, lokelma, nystatin CHANGES: none Additional Notes Additional Notes: none Recommended Changes Recommended Changes(reason for recommendation): none Attestation: The home medication list is now updated to the best of my knowledge and is ready to be reconciled by the provider. Please contact the [facility] Medication Reconciliation Pharmacist at for any questions.
[2022-09-01] MEDS: Pregabalin 25 MG CAP 75 MG PO (20:43)
[2022-09-01] MEDS: Simvastatin 40 MG TAB PO (20:43)
[2022-09-01] MEDS: QUEtiapine 25 MG TAB 12.5 MG PO (20:45)
[2022-09-01] MEDS: Normal Saline Flush 10 ML SYR IVP (21:30)
[2022-09-02] VITALS (8 sets, daily range): BP systolic 93–142; BP diastolic 48–74; PULSE 80–97; RESP 14–20; TEMP 36–37.2; O2SAT 74–96
--- NOTE | 2022-09-02 | DI.US_ITS ---
Exam(s) US RENAL EXAM: US RENAL CLINICAL HISTORY: worsening azotemia. TECHNIQUE: العلي scale, color and spectral Doppler were used. COMPARISON: No exams were available for comparison FINDINGS: Examination is limited due to poor patient cooperation. Renal size in cm: Right: 9.3. Left: 8.1. The kidneys are grossly unremarkable. Bladder:There is a Randle catheter in place. No gross abnormality is seen in the urinary bladder. Ureteral jets: Right: Not visualized on this examination. Left: Not visualized on this examination. Prevoid vol:Less than 10 cc Postvoid vol:Less than 10 cc Renal color flow: Symmetric and within normal limits. IMPRESSION: 1. Limited examination due to poor patient cooperation. 2. No gross abnormality of the kidneys or urinary bladder. DATA REPOSITORY:
[2022-09-02] MEDS: Albuterol HFA 8 GM 60 PUFF INH IH ×6 (04:26→23:33)
[2022-09-02] MEDS: Heparin 5,000 UNITS/ML VIAL 5000 UNITS SC ×3 (06:29→21:06)
[2022-09-02 06:37] LABS: Abs Immature Grans 0.08 10^3/uL (0.0-0.06); Absolute Basophil Count 0.06 10^3/uL (0.0-0.2); Absolute Eosinophil Count 0.55 10^3/uL (0.0-0.7); Absolute Monocyte Count 0.64 10^3/uL (0.1-0.8); Absolute Neutrophil Count 5.96 10^3/uL (1.2-6.7); Basophils % 0.6; Eosinophils % 5.9; HCT 37.7 % (36.0-46.0); HGB 11.5 g/dL (11.2-15.7); Immature Grans % 0.9; Lymphocytes % 21.5; MCH 30.2 pg (27.0-33.0); MCHC 30.5 % (32.0-36.0); MCV 99 fL (80-95); MPV 9.6 fL (8.0-11.0); Monocytes % 6.9; Neutrophils % 64.2; Platelet Count 154 10^3/uL (130-400); RBC 3.81 10^6/uL (3.93-5.22); RDW 14.4 % (11.7-14.6); RDW-SD 51.1 fL; WBC 9.29 10^3/uL (4.4-10.8)
[2022-09-02 06:53] LABS: Anion Gap 6.1 mmol/L (3-11); BUN 43 mg/dL (7-18); CO2 30.9 mmol/L (21.0-32.0); CREATININE 2.2 mg/dL (0.55-1.02); Calcium 9.4 mg/dL (8.5-10.1); Chloride 105 mmol/L (98-107); Estimated GFR 23.38 (mL/min/1.73m2); Glucose 86 mg/dL (74-106); Potassium 4.4 mmol/L (3.5-5.1); Sodium 142 mmol/L (136-145)
[2022-09-02] MEDS: Normal Saline Flush 10 ML SYR IVP ×2 (08:06→19:01)
[2022-09-02] MEDS: Magnesium Oxide 400 MG TAB PO ×2 (08:07→21:04)
[2022-09-02] MEDS: Pregabalin 25 MG CAP 75 MG PO ×3 (08:07→20:59)
[2022-09-02] MEDS: Nystatin CREAM 15 GM TUBE TP ×3 (08:07→21:03)
[2022-09-02] MEDS: Aspirin 81 MG CHEW PO (08:08)
[2022-09-02] MEDS: DULoxetine 30 MG CAP 60 MG PO ×2 (08:08→21:02)
[2022-09-02] MEDS: Omeprazole 20 MG CAPCR 40 MG PO (08:08)
[2022-09-02] MEDS: Metoprolol CR 25 MG TABCR PO (08:08)
[2022-09-02] MEDS: Insulin Glargine 300 UNITS/3 ML PEN 25 UNITS SC ×2 (08:09→21:12)
[2022-09-02] MEDS: Lactated Ringers 1,000 ML 100 ML IV (09:38)
[2022-09-02] MEDS: Ferrous Sulfate 325 MG TAB PO ×2 (10:11→21:25)
--- NOTE | 2022-09-02 11:01 | PDOC.CMPRO ---
- If Service Date Differs Date of service: 09/02/22 Time of Service: 11:02 Care Management Progress Note S/O: Raven remains inpatient, Yelena from Palliative reports she will meet with Raven on Monday to revisit discharge plans. CM continues to follow. A: 72 year old female admitted to [facility] P: Per MD, anticipate Raven will remain at [facility] through the weekend. Raven will return home when ready per MD. Raven will transport via private vehicle by family. She will follow up with her PCP and discharge plan of care. CM will continue to follow.
[2022-09-02] MEDS: Insulin Aspart 300 UNITS/3 ML PEN SC ×2 (11:45→17:17)
--- NOTE | 2022-09-02 11:58 | PT.INTREAT ---
Date of service: 09/02/22 Time of Service: 08:56 PT Notes Visit Reasons: Urinary tract infection Inpatient Physical Therapy Treatment Note [facility] Date: 09/02/2022 PRECAUTIONS: Fall, Activity as tolerated SUBJECTIVE: Raven is pleasant and agreeable to getting up to the chair. She reports that she is not moving well. She reports that she uses her walker to transfer to the commode, which is located right next to her recliner, at home currently. OBJECTIVE: PAIN: Patient c/o pain on back where gait belt was being utilized BED MOBILITY/TRANSFERS Supine-sit: Mod A with HOB flat Sit-stand: Mod A x3 in a.m.; Mod A x2 with STEDY in p.m. Stand-sit: Mod A x3 in a.m.; Min A x2 with STEDY in p.m. Bed-chair: Mod A x3 Chair-bed: STEDY GAIT Assistive Device: FWW Weight bearing: Full Assist: Mod A x3 Distance: 8 steps in a.m.; in p.m. Deviation: Moderate SOB, increased fatigue, wide DIPESH, step step height and length ASSESSMENT: Patient tolerated session with c/o increased fatigue and with SOB with all activity. She was able to tolerate several steps to complete transfer from bed to chair, although requires Mod A x3. PLAN: Continue with global strengthening and general conditioning for improved mobility, as well as continued transfer training. TREATMENT CODE/TIME: Session 1: 16 minutes; 81400 (08:56) Session 2: 13 minutes; 52939 (12:18)
--- NOTE | 2022-09-02 13:55 | CHAPLAIN ---
Raven and I remembered each other from a previous admission. She said she's doing ok and didn't need anything at the moment. Her granddaughter was in to visit today. Raven said she usually sees this granddaughter every day when she's home so it was nice to have her visit here.
--- NOTE | 2022-09-02 14:12 | PGE_ITS ---
Date of Service Date of service: 09/02/22 Time of Service: 14:12 Assessment and Plan Assessment and plan (1) Acute UTI: Status: Acute Assessment and plan: growing e coli, sensitivities pending We will continue ceftriaxone Patient has an indwelling urinary catheter; it might be beneficial for better outcomes to discontinue as there are no indications for it at this time. CBC in AM (2) Pain: Status: Acute Assessment and plan: Patient is on Lyrica which as been approved for neuropathic diabetic pain. She is c/o burning to her feet and we will increase her lyrica dose to 75 mg TID and reassessed in 3 to 5 days Due to her Allergy and CKD, NSAIDs are not an option at this time. We want to also try to give her Acetaminophen 650 mg every 8 hours schedule for 48 hours and evaluate the effectiveness (3) CHF (congestive heart failure): Status: Chronic Assessment and plan: Last echo 03/2022 with an LVEF of 55.9%.Patient not currently exacerbated. - continue home meds - monitor I/O's and daily weight (4) Chronic kidney disease: Status: Chronic Assessment and plan: Patient c/o CVA tenderness and has a Cr of 1.2 in the context of a UTI. She was also fluid resuscitated in the ED with 1l of IVF. We will consider a renal US with persistent and increased symptoms Her potassium was 7.3 initially and 5.0 when reverified. She received Lokelma and we will recheck her K this PM; PM K= 4.5 - BMP in AM - I/O's Spoke to the office of Dr. Luo at [facility] [place], pt did not f/u after she was discharged in 03/2023.Her last visit was in 12/2021. She also mentioned that she was not aware that he had to take her Lokelma at home. (5) Diabetes mellitus type 2: Status: Chronic Assessment and plan: Glucose 177 to 209 -On lantus, will add SSI - AC&HS fingersticks (6) Morbid obesity: Status: Chronic Assessment and plan: Concern for OHS given prior blood gases. Will monitor for signs of worsening hypercapnia - should have outpatient sleep study (7) Hyperlipidemia: Status: Chronic Assessment and plan: continue home meds (8) Depression: Status: Chronic Assessment and plan: Continue home meds (9) COPD (chronic obstructive pulmonary disease): Status: Chronic Assessment and plan: Former smoking , no formal testing available - albuterol prn (10) Fall: Status: Acute Assessment and plan: Patient reporting staying down for hours after falls until her SO comes home. PT assessment Will consult with case management for devices for safety such as life-alert (11) On deep vein thrombosis (DVT) prophylaxis: Status: Acute Assessment and plan: Patient is on Heaprin 5000 units SQ Q 8 hours (12) Discharge planning issues: Status: Acute Assessment and plan: Patient will return home when medically stable Care management is investigating on devices to improve safety at home Discussed with Dr. De Guzman Subjective Subjective Patient reports: no new complaints, tolerating liquids well and afebrile; denies shortness of breath Interval history since last seen: some confusion Exam Const General: cooperative, comfortable, disheveled, frail appearing and ill appearing chronically Nutritional Appearance: obese Orientation: alert, awake and confused HENMT Head: normal to inspection and atraumatic Resp Effort & Inspection: normal respiratory effort Auscultation: diminished lung sounds Cardio Rate: regular rate Rhythm: regular rhythm GI Inspection: large pannus and obesity Palpation: soft General: other (incontinent) Skin General skin exam: other (yeast in groins) Neuro General: patient alert, patient awake and no focal motor deficits Extrem General: edema Objective Last Vital Signs Temp 36.3 C L 09/02/22 11:58 Pulse 89 09/02/22 11:58 Resp 14 09/02/22 11:58 BP 108/64 09/02/22 13:06 Pulse Ox 96 09/02/22 11:58 Laboratory Results - last 24 hr 09/02/22 09/02/22 06:14 06:14 WBC 9.29 RBC 3.81 L Hgb 11.5 Hct 37.7 MCV 99 H MCH 30.2 MCHC 30.5 L RDW 14.4 Plt Count 154 MPV 9.6 Immature Gran % 0.9 Neutrophils % 64.2 Lymphocytes % 21.5 Monocytes % 6.9 Eosinophils % 5.9 Basophils % 0.6 Nucleated RBC % 0.0 Absolute Neutrophils 5.96 Absolute Lymphocytes 2.00 Absolute Monocytes 0.64 Absolute Eosinophils 0.55 Absolute Basophils 0.06 Sodium 142 Potassium 4.4 Chloride 105 Carbon Dioxide 30.9 Anion Gap 6.1 BUN 43 H Creatinine 2.2 H Est GFR (CKD-EPI 2020) 23.38 Glucose 86 Calcium 9.4 Magnesium 2.0 Time Spent with Patient Time Spent with Patient: 35-49 minutes Time was spent: obtaining and/or reviewing separately otained hiistory, indepentently interpreting results and counseling the patient
[2022-09-02 16:12] LABS: Anion Gap 7.4 mmol/L (3-11); BUN 46 mg/dL (7-18); CO2 28.6 mmol/L (21.0-32.0); CREATININE 2.3 mg/dL (0.55-1.02); Chloride 102 mmol/L (98-107); Estimated GFR 22.17 (mL/min/1.73m2); Glucose 197 mg/dL (74-106); Potassium 5.6 mmol/L (3.5-5.1); Sodium 138 mmol/L (136-145)
[2022-09-02] MEDS: Furosemide 20 MG/2 ML VIAL IVP (19:01)
[2022-09-02] MEDS: QUEtiapine 25 MG TAB 12.5 MG PO ×2 (19:01→21:02)
[2022-09-02] MEDS: Lactated Ringers 1,000 ML 75 ML IV (19:34)
[2022-09-02] MEDS: traMADol 50 MG TAB 100 MG PO (21:00)
[2022-09-02] MEDS: Simvastatin 40 MG TAB PO (21:03)
[2022-09-02] MEDS: cefTRIAXone 1 GM/50 ML BAG IVPB (21:05)
[2022-09-02 21:27] LABS: Potassium 5.3 mmol/L (3.5-5.1)
[2022-09-03] VITALS (7 sets, daily range): BP systolic 107–133; BP diastolic 58–81; PULSE 71–89; RESP 16–20; TEMP 35.9–36.6; O2SAT 82–96
[2022-09-03] MEDS: Albuterol HFA 8 GM 60 PUFF INH IH ×6 (05:07→23:43)
[2022-09-03] MEDS: Heparin 5,000 UNITS/ML VIAL 5000 UNITS SC ×3 (06:01→21:26)
[2022-09-03 07:16] LABS: Abs Immature Grans 0.09 10^3/uL (0.0-0.06); Absolute Basophil Count 0.06 10^3/uL (0.0-0.2); Absolute Eosinophil Count 0.58 10^3/uL (0.0-0.7); Absolute Lymphocyte Count 1.85 10^3/uL (1.2-3.4); Absolute Monocyte Count 0.63 10^3/uL (0.1-0.8); Absolute Neutrophil Count 5.75 10^3/uL (1.2-6.7); Basophils % 0.7; Eosinophils % 6.5; HGB 10.6 g/dL (11.2-15.7); Lymphocytes % 20.6; MCH 28.9 pg (27.0-33.0); MCHC 30.3 % (32.0-36.0); MCV 95 fL (80-95); MPV 9.8 fL (8.0-11.0); Neutrophils % 64.2; Platelet Count 148 10^3/uL (130-400); RBC 3.67 10^6/uL (3.93-5.22); RDW 13.7 % (11.7-14.6); RDW-SD 47.9 fL; WBC 8.96 10^3/uL (4.4-10.8)
[2022-09-03 07:20] LABS: Anion Gap 5.9 mmol/L (3-11); BUN 43 mg/dL (7-18); CO2 29.1 mmol/L (21.0-32.0); CREATININE 1.9 mg/dL (0.55-1.02); Calcium 9.1 mg/dL (8.5-10.1); Chloride 104 mmol/L (98-107); Estimated GFR 27.88 (mL/min/1.73m2); Glucose 113 mg/dL (74-106); Sodium 139 mmol/L (136-145)
[2022-09-03] MEDS: Omeprazole 20 MG CAPCR 40 MG PO (08:05)
[2022-09-03] MEDS: Acetaminophen 325 MG TAB 650 MG PO ×2 (08:06→21:29)
[2022-09-03] MEDS: Magnesium Oxide 400 MG TAB PO ×2 (08:07→21:32)
[2022-09-03] MEDS: DULoxetine 30 MG CAP 60 MG PO ×2 (08:07→21:32)
[2022-09-03] MEDS: Aspirin 81 MG CHEW PO (08:08)
[2022-09-03] MEDS: Metoprolol CR 25 MG TABCR PO (08:08)
[2022-09-03] MEDS: Pregabalin 25 MG CAP 75 MG PO ×3 (08:08→21:30)
[2022-09-03] MEDS: Insulin Glargine 300 UNITS/3 ML PEN 25 UNITS SC ×2 (08:09→21:28)
[2022-09-03] MEDS: Nystatin CREAM 15 GM TUBE TP ×2 (08:10→21:16)
--- NOTE | 2022-09-03 09:56 | PT.INNT ---
PT Notes Visit Reasons: Urinary tract infection pt refused PT today, stating that her feet/ankle are out. She reports standing on them are too painful. She refused bed ex as well, stating she does some t/o day if she feels ok. Will check in with her tomorrow.
[2022-09-03] MEDS: Ferrous Sulfate 325 MG TAB PO ×2 (10:14→21:39)
[2022-09-03] MEDS: Insulin Aspart 300 UNITS/3 ML PEN SC ×2 (11:38→16:58)
[2022-09-03] MEDS: Lidocaine 5% Patch 2 PATCH TP (11:52)
[2022-09-03] MEDS: Fluconazole 100 MG TAB 200 MG PO (11:52)
--- NOTE | 2022-09-03 13:15 | PGE_ITS ---
Date of Service Date of service: 09/03/22 Time of Service: 13:15 Assessment and Plan Assessment and plan (1) Acute UTI: Status: Acute Assessment and plan: growing e coli, pansensitive We will continue ceftriaxone Patient has an indwelling urinary catheter for urinary retention, now draining after repositioning and irrigation. 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 She is c/o burning to her feet and we will increase her lyrica dose to 75 mg TID and reassessed in 3 to 5 days Due to her Allergy and CKD, NSAIDs are not an option at this time. continue Acetaminophen 650 mg every 8 hours schedule for 48 hours and evaluate the effectiveness (3) CHF (congestive heart failure): Status: Chronic Assessment and plan: Last echo 03/2022 with an LVEF of 55.9%.Patient not currently exacerbated. - continue home meds - monitor I/O's and daily weight (4) Chronic kidney disease: Status: Chronic Assessment and plan: creatinine climbing, IVF started. Her potassium was 7.3 initially and 5.0 when reverified. Her potassium has been stable - follow BMP - continue [place] [facility] [place] did [place] f/u after she was discharged in 03/2023.Her last visit was in 12/2021. She also mentioned that she was not aware that she had to take her Lokelma at home. ? hemolyzed sample (5) Diabetes mellitus type 2: Status: Chronic Assessment and plan: her A1C in march was 6.9, consider recheck outpatient but blood sugars controlled inpatient on diet and current regimen. -On lantus, and SSI coverage - AC&HS fingersticks (6) Morbid obesity: Status: Chronic Assessment and plan: Concern for OHS given prior blood gases. Will monitor for signs of worsening hypercapnia - should have outpatient sleep study (7) Hyperlipidemia: Status: Chronic Assessment and plan: continue home meds (8) Depression: Status: Chronic Assessment and plan: Continue home meds (9) COPD (chronic obstructive pulmonary disease): Status: Chronic Assessment and plan: Former smoking , no formal testing available - albuterol prn (10) Fall: Status: Acute Assessment and plan: Patient reporting staying down for hours after falls until her SO comes home. PT assessment Will consult with case management for devices for safety such as life-alert (11) On deep vein thrombosis (DVT) prophylaxis: Status: Acute Assessment and plan: Patient is on Heaprin 5000 units SQ Q 8 hours (12) Discharge planning issues: Status: Acute Assessment and plan: Patient will return home when medically stable Care management is investigating on devices to improve safety at home Discussed with Dr. Iqbal Subjective Subjective Interval history since last seen: c/o low back pain, increased confusion overnight, Objective Last Vital Signs Temp 35.9 C L 09/03/22 11:30 Pulse 71 09/03/22 11:30 Resp 16 09/03/22 11:30 BP 112/64 09/03/22 11:30 Pulse Ox 90 L 09/03/22 11:30 Laboratory Results - last 24 hr 09/02/22 09/02/22 09/02/22 14:24 15:35 21:12 WBC RBC Hgb Hct MCV MCH MCHC RDW Plt Count MPV Immature Gran % Neutrophils % Lymphocytes % Monocytes % Eosinophils % Basophils % Nucleated RBC % Absolute Neutrophils Absolute Lymphocytes Absolute Monocytes Absolute Eosinophils Absolute Basophils Sodium Cancelled 138 Potassium Cancelled 5.6 H D 5.3 H Chloride Cancelled 102 Carbon Dioxide Cancelled 28.6 Anion Gap Cancelled 7.4 BUN Cancelled 46 H Creatinine Cancelled 2.3 H Est GFR (CKD-EPI 2020) Cancelled 22.17 Glucose Cancelled 197 H Calcium Cancelled 9.0 09/03/22 09/03/22 06:35 06:35 WBC 8.96 RBC 3.67 L Hgb 10.6 L Hct 35.0 L MCV 95 D MCH 28.9 MCHC 30.3 L RDW 13.7 Plt Count 148 MPV 9.8 Immature Gran % 1.0 Neutrophils % 64.2 Lymphocytes % 20.6 Monocytes % 7.0 Eosinophils % 6.5 Basophils % 0.7 Nucleated RBC % 0.0 Absolute Neutrophils 5.75 Absolute Lymphocytes 1.85 Absolute Monocytes 0.63 Absolute Eosinophils 0.58 Absolute Basophils 0.06 Sodium 139 Potassium 5.0 Chloride 104 Carbon Dioxide 29.1 Anion Gap 5.9 BUN 43 H Creatinine 1.9 H Est GFR (CKD-EPI 2020) 27.88 Glucose 113 H Calcium 9.1 Time Spent with Patient Time Spent with Patient: 25-34 minutes Time was spent: preparing to see the patient(eg.review tests), obtaining and/or reviewing separately otained hiistory, ordering medications,tests, procedures, indepentently interpreting results and counseling the patient
[2022-09-03] MEDS: cefTRIAXone 1 GM/50 ML BAG IVPB (21:16)
[2022-09-03] MEDS: traMADol 50 MG TAB 100 MG PO (21:29)
[2022-09-03] MEDS: Simvastatin 20 MG TAB PO (21:31)
[2022-09-03] MEDS: QUEtiapine 25 MG TAB 12.5 MG PO (21:32)
[2022-09-03] MEDS: Nystatin POWDER 60 GM JAR TP (21:39)
[2022-09-04] VITALS (7 sets, daily range): BP systolic 105–138; BP diastolic 59–72; PULSE 80–86; RESP 16–20; TEMP 36.6–37.2; O2SAT 90–96
[2022-09-04] MEDS: Albuterol HFA 8 GM 60 PUFF INH IH ×5 (04:25→19:55)
[2022-09-04] MEDS: Heparin 5,000 UNITS/ML VIAL 5000 UNITS SC ×3 (05:21→23:44)
[2022-09-04] MEDS: DULoxetine 30 MG CAP 60 MG PO ×2 (08:20→21:08)
[2022-09-04] MEDS: Metoprolol CR 25 MG TABCR PO (08:20)
[2022-09-04] MEDS: Omeprazole 20 MG CAPCR 40 MG PO (08:20)
[2022-09-04] MEDS: Magnesium Oxide 400 MG TAB PO ×2 (08:20→21:09)
[2022-09-04] MEDS: Pregabalin 25 MG CAP 75 MG PO ×3 (08:20→21:08)
[2022-09-04] MEDS: Aspirin 81 MG CHEW PO (08:20)
[2022-09-04] MEDS: Insulin Glargine 300 UNITS/3 ML PEN 25 UNITS SC ×2 (08:21→21:14)
[2022-09-04] MEDS: Nystatin CREAM 15 GM TUBE TP ×3 (08:22→21:10)
[2022-09-04] MEDS: Nystatin POWDER 60 GM JAR TP ×2 (08:23→21:10)
[2022-09-04] MEDS: Fluconazole 100 MG TAB 200 MG PO (09:18)
--- NOTE | 2022-09-04 09:38 | PT.INTREAT ---
PT Notes Visit Reasons: Urinary tract infection Inpatient Physical Therapy Treatment Note [facility] Date: 09/04/22 SUBJECTIVE:Raven states that she is not getting out of bed today. Refused use of lift, as well as transfer training. She was agreeable to bed exercises. OBJECTIVE: [] PAIN: c/o bilateral foot pain. THEREX: performed bed level exercises for LE strengthening. AP, SAQ, SLR and hip abd/add. Refused bridging and glut squeezes due to sore on bottom. ASSESSMENT: tolerated ex fair. She is not motivated so it takes a great deal of encouragement to get her to do anything for me. PLAN: will continue to work on progressing her strength and functional mobility. TREATMENT CODE/TIME: 20 min [id number]
--- NOTE | 2022-09-04 11:47 | W.PM.PROGNOT ---
Date of Service Date of service: 09/04/22 Time of Service: 11:47 Assessment and Plan Assessment and plan (1) Acute UTI: Status: Acute Assessment and plan: growing e coli, pansensitive We will continue ceftriaxone Patient has an indwelling urinary catheter for urinary retention, now draining after repositioning and irrigation. 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 She is c/o burning to her feet and we will increase her lyrica dose to 75 mg TID and reassessed in 3 to 5 days Due to her Allergy and CKD, NSAIDs are not an option at this time. continue Acetaminophen 650 mg every 8 hours schedule for 48 hours and evaluate the effectiveness (4) CHF (congestive heart failure): Status: Chronic Assessment and plan: Last echo 03/2022 with an LVEF of 55.9%.Patient not currently exacerbated. - continue home meds - monitor I/O's and daily weight (5) Chronic kidney disease: Status: Chronic Assessment and plan: creatinine climbing, IVF started. Her potassium was 7.3 initially and 5.0 when reverified. Her potassium has been stable - follow BMP - continue [place] [facility] [place] did [place] f/u after she was discharged in 03/2023.Her last visit was in 12/2021. She also mentioned that she was not aware that she had to take her Lokelma at home. ? hemolyzed sample (6) Diabetes mellitus type 2: Status: Chronic Assessment and plan: her A1C in march was 6.9, consider recheck outpatient but blood sugars controlled inpatient on diet and current regimen. -On lantus, and SSI coverage - AC&HS fingersticks (7) Morbid obesity: Status: Chronic Assessment and plan: Concern for OHS given prior blood gases. Will monitor for signs of worsening hypercapnia - should have outpatient sleep study (8) Hyperlipidemia: Status: Chronic Assessment and plan: continue home meds (9) Depression: Status: Chronic Assessment and plan: Continue home meds (10) COPD (chronic obstructive pulmonary disease): Status: Chronic Assessment and plan: Former smoking , no formal testing available - albuterol prn (11) Fall: Status: Acute Assessment and plan: Patient reporting staying down for hours after falls until her SO comes home. PT assessment Will consult with case management for devices for safety such as life-alert (12) On deep vein thrombosis (DVT) prophylaxis: Status: Acute Assessment and plan: Patient is on Heaprin 5000 units SQ Q 8 hours (13) Discharge planning issues: Status: Acute Assessment and plan: Patient will return home when medically stable Care management is investigating on devices to improve safety at home Discussed with Dr. Iqbal Subjective Subjective Patient reports: no new complaints, feels better and afebrile; denies shortness of breath Exam Const General: disheveled, frail appearing and ill appearing chronically Nutritional Appearance: obese Orientation: alert, awake and confused HENMO Head: normal to inspection, normocephalic and atraumatic Resp Effort & Inspection: normal respiratory effort Auscultation: diminished lung sounds (throughout) Cardio Rate: regular rate Rhythm: regular rhythm GI Inspection: normal to inspection and obesity Palpation: soft Objective Last Vital Signs Temp 36.9 C 09/04/22 11:15 Pulse 84 09/04/22 11:15 Resp 20 09/04/22 11:15 BP 113/59 L 09/04/22 11:15 Pulse Ox 90 L 09/04/22 11:15 Time Spent with Patient Time Spent with Patient: 25-34 minutes Time was spent: preparing to see the patient(eg.review tests), obtaining and/or reviewing separately otained hiistory, ordering medications,tests, procedures and counseling the patient
[2022-09-04] MEDS: Lidocaine 5% Patch 2 PATCH TP (12:51)
[2022-09-04] MEDS: Insulin Aspart 300 UNITS/3 ML PEN SC (12:51)
[2022-09-04] MEDS: QUEtiapine 25 MG TAB 12.5 MG PO (21:08)
[2022-09-04] MEDS: Simvastatin 20 MG TAB PO (21:09)
[2022-09-04] MEDS: Ferrous Sulfate 325 MG TAB PO (23:44)
[2022-09-04] MEDS: traMADol 50 MG TAB 100 MG PO (23:44)
[2022-09-05] MEDS: Lidocaine 1% Pres-Free 30 ML VIAL 3.6 ML IJ (01:41)
[2022-09-05] MEDS: cefTRIAXone 1 GM VIAL IM (01:41)
[2022-09-05 03:15] VITALS: BP 155/80; PULSE 85; RESP 17; TEMP 36.9; O2SAT 95
[2022-09-05] MEDS: Albuterol HFA 8 GM 60 PUFF INH IH ×2 (04:07→07:31)
[2022-09-05] MEDS: Heparin 5,000 UNITS/ML VIAL 5000 UNITS SC ×3 (06:42→22:17)
[2022-09-05 07:19] VITALS: BP 124/69; PULSE 88; RESP 18; TEMP 36.7; O2SAT 91
[2022-09-05] MEDS: Metoprolol CR 25 MG TABCR PO (08:36)
[2022-09-05] MEDS: Magnesium Oxide 400 MG TAB PO ×2 (08:36→21:08)
[2022-09-05] MEDS: Omeprazole 20 MG CAPCR 40 MG PO (08:36)
[2022-09-05] MEDS: DULoxetine 30 MG CAP 60 MG PO ×2 (08:36→21:09)
[2022-09-05] MEDS: Aspirin 81 MG CHEW PO (08:36)
[2022-09-05] MEDS: Fluconazole 100 MG TAB 200 MG PO (08:37)
[2022-09-05] MEDS: Insulin Glargine 300 UNITS/3 ML PEN 25 UNITS SC ×2 (08:37→21:10)
[2022-09-05] MEDS: Nystatin POWDER 60 GM JAR TP ×2 (08:38→21:12)
[2022-09-05] MEDS: Nystatin CREAM 15 GM TUBE TP ×3 (08:38→21:12)
--- NOTE | 2022-09-05 10:21 | PT.INTREAT ---
Date of service: 09/05/22 Time of Service: 09:49 PT Notes Visit Reasons: Urinary tract infection Inpatient Physical Therapy Treatment Note [facility] Date: 09/05/2022 PRECAUTIONS: Fall, Activity as tolerated SUBJECTIVE: Raven is pleasant and agreeable to getting up to the chair. She reports that she has not wanted to get out of bed all weekend and that she really doesn't want to today. Today she reports that she does not use a commode at home, but that she uses pads in her chair, which get changed out throughout the day. She also reports that she does not get out of her recliner unless she wants to, during which she walks about 10'. OBJECTIVE: PAIN: Patient c/o pain in dorsal aspect of B feet with weight bearing. BED MOBILITY/TRANSFERS Supine-sit: Mod A with HOB flat Sit-supine: Max A x2 Sit-stand: Mod A x2 Stand-sit: Mod A x2 Bed-chair: Min A x2 Chair-bed: Mod A x2 GAIT Assistive Device: FWW Weight bearing: Full Assist: Min A x2 in a.m. Mod A x2 in p.m. Distance: 4 steps in a.m.; 4 steps in p.m. Deviation: Moderate SOB, increased fatigue, wide DIPESH, short step height and length THEREX: Patient was instructed in a LE strengthening program, completed in a seated position in a.m. and in a supine position in p.m., to include: ankle pumps, quad sets, glute sets, LAQ, hip flexion, heel slides and hip abduction. ASSESSMENT: Patient tolerated session with c/o increased fatigue and with SOB with all activity. She was able to tolerate several steps to complete transfer from bed<>chair, although requires Min A x2 - Mod A x2. PLAN: Continue with global strengthening and general conditioning for improved mobility, as well as continued transfer training. TREATMENT CODE/TIME: Session 1: 31 minutes; [id number], [id number] (09:49) Session 2: 20 minutes; [id number] (13:52)
[2022-09-05] MEDS: Lidocaine 5% Patch 2 PATCH TP (10:39)
[2022-09-05] MEDS: Ferrous Sulfate 325 MG TAB PO ×2 (10:39→21:08)
[2022-09-05 11:13] VITALS: BP 121/61; PULSE 74; RESP 18; TEMP 36.7; O2SAT 92
[2022-09-05] MEDS: Insulin Aspart 300 UNITS/3 ML PEN SC ×2 (12:08→16:59)
--- NOTE | 2022-09-05 13:55 | PHA.REVIEW2 ---
Pharmacy Admission Review - Admission Clinical Review (Last Reviewed 08/31/22 @ 23:15 by Rayshawn De La O MD) Yeast vaginitis (Acute) On deep vein thrombosis (DVT) prophylaxis (Acute) Discharge planning issues (Acute) Pain (Acute) Acute UTI (Acute) Fall (Acute) epinephrine Allergy (Severe, Unverified 09/01/22 00:16) chest pain/heart attack Penicillins Allergy (Intermediate, Unverified 09/01/22 00:16) rsh fever banana [Banana] Allergy (Unverified 09/01/22 00:16) NSAIDS (Non-Steroidal Anti-Inflamma Allergy (Unverified 09/01/22 00:16) unkown Sulfa (Sulfonamide Antibiotics) Allergy (Unverified 09/01/22 00:16) rash,fever Tetracyclines Allergy (Unverified 09/01/22 00:16) rash fever sodium polystyrene sulfonate [From Kayexalate] Adverse Reaction (Severe, Unverified 09/01/22 00:16) tachy/dyspnea/rash Niacin Preparations Adverse Reaction (Intermediate, Unverified 09/01/22 00:16) flushing Resuscitation Status Full Code Height 5 ft 2 in Weight 111.6 kg - Renal Dosing Renal Dosing: BUN 43 mg/dL (7-18) H 09/03/22 06:35 Creatinine 1.9 mg/dL (0.55-1.02) H 09/03/22 06:35 Medications needing adjustments: Reviewed (crcl = 31, current meds ok. caution w/ increased lyrica dose or tramadol dose/frequency increase (currently on 100 mg QHS)) List of meds needing interventions: fluconazole already adjusted (50% reduction) - Anticoagulation Anticoagulation: Hgb 10.6 g/dL (11.2-15.7) L 09/03/22 06:35 Hct 35.0 % (36.0-46.0) L 09/03/22 06:35 Plt Count 148 10^3/uL (130-400) 09/03/22 06:35 INR 1.0 (0.9-1.1) 08/31/22 23:49 Creatinine 1.9 mg/dL (0.55-1.02) H 09/03/22 06:35 DVT Prophylaxis: Reviewed Medications: Heparin (heparin 5000 units q8h) Therapeutic Anticoagulation: N/A - Opiate Usage Evaluate Pain Scale/Pains Meds: Reviewed (tramadol 100 mg qhs) Scheduled Bowel Reg ordered if on Opiates?: No (pt has ostomy) - Relevant Labs Sodium 139 mmol/L (136-145) 09/03/22 06:35 Potassium 5.0 mmol/L (3.5-5.1) 09/03/22 06:35 Chloride 104 mmol/L (98-107) 09/03/22 06:35 Magnesium 2.0 mg/dL (1.8-2.4) 09/02/22 06:14 Electrolytes, C-Reactive P, ESR: Reviewed (Lokelma x 1 given for K+ of 7.3. Labs have not been done yesterday or today) - DM Control DM Control: Glucose 113 mg/dL (74-106) H 09/03/22 06:35 Finger Stick Blood Glucose 186 Finger Stick Blood Glucose 186 Finger Stick Blood Glucose 186 Finger Stick Blood Glucose 136 Finger Stick Blood Glucose 136 Finger Stick Blood Glucose 136 Finger Stick Blood Glucose 136 DM Control: Reviewed (last a1c = 6.9% 03/17/22) Insulin Dosing, Diabetic Medication: insulin aspart sliding scale before meals + insulin glargine 25 units BID. Takes glipizide 10 mg BID at home (not ordered) + lantus - Cardiac Review Cardiac Review: Troponin I < 50 ng/L (<or=60) 09/01/22 02:00 NT-Pro-B Natriuret Pep 171 pg/mL (<300) 08/31/22 23:49 BP, HR, EF%: Reviewed (on metoprolol succ (Toprol XL) 25 mg daily, lisinopril dc'd (CKD/hyperkalemia)) - Qtc Review If Elevated, List meds needing intervention: QTc = 427 on 08/31/22 - IV to PO Switch IV Medications: N/A (lost IV access today, only IV med (ceftriaxone) dc'd) - Home Meds Home Med List reviewed: Reviewed Relevent Home Meds Not ordered & why?: glipizide not ordered. controlled on sliding scale insulin + lantus BID. Lisinopril stopped (kidney disease, hyperkalemia) - Current meds Current Medication Order Review: Reviewed - Comments Comments/Follow Ups: watch kidney function (review any new meds/dose increases for renal dosing), review labs, Antibiotic Activity - Antibiotic Information Antibiotic Review Info: received 5 doses of ceftriaxone for UTI, now dc'd (lost IV access). FLuconazole 200 mg daily for yeast vaginitis (has received 4 doses) + nystatin
--- NOTE | 2022-09-05 14:28 | PDOC.CMPRO ---
- If Service Date Differs Date of service: 09/05/22 Time of Service: 14:28 Care Management Progress Note S/O: Raven was sitting up in her chair when CM met with her. She stated that she is feeling much better today. CM discussed options for discharge, as per report, she will likely be ready for discharge soon. She stated that she is not interested in going to a facility at this time. Her grand daughter was in the room, and reported that she feels it would be best for her grand mother to go to rehab, but Raven is not willing to have CM send referrals at this time. Per provider, she is not ready for discharge today, will reassess tomorrow. CM will continue to follow. A: Raven is a 72 year old female admitted to [facility] on 09/02/22 for UTI. P: Raven will return home when ready per MD. CM has offered to send referrals to SNF, but she is not agreeable to this plan at this time. Raven will transport via [facility] w/[facility] van when ready. She will follow up with her PCP and discharge plan of care. CM will continue to follow.
[2022-09-05 15:23] VITALS: BP 146/82; PULSE 80; RESP 18; TEMP 37; O2SAT 93
--- NOTE | 2022-09-05 15:23 | W.PM.PROGNOT ---
Date of Service Date of service: 09/05/22 Time of Service: 15: Assessment and Plan Assessment and plan (1) Acute UTI: Status: Acute Assessment and plan: growing e coli, pansensitive We will continue ceftriaxone Patient has an indwelling urinary catheter for urinary retention, now draining after repositioning and irrigation. 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 She is c/o burning to her feet and we will increase her lyrica dose to 75 mg TID and reassessed in 3 to 5 days Due to her Allergy and CKD, NSAIDs are not an option at this time. continue Acetaminophen 650 mg every 8 hours schedule for 48 hours and evaluate the effectiveness (4) CHF (congestive heart failure): Status: Chronic Assessment and plan: Last echo 03/2022 with an LVEF of 55.9%.Patient not currently exacerbated. - continue home meds - monitor I/O's and daily weight (5) Chronic kidney disease: Status: Chronic Assessment and plan: creatinine climbing, IVF started. Her potassium was 7.3 initially and 5.0 when reverified. Her potassium has been stable - follow BMP - continue I/O's office of [facility]. Luo at [facility] [place] noted pt did not f/u after she was discharged in 03/2023.Her last visit was in 12/2021. She also mentioned that she was not aware that she had to take her Lokelma at home. ? hemolyzed sample (6) Diabetes mellitus type 2: Status: Chronic Assessment and plan: her A1C in march was 6.9, consider recheck outpatient but blood sugars controlled inpatient on diet and current regimen. -On lantus, and SSI coverage - AC&HS fingersticks (7) Morbid obesity: Status: Chronic Assessment and plan: Concern for OHS given prior blood gases. Will monitor for signs of worsening hypercapnia - should have outpatient sleep study (8) Hyperlipidemia: Status: Chronic Assessment and plan: continue home meds (9) Depression: Status: Chronic Assessment and plan: Continue home meds (10) COPD (chronic obstructive pulmonary disease): Status: Chronic Assessment and plan: Former smoking , no formal testing available - albuterol prn (11) Fall: Status: Acute Assessment and plan: Patient reporting staying down for hours after falls until her SO comes home. PT assessment Will consult with case management for devices for safety such as life-alert (12) On deep vein thrombosis (DVT) prophylaxis: Status: Acute Assessment and plan: Patient is on Heaprin 5000 units SQ Q 8 hours (13) Discharge planning issues: Status: Acute Assessment and plan: Patient will return home when medically stable, she adamantly declines inpatient rehabilitation. Discussed with Dr. Iqbal Subjective Subjective Patient reports: no new complaints, feels better, tolerating liquids well, tolerating a regular diet and afebrile; denies shortness of breath Exam Const General: disheveled, frail appearing and ill appearing chronically Nutritional Appearance: obese Orientation: alert, awake and confused HENMT Head: normal to inspection, normocephalic and atraumatic Resp Effort & Inspection: normal respiratory effort Auscultation: diminished lung sounds (throughout) Cardio Rate: regular rate Rhythm: regular rhythm GI Inspection: normal to inspection and obesity Palpation: soft Objective Last Vital Signs Temp 36.7 C 09/05/22 11:13 Pulse 74 09/05/22 11:13 Resp 18 09/05/22 11:13 BP 121/61 09/05/22 11:13 Pulse Ox 92 09/05/22 11:13 Time Spent with Patient Time Spent with Patient: 25-34 minutes Time was spent: preparing to see the patient(eg.review tests), obtaining and/or reviewing separately otained hiistory, ordering medications,tests, procedures, indepentently interpreting results and counseling the patient
--- NOTE | 2022-09-05 18:00 | PT.INDS ---
Date of service: 09/05/22 PT Notes Visit Reasons: Urinary tract infection Physical Therapy Inpatient Discharge Summary Date: 09/01/2022 Dates of Service: 09/01/2022 through 09/05/2022 This is a clinical summary of care provided for the duration of dates listed above. No charge was made in the completion of this documentation. Referring Doctor: Ashtyn Kc MD PT Orders: PT CONSULT: Eval/Treat Precautions: Fall. Standard. Activity as tolerated. Patient Profile/Admitting Diagnosis: Raven is a 72-year-old female who presented to the ED on 08/31/2022 due to 1 week of progressive weakness, 4 days of cough, and 2 days of shortness of breath with repeated falls earlier this week.? Patient is admitted to [facility] for management of acute urinary tract infection, CHF, CKD, DM type II, hyperlipidemia, depression, and COPD. PMHX: All Active Problems? COPD (chronic obstructive pulmonary disease) (Chronic) Acute UTI (Acute) COPD exacerbation (Acute) CHF (congestive heart failure) (Chronic) Fall (Acute) Anemia (Chronic) Mass of left ovary (Acute) Chronic kidney disease (Chronic) Essential hypertension (Chronic) Diabetes mellitus type 2 (Chronic) On MetforminBack pain (Acute) Morbid obesity (Chronic) Hyperlipidemia (Chronic) Depression (Chronic) Vitamin D deficiency (Chronic) History of colostomy (Chronic) Medical History? Anemia (05/03/13) Hemoglobin 8.2.Anemia Depression Diabetes mellitus Diverticulitis Recurrent.? S/p high risk hemicolectomy in the setting of sepsis and hypotension 03/22/2013. Complication of a stomal leak resulting in an abdominal abscess.? [place] [facility] [place] emerg[place] with sepsis syndrome and had an abdominal abscess? drained. ? Completed rehab at [facility] with discharge most recently on after extensive dressing care of the abdominal wound with a wound VAC. 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 Leukocytosis.? Intermittently febrile.Fall Gastroesophageal reflux disease GERD (gastroesophageal reflux disease) Hepatitis C Recent negative viral count.History of breast cancer History of hepatitis C History of incisional hernia History of renal failure Migraine Morbid obesity Osteopenia Palliative care patient Vitamin D deficiency Surgical History? Colectomy H/O mastectomy Hernia Repair, Incisional x2 S/P cholecystectomy Social History/Home Situation: Lives with significant other in a mobile home with a ramp to enter and alternate 3 steps to enter.? Bed-bound since March 2022. Equipment Owned/DME: Front-wheeled walker, wheelchair Subjective: NT. See most recent SENIOR CATERING SALES MANAGER notes. Objective: General Observation:?NT. See most recent SENIOR CATERING SALES MANAGER notes. Mental Status: NT. See most recent SENIOR CATERING SALES MANAGER notes. Pain: NT. See most recent SENIOR CATERING SALES MANAGER notes. Vital Signs: NT. See most recent SENIOR CATERING SALES MANAGER notes. ROM: Right Upper Extremity: ? Shoulder Flexion lacks 50% of AROM. Shoulder abduction lacks 50% of AROM. Elbow flexion WFL. Wrist flexion WFL. Functional opening and closing of hand WFL. Left Upper Extremity:? Shoulder Flexion lacks 50% of AROM. Shoulder abduction lacks 50% of AROM. Elbow flexion WFL. Wrist flexion WFL. Functional opening and closing of hand WFL. Right Lower Extremity: Hip flexion unable beyond 90 while seated at edge of bed. Hip abduction 10 degrees. Knee flexion 0 to 90 degrees. Ankle dorsiflexion to neutral only. Ankle plantarflexion WFL. Left Lower Extremity: Hip flexion unable beyond 90 while seated at edge of bed. Hip abduction 10 degrees. Knee flexion 0 to 90 degrees. Ankle dorsiflexion to neutral only. Ankle plantarflexion WFL. Strength: Right Upper Extremity: Shoulder flexors 3-/5. Shoulder abductors 3-/5. Elbow flexors 3-/5. Elbow extensors 3-/5. Hand [place] strong. Left Upper Extremity: Shoulder flexors 3-/5. Shoulder abductors 3-/5. Elbow flexors 3-/5. Elbow extensors 3-/5. Hand [place] strong. Right Lower Extremity: Hip flexors 2-/5. Hip abductors 2-/5. Knee flexors 2-/5. Knee extensor 2-/5. Ankle dorsiflexors 2-/5. Ankle plantarflexors 2-/5. Left Lower Extremity: Hip flexors 2-/5. Hip abductors 2-/5. Knee flexors 2-/5. Knee extensor 2-/5. Ankle dorsiflexors 2-/5. Ankle plantarflexors 2-/5. BED MOBILITY/TRANSFERS? Supine-sit: Mod A with HOB flat Sit-supine: Max A x2 Sit-stand: Mod A x2? Stand-sit: Mod A x2 ? Bed-chair: Min A x2 Chair-bed: Mod A x2 ? GAIT? Assistive Device: FWW? Weight bearing: Full Assist: Min A x2 in a.m. Mod A x2 in p.m. ? Distance:? 4 steps in a.m.; 4 steps in p.m. ? Deviation: Moderate SOB, increased fatigue, wide DIPESH, short step height and length Balance: Static Sitting: Fair Dynamic Sitting: Poor Static Standing: Fair Dynamic Standing: Poor Special Tests: Mobility Limitations Standardized Measure [facility] AM-PAC 6 clicks Basic Mobility Inpatient Short Form: Raw Score:6 CMS Score: 100% deficit? ? ? ASSESSMENT: Patient unable and fearful to ambulate, limited bed mobility skills, increased fall risk, and ADL dependence resulting from acute urinary tract infection, CHF, CKD, DM type II, hyperlipidemia, depression, and COPD.? Significant other has limited ability to help due to own chronic mobility issues.? Patient presents with clinical signs and symptoms consistent with current/admitting diagnoses that have resulted to mobility limitations, gait instability, generalized weakness, and overall ADL decline as demonstrated by the following impairment level findings: 1.? Decreased strength to B UE/LE major muscle groups 2.? Impaired sitting/standing balance 3.? Impaired activity tolerance 4.? Limitation of joint range of motion in back and B UE/LE 5.? Shortness of breath 6.? Low back pain Impairments are contributing to the following functional limitations: 1.? Decline in bed mobility skills 2.? Decline in transfer skills 3.? Unable and fearful to ambulation without assistive device and physical assistance 4.? Increased completion time for mobility ADL performance 5.? Increased risk for falls 6.? Difficulty with managing steps alone safely Goals: Goals X1 week 1. Supine-Sit minimal assist NOT MET 2. Sit-Supine minimal assist NOT MET 3. Sit-Stand moderate assist NOT MET 4. Stand-Sit moderate assist with bariatric FWW NOT MET 5. Bed-Chair moderate assist with bariatric FWW NOT MET 6. Chair-Bed moderate assist with bariatric FWW NOT MET 7. Fair static and dynamic standing balance/tolerance NOT MET DISCHARGE RECOMMENDATIONS: [] ? Home with no services [] [] ? Home with services [specify] [] ? Home with outpatient PT [] [X] ? SNF for continued rehabilitation.? Patient will benefit from alf facility placement for continued skilled physical therapy services in order to progress mobility level, strength, and balance in preparation for a safe discharge to home. [] ? [facility] [] [] ? SNF versus LTC based on ability to participate and progress [] TREATMENT CODE/TIME: NC Thank you for the opportunity to participate in the care of this patient. Selene Collado PT, DPT, CLT [facility] [place], [place]
[2022-09-05 20:53] VITALS: BP 148/67; PULSE 81; RESP 16; TEMP 37.1; O2SAT 98
[2022-09-05] MEDS: QUEtiapine 25 MG TAB 12.5 MG PO (21:09)
[2022-09-05] MEDS: Simvastatin 20 MG TAB PO (21:09)
[2022-09-05] MEDS: traMADol 50 MG TAB 100 MG PO (22:18)
[2022-09-05 22:30] VITALS: BP 158/75; PULSE 83; RESP 18; TEMP 37; O2SAT 93
[2022-09-06 03:25] VITALS: BP 158/75; PULSE 64; RESP 18; TEMP 36.7; O2SAT 93
[2022-09-06] MEDS: Heparin 5,000 UNITS/ML VIAL 5000 UNITS SC ×2 (05:58→13:57)
[2022-09-06] MEDS: Omeprazole 20 MG CAPCR 40 MG PO (07:26)
[2022-09-06 07:35] VITALS: BP 163/86; PULSE 83; RESP 18; TEMP 36.7; O2SAT 92
[2022-09-06] MEDS: DULoxetine 30 MG CAP 60 MG PO (08:46)
[2022-09-06] MEDS: Fluconazole 100 MG TAB 200 MG PO (08:48)
[2022-09-06] MEDS: Aspirin 81 MG CHEW PO (08:48)
[2022-09-06] MEDS: Metoprolol CR 25 MG TABCR PO (08:48)
[2022-09-06] MEDS: Magnesium Oxide 400 MG TAB PO (08:49)
[2022-09-06] MEDS: Nystatin CREAM 15 GM TUBE TP ×2 (08:49→12:22)
[2022-09-06] MEDS: Nystatin POWDER 60 GM JAR TP (08:51)
[2022-09-06] MEDS: Insulin Glargine 300 UNITS/3 ML PEN 25 UNITS SC (09:01)
[2022-09-06] MEDS: Lidocaine 5% Patch 2 PATCH TP (10:12)
[2022-09-06] MEDS: Ferrous Sulfate 325 MG TAB PO (10:12)
--- NOTE | 2022-09-06 10:26 | DSE_ITS ---
Date of service: 09/06/22 Time of Service: 10:26 DS: Diagnosis Discharge Diagnosis (1) Acute UTI: Status: Acute (2) Yeast vaginitis: Status: Acute (3) Pain: Status: Acute (4) CHF (congestive heart failure): Status: Chronic (5) Chronic kidney disease: Status: Chronic (6) Diabetes mellitus type 2: Status: Chronic (7) Morbid obesity: Status: Chronic (8) Hyperlipidemia: Status: Chronic (9) Depression: Status: Chronic (10) COPD (chronic obstructive pulmonary disease): Status: Chronic (11) Fall: Status: Acute Discharge Plan Disposition Patient Disposition: Home W/Home Health Services Condition: Stable Discharge Details Reason For Visit: UTI Admit Date/Time: 09/02/22 11:09 Admit Provider: Ashtyn Zaman Attending Provider: Ashtyn Zaman Primary Care Provider: Mayr Ann Luo Hospital Course Hospital Course: This is a very comorbid (DM, COPD, CHF, obesity, likely OHS?) 72 yo with several hospital admission who presents to the ED with several days of weakness, shortness of breath and cough. Her weakness has resulted in falls earlier in the week that required EMS/fire assistance. She has not noted fevers but does endorses worsening smell to her urine. Her labs found a leukocytosis with a positive UA for infection. Her creatinine is slightly elevated from baseline. Her CXR did not find anything acute. Her bnp was low. She was given ceftriaxone and was volume resuscitated in the ED. He last echo? is from 03/2022 which showed a normal appearing LV, but the RV could not be assessed. She has not had PFT's. She has previously seen palliative care, she remains a full code. she was admitted to med/surg. her culture grew oviedo sensitive e coli. She was treated with 5 days of ceftriaxone. And has remained at her baseline hemodynamically she is stable her blood cultures have remained negative. Physical therapy has been working with her and recommendations which they have previously been in the past as well were for inpatient rehabilitation. She adamantly declines being discharged to a rehab facility. She chooses to be discharged to home. She will be discharged to home with home health services including nursing physical therapy occupational therapy and medical care manager. Palliative care is also scheduled to see her outpatient. She has no new prescriptions at time of discharge other than nystatin powder. She was advised to resume the rest of her medications as previously prescribed. Her discharge is discussed with Dr. Iqbal Home Meds and New Rx's Prescriptions: New nystatin 100,000 unit/gram Powder 1 applic topical BID Qty: 0 0RF Continued simvastatin [Zocor] 40 MG tablet 40 mg PO HS calcium carbonate-vitamin D3 [Calcium 600 + D(3)] 1 EACH tablet 1 ea PO DAILY quetiapine 25 mg Tablet 12.5 mg PO QPM Qty: 15 0RF magnesium oxide 400 mg magnesium Tablet 400 mg PO BID Qty: 60 0RF lisinopril 10 mg tablet 10 mg PO DAILY tramadol 50 mg Tablet 100 mg PO QHS aspirin 81 mg Tablet,Chewable 81 mg PO DAILY insulin glargine [Lantus Solostar U-100 Insulin] 100 unit/mL (3 mL) insulin pen 25 unit SUBCUT BID Qty: 0 0RF Label Comments: INJECT 56 UNITS SUBCUTANEOUSLY TWO TIMES A DAY- Once in the am and once in the pm cholecalciferol (vitamin D3) 50 mcg (2,000 unit) tablet 4,000 unit PO DAILY Label Comments: TAKE TWO TABLETS BY MOUTH EVERY DAY duloxetine 60 mg capsule,delayed release(DR/EC) 60 mg PO BID Label Comments: TAKE ONE CAPSULE BY MOUTH TWICE A DAY glipizide 5 mg tablet 10 mg PO BID Label Comments: TAKE TWO TABLETS BY MOUTH TWICE A DAY omeprazole 40 mg capsule,delayed release(DR/EC) 40 mg PO DAILY Label Comments: TAKE ONE CAPSULE BY MOUTH EVERY DAY pregabalin 50 mg capsule 50 mg PO TID Label Comments: TAKE ONE CAPSULE BY MOUTH THREE TIMES A DAY metoprolol succinate 25 mg Tablet Extended Release 24 Hr 25 mg PO DAILY Qty: 30 0RF Discharge Instructions Instructions: Urinary Tract Infection in Women (DC), Yeast Infection (GEN) Additional Instructions: your urinary tract infection was treated and there are no further antibiotics needed at discharge. continue to use nystatin powder to groin area twice daily if needed for rash, itching Stand Alone Forms: Nursing Discharge Form Referrals: Mary Ann Luo [Primary Care Provider] - (Office will call you with appointment, Later today or tomorrow. If you do not hear from them please call them. ) Yelena Barreto NP [NURSE PRACTITIONER] - Activity:: Activity as Tolerated Equipment/Supplies:: No Equipment Needed Diet:: As Tolerated Discharge Orders Discharge Orders: Discharge Order (Routine); Ordered 09/06/22 Ordered By: Leonie Rodriguez Discharge Data Discharge Date/Time-TO BE ENTERED AT DEPARTURE: 09/06/22 14:22 DS: Summary Time Spent with Patient providing and/or coordinating discharge services: Greater than 30 minutes Status at Discharge Functional status at discharge: uses cane/walker Overall status at discharge: patient is back to baseline Mental Status: other (Cognitive impairment at baseline) Speech and Movement: speech and movement normal Mood: other (Cognitive impairment at baseline) Affect: normal affect Exam Const General: disheveled, frail appearing and ill appearing chronically Nutritional Appearance: obese Orientation: alert, awake and confused HENMT Head: normal to inspection, normocephalic and atraumatic Resp Effort & Inspection: normal respiratory effort Auscultation: diminished lung sounds (throughout) Cardio Rate: regular rate Rhythm: regular rhythm GI Inspection: normal to inspection and obesity Palpation: soft Psych Mental Status: other (Cognitive impairment at baseline) Speech and Movement: speech and movement normal Mood: other (Cognitive impairment at baseline) Affect: normal affect DS: Data Vitals/I&O Vitals and I&O: Vital Signs Temperature 36.7 C 09/06/22 07:35 Temperature Source Tympanic 09/06/22 07:35 Pulse 83 09/06/22 07:35 Pulse Rhythm Regular 09/06/22 10:00 Respiratory Rate 18 09/06/22 07:35 Respiratory Effort Non-Labored 09/06/22 10:00 Respiratory Depth Normal 09/06/22 10:00 Respiratory Pattern Normal 09/06/22 10:00 Blood Pressure 163/86 H 09/06/22 07:35 Blood Pressure Position Supine 08/31/22 22:58 Pulse Oximetry 92 09/06/22 07:35 Oxygen Delivery Method Room Air 09/06/22 07:35 Oxygen Flow Rate 0 09/06/22 07:35 Pain Level 5 09/06/22 07:35 Comment 09/05/22 11:13 Intake & Output 09/05/22 09/05/22 09/06/22 11:59 23:59 11:59 Intake Total 590 / 590 270 / 270 Output Total 1375 / 1900 525 / 1900 1625 / 1625 Balance -1375 / -1310 65 / -1310 -1355 / -1355 Weight 111.6 kg Intake: Oral 590 / 590 270 / 270 Output: Urine 1025 / 1550 525 / 1550 1525 / 1525 Stool 350 / 350 100 / 100 Other: Urine Color Yellow Pale Yellow Urine Appearance Clear Clear Clear Urine Odor None Voiding Methods Indwelling Catheter [facility] All Active Problems Yeast vaginitis (Acute) On deep vein thrombosis (DVT) prophylaxis (Acute) Discharge planning issues (Acute) Pain (Acute) COPD (chronic obstructive pulmonary disease) (Chronic) Acute UTI (Acute) COPD exacerbation (Acute) CHF (congestive heart failure) (Chronic) Fall (Acute) Anemia (Chronic) Mass of left ovary (Acute) Chronic kidney disease (Chronic) Essential hypertension (Chronic) Diabetes mellitus type 2 (Chronic) On Metformin Back pain (Acute) Morbid obesity (Chronic) Hyperlipidemia (Chronic) Depression (Chronic) Vitamin D deficiency (Chronic) History of colostomy (Chronic) Medical History Anemia (05/03/13) Hemoglobin 8.2. Anemia Depression Diabetes mellitus Diverticulitis Recurrent. S/p high risk hemicolectomy in the setting of sepsis and hypotension 03/22/2013. Complication of a stomal leak resulting in an abdominal abscess. [place] [facility] [place] with sepsis syndrome and had an abdominal abscess drained. Completed rehab at [facility] with discharge most recently on after extensive dressing care of the abdominal wound with a wound VAC. 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 Leukocytosis. Intermittently febrile. Fall Gastroesophageal reflux disease GERD (gastroesophageal reflux disease) Hepatitis C Recent negative viral count. History of breast cancer History of hepatitis C History of incisional hernia History of renal failure Migraine Morbid obesity Osteopenia Palliative care patient Vitamin D deficiency Surgical History Colectomy H/O mastectomy Hernia Repair, Incisional x2 S/P cholecystectomy Family History Mother No problems noted. Father No problems noted. Social History Smoking/Tobacco Use Status: Former Tobacco Use Smoking risk assessment performed?: Yes Alcohol Intake: never Drug use: Never Substance use type: does not use Do you feel safe at home: Yes Do you feel safe in your relationship?: Yes Time Spent with Patient Time Spent with Patient: 45-69 minutes Time was spent: preparing to see the patient(eg.review tests), ordering medications,tests, procedures, referring, communicating with other health animal care technician, indepentently interpreting results, counseling the patient and care coordination
--- NOTE | 2022-09-06 10:40 | PDOC.HHF2F_ITS ---
Home Health Referral Home Health Orders Clinical synopsis of why skilled professionals are needed: increased fatigue and with SOB with all activity.? Medical diagnosis necessitation home health referral: super mobid obesity, ambulatory dysfunction, falls, hospitalization for UTI and yeast infection Registered Nurse: Check all that apply Instruct on new or changed medication(s)/assess compliance: Ordered Assess for exacerbation of medical condition, instruct patient/caregivers on signs and symptoms to report for early detection: Ordered Physical Therapist: Check all that apply Increase strength & endurance for safe mobility at home: Ordered To design/establish home maintenance program: Ordered Fall reduction therapy program for patient with history of frequent falls: Ordered Home safety evaluation and teaching/gait training including stair management (if applicable): Ordered Occupational Therapist: Evaluate and treat for patient unable to perform ADL/IADL/self-care: Ordered Upper extremity strengthening, range and motion: Ordered Postdoctoral Scholar: Assist with community resources: Ordered Assist with [facility] care planning: Ordered Home Bound Status Requires the aid of supportive device (check all that apply): Walker Describe why leaving home would require a considerable and taxing effort: Requires frequent rest periods and Confusion Encounter Date and Reason: I certify that a FTF encounter for this patient was performed on September 06, 2022 and that such encounter was related to the primary reason the patient requires home health services. The encounter was conducted in the following manner: * By me as the certifying physician, TRANSPORTATION INSPECTOR, PA or * By an inpatient physician, TRANSPORTATION INSPECTOR or PA during an inpatient stay who communicated findings to me, Certification And Authentication I certify that I composed the above information based on my clinical judgment relating to this patient's medical condition and, if applicable, clinical findings communicated to me by the NPP or inpatient physician who performed the FTF encounter. Name of Provider that will be monitoring home health services: Mary Ann Luo
[2022-09-06] MEDS: Insulin Aspart 300 UNITS/3 ML PEN SC (12:23)
--- NOTE | 2022-09-06 14:10 | CMDISCH_ITS ---
- If Service Date Differs Date of service: 09/06/22 Time of Service: 14:10 LACE Index Scoring Tool - Questions: Length of Stay (in days): 4 - 6 Acuity (Admit via E.D.?): Yes Comorbidities: Diabetes w/o Complication, Congestive Heart Failure, Chronic Pulmonary Disease, Liver or Renal Disease E.D. Visits: 5 - Answers: Total Score: 16 Risk of Readmission: High Risk Care Management Discharge Reason for Hospitalization: UTI Discharge Plan: Raven returned home today with new orders for HH RN, PT, OT, WELDING MACHINE OPERATOR/TENDER. She was transported via [facility]. She will follow up with her PCP and discharge plan of care. CM discussed options for short term rehab again prior to discharge, but she is not agreeable to going at this time. CM explained that she has met her three night minimum hospitalization, therefore she may be able to transition from the community to a SNF, if she changes her mind about going to rehab. She is happy to be going home. Patient/Family Education Needs: Review discharge instructions and limitations, discussion of self care needs including ask me three and goals of care. Services Needed at Discharge: Home Health Care Services (HH RN, PT, OT, WELDING MACHINE OPERATOR/TENDER), Transportation ([employer])
== END 2022-09-06 14:22 | disposition home health service (06) | DRG 690 ==
LOC: ER 09-01 01:52 → MS 09-01 01:56
PROVIDERS: Nurse Practitioner Acute Care; Nurse Practitioner Family; Admitting Provider Student in an Organized Health Care Education/Training Program; Emergency Provider Emergency Medicine; PCP Family Medicine; Visit Provider Student in an Organized Health Care Education/Training Program
DX: N39.0 Urinary tract infection, site not specified (principal); Z68.42 Body mass index [BMI] 45.0-49.9, adult; I50.9 Heart failure, unspecified; N18.9 Chronic kidney disease, unspecified; E11.22 Type 2 diabetes mellitus with diabetic chronic kidney disease; Z79.4 Long term (current) use of insulin; E66.01 Morbid (severe) obesity due to excess calories; F32.A Depression, unspecified; E78.5 Hyperlipidemia, unspecified; Z87.891 Personal history of nicotine dependence; R53.1 Weakness; R29.6 Repeated falls; J44.9 Chronic obstructive pulmonary disease, unspecified; D64.9 Anemia, unspecified; Z79.84 Long term (current) use of oral hypoglycemic drugs; E55.9 Vitamin D deficiency, unspecified; Z85.3 Personal history of malignant neoplasm of breast; G43.909 Migraine, unspecified, not intractable, without status migrainosus; E11.42 Type 2 diabetes mellitus with diabetic polyneuropathy; B96.20 Unspecified Escherichia coli [E. coli] as the cause of diseases classified elsewhere; B37.31 Acute candidiasis of vulva and vagina; R33.9 Retention of urine, unspecified
CPT/HCPCS: 36415; 51702; 76770; 80048; 80053; 87077; 87637; 93005; 94640; 96365; 96367; 97110; 97163; 97530; 99285; 71046; 81003; 81015; 83735; 83880; 84132; 84484; 85025; 85610; 85730; 87086; 87186; 93010; 99223; 99233; 99239; J0696; J1644; J1941; J3490; J7620

== ENCOUNTER 2022-09-25 16:37 | Emergency (ER) | payer MEDICARE, MEDICAID, SELFPAY ==
[2022-09-25] VITALS (51 sets, daily range): BP systolic 83–128; BP diastolic 36–93; PULSE 68–149; RESP 13–30; TEMP 36.7; O2SAT 83–97
--- NOTE | 2022-09-25 17:00 | DI.CT_ITS ---
Exam(s) CT HEAD CERVICAL SPINE WO EXAM: CT HEAD CERVICAL SPINE WO CLINICAL HISTORY: head injury, fall. TECHNIQUE: Imaging Protocol: Axial computed tomography images with coronal and sagittal reformatted images were created and reviewed COMPARISON: CT CT HEAD WO from 03/16/2022 FINDINGS: Head CT Ventricles and Extra axial spaces: Normal in size and morphology for the patient's age. Hemorrhage: None. Cerebral parenchyma: Normal. Midline shift: None. Brainstem/Cerebellum: Normal. Calvarium: Normal. Visualized Paranasal sinuses/Mastoids: Clear. Cervical Spine CT Exam extremely limited due to patient body habitus. BONES: Vertebral body heights are maintained. There is reversal of the normal cervical lordosis secon bassam to patient positioning. There is mild rightward curvature of the spine which could be secondary to positioning versus muscle spasm. There is no evidence of acute fracture. Degenerative disc changes and facet degenerative changes are seen . SOFT TISSUES: No paraspinal hematoma. The airway appears intact. No pneumothorax is seen at the lung apices. IMPRESSION: Head CT: No acute abnormality. C-spine CT: Degenerative changes, no acute abnormality. RADIATION DOSE DELIVERED: 1,912.81mGy.cm Total DLP DATA REPOSITORY: All CT scans at this facility are submitted to the National Radiology Data Registry (NRDR) Dose Index Registry (DIR) with the [employer] (ACR). RADIATION OPTIMIZATION: All CT scans at this facility use at least one of these dose optimization te chniques: automated exposure control; mA and/or kV adjustment per patient size (includes targeted exa ms where dose is matched to clinical indication); or iterative reconstruction.
[2022-09-25 18:05] LABS: Lactate 1.7 mmol/L (0.6-1.4)
[2022-09-25 18:17] LABS: Abs Immature Grans 0.06 10^3/uL (0.0-0.06); Absolute Basophil Count 0.08 10^3/uL (0.0-0.2); Absolute Eosinophil Count 0.83 10^3/uL (0.0-0.7); Absolute Monocyte Count 0.57 10^3/uL (0.1-0.8); Absolute Neutrophil Count 10.99 10^3/uL (1.2-6.7); Basophils % 0.6; Eosinophils % 6.1; HCT 45.2 % (36.0-46.0); HGB 13.7 g/dL (11.2-15.7); Immature Grans % 0.4; Lymphocytes % 8.3; MCH 28.7 pg (27.0-33.0); MCHC 30.3 % (32.0-36.0); MCV 95 fL (80-95); MPV 10.7 fL (8.0-11.0); Monocytes % 4.2; Neutrophils % 80.4; RBC 4.78 10^6/uL (3.93-5.22); RDW 14.1 % (11.7-14.6); RDW-SD 49.4 fL; WBC 13.67 10^3/uL (4.4-10.8)
[2022-09-25 18:28] LABS: Absolute Lymphocyte Count 1.13 10^3/uL (1.2-3.4)
--- NOTE | 2022-09-25 18:30 | RT.EKG_ITS ---
APPROVED REPORT Exam: Resting ECG Reason for Exam: hyperkalemia Patient Location: E HR:82 bpm ECG Measurements Heart Rate 82 AXIS [place] 167 P 76 QRSd 88 QRS 60 QT 356 T 55 QTc 416 Conclusion Sinus rhythm...normal P axis, V-rate 60- 99 Atrial premature complex...SV complex w/ short R-R interval Low voltage, precordial leads...precordial leads <1.0mV
[2022-09-25 18:35] LABS: ALT 21 U/L (14-59); AST 26 U/L (15-37); Albumin 3.3 g/dL (3.4-5.0); Alkaline Phosphatase 148 U/L (46-116); Anion Gap 8.1 mmol/L (3-11); BUN 47 mg/dL (7-18); Bilirubin, Total 0.4 mg/dL (0.2-1.0); CO2 25.9 mmol/L (21.0-32.0); Calcium 10.4 mg/dL (8.5-10.1); Chloride 100 mmol/L (98-107); Creatine Kinase 60 U/L (26-192); Estimated GFR 10.76 (mL/min/1.73m2); Glucose 290 mg/dL (74-106); Magnesium 1.7 mg/dL (1.8-2.4); Sodium 134 mmol/L (136-145); Total Protein 8.3 g/dL (6.4-8.2)
[2022-09-25 18:37] LABS: CREATININE 4.2 mg/dL (0.55-1.02)
[2022-09-25 18:39] LABS: Potassium 7.2 mmol/L (3.5-5.1)
[2022-09-25 18:51] LABS: Platelet Count 166 10^3/uL (130-400)
[2022-09-25 18:52] LABS: Diff Comment PLT Morph Reviewed
--- NOTE | 2022-09-25 19:07 | DI.CT_ITS ---
Exam(s) CT CHEST/ABD/PEL WO EXAM: CT CHEST/ABD/PEL WO CLINICAL HISTORY: renal failure, abdominal pain. TECHNIQUE: Imaging Protocol: Axial computed tomography images with coronal and sagittal reformatted images were created and reviewed CONTRAST MATERIAL: Intravenous: Omnipaque 350 Contrast volume:100 ml Oral: no COMPARISON: CT ABD PELVIS WO CONTRAST from 06/18/[address] RENAL COLIC WO from 11/23/2021 MR MR ABDOMEN WO/W from 11/30/2021 MR MR PELVIS WO/W from 11/30/2021 CR,XR XR PORTABLE CHEST AP from 03/27/2022 FINDINGS: CHEST: Tracheobronchial tree: Patent where visualized. Pulmonary parenchyma: No consolidation or dominant measurable mass. Mild posterior scarring. Evalua tion limited due to mild respiratory motion. Pleura: No effusion or pneumothorax. Lymph nodes: Within normal limits. Aorta: Thoracic portion non-dilated. Heart: Mildly enlarged. Coronary artery calcifications. Bones: Degenerative changes peer no lytic or blastic lesions.No compression fractures. ABDOMEN: Exam somewhat limited due to motion. Liver: Enlarged. Normal density. No measurable mass. Gallbladder and biliary tract: Status post cholecystectomy. No radiodense calculus or dilation. Pancreas: Normal density, no abnormal calcifications or inflammatory process. Spleen: Normal. Kidneys: Mild atrophy. No radiodense stones or obstructive uropathy. No suspicious masses seen. Adrenal glands: No masses seen. Aorta: Abdominal portion non-dilated. Lymph nodes: Within normal limits. Soft tissues: Right-sided colostomy. Parastomal hernia containing large quantity of fat. No evidenc e of obstruction. Prior subtotal colectomy. Generalized muscular atrophy PELVIS: Bladder: Symmetric distention, no gross wall thickening. Bowel: No obstruction or bowel wall thickening. Peritoneal cavity: No ascites, collection or mesenteric inflammatory response. Stable area of periphe ral calcification seen beneath the left diaphragm. Bones: Degenerative changes. Reproductive organs: Heterogeneous uterus. Bilateral ovarian lesions as seen on prior MRI. IMPRESSION: No acute abnormality in the chest, abdomen or pelvis.. Previously noted suspicious lesions of the ov jamilah and uterus. RADIATION DOSE DELIVERED: 1,947.74mGy.cm Total DLP DATA REPOSITORY: All CT scans at this facility are submitted to the National Radiology Data Registry (NRDR) Dose Index Registry (DIR) with the [employer] ([employer]). RADIATION OPTIMIZATION: All CT scans at this facility use at least one of these dose optimization te chniques: automated exposure control; mA and/or kV adjustment per patient size (includes targeted exa ms where dose is matched to clinical indication); or iterative reconstruction.
[2022-09-25 19:24] LABS: COVID-19 PCR Negative (Negative); Influenza A PCR Negative (Negative); Influenza B PCR Negative (Negative); RSV PCR Negative (Negative)
[2022-09-25 19:25] LABS: Procalcitonin 0.4 ng/mL
[2022-09-25 19:26] LABS: Source Nasopharynx
[2022-09-25] MEDS: Calcium Gluconate 4.65 MEQ/10 ML VIAL 4.65 MG IVP (20:11)
[2022-09-25] MEDS: Normal Saline 500 ML IV (20:21)
--- NOTE | 2022-09-25 20:23 | DI.VRAD_ITS ---
PROCEDURE INFORMATION: Exam: CT Head Without Contrast Exam date and time: 09/25/2022 7:50 PM Age: 72 years old Clinical indication: Injury or trauma; Blunt trauma (contusions or hematomas); Patient HX: Head injury, fall TECHNIQUE: Imaging protocol: Computed tomography of the head without contrast. COMPARISON: CT HEAD WO 03/16/2022 8:23 PM FINDINGS: Brain: There is mild diffuse heterogeneity of the white matter attenuation, consistent with chronic white matter microangiopathic ischemic changes. There is mild diffuse cerebral atrophy present. There is no evidence of intracranial hemorrhage. There is no evidence of acute intracranial injury or other pathologic process. There is no evidence of an acute ischemic event. Cerebral ventricles: The ventricular system demonstrates mild diffuse compensatory enlargement. Paranasal sinuses: There is no evidence of fluid levels, mucoperiosteal thickening, or opacification to suggest acute or chronic sinusitis. Mastoid air cells: The mastoid aircells are normal. Orbital cavities: The orbits are normal without evidence of fracture. There is no evidence of retro-bulbar hemorrhage. There is no evidence of globe or lens injury. Bones/joints: The bony cranium shows no evidence of injury or other acute pathologic processes. Soft tissues: The extracranial soft tissues are normal. IMPRESSION: 1. No evidence of an acute intracranial abnormality. 2. There is mild age-related atrophy and chronic white matter ischemic changes, with compensatory ventricular dilation. PROCEDURE INFORMATION: Exam: CT Cervical Spine Without Contrast Exam date and time: 09/25/2022 7:50 PM Age: 72 years old Clinical indication: Injury or trauma; Blunt trauma (contusions or hematomas); Patient HX: Head injury, fall TECHNIQUE: Imaging protocol: Computed tomography of the cervical spine without contrast. COMPARISON: CT HEAD WO 03/16/2022 8:23 PM FINDINGS: Bones/joints: There is no evidence of acute vertebral body element or posterior vertebral element fracture. There is a nonspecific reversal of the normal cervical lordosis. This may represent paravertebral muscle spasm versus positioning. Clinical correlation recommended. The anterior posterior borders of the vertebral bodies are in good alignment. No evidence of acute subluxation. No evidence of acute compression fractures.. There are moderate degenerative changes of the cervical spine predominantly at C4-C5, C5-C6 and C6-C7. There is no evidence of acute disc injury. The spinal canal and cord are otherwise normal.. The visualized portions of the skull base and brain are unremarkable. Lungs: Please see CT of the chest and lungs. Lymph nodes: There is no evidence of lymphadenopathy. Soft tissues: There is a convex dextro torticollis of the cervical spine which may represent paravertebral muscle spasm versus positioning. The prevertebal, paravertebral, pharyngeal, hypopharyngeal, and laryngeal soft tissue structures are unremarkable. Other findings: Mild neurforaminal narrowing secondary to degenerative changes present. Mild narrowing of the central spinal canal secondary to degenerative changes. IMPRESSION: 1. There is no evidence of acute vertebral body element or posterior vertebral element fracture. 2. There is a nonspecific reversal of the normal cervical lordosis. This may represent paravertebral muscle spasm versus positioning. Clinical correlation recommended. 3. The anterior posterior borders of the vertebral bodies are in good alignment. No evidence of acute subluxation. 4. There are moderate degenerative changes of the cervical spine predominantly at C4-C5, C5-C6 and C6-C7. 5. There is no evidence of acute disc injury. Dictated and Authenticated by: Reg Wisdom MD. Ordering:KRYSTAL Cabrera MD
[2022-09-25] MEDS: Sodium Zirconium Cyclosilicate 10 GM PKT PO (20:30)
[2022-09-25] MEDS: Normal Saline 50 ML 150 ML (20:32)
[2022-09-25] MEDS: Insulin REGULAR-Human 100 UNITS/ML UNIT 10 UNITS IV (20:42)
[2022-09-25] MEDS: Dextrose 50%-Water 25 GM/50 ML SYR IVP (20:49)
--- NOTE | 2022-09-25 20:55 | DI.VRAD_ITS ---
PROCEDURE INFORMATION: Exam: CT Chest Without Contrast; Diagnostic Exam date and time: 09/25/2022 7:56 PM Age: 72 years old Clinical indication: Generalized; Other: Abdominal pain, renal failure; Patient HX: Renal failure, abd pain; Fall TECHNIQUE: Imaging protocol: Diagnostic computed tomography of the chest without contrast. COMPARISON: CT CHEST PE ABD PELVIS W 11/04/2021 4:50 PM FINDINGS: Lungs: There is heterogeneous attenuation of the pulmonary parenchyma, consistent with air trapping from underlying small airways disease. There is diffuse mild nonspecific prominence of the pulmonary interstitium. Pleural spaces: There is no evidence of pneumothorax. There are no pleural effusions present. Heart: The cardiac structures are normal. Pericardium is unremarkable. Coronary arteries: There is moderate atherosclerotic calcification of the coronary arteries. Mediastinal space: The mediastinal contour is normal. Lymph nodes: There is no evidence of lymphadenopathy. Vasculature: The aorta demonstrates mild atherosclerotic calcification. Intraperitoneal space: Please see CT of the abdomen and pelvis. Bones/joints: The skeletal structures and soft tissues show no evidence of fracture or other acute processes. The distal thoracic spine and the thoracolumbar spine demonstrates moderate degenerative changes at multiple levels. Soft tissues: The extrathoracic soft tissues are unremarkable. IMPRESSION: There is heterogeneous attenuation of the pulmonary parenchyma, consistent with air trapping from underlying small airways disease. PROCEDURE INFORMATION: Exam: CT Abdomen And Pelvis Without Contrast Exam date and time: 09/25/2022 7:56 PM Age: 72 years old Clinical indication: Generalized; Other: Abdominal pain, renal failure; Patient HX: Renal failure, abd pain; Fall TECHNIQUE: Imaging protocol: Computed tomography of the abdomen and pelvis without contrast. COMPARISON: MR PELVIS WO/W 11/30/2021 9:43 AM FINDINGS: Lungs: Please see CT of the chest and lungs Liver: There are no focal liver lesions present. There is no evidence of intrahepatic or extrahepatic biliary ductal dilation. The liver is enlarged measuring 17 cm. Gallbladder and bile ducts: There has been a cholecystectomy. Pancreas: The pancreas is normal. Spleen: The spleen is normal. Adrenal glands: The adrenal glands are normal without evidence of mass or enlargement. Kidneys and ureters: The kidneys are normal, no evidence of nephrolithiasis or hydronephrosis. The ureters are normal caliber and follow a normal caliber and course. Stomach and bowel: There is a colostomy site present within the right lower quadrant. There is been a left-sided colectomy. Appendix: There is no evidence of appendicitis. Appendix is likely surgically absent. Intraperitoneal space: There is no free intraperitoneal air. There is no evidence of free intraperitoneal or pelvic fluid. Vasculature: The aorta demonstrates mild atherosclerotic calcification. The arterial peripheral vasculature demonstrates diffuse mild atherosclerotic calcification. Lymph nodes: There is no evidence of lymphadenopathy. Urinary bladder: The bladder is normal. Reproductive: The uterus is dextroflexed. The endometrial cavity is prominent and there is likely fluid and possible mass present within the endometrial cavity similar to the prior study. MRI showed suspicious areas on prior study with recommendation for biopsies. There is a 3.2 cm right ovarian cyst. There is a large left cystic adnexal mass with a septation measuring 8 cm. This is unchanged compared to the prior study of 11/04/2021.Prior MRI dictation recommended biopsy. Bones/joints: The thoracolumbar spine demonstrates moderate degenerative changes at multiple levels.The lumbar spine demonstrates mild degenerative changes. Soft tissues: There is a parastomal hernia containing fat mesentery. IMPRESSION: 1. The uterus is dextroflexed. The endometrial cavity is prominent and there is likely fluid and possible mass present within the endometrial cavity similar to the prior study. MRI showed suspicious areas on prior study with recommendation for biopsies. 2. There is a 3.2 cm right ovarian cyst. There is a large left cystic adnexal mass with a septation measuring 8 cm. This is unchanged compared to the prior study of 11/04/2021.Prior MRI dictation recommended biopsy. 3. Hepatomegaly Dictated and Authenticated by: Reg Wisdom MD. Ordering:KRYSTAL Cabrera MD
[2022-09-25 21:46] LABS: Anion Gap 10.1 mmol/L (3-11); BUN 45 mg/dL (7-18); CO2 18.9 mmol/L (21.0-32.0); Calcium 10.2 mg/dL (8.5-10.1); Chloride 103 mmol/L (98-107); Estimated GFR 11.41 (mL/min/1.73m2); Glucose 216 mg/dL (74-106); Potassium 5.9 mmol/L (3.5-5.1); Sodium 132 mmol/L (136-145)
[2022-09-25 22:03] LABS: Bilirubin Negative (Negative); Blood Moderate (Negative); Clarity Cloudy (Clear); Glucose Negative (Negative); Ketones Negative (Negative); Leukocyte Esterase Moderate (Negative); Nitrite Positive (Negative); Specific Gravity 1.025 (1.005-1.025); Urobilinogen 0.2 EU/dL (Up TO 0.2); pH 5.5 (5-8)
[2022-09-25 22:11] LABS: BE (Venous) -5 mmol/L (-2-3); HCO3 (Venous) 24 mmol/L (23-28); O2 Sat (Venous) 68 %; TCO2 (Venous) 22 mmol/L (24-29); pO2 (Venous) 39 mmHg
[2022-09-25 22:14] LABS: pCO2 (Venous) 61 mmHg (41-51)
[2022-09-25 22:18] LABS: WBC >50 HPF (0-5)
[2022-09-25 22:19] LABS: C & S Indicated? Yes
--- NOTE | 2022-09-25 22:54 | ED.GENADUL_ITS ---
Discharge Plan Disposition Patient Disposition: Transfer-Acute Inpatient Care Specific Acute Inpt Facility: Other Condition: Critical Discharge Details Clinical Impression: Diabetes mellitus type 2, Chronic kidney disease, Acute UTI, Acute hyperkalemia Primary Care Provider: Mary Ann Luo ED Provider: Deborah Dubon Home Meds and New Rx's Prescriptions: No Action simvastatin [Zocor] 40 MG tablet 40 mg PO HS calcium carbonate-vitamin D3 [Calcium 600 + D(3)] 1 EACH tablet 1 ea PO DAILY quetiapine 25 mg Tablet 12.5 mg PO QPM Qty: 15 0RF magnesium oxide 400 mg magnesium Tablet 400 mg PO BID Qty: 60 0RF lisinopril 10 mg tablet 10 mg PO DAILY tramadol 50 mg Tablet 100 mg PO QHS aspirin 81 mg Tablet,Chewable 81 mg PO DAILY insulin glargine [Lantus Solostar U-100 Insulin] 100 unit/mL (3 mL) insulin pen 25 unit SUBCUT BID Qty: 0 0RF Patient Comments: INJECT 56 UNITS SUBCUTANEOUSLY TWO TIMES A DAY- Once in the am and once in the pm cholecalciferol (vitamin D3) 50 mcg (2,000 unit) tablet 4,000 unit PO DAILY Patient Comments: TAKE TWO TABLETS BY MOUTH EVERY DAY duloxetine 60 mg capsule,delayed release(DR/EC) 60 mg PO BID Patient Comments: TAKE ONE CAPSULE BY MOUTH TWICE A DAY glipizide 5 mg tablet 10 mg PO BID Patient Comments: TAKE TWO TABLETS BY MOUTH TWICE A DAY omeprazole 40 mg capsule,delayed release(DR/EC) 40 mg PO DAILY Patient Comments: TAKE ONE CAPSULE BY MOUTH EVERY DAY pregabalin 50 mg capsule 50 mg PO TID Patient Comments: TAKE ONE CAPSULE BY MOUTH THREE TIMES A DAY metoprolol succinate 25 mg Tablet Extended Release 24 Hr 25 mg PO DAILY Qty: 30 0RF nystatin 100,000 unit/gram Powder 1 applic topical BID Qty: 0 0RF Discharge Data Discharge Date/Time-TO BE ENTERED AT DEPARTURE: 09/26/22 00:40 Medical Decision Making This 72-year-old female presents with report of weakness. Secondary to age, comorbidities, CT imaging, and urinalysis for ordered Patient initially was alert and oriented and has developed some hallucinations as her visit has progressed, her vitals have remained stable Creatinine of 4, increased from 2.3, potassium is 7.3, repeat after calcium and insulin administration and 5.9 EKG does not show evidence of acute abnormality, specifically no other changes associated with hyperkalemia CT chest abdomen and pelvis are baseline for patient without evidence of obstructive uropathy, no pneumonia's which patient does not desire further investigation CT head and cervical spine per radiology interpretation Negative Received 1 Only other, receiving infusion to 50 cc Urinalysis shows evidence of urinary tract infection, given 1 g of ceftriaxone secondary to renal disease Procalcitonin and lactate negative As patient was becoming more confused, VBG was ordered and pH of 7.2, will administer bicarbonate, 1 ampoule Confirmed with daughter and patient, full CODE STATUS As we do not have capacity to accept this patient to admission to our hospital and all other local hospitals are full, reports it was the next hospital able to accept this patient in transfer, I spoke with Dr. Correa he is excepted patient to the emergency department HPI General Date/Time Provider Initiated Documentation: 09/25/22 16:47 . HPI Narrative: This 72-year-old female with a history of COPD, CHF, anemia, delirium, urinary tract infection, chronic kidney disease presents with report of weakness and frequent falls. Patient cannot tell me what is at this time she just states she feels crummy. She is typically wheelchair-bound with transfers. She states she has been unable to transfer to the toilet secondary to weakness. She states she fell today and had secondary to this. She denies any chest pain, shortness of breath, nausea, vomiting. She states her stools have been loose. She does have an ostomy, she does not feel functioning well with her colostomy bags being nonadherent. She states she had this last changed today. Related Data Home Medications Medication Instructions Recorded Confirmed calcium carbonate 600 mg-vitamin 1 ea PO DAILY 05/10/13 09/25/22 D3 10 mcg (400 unit) tablet (Calcium 600 + D(3)) simvastatin 40 mg tablet (Zocor) 40 mg PO HS 05/10/13 09/25/22 cholecalciferol (vitamin D3) 50 4,000 unit PO DAILY 11/05/21 09/25/22 mcg (2,000 unit) tablet duloxetine 60 mg capsule,delayed 60 mg PO BID 11/05/21 09/25/22 release glipizide 5 mg tablet 10 mg PO BID 11/05/21 09/25/22 omeprazole 40 mg capsule,delayed 40 mg PO DAILY 11/05/21 09/25/22 release pregabalin 50 mg capsule 50 mg PO TID 11/05/21 09/25/22 metoprolol succinate 25 mg 25 mg PO DAILY #30 tabs 11/09/21 09/25/22 tablet,extended release 24 hr magnesium oxide 400 mg PO BID #60 tabs 12/02/21 09/25/22 quetiapine 25 mg tablet 12.5 mg PO QPM #15 tabs 12/02/21 09/25/22 lisinopril 10 mg tablet 10 mg PO DAILY 03/16/22 09/25/22 tramadol 50 mg tablet 100 mg PO QHS 03/17/22 09/25/22 aspirin 81 mg chewable tablet 81 mg PO DAILY 03/24/22 09/25/22 insulin glargine 100 unit/mL (3 25 unit (0.25 mL) subcut BID #0 mL 04/03/22 09/25/22 mL) subcutaneous pen (Lantus Solostar U-100 Insulin) nystatin 100,000 unit/gram topical 1 applic topical BID #0 grams 09/06/22 09/25/22 powder Previous Rx's Medication Instructions Recorded metoprolol succinate 25 mg 25 mg PO DAILY #30 tabs 11/09/21 tablet,extended release 24 hr magnesium oxide 400 mg PO BID #60 tabs 12/02/21 quetiapine 25 mg tablet 12.5 mg PO QPM #15 tabs 12/02/21 insulin glargine 100 unit/mL (3 25 unit (0.25 mL) subcut BID #0 mL 04/03/22 mL) subcutaneous pen (Lantus Solostar U-100 Insulin) nystatin 100,000 unit/gram topical 1 applic topical BID #0 grams 09/06/22 powder Allergies Allergy/AdvReac Type Severity Reaction Status Date / Time epinephrine Allergy Severe chest Unverified 09/01/22 00:16 pain/heart attack Penicillins Allergy Intermediate h fever Unverified 09/01/22 00:16 banana [Banana] Allergy Unverified 09/01/22 00:16 NSAIDS (Non-Steroidal Allergy unkown Unverified 09/01/22 00:16 Anti-Inflamma Sulfa (Sulfonamide Allergy rash,fever Unverified 09/01/22 00:16 Antibiotics) Tetracyclines Allergy rash fever Unverified 09/01/22 00:16 sodium polystyrene sulfonate AdvReac Severe tachy/dyspn Unverified 09/01/22 00:16 [From Kayexalate] ea/rash Niacin Preparations AdvReac Intermediate flushing Unverified 09/01/22 00:16 General Stated Complaint: GenMedical TASHA: 3 PFSH All Active Problems Acute hyperkalemia (Acute) Impaired instrumental activities of daily living (Acute) Yeast vaginitis (Acute) Pain (Acute) COPD (chronic obstructive pulmonary disease) (Chronic) Acute UTI (Acute) CHF (congestive heart failure) (Chronic) Fall (Acute) Anemia (Chronic) Mass of left ovary (Acute) Chronic kidney disease (Chronic) Essential hypertension (Chronic) Diabetes mellitus type 2 (Chronic) On Metformin Back pain (Acute) Morbid obesity (Chronic) Hyperlipidemia (Chronic) Depression (Chronic) Vitamin D deficiency (Chronic) History of colostomy (Chronic) Medical History Anemia (05/03/13) Hemoglobin 8.2. Anemia Depression Diabetes mellitus Diverticulitis Recurrent. S/p high risk hemicolectomy in the setting of sepsis and hypotension 03/22/2013. Complication of a stomal leak resulting in an abdominal abscess. Readmitted to [facility] 05/03/13 emergently with sepsis syndrome and had an abdominal abscess drained. Completed rehab at [facility] with discharge most recently on after extensive dressing care of the abdominal wound with a wound VAC. 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 Leukocytosis. Intermittently febrile. Fall Gastroesophageal reflux disease GERD (gastroesophageal reflux disease) Hepatitis C Recent negative viral count. History of breast cancer History of hepatitis C History of incisional hernia History of renal failure Migraine Morbid obesity Osteopenia Palliative care patient Vitamin D deficiency Surgical History Colectomy H/O mastectomy Hernia Repair, Incisional x2 S/P cholecystectomy Family History Mother No problems noted. Father No problems noted. Social History Smoking/Tobacco Use Status: Former Tobacco Use Smoking risk assessment performed?: Yes Alcohol Intake: never Drug use: Never Substance use type: does not use Do you feel safe at home: Yes Do you feel safe in your relationship?: Yes Exam Const General: cooperative and disheveled Orientation: alert and oriented x3 Eyes Pupils: PERRL Resp Effort & Inspection: normal respiratory effort Auscultation: clear to auscultation bilaterally Cardio Rate: regular rate Rhythm: regular rhythm Neuro General: patient alert Other: oriented x2, cn2-12 intact Extrem Other: neurovascularly intact, no calf swelling Course Vital Signs Vital signs: Vital Signs Temperature 36.7 C 09/25/22 16:31 Pulse 91 H 09/25/22 16:31 Respiratory Rate 20 09/25/22 16:31 Blood Pressure 112/48 L 09/25/22 16:31 Pulse Oximetry 95 09/25/22 16:31 Temperature 36.7 C 09/25/22 16:31 Temperature Source Oral 09/25/22 16:31 Pulse 86 09/25/22 17:01 Pulse 88 09/25/22 16:50 Respiratory Rate 13 09/25/22 17:00 Respiratory Effort Normal 09/25/22 21:57 Respiratory Depth Normal 09/25/22 21:57 Respiratory Pattern Normal 09/25/22 21:57 Blood Pressure 121/46 L 09/25/22 17:01 Blood Pressure Mean 60 09/25/22 17:01 Blood Pressure Position Supine 09/25/22 16:31 Pulse Oximetry 83 L 09/25/22 16:42 Oxygen Delivery Method Room Air 09/25/22 16:31 Oxygen Flow Rate 0 09/25/22 16:31 Pain Level 8 09/25/22 16:31 Lab/Test Results Lab/Test Results: 09/25/22 21:55 Urine - Reflex from Ua Urine Culture - Pending Laboratory Tests Range/Units 09/25/22 09/25/22 09/25/22 18:01 18:01 18:01 WBC (4.4-10.8) 10^3/uL 13.67 H RBC (3.93-5.22) 10^6/uL 4.78 Hgb (11.2-15.7) g/dL 13.7 Hct (36.0-46.0) % 45.2 MCV (80-95) fL 95 MCH (27.0-33.0) pg 28.7 MCHC (32.0-36.0) % 30.3 L RDW (11.7-14.6) % 14.1 Plt Count (130-400) 10^3/uL 166 MPV (8.0-11.0) fL 10.7 Immature Gran % 0.4 Neutrophils % 80.4 Lymphocytes % 8.3 Monocytes % 4.2 Eosinophils % 6.1 Basophils % 0.6 Nucleated RBC % (0.0-0.3) % 0.0 Absolute Neutrophils (1.2-6.7) 10^3/uL 10.99 H Absolute Lymphocytes (1.2-3.4) 10^3/uL 1.13 L Absolute Monocytes (0.1-0.8) 10^3/uL 0.57 Absolute Eosinophils (0.0-0.7) 10^3/uL 0.83 H Absolute Basophils (0.0-0.2) 10^3/uL 0.08 VBG pH (7.31-7.41) VBG pCO2 (41-51) mmHg VBG pO2 mmHg VBG HCO3 (23-28) mmol/L VBG Total CO2 (24-29) mmol/L VBG O2 Saturation % VBG Base Excess (-2-3) mmol/L VBG Lactate (0.6-1.4) mmol/L 1.7 H Sodium (136-145) mmol/L 134 L Potassium (3.5-5.1) mmol/L 7.2 H* Chloride (98-107) mmol/L 100 Carbon Dioxide (21.0-32.0) mmol/L 25.9 Anion Gap (3-11) mmol/L 8.1 BUN (7-18) mg/dL 47 H Creatinine (0.55-1.02) mg/dL 4.2 H* Est GFR (CKD-EPI 2020) (mL/min/1.73m2) 10.76 Glucose (74-106) mg/dL 290 H Calcium (8.5-10.1) mg/dL 10.4 H Magnesium (1.8-2.4) mg/dL 1.7 L Total Bilirubin (0.2-1.0) mg/dL 0.4 AST (15-37) U/L 26 ALT (14-59) U/L 21 Alkaline Phosphatase (46-116) U/L 148 H Creatine Kinase (26-192) U/L 60 Total Protein (6.4-8.2) g/dL 8.3 H Albumin (3.4-5.0) g/dL 3.3 L Procalcitonin ng/mL 0.4 Urine Color (Yellow) Urine Clarity (Clear) Urine pH (5-8) Ur Specific [place] (1.005-1.025) Urine Protein (Negative) mg/dL Urine Ketones (Negative) mg/dL Urine Blood (Negative) Urine Nitrite (Negative) Urine Bilirubin (Negative) Urine Urobilinogen (Up TO 0.2) EU/dL Ur Leukocyte Esterase (Negative) Urine RBC Urine WBC (0-5) HPF Ur Epithelial Cells Urine Crystals Urine Bacteria Urine Mucus Ur Culture Indicated? Urine Glucose (Negative) mg/dL COVID-19 Source SARS-CoV-2 (PCR) (Negative) Influenza Type A (PCR) (Negative) Influenza Type B (PCR) (Negative) RSV (PCR) (Negative) Range/Units 09/25/22 09/25/22 09/25/22 18:01 20:08 21:30 WBC (4.4-10.8) 10^3/uL RBC (3.93-5.22) 10^6/uL Hgb (11.2-15.7) g/dL Hct (36.0-46.0) % MCV (80-95) fL MCH (27.0-33.0) pg MCHC (32.0-36.0) % RDW (11.7-14.6) % Plt Count (130-400) 10^3/uL MPV (8.0-11.0) fL Immature Gran % Neutrophils % Lymphocytes % Monocytes % Eosinophils % Basophils % Nucleated RBC % (0.0-0.3) % Absolute Neutrophils (1.2-6.7) 10^3/uL Absolute Lymphocytes (1.2-3.4) 10^3/uL Absolute Monocytes (0.1-0.8) 10^3/uL Absolute Eosinophils (0.0-0.7) 10^3/uL Absolute Basophils (0.0-0.2) 10^3/uL VBG pH (7.31-7.41) 7.20 L VBG pCO2 (41-51) mmHg 61 H* VBG pO2 mmHg 39 VBG HCO3 (23-28) mmol/L 24 VBG Total CO2 (24-29) mmol/L 22 L VBG O2 Saturation % 68 VBG Base Excess (-2-3) mmol/L -5 L VBG Lactate (0.6-1.4) mmol/L Sodium (136-145) mmol/L 132 L Potassium (3.5-5.1) mmol/L 5.9 H D Chloride (98-107) mmol/L 103 Carbon Dioxide (21.0-32.0) mmol/L 18.9 L Anion Gap (3-11) mmol/L 10.1 BUN (7-18) mg/dL 45 H Creatinine (0.55-1.02) mg/dL 4.0 H* Est GFR (CKD-EPI 2020) (mL/min/1.73m2) 11.41 Glucose (74-106) mg/dL 216 H Calcium (8.5-10.1) mg/dL 10.2 H Magnesium (1.8-2.4) mg/dL Total Bilirubin (0.2-1.0) mg/dL AST (15-37) U/L ALT (14-59) U/L Alkaline Phosphatase (46-116) U/L Creatine Kinase (26-192) U/L Total Protein (6.4-8.2) g/dL Albumin (3.4-5.0) g/dL Procalcitonin ng/mL Urine Color (Yellow) Urine Clarity (Clear) Urine pH (5-8) Ur Specific [place] (1.005-1.025) Urine Protein (Negative) mg/dL Urine Ketones (Negative) mg/dL Urine Blood (Negative) Urine Nitrite (Negative) Urine Bilirubin (Negative) Urine Urobilinogen (Up TO 0.2) EU/dL Ur Leukocyte Esterase (Negative) Urine RBC Urine WBC (0-5) HPF Ur Epithelial Cells Urine Crystals Urine Bacteria Urine Mucus Ur Culture Indicated? Urine Glucose (Negative) mg/dL COVID-19 Source Nasopharynx SARS-CoV-2 (PCR) (Negative) Negative Influenza Type A (PCR) (Negative) Negative Influenza Type B (PCR) (Negative) Negative RSV (PCR) (Negative) Negative Range/Units 09/25/22 21:55 WBC (4.4-10.8) 10^3/uL RBC (3.93-5.22) 10^6/uL Hgb (11.2-15.7) g/dL Hct (36.0-46.0) % MCV (80-95) fL MCH (27.0-33.0) pg MCHC (32.0-36.0) % RDW (11.7-14.6) % Plt Count (130-400) 10^3/uL MPV (8.0-11.0) fL Immature Gran % Neutrophils % Lymphocytes % Monocytes % Eosinophils % Basophils % Nucleated RBC % (0.0-0.3) % Absolute Neutrophils (1.2-6.7) 10^3/uL Absolute Lymphocytes (1.2-3.4) 10^3/uL Absolute Monocytes (0.1-0.8) 10^3/uL Absolute Eosinophils (0.0-0.7) 10^3/uL Absolute Basophils (0.0-0.2) 10^3/uL VBG pH (7.31-7.41) VBG pCO2 (41-51) mmHg VBG pO2 mmHg VBG HCO3 (23-28) mmol/L VBG Total CO2 (24-29) mmol/L VBG O2 Saturation % VBG Base Excess (-2-3) mmol/L VBG Lactate (0.6-1.4) mmol/L Sodium (136-145) mmol/L Potassium (3.5-5.1) mmol/L Chloride (98-107) mmol/L Carbon Dioxide (21.0-32.0) mmol/L Anion Gap (3-11) mmol/L BUN (7-18) mg/dL Creatinine (0.55-1.02) mg/dL Est GFR (CKD-EPI 2020) (mL/min/1.73m2) Glucose (74-106) mg/dL Calcium (8.5-10.1) mg/dL Magnesium (1.8-2.4) mg/dL Total Bilirubin (0.2-1.0) mg/dL AST (15-37) U/L ALT (14-59) U/L Alkaline Phosphatase (46-116) U/L Creatine Kinase (26-192) U/L Total Protein (6.4-8.2) g/dL Albumin (3.4-5.0) g/dL Procalcitonin ng/mL Urine Color (Yellow) Yellow Urine Clarity (Clear) Cloudy Urine pH (5-8) 5.5 Ur Specific [place] (1.005-1.025) 1.025 Urine Protein (Negative) mg/dL 100 H Urine Ketones (Negative) mg/dL Negative Urine Blood (Negative) Moderate H Urine Nitrite (Negative) Positive H Urine Bilirubin (Negative) Negative Urine Urobilinogen (Up TO 0.2) EU/dL 0.2 Ur Leukocyte Esterase (Negative) Moderate H Urine RBC Not Applicable Urine WBC (0-5) HPF >50 H Ur Epithelial Cells Not Applicable Urine Crystals Not Applicable Urine Bacteria Not Applicable Urine Mucus Not Applicable Ur Culture Indicated? Yes Urine Glucose (Negative) mg/dL Negative COVID-19 Source SARS-CoV-2 (PCR) (Negative) Influenza Type A (PCR) (Negative) Influenza Type B (PCR) (Negative) RSV (PCR) (Negative) Critical Care Time Critical Care Time Attestation: This 72-year-old female presents with hyperkalemia and acute renal failure, placed on telemetry monitoring, calcium, insulin, albuterol, sodium zirconium, IV fluid resuscitation for likely prerenal kidney failure Consultation with numerous local facilities, approximately 45 minutes trying to transfer patient to higher level of care secondary to capacity and comorbidity, urinary tract infection with IV antibiotics in the presence of acute renal failure
[2022-09-25] MEDS: cefTRIAXone 1 GM/50 ML BAG IVPB (23:53)
[2022-09-25] MEDS: Sodium Bicarbonate 50 MEQ/50 ML SYR IVP (23:53)
[2022-09-26] VITALS: PULSE 89; RESP 28
[2022-09-26 00:01] VITALS: BP 148/85; PULSE 88; PULSE 92; RESP 21
[2022-09-26 00:10] VITALS: PULSE 95; RESP 22
--- NOTE | 2022-09-26 00:14 | NUR.NOTE ---
Nursing Note:Report called to [facility] in [place]. Spoke with Meggan Goodson RN in the ER. All questions answered.
[2022-09-26 00:16] VITALS: PULSE 93; RESP 17
[2022-09-26 00:20] VITALS: PULSE 93; RESP 20
--- NOTE | 2022-09-26 00:38 | NUR.NOTE ---
Nursing Note: Paramedics at bedside to take pt out of ER via transfer to [place], [place].
[2022-09-26] MEDS: LORazepam 2 MG/ML VIAL 1 MG IVP (01:03)
--- NOTE | 2022-09-29 08:31 | ED.PROG_ITS ---
Date of service: 09/29/22 Time of Service: 08:32 Medical Decision Making I received the results of a positive urine culture on this patient who is in the emergency department earlier this week. Patient was transferred to [facility]. Health blood donor unit assistant will help to confirm patient's location and fax relevant urine culture results. Discharge Plan Disposition Patient Disposition: Transfer-Acute Inpatient Care Specific Acute Inpt Facility: Other Condition: Critical Discharge Details Clinical Impression: Diabetes mellitus type 2, Chronic kidney disease, Acute UTI, Acute hyperkalemia Primary Care Provider: Mary Ann Luo ED Provider: Deborah Dubon Home Meds and New Rx's Prescriptions: No Action simvastatin [Zocor] 40 MG tablet 40 mg PO HS calcium carbonate-vitamin D3 [Calcium 600 + D(3)] 1 EACH tablet 1 ea PO DAILY quetiapine 25 mg Tablet 12.5 mg PO QPM Qty: 15 0RF magnesium oxide 400 mg magnesium Tablet 400 mg PO BID Qty: 60 0RF lisinopril 10 mg tablet 10 mg PO DAILY tramadol 50 mg Tablet 100 mg PO QHS aspirin 81 mg Tablet,Chewable 81 mg PO DAILY insulin glargine [Lantus Solostar U-100 Insulin] 100 unit/mL (3 mL) insulin pen 25 unit SUBCUT BID Qty: 0 0RF Patient Comments: INJECT 56 UNITS SUBCUTANEOUSLY TWO TIMES A DAY- Once in the am and once in the pm cholecalciferol (vitamin D3) 50 mcg (2,000 unit) tablet 4,000 unit PO DAILY Patient Comments: TAKE TWO TABLETS BY MOUTH EVERY DAY duloxetine 60 mg capsule,delayed release(DR/EC) 60 mg PO BID Patient Comments: TAKE ONE CAPSULE BY MOUTH TWICE A DAY glipizide 5 mg tablet 10 mg PO BID Patient Comments: TAKE TWO TABLETS BY MOUTH TWICE A DAY omeprazole 40 mg capsule,delayed release(DR/EC) 40 mg PO DAILY Patient Comments: TAKE ONE CAPSULE BY MOUTH EVERY DAY pregabalin 50 mg capsule 50 mg PO TID Patient Comments: TAKE ONE CAPSULE BY MOUTH THREE TIMES A DAY metoprolol succinate 25 mg Tablet Extended Release 24 Hr 25 mg PO DAILY Qty: 30 0RF nystatin 100,000 unit/gram Powder 1 applic topical BID Qty: 0 0RF Discharge Data Discharge Date/Time-TO BE ENTERED AT DEPARTURE: 09/26/22 00:40
--- NOTE | 2022-09-29 09:03 | NUR.NOTE ---
Nursing Note: Faxed to [facility] the Urine culture result to the unit she is on.
== END 2022-09-26 00:40 | disposition short-term general hospital (02) ==
LOC: ER 17:47
PROVIDERS: Emergency Provider Physician Assistant; PCP Family Medicine
DX: E11.22 Type 2 diabetes mellitus with diabetic chronic kidney disease (principal); N18.9 Chronic kidney disease, unspecified; N39.0 Urinary tract infection, site not specified; E87.5 Hyperkalemia; I50.9 Heart failure, unspecified; J44.9 Chronic obstructive pulmonary disease, unspecified; R44.3 Hallucinations, unspecified; Z79.4 Long term (current) use of insulin; Z79.82 Long term (current) use of aspirin; Z79.899 Other long term (current) drug therapy; Z20.822 Contact with and (suspected) exposure to COVID-19
CPT/HCPCS: 36415; 71250; 80048; 80053; 82550; 82805; 84145; 87077; 87637; 93005; 96361; 96365; 96375; 99291; 70450; 72125; 74176; 81003; 81015; 83605; 83735; 85025; 87086; 87186; 93010; J0610; J0696; J2060

== ENCOUNTER 2022-12-26 00:26 | Emergency (ER) | payer MEDICARE, MEDICAID, SELFPAY ==
[2022-12-26 00:29] VITALS: BP 178/82; PULSE 106; RESP 20; TEMP 35.1; O2SAT 92
--- NOTE | 2022-12-26 00:30 | DI.RAD_ITS ---
Exam(s) XR PELVIS AP XR FEMUR LT EXAM: XR PELVIS AP CLINICAL HISTORY: buttock pain s/p fall from bed. TECHNIQUE: 2D digital imaging was performed. One view pelvis, AP and lateral views of the femur. COMPARISON: MR MR PELVIS WO/W from 11/30/2021 CR,XR XR FEMUR LT from 12/26/2022 FINDINGS: BONES: Exam somewhat limited due to patient body habitus, particularly the cross-table lateral view o f the hip. No acute fracture is present. No bony destructive lesion is seen. JOINTS: No dislocation present. Degenerative changes noted at the knee. SOFT TISSUE: Chronic calcifications in the soft tissues of the lateral thigh. IMPRESSION: No acute abnormality. DATA REPOSITORY: RADIATION DOSE DELIVERED:
[2022-12-26] MEDS: Acetaminophen 325 MG TAB 650 MG PO (00:45)
--- NOTE | 2022-12-26 00:46 | ED.GENADUL_ITS ---
Discharge Plan Disposition Patient Disposition: Home Condition: Good Discharge Details Clinical Impression: Morbid obesity, Fall as cause of accidental injury at home as place of occurrence, Contusion of left lower extremity Primary Care Provider: Mary Ann Luo ED Provider: Juanis Escobar Home Meds and New Rx's Prescriptions: Continued simvastatin [Zocor] 40 MG tablet 40 mg PO HS calcium carbonate-vitamin D3 [Calcium 600 + D(3)] 1 EACH tablet 1 ea PO DAILY quetiapine 25 mg Tablet 12.5 mg PO QPM Qty: 15 0RF magnesium oxide 400 mg magnesium Tablet 400 mg PO BID Qty: 60 0RF lisinopril 10 mg tablet 10 mg PO DAILY tramadol 50 mg Tablet 100 mg PO QHS aspirin 81 mg Tablet,Chewable 81 mg PO DAILY insulin glargine [Lantus Solostar U-100 Insulin] 100 unit/mL (3 mL) insulin pen 25 unit SUBCUT BID Qty: 0 0RF Patient Comments: INJECT 56 UNITS SUBCUTANEOUSLY TWO TIMES A DAY- Once in the am and once in the pm cholecalciferol (vitamin D3) 50 mcg (2,000 unit) tablet 4,000 unit PO DAILY Patient Comments: TAKE TWO TABLETS BY MOUTH EVERY DAY duloxetine 60 mg capsule,delayed release(DR/EC) 60 mg PO BID Patient Comments: TAKE ONE CAPSULE BY MOUTH TWICE A DAY glipizide 5 mg tablet 10 mg PO BID Patient Comments: TAKE TWO TABLETS BY MOUTH TWICE A DAY omeprazole 40 mg capsule,delayed release(DR/EC) 40 mg PO DAILY Patient Comments: TAKE ONE CAPSULE BY MOUTH EVERY DAY pregabalin 50 mg capsule 50 mg PO TID Patient Comments: TAKE ONE CAPSULE BY MOUTH THREE TIMES A DAY metoprolol succinate 25 mg Tablet Extended Release 24 Hr 25 mg PO DAILY Qty: 30 0RF nystatin 100,000 unit/gram Powder 1 applic topical BID Qty: 0 0RF Discharge Instructions Instructions: Contusion in Adults (ED), Fall Prevention (ED) Additional Instructions: Ice 20 minutes on and 20 minutes off as needed for pain. Tylenol 650 mg every 4-6 hours as needed for discomfort. After cleansing any areas of skin breakdown please apply the barrier cream at home. Return to ED for any questions or concerns. Medical Decision Making Nursing clean pt up nicely and put barrier cream on the areas of skin breakdown. She is able to assist with movement in the bed although again is nonambulatory. Patient's partner at home helps assist her with ADLs. She was given Tylenol as needed for pain. Patient's x-rays of the femur and pelvis are negative and she will be discharged home. Medical Records Medical records reviewed: Yes I reviewed the patient's medical records. Imaging Data Radiologic Study: Imaging: X-Ray (Pelvis and left femur show NAD and NFS) HPI General Date/Time Provider Initiated Documentation: 12/26/22 00:43 . HPI Narrative: This 72-year-old morbidly obese patient presents with a chief complaint of left buttock pain after a fall at home. Patient is nonambulatory and has a slippery mattress cover. Reportedly she slipped off the bed and onto the floor. She fell on her left hand side which is where EMS found her. She was unable to get up on her own. The patient seemed okay but the insisted that she came in. Patient did not hit her head, had no LOC, and has no neck pain. 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 This is chronic and unchanged. She has no new weakness or numbness. Related Data Home Medications Medication Instructions Recorded Confirmed calcium carbonate 600 mg-vitamin 1 ea PO DAILY 05/10/13 11/18/22 D3 10 mcg (400 unit) tablet (Calcium 600 + D(3)) simvastatin 40 mg tablet (Zocor) 40 mg PO HS 05/10/13 11/18/22 cholecalciferol (vitamin D3) 50 4,000 unit PO DAILY 11/05/21 11/18/22 mcg (2,000 unit) tablet duloxetine 60 mg capsule,delayed 60 mg PO BID 11/05/21 11/18/22 release glipizide 5 mg tablet 10 mg PO BID 11/05/21 11/18/22 omeprazole 40 mg capsule,delayed 40 mg PO DAILY 11/05/21 11/18/22 release pregabalin 50 mg capsule 50 mg PO TID 11/05/21 11/18/22 metoprolol succinate 25 mg 25 mg PO DAILY #30 tabs 11/09/21 11/18/22 tablet,extended release 24 hr magnesium oxide 400 mg PO BID #60 tabs 12/02/21 11/18/22 quetiapine 25 mg tablet 12.5 mg PO QPM #15 tabs 12/02/21 11/18/22 lisinopril 10 mg tablet 10 mg PO DAILY 03/16/22 11/18/22 tramadol 50 mg tablet 100 mg PO QHS 03/17/22 11/18/22 aspirin 81 mg chewable tablet 81 mg PO DAILY 03/24/22 11/18/22 insulin glargine 100 unit/mL (3 25 unit (0.25 mL) subcut BID #0 mL 04/03/22 11/18/22 mL) subcutaneous pen (Lantus Solostar U-100 Insulin) nystatin 100,000 unit/gram topical 1 applic topical BID #0 grams 09/06/22 11/18/22 powder Previous Rx's Medication Instructions Recorded metoprolol succinate 25 mg 25 mg PO DAILY #30 tabs 11/09/21 tablet,extended release 24 hr magnesium oxide 400 mg PO BID #60 tabs 12/02/21 quetiapine 25 mg tablet 12.5 mg PO QPM #15 tabs 12/02/21 insulin glargine 100 unit/mL (3 25 unit (0.25 mL) subcut BID #0 mL 04/03/22 mL) subcutaneous pen (Lantus Solostar U-100 Insulin) nystatin 100,000 unit/gram topical 1 applic topical BID #0 grams 09/06/22 powder Allergies Allergy/AdvReac Type Severity Reaction Status Date / Time epinephrine Allergy Severe chest Unverified 09/01/22 00:16 pain/heart attack Penicillins Allergy Intermediate rsh fever Unverified 09/01/22 00:16 banana [Banana] Allergy Unverified 09/01/22 00:16 NSAIDS (Non-Steroidal Allergy unkown Unverified 09/01/22 00:16 Anti-Inflamma Sulfa (Sulfonamide Allergy rash,fever Unverified 09/01/22 00:16 Antibiotics) Tetracyclines Allergy rash fever Unverified 09/01/22 00:16 sodium polystyrene sulfonate AdvReac Severe tachy/dyspn Unverified 09/01/22 00:16 [From Kayexalate] ea/rash Niacin Preparations AdvReac Intermediate flushing Unverified 09/01/22 00:16 General Stated Complaint: Fall/Non TraumaCriteria TASHA: 3 Review of Systems Narrative: Gen'l: No FC Skin: no abras, lac, bruises HEENT: No head trauma, blurring, double vision, ear d/c, nasal d/c or congestion, sore throat Neck: no pain Cor: no CP, palpitations Resp: no cough, SOB Abd: no belly pain, V,D Back: no pain Pelvis: no pain Extr: no pain or deformity, no edema Neuro: no numbness and weakness, no BATISTA PFSH All Active Problems Fall as cause of accidental injury at home as place of occurrence (Acute) Contusion of left lower extremity (Acute) Encounter for counseling regarding advance directives (Acute) Full code status (Acute) Deficit in activities of daily living (ADL) (Acute) Sedentary lifestyle (Acute) Need for home health care (Acute) Impaired instrumental activities of daily living (Acute) Yeast vaginitis (Acute) Pain (Acute) COPD (chronic obstructive pulmonary disease) (Chronic) Acute UTI (Acute) CHF (congestive heart failure) (Chronic) Fall (Acute) Anemia (Chronic) Mass of left ovary (Acute) Chronic kidney disease (Chronic) Essential hypertension (Chronic) Diabetes mellitus type 2 (Chronic) On Metformin Back pain (Acute) Morbid obesity (Chronic) Hyperlipidemia (Chronic) Depression (Chronic) Vitamin D deficiency (Chronic) History of colostomy (Chronic) Medical History Anemia (05/03/13) Hemoglobin 8.2. Anemia Depression Diabetes mellitus Diverticulitis Recurrent. S/p high risk hemicolectomy in the setting of sepsis and hypotension 03/22/2013. Complication of a stomal leak resulting in an abdominal abscess. Readmitted to [facility] 05/03/13 emergently with sepsis syndrome and had an abdominal abscess drained. Completed rehab at [facility] with discharge most recently on after extensive dressing care of the abdominal wound with a wound VAC. 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 Leukocytosis. Intermittently febrile. Fall Gastroesophageal reflux disease GERD (gastroesophageal reflux disease) Hepatitis C Recent negative viral count. History of breast cancer History of hepatitis C History of incisional hernia History of renal failure Migraine Morbid obesity Osteopenia Palliative care patient Vitamin D deficiency Surgical History Colectomy H/O mastectomy Hernia Repair, Incisional x2 S/P cholecystectomy Family History Mother No problems noted. Father No problems noted. 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 Exam Narrative Exam Narrative: Gen'l: A and Ox3 in NAD Skin: PWD, no rash or abras, lacs, bruises; some skin breakdown under fat lateral abd and groin, mild tiny ulcerations perineum with erythema HEENT: NC AT, no facial /scalp TTP, PERRL, EOMI, conj/TMs/OP nl, moist mm Neck: supple and spine NTP with FROM w/o pain COR: RRR, no MRG, chest/clavicles NT compression Resp: CTA B with good air movement Abd: soft, NT, ND, NABS Pelvis: NT compression, mild buttock TTP on left Back: AT and NTP CVA, scapula, spine Extr: AT and NTP (except mild pain L thigh) with FROM, KNAPP, no pedal edema or calf TTP Neuro: A and Ox3, CR NN 2-12 intact, str 5/5 all mm grps, sensation intact, FNF and Romberg WNL, gait nl Course Vital Signs Vital signs: Vital Signs Temperature 35.1 C L 12/26/22 00:29 Pulse 106 H 12/26/22 00:29 Respiratory Rate 20 12/26/22 00:29 Blood Pressure 178/82 H 12/26/22 00:29 Pulse Oximetry 92 12/26/22 00:29 Temperature 35.1 C L 12/26/22 00:29 Temperature Source Temporal Artery Scan 12/26/22 00:29 Pulse 106 H 12/26/22 00:29 Respiratory Rate 20 12/26/22 00:29 Respiratory Effort Normal, Non-Labored 12/26/22 00:34 Blood Pressure 178/82 H 12/26/22 00:29 Blood Pressure Position Sitting 12/26/22 00:29 Pulse Oximetry 92 12/26/22 00:29 Oxygen Delivery Method Room Air 12/26/22 00:29 Oxygen Flow Rate 0 12/26/22 00:29 Pain Level 9 12/26/22 00:29
--- NOTE | 2022-12-26 02:19 | NUR.NOTE ---
0120-Pt able to assist with turning in bed. Brief was changed, pt cleaned and pierre cream applied to areas of skin breakdown (noted in assessment) per MD ords.
[2022-12-26 02:25] VITALS: PULSE 102; RESP 20; O2SAT 96
--- NOTE | 2022-12-26 02:38 | DI.VRAD_ITS ---
PROCEDURE INFORMATION: Exam: XR Pelvis Exam date and time: 12/26/2022 12:59 AM Age: 72 years old Clinical indication: Pain and injury or trauma; Blunt trauma (contusions or hematomas); Left; Hip and pelvic region; Pelvic pain; Injury details: Buttock pain S/P fall from bed TECHNIQUE: Imaging protocol: Radiologic exam of the pelvis. Views: 1 or 2 view. COMPARISON: CT CHEST/ABD/PEL WO 09/25/2022 7:56 PM FINDINGS: Bones/joints: Unremarkable. No acute fracture. Soft tissues: Unremarkable. IMPRESSION: No acute findings. Dictated and Authenticated by: Tyrone Brewster MD. Ordering:LORETTA Olivarez MD
--- NOTE | 2022-12-26 02:39 | DI.VRAD_ITS ---
PROCEDURE INFORMATION: Exam: XR Left Femur Exam date and time: 12/26/2022 1:00 AM Age: 72 years old Clinical indication: Injury or trauma; Fall; Blunt trauma; Thigh or upper leg; Left; Additional info: Buttock pain S/P fall from bed TECHNIQUE: Imaging protocol: Radiologic exam of the left femur. Views: 2 views. COMPARISON: CR XR HIP LT COMPLETE AP PELVIS 12/26/2022 12:59 AM FINDINGS: Bones/joints: Unremarkable. No acute fracture. Soft tissues: Unremarkable. IMPRESSION: No acute findings. Dictated and Authenticated by: Tyrone Brewster MD. Ordering:LORETTA Olivarez MD
== END 2022-12-26 02:10 | disposition home or self-care (01) ==
LOC: ER 01:35
PROVIDERS: Emergency Provider Emergency Medicine; PCP Family Medicine
DX: S80.12XA Contusion of left lower leg, initial encounter (principal); W06.XXXA Fall from bed, initial encounter; E66.01 Morbid (severe) obesity due to excess calories; E11.40 Type 2 diabetes mellitus with diabetic neuropathy, unspecified
CPT/HCPCS: 73552; 99284; 72170; 99283

== ENCOUNTER 2022-12-28 22:13 | Emergency (ER) | payer MEDICARE, MEDICAID, SELFPAY ==
[2022-12-28] VITALS (52 sets, daily range): BP systolic 155; BP diastolic 125; PULSE 113; RESP 10–24; TEMP 36.6; O2SAT 94–97
--- NOTE | 2022-12-28 22:33 | W.ED.GENAD ---
Discharge Plan Discharge Details Chief Complaint: GenMedical Primary Care Provider: Mary Ann Luo ED Provider: Raghu Childs Home Meds and New Rx's Prescriptions: No Action simvastatin [Zocor] 40 MG tablet 40 mg PO HS calcium carbonate-vitamin D3 [Calcium 600 + D(3)] 1 EACH tablet 1 ea PO DAILY quetiapine 25 mg Tablet 12.5 mg PO QPM Qty: 15 0RF magnesium oxide 400 mg magnesium Tablet 400 mg PO BID Qty: 60 0RF lisinopril 10 mg tablet 10 mg PO DAILY tramadol 50 mg Tablet 100 mg PO QHS aspirin 81 mg Tablet,Chewable 81 mg PO DAILY insulin glargine [Lantus Solostar U-100 Insulin] 100 unit/mL (3 mL) insulin pen 25 unit SUBCUT BID Qty: 0 0RF Patient Comments: INJECT 56 UNITS SUBCUTANEOUSLY TWO TIMES A DAY- Once in the am and once in the pm cholecalciferol (vitamin D3) 50 mcg (2,000 unit) tablet 4,000 unit PO DAILY Patient Comments: TAKE TWO TABLETS BY MOUTH EVERY DAY duloxetine 60 mg capsule,delayed release(DR/EC) 60 mg PO BID Patient Comments: TAKE ONE CAPSULE BY MOUTH TWICE A DAY glipizide 5 mg tablet 10 mg PO BID Patient Comments: TAKE TWO TABLETS BY MOUTH TWICE A DAY omeprazole 40 mg capsule,delayed release(DR/EC) 40 mg PO DAILY Patient Comments: TAKE ONE CAPSULE BY MOUTH EVERY DAY pregabalin 50 mg capsule 50 mg PO TID Patient Comments: TAKE ONE CAPSULE BY MOUTH THREE TIMES A DAY metoprolol succinate 25 mg Tablet Extended Release 24 Hr 25 mg PO DAILY Qty: 30 0RF nystatin 100,000 unit/gram Powder 1 applic topical BID Qty: 0 0RF HPI General Date/Time Provider Initiated Documentation: 12/28/22 22:24. HPI Narrative: After she patient presents to the emergency department after she states that she was having back pain and slid out of her bed landing on her back exacerbating the pain in her lower back which she reports now is a 4/10 pain. Denies any lower extremity weakness or numbness. Patient is nonambulatory and she uses her electric chair to ambulate. She was here 3 days ago for the same reason. Also is reporting urinary frequency and urgency which is the reason she was trying to get out of bed and fell. Denies any fever denies any chills Related Data Home Medications Medication Instructions Recorded Confirmed calcium carbonate 600 mg-vitamin 1 ea PO DAILY 05/10/13 12/28/22 D3 10 mcg (400 unit) tablet (Calcium 600 + D(3)) simvastatin 40 mg tablet (Zocor) 40 mg PO HS 05/10/13 12/28/22 cholecalciferol (vitamin D3) 50 4,000 unit PO DAILY 11/05/21 12/28/22 mcg (2,000 unit) tablet duloxetine 60 mg capsule,delayed 60 mg PO BID 11/05/21 12/28/22 release glipizide 5 mg tablet 10 mg PO BID 11/05/21 12/28/22 omeprazole 40 mg capsule,delayed 40 mg PO DAILY 11/05/21 12/28/22 release pregabalin 50 mg capsule 50 mg PO TID 11/05/21 12/28/22 metoprolol succinate 25 mg 25 mg PO DAILY #30 tabs 11/09/21 12/28/22 tablet,extended release 24 hr magnesium oxide 400 mg PO BID #60 tabs 12/02/21 12/28/22 quetiapine 25 mg tablet 12.5 mg PO QPM #15 tabs 12/02/21 12/28/22 lisinopril 10 mg tablet 10 mg PO DAILY 03/16/22 12/28/22 tramadol 50 mg tablet 100 mg PO QHS 03/17/22 12/28/22 aspirin 81 mg chewable tablet 81 mg PO DAILY 03/24/22 12/28/22 insulin glargine 100 unit/mL (3 25 unit (0.25 mL) subcut BID #0 mL 04/03/22 12/28/22 mL) subcutaneous pen (Lantus Solostar U-100 Insulin) nystatin 100,000 unit/gram topical 1 applic topical BID #0 grams 09/06/22 12/28/22 powder Previous Rx's Medication Instructions Recorded metoprolol succinate 25 mg 25 mg PO DAILY #30 tabs 11/09/21 tablet,extended release 24 hr magnesium oxide 400 mg PO BID #60 tabs 12/02/21 quetiapine 25 mg tablet 12.5 mg PO QPM #15 tabs 12/02/21 insulin glargine 100 unit/mL (3 25 unit (0.25 mL) subcut BID #0 mL 04/03/22 mL) subcutaneous pen (Lantus Solostar U-100 Insulin) nystatin 100,000 unit/gram topical 1 applic topical BID #0 grams 09/06/22 powder Allergies Allergy/AdvReac Type Severity Reaction Status Date / Time epinephrine Allergy Severe chest Unverified 12/28/22 22:12 pain/heart attack Penicillins Allergy Intermediate rsh fever Unverified 12/28/22 22:12 banana [Banana] Allergy Unverified 12/28/22 22:12 NSAIDS (Non-Steroidal Allergy unkown Unverified 12/28/22 22:12 Anti-Inflamma Sulfa (Sulfonamide Allergy rash,fever Unverified 12/28/22 22:12 Antibiotics) Tetracyclines Allergy rash fever Unverified 12/28/22 22:12 sodium polystyrene sulfonate AdvReac Severe tachy/dyspn Unverified 12/28/22 22:12 [From Kayexalate] ea/rash Niacin Preparations AdvReac Intermediate flushing Unverified 12/28/22 22:12 General Stated Complaint: GenMedical TASHA: 3 Review of Systems All systems reviewed & are unremarkable except as noted in HPI and below Constitutional Constitutional: Reports as per HPI Eyes Eyes: Reports as per HPI and Reports system reviewed and no additional complaints, except as documented ENT Ears, Nose, Mouth, and Throat: Reports system reviewed and no additional complaints, except as documented Cardiovascular Cardiovascular: Reports as per HPI and Reports system reviewed and no additional complaints, except as documented Respiratory Respiratory: Reports as per HPI and Reports system reviewed and no additional complaints, except as documented Genitourinary Genitourinary: Reports post void dribbling, Reports nocturia and Reports dysuria Musculoskeletal Musculoskeletal: Reports system reviewed and no additional complaints, except as documented Neurologic Neurologic: Reports system reviewed and no additional complaints, except as documented Psychiatric Psychiatric: Reports system reviewed and no additional complaints, except as documented Endocrine Endocrine: Reports system reviewed and no additional complaints, except as documented PFSH All Active Problems Fall as cause of accidental injury at home as place of occurrence (Acute) Contusion of left lower extremity (Acute) Encounter for counseling regarding advance directives (Acute) Full code status (Acute) Deficit in activities of daily living (ADL) (Acute) Sedentary lifestyle (Acute) Need for home health care (Acute) Impaired instrumental activities of daily living (Acute) Yeast vaginitis (Acute) Pain (Acute) COPD (chronic obstructive pulmonary disease) (Chronic) Acute UTI (Acute) CHF (congestive heart failure) (Chronic) Fall (Acute) Anemia (Chronic) Mass of left ovary (Acute) Chronic kidney disease (Chronic) Essential hypertension (Chronic) Diabetes mellitus type 2 (Chronic) On Metformin Back pain (Acute) Morbid obesity (Chronic) Hyperlipidemia (Chronic) Depression (Chronic) Vitamin D deficiency (Chronic) History of colostomy (Chronic) Medical History Anemia (05/03/13) Hemoglobin 8.2. Anemia Depression Diabetes mellitus Diverticulitis Recurrent. S/p high risk hemicolectomy in the setting of sepsis and hypotension 03/22/2013. Complication of a stomal leak resulting in an abdominal abscess. Read[facility] [place] [facility] 05/03[place] emergently with sepsis syndrome and had an abdominal abscess drained. Completed rehab at [facility] with discharge most recently on after extensive dressing care of the abdominal wound with a wound VAC. 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 Leukocytosis. Intermittently febrile. Fall Gastroesophageal reflux disease GERD (gastroesophageal reflux disease) Hepatitis C Recent negative viral count. History of breast cancer History of hepatitis C History of incisional hernia History of renal failure Migraine Morbid obesity Osteopenia Palliative care patient Vitamin D deficiency Surgical History Colectomy H/O mastectomy Hernia Repair, Incisional x2 S/P cholecystectomy Family History Mother No problems noted. Father No problems noted. 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 Exam Const General: cooperative, healthy appearing, comfortable and no acute distress [facility] Head: normal to inspection, no palpable skull fracture, normocephalic and atraumatic Eyes General: appearance normal, both eyes and all related structures Visual Umanzor: normal visual umanzor by confrontation Alignment and Position: alignment normal Pupils: PERRL EOM: EOM intact bilaterally Neck Neck: normal visual inspection, full ROM and no lymphadenopathy Chest Chest: normal inspection of the chest and normal palpation of entire chest wall Resp Effort & Inspection: normal respiratory effort and able to speak in complete sentences Auscultation: clear to auscultation bilaterally Cardio Jugular venous pressure: no JVD Palpation: normal PMI Rate: regular rate Rhythm: regular rhythm GI Inspection: normal to inspection Back/Spine/Pelvis Back: no CVA tenderness Thoracic/Lumbar Spine: lumbar spinal tenderness Skin General skin exam: no rashes or lesions noted Neuro General: patient alert, patient awake and patient oriented x3 Cranial Nerves: CN's II-XI intact bilaterally Extrem General: normal to inspection, full ROM, capillary refill normal and no pedal edema Course Vital Signs Vital signs: Vital Signs Temperature 36.6 C 12/28/22 22:12 Pulse 113 H 12/28/22 22:12 Respiratory Rate 24 12/28/22 22:12 Blood Pressure 155/125 H 12/28/22 22:12 Pulse Oximetry 96 12/28/22 22:12 Temperature 36.6 C 12/28/22 22:12 Temperature Source Oral 12/28/22 22:12 Pulse 113 H 12/28/22 22:12 Respiratory Rate 22 12/28/22 22:20 Respiratory Effort Normal, Non-Labored 12/28/22 22:20 Respiratory Depth Normal 12/28/22 22:20 Respiratory Pattern Normal 12/28/22 22:20 Blood Pressure 155/125 H 12/28/22 22:12 Blood Pressure Position Supine 12/28/22 22:12 Pulse Oximetry 96 12/28/22 22:12 Oxygen Delivery Method Room Air 12/28/22 22:12 Oxygen Flow Rate 0 12/28/22 22:12 Pain Level 6 12/28/22 22:12 Comment 'ABD MOSTLY' 12/28/22 22:12
--- NOTE | 2022-12-28 22:45 | RT.EKG_ITS ---
APPROVED REPORT Exam: Resting ECG Reason for Exam: fall and pain Patient Location: E HR:105 bpm ECG Measurements Heart Rate 105 AXIS OR 165 P 75 QRSd 78 QRS 61 QT 329 T 46 QTc 435 Conclusion Sinus tachycardia...rate> 99
[2022-12-28 22:52] LABS: Bilirubin Negative (Negative); Blood Trace-intact (Negative); Clarity Sl Cloudy (Clear); Glucose Negative (Negative); Ketones Trace mg/dL (Negative); Leukocyte Esterase Large (Negative); Nitrite Positive (Negative); Urobilinogen 0.2 mg/dL (Up to 0.2); pH 5.5 (5-8)
[2022-12-28 22:57] LABS: Abs Immature Grans 0.07 10^3/uL (0.0-0.06); Absolute Basophil Count 0.05 10^3/uL (0.0-0.2); Absolute Eosinophil Count 0.19 10^3/uL (0.0-0.7); Absolute Lymphocyte Count 1.15 10^3/uL (1.2-3.4); Absolute Monocyte Count 0.45 10^3/uL (0.1-0.8); Absolute Neutrophil Count 7.01 10^3/uL (1.2-6.7); Basophils % 0.6; Eosinophils % 2.1; HCT 42.3 % (36.0-46.0); HGB 13.1 g/dL (11.2-15.7); Immature Grans % 0.8; Lymphocytes % 12.9; MCH 27.3 pg (27.0-33.0); MCV 88 fL (80-95); MPV 9.6 fL (8.0-11.0); Neutrophils % 78.6; Platelet Count 166 10^3/uL (130-400); RBC 4.79 10^6/uL (3.93-5.22); RDW 13.5 % (11.7-14.6); RDW-SD 43.8 fL; WBC 8.92 10^3/uL (4.4-10.8)
[2022-12-28] MEDS: Normal Saline 1,000 ML 1000 ML IV (22:59)
--- NOTE | 2022-12-28 23:00 | DI.CT_ITS ---
Exam(s) CT THORACIC LUMBAR SPINE WO EXAM: CT THORACIC LUMBAR SPINE WO CLINICAL HISTORY: s/p fall, midline tender, r/o fx. TECHNIQUE: Imaging Protocol: Axial computed tomography images with coronal and sagittal reformatted images were created and reviewed. COMPARISON: CT CT LUMBAR SPINE RECONS from 11/23/[address] CHEST/ABD/PEL WO from 09/25/2022 FINDINGS: Bones: No fractures or dislocations are seen. The alignment of the spine is normal including the cerv icothoracic junction and the thoracolumbar junction. Soft tissues: The soft tissues are unremarkable. No large disk herniations are identified. There is a gain seen a cyst in the left adnexa which is partially imaged today and measures at least 8.3 cm in t ransverse diameter. This was present on the CT scan of the abdomen and pelvis from 09/25/2022. IMPRESSION: No acute fracture or subluxation in the thoracic or lumbar spine. RADIATION DOSE DELIVERED: 1,839.4mGy.cm Total DLP DATA REPOSITORY: All CT scans at this facility are submitted to the National Radiology Data Registry (NRDR) Dose Index Registry (DIR) with the [employer] ([employer]). RADIATION OPTIMIZATION: All CT scans at this facility use at least one of these dose optimization te chniques: automated exposure control; mA and/or kV adjustment per patient size (includes targeted exa ms where dose is matched to clinical indication); or iterative reconstruction.
[2022-12-28 23:02] LABS: Bacteria Many HPF (Negative); C & S Indicated? No/Sq. Contamination; Crystals Negative HPF (Negative); Epithelial Cells Many HPF (Negative); Mucus Negative (Negative); WBC >50 HPF (0-5)
[2022-12-28 23:12] LABS: ALT 19 U/L (14-59); AST 24 U/L (15-37); Albumin 3.1 g/dL (3.4-5.0); Alkaline Phosphatase 108 U/L (46-116); Anion Gap 5.9 mmol/L (3-11); BUN 23 mg/dL (7-18); Bilirubin, Total 0.4 mg/dL (0.2-1.0); CO2 32.1 mmol/L (21.0-32.0); CREATININE 1.4 mg/dL (0.55-1.02); Calcium 9.9 mg/dL (8.5-10.1); Chloride 100 mmol/L (98-107); Estimated GFR 40.22 (mL/min/1.73m2); Glucose 283 mg/dL (74-106); Magnesium 0.9 mg/dL (1.8-2.4); Potassium 5.4 mmol/L (3.5-5.1); Sodium 138 mmol/L (136-145); Total Protein 7.8 g/dL (6.4-8.2)
[2022-12-28] MEDS: ACETAMINOPHEN 1,000 MG/100 ML BTL 400 MG IVPB (23:24)
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
[2022-12-29] MEDS: MAGNESIUM SULFATE 4 GM/100 ML BAG IVPB (00:04)
--- NOTE | 2022-12-29 00:59 | DI.VRAD_ITS ---
PROCEDURE INFORMATION: Exam: CT Thoracic Spine Without Contrast Exam date and time: 12/28/2022 11:43 PM Age: 72 years old Clinical indication: Pain in thoracic spine; Patient HX: S/P fall, midline tender, R/O FX TECHNIQUE: Imaging protocol: Computed tomography of the thoracic spine without contrast. Radiation optimization: All CT scans at this facility use at least one of these dose optimization techniques: automated exposure control; mA and/or kV adjustment per patient size (includes targeted exams where dose is matched to clinical indication); or iterative reconstruction. COMPARISON: CT THORACIC LUMBAR SPINE REC 11/04/2021 4:50 PM FINDINGS: Bones/joints: No acute fracture. Normal alignment. No significant disc bulge or herniation. No severe spinal canal stenosis. No significant neural foraminal narrowing. Soft tissues: Unremarkable. IMPRESSION: No evidence of acute fracture. PROCEDURE INFORMATION: Exam: CT Lumbar Spine Without Contrast Exam date and time: 12/28/2022 11:43 PM Age: 72 years old Clinical indication: Pain in thoracic spine; Patient HX: S/P fall, midline tender, R/O FX TECHNIQUE: Imaging protocol: Computed tomography of the lumbar spine without contrast. Radiation optimization: All CT scans at this facility use at least one of these dose optimization techniques: automated exposure control; mA and/or kV adjustment per patient size (includes targeted exams where dose is matched to clinical indication); or iterative reconstruction. COMPARISON: CT LUMBAR SPINE RECONS 11/23/2021 9:45 PM FINDINGS: Bones/joints: No acute fracture. Normal alignment. No significant disc bulge or herniation. No severe spinal canal stenosis. No significant neural foraminal narrowing. Reproductive: Partially visualized cystic structures are noted within the adnexa bilaterally, as described on the CT report of 09/25/2022. Soft tissues: Unremarkable. IMPRESSION: No visualized acute fracture. Dictated and Authenticated by: Chalo Givens MD. Ordering:AVIS Mendenhall MD
[2022-12-29] MEDS: Ciprofloxacin 500 MG TAB PO (01:44)
--- NOTE | 2022-12-29 01:52 | NUR.NOTE ---
Pt placed on care management referral for primary care
--- NOTE | 2022-12-29 04:33 | NUR.NOTE ---
Per report from EMS, pt has recently been utilizing them multiple times a day for lift assists and falling frequently. Prior to this visit was seen for exact same type of fall w/ general malaise 12/26. Pt general appearance unkempt w/ hygiene severely limited d/t mobility issues. Upon admission pt denies urinary incontinence, but when asked more in-depth about toileting, told this RN, ?by the time I realize I gotta go, I?m usually already going. I?m wet all the time.? Pt states her boyfriend assists her w/ day to day 'things' but that she generally does not leave bed. This was revealed after extensive questioning when trying to obtain transport home for pt, who had previously stated that she 'used' [facility] 'at least every week'. Upon further investigation by this RN, pt stated 'yeah, we use [facility]. My boyfriend uses it for errands and stuff like that because he can't drive'. With more exploration pt then admits that she cannot recall the last time she personally was transported in any vehicle other than an ambulance. Also initially told RN that she gets around using a motorized wheelchair, but then later made statements that she doesn?t leave her bed at all. This RN finds that pt requires extensive clarification on topics when providing education or determining pt needs/abilities etc. MD Flores updated and aware.
[2022-12-29 06:26] VITALS: BP 138/74; PULSE 78; RESP 19; TEMP 36.6; O2SAT 96
[2022-12-29 08:03] VITALS: BP 151/71; PULSE 100; RESP 18; TEMP 36.8; O2SAT 92
--- NOTE | 2022-12-29 10:38 | W.ED.FU ---
Date of service: 12/29/22 Time of Service: 10:38 Follow Up Plan: Call from pharmacy noting patient had prior history listed of allergy to Levaquin based on [facility] report from a year ago. We do not have history of fluoroquinolone allergy here but do have allergies listed to penicillin, sulfa and tetracycline. I reviewed recent urine culture from September that was resistant to all generations of cephalosporins as well as nitrofurantoin, sensitive to Cipro. Patient did receive ciprofloxacin dose here in the emergency department today and tolerated well without reaction. Plan to continue this given other allergies and prior sensitivities. Pharmacist will aids counselor patient to look out for any adverse reaction. I will contact the patient's primary care physician and alert them to the situation.
--- NOTE | 2022-12-29 12:12 | W.ED.FU ---
Date of service: 12/29/22 Time of Service: 12:12 Follow Up Plan: I obtained outside hospital records from [facility] and noted history of angioedema with Levaquin. I spoke with pharmacist here at [facility] who recommends fosfomycin given multiple allergies and urine culture resistance. I called [place] pharmacy again and recommended switch antibiotic. I called PCP office and left message requesting callback. I contacted the patient and discussed change in treatment plan. Patient notes she has had no swelling of her tongue or mouth. She notes she is feeling better. She understands antibiotic will be changed.
== END 2022-12-29 08:13 | disposition home or self-care (01) ==
PROVIDERS: Emergency Medicine Emergency Medical Services; Emergency Provider Physician Assistant; PCP Family Medicine
DX: S30.0XXA Contusion of lower back and pelvis, initial encounter (principal); W06.XXXA Fall from bed, initial encounter; E83.42 Hypomagnesemia; N39.0 Urinary tract infection, site not specified
CPT/HCPCS: 36415; 80053; 93005; 96365; 96366; 96367; 99284; 72128; 72131; 81003; 81015; 83735; 85025; 93010; J0131; J3475

== ENCOUNTER 2023-01-04 09:00 | Inpatient (IN) | payer MEDICARE, MEDICAID, SELFPAY ==
[2023-01-04] VITALS (9 sets, daily range): BP systolic 133–180; BP diastolic 67–97; PULSE 91–122; RESP 18–24; TEMP 36.5–37.5; O2SAT 96–99
--- NOTE | 2023-01-04 08:45 | DI.CT_ITS ---
Exam(s) CT HEAD - STROKE PROTOCOL EXAM: CT HEAD - STROKE PROTOCOL CLINICAL HISTORY: Altered mental status. TECHNIQUE: Imaging Protocol: Axial computed tomography images with coronal and sagittal reformatted images were created and reviewed COMPARISON: CT CT HEAD CERVICAL SPINE WO from 09/25/2022 FINDINGS: Images degraded by motion artifact. There are no skull fractures. There is no fluid in the visualized paranasal sinuses. There is no evidence of intracranial hemorrhage, mass effect, or shift of midline structures. There are no extra-axial fluid collections. The ventricles are not enlarged or shifted and there is no blo od within the ventricular system nor within the basal cisterns. There is possible very subtle hypodensity in the left occipital lobe region. This may be related to motion artifact. IMPRESSION: Images degraded by motion artifact but there is subtle hypodensity in the left occipital lobe, possib ly indicating infarct. Recommend follow-up MRI. Called to ER provider.. RADIATION DOSE DELIVERED: 981.45mGy.cm Total DLP DATA REPOSITORY: All CT scans at this facility are submitted to the National Radiology Data Registry (NRDR) Dose Index Registry (DIR) with the [employer] ([employer]). RADIATION OPTIMIZATION: All CT scans at this facility use at least one of these dose optimization te chniques: automated exposure control; mA and/or kV adjustment per patient size (includes targeted exa ms where dose is matched to clinical indication); or iterative reconstruction.
--- NOTE | 2023-01-04 08:45 | RT.EKG_ITS ---
APPROVED REPORT Exam: Resting ECG Reason for Exam: [facility] Patient Location: E HR:116 bpm ECG Measurements Heart Rate 116 AXIS NJ 149 P 79 QRSd 75 QRS 77 QT 306 T 61 QTc 426 Conclusion Sinus tachycardia...rate> 99
--- NOTE | 2023-01-04 09:02 | W.ED.GENAD ---
Discharge Plan Disposition Patient Disposition: Admit to [facility] Condition: Serious Discharge Details Clinical Impression: Acute CVA (cerebrovascular accident) Admit Date/Time: 01/04/23 11:02 Admit Provider: Michael Iqbal Attending Provider: Michael Iqbal Primary Care Provider: Mary Ann Luo ED Provider: Liliam Mckenna Medical Decision Making 72-year-old female presents to the ER via EMS with chief complaint of altered mental status. Initially on scene blood pressure 63/47 and patient is febrile at 101, upon arrival blood pressure is now hypertensive. Patient is awake, moans to verbal stimulation. She does have right-sided deficits noted. She began vomiting in route. Unknown last well. reports that yesterday she was complaining of a headache. Patient is a full code, she does have a past medical history of obesity, COPD, CHF, chronic kidney disease, hypertension type 2 diabetes, hyperlipidemia and hepatitis C, history of mastectomy for breast cancer, depression. She is wheelchair-bound. BGL prior to arrival was 192. Patient went to CT upon initial presentation. Stroke alert called. Initial presentation GCS is approximately 10. 09 15: Spoke with radiologist to reports that there is some movement artifact on the CT scan there is a hypodense area concerning for nonhemorrhagic stroke in the left parietal lobe. He does recommend MRI if suspicious. MRI Brain w/o ordered, patient has been incontinent of urine and is wet on arrival. She does have a colostomy noted to right lower quadrant which is full of soft brown stool. EKG was reviewed by Dr. Childs ER attending, old EKG available for review. Sinus tachycardia no STEMI. CBC shows 16.33 white blood cell count, absolute neutrophils 15.14 lactate 1.7 1013: Troponin 61 Magnesium is 0.92 g magnesium IV ordered, normal saline 250 cc an hour ordered, proBNP is elevated at 2004 and 75, urinalysis surprisingly does not show urinary tract infection no leukocytes no nitrites. Sodium 134 potassium 5.6 creatinine 1.2 GFR 48.39 UDS is negative, ethyl alcohol less than 3.0. 1044: Hospitalist paged at this time we are awaiting MRI. Chest x-ray ordered. 1055: Spoke with Dr. Bonner current agrees to accept patient for admission. 1225: Spoke with Son -in-law and Daughter Lindsey who report Lindsey is the POA. They state the last know well was 2 days ago, they report increased weakness over the last 2 days. Lindsey phone # [phone]. They are concerned about patients ability to care for herself at home. Patient transported up to room by staff submarine warfare officer. Medical Records Medical records reviewed: Yes I reviewed the patient's medical records. Imaging Data Radiologic Study: Imaging: CT Scan Radiologist's impression: FINDINGS: Images degraded by motion artifact. There are no skull fractures. There is no fluid in the visualized paranasal sinuses. There is no evidence of intracranial hemorrhage, mass effect, or shift of midline structures. There are no extra-axial fluid collections. The ventricles are not enlarged or shifted and there is no blood within the ventricular system nor within the basal cisterns. There is possible very subtle hypodensity in the left occipital lobe region. This may be related to motion artifact. IMPRESSION: Images degraded by motion artifact but there is subtle hypodensity in the left occipital lobe, possibly indicating infarct. Recommend follow-up MRI. Called to ER provider.. HPI General Mode of arrival: EMS. Date/Time Provider Initiated Documentation: 01/04/23 09:17. Limitations to Documentation: altered mental status. Information obtained by: EMS and old records reviewed. HPI Narrative: 72-year-old female presents to the ER via EMS with chief complaint of altered mental status. Initially on scene blood pressure 63/47 and patient is febrile at 101, upon arrival blood pressure is now hypertensive. Patient is awake, moans to verbal stimulation. She does have right-sided deficits noted. She began vomiting in route. Unknown last well. reports that yesterday she was complaining of a headache. Patient is a full code, she does have a past medical history of obesity, COPD, CHF, chronic kidney disease, hypertension type 2 diabetes, hyperlipidemia and hepatitis C, history of mastectomy for breast cancer, depression. She is wheelchair-bound. BGL prior to arrival was 192. Patient went to CT upon initial presentation. Stroke alert called. Related Data Home Medications Medication Instructions Recorded Confirmed calcium carbonate 600 mg-vitamin 1 ea PO DAILY 05/10/13 12/28/22 D3 10 mcg (400 unit) tablet (Calcium 600 + D(3)) simvastatin 40 mg tablet (Zocor) 40 mg PO HS 05/10/13 12/28/22 cholecalciferol (vitamin D3) 50 4,000 unit PO DAILY 11/05/21 12/28/22 mcg (2,000 unit) tablet duloxetine 60 mg capsule,delayed 60 mg PO BID 11/05/21 12/28/22 release glipizide 5 mg tablet 10 mg PO BID 11/05/21 12/28/22 omeprazole 40 mg capsule,delayed 40 mg PO DAILY 11/05/21 12/28/22 release pregabalin 50 mg capsule 50 mg PO TID 11/05/21 12/28/22 metoprolol succinate 25 mg 25 mg PO DAILY #30 tabs 11/09/21 12/28/22 tablet,extended release 24 hr magnesium oxide 400 mg PO BID #60 tabs 12/02/21 12/28/22 quetiapine 25 mg tablet 12.5 mg PO QPM #15 tabs 12/02/21 12/28/22 lisinopril 10 mg tablet 10 mg PO DAILY 03/16/22 12/28/22 tramadol 50 mg tablet 100 mg PO QHS 03/17/22 12/28/22 aspirin 81 mg chewable tablet 81 mg PO DAILY 03/24/22 12/28/22 insulin glargine 100 unit/mL (3 25 unit (0.25 mL) subcut BID #0 mL 04/03/22 12/28/22 mL) subcutaneous pen (Lantus Solostar U-100 Insulin) nystatin 100,000 unit/gram topical 1 applic topical BID #0 grams 09/06/22 12/28/22 powder ciprofloxacin HCl 500 mg tablet 500 mg PO BID 7 days #14 tabs 12/29/22 Previous Rx's Medication Instructions Recorded metoprolol succinate 25 mg 25 mg PO DAILY #30 tabs 11/09/21 tablet,extended release 24 hr magnesium oxide 400 mg PO BID #60 tabs 12/02/21 quetiapine 25 mg tablet 12.5 mg PO QPM #15 tabs 12/02/21 insulin glargine 100 unit/mL (3 25 unit (0.25 mL) subcut BID #0 mL 04/03/22 mL) subcutaneous pen (Lantus Solostar U-100 Insulin) nystatin 100,000 unit/gram topical 1 applic topical BID #0 grams 09/06/22 powder ciprofloxacin HCl 500 mg tablet 500 mg PO BID 7 days #14 tabs 12/29/22 Allergies Allergy/AdvReac Type Severity Reaction Status Date / Time epinephrine Allergy Severe chest Unverified 12/28/22 22:12 pain/heart attack Penicillins Allergy Intermediate rsh fever Unverified 12/28/22 22:12 banana [Banana] Allergy Unverified 12/28/22 22:12 NSAIDS (Non-Steroidal Allergy unkown Unverified 12/28/22 22:12 Anti-Inflamma Sulfa (Sulfonamide Allergy rash,fever Unverified 12/28/22 22:12 Antibiotics) Tetracyclines Allergy rash fever Unverified 12/28/22 22:12 sodium polystyrene sulfonate AdvReac Severe tachy/dyspn Unverified 12/28/22 22:12 [From Kayexalate] ea/rash Niacin Preparations AdvReac Intermediate flushing Unverified 12/28/22 22:12 General TASHA: 2 Review of Systems Unobtainable due to mental status (History obtained from EMS) Constitutional Constitutional: Reports as per HPI, Reports headache(s) and Reports weakness ENT Ears, Nose, Mouth, and Throat: Reports headache(s) Gastrointestinal Gastrointestinal: Reports vomiting Genitourinary Genitourinary: Reports urinary incontinence Neurologic Neurologic: Reports as per HPI, Reports abnormal speech, Reports confusion, Reports headache(s) and Reports weakness Psychiatric Psychiatric: Reports confusion PFSH All Active Problems Fall as cause of accidental injury at home as place of occurrence (Acute) Contusion of left lower extremity (Acute) Back contusion (Acute) Fall at home (Acute) Hypomagnesemia (Acute) UTI (urinary tract infection) (Acute) Acute CVA (cerebrovascular accident) (Acute) Encounter for counseling regarding advance directives (Acute) Full code status (Acute) Deficit in activities of daily living (ADL) (Acute) Sedentary lifestyle (Acute) Need for home health care (Acute) Impaired instrumental activities of daily living (Acute) Yeast vaginitis (Acute) Pain (Acute) COPD (chronic obstructive pulmonary disease) (Chronic) Acute UTI (Acute) CHF (congestive heart failure) (Chronic) Fall (Acute) Anemia (Chronic) Mass of left ovary (Acute) Chronic kidney disease (Chronic) Essential hypertension (Chronic) Diabetes mellitus type 2 (Chronic) On Metformin Back pain (Acute) Morbid obesity (Chronic) Hyperlipidemia (Chronic) Depression (Chronic) Vitamin D deficiency (Chronic) History of colostomy (Chronic) Medical History Anemia (05/03/13) Hemoglobin 8.2. Anemia Depression Diabetes mellitus Diverticulitis Recurrent. S/p high risk hemicolectomy in the setting of sepsis and hypotension 03/22/2013. Complication of a stomal leak resulting in an abdominal abscess. Readmitted to [facility] 05/03/13 emergently with sepsis syndrome and had an abdominal abscess drained. Completed rehab at [facility] with discharge most recently on after extensive dressing care of the abdominal wound with a wound VAC. 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 Leukocytosis. Intermittently febrile. Fall Gastroesophageal reflux disease GERD (gastroesophageal reflux disease) Hepatitis C Recent negative viral count. History of breast cancer History of hepatitis C History of incisional hernia History of renal failure Migraine Morbid obesity Osteopenia Palliative care patient Vitamin D deficiency Surgical History Colectomy H/O mastectomy Hernia Repair, Incisional x2 S/P cholecystectomy Family History Mother No problems noted. Father No problems noted. 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 Exam Narrative Exam Narrative: Constitutional: Awake. Appears stated age. Obese body habitus. GCS 10, Moaning, follows commands sporatically. AMS Head: Normocephalic, no trauma. Eyes: Pupils PERRL, Red reflex noted, EOM's intact. Eyelids symmetrical without lesions, discharge, or swelling. ENT: Bilateral TM's WNL, External ear normal to inspection, no mastoid TTP, swelling, or erythema, Nasal turbinates WNL, no nasal discharge. Normal dentition, Posterior pharynx WNL, no exudate. Chest: RRR, Normal S1, S2, distal pulses intact. Resp: Lungs clear to auscultation bilaterally, no wheezes, rales, or rhonchi. Abdomen: Soft, non-distended, Normoactive bowel sounds all 4 quads. Colostomy noted to RLQ. Loose brown stool noted in bag. No surrounding erythema or swelling. Musculoskeletal: Unable to assess gait, patient is wheelchair bound. Skin: No suspicious rashes or lesions. Capillary refill less than 2 sec. Neurologic: NIH approx 14, Slightly decreased movement to Right side. GCS 10, Altered mental status Hematologic/Lymphatic: No ecchymosis, no lymphadenopathy. Course Lab/Test Results Lab/Test Results: 01/04/23 08:55 Blood Blood Culture - Pending 01/04/23 08:55 Blood Blood Culture - Pending Critical Care Time Critical Care Time Critical Care Time: Yes Total Critical Care Time: 45 Attestation: I spent greater than 35 minutes addressing this patient's acute life threatening illness. This time was spent engaged in actions directly related to the patient's care. Failure to initiate these interventions would have likely resulted in clinically significant or life threatening deterioration in the patients condition. ED MDM Stroke Lab Data 01/04/23 09:40 01/04/23 09:40 Lab Results 01/04/23 01/04/23 01/04/23 Range/Units 09:40 09:40 09:40 WBC (4.4-10.8) 10^3/uL RBC (3.93-5.22) 10^6/uL Hgb (11.2-15.7) g/dL Hct (36.0-46.0) % MCV (80-95) fL MCH (27.0-33.0) pg MCHC (32.0-36.0) % RDW (11.7-14.6) % Plt Count (130-400) 10^3/uL MPV (8.0-11.0) fL Immature Gran % Neutrophils % Lymphocytes % Monocytes % Eosinophils % Basophils % Nucleated RBC % (0.0-0.3) % Absolute Neutrophils (1.2-6.7) 10^3/uL Absolute Lymphocytes (1.2-3.4) 10^3/uL Absolute Monocytes (0.1-0.8) 10^3/uL Absolute Eosinophils (0.0-0.7) 10^3/uL Absolute Basophils (0.0-0.2) 10^3/uL PT 10.1 (9.3-11.0) sec INR 1.0 (0.9-1.1) VBG Lactate (0.6-1.4) mmol/L Sodium 134 L (136-145) mmol/L Potassium 5.6 H (3.5-5.1) mmol/L Chloride 98 (98-107) mmol/L Carbon Dioxide 25.1 (21.0-32.0) mmol/L Anion Gap 10.9 (3-11) mmol/L BUN 11 (7-18) mg/dL Creatinine 1.2 H (0.55-1.02) mg/dL Est GFR (CKD-EPI 2020) 48.39 (mL/min/1.73m2) Glucose 237 H (74-106) mg/dL Calcium 9.5 (8.5-10.1) mg/dL Magnesium 0.9 L (1.8-2.4) mg/dL Total Bilirubin 0.6 (0.2-1.0) mg/dL AST 22 (15-37) U/L ALT 15 (14-59) U/L Alkaline Phosphatase 103 (46-116) U/L Troponin I 61 H (<or=60) ng/L NT-Pro-B Natriuret Pep 2475 H (<300) pg/mL Total Protein 7.9 (6.4-8.2) g/dL Albumin 3.6 (3.4-5.0) g/dL Urine Color (Yellow) Urine Clarity (Clear) Urine pH (5-8) Ur Specific Willis (1.005-1.025) Urine Protein (Negative) mg/dL Urine Ketones (Negative) mg/dL Urine Blood (Negative) Urine Nitrite (Negative) Urine Bilirubin (Negative) Urine Urobilinogen (Up to 0.2) mg/dL Ur Leukocyte Esterase (Negative) Urine RBC (0-2) HPF Urine WBC (0-5) HPF Ur Epithelial Cells (Negative) HPF Urine Crystals (Negative) HPF Urine Bacteria (Negative) HPF Urine Casts (Negative) LPF Urine Mucus (Negative) Ur Culture Indicated? Urine Glucose (Negative) mg/dL Urine Opiates Screen (Negative) Urine Methadone Screen (Negative) Ur Barbiturates Screen (Negative) Ur Tricyclics Screen (Negative) Ur Amphetamines Screen (Negative) U Benzodiazepines Scrn (Negative) Urine Cocaine Screen (Negative) Ur THC Screen (Negative) Ethyl Alcohol Cancelled < 3.0 01/04/23 01/04/23 01/04/23 Range/Units 09:40 09:40 09:40 WBC 16.33 H (4.4-10.8) 10^3/uL RBC 5.37 H (3.93-5.22) 10^6/uL Hgb 14.7 (11.2-15.7) g/dL Hct 46.7 H (36.0-46.0) % MCV 87 (80-95) fL MCH 27.4 (27.0-33.0) pg MCHC 31.5 L (32.0-36.0) % RDW 13.6 (11.7-14.6) % Plt Count 154 (130-400) 10^3/uL MPV 9.9 (8.0-11.0) fL Immature Gran % 0.6 Neutrophils % 92.7 Lymphocytes % 5.0 Monocytes % 1.2 Eosinophils % 0.1 Basophils % 0.4 Nucleated RBC % 0.0 (0.0-0.3) % Absolute Neutrophils 15.14 H (1.2-6.7) 10^3/uL Absolute Lymphocytes 0.82 L (1.2-3.4) 10^3/uL Absolute Monocytes 0.20 (0.1-0.8) 10^3/uL Absolute Eosinophils 0.02 (0.0-0.7) 10^3/uL Absolute Basophils 0.07 (0.0-0.2) 10^3/uL PT (9.3-11.0) sec INR (0.9-1.1) VBG Lactate 1.7 H (0.6-1.4) mmol/L Sodium (136-145) mmol/L Potassium (3.5-5.1) mmol/L Chloride (98-107) mmol/L Carbon Dioxide (21.0-32.0) mmol/L Anion Gap (3-11) mmol/L BUN (7-18) mg/dL Creatinine (0.55-1.02) mg/dL Est GFR (CKD-EPI 2020) (mL/min/1.73m2) Glucose (74-106) mg/dL Calcium (8.5-10.1) mg/dL Magnesium (1.8-2.4) mg/dL Total Bilirubin (0.2-1.0) mg/dL AST (15-37) U/L ALT (14-59) U/L Alkaline Phosphatase (46-116) U/L Troponin I (<or=60) ng/L NT-Pro-B Natriuret Pep Cancelled (<300) pg/mL Total Protein (6.4-8.2) g/dL Albumin (3.4-5.0) g/dL Urine Color (Yellow) Urine Clarity (Clear) Urine pH (5-8) Ur Specific Willis (1.005-1.025) Urine Protein (Negative) mg/dL Urine Ketones (Negative) mg/dL Urine Blood (Negative) Urine Nitrite (Negative) Urine Bilirubin (Negative) Urine Urobilinogen (Up to 0.2) mg/dL Ur Leukocyte Esterase (Negative) Urine RBC (0-2) HPF Urine WBC (0-5) HPF Ur Epithelial Cells (Negative) HPF Urine Crystals (Negative) HPF Urine Bacteria (Negative) HPF Urine Casts (Negative) LPF Urine Mucus (Negative) Ur Culture Indicated? Urine Glucose (Negative) mg/dL Urine Opiates Screen (Negative) Urine Methadone Screen (Negative) Ur Barbiturates Screen (Negative) Ur Tricyclics Screen (Negative) Ur Amphetamines Screen (Negative) U Benzodiazepines Scrn (Negative) Urine Cocaine Screen (Negative) Ur THC Screen (Negative) Ethyl Alcohol 01/04/23 01/04/23 Range/Units 10:05 10:05 WBC (4.4-10.8) 10^3/uL RBC (3.93-5.22) 10^6/uL Hgb (11.2-15.7) g/dL Hct (36.0-46.0) % MCV (80-95) fL MCH (27.0-33.0) pg MCHC (32.0-36.0) % RDW (11.7-14.6) % Plt Count (130-400) 10^3/uL MPV (8.0-11.0) fL Immature Gran % Neutrophils % Lymphocytes % Monocytes % Eosinophils % Basophils % Nucleated RBC % (0.0-0.3) % Absolute Neutrophils (1.2-6.7) 10^3/uL Absolute Lymphocytes (1.2-3.4) 10^3/uL Absolute Monocytes (0.1-0.8) 10^3/uL Absolute Eosinophils (0.0-0.7) 10^3/uL Absolute Basophils (0.0-0.2) 10^3/uL PT (9.3-11.0) sec INR (0.9-1.1) VBG Lactate (0.6-1.4) mmol/L Sodium (136-145) mmol/L Potassium (3.5-5.1) mmol/L Chloride (98-107) mmol/L Carbon Dioxide (21.0-32.0) mmol/L Anion Gap (3-11) mmol/L BUN (7-18) mg/dL Creatinine (0.55-1.02) mg/dL Est GFR (CKD-EPI 2020) (mL/min/1.73m2) Glucose (74-106) mg/dL Calcium (8.5-10.1) mg/dL Magnesium (1.8-2.4) mg/dL Total Bilirubin (0.2-1.0) mg/dL AST (15-37) U/L ALT (14-59) U/L Alkaline Phosphatase (46-116) U/L Troponin I (<or=60) ng/L NT-Pro-B Natriuret Pep (<300) pg/mL Total Protein (6.4-8.2) g/dL Albumin (3.4-5.0) g/dL Urine Color Yellow (Yellow) Urine Clarity Clear (Clear) Urine pH 5.5 (5-8) Ur Specific Willis >= 1.030 H (1.005-1.025) Urine Protein >=300 H (Negative) mg/dL Urine Ketones 40 H (Negative) mg/dL Urine Blood Moderate H (Negative) Urine Nitrite Negative (Negative) Urine Bilirubin Small H (Negative) Urine Urobilinogen 0.2 (Up to 0.2) mg/dL Ur Leukocyte Esterase Negative (Negative) Urine RBC 5-10 H (0-2) HPF Urine WBC 3-5 (0-5) HPF Ur Epithelial Cells Many (Negative) HPF Urine Crystals Negative (Negative) HPF Urine Bacteria Rare (Negative) HPF Urine Casts Negative (Negative) LPF Urine Mucus Negative (Negative) Ur Culture Indicated? No/Sq. Contamination Urine Glucose Negative (Negative) mg/dL Urine Opiates Screen Negative (Negative) Urine Methadone Screen Negative (Negative) Ur Barbiturates Screen Negative (Negative) Ur Tricyclics Screen Negative (Negative) Ur Amphetamines Screen Negative (Negative) U Benzodiazepines Scrn Negative (Negative) Urine Cocaine Screen Negative (Negative) Ur THC Screen Negative (Negative) Ethyl Alcohol EKG Data Rate: tachycardia Interpretation: no acute changes Core Measures Door to CT Read: 14 min NIH Stroke Scale 1a. Level of Consciousness: (3) responds reflex/autonom 1b. LOC Questions: (2) answers no questions correctly 1c. LOC Commands: (1) performs 1 task correctly 2. Best Gaze: (1) partial gaze palsy 3. Visual: (0) no visual loss 4. Facial Palsy: (0) normal symmetrical movement 5a. Motor Arm Left: (2) some gravity effort 5b. Motor Arm Right: (0) no drift 6a. Motor Leg Left: (4) no movement 6b. Motor Leg Right: (4) no movement 7. Limb Ataxia: (0) absent 8. Sensory: (0) normal 9. Best Language: (2) severe aphasia 10. Dysarthria: (1) mild/moderate dysarthria 11. Extinction/Inattention: (1) visual/tactile inattention Thrombolytic Incusion/Exlusion Thrombolytic Exclusion Criteria: Onset of Symptoms Unknown Thrombolytic Inclusion Criteria: NIH Stroke Scale Deficit, Negative CT Scan for ICH, Age 18 or Older and Glucose of 50-400mg/dl
--- NOTE | 2023-01-04 09:15 | DI.MRI_ITS ---
Exam(s) MR BRAIN WO EXAM: MR BRAIN WO CLINICAL HISTORY: AMS, Right sided deficit, Stroke alert TECHNIQUE: Multiplanar multisequence MRI of the brain was performed. COMPARISON: No exams were available for comparison FINDINGS: CEREBRAL PARENCHYMA: There is no evidence of intracranial hemorrhage, mass effect, or shift of midline structures. There are no extra-axial fluid collections. Ventricles are not enlarged or shifted. There is no significant focal signal abnormality in the cerebellar hemispheres. No evidence of cereb ellar tonsillar ectopia. There is some focal signal abnormality in the central and right side of the gladys as well as some bila teral periventricular signal abnormality consistent chronic small vessel disease. There is no eviden ce of restricted diffusion on DWI. PITUITARY GLAND: No mass nor parasellar abnormality. No obvious abnormality in the cavernous sinuses. FLOW VOIDS: Somewhat difficult due to motion artifact on the T2 sequence. However, expected flow voi ds are noted in the vertebral arteries and basilar artery as well as in the intra and supra cavernous ICAs and middle cerebral arteries. PARANASAL SINUSES: The visualized paranasal sinuses appear unremarkable. No obvious finding ORBITS: No obvious findings. IMPRESSION: Somewhat limited study due to motion artifact but no obvious acute infarct. No restricted diffusion. No evidence of intracranial hemorrhage. Some white matter disease, probably chronic. Called to ER provider. DATA REPOSITORY:
[2023-01-04 09:46] LABS: Abs Immature Grans 0.09 10^3/uL (0.0-0.06); Absolute Lymphocyte Count 0.82 10^3/uL (1.2-3.4); Basophils % 0.4; Eosinophils % 0.1; HCT 46.7 % (36.0-46.0); HGB 14.7 g/dL (11.2-15.7); Immature Grans % 0.6; Lactate 1.7 mmol/L (0.6-1.4); MCH 27.4 pg (27.0-33.0); MCHC 31.5 % (32.0-36.0); MCV 87 fL (80-95); MPV 9.9 fL (8.0-11.0); Monocytes % 1.2; Neutrophils % 92.7; Platelet Count 154 10^3/uL (130-400); RBC 5.37 10^6/uL (3.93-5.22); RDW 13.6 % (11.7-14.6); RDW-SD 43.5 fL; WBC 16.33 10^3/uL (4.4-10.8)
[2023-01-04 09:50] LABS: Absolute Basophil Count 0.07 10^3/uL (0.0-0.2); Absolute Eosinophil Count 0.02 10^3/uL (0.0-0.7); Absolute Neutrophil Count 15.14 10^3/uL (1.2-6.7)
[2023-01-04 10:02] LABS: Prothrombin Time 10.1 sec (9.3-11.0)
[2023-01-04 10:13] LABS: Troponin I 61 ng/L (<or=60)
[2023-01-04 10:14] LABS: Bilirubin Small (Negative); Blood Moderate (Negative); Clarity Clear (Clear); Glucose Negative (Negative); Ketones 40 mg/dL (Negative); Leukocyte Esterase Negative (Negative); Nitrite Negative (Negative); Specific Gravity >= 1.030 (1.005-1.025); Urobilinogen 0.2 mg/dL (Up to 0.2); pH 5.5 (5-8)
[2023-01-04 10:21] LABS: Bacteria Rare HPF (Negative); C & S Indicated? No/Sq. Contamination; Casts Negative LPF (Negative); Crystals Negative HPF (Negative); Epithelial Cells Many HPF (Negative); Mucus Negative (Negative)
[2023-01-04 10:22] LABS: ALT 15 U/L (14-59); AST 22 U/L (15-37); Albumin 3.6 g/dL (3.4-5.0); Alkaline Phosphatase 103 U/L (46-116); Anion Gap 10.9 mmol/L (3-11); BUN 11 mg/dL (7-18); Bilirubin, Total 0.6 mg/dL (0.2-1.0); CO2 25.1 mmol/L (21.0-32.0); CREATININE 1.2 mg/dL (0.55-1.02); Calcium 9.5 mg/dL (8.5-10.1); Chloride 98 mmol/L (98-107); Estimated GFR 48.39 (mL/min/1.73m2); Glucose 237 mg/dL (74-106); Magnesium 0.9 mg/dL (1.8-2.4); NT-proBNP 2475 pg/mL (<300); Potassium 5.6 mmol/L (3.5-5.1); Sodium 134 mmol/L (136-145); Total Protein 7.9 g/dL (6.4-8.2)
[2023-01-04 10:24] LABS: ETHANOL BLOOD < 3.0 mg/dL (<10)
[2023-01-04 10:28] LABS: *AMPHETAMINES SCREEN URINE Negative (Negative); *BARBITURATES SCREEN URINE Negative (Negative); *BENZODIAZEPINES SCREEN URINE Negative (Negative); Cannabinoids THC Negative (Negative); Cocaine Screen,Urine Negative (Negative); METHADONE URINE SCREEN Negative (Negative); OPIATES URINE SCREEN Negative (Negative)
[2023-01-04 10:29] LABS: Tricyclic Antidepressants Negative (Negative)
--- NOTE | 2023-01-04 10:45 | DI.RAD_ITS ---
Exam(s) XR PORTABLE CHEST AP EXAM: XR PORTABLE CHEST AP CLINICAL HISTORY: AMS. TECHNIQUE: 2D digital imaging was performed. COMPARISON: CR,XR XR CHEST 2V PA LATERAL from 09/01/2022 FINDINGS: Single AP portable view. Mild cardiomegaly. Mediastinum not widened. Lungs are clear. No infiltrates nor obvious pleural effusions. IMPRESSION: No acute pulmonary findings on this single AP portable view of the chest. DATA REPOSITORY: RADIATION DOSE DELIVERED:
[2023-01-04] MEDS: Normal Saline 500 ML 250 ML IV (10:55)
[2023-01-04] MEDS: MAGNESIUM SULFATE 2 GM/50 ML BAG IVPB (10:55)
--- NOTE | 2023-01-04 11:05 | DI.MRI_ITS ---
Exam(s) MR ANGIO BRAIN WO EXAM: MR ANGIO BRAIN WO CLINICAL HISTORY: AMS, CVA TECHNIQUE: Performed on 1.5 garett unit with [id number] sequence. No IV contrast COMPARISON: MR MR BRAIN WO from 01/04/[address] scan earlier same date also reviewed. FINDINGS: Sequences somewhat blurred by motion artifact ANTERIOR CIRCULATION: Both internal carotid arteries are patent in the skull base and intracavernous aspects are patent. S upraclinoid aspects are patent. Both A1 segments are patent. There is a single midline proximal ant erior cerebral artery. This bifurcates a few cm distal to its origin. Both middle cerebral arteries appear patent without evidence of intraluminal thrombus nor significant stenosis. There is flow signal seen within the distal sylvian fissure branches of both middle cereb ral arteries. No MCA aneurysms evident. POSTERIOR CIRCULATION: Both vertebral arteries contribute to the formation of the basilar artery at the skull base and the b asilar artery ascends as patent vessel in the midline. Distally it gives off superior cerebellar art eries and terminates as patent bilateral posterior cerebral arteries. There is no obvious significan t stenosis in the visualized inspector filter tip. There is no evidence of aneurysm of the tip of the basilar artery nor elsewhere in the [id number] is. IMPRESSION: 1. Somewhat limited study due to motion artifact. However, main intracranial arteries are patent wit h no evidence of intraluminal filling defects nor tight stenoses. 2. There are no aneurysms evident. DATA REPOSITORY:
--- NOTE | 2023-01-04 11:05 | DI.MRI_ITS ---
Exam(s) MR ANGIO NECK WO CLINICAL HISTORY: CVA, AMS. TECHNIQUE: Performed on 1.5 garett unit with [id number] sequence CONTRAST MATERIAL: None. COMPARISON: None FINDINGS: Images somewhat blurred due to motion artifact. ANTERIOR CIRCULATION: Aortic arch anatomy is conventional. Both common carotid arteries ascend medial courses, less than 1 cm apart in the prevertebral regions. There does not appear significant stenosis at the carotid bif urcations nor in the proximal ICAs and both ICAs exhibit normal diameters in the upper neck and skull base. POSTERIOR CIRCULATION: Both vertebral arteries exhibit normal luminal diameters and originated conventional fashion off the subclavian arteries. There is no evidence of intraluminal thrombus nor dissection in either vertebra l artery and at the skull base both vertebral arteries contribute to the formation of the basilar art satish. IMPRESSION: Patent carotid arteries in the neck without significant stenosis. The course of both vertebral arter ies is relatively midline. Patent vertebral arteries in the neck. DATA REPOSITORY:
[2023-01-04] MEDS: ACETAMINOPHEN 1,000 MG/100 ML BTL 400 MG IVPB (11:13)
--- NOTE | 2023-01-04 11:15 | NUR.NOTE ---
Nursing Note: Pt has warm blankets for comfort and medications administered. Pt to MRI.
[2023-01-04] MEDS: LORazepam 2 MG/ML VIAL IVP (11:32)
--- NOTE | 2023-01-04 11:49 | NUR.NOTE ---
Nursing Note: Pt unable to remain still for MRI. MD aware and medications ordered / administered. MRI to be completed before returning to ED.
[2023-01-04 14:42] LABS: Troponin I 67 ng/L (<or=60)
[2023-01-04] MEDS: glipiZIDE 10 MG TAB PO (15:42)
[2023-01-04] MEDS: Pregabalin 50 MG CAP PO ×2 (15:42→20:25)
[2023-01-04] MEDS: Metoprolol 5 MG/5 ML VIAL IVP (15:42)
[2023-01-04] MEDS: Nystatin POWDER 60 GM JAR TP ×2 (16:10→20:28)
--- NOTE | 2023-01-04 16:41 | W.PM.HP.N ---
Date of service: 01/04/23 Time of Service: 16:45 Assessment and Plan Assessment and plan (1) Altered mental status: Status: Acute Assessment and plan: Initially concerned with CVA but this was not borne out on MRI. TIA? Lethargic after lorazepam upon admission so altered because of that. She has an elevated WBC count. No fever though reportedly had one at home. Procalcitonin 0.1. Monitor for any development of infection or recurrent altered mental status. (2) Chronic kidney disease: Status: Chronic Assessment and plan: Creatinine of 1.2 which is significantly improved from a 4.2 in sep this year. Most often her creatinine in our records are in the 2's. (3) Diabetes mellitus type 2: Status: Chronic Assessment and plan: Glucose 237. On glipizide at home; hold until adequate oral intake established. Cont Lantus; may need to adjust. Add SS correction insulin dosing. Diabetic diet. (4) CHF (congestive heart failure): Status: Chronic Assessment and plan: Elevated BNP. Not hypoxic. CXR: Lungs are clear.? No infiltrates nor obvious pleural effusions. Monitor for volume overload. (5) Morbid obesity: Status: Chronic Assessment and plan: Likely OHS. (6) Hyperlipidemia: Status: Chronic Assessment and plan: continue home simvastatin. (7) Depression: Status: Chronic Assessment and plan: Continue home duloxetine. (8) COPD (chronic obstructive pulmonary disease): Status: Chronic Assessment and plan: Former smoking , no formal testing available - albuterol prn (9) Discharge planning issues: Status: Deleted Assessment and plan: Full Code. Care management will be involved. History of Present Illness History of Present Illness Chief Complaint: Altered mental status Narrative: This is a 72 yo female with a PMH of CHF, COPD, CKD, DM2, morbid obesity, sedentary lifestyle. She presented to the ED via EMS. Her endorsed that she complained of a BATISTA the day prior to arrival. He felt she was more lethargic and confused on day of admission. EMS reported a BP of 63/47 with a temp of 101. In the ED her SBP ranged from 148-180. T36.7. Blood glucose 192. Na 134. K 5.6. Creatinine 1.2. LFTs normal. Trop 61. NTProBNP 2475. GCS of 10. UA neg for infection. Etoh <3. CT brain: Images degraded by motion artifact but there is subtle hypodensity in the left occipital lobe, possibly indicating infarct.? Recommend follow-up MRI. MRI/MRA head and neck: Somewhat limited study due to motion artifact.? However, main intracranial arteries are patent with no evidence of intraluminal filling defects nor tight stenoses. Patent carotid arteries in the neck without significant stenosis.? The course of both vertebral arteries is relatively midline.?Patent vertebral arteries in the neck. She was administered 2mg IV lorazepam prior to imaging studies. Pt lethargic upon arrival to med-surg unit. She did waken later and she denied abd pain/Nausea. No CP/SOA. No BATISTA. Review of Systems All systems reviewed & are unremarkable except as noted in HPI and below PFSH All Active Problems Altered mental status (Acute) Fall as cause of accidental injury at home as place of occurrence (Acute) Contusion of left lower extremity (Acute) Back contusion (Acute) Fall at home (Acute) Hypomagnesemia (Acute) UTI (urinary tract infection) (Acute) Acute CVA (cerebrovascular accident) (Acute) Encounter for counseling regarding advance directives (Acute) Full code status (Acute) Deficit in activities of daily living (ADL) (Acute) Sedentary lifestyle (Acute) Need for home health care (Acute) Impaired instrumental activities of daily living (Acute) Yeast vaginitis (Acute) Pain (Acute) COPD (chronic obstructive pulmonary disease) (Chronic) Acute UTI (Acute) CHF (congestive heart failure) (Chronic) Fall (Acute) Anemia (Chronic) Mass of left ovary (Acute) Chronic kidney disease (Chronic) Essential hypertension (Chronic) Diabetes mellitus type 2 (Chronic) On Metformin Back pain (Acute) Morbid obesity (Chronic) Hyperlipidemia (Chronic) Depression (Chronic) Vitamin D deficiency (Chronic) History of colostomy (Chronic) Medical History Anemia (05/03/13) Hemoglobin 8.2. Anemia Depression Diabetes mellitus Diverticulitis Recurrent. S/p high risk hemicolectomy in the setting of sepsis and hypotension 03/22/2013. Complication of a stomal leak resulting in an abdominal abscess. Readmitted to [facility] 05/03/13 emergently with sepsis syndrome and had an abdominal abscess drained. Completed rehab at [facility] with discharge most recently on after extensive dressing care of the abdominal wound with a wound VAC. 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 Leukocytosis. Intermittently febrile. Fall Gastroesophageal reflux disease GERD (gastroesophageal reflux disease) Hepatitis C Recent negative viral count. History of breast cancer History of hepatitis C History of incisional hernia History of renal failure Migraine Morbid obesity Osteopenia Palliative care patient Vitamin D deficiency Surgical History Colectomy H/O mastectomy Hernia Repair, Incisional x2 S/P cholecystectomy Family History Mother No problems noted. Father No problems noted. 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 Meds Allergies and Home Medications Allergies Allergy/AdvReac Type Severity Reaction Status Date / Time epinephrine Allergy Severe chest Unverified 12/28/22 22:12 pain/heart attack Penicillins Allergy Intermediate rsh fever Unverified 12/28/22 22:12 banana [Banana] Allergy Unverified 12/28/22 22:12 NSAIDS (Non-Steroidal Allergy unkown Unverified 12/28/22 22:12 Anti-Inflamma Sulfa (Sulfonamide Allergy rash,fever Unverified 12/28/22 22:12 Antibiotics) Tetracyclines Allergy rash fever Unverified 12/28/22 22:12 sodium polystyrene sulfonate AdvReac Severe tachy/dyspn Unverified 12/28/22 22:12 [From Kayexalate] ea/rash Niacin Preparations AdvReac Intermediate flushing Unverified 12/28/22 22:12 Home Medications Medication Instructions Recorded Confirmed Type calcium carbonate 600 mg-vitamin 1 ea PO DAILY 05/10/13 12/28/22 History D3 10 mcg (400 unit) tablet (Calcium 600 + D(3)) simvastatin 40 mg tablet (Zocor) 40 mg PO HS 05/10/13 12/28/22 History cholecalciferol (vitamin D3) 50 4,000 unit PO DAILY 11/05/21 12/28/22 History mcg (2,000 unit) tablet duloxetine 60 mg capsule,delayed 60 mg PO BID 11/05/21 12/28/22 History release glipizide 5 mg tablet 10 mg PO BID 11/05/21 12/28/22 History omeprazole 40 mg capsule,delayed 40 mg PO DAILY 11/05/21 12/28/22 History release pregabalin 50 mg capsule 50 mg PO TID 11/05/21 12/28/22 History metoprolol succinate 25 mg 25 mg PO DAILY #30 tabs 11/09/21 12/28/22 Rx tablet,extended release 24 hr magnesium oxide 400 mg PO BID #60 tabs 12/02/21 12/28/22 Rx quetiapine 25 mg tablet 12.5 mg PO QPM #15 tabs 12/02/21 12/28/22 Rx lisinopril 10 mg tablet 10 mg PO DAILY 03/16/22 12/28/22 History tramadol 50 mg tablet 100 mg PO QHS 03/17/22 12/28/22 History aspirin 81 mg chewable tablet 81 mg PO DAILY 03/24/22 12/28/22 History insulin glargine 100 unit/mL (3 25 unit (0.25 mL) subcut BID #0 mL 04/03/22 12/28/22 Rx mL) subcutaneous pen (Lantus Solostar U-100 Insulin) nystatin 100,000 unit/gram topical 1 applic topical BID #0 grams 09/06/22 12/28/22 Rx powder ciprofloxacin HCl 500 mg tablet 500 mg PO BID 7 days #14 tabs 12/29/22 Rx Exam Narrative Exam Narrative: Gen: Asleep initially then awake later when exam occured. . Obese body habitus. follows commands sporatically. AMS Head: Normocephalic, no trauma. Eyes: Pupils PERRL, sclera clear. Chest: RRR, Normal S1, S2, distal pulses intact. Resp: Lungs clear to auscultation bilaterally, no wheezes, rales, or rhonchi. Abdomen: Soft, non-distended, Normoactive bowel sounds all 4 quads. Colostomy noted to RLQ. Loose brown stool noted in bag. No surrounding erythema or swelling. Musculoskeletal: Unable to assess gait, patient is wheelchair bound. Skin: No suspicious rashes or lesions. Tattoos in various places. Neurologic: Superintendent Custodian Janitor strength equal bilaterally 3/5. Lifts each leg off bed but cannot hold for only less than 1 second. Psych: Answers some questions but oriented only to person. Results Labs 01/04/23 09:40 01/04/23 09:40 Labs: Laboratory Results - last 24 hr 01/04/23 01/04/23 01/04/23 09:40 09:40 09:40 WBC RBC Hgb Hct MCV MCH MCHC RDW Plt Count MPV Immature Gran % Neutrophils % Lymphocytes % Monocytes % Eosinophils % Basophils % Nucleated RBC % Absolute Neutrophils Absolute Lymphocytes Absolute Monocytes Absolute Eosinophils Absolute Basophils PT 10.1 INR 1.0 VBG Lactate Sodium 134 L Potassium 5.6 H Chloride 98 Carbon Dioxide 25.1 Anion Gap 10.9 BUN 11 Creatinine 1.2 H Est GFR (CKD-EPI 2020) 48.39 Glucose 237 H Calcium 9.5 Magnesium 0.9 L Total Bilirubin 0.6 AST 22 ALT 15 Alkaline Phosphatase 103 Troponin I 61 H NT-Pro-B Natriuret Pep 2475 H Total Protein 7.9 Albumin 3.6 Urine Color Urine Clarity Urine pH Ur Specific [place] Urine Protein Urine Ketones Urine Blood Urine Nitrite Urine Bilirubin Urine Urobilinogen Ur Leukocyte Esterase Urine RBC Urine WBC Ur Epithelial Cells Urine Crystals Urine Bacteria Urine Casts Urine Mucus Ur Culture Indicated? Urine Glucose Urine Opiates Screen Urine Methadone Screen Ur Barbiturates Screen Ur Tricyclics Screen Ur Amphetamines Screen U Benzodiazepines Scrn Urine Cocaine Screen Ur THC Screen Ethyl Alcohol Cancelled < 3.0 01/04/23 01/04/23 01/04/23 09:40 09:40 09:40 WBC 16.33 H RBC 5.37 H Hgb 14.7 Hct 46.7 H MCV 87 MCH 27.4 MCHC 31.5 L RDW 13.6 Plt Count 154 MPV 9.9 Immature Gran % 0.6 Neutrophils % 92.7 Lymphocytes % 5.0 Monocytes % 1.2 Eosinophils % 0.1 Basophils % 0.4 Nucleated RBC % 0.0 Absolute Neutrophils 15.14 H Absolute Lymphocytes 0.82 L Absolute Monocytes 0.20 Absolute Eosinophils 0.02 Absolute Basophils 0.07 PT INR VBG Lactate 1.7 H Sodium Potassium Chloride Carbon Dioxide Anion Gap BUN Creatinine Est GFR (CKD-EPI 2020) Glucose Calcium Magnesium Total Bilirubin AST ALT Alkaline Phosphatase Troponin I NT-Pro-B Natriuret Pep Cancelled Total Protein Albumin Urine Color Urine Clarity Urine pH Ur Specific [place] Urine Protein Urine Ketones Urine Blood Urine Nitrite Urine Bilirubin Urine Urobilinogen Ur Leukocyte Esterase Urine RBC Urine WBC Ur Epithelial Cells Urine Crystals Urine Bacteria Urine Casts Urine Mucus Ur Culture Indicated? Urine Glucose Urine Opiates Screen Urine Methadone Screen Ur Barbiturates Screen Ur Tricyclics Screen Ur Amphetamines Screen U Benzodiazepines Scrn Urine Cocaine Screen Ur THC Screen Ethyl Alcohol 01/04/23 01/04/23 01/04/23 10:05 10:05 11:51 WBC RBC Hgb Hct MCV MCH MCHC RDW Plt Count MPV Immature Gran % Neutrophils % Lymphocytes % Monocytes % Eosinophils % Basophils % Nucleated RBC % Absolute Neutrophils Absolute Lymphocytes Absolute Monocytes Absolute Eosinophils Absolute Basophils PT INR VBG Lactate Sodium Potassium Chloride Carbon Dioxide Anion Gap BUN Creatinine Est GFR (CKDEPI 2020) Glucose Calcium Magnesium Total Bilirubin AST ALT Alkaline Phosphatase Troponin I Cancelled NT-Pro-B Natriuret Pep Total Protein Albumin Urine Color Yellow Urine Clarity Clear Urine pH 5.5 Ur Specific [place] >= 1.030 H Urine Protein >=300 H Urine Ketones 40 H Urine Blood Moderate H Urine Nitrite Negative Urine Bilirubin Small H Urine Urobilinogen 0.2 Ur Leukocyte Esterase Negative Urine RBC 5-10 H Urine WBC 3-5 Ur Epithelial Cells Many Urine Crystals Negative Urine Bacteria Rare Urine Casts Negative Urine Mucus Negative Ur Culture Indicated? No/Sq. Contamination Urine Glucose Negative Urine Opiates Screen Negative Urine Methadone Screen Negative Ur Barbiturates Screen Negative Ur Tricyclics Screen Negative Ur Amphetamines Screen Negative U Benzodiazepines Scrn Negative Urine Cocaine Screen Negative Ur THC Screen Negative Ethyl Alcohol 01/04/23 14:05 WBC RBC Hgb Hct MCV MCH MCHC RDW Plt Count MPV Immature Gran % Neutrophils % Lymphocytes % Monocytes % Eosinophils % Basophils % Nucleated RBC % Absolute Neutrophils Absolute Lymphocytes Absolute Monocytes Absolute Eosinophils Absolute Basophils PT INR VBG Lactate Sodium Potassium Chloride Carbon Dioxide Anion Gap BUN Creatinine Est GFR (CKD-EPI 2020) Glucose Calcium Magnesium Total Bilirubin AST ALT Alkaline Phosphatase Troponin I 67 H* NT-Pro-B Natriuret Pep Total Protein Albumin Urine Color Urine Clarity Urine pH Ur Specific [place] Urine Protein Urine Ketones Urine Blood Urine Nitrite Urine Bilirubin Urine Urobilinogen Ur Leukocyte Esterase Urine RBC Urine WBC Ur Epithelial Cells Urine Crystals Urine Bacteria Urine Casts Urine Mucus Ur Culture Indicated? Urine Glucose Urine Opiates Screen Urine Methadone Screen Ur Barbiturates Screen Ur Tricyclics Screen Ur Amphetamines Screen U Benzodiazepines Scrn Urine Cocaine Screen Ur THC Screen Ethyl Alcohol Last Vital Signs Temp 36.5 C 01/04/23 15:10 Pulse 114 H 01/04/23 15:42 Resp 18 01/04/23 15:10 BP 138/84 01/04/23 15:10 Pulse Ox 97 01/04/23 15:10 Time Spent Time spent with Patient: 40-54 minutes Time was spent: preparing to see the patient(eg.review tests), obtaining and/or reviewing separately otained hiistory, ordering medications,tests, procedures, referring, communicating with other health respiratory care technician and indepentently interpreting results
[2023-01-04 17:00] LABS: Lab Add On Test DONE
[2023-01-04 17:21] LABS: Troponin I 66 ng/L (<or=60)
[2023-01-04 17:55] LABS: Procalcitonin 0.1 ng/mL
[2023-01-04 19:20] LABS: Lactate 1.3 mmol/L (0.6-1.4)
[2023-01-04] MEDS: Magnesium Oxide 400 MG TAB PO (20:25)
[2023-01-04] MEDS: DULoxetine 30 MG CAP 60 MG PO (20:25)
[2023-01-04] MEDS: QUEtiapine 25 MG TAB 12.5 MG PO (20:25)
[2023-01-04] MEDS: Insulin Glargine 300 UNITS/3 ML PEN 25 UNITS SC (20:26)
[2023-01-04] MEDS: traMADol 50 MG TAB 100 MG PO (21:40)
[2023-01-04] MEDS: Simvastatin 40 MG TAB PO (21:40)
[2023-01-05] VITALS (8 sets, daily range): BP systolic 118–158; BP diastolic 58–90; PULSE 84–99; RESP 16–24; TEMP 36.6–37.3; O2SAT 90–97
[2023-01-05] MEDS: Acetaminophen 325 MG TAB PO (06:36)
--- NOTE | 2023-01-05 08:04 | OT.INIE ---
Occupational Therapy Notes Inpatient Occupational Therapy Evaluation Date: 01/05/23 Referring Doctor:Dr. Rasheed FORBES Orders: Urgent Precautions: Fall, Standard, Full PATIENT PROFILE/ADMITTING DIAGNOSIS: Pt is a 72 year old female who was admitted through the ED on 01/04/23 for the following dx of acute CVA, altered mental status, chronic kidney, DM II, CHF, Depression and COPD. Past Medical History: All Active Problems? Altered mental status (Acute) Fall as cause of accidental injury at home as place of occurrence (Acute) Contusion of left lower extremity (Acute) Back contusion (Acute) Fall at home (Acute) Hypomagnesemia (Acute) UTI (urinary tract infection) (Acute) Acute CVA (cerebrovascular accident) (Acute) Encounter for counseling regarding advance directives (Acute) Full code status (Acute) Deficit in activities of daily living (ADL) (Acute) Sedentary lifestyle (Acute) Need for home health care (Acute) Impaired instrumental activities of daily living (Acute) Yeast vaginitis (Acute) Pain (Acute) COPD (chronic obstructive pulmonary disease) (Chronic) Acute UTI (Acute) CHF (congestive heart failure) (Chronic) Fall (Acute) Anemia (Chronic) Mass of left ovary (Acute) Chronic kidney disease (Chronic) Essential hypertension (Chronic) Diabetes mellitus type 2 (Chronic) On MetforminBack pain (Acute) Morbid obesity (Chronic) Hyperlipidemia (Chronic) Depression (Chronic) Vitamin D deficiency (Chronic) History of colostomy (Chronic) Medical History? Anemia (05/03/13) Hemoglobin 8.2.Anemia Depression Diabetes mellitus Diverticulitis Recurrent.? S/p high risk hemicolectomy in the setting of sepsis and hypotension 03/22/2013. Complication of a stomal leak resulting in an abdominal abscess.? Readmitted to [facility] 05/03/13 emergently with sepsis syndrome and had an abdominal abscess drained. ? 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 Leukocytosis.? Intermittently febrile.Fall Gastroesophageal reflux disease GERD (gastroesophageal reflux disease) Hepatitis C Recent negative viral count.History of breast cancer History of hepatitis C History of incisional hernia History of renal failure Migraine Morbid obesity Osteopenia Palliative care patient Vitamin D deficiency Surgical History? Colectomy H/O mastectomy Hernia Repair, Incisional x2S/P cholecystectomy Social History/Home Situation: Pt reports that she lives alone in a private home. Her baseline she notes is pretty (I). She does have a tub shower so OT recommends a shower seat if pt returns home as well as grab bars for safety. She notes that she was (I) with driving prior and has 4 children and multiple grandchildren. She also reports that she does not have any pets and her home tasks she feels she is (I) with. She does get Meals on Wheels (3 meals per day) which she states is helpful. No HH services prior and no (A) from others. Equipment owned/DME: [employer] which she states that she utilizes for functional mobility SUBJECTIVE: Pt was lying in bed when OT arrived reporting that she isn't sure how she got here (to the hospital). She notes that she has a headache and feels awful this morning. She reports that she feels tired and fatigued. OBJECTIVE: General Observation: IV in (L) UE, pleasant but minimal verbal communication at start then progressively better, telemetry. Mental Status: A&Ox3 Pain: c/o pain in her head, she states she has a severe headache ROM: RUE Functionally able to cross midline, touch lower face and abdomen L UE Functionally able to cross midline, touch lower face and abdomen STRENGTH: RUE 3/5 with weak sorter/assay tech strength LUE 2/5 with weak sorter/assay tech strength FUNCTIONAL MOBILITY/ADLS: BATHING max (A) set up Bathing UE (I) lower face with (B) hand hold Bathing LE NT DRESSING Dressing UE Mod (A) Dressing LE Max (A) GROOMING Max (A) brushing hair, pt denies oral hygiene at this time. TOILETING NT EATING Able to bring cup to mouth with increased performance time. BALANCE: Static sitting Good Dynamic Sitting Fair-Good SPECIAL TESTS: Daily Activity Limitations Standardized Measure [facility] AM -PAC ?6 clicks? Daily Activity Inpatient Short Form: Raw score: 12 Standardized score: 30.60 CMS score: 66.57% INFORMED CONSENT/EDUCATION: Pt instructed in purpose of OT Consult and plan of care. ASSESSMENT: Patient is a 72-year-old female referred to occupational therapy services with diagnosis of acute CVA, altered mental status, chronic kidney, DM II, CHF, Depression and COPD. Patient presents with clinical signs and symptoms consistent with dx, as demonstrated by the following impairment level findings/ functional limitations: Impairments in ADL/IADL and leisure activities, decreased UE strength, UE neglect, decreased AROM of (B) UE, pain in head, difficulty with UE movements, decreased functional activity tolerance, decreased ability to perform ADLs at this time. AMPAC score 12 Patient is assessed as a Moderate [id number] complexity based on the following: History: see above Examination: see functional limitations as noted above Presentation: evolving Decision Making: AMPAC Score 12 GOALS Goals x1 week 1. Transfers (I) 2. Dressing seated in chair min (A) 3. Bathing seated in chair min (A) 4. Toileting on commode (I) 5. Eating (I) PLAN OF CARE/TREATMENT PLAN: 1x/day, 5 days/ week x 1week Initiate Occupational Therapy Services for bathing, dressing, grooming, toileting, eating, transfer training. DISCHARGE RECOMMENDATIONS Based on pts current level of function, decreased functional activity tolerance, altered mental status and UE weakness- OT recommends that pt go SNF vs. [facility] at this time for progressive rehabilitation. OT will conitnue to assess with pts goal of returning home if possible. If pt returns home- she will need services, a shower seat, grab bars TREATMENT TIME/MINUTES/CODES 38815, [id number], 24 minutes (07:40) Aisha Claros OTR/[facility]
[2023-01-05 08:47] LABS: BUN 19 mg/dL (7-18); C-Reactive Protein 1.13 mg/dL (0.0-0.3); CREATININE 1.7 mg/dL (0.55-1.02); Calcium 9.8 mg/dL (8.5-10.1); Chloride 100 mmol/L (98-107); Estimated GFR 31.86 (mL/min/1.73m2); Glucose 120 mg/dL (74-106); Magnesium 1.4 mg/dL (1.8-2.4); Potassium 4.5 mmol/L (3.5-5.1); Sodium 136 mmol/L (136-145)
[2023-01-05 09:00] LABS: Abs Immature Grans 0.07 10^3/uL (0.0-0.06); Absolute Basophil Count 0.08 10^3/uL (0.0-0.2); Absolute Eosinophil Count 0.22 10^3/uL (0.0-0.7); Absolute Lymphocyte Count 1.93 10^3/uL (1.2-3.4); Absolute Monocyte Count 0.95 10^3/uL (0.1-0.8); Absolute Neutrophil Count 9.71 10^3/uL (1.2-6.7); Basophils % 0.6; Eosinophils % 1.7; HCT 47.3 % (36.0-46.0); HGB 14.4 g/dL (11.2-15.7); Immature Grans % 0.5; Lymphocytes % 14.9; MCHC 30.4 % (32.0-36.0); MCV 89 fL (80-95); MPV 9.3 fL (8.0-11.0); Monocytes % 7.3; Platelet Count 145 10^3/uL (130-400); RBC 5.33 10^6/uL (3.93-5.22); RDW-SD 45.1 fL; WBC 12.95 10^3/uL (4.4-10.8)
--- NOTE | 2023-01-05 09:14 | INITIAL_ITS ---
Date of service: 01/05/23 Time of Service: 09:14 Care Management Initial Assmt Initial Assessment REASON FOR HOSPITALIZATION:: altered mental status PREVIOUS FUNCTIONAL STATUS/SOCIAL/FAMILY SUPPORTS:: Raven lives in [facility] with her boyfriend Rodolfo. She has three daughters who live locally. Raven uses an electric wheelchair for mobility and also has a FWW but walks very little, if at all. She has support from family and friends CURRENT FUNCTIONAL STATUS:: Raven was sitting up in bed with a lunch tray in front of her. It was apparent that she has not taken a bite yet. She had a spoon with of ground meat in it and held it there throughout the visit. It appeared as though she did not know what to do with it. Raven appeared quite confused and forgetful. She was unable to tell me where she lives or whether or not she is still with Rodolfo. One thing she was clear about is that she is not willing to go to rehab. She was non-committal about home health. CM received a call from Deepika Aguilar with [facility] this afternoon asking for clinical information. An application has been submitted on Raven's behalf for [facility]. ADVANCE DIRECTIVES:: On file. Daughter Lindsey Granados is [employer] Has patient been provided with info about the portal/API?: Yes Did the patient sign up for the portal?: No CODE STATUS:: Full Code INSURANCE COVERAGE / FINANCIAL ISSUES:: [facility] Medicare replacement Plan CURRENT HOME/COMMUNITY SERVICES/EQUIPMENT:: none currently PRIMARY CARE PHYSICIAN:: Mary Ann Durham POTENTIAL DISCHARGE NEEDS:: follow up with PCP and plan of care PATIENT/FAMILY EDUCATION NEEDS:: Review of discharge instructions, activity, limitations, medications, diet, follow up plan and discuss Ask Me Three TRANSPORTATION:: via RCT vs private vehicle with family PLAN:: Anticipate Raven will return home, possibly with new home health services. She will follow up with her PCP and plan of care and transport with family vs RCT. CM will support Raven and assess for discharge planning needs. PFSH All Active Problems Altered mental status (Acute) Fall as cause of accidental injury at home as place of occurrence (Acute) Contusion of left lower extremity (Acute) Back contusion (Acute) Fall at home (Acute) Hypomagnesemia (Acute) UTI (urinary tract infection) (Acute) Acute CVA (cerebrovascular accident) (Acute) Encounter for counseling regarding advance directives (Acute) Full code status (Acute) Deficit in activities of daily living (ADL) (Acute) Sedentary lifestyle (Acute) Need for home health care (Acute) Impaired instrumental activities of daily living (Acute) Yeast vaginitis (Acute) Pain (Acute) COPD (chronic obstructive pulmonary disease) (Chronic) Acute UTI (Acute) CHF (congestive heart failure) (Chronic) Fall (Acute) Anemia (Chronic) Mass of left ovary (Acute) Chronic kidney disease (Chronic) Essential hypertension (Chronic) Diabetes mellitus type 2 (Chronic) On Metformin Back pain (Acute) Morbid obesity (Chronic) Hyperlipidemia (Chronic) Depression (Chronic) Vitamin D deficiency (Chronic) History of colostomy (Chronic) Medical History Anemia (05/03/13) Hemoglobin 8.2. Anemia Depression Diabetes mellitus Diverticulitis Recurrent. S/p high risk hemicolectomy in the setting of sepsis and hypotension 03/22/2013. Complication of a stomal leak resulting in an abdominal abscess. Read[place] to [facility] 05/03[place] emergently with sepsis syndrome and had an abdominal abscess drained. Completed rehab at [facility] with discharge most recently on after extensive dressing care of the abdominal wound with a wound VAC. 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 Leukocytosis. Intermittently febrile. Fall Gastroesophageal reflux disease GERD (gastroesophageal reflux disease) Hepatitis C Recent negative viral count. History of breast cancer History of hepatitis C History of incisional hernia History of renal failure Migraine Morbid obesity Osteopenia Palliative care patient Vitamin D deficiency Surgical History Colectomy H/O mastectomy Hernia Repair, Incisional x2 S/P cholecystectomy Family History Mother No problems noted. Father No problems noted. 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
[2023-01-05] MEDS: Magnesium Oxide 400 MG TAB PO ×2 (09:25→20:27)
[2023-01-05] MEDS: Lisinopril 10 MG TAB PO (09:25)
[2023-01-05] MEDS: Nystatin POWDER 60 GM JAR TP (09:26)
[2023-01-05] MEDS: Omeprazole 20 MG CAPCR PO (09:26)
[2023-01-05] MEDS: Cholecalciferol (Vitamin D3) 1,000 UNIT TAB 4000 UNITS PO (09:26)
[2023-01-05] MEDS: Aspirin 81 MG CHEW PO (09:26)
[2023-01-05] MEDS: Metoprolol CR 25 MG TABCR PO (09:26)
[2023-01-05] MEDS: Pregabalin 50 MG CAP PO ×2 (09:26→20:27)
[2023-01-05] MEDS: DULoxetine 30 MG CAP 60 MG PO ×2 (09:26→20:26)
--- NOTE | 2023-01-05 09:33 | PDOC.CMDIS ---
Date of service: 01/05/23 Time of Service: 09:33 Care Management Discharge Plan Reason for Hospitalization: altered mental status Discharge Plan: Lee will be transferred to [facility] at [facility] in [place]. He will transport via EMS coordinated by
[2023-01-05] MEDS: Insulin Glargine 300 UNITS/3 ML PEN 25 UNITS SC ×2 (10:01→22:20)
--- NOTE | 2023-01-05 11:40 | W.PM.PROGNOT ---
Date of Service Date of service: 01/05/23 Time of Service: 11:40 Assessment and Plan Assessment and plan (1) Altered mental status: Status: Acute Assessment and plan: Initially concerned with CVA but ruled out on MRI. TIA? Lethargic after lorazepam upon admission so altered because of that. She has an elevated WBC count. No fever though reportedly had one at home. Procalcitonin 0.1. Monitor for any development of infection or recurrent altered mental status. (2) Chronic kidney disease: Status: Chronic Assessment and plan: creatinine up to 1.7 from 1.2, encourage po intake, monitor closely (3) Diabetes mellitus type 2: Status: Chronic Assessment and plan: On glipizide at home; hold until adequate oral intake established. Cont Lantus; may need to adjust. Add SS correction insulin dosing. Diabetic diet. (4) CHF (congestive heart failure): Status: Chronic Assessment and plan: Elevated BNP. Not hypoxic. CXR: Lungs are clear.? No infiltrates nor obvious pleural effusions. Monitor for volume overload. (5) Morbid obesity: Status: Chronic Assessment and plan: Likely OHS. (6) Hyperlipidemia: Status: Chronic Assessment and plan: continue home simvastatin. (7) Depression: Status: Chronic Assessment and plan: Continue home duloxetine. (8) COPD (chronic obstructive pulmonary disease): Status: Chronic Assessment and plan: Former smoking , no formal testing available - albuterol prn (9) Discharge planning issues: Status: Acute Assessment and plan: Full Code. Care management will be involved. palliative consult placed discussed with Dr Luna Subjective Subjective Patient reports: no new complaints, feels better and afebrile Interval history since last seen: at her baseline, with cognitive impairment Exam Const General: disheveled, frail appearing (older than stated age) and ill appearing chronically Nutritional Appearance: obese morbidly obese Orientation: alert, awake and confused [facility] Head: normal to inspection, normocephalic and atraumatic Mouth: moist mucous membranes abnormal (dry) Chest Chest: normal inspection of the chest Resp Effort & Inspection: normal respiratory effort Auscultation: diminished lung sounds (throughout) Cardio Rate: regular rate Rhythm: regular rhythm GI Inspection: normal to inspection, large pannus and obesity Palpation: soft Neuro General: patient alert, patient awake, no focal motor deficits and patient confused (cognitive impairment, redirectable, at baseline) Psych Mental Status: other (Cognitive impairment at baseline) Speech and Movement: speech and movement normal Mood: other (Cognitive impairment at baseline) Affect: normal affect Objective Last Vital Signs Temp 36.8 C 01/05/23 07:49 Pulse 99 H 01/05/23 07:49 Resp 24 01/05/23 07:49 BP 158/77 H 01/05/23 07:49 Pulse Ox 97 01/05/23 07:49 Laboratory Results - last 24 hr 01/04/23 01/04/23 01/04/23 11:51 14:05 16:52 WBC RBC Hgb Hct MCV MCH MCHC RDW Plt Count MPV Immature Gran % Neutrophils % Band Neutrophils % Lymphocytes % Atypical Lymphs % Monocytes % Eosinophils % Basophils % Metamyelocytes % Myelocytes % Promyelocytes % Other Cells % Nucleated RBC % Absolute Neutrophils Absolute Lymphocytes Absolute Monocytes Absolute Eosinophils Absolute Basophils RBC Morphology Polychromasia Hypochromasia Poikilocytosis Basophilic Stippling Anisocytosis Microcytosis Macrocytosis Spherocytes Tear Drop Cells Ovalocytes Stomatocytes [place] Bodies [place] Cells/Echinocytes Acanthocytes (Spur) Schistocytes VBG Lactate Sodium Potassium Chloride Carbon Dioxide Anion Gap BUN Creatinine Est GFR (CKD-EPI 2020) Glucose Calcium Magnesium Troponin I Cancelled 67 H* 66 H* C-Reactive Protein Procalcitonin Add-On Test Request 01/04/23 01/04/23 01/04/23 16:52 16:59 19:15 WBC RBC Hgb Hct MCV MCH MCHC RDW Plt Count MPV Immature Gran % Neutrophils % Band Neutrophils % Lymphocytes % Atypical Lymphs % Monocytes % Eosinophils % Basophils % Metamyelocytes % Myelocytes % Promyelocytes % Other Cells % Nucleated RBC % Absolute Neutrophils Absolute Lymphocytes Absolute Monocytes Absolute Eosinophils Absolute Basophils RBC Morphology Polychromasia Hypochromasia Poikilocytosis Basophilic Stippling Anisocytosis Microcytosis Macrocytosis Spherocytes Tear Drop Cells Ovalocytes Stomatocytes [place] Bodies [place] Cells/Echinocytes Acanthocytes (Spur) Schistocytes VBG Lactate 1.3 Sodium Potassium Chloride Carbon Dioxide Anion Gap BUN Creatinine Est GFR (CKD-EPI 2020) Glucose Calcium Magnesium Troponin I C-Reactive Protein Procalcitonin 0.1 Add-On Test Request DONE 01/05/23 01/05/23 01/05/23 07:44 08:30 08:30 WBC Cancelled Cancelled RBC Cancelled Cancelled Hgb Cancelled Cancelled Hct Cancelled Cancelled MCV Cancelled Cancelled MCH Cancelled Cancelled MCHC Cancelled Cancelled RDW Cancelled Cancelled Plt Count Cancelled Cancelled MPV Cancelled Cancelled Immature Gran % Cancelled Cancelled Neutrophils % Cancelled Cancelled Band Neutrophils % Cancelled Cancelled Lymphocytes % Cancelled Cancelled Atypical Lymphs % Cancelled Cancelled Monocytes % Cancelled Cancelled Eosinophils % Cancelled Cancelled Basophils % Cancelled Cancelled Metamyelocytes % Cancelled Cancelled Myelocytes % Cancelled Cancelled Promyelocytes % Cancelled Cancelled Other Cells % Cancelled Cancelled Nucleated RBC % Cancelled Cancelled Absolute Neutrophils Cancelled Cancelled Absolute Lymphocytes Cancelled Cancelled Absolute Monocytes Cancelled Cancelled Absolute Eosinophils Cancelled Cancelled Absolute Basophils Cancelled Cancelled RBC Morphology Cancelled Cancelled Polychromasia Cancelled Cancelled Hypochromasia Cancelled Cancelled Poikilocytosis Cancelled Cancelled Basophilic Stippling Cancelled Cancelled Anisocytosis Cancelled Cancelled Microcytosis Cancelled Cancelled Macrocytosis Cancelled Cancelled Spherocytes Cancelled Cancelled Tear Drop Cells Cancelled Cancelled Ovalocytes Cancelled Cancelled Stomatocytes Cancelled Cancelled [place] Bodies Cancelled Cancelled Ti Cells/Echinocytes Cancelled Cancelled Acanthocytes (Spur) Cancelled Cancelled Schistocytes Cancelled Cancelled VBG Lactate Sodium 136 Potassium 4.5 D Chloride 100 Carbon Dioxide 29.0 Anion Gap 7.0 BUN 19 H Creatinine 1.7 H Est GFR (CKD-EPI 2020) 31.86 Glucose 120 H Calcium 9.8 Magnesium 1.4 L Troponin I C-Reactive Protein 1.13 H Procalcitonin Add-On Test Request 01/05/23 08:54 WBC 12.95 H RBC 5.33 H Hgb 14.4 Hct 47.3 H MCV 89 MCH 27.0 MCHC 30.4 L RDW 14.0 Plt Count 145 MPV 9.3 Immature Gran % 0.5 Neutrophils % 75.0 Band Neutrophils % Lymphocytes % 14.9 Atypical Lymphs % Monocytes % 7.3 Eosinophils % 1.7 Basophils % 0.6 Metamyelocytes % Myelocytes % Promyelocytes % Other Cells % Nucleated RBC % 0.0 Absolute Neutrophils 9.71 H Absolute Lymphocytes 1.93 Absolute Monocytes 0.95 H Absolute Eosinophils 0.22 Absolute Basophils 0.08 RBC Morphology Polychromasia Hypochromasia Poikilocytosis Basophilic Stippling Anisocytosis Microcytosis Macrocytosis Spherocytes Tear Drop Cells Ovalocytes Stomatocytes [place] Bodies [place] Cells/Echinocytes Acanthocytes (Spur) Schistocytes VBG Lactate Sodium Potassium Chloride Carbon Dioxide Anion Gap BUN Creatinine Est GFR (CKD-EPI 2020) Glucose Calcium Magnesium Troponin I C-Reactive Protein Procalcitonin Add-On Test Request Time Spent with Patient Time Spent with Patient: 25-34 minutes Time was spent: preparing to see the patient(eg.review tests), obtaining and/or reviewing separately otained hiistory, ordering medications,tests, procedures, referring, communicating with other health wound care nurse and indepentently interpreting results
[2023-01-05] MEDS: Insulin Aspart 300 UNITS/3 ML PEN SC (12:33)
--- NOTE | 2023-01-05 16:25 | PT.INNT ---
Date of service: 01/05/23 Time of Service: 16:25 PT Notes Visit Reasons: Cerebrovascular accident Attempted to see patient three times for a PT evaluation today, all were unproductive. First time Nurse lAma was with her in the morning for her morning med intake. Second time, patient refused to be moved out of bed. Third time at 2:09 PM, patient was still trying to eat her lunch and appeared to be struggling; Nurse Alma apprised. Patient has been known to this provider and required extensive encouragement to participate in therapy. Has been non-ambulatory and only transferred from bed to chair. Was only taking up to 4-5 steps with assist of 2 when she went home in August of 2022 from this hospital against recommendation of going to SNF. Will attempt to mobilize tomorrow when mentation and medical status improve.
[2023-01-05] MEDS: traMADol 50 MG TAB 100 MG PO (20:26)
[2023-01-05] MEDS: Simvastatin 40 MG TAB PO (20:27)
[2023-01-05] MEDS: QUEtiapine 25 MG TAB 12.5 MG PO (20:27)
[2023-01-06] VITALS (8 sets, daily range): BP systolic 100–120; BP diastolic 64–72; PULSE 82–91; RESP 16–22; TEMP 36.2–37.1; O2SAT 91–96
--- NOTE | 2023-01-06 | DI.US_ITS ---
Exam(s) US RENAL EXAM: US RENAL CLINICAL HISTORY: SANDY on CKD. TECHNIQUE: العلي scale, color and spectral Doppler were used. COMPARISON: US US RENAL from 09/02/[address] CHEST/ABD/PEL WO from 09/25/2022 FINDINGS: Renal size in cm: Right: 8.2. Left: 9.7. Echogenicity: Normal. Hydronephrosis: No. Cyst or mass: There is a simple cyst seen in the superior lateral aspect of the left kidney measuring 1.9 x 1.1 x 1.3 cm. No follow-up is recommended. It is unchanged compared to prior examinations. Nephrolithiasis: No. Other findings: Note is again made of a left septated adnexal cyst. This can be seen on the CT scan of the abdomen and pelvis from 09/25/2022. Bladder:There is a Randle catheter and a small volume urinary bladder. This limits evaluation of the urinary bladder. Ureteral jets: Right: Not visualized on this examination. Left: Not visualized on this examination. Prevoid vol:35 cc Postvoid vol:0 cc Renal color flow: Symmetric and within normal limits. IMPRESSION: 1. No evidence of a renal mass, calculus or hydronephrosis. 2. The urinary bladder cannot be adequately evaluated due to the presence of a Randle catheter and sma ll volume. 3. Stable left adnexal cystic lesion. DATA REPOSITORY:
[2023-01-06 07:31] LABS: Abs Immature Grans 0.07 10^3/uL (0.0-0.06); Absolute Eosinophil Count 0.63 10^3/uL (0.0-0.7); Absolute Lymphocyte Count 3.54 10^3/uL (1.2-3.4); Basophils % 0.7; Eosinophils % 4.7; HCT 43.7 % (36.0-46.0); HGB 13.2 g/dL (11.2-15.7); Immature Grans % 0.5; Lymphocytes % 26.5; MCH 26.8 pg (27.0-33.0); MCHC 30.2 % (32.0-36.0); MCV 89 fL (80-95); MPV 9.9 fL (8.0-11.0); Monocytes % 8.5; Neutrophils % 59.1; Platelet Count 170 10^3/uL (130-400); RBC 4.92 10^6/uL (3.93-5.22); RDW 14.1 % (11.7-14.6); RDW-SD 45.7 fL; WBC 13.36 10^3/uL (4.4-10.8)
[2023-01-06 07:32] LABS: Absolute Basophil Count 0.09 10^3/uL (0.0-0.2); Absolute Monocyte Count 1.14 10^3/uL (0.1-0.8)
[2023-01-06 07:48] LABS: Anion Gap 8.4 mmol/L (3-11); BUN 29 mg/dL (7-18); CO2 27.6 mmol/L (21.0-32.0); Chloride 100 mmol/L (98-107); Estimated GFR 16.12 (mL/min/1.73m2); Glucose 113 mg/dL (74-106); Magnesium 1.5 mg/dL (1.8-2.4); Potassium 4.4 mmol/L (3.5-5.1); Sodium 136 mmol/L (136-145)
--- NOTE | 2023-01-06 08:45 | PDOC.CMPRO ---
Date of service: 01/06/23 Time of Service: 08:45 Care Management Progress Note Progress Note Text Progress Note Text: S/O:Raven was lying in bed when CM met with her. She was drowsy and responded minimally to questions. She stated she felt alright when asked. Raven has not been feeding herself or participating in her care. She refused to work with PT. They have tried unsuccessfully to complete an evaluation for her three times today. Raven continues to refuse to consider SNF. A:Raven is a 72 year old woman admitted on 01/04/23 with altered mental status P:Anticipate Raven will return home, possibly with new home health services. She will follow up with her PCP and plan of care and transport with family vs RCT. CM will support Raven and assess for discharge planning needs.
[2023-01-06] MEDS: Insulin Glargine 300 UNITS/3 ML PEN 25 UNITS SC (08:48)
[2023-01-06] MEDS: Metoprolol CR 25 MG TABCR PO (08:48)
[2023-01-06] MEDS: DULoxetine 30 MG CAP 60 MG PO ×2 (08:48→21:09)
[2023-01-06] MEDS: Omeprazole 20 MG CAPCR PO (08:48)
[2023-01-06] MEDS: Lisinopril 10 MG TAB PO (08:48)
[2023-01-06] MEDS: Cholecalciferol (Vitamin D3) 1,000 UNIT TAB 4000 UNITS PO (08:48)
[2023-01-06] MEDS: Aspirin 81 MG CHEW PO (08:48)
[2023-01-06] MEDS: Pregabalin 50 MG CAP PO ×3 (08:48→21:09)
[2023-01-06] MEDS: Magnesium Oxide 400 MG TAB PO ×2 (08:48→21:09)
[2023-01-06] MEDS: Nystatin POWDER 60 GM JAR TP ×2 (08:50→14:45)
[2023-01-06] MEDS: MAGNESIUM SULFATE 2 GM/50 ML BAG IVPB (11:38)
[2023-01-06] MEDS: Normal Saline Flush 10 ML SYR IVP (11:39)
--- NOTE | 2023-01-06 11:56 | STREC_ITS ---
Date of service: 01/06/23 Time of Service: 11:56 Speech Therapy Recommendations Report ST Recommendations: Non-treatment note: Consult received, chart reviewed. CVA ruled out as cause of AMS, patient now being worked up for ?UTI and med rec will be performed. Per nursing and hospitalist team, patient is currently obtunded and unable to participate in evaluation. PT has been unable to work with patient thus far. When able to eat, she has been tolerating pureed diet without difficulty. COMMERCIAL SERVICE TECHNICIAN will continue to follow patient status and communicate with medical team in order to perform bedside swallow evaluation when appropriate. Coding
[2023-01-06] MEDS: Normal Saline 500 ML IV (12:43)
[2023-01-06] MEDS: Acetaminophen 325 MG TAB PO (12:54)
--- NOTE | 2023-01-06 13:03 | PGE_ITS ---
Date of Service Date of service: 01/06/23 Time of Service: 12:00 Assessment and Plan Assessment and plan (1) Acute on chronic kidney failure: Status: Acute Assessment and plan: creatinine with significant increase this morning up to 3.0 from 1.7 likely d/t poor po intake, will check FENA score. hold lisinopril, avoid nephrotoxic drugs and renal dose as needed. give fluid bolus and maintenance IV fluids. Most often her creatinine in our records are in the 2's. (2) Diabetes mellitus type 2: Status: Chronic Assessment and plan: On glipizide at home; hold until adequate oral intake established. Cont Lantus; may need to adjust. Add SS correction insulin dosing. Diabetic diet. (3) CHF (congestive heart failure): Status: Chronic Assessment and plan: Elevated BNP. Not hypoxic. CXR: Lungs are clear.? No infiltrates nor obvious pleural effusions. Monitor for volume overload. (4) Morbid obesity: Status: Chronic Assessment and plan: Likely OHS. (5) Hyperlipidemia: Status: Chronic Assessment and plan: continue home simvastatin. (6) Depression: Status: Chronic Assessment and plan: Continue home duloxetine. (7) COPD (chronic obstructive pulmonary disease): Status: Chronic Assessment and plan: Former smoking , no formal testing available - albuterol prn (8) Discharge planning issues: Status: Acute Assessment and plan: Full Code. Care management will be involved. palliative consult placed discussed with Dr Luna Subjective Subjective Patient reports: denies tolerating liquids well or tolerating a regular diet Interval history since last seen: patient continues to remain weak and unengaged. poor po intake, not working with PT, intermittent increased confusion. Exam Const General: disheveled, frail appearing and ill appearing chronically Nutritional Appearance: obese Orientation: alert, awake and confused [facility] Head: normal to inspection, normocephalic and atraumatic Resp Effort & Inspection: normal respiratory effort Auscultation: diminished lung sounds (throughout) Cardio Rate: regular rate Rhythm: regular rhythm GI Inspection: normal to inspection and obesity Palpation: soft Psych Mental Status: other (Cognitive impairment at baseline) Speech and Movement: speech and movement normal Mood: other (Cognitive impairment at baseline) Affect: normal affect Objective Last Vital Signs Temp 36.4 C 01/07/23 12:57 Pulse 83 01/07/23 12:57 Resp 20 01/07/23 12:57 BP 97/58 L 01/07/23 12:57 Pulse Ox 92 01/07/23 12:57 Laboratory Results - last 24 hr 01/07/23 01/07/23 01/07/23 03:13 06:20 06:20 WBC 10.93 H RBC 4.42 Hgb 12.1 Hct 39.9 MCV 90 MCH 27.4 MCHC 30.3 L RDW 14.3 Plt Count 129 L MPV 9.6 Immature Gran % 0.5 Neutrophils % 63.6 Lymphocytes % 22.0 Monocytes % 7.1 Eosinophils % 6.3 Basophils % 0.5 Nucleated RBC % 0.0 Absolute Neutrophils 6.95 H Absolute Lymphocytes 2.40 Absolute Monocytes 0.78 Absolute Eosinophils 0.69 Absolute Basophils 0.05 Sodium 134 L Potassium 4.3 Chloride 101 Carbon Dioxide 27.2 Anion Gap 5.8 BUN 35 H Creatinine 4.0 H* D Est GFR (CKD-EPI 2020) 11.41 Glucose 114 H Calcium 8.6 Magnesium 1.9 Urine Color Yellow Urine Clarity Cloudy Urine pH 5.0 Ur Specific [place] >= 1.030 H Urine Protein 100 H Urine Ketones Trace H Urine Blood Moderate H Urine Nitrite Negative Urine Bilirubin Moderate H Urine Urobilinogen 0.2 Ur Leukocyte Esterase Large H Urine RBC 10-20 H Urine WBC 10-20 H Ur Epithelial Cells Few Urine Crystals Negative Urine Bacteria Few Urine Casts Negative Urine Mucus Negative Ur Culture Indicated? Yes Urine Glucose Negative Time Spent with Patient Time Spent with Patient: 25-34 minutes Time was spent: preparing to see the patient(eg.review tests), obtaining and/or reviewing separately otained hiistory, ordering medications,tests, procedures, referring, communicating with other health acute care nursing assistant and counseling the patient
--- NOTE | 2023-01-06 14:38 | PCNE_ITS ---
Date of service: 01/06/23 Time of Service: 14:38 History of Present Illness Narrative: Raven was seen in her room at [facility]. She was falling asleep during the visit. She did not know where she was, she knew she was in the hospital but could not name the town or the hospital. Conversation with Marcia over the phone: Her daughter, Marcia feels she would normally be able to state where she is. She states she lives at home with Rodolfo, her boyfriend, who provides care for her. Marcia reports that Rodolfo is elderly and has health problems. She would prefer that her mother go to an assisted living facility/SNF but Raven refuses. Reviewed CODE status. Raven is not clear about CODE STATUS. She give different answers depending on how the questions are presented. She has AD that state she is a FULL CODE. Discussed with her daughter. Marcia reports that it is typical for Raven to vascilate between wanting to be a full code and wanting to be a DNR/DNI. Marcia is aware that she and her sisters will be relied upon to make decisions for when she is no longer able to make decisions. Discussed that she is not able to make decisions today but she is acutely being treated in the hospital. Agree to give her time to determine what direction she is going in. Marcia describes that prior to Rodolfo calling EMS, she reported BATISTA and said her left side felt funny. Her speech was unclear and she was not making sense. She was agitated, which is why she received lorazepam. Discussed that MRI brain did not reveal CVA but TIA would not show on imaging. Also reviewed that lorazepam can take time to leave system in elderly with renal dysfunction. Also reviewed labs showing worsening renal function and that renal US is pending. Her granddaughter, Aide visited briefly during the visit. She deferred to her mother, Marcia to give information as she was not exactly sure what was going on with Raven. Aide also verbalized concern about Rodolfo being able to manage caring for Raven due to his own health problems. Assessment and Plan Assessment and plan (1) Altered mental status: Status: Acute Assessment and plan: Medicl team initially concerned with CVA but ruled out on MRI. ?TIA, ? mediation effect r/t lorazepam. She has an elevated WBC count. No fever though reportedly had one at home. Procalcitonin 0.1. Monitor for any development of infection or recurrent altered mental status. (2) Chronic kidney disease: Status: Chronic Assessment and plan: Creatinine worsening daily, 3 today, has been >4 in the past. Renal US pending. (3) Diabetes mellitus type 2: Status: Chronic Assessment and plan: She is on a diabetic diet, she has not been eating well while hospitalized. (4) CHF (congestive heart failure): Status: Chronic Assessment and plan: Elevated BNP. Not hypoxic. CXR: Lungs are clear.? No infiltrates nor obvious pleural effusions. (5) Morbid obesity: Status: Chronic Assessment and plan: Likely OHS. (6) Hyperlipidemia: Status: Chronic Assessment and plan: On home simvastatin. (7) Depression: Status: Chronic Assessment and plan: On home duloxetine. (8) COPD (chronic obstructive pulmonary disease): Status: Chronic Assessment and plan: Former smoking , no formal testing available - albuterol prn (9) Deficit in activities of daily living (ADL): Status: Acute (10) Counseling regarding goals of care: Status: Acute Assessment and plan: She has been seen by Yelena Barreto NP Palliative in the past. She has AD that state she is a FULL CODE. She does not have the capacity to discuss code status today. She gives contradicting answers depending on the question. Spoke to her daughter, Marcia who states it is typical for her to change her mind frequently. She declines SNF and HH during our visit- Marcia states this is typical for her as well. Marcia would prefer for her to go to SNF. She does not think Bill can continue taking care of her due to his own medical problems. Discussed that MRI brain did not reveal CVA but TIA would not show on imaging. Also reviewed that lorazepam can take time to leave system in elderly with renal dysfunction. Also reviewed labs showing worsening renal function and that renal US is pendi ng. Marcia is aware that she and her sisters will be relied upon to make decisions for when she is no longer able to make decisions. Discussed that she is not able to make decisions today but she is acutely being treated in the hospital. Agree to give her time to determine what direction she is going in. Marcia and her sisters are her HCA and want her to have a good quality of life. No change to her CODE status today. Will give time and Palliative will continue to follow along. Review of Systems Narrative: unable due to mental status and falling asleep during the visit. [facility] All Active Problems Discharge planning issues (Acute) Acute on chronic kidney failure (Acute) Counseling regarding goals of care (Acute) Altered mental status (Acute) Fall as cause of accidental injury at home as place of occurrence (Acute) Contusion of left lower extremity (Acute) Back contusion (Acute) Fall at home (Acute) Hypomagnesemia (Acute) UTI (urinary tract infection) (Acute) Acute CVA (cerebrovascular accident) (Acute) Encounter for counseling regarding advance directives (Acute) Full code status (Acute) Deficit in activities of daily living (ADL) (Acute) Sedentary lifestyle (Acute) Need for home health care (Acute) Impaired instrumental activities of daily living (Acute) Yeast vaginitis (Acute) Pain (Acute) COPD (chronic obstructive pulmonary disease) (Chronic) Acute UTI (Acute) CHF (congestive heart failure) (Chronic) Fall (Acute) Anemia (Chronic) Mass of left ovary (Acute) Chronic kidney disease (Chronic) Essential hypertension (Chronic) Diabetes mellitus type 2 (Chronic) On Metformin Back pain (Acute) Morbid obesity (Chronic) Hyperlipidemia (Chronic) Depression (Chronic) Vitamin D deficiency (Chronic) History of colostomy (Chronic) Medical History Anemia (05/03/13) Hemoglobin 8.2. Anemia Depression Diabetes mellitus Diverticulitis Recurrent. S/p high risk hemicolectomy in the setting of sepsis and hypotension 03/22/2013. Complication of a stomal leak resulting in an abdominal abscess. Readmitted to [facility] 05/03/13 emergently with sepsis syndrome and had an abdominal abscess drained. Completed rehab at [facility] with discharge most recently on after extensive dressing care of the abdominal wound with a wound VAC. 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 Leukocytosis. Intermittently febrile. Fall Gastroesophageal reflux disease GERD (gastroesophageal reflux disease) Hepatitis C Recent negative viral count. History of breast cancer History of hepatitis C History of incisional hernia History of renal failure Migraine Morbid obesity Osteopenia Palliative care patient Vitamin D deficiency Surgical History Colectomy H/O mastectomy Hernia Repair, Incisional x2 S/P cholecystectomy Family History Mother No problems noted. Father No problems noted. 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 Exam Narrative Exam Narrative: General: pleasant, overweight, elderly female, laying in bed, falling asleep dur ing visit. She knew she was in a hospital but did not know the name of the hospital or town, she knew it was Dec, 2022. She did not give clear answers to questions and gave contradicting answers at times. HEENT: normocephalic, atraumatic, eyes closed for most of the visit, mm slightly dry. Respiratory: respirations appear even and unlabored. Extremities: she did not move in the bed during the visit. Results Last Vital Signs Temp 36.9 C 01/06/23 07:36 Pulse 91 H 01/06/23 07:36 Resp 22 01/06/23 07:36 BP 120/65 01/06/23 07:36 Pulse Ox 94 01/06/23 07:36 Labs 01/09/23 06:53 01/09/23 06:53 Labs: Laboratory Results - last 24 hr 01/06/23 01/06/23 07:20 07:20 WBC 13.36 H RBC 4.92 Hgb 13.2 Hct 43.7 MCV 89 MCH 26.8 L MCHC 30.2 L RDW 14.1 Plt Count 170 MPV 9.9 Immature Gran % 0.5 Neutrophils % 59.1 Lymphocytes % 26.5 Monocytes % 8.5 Eosinophils % 4.7 Basophils % 0.7 Nucleated RBC % 0.0 Absolute Neutrophils 7.90 H Absolute Lymphocytes 3.54 H Absolute Monocytes 1.14 H Absolute Eosinophils 0.63 Absolute Basophils 0.09 Sodium 136 Potassium 4.4 Chloride 100 Carbon Dioxide 27.6 Anion Gap 8.4 BUN 29 H Creatinine 3.0 H D Est GFR (CKD-EPI 2020) 16.12 Glucose 113 H Calcium 9.0 Magnesium 1.5 L
[2023-01-06] MEDS: Normal Saline 1,000 ML 150 ML IV (14:47)
--- NOTE | 2023-01-06 15:39 | PT.INNT ---
Date of service: 01/06/23 Time of Service: 15:39 PT Notes Visit Reasons: Cerebrovascular accident Several attempts have been made to work with patient but she has refused all of them. Unwilling to participate in PT. DIALLO Mota and Dr. Luna made aware. D/C order for skilled services due to patient's 5 consecutive refusals.
[2023-01-06] MEDS: QUEtiapine 25 MG TAB 12.5 MG PO (21:09)
[2023-01-06] MEDS: traMADol 50 MG TAB 100 MG PO (21:09)
[2023-01-06] MEDS: Simvastatin 40 MG TAB PO (21:09)
[2023-01-07] VITALS (11 sets, daily range): BP systolic 91–118; BP diastolic 52–80; PULSE 68–88; RESP 14–22; TEMP 36.2–37.9; O2SAT 91–97
[2023-01-07 03:30] LABS: Bilirubin Moderate (Negative); Blood Moderate (Negative); Clarity Cloudy (Clear); Glucose Negative (Negative); Ketones Trace mg/dL (Negative); Leukocyte Esterase Large (Negative); Nitrite Negative (Negative); Specific Gravity >= 1.030 (1.005-1.025); Urobilinogen 0.2 mg/dL (Up to 0.2)
[2023-01-07 03:46] LABS: Bacteria Few HPF (Negative); C & S Indicated? Yes; Casts Negative LPF (Negative); Crystals Negative HPF (Negative); Epithelial Cells Few HPF (Negative); Mucus Negative (Negative)
[2023-01-07 06:30] LABS: Abs Immature Grans 0.05 10^3/uL (0.0-0.06); Absolute Eosinophil Count 0.69 10^3/uL (0.0-0.7); Absolute Monocyte Count 0.78 10^3/uL (0.1-0.8); Absolute Neutrophil Count 6.95 10^3/uL (1.2-6.7); Basophils % 0.5; Eosinophils % 6.3; HCT 39.9 % (36.0-46.0); HGB 12.1 g/dL (11.2-15.7); Immature Grans % 0.5; MCH 27.4 pg (27.0-33.0); MCHC 30.3 % (32.0-36.0); MCV 90 fL (80-95); MPV 9.6 fL (8.0-11.0); Monocytes % 7.1; Neutrophils % 63.6; Platelet Count 129 10^3/uL (130-400); RBC 4.42 10^6/uL (3.93-5.22); RDW 14.3 % (11.7-14.6); RDW-SD 47.4 fL; WBC 10.93 10^3/uL (4.4-10.8)
[2023-01-07 06:33] LABS: Absolute Basophil Count 0.05 10^3/uL (0.0-0.2)
[2023-01-07 06:49] LABS: Anion Gap 5.8 mmol/L (3-11); BUN 35 mg/dL (7-18); CO2 27.2 mmol/L (21.0-32.0); Calcium 8.6 mg/dL (8.5-10.1); Chloride 101 mmol/L (98-107); Estimated GFR 11.41 (mL/min/1.73m2); Glucose 114 mg/dL (74-106); Magnesium 1.9 mg/dL (1.8-2.4); Potassium 4.3 mmol/L (3.5-5.1); Sodium 134 mmol/L (136-145)
[2023-01-07] MEDS: Normal Saline 1,000 ML 150 ML IV (07:10)
[2023-01-07] MEDS: Cholecalciferol (Vitamin D3) 1,000 UNIT TAB 4000 UNITS PO (08:11)
[2023-01-07] MEDS: DULoxetine 30 MG CAP 60 MG PO (08:11)
[2023-01-07] MEDS: Metoprolol CR 25 MG TABCR PO (08:11)
[2023-01-07] MEDS: Pregabalin 50 MG CAP PO ×2 (08:12→14:06)
[2023-01-07] MEDS: Aspirin 81 MG CHEW PO (08:12)
[2023-01-07] MEDS: Omeprazole 20 MG CAPCR PO (08:12)
[2023-01-07] MEDS: Normal Saline 250 ML 500 ML IV (08:13)
[2023-01-07] MEDS: Insulin Glargine 300 UNITS/3 ML PEN 25 UNITS SC (09:25)
[2023-01-07] MEDS: Nystatin POWDER 60 GM JAR TP ×3 (09:33→21:14)
--- NOTE | 2023-01-07 11:07 | TELEP.MEDR_ITS ---
Date of service: 01/07/23 Time of Service: 11:07 Telepharmacy Home Med Rec Allergies Allergies: epinephrine Allergy (Severe, Unverified 12/28/22 22:12) chest pain/heart attack Penicillins Allergy (Intermediate, Unverified 12/28/22 22:12) rsh fever banana [Banana] Allergy (Unverified 12/28/22 22:12) NSAIDS (Non-Steroidal Anti-Inflamma Allergy (Unverified 12/28/22 22:12) unkown Sulfa (Sulfonamide Antibiotics) Allergy (Unverified 12/28/22 22:12) rash,fever Tetracyclines Allergy (Unverified 12/28/22 22:12) rash fever sodium polystyrene sulfonate [From Kayexalate] Adverse Reaction (Severe, Unverified 12/28/22 22:12) tachy/dyspnea/rash Niacin Preparations Adverse Reaction (Intermediate, Unverified 12/28/22 22:12) flushing Interview Person Interviewed: * Marcia (daughter) Quality Quality of Interview/Accuracy of Medication List: Fair (-Marcia read bubble pack and Rx labels to me, she does not help Raven at home with her medications) Sources Sources used to compile medication list: [facility] [employer] [facility] Medication [facility], [facility] and [facility] Changes made to Home Medication List: ADDITIONS: * Humalog sliding scale (12-25 units) subq TID DELETIONS: * Cipro (treatment for UTI in past month) CHANGES: * Quetiapine 25mg (0.5 x50mg tab) PO qHS * Lantus 56 units subq BID (per Rx label dated 08/17/22, unable to confirm this dose with the patient) Additional Notes Additional Notes: * Marcia is not intimately familiar with the medications that Raven takes at home- she just went to Raven's house and read the prescription labels and bubble pack labels to me. Recommended Changes Recommended Changes(reason for recommendation): * SANDY (SCr: 4) --> reduce lyrica to q24hr frequency; tramadol dose may need lowering to 50mg if patient experiencing adverse effects (excess sedation, somnolence, seratonin syndrome, low RR, etc) Attestation: The home medication list is now updated to the best of my knowledge and is ready to be reconciled by the provider. Please contact the [facility] Medication Reconciliation Pharmacist at for any questions.
[2023-01-07] MEDS: Normal Saline 500 ML IV (11:15)
[2023-01-07] MEDS: cefTRIAXone 1 GM/50 ML BAG IVPB (11:36)
[2023-01-07] MEDS: ALBUMIN HUMAN 25 GM/100 ML BTL IVPB (11:44)
[2023-01-07] MEDS: Normal Saline 1,000 ML 200 ML IV ×3 (12:18→21:37)
--- NOTE | 2023-01-07 13:23 | PGE_ITS ---
Date of Service Date of service: 01/07/23 Time of Service: 13:24 Assessment and Plan Assessment and plan (1) Acute on chronic kidney failure: Status: Acute Assessment and plan: creatinine continues to rise to 4.0 from 3.0 yesterday likely d/t poor po intake but expected to have improved with IV administration of fluids, will closely review of fluid admin and I/O, additionally still awaiting nursing to collect UA for FENA score, renal ultrasound unremarkable, UA positive for UTI continue to hold lisinopril, avoid nephrotoxic drugs and renal dose as needed. give additional fluid bolus and maintenance IV fluids, will increase rate, Most often her creatinine in our records are in the 2's. (2) UTI (urinary tract infection): Status: Acute Assessment and plan: urine culture pending will give ceftriaxone 1 gm IVPB day 1 will need catheter change (3) Diabetes mellitus type 2: Status: Chronic Assessment and plan: On glipizide at home; hold until adequate oral intake established. Cont Lantus; may need to adjust. Add SS correction insulin dosing. Diabetic diet. (4) CHF (congestive heart failure): Status: Chronic Assessment and plan: Elevated BNP. Not hypoxic. CXR: Lungs are clear.? No infiltrates nor obvious pleural effusions. Monitor for volume overload. (5) Morbid obesity: Status: Chronic Assessment and plan: Likely OHS. (6) Hyperlipidemia: Status: Chronic Assessment and plan: continue home simvastatin. (7) Depression: Status: Chronic Assessment and plan: Continue home duloxetine. (8) COPD (chronic obstructive pulmonary disease): Status: Chronic Assessment and plan: Former smoking , no formal testing available - albuterol prn (9) Discharge planning issues: Status: Acute Assessment and plan: Full Code. Care management will be involved. palliative consult placed discussed with Dr Iqbal Subjective Subjective Patient reports: denies tolerating liquids well or tolerating a regular diet Interval history since last seen: continues to have poor po intake Exam Const General: disheveled, frail appearing and ill appearing chronically Nutritional Appearance: obese Orientation: alert, awake and confused [facility] Head: normal to inspection, normocephalic and atraumatic Resp Effort & Inspection: normal respiratory effort Auscultation: diminished lung sounds (throughout) Cardio Rate: regular rate Rhythm: regular rhythm GI Inspection: normal to inspection and obesity Palpation: soft Psych Mental Status: other (Cognitive impairment at baseline) Speech and Movement: speech and movement normal Mood: other (Cognitive impairment at baseline) Affect: normal affect Objective Last Vital Signs Temp 36.4 C 01/07/23 12:57 Pulse 83 01/07/23 12:57 Resp 20 01/07/23 12:57 BP 97/58 L 01/07/23 12:57 Pulse Ox 92 01/07/23 12:57 Laboratory Results - last 24 hr 01/07/23 01/07/23 01/07/23 03:13 06:20 06:20 WBC 10.93 H RBC 4.42 Hgb 12.1 Hct 39.9 MCV 90 MCH 27.4 MCHC 30.3 L RDW 14.3 Plt Count 129 L MPV 9.6 Immature Gran % 0.5 Neutrophils % 63.6 Lymphocytes % 22.0 Monocytes % 7.1 Eosinophils % 6.3 Basophils % 0.5 Nucleated RBC % 0.0 Absolute Neutrophils 6.95 H Absolute Lymphocytes 2.40 Absolute Monocytes 0.78 Absolute Eosinophils 0.69 Absolute Basophils 0.05 Sodium 134 L Potassium 4.3 Chloride 101 Carbon Dioxide 27.2 Anion Gap 5.8 BUN 35 H Creatinine 4.0 H* D Est GFR (CKD-EPI 2020) 11.41 Glucose 114 H Calcium 8.6 Magnesium 1.9 Urine Color Yellow Urine Clarity Cloudy Urine pH 5.0 Ur Specific Colp >= 1.030 H Urine Protein 100 H Urine Ketones Trace H Urine Blood Moderate H Urine Nitrite Negative Urine Bilirubin Moderate H Urine Urobilinogen 0.2 Ur Leukocyte Esterase Large H Urine RBC 10-20 H Urine WBC 10-20 H Ur Epithelial Cells Few Urine Crystals Negative Urine Bacteria Few Urine Casts Negative Urine Mucus Negative Ur Culture Indicated? Yes Urine Glucose Negative Time Spent with Patient Time Spent with Patient: 35-49 minutes Time was spent: preparing to see the patient(eg.review tests), obtaining and/or reviewing separately otained hiistory, ordering medications,tests, procedures, referring, communicating with other health medicare contact specialist, indepentently interpreting results and counseling the patient
[2023-01-07 19:02] LABS: Creatinine,Urine 111.35 mg/dL; Sodium, Urine 34 mmol/L
--- NOTE | 2023-01-07 19:31 | NUR.NOTE ---
Upon report it was brought to my attention that I had missed charting on patients fluids overnight 01/06. An RN was here to place a midline at shift change 01/06. it took him until 2049 to complete this task as patient was a hard stick. Fluids restarted a few minutes after new piv placement. 2109, in attempting to chart this retroactively I believe it was incorrectly imputted. Fluids ran at 150ml/hr from 2109 to 199, and then when it ran out around 229 bag was replaced. Patient was on fluids at 150/hr throughout night until shift change. I am unable to reflect this on the mar, likely due to user error.
[2023-01-07] MEDS: traMADol 50 MG TAB 100 MG PO (21:13)
[2023-01-07] MEDS: QUEtiapine 25 MG TAB 12.5 MG PO (21:14)
[2023-01-07] MEDS: Magnesium Oxide 400 MG TAB PO (21:14)
[2023-01-07] MEDS: Simvastatin 40 MG TAB PO (21:14)
[2023-01-08] VITALS (8 sets, daily range): BP systolic 107–147; BP diastolic 54–77; PULSE 79–83; RESP 14–20; TEMP 36.2–36.8; O2SAT 91–98
[2023-01-08] MEDS: Normal Saline 1,000 ML 200 ML IV (07:21)
[2023-01-08 08:40] LABS: Abs Immature Grans 0.03 10^3/uL (0.0-0.06); Absolute Basophil Count 0.04 10^3/uL (0.0-0.2); Absolute Eosinophil Count 0.53 10^3/uL (0.0-0.7); Absolute Lymphocyte Count 1.09 10^3/uL (1.2-3.4); Absolute Monocyte Count 0.44 10^3/uL (0.1-0.8); Absolute Neutrophil Count 5.71 10^3/uL (1.2-6.7); Basophils % 0.5; Eosinophils % 6.8; HCT 36.4 % (36.0-46.0); HGB 10.8 g/dL (11.2-15.7); Immature Grans % 0.4; Lymphocytes % 13.9; MCH 27.3 pg (27.0-33.0); MCHC 29.7 % (32.0-36.0); MCV 92 fL (80-95); MPV 10.2 fL (8.0-11.0); Monocytes % 5.6; Neutrophils % 72.8; Platelet Count 117 10^3/uL (130-400); RBC 3.96 10^6/uL (3.93-5.22); RDW 14.1 % (11.7-14.6); RDW-SD 48.1 fL; WBC 7.84 10^3/uL (4.4-10.8)
[2023-01-08 08:41] LABS: Anion Gap 9.5 mmol/L (3-11); BUN 30 mg/dL (7-18); CO2 22.5 mmol/L (21.0-32.0); Calcium 7.9 mg/dL (8.5-10.1); Chloride 113 mmol/L (98-107); Estimated GFR 24.73 (mL/min/1.73m2); Glucose 97 mg/dL (74-106); Magnesium 1.8 mg/dL (1.8-2.4); Potassium 5.2 mmol/L (3.5-5.1); Sodium 145 mmol/L (136-145)
[2023-01-08 08:45] LABS: CREATININE 2.1 mg/dL (0.55-1.02)
[2023-01-08] MEDS: Cholecalciferol (Vitamin D3) 1,000 UNIT TAB 4000 UNITS PO (09:26)
[2023-01-08] MEDS: Omeprazole 20 MG CAPCR PO (09:26)
[2023-01-08] MEDS: Aspirin 81 MG CHEW PO (09:26)
[2023-01-08] MEDS: Magnesium Oxide 400 MG TAB PO ×2 (09:27→19:58)
[2023-01-08] MEDS: Pregabalin 25 MG CAP 75 MG PO (09:27)
[2023-01-08] MEDS: DULoxetine 30 MG CAP 60 MG PO (09:27)
[2023-01-08] MEDS: Metoprolol CR 25 MG TABCR PO (09:27)
[2023-01-08] MEDS: Nystatin POWDER 60 GM JAR TP ×3 (09:28→20:00)
[2023-01-08] MEDS: cefTRIAXone 1 GM/50 ML BAG IVPB (09:28)
[2023-01-08] MEDS: Insulin Glargine 300 UNITS/3 ML PEN 25 UNITS SC ×2 (09:55→19:59)
--- NOTE | 2023-01-08 10:33 | PGE_ITS ---
Date of Service Date of service: 01/08/23 Time of Service: 10:33 Assessment and Plan Assessment and plan (1) Acute on chronic kidney failure: Status: Acute Assessment and plan: creatinine down from 4.0 yesterday to 2.1 today renal ultrasound unremarkable, UA positive for UTI continue to hold lisinopril, avoid nephrotoxic drugs and renal dose as needed. discontinue maintenance IV fluids, currently ~ 50 ml/h min output Most often her creatinine in our records are in the 2's. (2) UTI (urinary tract infection): Status: Acute Assessment and plan: urine culture pending will give ceftriaxone 1 gm IVPB day 2 Asked nursing to change indwelling urinary catheter (3) Diabetes mellitus type 2: Status: Chronic Assessment and plan: On glipizide at home; hold until adequate oral intake established. Cont Lantus; may need to adjust. Add SS correction insulin dosing. Diabetic diet. (4) CHF (congestive heart failure): Status: Chronic Assessment and plan: Elevated BNP. Not hypoxic. CXR: Lungs are clear.? No infiltrates nor obvious pleural effusions. Monitor for volume overload. (5) Morbid obesity: Status: Chronic Assessment and plan: Likely OHS. (6) Hyperlipidemia: Status: Chronic Assessment and plan: continue home simvastatin. (7) Depression: Status: Chronic Assessment and plan: Continue home duloxetine. (8) COPD (chronic obstructive pulmonary disease): Status: Chronic Assessment and plan: Former smoking , no formal testing available - albuterol prn (9) Discharge planning issues: Status: Acute Assessment and plan: Full Code. Care management will be involved. palliative consult placed discussed with Dr Luna Subjective Subjective Patient reports: no new complaints Interval history since last seen: Mostly sleeping today, but alert to voice. Around 5 pm, awake, alert, eating supper, she know where she is and why she is here. She is denying pain. Remains sleepy, falling asleep during assessment. Exam Const General: disheveled, frail appearing and ill appearing chronically Nutritional Appearance: obese Orientation: alert, awake and confused [facility] Head: normal to inspection, normocephalic and atraumatic Resp Effort & Inspection: normal respiratory effort Auscultation: diminished lung sounds (throughout) Cardio Rate: regular rate Rhythm: regular rhythm GI Inspection: normal to inspection and obesity Palpation: soft Psych Mental Status: other (Cognitive impairment at baseline) Speech and Movement: speech and movement normal Mood: other (Cognitive impairment at baseline) Affect: normal affect Objective Last Vital Signs Temp 36.5 C 01/08/23 07:20 Pulse 82 01/08/23 07:20 Resp 14 01/08/23 07:20 BP 107/54 L 01/08/23 07:20 Pulse Ox 91 L 01/08/23 07:20 Laboratory Results - last 24 hr 01/07/23 01/08/23 01/08/23 18:40 08:00 08:00 WBC RBC Hgb Hct MCV MCH MCHC RDW Plt Count MPV Immature Gran % Neutrophils % Lymphocytes % Monocytes % Eosinophils % Basophils % Nucleated RBC % Absolute Neutrophils Absolute Lymphocytes Absolute Monocytes Absolute Eosinophils Absolute Basophils Sodium 145 D Potassium 5.2 H Chloride 113 H Carbon Dioxide 22.5 Anion Gap 9.5 BUN 30 H Creatinine 2.1 H D Est GFR (CKD-EPI 2020) 24.73 Glucose 97 Calcium 7.9 L Magnesium 1.8 Cancelled Ur Random Creatinine 111.35 Ur Random Sodium 34 01/08/23 08:20 WBC 7.84 RBC 3.96 Hgb 10.8 L Hct 36.4 MCV 92 MCH 27.3 MCHC 29.7 L RDW 14.1 Plt Count 117 L MPV 10.2 Immature Gran % 0.4 Neutrophils % 72.8 Lymphocytes % 13.9 Monocytes % 5.6 Eosinophils % 6.8 Basophils % 0.5 Nucleated RBC % 0.0 Absolute Neutrophils 5.71 Absolute Lymphocytes 1.09 L Absolute Monocytes 0.44 Absolute Eosinophils 0.53 Absolute Basophils 0.04 Sodium Potassium Chloride Carbon Dioxide Anion Gap BUN Creatinine Est GFR (CKD-EPI 2020) Glucose Calcium Magnesium Ur Random Creatinine Ur Random Sodium Time Spent with Patient Time Spent with Patient: 25-34 minutes Time was spent: preparing to see the patient(eg.review tests), ordering medications,tests, procedures, referring, communicating with other health care transition mgr, indepentently interpreting results, counseling the patient and care coordination
[2023-01-08] MEDS: Heparin 5,000 UNITS/ML VIAL 5000 UNITS SC (12:44)
[2023-01-08] MEDS: QUEtiapine 25 MG TAB PO (22:31)
[2023-01-08] MEDS: Simvastatin 40 MG TAB PO (22:31)
[2023-01-08] MEDS: traMADol 50 MG TAB 100 MG PO (22:31)
--- NOTE | 2023-01-09 | NUR.NOTE ---
Nursing Note: Removed razor from patients room due to prior Code العلي/Silver incident during last admission less than two weeks ago and concerns regarding staff safety. Commode emptied of very large BM. Patient upset regarding removal of razor from room and reasoning was explained to him. Patient with extreme redness noted on face and upper body. Patient asked when his next Librium was due and explained that it was scheduled for QID or 4x/day and the next scheduled dose is at 8:30 am. Cleaned up floor from spilled coffee/hot chocolate knocked over accidentally by patient.
[2023-01-09] MEDS: Heparin 5,000 UNITS/ML VIAL 5000 UNITS SC ×3 (00:05→23:52)
[2023-01-09 07:00] VITALS: PULSE 83
[2023-01-09 07:06] LABS: Abs Immature Grans 0.02 10^3/uL (0.0-0.06); Absolute Basophil Count 0.05 10^3/uL (0.0-0.2); Absolute Eosinophil Count 0.57 10^3/uL (0.0-0.7); Absolute Lymphocyte Count 1.43 10^3/uL (1.2-3.4); Absolute Neutrophil Count 4.33 10^3/uL (1.2-6.7); Basophils % 0.7; Eosinophils % 8.3; HGB 11.5 g/dL (11.2-15.7); Immature Grans % 0.3; Lymphocytes % 20.7; MCH 27.6 pg (27.0-33.0); MCHC 30.3 % (32.0-36.0); MCV 91 fL (80-95); MPV 10.4 fL (8.0-11.0); Monocytes % 7.2; Neutrophils % 62.8; Platelet Count 135 10^3/uL (130-400); RBC 4.16 10^6/uL (3.93-5.22); RDW 14.2 % (11.7-14.6); RDW-SD 47.9 fL
[2023-01-09 07:15] LABS: Anion Gap 8.6 mmol/L (3-11); BUN 23 mg/dL (7-18); CO2 24.4 mmol/L (21.0-32.0); CREATININE 1.4 mg/dL (0.55-1.02); Calcium 8.8 mg/dL (8.5-10.1); Chloride 112 mmol/L (98-107); Estimated GFR 40.22 (mL/min/1.73m2); Glucose 91 mg/dL (74-106); Magnesium 1.7 mg/dL (1.8-2.4); Potassium 4.5 mmol/L (3.5-5.1); Sodium 145 mmol/L (136-145)
[2023-01-09 07:30] VITALS: BP 120/72; PULSE 86; RESP 18; TEMP 37.1; O2SAT 93
[2023-01-09] MEDS: Metoprolol CR 25 MG TABCR PO (07:58)
[2023-01-09] MEDS: Insulin Glargine 300 UNITS/3 ML PEN 25 UNITS SC ×2 (07:58→19:56)
[2023-01-09] MEDS: Aspirin 81 MG CHEW PO (07:58)
[2023-01-09] MEDS: Omeprazole 20 MG CAPCR PO (07:58)
[2023-01-09] MEDS: Cholecalciferol (Vitamin D3) 1,000 UNIT TAB 4000 UNITS PO (07:58)
[2023-01-09] MEDS: DULoxetine 30 MG CAP 60 MG PO (08:00)
[2023-01-09] MEDS: Pregabalin 25 MG CAP 75 MG PO (08:00)
[2023-01-09] MEDS: Nystatin POWDER 60 GM JAR TP ×3 (08:00→19:57)
[2023-01-09] MEDS: MAGNESIUM SULFATE 2 GM/50 ML BAG IVPB (08:03)
[2023-01-09] MEDS: Magnesium Chloride 64 MG TABCR PO ×2 (08:03→19:56)
--- NOTE | 2023-01-09 10:53 | W.PM.PROGNOT ---
Date of Service Date of service: 01/09/23 Time of Service: 10:53 Assessment and Plan Assessment and plan (1) Acute on chronic kidney failure: Status: Acute Assessment and plan: creatinine 1.4 renal ultrasound unremarkable, UA positive for UTI continue to hold lisinopril, avoid nephrotoxic drugs and renal dose as needed. (2) UTI (urinary tract infection): Status: Acute Assessment and plan: urine culture positive for Ecoli - sensitive to ceftriaxone Continue ceftriaxone 1 gm IVPB day 3 urinary catheter changed 01/08 (3) Diabetes mellitus type 2: Status: Chronic Assessment and plan: On glipizide at home; hold until adequate oral intake established. Cont Lantus; may need to adjust. Add SS correction insulin dosing. Diabetic diet. (4) CHF (congestive heart failure): Status: Chronic Assessment and plan: Elevated BNP. Not hypoxic. CXR: Lungs are clear.? No infiltrates nor obvious pleural effusions. Monitor for volume overload. (5) Hypomagnesemia: Status: Acute Assessment and plan: 1.7; repleted, monitor (6) Morbid obesity: Status: Chronic Assessment and plan: Likely OHS. (7) Hyperlipidemia: Status: Chronic Assessment and plan: continue home simvastatin. (8) Depression: Status: Chronic Assessment and plan: Continue home duloxetine. (9) COPD (chronic obstructive pulmonary disease): Status: Chronic Assessment and plan: Former smoking , no formal testing available - albuterol prn (10) Discharge planning issues: Status: Acute Assessment and plan: Full Code. Care management will be involved. palliative consult placed discussed with Dr Luna Subjective Subjective Patient reports: no new complaints, tolerating a regular diet and afebrile; denies diarrhea, vomiting or shortness of breath Interval history since last seen: Semifowlers in bed, awake and alert, knows where she is and states she is feeling much better, she looks better. Exam Const General: disheveled, frail appearing and ill appearing chronically Nutritional Appearance: obese Orientation: alert, awake and confused HENCA Head: normal to inspection, normocephalic and atraumatic Resp Effort & Inspection: normal respiratory effort Auscultation: diminished lung sounds (throughout) Cardio Rate: regular rate Rhythm: regular rhythm GI Inspection: normal to inspection and obesity Palpation: soft Psych Mental Status: other (Cognitive impairment at baseline) Speech and Movement: speech and movement normal Mood: other (Cognitive impairment at baseline) Affect: normal affect Objective Last Vital Signs Temp 37.1 C 01/09/23 07:30 Pulse 86 01/09/23 07:30 Resp 18 01/09/23 07:30 BP 120/72 01/09/23 07:30 Pulse Ox 93 01/09/23 07:30 Laboratory Results - last 24 hr 01/09/23 01/09/23 06:53 06:53 WBC 6.90 RBC 4.16 Hgb 11.5 Hct 38.0 MCV 91 MCH 27.6 MCHC 30.3 L RDW 14.2 Plt Count 135 MPV 10.4 Immature Gran % 0.3 Neutrophils % 62.8 Lymphocytes % 20.7 Monocytes % 7.2 Eosinophils % 8.3 Basophils % 0.7 Nucleated RBC % 0.0 Absolute Neutrophils 4.33 Absolute Lymphocytes 1.43 Absolute Monocytes 0.50 Absolute Eosinophils 0.57 Absolute Basophils 0.05 Sodium 145 Potassium 4.5 Chloride 112 H Carbon Dioxide 24.4 Anion Gap 8.6 BUN 23 H Creatinine 1.4 H Est GFR (CKD-EPI 2020) 40.22 Glucose 91 Calcium 8.8 Magnesium 1.7 L Time Spent with Patient Time Spent with Patient: 25-34 minutes Time was spent: preparing to see the patient(eg.review tests), ordering medications,tests, procedures, referring, communicating with other health health care assistant, indepentently interpreting results, counseling the patient and care coordination
[2023-01-09] MEDS: cefTRIAXone 1 GM/50 ML BAG IVPB (10:56)
[2023-01-09 11:46] VITALS: BP 101/67; PULSE 80; RESP 18; TEMP 37.4; O2SAT 94
[2023-01-09 15:55] VITALS: BP 137/69; PULSE 80; RESP 14; TEMP 35.9; O2SAT 95
[2023-01-09 20:45] VITALS: BP 160/77; PULSE 85; RESP 17; TEMP 36.9; O2SAT 96
[2023-01-09] MEDS: traMADol 50 MG TAB 100 MG PO (21:47)
[2023-01-09] MEDS: QUEtiapine 25 MG TAB PO (21:48)
[2023-01-09] MEDS: Simvastatin 40 MG TAB PO (21:48)
[2023-01-10] MEDS: OLANZapine 5 MG TAB 2.5 MG PO (01:32)
--- NOTE | 2023-01-10 05:23 | NUR.NOTE ---
@ around 2330 pt was calling out BillRodolfo, on arriving to the pt's room, pt was seen with one leg hanging at the edge of the bed attempting to get up oob stating she has to pee. Pt was AAO only to self, very confuse and was agitated; tried to reorient pt and explained that it is ok to pee as pt has a queen in place, but was not successful. This RN, ESTHER Vega, and charge nurse Cindy repositioned pt and was able to get her settled. @ around 0025 pt attempted to get oob again, pt became even more agitated, was not redirectable, this RN stayed with pt as pt continues to attempt getting oob by herself. Pt is very weak and have not been participating with PT. The pt yanked her queen out while balloon was still inflated. MD was made aware and ordered olanzapine - administered see OCT, and pt was able to calm down. Reorient pt and offered to insert new queen catheter but pt denied, RN Colby sat with pt for about 15 minutes. @0300 pt was shouting and using curse words attempting to get up oob again. Pt was very confuse with visual hallucinations pointing to ceiling and stating she is seeing white horses; pt was able to void on bed oviedo but while attempting to repo pt had an episode of urine incontinence - bed change and repo was completed. Pt rested for about an hour then stated hallucinating again. Pt is currently resting in bed, alarm on, call joyner within reach, hourly rounding and safety maintained Nursing Note:
[2023-01-10 07:03] VITALS: BP 175/82; PULSE 93; RESP 18; TEMP 36.7; O2SAT 98
[2023-01-10] MEDS: Omeprazole 20 MG CAPCR PO (07:49)
[2023-01-10] MEDS: DULoxetine 30 MG CAP 60 MG PO (07:49)
[2023-01-10] MEDS: Nystatin POWDER 60 GM JAR TP ×3 (07:50→23:15)
[2023-01-10] MEDS: Pregabalin 25 MG CAP 75 MG PO (07:50)
[2023-01-10] MEDS: Cholecalciferol (Vitamin D3) 1,000 UNIT TAB 4000 UNITS PO (07:50)
[2023-01-10] MEDS: Magnesium Chloride 64 MG TABCR PO ×2 (07:50→23:15)
[2023-01-10] MEDS: Aspirin 81 MG CHEW PO (07:50)
[2023-01-10] MEDS: Metoprolol CR 25 MG TABCR PO (07:50)
[2023-01-10] MEDS: Insulin Glargine 300 UNITS/3 ML PEN 25 UNITS SC ×2 (07:52→23:20)
--- NOTE | 2023-01-10 10:07 | PT.INIE ---
PT Notes Visit Reasons: Cerebrovascular accident Physical Therapy Inpatient Initial Evaluation Date: 01/10/23 Referring Doctor: Leonie Rodriguez MD PT Orders: PT CONSULT: Eval & treat Precautions: Fall. Standard. Confusion. Patient Profile/Admitting Diagnosis: Raven is a 72 yo female that presented to the ER on 01/04/23 via EMS for altered mental status. She has been very confused over the last several days and mobility has declined. Nursing reports yesterday she was fairly clear and doing well, but confusion has resumed this morning. She has also been more agitated and wanting to get out of bed. PMHX: See EMR Social History/Home Situation: Lives with boyfriend in [facility], uses motorized wheelchair. Equipment Owned/DME: motorized wheelchair, FWW Subjective: Cleared by nursing to see patient and patient is agreeable to PT. Patient is lying in bed at time of consult and wanting to get up. Objective: General Observation: Patient confused, mildly agitated Mental Status: Oriented to self Pain: indicates abdominal pain, no rating given ROM: Right Upper Extremity: Shoulder Flexion to 90 degrees. Shoulder abduction to 90 degrees. Remainder is WFL. Left Upper Extremity: Shoulder Flexion to 90 degrees. Shoulder abduction to 90 degrees. Remainder is WFL. Right Lower Extremity: Unable to formerly assess, reports discomfort with lower leg movements Left Lower Extremity: Unable to formerly assess, reports discomfort with lower leg movements Strength: Right Upper Extremity: Unable to formerly assess, weakness present Left Upper Extremity: Unable to formerly assess, weakness present Right Lower Extremity: Unable to formerly assess, generally weak Left Lower Extremity: Unable to formerly assess, generally weak Sensation: Intact as to pain and pressure on bilateral lower extremities. Bed Mobility/Transfers: Rollin person assist Supine to sit: 2 person mod-max A Sit to supine: Able to get supine, but needs 2 person max A with bed inverted to position Gait: Unable Stairs: Unable Balance: Static Sitting: Poor Dynamic Sitting: Poor Static Standing: Unable Dynamic Standing: Unable Special Tests: Mobility Limitations Standardized Measure [facility] AM-PAC 6 clicks Basic Mobility Inpatient Short Form: Raw Score: 8 CMS Score: 86.62% Informed Consent/Education: Patient instructed in purpose of PT consult and plan of care. Assessment: Patient presents with clinical signs and symptoms consistent with current/admitting diagnoses that have resulted to mobility limitations, gait instability, generalized weakness, and impairment of motor control as demonstrated by the following impairment level findings: 1. Decreased strength to all major muscle groups 2. Impaired sitting/standing balance 3. Impaired activity tolerance Impairments are contributing to the following functional limitations: 1. Dependent bed mobility skills 2. Increased dependence with transfers 3. Inability to safely ambulate without assistive device and physical assistance 4. Increase completion time for mobility ADL performance 5. Increased fall risk Patient is assessed as a High complexity based on the following: History: 72 year old female with impairment level findings, functional limitations, and past medical history as indicated above Examination: Demonstrable impairment in strength, balance, and mobility level with underlying impairments and functional limitations as documented above Presentation: Evolving Decision Making: High complexity Patient was able to better assist getting self seated edge of bed compared to prior reports by nursing when more confused. She tends to posterior lean. Poor core stability while trying to remove gown. Patient not cooperative for assessment of AROM or strength. Goals: Goals x1 week 1. Supine-Sit: independent 2. Sit-Supine: independent 3. Sit-Stand: independent 4. Stand-Sit: independent 5. Bed-Chair: independent 6. Chair-Bed: independent 7. Independent gait on level surface with use of least restrictive device for at least 300 feet without report of pain nor dyspnea 8. Good static and dynamic standing balance/tolerance 9. Independent with home exercise program 10. Independent stair negotiation while holding onto bilateral rails for at least 10 steps without report of pain nor dyspnea Plan of Care/Treatment Plan: 1-2x/day, 7 days/week x1 week. Plan of care has been reviewed with the AEROSPACE MANAGER providing the service under Physical Therapy direction. Initiate Physical Therapy intervention for strengthening, bed mobility, transfers, gait, stairs, balance training, and use of assistive device. Discharge Plan DISCHARGE RECOMMENDATIONS: SNF versus LTC based on ability to participate and progress TREATMENT CODE/TIME: 9:54-10:05 (11 minutes), [id number] Thank you for the opportunity to participate in the care of this patient. Abby Nelson, PT, DPT, OCS [facility] [place], [place]
[2023-01-10] MEDS: QUEtiapine 25 MG TAB PO ×3 (12:29→23:15)
--- NOTE | 2023-01-10 12:29 | CMPROGNOTE_ITS ---
Date of service: 01/10/23 Time of Service: 12:30 Care Management Progress Note Progress Note Text Progress Note Text: S/O: Raven was lying in bed when CM met with her. She stated that she is not feeling at her baseline. Per provider, she is nearing her baseline and will likely be medically cleared soon. CM discussed discharge options with Raven, including SNF, which is recommended by PT. Raven stated that she is agreeable to referrals being sent for SNF. CM sent referrals to [facility], [facility], [facility] and [facility]; at her request. CM will continue to follow. A:Raven is a 72 year old woman admitted on 01/04/23 with altered mental status P:Anticipate Raven will return home, possibly with new home health services. She will follow up with her PCP and plan of care and transport with family vs RCT. CM will support Raven and assess for discharge planning needs.
[2023-01-10] MEDS: Heparin 5,000 UNITS/ML VIAL 5000 UNITS SC ×2 (12:59→23:20)
--- NOTE | 2023-01-10 14:34 | PDOC.STREC ---
Date of service: 01/10/23 Time of Service: 14:34 Speech Therapy Recommendations Report ST Recommendations: NON-TREATMENT NOTE: Attempting to contact patient again this date after unable to evaluate last week due to being obtunded. Per nursing, today does not appear to be a good day for swallow evaluation. PT did evaluate patient earlier this date and recommended SNF. Per hospitalist notes, patient is reportedly tolerating a regular diet. LIGHTOUT EXAMINER will continue to follow patient status and communicate with medical team in order to perform bedside swallow evaluation when appropriate. If no longer necessary, please cancel LIGHTOUT EXAMINER consult order. If patient is discharged before LIGHTOUT EXAMINER can complete bedside evaluation, she would benefit from LIGHTOUT EXAMINER evaluation on SNF admit. Coding
[2023-01-10 15:49] VITALS: BP 176/84; PULSE 97; RESP 16; TEMP 36.5; O2SAT 96
--- NOTE | 2023-01-10 17:27 | PGE_ITS ---
Date of Service Date of service: 01/10/23 Time of Service: 17:27 Assessment and Plan Assessment and plan (1) Delirium: Status: Acute Assessment and plan: multifactoral, prolonged hospitalization, infection and underlying cognitive impairment with decline likely, was adequately treated for UTI, rehydrated. will increase seroquel dose, safety precautions. ok to leave queen and IV out. (2) Acute on chronic kidney failure: Status: Resolved Assessment and plan: creatinine now at baseline, 1.4 renal ultrasound unremarkable continue to hold lisinopril, avoid nephrotoxic drugs and renal dose as needed. (3) UTI (urinary tract infection): Status: Acute Assessment and plan: urine culture positive for Ecoli - pansensitive, will downstep to cefpodoxime fr om ceftriaxone Continue antibiotic day 11/18 urinary catheter changed 01/08 (4) Diabetes mellitus type 2: Status: Chronic Assessment and plan: On glipizide at home; hold until adequate oral intake established. Cont Lantus; may need to adjust. Add SS correction insulin dosing. Diabetic diet. (5) CHF (congestive heart failure): Status: Chronic Assessment and plan: Elevated BNP. Not hypoxic. CXR: Lungs are clear.? No infiltrates nor obvious pleural effusions. Monitor for volume overload. (6) Hypomagnesemia: Status: Acute Assessment and plan: 1.7; repleted, monitor (7) Morbid obesity: Status: Chronic Assessment and plan: Likely OHS. (8) Hyperlipidemia: Status: Chronic Assessment and plan: continue home simvastatin. (9) Depression: Status: Chronic Assessment and plan: Continue home duloxetine. (10) COPD (chronic obstructive pulmonary disease): Status: Chronic Assessment and plan: Former smoking , no formal testing available - albuterol prn (11) Discharge planning issues: Status: Acute Assessment and plan: Full Code. Care management following, will need skilled rehab prior to safely returning home. referrals placed palliative consult placed discussed with Dr De Guzman Subjective Subjective Interval history since last seen: patient with exacerbation of her confusion. responding well to seroquel Exam Const General: disheveled, frail appearing and ill appearing chronically Nutritional Appearance: obese Orientation: alert, awake and confused HENMT Head: normal to inspection, normocephalic and atraumatic Resp Effort & Inspection: normal respiratory effort Auscultation: diminished lung sounds (throughout) Cardio Rate: regular rate Rhythm: regular rhythm GI Inspection: normal to inspection and obesity Palpation: soft Psych Mental Status: other (Cognitive impairment at baseline) Speech and Movement: speech and movement normal Mood: other (Cognitive impairment at baseline) Affect: normal affect Objective Last Vital Signs Temp 36.5 C 01/10/23 15:49 Pulse 97 H 01/10/23 15:49 Resp 16 01/10/23 15:49 BP 176/84 H 01/10/23 15:49 Pulse Ox 96 01/10/23 15:49 Time Spent with Patient Time Spent with Patient: 35-49 minutes Time was spent: preparing to see the patient(eg.review tests), obtaining and/or reviewing separately otained hiistory, ordering medications,tests, procedures and indepentently interpreting results
[2023-01-10] MEDS: Simvastatin 40 MG TAB PO (23:11)
[2023-01-10 23:18] VITALS: BP 188/95; PULSE 91; RESP 18; TEMP 36.6; O2SAT 96
[2023-01-10] MEDS: Cefpodoxime 200 MG TAB PO (23:30)
[2023-01-11] MEDS: QUEtiapine 25 MG TAB PO ×2 (02:46→10:13)
[2023-01-11 08:02] LABS: Abs Immature Grans 0.02 10^3/uL (0.0-0.06); Absolute Basophil Count 0.05 10^3/uL (0.0-0.2); Absolute Eosinophil Count 0.47 10^3/uL (0.0-0.7); Absolute Monocyte Count 0.55 10^3/uL (0.1-0.8); Absolute Neutrophil Count 4.37 10^3/uL (1.2-6.7); Basophils % 0.7; Eosinophils % 6.9; HCT 38.9 % (36.0-46.0); HGB 12.1 g/dL (11.2-15.7); Immature Grans % 0.3; Lymphocytes % 20.4; MCH 27.4 pg (27.0-33.0); MCHC 31.1 % (32.0-36.0); MCV 88 fL (80-95); MPV 9.4 fL (8.0-11.0); Neutrophils % 63.7; Platelet Count 138 10^3/uL (130-400); RBC 4.41 10^6/uL (3.93-5.22); RDW-SD 45.1 fL; WBC 6.86 10^3/uL (4.4-10.8)
[2023-01-11 08:14] LABS: Anion Gap 9.4 mmol/L (3-11); BUN 8 mg/dL (7-18); CO2 25.6 mmol/L (21.0-32.0); Calcium 9.8 mg/dL (8.5-10.1); Chloride 109 mmol/L (98-107); Estimated GFR 60.23 (mL/min/1.73m2); Glucose 97 mg/dL (74-106); Magnesium 1.1 mg/dL (1.8-2.4); Sodium 144 mmol/L (136-145)
[2023-01-11] MEDS: Insulin Glargine 300 UNITS/3 ML PEN 25 UNITS SC ×2 (09:32→19:50)
--- NOTE | 2023-01-11 09:37 | OT.INNT ---
Occupational Therapy Notes 01/11/23 OT went in to see pt who reports that she would like to wait on her ADLs today. OT did emphasize the importance of performance of ADLs and went over energy conservation techniques which OT will continue to educate pt on. Aisha Claros, OTR/L
[2023-01-11 11:10] VITALS: BP 160/84; PULSE 88; RESP 18; TEMP 36.5; O2SAT 97
--- NOTE | 2023-01-11 11:22 | CMPROGNOTE_ITS ---
Date of service: 01/11/23 Time of Service: 11:23 Care Management Progress Note Progress Note Text Progress Note Text: S/O: Raven was lying in bed when CM met with her. She was sleeping and only answered one question, stating that she feels awful today. Rodolfo was in the room visiting, and CM discussed having a family meeting on Monday at 2pm with Palliative care. He stated that he may not be able to make it in person, but would participate over the phone. CM called Marcia ([phone]), her daughter, and left a message asking for her to attend, and to inform her sisters of the meeting. Marcia is listed as her HCA, and yesterday Raven confirmed that Marcia would be her daughter that would help make decisions. Per report, Raven is not eating, is not taking her medications, and has pulled out her queen and her IV. The provider requested a meeting to help determine the direction of care that Raven would like to proceed with. CM followed up on referrals today; [facility] was not available to discuss; [facility] and [id number] are full; CM left messages with [facility]; and [facility] declined. CM will continue to follow. A:Raven is a 72 year old woman admitted on 01/04/23 with altered mental status P:Anticipate Raven will return home, possibly with new home health services. She will follow up with her PCP and plan of care and transport with family vs RCT. CM will support Raven and assess for discharge planning needs.
--- NOTE | 2023-01-11 11:43 | W.NUTCONSULT ---
Date of service: 01/11/23 Time of Service: 11:43 Nutritional Consult ASSESSMENT: Raven admitted with AMS and poor po intake since admit. PMH: morbid obesity, DM2, CHF, COPD, CKD. IV hydration needed per morning meeting as not taking in enough fluids. Home DM meds include glargine, aspart and glipizide. Estimated Needs (based on adjusted body weight): 1797 kcal, 85 g protein, 2000 ml free water Current po intake meeting <50% of needs at this time. At high nutritional risk for dehydration, overall decline and skin breakdown. Family meeting pending. NUTRITIONAL DIAGNOSIS: Inadequate intake of fluids, macronutrients secondary to AMS INTERVENTION: Continue current meal plan provide glucerna TID and encourage fluid intake RADIO STATION ENGINEER consult pending MONITORING AND EVALUATION: po intake, labs, weight Time Spent in Nutritional Counseling and Treatment: 0
--- NOTE | 2023-01-11 12:33 | NUR.NOTE ---
Nursing Note:at start of shift, patient refusing all attempts at care, medication administration, and meals. Attempted to assist with feed breakfast this morning, patient verbally refusing and pushing tray away, also pushing RN arm away. Patient refusing all attempts at PO hydration or oral intake. Unable to administer PO medications. Patient allowing VS monitoring and BG checks but verbally yelling at staff stating leave me alone. Patient combative when helping with position changes and toileting, and grabbing staff arms and squeezing and scratching. Patient able to void continently on bed oviedo but resistant to skin care and cleansing after. Patient sleeping at 1200, arousable to loud verbal stimuli with gentle shake, patient refusing lunch and attempts at PO medication administration.
[2023-01-11] MEDS: Heparin 5,000 UNITS/ML VIAL 5000 UNITS SC (12:45)
--- NOTE | 2023-01-11 14:39 | W.PM.PROGNOT ---
Date of Service Date of service: 01/11/23 Time of Service: 14:40 Assessment and Plan Assessment and plan (1) Delirium: Status: Acute Assessment and plan: multifactoral, prolonged hospitalization, infection and underlying cognitive impairment with decline likely, was adequately treated for UTI, rehydrated. seroquel dose had been increased need to initiate feeding to facilitate adequate intake and hydration., safety precautions. ok to continue to leave queen and IV out at patient insistence. (2) Acute on chronic kidney failure: Status: Resolved Assessment and plan: creatinine now at baseline renal ultrasound unremarkable continue to hold lisinopril, avoid nephrotoxic drugs and renal dose as needed. (3) UTI (urinary tract infection): Status: Resolved Assessment and plan: urine culture positive for Ecoli - pansensitive, will downstep to cefpodoxime from ceftriaxone Continue antibiotic day 11/18 urinary catheter changed 01/08 (4) Diabetes mellitus type 2: Status: Chronic Assessment and plan: On glipizide at home; hold until adequate oral intake established. Cont Lantus; may need to adjust. Add SS correction insulin dosing. Diabetic diet. (5) CHF (congestive heart failure): Status: Chronic Assessment and plan: Elevated BNP. Not hypoxic. CXR: Lungs are clear.? No infiltrates nor obvious pleural effusions. Monitor for volume overload. (6) Hypomagnesemia: Status: Acute Assessment and plan: 1.7; repleted, monitor (7) Morbid obesity: Status: Chronic Assessment and plan: Likely OHS. (8) Hyperlipidemia: Status: Chronic Assessment and plan: continue home simvastatin. (9) Depression: Status: Chronic Assessment and plan: Continue home duloxetine. (10) COPD (chronic obstructive pulmonary disease): Status: Chronic Assessment and plan: Former smoking , no formal testing available - albuterol prn (11) Discharge planning issues: Status: Acute Assessment and plan: Full Code. Care management following, will need skilled rehab prior to safely returning home. referrals placed palliative consult placed discussed with Dr De Guzman Subjective Subjective Interval history since last seen: still remains confused, refusing to eat and take medication. refused am lab drawn. Exam Const General: disheveled, frail appearing and ill appearing chronically Nutritional Appearance: obese Orientation: alert, awake and confused HENAK Head: normal to inspection, normocephalic and atraumatic Resp Effort & Inspection: normal respiratory effort Auscultation: diminished lung sounds (throughout) Cardio Rate: regular rate Rhythm: regular rhythm GI Inspection: normal to inspection and obesity Palpation: soft Psych Mental Status: other (Cognitive impairment at baseline) Speech and Movement: speech and movement normal Mood: other (Cognitive impairment at baseline) Affect: normal affect Objective Last Vital Signs Temp 36.5 C 01/11/23 11:10 Pulse 88 01/11/23 11:10 Resp 18 01/11/23 11:10 BP 160/84 H 01/11/23 11:10 Pulse Ox 97 01/11/23 11:10 Laboratory Results - last 24 hr 01/11/23 01/11/23 07:50 07:50 WBC 6.86 RBC 4.41 Hgb 12.1 Hct 38.9 MCV 88 MCH 27.4 MCHC 31.1 L RDW 14.0 Plt Count 138 MPV 9.4 Immature Gran % 0.3 Neutrophils % 63.7 Lymphocytes % 20.4 Monocytes % 8.0 Eosinophils % 6.9 Basophils % 0.7 Nucleated RBC % 0.0 Absolute Neutrophils 4.37 Absolute Lymphocytes 1.40 Absolute Monocytes 0.55 Absolute Eosinophils 0.47 Absolute Basophils 0.05 Sodium 144 Potassium 4.0 Chloride 109 H Carbon Dioxide 25.6 Anion Gap 9.4 BUN 8 Creatinine 1.0 Est GFR (CKD-EPI 2020) 60.23 Glucose 97 Calcium 9.8 Magnesium 1.1 L Time Spent with Patient Time Spent with Patient: 25-34 minutes Time was spent: preparing to see the patient(eg.review tests), obtaining and/or reviewing separately otained hiistory, ordering medications,tests, procedures, indepentently interpreting results and counseling the patient
[2023-01-11 14:45] VITALS: BP 162/77; PULSE 94; RESP 18; TEMP 36.5; O2SAT 98
[2023-01-11] MEDS: Nystatin POWDER 60 GM JAR TP (16:39)
--- NOTE | 2023-01-11 17:38 | PTTR_ITS ---
Date of service: 01/11/23 Time of Service: 11:12 PT Notes Visit Reasons: Cerebrovascular accident Inpatient Physical Therapy Treatment Note [facility] Date: 01/11/23 PRECAUTIONS: Fall, standard, activity as tolerated SUBJECTIVE: Patient is supine in bed, appears to be asleep, rouses easily. Agreeable to therapy in the am, declines therapy in the afternoon due to fatigue. OBJECTIVE: PAIN: none reported THEREX: Patient participates in bed level exercises including heel slides, short arc quads, assisted straight leg raises, hip adduction sets v pillow. reports b ecoming very fatigued. ASSESSMENT: Patient supine in bed at the end of therapy. Appears to tolerate therapy well. No complaints of shortness of breath. PLAN: continue strengthening per plan of care TREATMENT CODE/TIME: 42004 TherEx 10 minutes beginning at 11:12
[2023-01-11] MEDS: Magnesium Chloride 64 MG TABCR PO (19:48)
[2023-01-11] MEDS: Cefpodoxime 200 MG TAB PO (19:49)
[2023-01-11] MEDS: Simvastatin 40 MG TAB PO (21:15)
[2023-01-11] MEDS: traMADol 50 MG TAB 100 MG PO (21:15)
[2023-01-11 22:51] VITALS: BP 132/84; PULSE 93; RESP 18; TEMP 37; O2SAT 96
[2023-01-12] MEDS: Heparin 5,000 UNITS/ML VIAL 5000 UNITS SC ×3 (01:09→23:28)
[2023-01-12 07:13] VITALS: BP 140/78; PULSE 88; RESP 18; TEMP 36.6; O2SAT 94
--- NOTE | 2023-01-12 07:58 | OTTR_ITS ---
Occupational Therapy Notes Occupational Therapy Inpatient Treatment Note Date: 01/12/23 PRECAUTIONS: Fall, standard, full SUBJECTIVE: Pt states that she is doing well. She notes that she would like to get washed up and reports that her head is hurting this morning. She is receptive to her ADLs and performance of this. OBJECTIVE: PAIN:c/o pain in head with sudden movement. FUNCTIONAL MOBILITY Rolling L/R: mood (A) BATHING: Upper Body: (I) face, (B) UE And abdomen while laying in bed with max (A) set up Lower Body: max (A) DRESSING: Upper Extremity: mod (A) Lower Extremity: max (A) GROOMING: Hair is severely matted to pts head. OT does mention this to charge nurse today and OT will attempt to get this out tomorrow. TOILETING: Device: incontinent Assist: max (A) ASSESSMENT/PLAN: Pt is receptive to performance of her ADLs, her hair is severely matted on the back of her head. OT is unable to get a comb through this and put some detangler in her hair. OT will continue to monitor this. She still had the hair tie in her hair from when OT evaluated her and goal is to get patient to a place where she can better maintain this (I). Functionally still requiring max (A) for LE. OT recommends SNF at this time. TREATMENT CODES/TIME: [id number], 24 minutes (07:35) [facility] [place], [place]
[2023-01-12] MEDS: Pregabalin 25 MG CAP 75 MG PO (08:09)
[2023-01-12] MEDS: DULoxetine 30 MG CAP 60 MG PO (08:09)
[2023-01-12] MEDS: Aspirin 81 MG CHEW PO (08:09)
[2023-01-12] MEDS: Cholecalciferol (Vitamin D3) 1,000 UNIT TAB 4000 UNITS PO (08:09)
[2023-01-12] MEDS: Magnesium Chloride 64 MG TABCR PO ×2 (08:09→19:41)
[2023-01-12] MEDS: Metoprolol CR 25 MG TABCR PO (08:10)
[2023-01-12] MEDS: Cefpodoxime 200 MG TAB PO ×2 (08:10→19:41)
[2023-01-12] MEDS: QUEtiapine 25 MG TAB PO ×2 (08:10→19:42)
[2023-01-12] MEDS: Omeprazole 20 MG CAPCR PO (08:10)
[2023-01-12] MEDS: Insulin Glargine 300 UNITS/3 ML PEN 25 UNITS SC ×2 (08:10→19:42)
[2023-01-12] MEDS: Nystatin POWDER 60 GM JAR TP ×2 (08:30→19:56)
[2023-01-12] MEDS: Insulin Aspart 300 UNITS/3 ML PEN SC (11:54)
--- NOTE | 2023-01-12 12:03 | CMPROGNOTE_ITS ---
Date of service: 01/12/23 Time of Service: 12:03 Care Management Progress Note Progress Note Text Progress Note Text: S/O: Raven is more alert this morning per RNCC report; has taken morning medications. CM continues to follow. A: 72 year old female admitted to [facility] 01/04/23 for CVA. P: Family meeting scheduled for tomorrow, 01/13/23@1400; anticipate SNF [id number] or Hospice status due to increased care needs. CM continues to follow.
--- NOTE | 2023-01-12 13:59 | PGE_ITS ---
Date of Service Date of service: 01/12/23 Time of Service: 14:00 Assessment and Plan Assessment and plan (1) Delirium: Status: Acute Assessment and plan: multifactoral, prolonged hospitalization, infection and underlying cognitive impairment with decline likely, was adequately treated for UTI, rehydrated. improved today and taking medication. seroquel dose had been increased, patient responding well. continue feeding order to facilitate adequate intake and hydration., safety precautions. ok to continue to leave queen and IV out at patient insistence. (2) Acute on chronic kidney failure: Status: Resolved Assessment and plan: creatinine below baseline, now at 1.0. will continue to offer hydration and assist with feeding renal ultrasound unremarkable continue to hold lisinopril blood pressure controlled today, will continue to follow and adjust meds as needed. (3) Diabetes mellitus type 2: Status: Chronic Assessment and plan: On glipizide at home; hold until adequate oral intake established. Cont Lantus; may need to adjust. Add SS correction insulin dosing. Diabetic diet. (4) CHF (congestive heart failure): Status: Chronic Assessment and plan: Elevated BNP. Not hypoxic. CXR: Lungs are clear.? No infiltrates nor obvious pleural effusions. Monitor for volume overload. (5) Hypomagnesemia: Status: Acute Assessment and plan: 1.1, continue to replete orally as no IV access now and patient was refusing monitor (6) Morbid obesity: Status: Chronic Assessment and plan: Likely OHS. (7) Hyperlipidemia: Status: Chronic Assessment and plan: continue home simvastatin. (8) Depression: Status: Chronic Assessment and plan: Continue home duloxetine. (9) COPD (chronic obstructive pulmonary disease): Status: Chronic Assessment and plan: Former smoking , no formal testing available - albuterol prn (10) Discharge planning issues: Status: Acute Assessment and plan: Full Code. Care management following, will need skilled rehab prior to safely returning home. referrals placed palliative consult placed with family meeting planned for monday. discussed with Dr De Guzman Subjective Subjective Patient reports: no new complaints, feels better, tolerating liquids well and tolerating a regular diet Interval history since last seen: no behaviors, taking good intake while being fed. taking medications. medically remains stable. Exam Const General: disheveled, frail appearing and ill appearing chronically Nutritional Appearance: obese Orientation: alert, awake and confused HENMT Head: normal to inspection, normocephalic and atraumatic Resp Effort & Inspection: normal respiratory effort Auscultation: diminished lung sounds (throughout) Cardio Rate: regular rate Rhythm: regular rhythm GI Inspection: normal to inspection and obesity Palpation: soft Psych Mental Status: other (Cognitive impairment at baseline) Speech and Movement: speech and movement normal Mood: other (Cognitive impairment at baseline) Affect: normal affect Objective Last Vital Signs Temp 36.6 C 01/12/23 07:13 Pulse 88 01/12/23 07:13 Resp 18 01/12/23 07:13 BP 140/78 01/12/23 07:13 Pulse Ox 94 01/12/23 07:13 Time Spent with Patient Time Spent with Patient: 25-34 minutes Time was spent: preparing to see the patient(eg.review tests), obtaining and/or reviewing separately otained hiistory, ordering medications,tests, procedures an d indepentently interpreting results
[2023-01-12 15:10] VITALS: BP 127/79; PULSE 88; RESP 18; TEMP 36.5; O2SAT 98
--- NOTE | 2023-01-12 17:39 | PT.INTREAT ---
Date of service: 01/12/23 Time of Service: 09:27 PT Notes Visit Reasons: Cerebrovascular accident Inpatient Physical Therapy Treatment Note [facility] Date: 01/12/23 PRECAUTIONS: Fall, standard, activity as tolerated SUBJECTIVE: Patient supine in bed, asleep, rouses easily, agreeable to therapy both in the morning and afternoon OBJECTIVE: PAIN: none reported THEREX: Patient participates in bed level exercises in the morning. Exercises include heel slides, bridges, straight leg raises, short arc quads, ankle pumps, resisted plantarflexion. THERACT: Patient participates in bed mobility training in the afternoon including strategies for rolling, using the hospital bed to sit up. Patient requires verbal cues for limb placement and task sequencing. ASSESSMENT: Patient is comfortably supine in bed at end of both treatment sessions today with call joyner within reach PLAN: continue strengthening and mobilization per plan of care. TREATMENT CODE/TIME: 16038 TherEx 13 minutes beginning at 9:27 [id number] TherAct 13 minutes beginning at 15:30
[2023-01-12] MEDS: traMADol 50 MG TAB 100 MG PO (20:56)
[2023-01-12] MEDS: Simvastatin 40 MG TAB PO (20:57)
[2023-01-12 23:05] VITALS: BP 117/74; PULSE 90; RESP 18; TEMP 36.7; O2SAT 95
[2023-01-13 07:40] VITALS: BP 99/63; PULSE 88; RESP 12; TEMP 36.2; O2SAT 87
[2023-01-13 08:19] VITALS: O2SAT 92
[2023-01-13] MEDS: Cefpodoxime 200 MG TAB PO ×2 (08:37→19:41)
[2023-01-13] MEDS: Pregabalin 25 MG CAP 75 MG PO (08:37)
[2023-01-13] MEDS: Omeprazole 20 MG CAPCR PO (08:38)
[2023-01-13] MEDS: QUEtiapine 25 MG TAB PO ×2 (08:38→19:41)
[2023-01-13] MEDS: Cholecalciferol (Vitamin D3) 1,000 UNIT TAB 4000 UNITS PO (08:38)
[2023-01-13] MEDS: Aspirin 81 MG CHEW PO (08:38)
[2023-01-13] MEDS: DULoxetine 30 MG CAP 60 MG PO ×2 (08:38→19:41)
[2023-01-13] MEDS: Metoprolol CR 25 MG TABCR PO (08:38)
[2023-01-13] MEDS: Magnesium Chloride 64 MG TABCR PO (08:38)
[2023-01-13] MEDS: Nystatin POWDER 60 GM JAR TP ×3 (08:39→20:06)
[2023-01-13] MEDS: Insulin Glargine 300 UNITS/3 ML PEN 25 UNITS SC ×2 (08:44→19:42)
[2023-01-13] MEDS: Acetaminophen 325 MG TAB PO ×2 (09:27→15:39)
[2023-01-13 10:13] LABS: Abs Immature Grans 0.05 10^3/uL (0.0-0.06); Absolute Basophil Count 0.06 10^3/uL (0.0-0.2); Absolute Eosinophil Count 0.59 10^3/uL (0.0-0.7); Absolute Lymphocyte Count 1.99 10^3/uL (1.2-3.4); Absolute Monocyte Count 0.58 10^3/uL (0.1-0.8); Absolute Neutrophil Count 4.14 10^3/uL (1.2-6.7); Basophils % 0.8; HGB 12.1 g/dL (11.2-15.7); Immature Grans % 0.7; Lymphocytes % 26.9; MCH 27.4 pg (27.0-33.0); MCHC 30.3 % (32.0-36.0); MCV 91 fL (80-95); MPV 9.7 fL (8.0-11.0); Monocytes % 7.8; Neutrophils % 55.8; Platelet Count 140 10^3/uL (130-400); RBC 4.42 10^6/uL (3.93-5.22); RDW 14.2 % (11.7-14.6); RDW-SD 47.2 fL; WBC 7.41 10^3/uL (4.4-10.8)
[2023-01-13 10:25] LABS: Anion Gap 8.2 mmol/L (3-11); BUN 12 mg/dL (7-18); CO2 25.8 mmol/L (21.0-32.0); CREATININE 1.7 mg/dL (0.55-1.02); Calcium 9.5 mg/dL (8.5-10.1); Chloride 103 mmol/L (98-107); Estimated GFR 31.86 (mL/min/1.73m2); Glucose 238 mg/dL (74-106); Sodium 137 mmol/L (136-145)
[2023-01-13] MEDS: Insulin Aspart 300 UNITS/3 ML PEN SC ×2 (11:59→18:04)
[2023-01-13] MEDS: Heparin 5,000 UNITS/ML VIAL 5000 UNITS SC ×2 (12:29→22:38)
--- NOTE | 2023-01-13 12:40 | W.PALPGNOTE ---
Date of service: 01/13/23 Time of Service: 12:41 Assessment and Plan Assessment and plan (1) Delirium: Status: Acute Assessment and plan: multifactoral, prolonged hospitalization, infection and underlying cognitive impairment with decline likely, was adequately treated for UTI, rehydrated. She appears more alert today. Seroquel increased to BID, to be continued on discharge. (2) Diabetes mellitus type 2: Status: Chronic (3) CHF (congestive heart failure): Status: Chronic Assessment and plan: Elevated BNP. Does not appear to be volume overloaded at present. (4) Hypomagnesemia: Status: Acute (5) Morbid obesity: Status: Chronic (6) Hyperlipidemia: Status: Chronic Assessment and plan: (7) Depression: Status: Chronic Assessment and plan: On duloxetine. (8) COPD (chronic obstructive pulmonary disease): Status: Chronic Assessment and plan: Former smoker. (9) Altered mental status: Status: Acute (10) Fall at home: Status: Acute (11) Encounter for counseling regarding advance directives: Status: Acute (12) Chronic kidney disease: Status: Chronic (13) Palliative care encounter: Status: Acute (14) Counseling regarding goals of care: Status: Acute Assessment and plan: Raven is a 72 year old female with multiple comorbidities who presented to the ED via EMS after experiencing a BATISTA, AMS and left sided weakness at home. She was not found to have an acute CVA at the time. She was treated for UTI. She continued to experience some delirium, confusion, agitation, hallucinations and her seroquel was increased. She has not been out of bed, she was able to transfer to the [facility] at home with difficulty and several falls. She was not eating but appeared to do better with staff feeding her. She is eating up to 50% of her meals. Palliative was consulted to discuss goals of care. Her daughter/HCA was present for the visit. Discussed CODE status. Marcia states that she already decided she is a DNR/DNI. Reviewed with Raven. She is clear she is a DNR/DNI and wants comfort focused care. COLST from completed. She wishes to go home on hospice. She is clear that she wants to stay in her home. Her daughter, Marcia states she checks in on her frequently. They are looking forward to the support that hospice will offer. Refer to hospice. Subjective Subjective Interval history since last seen: Raven was seen for Palliative follow up. Her daughter/HCA, Marcia was present for the visit. She appears more alert today. She is able to engage in conversation. She is clear that she wants to go home. She is dependent on others for all care, including feeding at times. She has been refusing several meals and only eating up to 50% of meals at other times. She was able to get OOB to the commode at home but had several falls during transfers. She has bed been bound since she has been in the hospital. She has been delirious and confused during this hospitalization. She has had hallucinations and has been agitated. She was started on Seroquel BID with good effect. She has had 7 ED visits since the beginning of the year (5 months). She has had 5 hospitalizations in the last year. She does not want to continue to have hospitalizations. She wants to stay in her home. She needs more support at home. Her boyfriend is her caregiver. Rodolfo is older and not in great health. Her daughter, Marcia is involved in her care. Care management is helping her apply for LT medicaid. She has been approved clinically, they are gathering financial information. Exam Narrative Exam Narrative: General: elderly female, sitting up in her bed with a full lunch plate in front of her. She is obese. She is awake and alert. Slow to respond at times. HEENT: normocephalic, atraumatic, EOMI, mmm Neck: supple Respiratory: respirations appear even and unlabored. GI: soft, round, nontender on gentle palpation. +Colostomy Extremities: moves all 4 extremities, no edema to BLEs. Objective Last Vital Signs Temp 36.2 C L 01/13/23 07:40 Pulse 88 01/13/23 07:40 Resp 12 01/13/23 07:40 BP 99/63 L 01/13/23 07:40 Pulse Ox 92 01/13/23 08:19 Laboratory Results - last 24 hr 01/13/23 01/13/23 10:05 10:05 WBC 7.41 RBC 4.42 Hgb 12.1 Hct 40.0 MCV 91 MCH 27.4 MCHC 30.3 L RDW 14.2 Plt Count 140 MPV 9.7 Immature Gran % 0.7 Neutrophils % 55.8 Lymphocytes % 26.9 Monocytes % 7.8 Eosinophils % 8.0 Basophils % 0.8 Nucleated RBC % 0.0 Absolute Neutrophils 4.14 Absolute Lymphocytes 1.99 Absolute Monocytes 0.58 Absolute Eosinophils 0.59 Absolute Basophils 0.06 Sodium 137 Potassium 4.0 Chloride 103 Carbon Dioxide 25.8 Anion Gap 8.2 BUN 12 Creatinine 1.7 H Est GFR (CKD-EPI 2020) 31.86 Glucose 238 H Calcium 9.5
[2023-01-13 15:22] VITALS: BP 108/63; PULSE 83; RESP 17; TEMP 36.4; O2SAT 94
--- NOTE | 2023-01-13 15:46 | PDOC.CMPRO ---
Date of service: 01/13/23 Time of Service: 15:46 Care Management Progress Note Progress Note Text Progress Note Text: S/O: Raven was sitting up in bed eating lunch when CM met with her. Her daughter, Marcia was visiting with her and daughter. CM assisted Raven with a RYLIE form, to appoint Marcia as an authorized membership sales representative to assist with her termite treater RYLIE application. CM facilitated a family meeting this afternoon with Meggan, Palliative care, as well as Raven and Marcia. Raven decided to return home with Hospice support, and will need equipment delivered prior to her discharge home. Hospice is coordinating her equipment and will likely plan a same day admission, once the equipment has been delivered. CM will continue to support Raven and her family with discharge planning considerations. A:Raven is a 72 year old woman admitted on 01/04/23 with altered mental status P:Anticipate Raven will return home, with a planned admission to Hospice once equipment has been delivered. She will follow up with her PCP and plan of care and likely transport via EMS. CM will support Raven and assess for discharge planning needs.
--- NOTE | 2023-01-13 15:58 | PGE_ITS ---
Date of Service Date of service: 01/13/23 Time of Service: 15:58 Assessment and Plan Assessment and plan (1) Delirium: Status: Acute Assessment and plan: multifactoral, prolonged hospitalization, infection and underlying cognitive impairment with decline likely, was adequately treated for UTI, rehydrated. improved today and taking medication, seems back to baseline. seroquel dose had been increased, patient responding well. continue feeding order to facilitate adequate intake and hydration., safety precautions. (2) Diabetes mellitus type 2: Status: Chronic Assessment and plan: On glipizide at home; hold until adequate oral intake established. Cont Lantus; may need to adjust. Add SS correction insulin dosing. Diabetic diet. (3) CHF (congestive heart failure): Status: Chronic Assessment and plan: Elevated BNP. Not hypoxic. CXR: Lungs are clear.? No infiltrates nor obvious pleural effusions. Monitor for volume overload. (4) Hypomagnesemia: Status: Acute Assessment and plan: 1.1, continue to replete orally as no IV access now and patient was refusing monitor (5) Morbid obesity: Status: Chronic Assessment and plan: Likely OHS. (6) Hyperlipidemia: Status: Chronic Assessment and plan: continue home simvastatin. (7) Depression: Status: Chronic Assessment and plan: Continue home duloxetine. (8) COPD (chronic obstructive pulmonary disease): Status: Chronic Assessment and plan: Former smoking , no formal testing available - albuterol prn (9) Discharge planning issues: Status: Acute Assessment and plan: Full Code. Care management following, palliative consult and patient and family wish to return home on hospice. discussed with Dr Luna Subjective Subjective Patient reports: no new complaints, feels better, tolerating liquids well, tolerating a regular diet and afebrile; denies voiding w/o difficulty (urinary retention) or shortness of breath Exam Const General: disheveled, frail appearing and ill appearing chronically Nutritional Appearance: obese Orientation: alert, awake and confused HENNE Head: normal to inspection, normocephalic and atraumatic Resp Effort & Inspection: normal respiratory effort Auscultation: diminished lung sounds (throughout) Cardio Rate: regular rate Rhythm: regular rhythm GI Inspection: normal to inspection and obesity Palpation: soft Psych Mental Status: other (Cognitive impairment at baseline) Speech and Movement: speech and movement normal Mood: other (Cognitive impairment at baseline) Affect: normal affect Objective Last Vital Signs Temp 36.4 C L 01/13/23 15:22 Pulse 83 01/13/23 15:22 Resp 17 01/13/23 15:22 BP 108/63 01/13/23 15:22 Pulse Ox 94 01/13/23 15:22 Laboratory Results - last 24 hr 01/13/23 01/13/23 10:05 10:05 WBC 7.41 RBC 4.42 Hgb 12.1 Hct 40.0 MCV 91 MCH 27.4 MCHC 30.3 L RDW 14.2 Plt Count 140 MPV 9.7 Immature Gran % 0.7 Neutrophils % 55.8 Lymphocytes % 26.9 Monocytes % 7.8 Eosinophils % 8.0 Basophils % 0.8 Nucleated RBC % 0.0 Absolute Neutrophils 4.14 Absolute Lymphocytes 1.99 Absolute Monocytes 0.58 Absolute Eosinophils 0.59 Absolute Basophils 0.06 Sodium 137 Potassium 4.0 Chloride 103 Carbon Dioxide 25.8 Anion Gap 8.2 BUN 12 Creatinine 1.7 H Est GFR (CKD-EPI 2020) 31.86 Glucose 238 H Calcium 9.5 Time Spent with Patient Time Spent with Patient: 35-49 minutes Time was spent: preparing to see the patient(eg.review tests), obtaining and/or reviewing separately otained hiistory, referring, communicating with other health resident caregiver and care coordination
--- NOTE | 2023-01-13 16:03 | PHA.REVIEW2 ---
Pharmacy Admission Review - Admission Clinical Review (Last Reviewed 12/28/22 @ 22:53 by Raghu Childs MD) Discharge planning issues (Acute) Counseling regarding goals of care (Acute) Altered mental status (Acute) Hypomagnesemia (Acute) Acute CVA (cerebrovascular accident) (Acute) Deficit in activities of daily living (ADL) (Acute) Delirium (Acute) epinephrine Allergy (Severe, Unverified 12/28/22 22:12) chest pain/heart attack Penicillins Allergy (Intermediate, Unverified 12/28/22 22:12) rsh fever banana [Banana] Allergy (Unverified 12/28/22 22:12) NSAIDS (Non-Steroidal Anti-Inflamma Allergy (Unverified 12/28/22 22:12) unkown Sulfa (Sulfonamide Antibiotics) Allergy (Unverified 12/28/22 22:12) rash,fever Tetracyclines Allergy (Unverified 12/28/22 22:12) rash fever sodium polystyrene sulfonate [From Kayexalate] Adverse Reaction (Severe, Unverified 12/28/22 22:12) tachy/dyspnea/rash Niacin Preparations Adverse Reaction (Intermediate, Unverified 12/28/22 22:12) flushing Resuscitation Status Full Code Height 5 ft 2 in Weight 124.874 kg - Renal Dosing Renal Dosing: BUN 12 mg/dL (7-18) 01/13/23 10:05 Creatinine 1.7 mg/dL (0.55-1.02) H 01/13/23 10:05 Medications needing adjustments: Reviewed (eCrCl 38 ml/min) - Anticoagulation Anticoagulation: Hgb 12.1 g/dL (11.2-15.7) 01/13/23 10:05 Hct 40.0 % (36.0-46.0) 01/13/23 10:05 Plt Count 140 10^3/uL (130-400) 01/13/23 10:05 INR 1.0 (0.9-1.1) 01/04/23 09:40 Creatinine 1.7 mg/dL (0.55-1.02) H 01/13/23 10:05 DVT Prophylaxis: Reviewed Medications: Heparin - Opiate Usage Evaluate Pain Scale/Pains Meds: Reviewed Scheduled Bowel Reg ordered if on Opiates?: No (BM on 01/12) - Relevant Labs Sodium 137 mmol/L (136-145) 01/13/23 10:05 Potassium 4.0 mmol/L (3.5-5.1) 01/13/23 10:05 Chloride 103 mmol/L (98-107) 01/13/23 10:05 Magnesium 1.1 mg/dL (1.8-2.4) L 01/11/23 07:50 C-Reactive Protein 1.13 mg/dL (0.0-0.3) H 01/05/23 08:30 Electrolytes, C-Reactive P, ESR: Intervened (Mag 1.1 -- patient is refusing IV replacement, lost access, being repleted orally -- reach out to provider, we will increase her oral daily dose which I have recommended 3 tabs BID (max recommended oral dose is ~40meq to reduce incidence of diarrhea)) - DM Control DM Control: Glucose 238 mg/dL (74-106) H 01/13/23 10:05 Finger Stick Blood Glucose 272 Finger Stick Blood Glucose 272 Finger Stick Blood Glucose 272 Finger Stick Blood Glucose 130 Finger Stick Blood Glucose 130 DM Control: Reviewed - Cardiac Review Cardiac Review: Troponin I 66 ng/L (<or=60) H* 01/04/23 16:52 NT-Pro-B Natriuret Pep 2475 pg/mL (<300) H 01/04/23 09:40 NT-Pro-B Natriuret Pep Cancelled 01/04/23 09:40 BP, HR, EF%: Reviewed - Qtc Review QTc: N/A - IV to PO Switch IV Medications: Reviewed - Home Meds Home Med List reviewed: Reviewed Relevent Home Meds Not ordered & why?: not ordered: lisinopril (SANDY during admission,) - Current meds Current Medication Order Review: Reviewed (responding well to increased seroquel dose)
--- NOTE | 2023-01-13 16:54 | PT.INTREAT ---
Date of service: 01/13/23 Time of Service: 09:11 PT Notes Visit Reasons: Cerebrovascular accident Inpatient Physical Therapy Treatment Note [facility] Date: 01.13.23 PRECAUTIONS: Fall, standard, activity as tolerated SUBJECTIVE: Patient is alert and agreeable to therapy in the am, sleepy and refuses therapy in the afternoon. States she will walk with therapy tomorrow in the morning if we let her rest today (patient at baseline can transfer, take 2-3 steps but does not walk any distance.) OBJECTIVE: PAIN: none reported BED MOBILITY/TRANSFERS Supine-sit: mod assist with extra time. Sit-supine: min assist with extra time, tilt head of bed down to scoot up. THEREX: Patient participates in bed level exercises including heel slides, bridges, ankle pumps ASSESSMENT: Patient doing much better this am vs the last few days. This afternoon she was still more intelligible then she has been with me, but sleepy and refuses therapy. PLAN: continue strengthening per plan of care TREATMENT CODE/TIME: 08553 Ther Act 20, 44243 Ther Ex 16 minutes beginning at 9:11
[2023-01-13] MEDS: Pregabalin 50 MG CAP PO (19:41)
[2023-01-13] MEDS: Magnesium Chloride 64 MG TABCR 192 MG PO (19:42)
[2023-01-13 22:33] VITALS: BP 139/69; PULSE 61; RESP 18; TEMP 36.1; O2SAT 94
[2023-01-13] MEDS: traMADol 50 MG TAB 100 MG PO (22:38)
[2023-01-13] MEDS: Simvastatin 40 MG TAB PO (22:38)
[2023-01-14 06:38] VITALS: BP 120/65; PULSE 67; RESP 18; TEMP 36.7; O2SAT 95
[2023-01-14] MEDS: Pregabalin 50 MG CAP PO ×3 (08:17→19:16)
[2023-01-14] MEDS: QUEtiapine 25 MG TAB PO ×2 (08:17→19:17)
[2023-01-14] MEDS: Aspirin 81 MG CHEW PO (08:17)
[2023-01-14] MEDS: Cholecalciferol (Vitamin D3) 1,000 UNIT TAB 4000 UNITS PO (08:18)
[2023-01-14] MEDS: Magnesium Chloride 64 MG TABCR 192 MG PO ×2 (08:18→19:16)
[2023-01-14] MEDS: DULoxetine 30 MG CAP 60 MG PO ×2 (08:19→19:16)
[2023-01-14] MEDS: Metoprolol CR 25 MG TABCR PO (08:19)
[2023-01-14] MEDS: Omeprazole 20 MG CAPCR PO (08:19)
[2023-01-14] MEDS: Insulin Glargine 300 UNITS/3 ML PEN 25 UNITS SC ×2 (08:20→19:19)
[2023-01-14] MEDS: Nystatin POWDER 60 GM JAR TP ×2 (08:23→19:21)
[2023-01-14] MEDS: Acetaminophen 325 MG TAB PO (09:47)
--- NOTE | 2023-01-14 09:57 | PT.INTREAT ---
PT Notes Visit Reasons: Cerebrovascular accident Inpatient Physical Therapy Treatment Note [facility] Date: 01/14/23 PRECAUTIONS: SUBJECTIVE: Pt reports that she has a head ache this morning. OBJECTIVE: THEREX: Pt refused getting OOB and also refused sitting at the edge of the bed this am. Pt completed supine shoulder flexion x 10, horz abd x 10, rowing x 10, cw/ccw x 5 each, hip abd x 10, heel slides x 10, ankle pumps x 10, and Q.S. x 10. ASSESSMENT: Pt fatigued quickly. Will monitor pt's response and progress accordingly. PLAN: Cont as per PT POC. TREATMENT CODE/TIME: 10:35-10:55 (20) TP
[2023-01-14] MEDS: Insulin Aspart 300 UNITS/3 ML PEN SC ×2 (11:41→17:13)
[2023-01-14] MEDS: Heparin 5,000 UNITS/ML VIAL 5000 UNITS SC ×2 (11:42→22:57)
[2023-01-14 12:56] LABS: HGB 11.9 g/dL (11.2-15.7); MCH 27.7 pg (27.0-33.0); MCHC 31.3 % (32.0-36.0); MCV 89 fL (80-95); MPV 10.6 fL (8.0-11.0); Platelet Count 131 10^3/uL (130-400); RBC 4.29 10^6/uL (3.93-5.22); RDW 14.2 % (11.7-14.6); RDW-SD 45.7 fL; WBC 9.82 10^3/uL (4.4-10.8)
--- NOTE | 2023-01-14 14:18 | W.PM.PROGNOT ---
Date of Service Date of service: 01/14/23 Time of Service: 14:18 Assessment and Plan Assessment and plan (1) Delirium: Status: Resolved Assessment and plan: improved on adjusted medication, seems back to baseline. continue current bid seroquel dosing continue feeding order to facilitate adequate intake and hydration., safety precautions. (2) Diabetes mellitus type 2: Status: Chronic Assessment and plan: On glipizide at home; hold until adequate oral intake established. Cont Lantus; may need to adjust. Add SS correction insulin dosing. Diabetic diet. (3) CHF (congestive heart failure): Status: Chronic Assessment and plan: stable Monitor for volume overload. (4) Hypomagnesemia: Status: Acute Assessment and plan: continue to replete orally (5) Morbid obesity: Status: Chronic Assessment and plan: Likely OHS. (6) Hyperlipidemia: Status: Chronic Assessment and plan: continue home simvastatin. (7) Depression: Status: Chronic Assessment and plan: Continue home duloxetine. (8) COPD (chronic obstructive pulmonary disease): Status: Chronic Assessment and plan: Former smoking , no formal testing available - albuterol prn (9) Discharge planning issues: Status: Acute Assessment and plan: Full Code. Care management following, palliative consult and patient and family wish to return home on hospice. discussed with Dr Luna Subjective Subjective Patient reports: no new complaints, feels better, tolerating liquids well, tolerating a regular diet and afebrile; denies shortness of breath Exam Const General: disheveled, frail appearing and ill appearing chronically Nutritional Appearance: obese Orientation: alert and awake HENMT Head: normal to inspection, normocephalic and atraumatic Resp Effort & Inspection: normal respiratory effort Auscultation: diminished lung sounds (throughout) Cardio Rate: regular rate Rhythm: regular rhythm GI Inspection: normal to inspection and obesity Palpation: soft Psych Mental Status: other (Cognitive impairment at baseline) Speech and Movement: speech and movement normal Mood: other (Cognitive impairment at baseline) Affect: normal affect Objective Last Vital Signs Temp 36.7 C 01/14/23 06:38 Pulse 67 01/14/23 06:38 Resp 18 01/14/23 06:38 BP 120/65 01/14/23 06:38 Pulse Ox 95 01/14/23 06:38 Laboratory Results - last 24 hr 01/14/23 01/14/23 10:57 12:40 WBC Cancelled 9.82 RBC Cancelled 4.29 Hgb Cancelled 11.9 Hct Cancelled 38.0 MCV Cancelled 89 MCH Cancelled 27.7 MCHC Cancelled 31.3 L RDW Cancelled 14.2 Plt Count Cancelled 131 MPV Cancelled 10.6 Time Spent with Patient Time Spent with Patient: 25-34 minutes Time was spent: preparing to see the patient(eg.review tests), obtaining and/or reviewing separately otained hiistory, ordering medications,tests, procedures, referring, communicating with other health career services director, indepentently interpreting results and care coordination
[2023-01-14 15:08] VITALS: BP 115/79; PULSE 90; RESP 18; TEMP 36.5; O2SAT 94
[2023-01-14] MEDS: traMADol 50 MG TAB 100 MG PO (22:57)
[2023-01-14] MEDS: Simvastatin 40 MG TAB PO (22:57)
[2023-01-15 03:26] VITALS: BP 123/69; PULSE 69; RESP 18; TEMP 36; O2SAT 94
[2023-01-15] MEDS: DULoxetine 30 MG CAP 60 MG PO (08:20)
[2023-01-15] MEDS: Aspirin 81 MG CHEW PO (08:20)
[2023-01-15] MEDS: Pregabalin 50 MG CAP PO (08:20)
[2023-01-15] MEDS: Omeprazole 20 MG CAPCR PO (08:20)
[2023-01-15] MEDS: Metoprolol CR 25 MG TABCR PO (08:20)
[2023-01-15] MEDS: Magnesium Chloride 64 MG TABCR 192 MG PO (08:20)
[2023-01-15] MEDS: Cholecalciferol (Vitamin D3) 1,000 UNIT TAB 4000 UNITS PO (08:20)
[2023-01-15] MEDS: QUEtiapine 25 MG TAB PO (08:21)
[2023-01-15] MEDS: Nystatin POWDER 60 GM JAR TP (08:21)
[2023-01-15] MEDS: Insulin Glargine 300 UNITS/3 ML PEN 25 UNITS SC (08:22)
[2023-01-15 08:23] VITALS: BP 105/55; PULSE 70; RESP 18; TEMP 36; O2SAT 98
--- NOTE | 2023-01-15 10:24 | W.PM.DS.N ---
Date of service: 01/15/23 Time of Service: 10:24 DS: Diagnosis Discharge Diagnosis (1) Delirium: Status: Resolved (2) Diabetes mellitus type 2: Status: Chronic (3) CHF (congestive heart failure): Status: Chronic (4) Hypomagnesemia: Status: Acute (5) Morbid obesity: Status: Chronic (6) Hyperlipidemia: Status: Chronic (7) Depression: Status: Chronic (8) COPD (chronic obstructive pulmonary disease): Status: Chronic (9) Altered mental status: Status: Acute (10) Fall at home: Status: Acute (11) Encounter for counseling regarding advance directives: Status: Acute (12) Chronic kidney disease: Status: Chronic (13) Palliative care encounter: Status: Acute (14) Counseling regarding goals of care: Status: Acute Discharge Plan Disposition Patient Disposition: Home W/Hospice Services Condition: Fair Discharge Details Reason For Visit: CVA Admit Date/Time: 01/04/23 11:02 Admit Provider: Michael Iqbal Attending Provider: Michael Iqbal Primary Care Provider: Mary Ann Luo Hospital Course Hospital Course: This is a 72 yo female with history of CHF, COPD, CKD, DM2, morbid obesity, sedentary lifestyle well known to [facility] who presented to the ED via EMS.? Her endorsed that she complained of a BATISTA the day prior to arrival.? He felt she was more lethargic and confused on day of admission.? EMS reported a BP of 63/47 with a temp of 101.? She was initially thought to be having a CVA, head CT and MRI negative, no source of infection identified. she was admitted to med/surg unit under hospitalist services from further monitoring. Her hospital course was complicated with acute renal failure, responded to hydration, her delirium treated with increased dosing of seroquel which also stabilized her symptoms. Palliative care was consulted for patient goals of care, she historically refuses rehab and is struggling to manage at home and concern is that her physical status will continue to deteriorate. with shared decision making with patient and family she was made DNR/DNI. she wishes for discharge to home on hospice services, which family supports. Hospice evaluation and discharge plan was placed. she is being discharged to home on hospice by EMS d/t morbid obesity and cognitive impairment. discharge discussed with Dr Luna. Home Meds and New Rx's Prescriptions: Continued acetaminophen 650 mg suppository 650 mg UT Q6H PRN (Reason: fever, mild pain) Qty: 6 0RF Rx Instructions: Hospice Patient prochlorperazine maleate 10 mg tablet 10 mg PO Q6H PRN (Reason: nausea and vomiting) Qty: 6 0RF Rx Instructions: Hospice Patient hyoscyamine sulfate 0.125 mg tablet,disintegrating 0.125 - 0.25 mg PO Q4H PRN (Reason: secretions) Qty: 24 0RF Rx Instructions: Hospice Patient lorazepam 1 mg tablet 1 mg PO Q4H PRN (Reason: anxiety, DEL CID or nausea) Qty: 6 5RF Rx Instructions: Hospice Patient haloperidol lactate 2 mg/mL concentrate 1 mg PO Q6H PRN (Reason: agitation) Qty: 15 0RF Rx Instructions: Hospice Patient morphine concentrate 100 mg/5 mL (20 mg/mL) solution 5 - 20 mg PO Q1-4H MDD 5 mL PRN (Reason: moderate to severe pain or shortness of breath) Qty: 30 0RF Rx Instructions: Hospice Patient bisacodyl [Dulcolax (bisacodyl)] 10 mg suppository 10 mg UT daily PRN (Reason: constipation) Qty: 2 0RF Rx Instructions: Hospice Patient Insert 1 supp UT Daily PRN constipation (no BM in 3 days) calcium carbonate-vitamin D3 [Calcium 600 + D(3)] 1 EACH tablet 1 tab PO DAILY tramadol 50 mg Tablet 100 mg PO QHS duloxetine 60 mg capsule,delayed release(DR/EC) 60 mg PO BID Patient Comments: TAKE ONE CAPSULE BY MOUTH TWICE A DAY pregabalin 50 mg capsule 50 mg PO TID Patient Comments: TAKE ONE CAPSULE BY MOUTH THREE TIMES A DAY metoprolol succinate 25 mg Tablet Extended Release 24 Hr 25 mg PO DAILY Qty: 30 0RF nystatin 100,000 unit/gram Powder 1 applic topical BID Qty: 0 0RF Changed quetiapine 50 mg tablet 25 mg PO BID Qty: 0 0RF Held simvastatin [Zocor] 40 MG tablet 40 mg PO HS Hold Instructions: defer to outpatient team magnesium oxide 400 mg magnesium Tablet 400 mg PO BID Qty: 60 0RF Hold Instructions: defer to outpatient team, not taking during hospitalization glipizide 5 mg tablet 10 mg PO BID Hold Instructions: defer to outpatient team, not taking during hospitalization Patient Comments: TAKE TWO TABLETS BY MOUTH TWICE A DAY insulin lispro [Humalog KwikPen Insulin] 100 unit/mL insulin pen SUBCUT TIDWMEAL Hold Instructions: defer to outpatient team Rx Instructions: Sliding scale: 12-25 units insulin glargine [Lantus Solostar U-100 Insulin] 100 unit/mL (3 mL) Insulin Pen subcut BID Hold Instructions: defer to outpatient team Rx Instructions: Per Rx label on 08/17/22: 56 units BID; unable to confirm this dose w/ the patient Discontinued lisinopril 10 mg tablet 10 mg PO DAILY No Action aspirin 81 mg Tablet,Chewable 81 mg PO DAILY cholecalciferol (vitamin D3) 50 mcg (2,000 unit) tablet 4,000 unit PO DAILY Patient Comments: TAKE TWO TABLETS BY MOUTH EVERY DAY omeprazole 40 mg capsule,delayed release(DR/EC) 40 mg PO DAILY Patient Comments: TAKE ONE CAPSULE BY MOUTH EVERY DAY Discharge Instructions Instructions: Hospice Care (GEN) Stand Alone Forms: Nursing Discharge Form Referrals: Mary Ann Luo [Primary Care Provider] - (Call monday to make an Appointment in the next 1-2 weeks ) Activity:: Activity as Tolerated Equipment/Supplies:: hospice equipment Diet:: As Tolerated Discharge Orders Discharge Orders: Discharge Order (Routine); Ordered 01/15/23 Ordered By: Leonie Rodriguez Discharge Data Discharge Date/Time-TO BE ENTERED AT DEPARTURE: 01/15/23 11:36 DS: Summary Time Spent with Patient providing and/or coordinating discharge services: Greater than 30 minutes Status at Discharge Functional status at discharge: bed bound Overall status at discharge: patient is not back to baseline Mental Status: other (Cognitive impairment at baseline) Speech and Movement: speech and movement normal Mood: other (Cognitive impairment at baseline) Affect: normal affect Exam Const General: disheveled, frail appearing and ill appearing chronically Nutritional Appearance: obese Orientation: alert and awake HENMT Head: normal to inspection, normocephalic and atraumatic Resp Effort & Inspection: normal respiratory effort Auscultation: diminished lung sounds (throughout) Cardio Rate: regular rate Rhythm: regular rhythm GI Inspection: normal to inspection and obesity Palpation: soft Psych Mental Status: other (Cognitive impairment at baseline) Speech and Movement: speech and movement normal Mood: other (Cognitive impairment at baseline) Affect: normal affect DS: Data Vitals/I&O Vitals and I&O: Vital Signs Temperature 36.0 C L 01/15/23 08:23 Temperature Source Tympanic 01/15/23 08:23 Pulse 70 01/15/23 08:23 Pulse Rhythm Regular 01/15/23 04:19 Respiratory Rate 18 01/15/23 08:23 Respiratory Effort Normal, Non-Labored 01/15/23 04:19 Respiratory Depth Normal 01/15/23 04:19 Respiratory Pattern Normal 01/15/23 04:19 Blood Pressure 105/55 L 01/15/23 08:23 Blood Pressure Position Supine 01/04/23 09:18 Pulse Oximetry 98 01/15/23 08:23 Oxygen Delivery Method Room Air 01/15/23 08:23 Oxygen Flow Rate 0 01/15/23 08:23 Pain Level 8 01/13/23 15:39 Comment Auto BP taken on Left Radial. 01/12/23 23:05 Intake & Output 01/14/23 01/14/23 01/15/23 11:59 23:59 11:59 Output Total 500 / 1075 575 / 1075 575 / 575 Balance -500 / -1075 -575 / -1075 -575 / -575 Output: Urine 250 / 650 400 / 650 375 / 375 Stool 250 / 425 175 / 425 200 / 200 Other: Urine Color Dark Ana Yellow Light Ana Urine Appearance Clear Clear Clear Stool Size Moderate Stool Characteristics Soft Voiding Methods Indwelling Catheter Data Completed and Pending Labs on day of discharge: Labs from last 24 hours 01/14/23 01/14/23 12:40 10:57 WBC 9.82 Cancelled RBC 4.29 Cancelled Hgb 11.9 Cancelled Hct 38.0 Cancelled MCV 89 Cancelled MCH 27.7 Cancelled MCHC 31.3 L Cancelled RDW 14.2 Cancelled Plt Count 131 Cancelled MPV 10.6 Cancelled PFSH All Active Problems Palliative care encounter (Acute) Discharge planning issues (Acute) Counseling regarding goals of care (Acute) Altered mental status (Acute) Fall as cause of accidental injury at home as place of occurrence (Acute) Contusion of left lower extremity (Acute) Back contusion (Acute) Fall at home (Acute) Hypomagnesemia (Acute) Acute CVA (cerebrovascular accident) (Acute) Encounter for counseling regarding advance directives (Acute) Full code status (Acute) Deficit in activities of daily living (ADL) (Acute) Sedentary lifestyle (Acute) Need for home health care (Acute) Impaired instrumental activities of daily living (Acute) Yeast vaginitis (Acute) Pain (Acute) COPD (chronic obstructive pulmonary disease) (Chronic) Acute UTI (Acute) CHF (congestive heart failure) (Chronic) Fall (Acute) Anemia (Chronic) Mass of left ovary (Acute) Chronic kidney disease (Chronic) Essential hypertension (Chronic) Diabetes mellitus type 2 (Chronic) On Metformin Back pain (Acute) Morbid obesity (Chronic) Hyperlipidemia (Chronic) Depression (Chronic) Vitamin D deficiency (Chronic) History of colostomy (Chronic) Medical History Anemia (05/03/13) Hemoglobin 8.2. Anemia Depression Diabetes mellitus Diverticulitis Recurrent. S/p high risk hemicolectomy in the setting of sepsis and hypotension 03/22/2013. Complication of a stomal leak resulting in an abdominal abscess. Readmitted to [facility] [place] 05/03/13 emergently with sepsis syndrome and had an abdominal abscess drained. Completed rehab at [facility] with discharge most recently on after extensive dressing care of the abdominal wound with a wound VAC. 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 Leukocytosis. Intermittently febrile. Fall Gastroesophageal reflux disease GERD (gastroesophageal reflux disease) Hepatitis C Recent negative viral count. History of breast cancer History of hepatitis C History of incisional hernia History of renal failure Migraine Morbid obesity Osteopenia Palliative care patient Vitamin D deficiency Surgical History Colectomy H/O mastectomy Hernia Repair, Incisional x2 S/P cholecystectomy Family History Mother No problems noted. Father No problems noted. 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 Time Spent with Patient Time Spent with Patient: 45-69 minutes Time was spent: preparing to see the patient(eg.review tests), obtaining and/or reviewing separately otained hiistory, ordering medications,tests, procedures, referring, communicating with other health career guidance technician, indepentently interpreting results and care coordination
--- NOTE | 2023-01-15 10:34 | PT.INTREAT ---
PT Notes Visit Reasons: Cerebrovascular accident Inpatient Physical Therapy Treatment Note [facility] Date: 01/15/23 PRECAUTIONS: OBJECTIVE: Supine-sit: Refused THEREX: Supine shoulder flexion x 10, horz abd x 10, shoulder flexion x 10, rowing x 10, cw/ccw x 10 each, Q.S. x 10, SLR x 10, heel slides x 10, hip abd x 10, and ankle pumps x 10. ASSESSMENT: Pt fatigued quickly and did not wish to sit at the edge of the bed today. PLAN: Cont as per PT POC. TREATMENT CODE/TIME: 10:15-10:30 (15) TP
--- NOTE | 2023-01-15 11:41 | CMDISCH_ITS ---
Date of service: 01/15/23 Time of Service: 11:41 LACE Index Scoring Tool Questions: Length of Stay (in days): 7 - 13 Was the patient admitted via the E.D.?: Yes Comorbidities: Cerebrovascular Disease, Diabetes w/o Complication, Congestive Heart Failure, Chronic Pulmonary Disease and Liver or Renal Disease E.D. Visits: 4 Answers: Total Score: 17 Risk of Readmission: High Risk Care Management Discharge Plan Reason for Hospitalization: altered mental status Discharge Plan: Raven returned home today with a scheduled admission to Hospice this afternoon. Her daughter, Marcia, is her primary support, and confirmed that Raven's equipment, including a hospital bed, have been delivered, and the family is prepared for her arrival. Raven was transported via [facility], EMS, coordinated by CM. She will follow up with the hospice team and her discharge plan of care. She is happy to be going home. Patient/Family Education Needs: Review discharge instructions and limitations, discussion of self care needs including ask me three. Services Needed at Discharge: Home Health Care Services (hospice)
--- NOTE | 2023-01-16 08:47 | OTTR_ITS ---
Date of service: 01/13/23 Occupational Therapy Notes Occupational Therapy Inpatient Treatment Note Date: 01/13/23 PRECAUTIONS: Fall, standard, full SUBJECTIVE: Pt was lying in bed, she notes that she would like to return home. OBJECTIVE: PAIN:c/o pain in head stating she has a headache BATHING: max (A) set up Upper Body: (I) face and (B) UE Lower Body: mod (A) DRESSING: Upper Extremity: Mod (A) [facility] gown Lower Extremity: max (A) GROOMING: max (A) brushing hair due to knots/tangles, (I) with oral hygiene EATING: (I) seated in bed ASSESSMENT/ PLAN: OT and pt go over energy conservation techniques. She still had an extreme knot in her hair which OT was able to get out. Goal is to progress pt to sitting ADLs if she can tolerate this. TREATMENT CODES/TIME: [id number], 30 minutes Aisha Claros OTR/L [facility] [place], [place]
--- NOTE | 2023-01-16 08:51 | OT.INDS ---
Occupational Therapy Notes Occupational Therapy Inpatient Discharge Summary Date: 01/16/23 Dates of Service: 01/05/23-01/15/23 Referring Doctor:Dr. Rasheed FORBES Orders: Urgent Precautions: Fall, Standard, Full PATIENT PROFILE/ADMITTING DIAGNOSIS: Pt is a 72 year old female who was admitted through the ED on 01/04/23 for the following dx of acute CVA, altered mental status, chronic kidney, DM II, CHF, Depression and COPD. Past Medical History: All Active Problems? Altered mental status (Acute) Fall as cause of accidental injury at home as place of occurrence (Acute) Contusion of left lower extremity (Acute) Back contusion (Acute) Fall at home (Acute) Hypomagnesemia (Acute) UTI (urinary tract infection) (Acute) Acute CVA (cerebrovascular accident) (Acute) Encounter for counseling regarding advance directives (Acute) Full code status (Acute) Deficit in activities of daily living (ADL) (Acute) Sedentary lifestyle (Acute) Need for home health care (Acute) Impaired instrumental activities of daily living (Acute) Yeast vaginitis (Acute) Pain (Acute) COPD (chronic obstructive pulmonary disease) (Chronic) Acute UTI (Acute) CHF (congestive heart failure) (Chronic) Fall (Acute) Anemia (Chronic) Mass of left ovary (Acute) Chronic kidney disease (Chronic) Essential hypertension (Chronic) Diabetes mellitus type 2 (Chronic) On MetforminBack pain (Acute) Morbid obesity (Chronic) Hyperlipidemia (Chronic) Depression (Chronic) Vitamin D deficiency (Chronic) History of colostomy (Chronic) Medical History? Anemia (05/03/13) Hemoglobin 8.2.Anemia Depression Diabetes mellitus Diverticulitis Recurrent.? S/p high risk hemicolectomy in the setting of sepsis and hypotension 03/22/2013. Complication of a stomal leak resulting in an abdominal abscess.? Read[place] [facility] 05[place]03[place] emergently with sepsis syndrome and had an abdominal abscess drained. ? 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 Leukocytosis.? Intermittently febrile.Fall Gastroesophageal reflux disease GERD (gastroesophageal reflux disease) Hepatitis C Recent negative viral count.History of breast cancer History of hepatitis C History of incisional hernia History of renal failure Migraine Morbid obesity Osteopenia Palliative care patient Vitamin D deficiency Surgical History? Colectomy H/O mastectomy Hernia Repair, Incisional x2S/P cholecystectomy Social History/Home Situation: Pt reports that she lives alone in a private home. Her baseline she notes is pretty (I). She does have a tub shower so OT recommends a shower seat if pt returns home as well as grab bars for safety. She notes that she was (I) with driving prior and has 4 children and multiple grandchildren. She also reports that she does not have any pets and her home tasks she feels she is (I) with. She does get Meals on Wheels (3 meals per day) which she states is helpful. No HH services prior and no (A) from others. Equipment owned/DME: [employer] which she states that she utilizes for functional mobility SUBJECTIVE: NT OBJECTIVE:? FUNCTIONAL MOBILITY/ADLS: BATHING max (A) set up Bathing UE (I) lower face and (B) UE Bathing LE max (A) DRESSING Dressing UE Mod (A) Dressing LE Max (A) GROOMING Max (A) brushing hair, mod (A) oral hygiene TOILETING max (A) EATING (I) BALANCE: ? Static sitting Good Dynamic Sitting Fair-Good ASSESSMENT:?? Patient is a? 72-year-old female referred to occupational therapy services with diagnosis of acute CVA, altered mental status, chronic kidney, DM II, CHF, Depression and COPD. Patient did make gains in terms of her functional (I) at this time. She went from max (A) for most of her ADLs at her initial evaluation to being able to perform with (A). She was cleared to return home with an order for hospice care at that time. GOALS 1.? Transfers (I) 2.? Dressing seated in chair min (A) 3.? Bathing seated in chair min (A) 4.? Toileting on commode (I) 5.? Eating (I) PLAN OF CARE/TREATMENT PLAN: Pt was discharged home on 01/15 with consult for hospice services. DISCHARGE RECOMMENDATIONS Based on pts current level of function, decreased functional activity tolerance, altered mental status and UE weakness- OT recommends that pt go SNF vs. [facility] at this time for progressive rehabilitation. OT will conitnue to assess with pts goal of returning home if possible. If pt returns home- she will need services, a shower seat, grab bars TREATMENT TIME/MINUTES/CODES N/A Aisha Claros, OTR/L [facility]
--- NOTE | 2023-01-17 13:50 | INDS_ITS ---
Date of service: 01/16/23 PT Notes Visit Reasons: Cerebrovascular accident Physical Therapy Inpatient Discharge Summary Date: 01/16/23 Dates of service: 01/10/2023 through 01/15/2023 This is a clinical summary of care provided for the duration of dates listed above. No charge was made in the completion of this documentation. Referring Doctor: Leonie Rodriguez MD PT Orders: PT CONSULT: Eval & treat Precautions: Fall. Standard. Confusion. Patient Profile/Admitting Diagnosis:?Raven is a 72 yo female that presented to the ER on 01/04/23 via EMS for altered mental status. She has been very confused over the last several days and mobility has declined. Nursing reports yesterday she was fairly clear and doing well, but confusion has resumed this morning. She has also been more agitated and wanting to get out of bed. PMHX: See EMR Social History/Home Situation: Lives with boyfriend in [facility], uses motorized wheelchair. Equipment Owned/DME: motorized wheelchair, [employer] Subjective: NT. See most recent INDUSTRIAL GAS SERVICE HELPER notes. Objective:? General Observation: NT. See most recent INDUSTRIAL GAS SERVICE HELPER notes. Mental Status: NT. See most recent INDUSTRIAL GAS SERVICE HELPER notes. Pain: NT. See most recent INDUSTRIAL GAS SERVICE HELPER notes. ROM: Right Upper Extremity: Shoulder Flexion to 90 degrees. Shoulder abduction to 90 degrees. Remainder is WFL. Left Upper Extremity: Shoulder Flexion to 90 degrees. Shoulder abduction to 90 degrees. Remainder is WFL. Right Lower Extremity: Unable to formerly assess, reports discomfort with lower leg movements Left Lower Extremity: Unable to formerly assess, reports discomfort with lower leg movements Strength: Right Upper Extremity: Unable to formerly assess, weakness present Left Upper Extremity: Unable to formerly assess, weakness present Right Lower Extremity: Unable to formerly assess, generally weak Left Lower Extremity: Unable to formerly assess, generally weak Sensation:?Intact as to pain and pressure on bilateral lower extremities. ED MOBILITY/TRANSFERS? Supine-sit: mod assist with extra time.? Sit-supine: min assist with extra time, tilt head of bed down to scoot up.? Gait:?Unable Stairs:?Unable Balance:? Static Sitting: Poor Dynamic Sitting: Poor Static Standing: Unable Dynamic Standing: Unable Assessment: Patient to go home with family on hospice level of care. Patient continues to present with clinical signs and symptoms consistent with current/admitting diagnoses that have resulted to mobility limitations, gait instability, generalized weakness, and impairment of motor control as demonstrated by the following impairment level findings: 1. Decreased strength to all major muscle groups 2. Impaired sitting/standing balance 3. Impaired activity tolerance Impairments are contributing to the following functional limitations: 1. Dependent bed mobility skills 2. Increased dependence with transfers 3. Inability to safely ambulate without assistive device and physical assistance 4. Increase completion time for mobility ADL performance 5. Increased fall risk Goals: Goals x1 week 1. Supine-Sit: independent NOT MET 2. Sit-Supine: independent NOT MET 3. Sit-Stand: independent NOT MET 4. Stand-Sit: independent NOT MET 5. Bed-Chair: independent NOT MET 6. Chair-Bed: independent NOT MET 7. Independent gait on level surface with use of least restrictive device for at least 300 feet without report of pain nor dyspnea NOT MET 8. Good static and dynamic standing balance/tolerance NOT MET 9. Independent with home exercise program NOT MET 10. Independent stair negotiation while holding onto bilateral rails for at least 10 steps without report of pain nor dyspnea NOT MET Discharge Plan DISCHARGE RECOMMENDATIONS: SNF versus LTC based on ability to participate and progress TREATMENT CODE/TIME: KALA Thank you for the opportunity to participate in the care of this patient. Selene Collado PT, DPT, CLT [facility] [place], [place]
== END 2023-01-15 11:36 | disposition hospice, home (50) | DRG 69 ==
LOC: ER 12:16 → MS 12:35
PROVIDERS: Internal Medicine; Nurse Practitioner Acute Care; Nurse Practitioner Family; Admitting Provider Family Medicine; Emergency Provider Registered Nurse Emergency; PCP Family Medicine; Visit Provider Family Medicine
DX: G45.9 Transient cerebral ischemic attack, unspecified (principal); N39.0 Urinary tract infection, site not specified; N17.9 Acute kidney failure, unspecified; E66.2 Morbid (severe) obesity with alveolar hypoventilation; I13.0 Hypertensive heart and chronic kidney disease with heart failure and stage 1 through stage 4 chronic kidney disease, or unspecified chronic kidney disease; Z68.43 Body mass index [BMI] 50.0-59.9, adult; F05 Delirium due to known physiological condition; W19.XXXA Unspecified fall, initial encounter; I50.9 Heart failure, unspecified; E78.5 Hyperlipidemia, unspecified; F32.A Depression, unspecified; J44.9 Chronic obstructive pulmonary disease, unspecified; N18.9 Chronic kidney disease, unspecified; Z85.3 Personal history of malignant neoplasm of breast; Z99.3 Dependence on wheelchair; Z93.3 Colostomy status; Z79.4 Long term (current) use of insulin; Z79.84 Long term (current) use of oral hypoglycemic drugs; S80.12XA Contusion of left lower leg, initial encounter; D64.9 Anemia, unspecified; E11.22 Type 2 diabetes mellitus with diabetic chronic kidney disease; M54.9 Dorsalgia, unspecified; E55.9 Vitamin D deficiency, unspecified; K21.9 Gastro-esophageal reflux disease without esophagitis; Z86.19 Personal history of other infectious and parasitic diseases; Z90.49 Acquired absence of other specified parts of digestive tract; R41.89 Other symptoms and signs involving cognitive functions and awareness; B96.20 Unspecified Escherichia coli [E. coli] as the cause of diseases classified elsewhere
CPT/HCPCS: 36415; 36569; 70544; 70547; 76770; 80048; 80053; 80307; 84145; 85027; 87040; 87077; 93005; 97110; 97163; 97166; 97530; 97535; 99291; 70450; 70551; 71045; 80320; 81003; 81015; 82565; 83605; 83735; 83880; 84300; 84484; 85025; 85610; 86140; 87086; 87186; 93010; 99222; 99232; 99233; 99239; J0131; J0696; J1644; J2060

== ENCOUNTER 2023-01-19 19:01 | Outpatient (REF) | payer MEDICARE, MEDICAID, SELFPAY ==
[2023-01-19 18:52] LABS: Bilirubin Small (Negative); Blood Moderate (Negative); Clarity Cloudy (Clear); Glucose Negative (Negative); Ketones Trace mg/dL (Negative); Leukocyte Esterase Large (Negative); Nitrite Negative (Negative); Urobilinogen 0.2 mg/dL (Up to 0.2)
[2023-01-19 19:02] LABS: Bacteria Many HPF (Negative); C & S Indicated? Yes; Casts Negative LPF (Negative); Crystals Negative HPF (Negative); Epithelial Cells Few HPF (Negative); Mucus Moderate (Negative); WBC >50 HPF (0-5)
== END 2023-01-19 19:02 | disposition home or self-care (01) ==
LOC: LBN 19:01
PROVIDERS: PCP Family Medicine; Visit Provider Nurse Practitioner Family
DX: R30.0 Dysuria (principal)
CPT/HCPCS: 87077; 81003; 81015; 87086; 87186

== ENCOUNTER 2023-01-22 19:52 | Inpatient (IN) | payer OTHER, SELFPAY ==
--- NOTE | 2023-01-22 19:56 | W.PM.HP.N ---
Date of service: 01/22/23 Time of Service: 20:00 Assessment and Plan Assessment and plan (1) Admission for hospice care: Status: Acute Assessment and plan: admitted for hospice symptom management CADD pump recommended d/t previous difficulty obtaining IV access all other medications ordered via SC, IM, WY routes (2) Pain: Status: Acute Assessment and plan: hydromorphone CADD basal 0.2mg/hr, titrate up by 0.2mg to comfort up to 4mg/hr bolus 0.2mg q15m PRN (3) Agitation: Status: Acute Assessment and plan: lorazepam SC 0.5-1mg q1h PRN haloperidol IM 5mg q20m PRN (4) Confusion: Status: Acute Assessment and plan: see above (5) End of life care: Status: Acute Assessment and plan: Raven has made less than 100cc of urine in the past 72 hours it is typically believed that a person dies w/in 72 hours after they stop making urine, family is aware (6) Sedentary lifestyle: Status: Acute Assessment and plan: reposition for comfort, pre-medicate as appropriate (7) COPD (chronic obstructive pulmonary disease): Status: Chronic Assessment and plan: O2 ordered for PRN for comfort (8) CHF (congestive heart failure): Status: Chronic (9) Chronic kidney disease: Status: Chronic Assessment and plan: no urine output (10) Myoclonic jerking: Status: Acute Assessment and plan: lorazepam as above (11) Apnea: Status: Acute Assessment and plan: intermittent throughout today per family report witnessed 5 seconds or less apnic episodes this evening History of Present Illness Narrative: Ms. Carbajal is a 72 y/o F on hospice 2/2 CVA w/multiple co-morbidities including CHF, COPD, CKD; she is being admitted for symptom management; present on admission daughter/HCA Marcia, granddaughter Vanita Carbajal has had increasing restlessness, mumbling, appearing scared, grimacing, groaning, and jerking and pain over the past 24 hours; her daughter Marcia has been having a difficult time managing at home medications d/t Raven's resistance to oral medications; - she was started on a fentanyl 12mcg, increased to 25mcg w/limited effect over past 24 hours, so far today she has had liquid morphine 20mg 4 doses at q2-4 interval, and 2 doses of 30mg q2h more recently, her pain appears more controlled at this time - her restlessness and agitation have not been resolved w/pain control, she has myoclonus jerking intermittent, increasingly worse today, she has received lorazepam 1mg 3x PO w/limited to no effect, haldol 1mg 3 doses w/no effect; - family feels unable to provide care at home, neymar r/t NPO preference of patient and are requesting hospital admission, they are aware of her preference to in home - she had not made urine in 3 days, <100cc's today, catheter in place - bowels reduced, has not required change in 2 days - today has had intermittent periods of apnea, unsure of length of time; breathing w/some mucous build up, scopolamine she is on comfort measures at this time, w/focus on symptom management family is aware that Raven's is near per HH RN: O2 today mid 70s-83; pulse ranging 105-113 Review of Systems Narrative: as per HPI pt non-verbal at this time PFSH All Active Problems Fever (Acute) Oliguria (Acute) Apnea (Acute) Myoclonic jerking (Acute) End of life care (Acute) Confusion (Acute) Agitation (Acute) Admission for hospice care (Acute) Counseling regarding goals of care (Acute) Altered mental status (Acute) Acute CVA (cerebrovascular accident) (Acute) Encounter for counseling regarding advance directives (Acute) Full code status (Acute) Deficit in activities of daily living (ADL) (Acute) Sedentary lifestyle (Acute) Need for home health care (Acute) Impaired instrumental activities of daily living (Acute) Yeast vaginitis (Acute) Pain (Acute) COPD (chronic obstructive pulmonary disease) (Chronic) Acute UTI (Acute) CHF (congestive heart failure) (Chronic) Fall (Acute) Anemia (Chronic) Mass of left ovary (Acute) Chronic kidney disease (Chronic) Essential hypertension (Chronic) Diabetes mellitus type 2 (Chronic) On Metformin Back pain (Acute) Morbid obesity (Chronic) Hyperlipidemia (Chronic) Depression (Chronic) Vitamin D deficiency (Chronic) History of colostomy (Chronic) Medical History Anemia (05/03/13) Hemoglobin 8.2. Anemia Depression Diabetes mellitus Diverticulitis Recurrent. S/p high risk hemicolectomy in the setting of sepsis and hypotension 03/22/2013. Complication of a stomal leak resulting in an abdominal abscess. Readmitted to [facility] 05/03/13 emergently with sepsis syndrome and had an abdominal abscess drained. Completed rehab at [facility] with discharge most recently on after extensive dressing care of the abdominal wound with a wound VAC. 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 Leukocytosis. Intermittently febrile. Fall Gastroesophageal reflux disease GERD (gastroesophageal reflux disease) Hepatitis C Recent negative viral count. History of breast cancer History of hepatitis C History of incisional hernia History of renal failure Migraine Morbid obesity Osteopenia Palliative care encounter Palliative care patient Vitamin D deficiency Surgical History Colectomy H/O mastectomy Hernia Repair, Incisional x2 S/P cholecystectomy Family History Mother No problems noted. Father No problems noted. 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 Meds Allergies and Home Medications Allergies Allergy/AdvReac Type Severity Reaction Status Date / Time epinephrine Allergy Severe chest Unverified 12/28/22 22:12 pain/heart attack Penicillins Allergy Intermediate rsh fever Unverified 12/28/22 22:12 banana [Banana] Allergy Unverified 12/28/22 22:12 NSAIDS (Non-Steroidal Allergy unkown Unverified 12/28/22 22:12 Anti-Inflamma Sulfa (Sulfonamide Allergy rash,fever Unverified 12/28/22 22:12 Antibiotics) Tetracyclines Allergy rash fever Unverified 12/28/22 22:12 sodium polystyrene sulfonate AdvReac Severe tachy/dyspn Unverified 12/28/22 22:12 [From Kayexalate] ea/rash Niacin Preparations AdvReac Intermediate flushing Unverified 12/28/22 22:12 Home Medications Medication Instructions Recorded Confirmed Type calcium carbonate 600 mg-vitamin 1 tab PO DAILY 05/10/13 01/23/23 History D3 10 mcg (400 unit) tablet (Calcium 600 + D(3)) simvastatin 40 mg tablet (Zocor) 40 mg PO HS 05/10/13 01/07/23 History cholecalciferol (vitamin D3) 50 4,000 unit PO DAILY 11/05/21 01/23/23 History mcg (2,000 unit) tablet duloxetine 60 mg capsule,delayed 60 mg PO BID 11/05/21 01/23/23 History release glipizide 5 mg tablet 10 mg PO BID 11/05/21 01/23/23 History omeprazole 40 mg capsule,delayed 40 mg PO DAILY 11/05/21 01/07/23 History release pregabalin 50 mg capsule 50 mg PO TID 11/05/21 01/07/23 History metoprolol succinate 25 mg 25 mg PO DAILY #30 tabs 11/09/21 01/07/23 Rx tablet,extended release 24 hr magnesium oxide 400 mg PO BID #60 tabs 12/02/21 01/07/23 Rx tramadol 50 mg tablet 100 mg PO QHS 03/17/22 01/07/23 History aspirin 81 mg chewable tablet 81 mg PO DAILY 03/24/22 01/23/23 History nystatin 100,000 unit/gram topical 1 applic topical BID #0 grams 09/06/22 01/07/23 Rx powder insulin glargine 100 unit/mL (3 subcut BID 01/07/23 History mL) subcutaneous pen (Lantus Solostar U-100 Insulin) insulin lispro 100 unit/mL subcut TIDWMEAL 01/07/23 History subcutaneous pen (Humalog KwikPen (U-100) Insulin) acetaminophen 650 mg rectal 650 mg WY Q6H PRN fever, mild pain 01/14/23 01/23/23 Rx suppository #6 supp bisacodyl 10 mg rectal suppository 10 mg WY daily PRN constipation #2 01/14/23 01/23/23 Rx (Dulcolax (bisacodyl)) supp haloperidol lactate 2 mg/mL oral 1 mg (0.5 mL) PO Q6H PRN agitation 01/14/23 01/23/23 Rx concentrate #15 mL hyoscyamine sulfate 0.125 mg 0.125 - 0.25 mg PO Q4H PRN 01/14/23 01/23/23 Rx disintegrating tablet secretions #24 tabs lorazepam 1 mg tablet 1 mg PO Q4H PRN anxiety, DEL CID or 01/14/23 01/23/23 Rx nausea #6 tabs morphine concentrate 100 mg/5 mL 5 - 20 mg (0.25 - 1 mL) PO Q1-4H 01/14/23 01/23/23 Rx (20 mg/mL) oral solution PRN moderate to severe pain or shortness of breath #30 mL prochlorperazine maleate 10 mg 10 mg PO Q6H PRN nausea and 01/14/23 Rx tablet vomiting #6 tabs quetiapine 50 mg tablet 25 mg PO BID #0 tabs 01/15/23 01/07/23 Rx fentanyl 12 mcg/hr transdermal 1 patch transdermal Q72H #5 ea 01/21/23 01/23/23 Rx patch scopolamine base 1 mg over 3 days 1 patch transdermal Q3D PRN nausea 01/21/23 01/23/23 Rx transdermal patch and vomiting #4 ea Exam Const General: comfortable, no acute distress and ill appearing chronically Nutritional Appearance: overweight Orientation: obtunded Limitations: altered mental status [facility] Head: normal to inspection, normocephalic and no acral cyanosis Mouth: lip normal, moist mucous membranes abnormal and oral mucosa abnormal edematous Resp Other: respirations shallow, even, unlabored; 3 periods of apnea no longer than 5 seconds observed ausc: limited to anterior, diminished at bases Cardio Jugular venous pressure: no JVD Rate: tachycardic Rhythm: regular rhythm Pulses: radial pulses present on the left 2+ GI Inspection: large pannus Palpation: soft Auscultation: hypoactive bowel sounds Other: colostomy bag in place, mild semi solid brown stool in bag Skin General skin exam: no rashes or lesions noted (did not conduct full skin exam) Neuro Other: intermittent myoclonus jerking Extrem Other: BUE and BLE warm to touch trace edema BLE, pulses present 2+ BLE DP Psych Other: lying comfortably, eyes flittering open intermittent, non-responsive squeezes hand when discussing family Time Spent Time spent with Patient: 55-74 minutes Time was spent: preparing to see the patient(eg.review tests), obtaining and/or reviewing separately otained hiistory, ordering medications,tests, procedures, referring, communicating with other health manager of care, counseling the patient and care coordination
[2023-01-22] MEDS: LORazepam 2 MG/ML VIAL IV/SC (20:51)
[2023-01-22] MEDS: HYDROmorphone 200 MG in CADD PUMP CASSETTE 1 EACH, Normal Saline 80 ML SC INF (22:07)
[2023-01-22 22:12] VITALS: RESP 11
--- NOTE | 2023-01-22 22:13 | NUR.NOTE ---
@ 9111 this RN and ESTHER Crawford remove 2 12 mcg fetanyl patches from pt's LLQ abd. and placed in black box Nursing Note:
[2023-01-22 22:50] VITALS: O2SAT 95
--- NOTE | 2023-01-23 04:40 | NUR.NOTE ---
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 This RN had asked pt to raise head when repositioning pt in bed with EMS staff and pt followed command. pt appeared drowsy and in pain, administered prn meds see OCT. pt fell asleep little after family members and hospitalist came to bedside. Family members provided history. A scop patch is behind pt's left ear from home; 2 12 mcg fetanyl patches to abdomen from home, both were removed before administering CADD pump - see notes. pt remained comfortable throughout shift - please see flowcharts for further details. Nursing Note:
[2023-01-23] MEDS: LORazepam 2 MG/ML VIAL IV/SC ×4 (08:02→18:04)
--- NOTE | 2023-01-23 11:46 | PGE_ITS ---
Date of Service Date of service: 01/23/23 Time of Service: 07:30 Assessment and Plan Assessment and plan (1) Admission for hospice care: Status: Acute Assessment and plan: admitted for hospice symptom management (2) Myoclonic jerking: Status: Acute Assessment and plan: recommend Ativan administered to reduce sxs continue to monitor improved w/one dose overnight (3) Oliguria: Status: Acute Assessment and plan: Raven has made less than 100cc of urine in the past 72 hours prior to admission, per family report 450ccs last evening, 50ccs since arrival it is typically believed that a person dies w/in 72 hours after they stop making urine UTI present, on comfort, family preference for no abx treatment (4) Apnea: Status: Acute Assessment and plan: episodes increasing, up to 30 sec observed w/nursing appears in no resp distress today (5) Pain: Status: Acute Assessment and plan: hydromorphone CADD basal 1mg/hr, titrate up by 0.2mg to comfort up to 4mg/hr - stable on 1mg/hr bolus 0.2mg q15m PRN (6) Agitation: Status: Acute Assessment and plan: lorazepam SC 0.5-1mg q1h PRN haloperidol IM 5mg q20m PRN (7) Confusion: Status: Acute Assessment and plan: see above (8) End of life care: Status: Acute Assessment and plan: Raven will remain at [facility] through EOL - family not at bedside, left last night in hope that Raven would pass - there is something which Raven is holding on to and no one is sure what it is at this point, potentially something w/daughter's, SW w/hospice has been working w/family (9) Sedentary lifestyle: Status: Acute Assessment and plan: reposition for comfort only, pre-medicate as appropriate (10) COPD (chronic obstructive pulmonary disease): Status: Chronic Assessment and plan: O2 ordered for PRN for comfort on today at 2L (11) CHF (congestive heart failure): Status: Chronic (12) Chronic kidney disease: Status: Chronic Subjective Subjective Interval history since last seen: Ms. Carbajal has remained comfortable over night; she has required only one bolus , this am, of hydromorphone, otherwise has remained comfortable on continuous infusion set at 1mg/hr 450CC of urine emptied from catheter on arrival last night; since that time only 50ccs no additional BM noted in colostomy bag periods of apnea witnessed, at least 1 up to 30 seconds myoclonus jerking continues, albeit reduced from arrival, only 1 dose of lorazepam since arrival no haldol doses family left last night, no one has returned yet today; family/HCA have expressed that Ms. Carbajal would not want Bill visiting her and have requested he not be allowed in room Exam Const General: comfortable, no acute distress and ill appearing chronically Nutritional Appearance: overweight Orientation: obtunded Limitations: altered mental status [facility] Head: normal to inspection, normocephalic and no acral cyanosis Mouth: lip normal, moist mucous membranes abnormal and oral mucosa abnormal edematous Resp Other: respirations shallow, even, unlabored; intermittent periods of apnea no longer than 5 seconds observed ausc: limited to anterior, CTA, diminished at bases Cardio Jugular venous pressure: no JVD Rate: tachycardic Rhythm: regular rhythm Pulses: radial pulses present on the left 2+ GI Inspection: large pannus Palpation: soft Auscultation: hypoactive bowel sounds Other: colostomy bag in place, no stool in bag nontender to light palpation Skin General skin exam: no rashes or lesions noted (did not conduct full skin exam) Neuro Other: intermittent myoclonus jerkin, reduced compared to last evening Extrem Other: BUE and BLE warm to touch trace edema BLE, pulses present 2+ BLE DP Psych Other: lying comfortably, eyes closed, non-responsive Objective Last Vital Signs Resp 11 L 01/22/23 22:12 Pulse Ox 95 01/22/23 22:50 Time Spent with Patient Time Spent with Patient: 25-34 minutes Time was spent: preparing to see the patient(eg.review tests), ordering medications,tests, procedures, referring, communicating with other health health care manager and care coordination
--- NOTE | 2023-01-23 12:07 | PDOC.CMIN ---
Date of service: 01/23/23 Time of Service: 12:07 Care Management Initial Assmt Initial Assessment REASON FOR HOSPITALIZATION:: hospice symptom management PREVIOUS FUNCTIONAL STATUS/SOCIAL/FAMILY SUPPORTS:: Raven lives in [facility] with her boyfriend Rodolfo. She has three daughters who live locally. Raven was recently admitted to [facility] (01/04/23) and was admitted to hospice following discharge. She has been readmitted to [facility] for symptom management and end of life care. CURRENT FUNCTIONAL STATUS:: Raven is receiving IV Hydromorphone via CADD pump. She did not respond when CM tried to talk with her, however she did appear comfortable. Periods of apnea were also noted during the visit. Raven had family with her on arrival but CM has not seen any visitors today, although they may have been at [facility] at some point during the day. ADVANCE DIRECTIVES:: On file. [employer] Has patient been provided with info about the portal/API?: Yes Did the patient sign up for the portal?: No CODE STATUS:: DNR/DNI (comfort measures) CODE STATUS COMMENT:: comfort measures, end of life care INSURANCE COVERAGE / FINANCIAL ISSUES:: Hospice CURRENT HOME/COMMUNITY SERVICES/EQUIPMENT:: hospice PRIMARY CARE PHYSICIAN:: Elisabet Carroll PLAN:: Raven will likely remain at [facility] for end of life care. Her pain cannot be managed at home any longer. will continue to support Raven and her family through this difficult time. [facility] All Active Problems Oliguria (Acute) Apnea (Acute) Myoclonic jerking (Acute) End of life care (Acute) Confusion (Acute) Agitation (Acute) Admission for hospice care (Acute) Counseling regarding goals of care (Acute) Altered mental status (Acute) Fall as cause of accidental injury at home as place of occurrence (Acute) Contusion of left lower extremity (Acute) Back contusion (Acute) Fall at home (Acute) Hypomagnesemia (Acute) Acute CVA (cerebrovascular accident) (Acute) Encounter for counseling regarding advance directives (Acute) Full code status (Acute) Deficit in activities of daily living (ADL) (Acute) Sedentary lifestyle (Acute) Need for home health care (Acute) Impaired instrumental activities of daily living (Acute) Yeast vaginitis (Acute) Pain (Acute) COPD (chronic obstructive pulmonary disease) (Chronic) Acute UTI (Acute) CHF (congestive heart failure) (Chronic) Fall (Acute) Anemia (Chronic) Mass of left ovary (Acute) Chronic kidney disease (Chronic) Essential hypertension (Chronic) Diabetes mellitus type 2 (Chronic) On Metformin Back pain (Acute) Morbid obesity (Chronic) Hyperlipidemia (Chronic) Depression (Chronic) Vitamin D deficiency (Chronic) History of colostomy (Chronic) Medical History Anemia (05/03/13) Hemoglobin 8.2. Anemia Depression Diabetes mellitus Diverticulitis Recurrent. S/p high risk hemicolectomy in the setting of sepsis and hypotension 03/22/2013. Complication of a stomal leak resulting in an abdominal abscess. Readmitted to [facility] 05/03/13 emergently with sepsis syndrome and had an abdominal abscess drained. Completed rehab at [facility] with discharge most recently on after extensive dressing care of the abdominal wound with a wound VAC. 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 Leukocytosis. Intermittently febrile. Fall Gastroesophageal reflux disease GERD (gastroesophageal reflux disease) Hepatitis C Recent negative viral count. History of breast cancer History of hepatitis C History of incisional hernia History of renal failure Migraine Morbid obesity Osteopenia Palliative care encounter Palliative care patient Vitamin D deficiency Surgical History Colectomy H/O mastectomy Hernia Repair, Incisional x2 S/P cholecystectomy Family History Mother No problems noted. Father No problems noted. 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
[2023-01-23 15:18] VITALS: RESP 10
[2023-01-23] MEDS: Glycopyrrolate 0.2 MG/1 ML VIAL IVP (16:11)
[2023-01-23] MEDS: Haloperidol 5 MG/ML VIAL IM ×2 (16:11→18:04)
--- NOTE | 2023-01-24 08:03 | PGE_ITS ---
Date of Service Date of service: 01/24/23 Time of Service: 07:45 Assessment and Plan Assessment and plan (1) Admission for hospice care: Status: Acute Assessment and plan: admitted for hospice symptom management (2) Myoclonic jerking: Status: Acute Assessment and plan: appears much more relaxed today, no abnormal movements continue Ativan PRN (3) Oliguria: Status: Acute Assessment and plan: 45cc in past 24 hours UTI present, on comfort, family preference for no abx treatment (4) Apnea: Status: Acute Assessment and plan: episodes increasing, up to 30 sec observed w/nursing, ongoing overnight appears in no resp distress today (5) Pain: Status: Acute Assessment and plan: hydromorphone CADD basal 2mg/hr, titrate up by 0.2mg to comfort up to 4mg/hr - stable on 2mg/hr bolus 1mg q15m PRN, pre-medicate w/repositioning (6) Agitation: Status: Acute Assessment and plan: lorazepam SC 0.5-1mg q1h PRN haloperidol IM 5mg q20m PRN (7) Confusion: Status: Acute Assessment and plan: see above (8) End of life care: Status: Acute Assessment and plan: Raven will remain at [facility] through EOL - family not at bedside, visited [facility] Raven's life is measured in hours, less likely days (9) Sedentary lifestyle: Status: Acute Assessment and plan: reposition for comfort only, pre-medicate as appropriate (10) COPD (chronic obstructive pulmonary disease): Status: Chronic Assessment and plan: O2 ordered for PRN for comfort (11) CHF (congestive heart failure): Status: Chronic (12) Chronic kidney disease: Status: Chronic (13) Fever: Status: Acute Assessment and plan: suspect terminal fever nursing to administer apap 650mg SD Subjective Subjective Interval history since last seen: Raven has remained comfortable overnight - she required 4 boluses overnight, especially with repositioning, her basal rate as been increased to 2mg with good effect - she has continued to have apnea episodes, up to 30 seconds at a time, her berathing has remained comfortable - she has made 45ccs of urine in the past 24 hours, no stools - required atropine 1 time, will change scopolamine patch today - continue w/Ativan 1mg w/regular doses, she appears more relaxed today, no myoclonus jerking Family visited yesterday for a bit and enjoyed spending time with her. Exam Const General: comfortable, no acute distress and ill appearing chronically Nutritional Appearance: overweight Orientation: obtunded Limitations: altered mental status Other: hot to touch, dewy HENMT Head: normal to inspection and normocephalic Mouth: moist mucous membranes abnormal and oral mucosa abnormal edematous Resp Other: respirations shallow, unlabored; intermittent periods of apnea no longer than 5 seconds observed ausc: limited to anterior, wheezing and rhonchi present, w/increased gurgling, diminished at bases Cardio Rate: tachycardic Rhythm: regular rhythm GI Inspection: large pannus Palpation: soft Auscultation: hypoactive bowel sounds Other: colostomy bag in place, no stool in bag nontender to light palpation Skin General skin exam: no rashes or lesions noted (did not conduct full skin exam) Extrem Other: pulses faint BUE/BLE 1+ Psych Other: lying comfortably, eyes closed, non-responsive Objective Last Vital Signs Resp 10 L 01/23/23 15:18 Pulse Ox 95 01/22/23 22:50 Time Spent with Patient Time Spent with Patient: 25-34 minutes Time was spent: preparing to see the patient(eg.review tests), referring, communicating with other health home care liaison, counseling the patient (patient's family ) and care coordination
[2023-01-24] MEDS: Acetaminophen 650 MG SUPP PR ×2 (08:12→14:15)
[2023-01-24] MEDS: Scopolamine 1 MG/3 DAYS PATCH TD (08:13)
--- NOTE | 2023-01-24 12:17 | NUR.NOTE ---
Nursing Note: At approximately 1114 on 01/24/23, this RN entered the pt.'s room to round on the pt., and noted that there were three family members at the pt.'s bedside. One of the visitors identified herself as Marcia Granados (sp?), the pt.'s daughter (and pt.'s healthcare agent). RN updated the pt.'s daughter regarding how the pt. has been so far this morning and interventions that have been performed to help keep the pt. comfortable, including administering a bolus of pain medication from the [place] hydromorphone (Dilaudid) CADD pump, administering [place] acetaminophen (Tylenol) for diaphoresis, turning and repositioning as necessary, and performing hygiene care. Pt.'s daughter verbalized understanding and presented with no questions at this time. Rn encouraged the family members to ring if they needed/wanted something for the pt. or themselves. RN then informed the family members that a call would be placed to nutrition services to have a refreshment cart brought up. Family members thanked the RN. RN then left the room.
--- NOTE | 2023-01-24 15:45 | NUR.NOTE ---
Pt.passed at 1445 as witnessed by Thais Albarado, ESTHER and Jay Bliss RN.Nursing Note:
--- NOTE | 2023-01-24 16:57 | PDOC.CMDIS ---
Date of service: 01/24/23 Time of Service: 16:57 Care Management Discharge Plan Reason for Hospitalization: hospice symptom management Discharge Plan: Raven peacefully this afternoon at 2:45 pm.
== END 2023-01-24 16:43 | disposition expired | DRG 65 ==
PROVIDERS: Admitting Provider Family Medicine; PCP Family Medicine; Visit Provider Family Medicine
DX: I63.9 Cerebral infarction, unspecified (principal); N39.0 Urinary tract infection, site not specified; Z51.5 Encounter for palliative care; J44.9 Chronic obstructive pulmonary disease, unspecified; N18.9 Chronic kidney disease, unspecified; I50.9 Heart failure, unspecified; G25.3 Myoclonus; R50.9 Fever, unspecified; R41.0 Disorientation, unspecified; R45.1 Restlessness and agitation; W19.XXXA Unspecified fall, initial encounter; S80.12XA Contusion of left lower leg, initial encounter; E83.42 Hypomagnesemia; R52 Pain, unspecified; D64.9 Anemia, unspecified; E11.9 Type 2 diabetes mellitus without complications; Z79.84 Long term (current) use of oral hypoglycemic drugs; E66.01 Morbid (severe) obesity due to excess calories; E78.5 Hyperlipidemia, unspecified; F32.A Depression, unspecified; E55.9 Vitamin D deficiency, unspecified; Z85.3 Personal history of malignant neoplasm of breast; M85.80 Other specified disorders of bone density and structure, unspecified site; K21.9 Gastro-esophageal reflux disease without esophagitis; Z90.49 Acquired absence of other specified parts of digestive tract; R34 Anuria and oliguria; R06.81 Apnea, not elsewhere classified; Z72.89 Other problems related to lifestyle
CPT/HCPCS: J1170; J1630; J2060